=== PATIENT | female | born 1950 | race Caucasian/White ===

== ENCOUNTER 2021-11-28 00:56 | Day surgery (SDC) | payer MEDICARE, SELFPAY ==
[2021-10-12 14:16] VITALS: BMI 19.1
[2021-11-22 14:52] VITALS: BMI 19.1
--- NOTE | 2021-11-25 13:34 | PM.HPGS ---
History of Present Illness History of Present Illness Consent: Risks, benefits, and alternatives have been discussed and questions answered. Patient agrees to proceed with procedure. Chief complaint: positive cologuard; GERD Narrative: Dawn Bocanegra is a 70 year old female with a history of polyps, here for colon cancer screening; she also suffers from chronic acid reflux symptoms for which she has been on pantoprazole. Recently however she has had a weight loss about 30 lb along with a drop in her appetite. She denies abdominal pain Review of Systems Review of Systems: All systems reviewed & are unremarkable except as noted in HPI and below PMFSH Social History Social History Smoking packs per day: 1 Smoking cigarettes per day: 20.0 Years smoked: 40 Smoking pack-years: 40.00 Smoking status: Current every day smoker Tobacco type: cigarettes Alcohol intake: never Substance use: never Substance use type: does not use Living arrangements: alone Spiritual care concerns: No Meds Home Medications and Allergies Home Medications Medication Instructions Recorded Confirmed Type atorvastatin 40 mg tablet 40 mg PO DAILY 10/12/21 11/28/21 History cholecalciferol (vitamin D3) 50 50 mcg PO DAILY 10/12/21 11/28/21 History mcg (2,000 unit) chewable tablet clopidogrel 75 mg tablet (Plavix) 75 mg PO DAILY 10/12/21 11/28/21 History lisinopril 40 mg tablet 40 mg PO DAILY 10/12/21 11/28/21 History pantoprazole 20 mg tablet,delayed 20 mg PO QAM 10/12/21 11/28/21 History release Allergies Allergy/AdvReac Type Severity Reaction Status Date / Time buspirone Allergy Severe Unknown Verified 11/28/21 07:42 Penicillins Allergy Severe STOP Verified 11/28/21 07:42 BREATHING trovafloxacin Allergy Severe Unknown Verified 11/28/21 07:42 valacyclovir Allergy Severe Unknown Verified 11/28/21 07:42 Quinolones Allergy Mild Unknown Verified 11/28/21 07:42 Cephalosporins Allergy Unknown Unknown Verified 11/28/21 07:42 Exam Resp: Auscultation: clear to auscultation bilaterally Cardio: Rate: regular rate Rhythm: regular rhythm GI: GI Palp: Yes Soft to palpation and No Tenderness to palpation present (GI) Assessment and Plan Assessment and plan (1) Colon cancer screening: Code(s): Z12.11 - Encounter for screening for malignant neoplasm of colon Status: Acute Assessment and Plan: Colonoscopy with possible biopsy or polypectomy or cautery or injection of substances. (2) Weight loss: Code(s): R63.4 - Abnormal weight loss Status: Acute Assessment and Plan: EGD with possible biopsy or dilatation or cautery.
[2021-11-28 07:44] VITALS: BP 119/70; PULSE 74; RESP 16; TEMP 37.2; O2SAT 99; BMI 18.1
[2021-11-28] MEDS: LACTATED RINGERS 1,000 ML 150 ML IV CONT (07:57)
--- NOTE | 2021-11-28 08:09 | WPDANESEPPF ---
Anes - Initial Pre Proc Eval Procedure: Operation Date: 11/28/21 08:30 Proposed Procedures p Esophagogastroduodenoscopy & Colonoscopy - Jordan Page MD Date/Time: 11/28/21 08:09 Surgeon: Jordan Page MD Pre Op Diagnosis: positive cologuard; GERD Patient Data Age: 70 Gender: F Height: 1.65 m Weight: 49.5 kg Last Vital Signs Temp 98.9 F 11/28/21 07:44 Pulse 74 11/28/21 07:44 Resp 16 11/28/21 07:44 BP 119/70 11/28/21 07:44 Pulse Ox 99 11/28/21 07:44 O2 Del Method Room Air 11/28/21 07:44 Allergies Allergy/AdvReac Type Severity Reaction Status Date / Time buspirone Allergy Severe Unknown Verified 11/28/21 07:42 Penicillins Allergy Severe STOP Verified 11/28/21 07:42 BREATHING trovafloxacin Allergy Severe Unknown Verified 11/28/21 07:42 valacyclovir Allergy Severe Unknown Verified 11/28/21 07:42 Quinolones Allergy Mild Unknown Verified 11/28/21 07:42 Cephalosporins Allergy Unknown Unknown Verified 11/28/21 07:42 Home Medications Medication Instructions Recorded Confirmed Type atorvastatin 40 mg tablet 40 mg PO DAILY 10/12/21 11/28/21 History cholecalciferol (vitamin D3) 50 50 mcg PO DAILY 10/12/21 11/28/21 History mcg (2,000 unit) chewable tablet clopidogrel 75 mg tablet (Plavix) 75 mg PO DAILY 10/12/21 11/28/21 History lisinopril 40 mg tablet 40 mg PO DAILY 10/12/21 11/28/21 History pantoprazole 20 mg tablet,delayed 20 mg PO QAM 10/12/21 11/28/21 History release Patient hx anesthesia problems: none Family hx anesthesia problems: none Results Review: All pre-operative results and documents have been reviewed as part of the pre-operative evaluation. COUNTS INCLUDE 234 BEDS AT THE [facility] Social History Social History Smoking packs per day: 1 Smoking cigarettes per day: 20.0 Years smoked: 40 Smoking pack-years: 40.00 Smoking status: Current every day smoker Tobacco type: cigarettes Alcohol intake: never Substance use: never Substance use type: does not use Living arrangements: alone Spiritual care concerns: No Anes - Eval Final PreProcedure Day of Procedure 11/28/21 08:09 Patient weight: normal Heart: regular rate and rhythm Lungs: clear to auscultation Airway: Mallampati scale class II Neurological: alert and oriented Last oral intake: >/= 8 hours ASA classification: III Emergent: no Anesthetic plan: proceed Anesthesia type and monitoring: general GIVS and standard monitoring Results Review: All pre-operative results and documents have been reviewed as part of the pre-operative evaluation. Informed Consent: The patient's anesthetic plan and its attendant risks and benefits were discussed with the patient/family/POA. Questions were solicited and answers provided to the satisfaction of the patient/family/POA.
--- NOTE | 2021-11-28 08:43 | SUR.OPER ---
[facility] [phone] [place] [phone]
[2021-11-28] MEDS: SIMETHICONE ORAL SUSPENSION 20 MG/0.3 ML 30 ML BOTTLE 0.6 ML IRRIGATION (08:48)
[2021-11-28 08:58] VITALS: BP 118/66; PULSE 69; RESP 23; O2SAT 98
[2021-11-28 09:08] VITALS: BP 132/59; PULSE 65; RESP 29; O2SAT 99
[2021-11-28 09:18] VITALS: BP 125/61; PULSE 60; RESP 23; O2SAT 100
== END 2021-11-28 09:22 | disposition home or self-care (01) ==
PROVIDERS: PCP Internal Medicine; Visit Provider Internal Medicine Gastroenterology
PROC: 0DJ08ZZ Inspection of Upper Intestinal Tract, Via Natural or Artificial Opening Endoscopic (ICD-10-PCS; CPT 43235; principal; 2021-11-28 08:30)
DX: Z12.11 Encounter for screening for malignant neoplasm of colon (principal); D12.3 Benign neoplasm of transverse colon; R68.81 Early satiety; R63.4 Abnormal weight loss; K21.9 Gastro-esophageal reflux disease without esophagitis; R19.5 Other fecal abnormalities; F17.210 Nicotine dependence, cigarettes, uncomplicated
CPT/HCPCS: 45385; 43239; 87081; 88305; J2001; J2704; J7120

== ENCOUNTER 2022-04-24 09:43 | Outpatient (CLI) | payer MEDICARE, SELFPAY ==
--- NOTE | ~2022-04-24 | CT_ITS ---
EXAMINATION: CT lung screening DATE: 04/24/2022 10:21 INDICATION: History of nicotine dependence. TECHNIQUE: Computed tomography (CT) of the chest was performed without intravenous contrast. The dose -length product was 70.36 mGy-cm. Automated exposure control and iterative reconstruction technique w ere employed. COMPARISON: CT dated 06/11/2018 FINDINGS: There is evidence for chronic granulomatous disease. There is extensive atherosclerosis of the aorta and great vessels. No thoracic lymphadenopathy. Heart size normal. No significant pleural o r pericardial effusion. Severe emphysema. There is chronic scarring of the lung apices. There is a sesay bsolid nodule with a solid component measuring 8 mm in the right lower lobe with irregular margins, i mage 84. There is a calcified granuloma in the left upper lobe. There is a stent in the proximal left subclavian artery. There is generalized demineralization. Accentuated thoracic kyphosis. There is a left renal artery stents. IMPRESSION: 1. Lung Rads category 4B, very suspicious. Recommend correlation with tissue sampling or PET/CT exami nation. Reviewed, dictated and finalized at location B. CHANGER IMPRESSION: 1. Lung Rads category 4B, very suspicious. Recommend correlation with tissue sa mpling or PET/CT examination.
== END 2022-04-24 09:44 | disposition home or self-care (01) ==
PROVIDERS: PCP Physician Assistant Medical
DX: Z12.2 Encounter for screening for malignant neoplasm of respiratory organs (principal); Z87.891 Personal history of nicotine dependence; R91.8 Other nonspecific abnormal finding of lung field
CPT/HCPCS: 71271

== ENCOUNTER 2022-06-01 08:55 | Outpatient (CLI) | payer MEDICARE, SELFPAY ==
--- NOTE | ~2022-06-01 | PE_ITS ---
EXAMINATION: PET skull to mid thigh DATE: 06/01/2022 10:55 INDICATION: Suspicious lung nodule on lung cancer screening CT TECHNIQUE: Blood glucose level was 112 mg/dL. 10.481 mCi of 18-fluorodeoxyglucose (18-FDG) was admini stered i.v. Low dose computed tomography (CT) images were acquired from the base of the brain to the proximal thighs for attenuation correction and anatomic localization. Positron emission tomography (P ET) images were acquired in the same distribution beginning 57 minutes after injection. The dose-steven th product (DLP) was 389.16 mGy-cm. COMPARISON: 04/04/2022 FINDINGS: Head/neck: There has been interval development of infarcts in the right frontal and parietal lobes. N o abnormal FDG uptake is identified. Mild FDG uptake in the oral cavity is likely physiologic. Chest: There is severe emphysema. There is an 8 mm nodule of the right lower lobe with abnormal FDG u ptake in an SUV max of 4.6. There is a small focal area of FDG uptake centered at the right hilum whi ch could correspond to a hilar lymph node although no pathologically enlarged lymph nodes are seen. T he heart size is normal. There is dependent atelectasis. No pleural effusion or pneumothorax. Abdomen/pelvis/proximal thighs: Physiologic FDG activity is present in the bowel and urinary tract. N o abnormal FDG uptake is identified. The gallbladder is surgically absent. The liver, pancreas, and a drenal glands are normal. Punctate calcifications in an otherwise normal spleen likely represent heal ed granulomatous disease. The kidneys are unremarkable. Endoluminal stents are noted in the common il iac arteries. No pathologically enlarged abdominal or pelvic lymph nodes are identified. There is no free intraperitoneal gas or evidence of bowel obstruction. Musculoskeletal: No abnormal FDG uptake is identified. There is moderate spondylosis of the spine. IMPRESSION: 1. 8 mm right lower lobe nodule with abnormal FDG uptake, suspicious for primary bronchogenic carcino ma. Reviewed, dictated and finalized at location L. EXPEDITOR IMPRESSION: 1. 8 mm right lower lobe nodule with abnormal FDG uptake, suspicious for primar y bronchogenic carcinoma.
[2022-06-01 09:28] LABS: Glucose Point of Care 112 mg/dl (65-105)
== END 2022-06-01 08:56 | disposition home or self-care (01) ==
PROVIDERS: PCP Physician Assistant Medical; Visit Provider Internal Medicine Cardiovascular Disease
DX: R91.8 Other nonspecific abnormal finding of lung field (principal)
CPT/HCPCS: 78815; A9552

== ENCOUNTER 2022-07-21 02:39 | Outpatient (CLI) | payer MEDICARE, SELFPAY ==
[2022-06-27 11:24] VITALS: BMI 20.1
--- NOTE | 2022-06-27 11:25 | PC.NURSE ---
Pre Radiology instructions Report to the outpatient [facility] on date _07/03/22____ Procedure Time: _9:00am, PROCEDURE AT 11:00AM___ YOU MAY BE MONITORED AT HOSPITAL FOR UP TO 4 HOURS AFTER YOUR PROCEDURE. A visitors will be allowed to accompany the patient into the hospital. ?The visitor will be instructed to remain with patient at all times or leave the building due to restrictions.? We will allow the visitor to come back to the postoperative area when patient is ready.? NO children visitors allowed at this time. You and your visitor will be asked to self-screen and do not enter if you have any COVID symptoms. A mask is OPTIONAL within the hospital. Patients are to have no food or drink 6 hours prior to procedure time (5:00AM) Driving will be restricted after the procedure, you must have a person to drive you home. Labs will be drawn in preop area and once reviewed, you will be taken to radiology area for procedure. When the procedure is completed, you will be taken to outpatient where you will be monitored for several hours. You may have one visitor in this area. Other than holding anti-coagulants, patient may take other medication(s) as scheduled. Prior to your appointment date patients are instructed to hold anti-coagulants after discussing with ordering provider to stop. If unable to discontinue anti-coagulants please notify radiologist. ? No aspirin or warfarin (Coumadin) for 7 days prior to the procedure. ? No clopidogrel (Plavix), ticagrelor (Brilinta), prasugrel (Effient) or dabigatran (Pradaxa) for 5 days prior to the procedure. ? No rivaroxaban (Xarelto), apixaban (Eliquis), dipyridamole (Aggrenox or Persantine) or cilostazol (Pletal) for 2 days prior to the procedure. Medications to discontinue per physician: __HOLD PLAVIX 5 DAYS PRE-PROCEDURE Date to take last dose: __06/27/22 Please leave all valuables, including medications, at home the day of procedure. The hospital will not accept responsibility for valuables. Wear comfortable, loose fitting clothing.? Follow any additional instructions given to you from ordering provider. PT UNAWARE OF ALL HER ALLERGIES, SHE WILL BRING CONFIRMED LIST TO PROCEDURE. Telephone instructions given to ___PATIENT and asked if any additional questions and then verbalized understanding. Patient advised to call scheduling provider office or registration scheduling [phone] if any additional questions.
[2022-07-05 08:48] VITALS: BMI 20.1
--- NOTE | 2022-07-05 08:49 | PC.NURSE ---
Pre Radiology instructions Report to the outpatient [facility] on date _07/17/22 AT 9:00AM____ Procedure Time: __1100:AM__ YOU MAY BE MONITORED AT HOSPITAL FOR UP TO 4 HOURS AFTER YOUR PROCEDURE. A visitors will be allowed to accompany the patient into the hospital. ?The visitor will be instructed to remain with patient at all times or leave the building due to restrictions.? We will allow the visitor to come back to the postoperative area when patient is ready.? NO children visitors allowed at this time. You and your visitor will be asked to self-screen and do not enter if you have any COVID symptoms. A mask is OPTIONAL within the hospital. Patients are to have no food or drink 6 hours prior to procedure time- 5:00AM Driving will be restricted after the procedure, you must have a person to drive you home. Labs will be drawn in preop area and once reviewed, you will be taken to radiology area for procedure. When the procedure is completed, you will be taken to outpatient where you will be monitored for several hours. You may have one visitor in this area. Other than holding anti-coagulants, patient may take other medication(s) as scheduled. Prior to your appointment date patients are instructed to hold anti-coagulants after discussing with ordering provider to stop. If unable to discontinue anti-coagulants please notify radiologist. ? No aspirin or warfarin (Coumadin) for 7 days prior to the procedure. ? No clopidogrel (Plavix), ticagrelor (Brilinta), prasugrel (Effient) or dabigatran (Pradaxa) for 5 days prior to the procedure. ? No rivaroxaban (Xarelto), apixaban (Eliquis), dipyridamole (Aggrenox or Persantine) or cilostazol (Pletal) for 2 days prior to the procedure. Medications to discontinue per physician: _PLAVIX 5 DAYS PRE-OP Date to take last dose: ___07/11/22 Please leave all valuables, including medications, at home the day of procedure. The hospital will not accept responsibility for valuables. Wear comfortable, loose fitting clothing.? Follow any additional instructions given to you from ordering provider. Telephone instructions given to ___PATIENT and asked if any additional questions and then verbalized understanding. Patient advised to call scheduling provider office or registration scheduling [phone] if any additional questions.
--- NOTE | 2022-07-17 15:50 | PC.NURSE ---
Pre Radiology instructions Report to the outpatient [facility] on date _07/21/22 @ 0930____ Procedure Time: _1130___ YOU MAY BE MONITORED AT HOSPITAL FOR UP TO 4 HOURS AFTER YOUR PROCEDURE. A visitors will be allowed to accompany the patient into the hospital. ?The visitor will be instructed to remain with patient at all times or leave the building due to restrictions.? We will allow the visitor to come back to the postoperative area when patient is ready.? NO children visitors allowed at this time. You and your visitor will be asked to self-screen and do not enter if you have any COVID symptoms. A mask is OPTIONAL within the hospital. Patients are to have no food or drink 6 hours prior to procedure time (0530 AM) Driving will be restricted after the procedure, you must have a person to drive you home. Labs will be drawn in preop area and once reviewed, you will be taken to radiology area for procedure. When the procedure is completed, you will be taken to outpatient where you will be monitored for several hours. You may have one visitor in this area. Other than holding anti-coagulants, patient may take other medication(s) as scheduled. Prior to your appointment date patients are instructed to hold anti-coagulants after discussing with ordering provider to stop. If unable to discontinue anti-coagulants please notify radiologist. ? No aspirin or warfarin (Coumadin) for 7 days prior to the procedure. ? No clopidogrel (Plavix), ticagrelor (Brilinta), prasugrel (Effient) or dabigatran (Pradaxa) for 5 days prior to the procedure. ? No rivaroxaban (Xarelto), apixaban (Eliquis), dipyridamole (Aggrenox or Persantine) or cilostazol (Pletal) for 2 days prior to the procedure. Medications to discontinue per physician: __PLAVIX Date to take last dose: _PT STATES LAST DOSE TAKEN WAS 07/11/22___ Please leave all valuables, including medications, at home the day of procedure. The hospital will not accept responsibility for valuables. Wear comfortable, loose fitting clothing.? Follow any additional instructions given to you from ordering provider. Telephone instructions given to ___PATIENT and asked if any additional questions and then verbalized understanding. Patient advised to call scheduling provider office or registration scheduling [phone] if any additional questions.
[2022-07-17 15:51] VITALS: BMI 20.1
[2022-07-21] VITALS (8 sets, daily range): BP systolic 103–177; BP diastolic 47–72; PULSE 57–63; RESP 16–22; TEMP 36.5; O2SAT 95–100
--- NOTE | ~2022-07-21 | CT_ITS ---
EXAMINATION: CT biopsy lung w/imaging DATE: 07/21/2022 11:31 INDICATION: Right lung lower lobe nodule. TECHNIQUE: The procedure including the risks, benefits, and alternatives and possibility of chest tub e placement were discussed with the patient. Risks discussed included infection, hemorrhage, approxim ately 1/3 risk of pneumothorax, approximately 1/10 risk of pneumothorax severe enough to warrant ches t tube placement, and rarely . The patient understood the risks and agreed to proceed. The patie nt was placed prone. The skin overlying the right lung lower lobe was prepped and draped in sterile fashion. Anesthetic was administered with 1% lidocaine subcutaneously. A 19 gauge outer needle was advanced under CT guidance to the lesion of interest. A 20 gauge core biopsy needle was then used to obtain 3 core biopsy specimens. The needle was removed and the entry site was cleaned and dressed. Th e mA was adjusted according to patient size. Iterative reconstruction technique was employed. The dos e-length product was 147.97 mGy-cm. There were no immediate complications. FINDINGS: CT images demonstrate the outer needle tip in an 8 mm nodule in right lung lower lobe. Ther e is severe emphysema. IMPRESSION: 1. CT-guided core needle biopsy of a nodule in right lung lower lobe. Reviewed, dictated and finalized at location A. INSTALLER
--- NOTE | ~2022-07-21 | XR_ITS ---
EXAMINATION: XR chest 1V portable DATE: 07/21/2022 12:41 INDICATION: Right lung nodule status post percutaneous biopsy. TECHNIQUE: A single frontal view of the chest was obtained. COMPARISON: Chest single view at 11:25 AM FINDINGS: There are lucencies and interstitial opacities in the lungs, consistent with severe emphyse ma. A calcified left lung nodule and calcified left hilar and mediastinal lymph nodes are consistent with old granulomatous disease. No pleural effusion or pneumothorax. Cardiomegaly is noted. IMPRESSION: 1. Severe emphysema. 2. Cardiomegaly. Reviewed, dictated and finalized at location A. GER ANIMATION
--- NOTE | ~2022-07-21 | XR_ITS ---
EXAMINATION: XR chest 1V portable DATE: 07/21/2022 14:36 INDICATION: Lung biopsy status post percutaneous biopsy. TECHNIQUE: A single frontal view of the chest was obtained. COMPARISON: Chest single view at 12:36 PM FINDINGS: There are lucencies and interstitial opacities in the lungs, consistent with severe emphyse ma. A calcified left lung nodule and calcified left hilar and mediastinal lymph nodes are consistent with old granulomatous disease. No pleural effusion or pneumothorax. The heart size is normal. IMPRESSION: 1. Severe emphysema. Reviewed, dictated and finalized at location A. MS ADJUSTER IMPRESSION: 1. Severe emphysema.
--- NOTE | ~2022-07-21 | XR_ITS ---
EXAMINATION: XR chest 1V DATE: 07/21/2022 11:30 INDICATION: Right lung nodule status post percutaneous biopsy. TECHNIQUE: A single frontal view of the chest was obtained. COMPARISON: Chest CT 04/24/2022, chest single view 06/30/2004 FINDINGS: There are lucencies in the lungs, consistent with emphysema. A calcified left lung nodule a nd calcified left hilar and mediastinal lymph nodes are consistent with old granulomatous disease. Th ere are mild airspace opacities in right lower lobe. No pleural effusion or pneumothorax. Cardiomegal y is noted. IMPRESSION: 1. Mild airspace opacities in left lower lobe, consistent with postbiopsy hemorrhage. 2. Emphysema. 3. Cardiomegaly. Reviewed, dictated and finalized at location A. K AND TRANSFER BEADER IMPRESSION: 1. Mild airspace opacities in left lower lobe, consistent with postbiopsy hemor rhage. 2. Emphysema. 3. Cardiomegaly.
[2022-07-21 10:15] LABS: Basophils Absolute Auto 0.1 K/mm3 (0.0-0.1); Basophils Percent Auto 0.6 % (0.2-1.2); Eosinophils Absolute Auto 0.2 K/mm3 (0-0.3); Eosinophils Percent Auto 1.5 % (0-4.4); Hemoglobin 14.3 g/dL (12.0-15.0); Immature Granulocyte Absolute 0.05 K/mm3 (0.00-0.031); Immature Granulocyte Percent A 0.5 % (0-0.5); Lymphocytes Absolute Auto 2.39 K/mm3 (0.9-3.2); Lymphocytes Percent Auto 24.6 % (18.3-44.2); Mean Corpuscular HGB Conc 31.8 g/dl (32-36); Mean Corpuscular Hemoglobin 31.4 pg (26-34); Mean Corpuscular Volume 98.7 fl (80-100); Monocytes Absolute Auto 0.7 K/mm3 (0.1-0.6); Monocytes Percent Auto 7.6 % (2.6-8.5); Neutrophils Absolute Auto 6.3 K/mm3 (1.3-6.7); Neutrophils Percent Auto 65.2 % (45.5-73.1); Platelet Count Result 200 k/mm3 (150-375); Red Blood Count 4.56 M/mm3 (4.2-5.4); Red Cell Distribution Width 14.8 % (11.5-14.5); White Blood Count 9.7 K/mm3 (4.5-10.0)
[2022-07-21 10:34] LABS: Prothrombin Time 12.9 Seconds (11.1-14.7)
--- NOTE | 2022-07-21 12:54 | SUR.PHASEII ---
1235 PORTABLE CXR DONE.
--- NOTE | 2022-07-21 14:38 | SUR.PHASEII ---
PORTABLE CXR DONE AT 1430. DR. LEANNE QUIÑONES'D PATIENT TO GO HOME.
== END 2022-07-21 14:53 | disposition home or self-care (01) ==
PROVIDERS: Radiology Diagnostic Radiology; PCP Physician Assistant Medical; Referring Provider Internal Medicine Hematology & Oncology; Visit Provider Radiology Diagnostic Radiology
PROC: BB24ZZZ Computerized Tomography (CT Scan) of Bilateral Lungs (ICD-10-PCS; CPT 32408; principal; 2022-07-21 11:30)
DX: R91.1 Solitary pulmonary nodule (principal)
CPT/HCPCS: 32408; 36415; 71045; 85025; 85610; 88305

== ENCOUNTER 2022-09-11 08:32 | Outpatient (CLI) | payer MEDICARE, SELFPAY ==
--- NOTE | ~2022-09-11 | CT_ITS ---
EXAMINATION: CT diagnostic chest w con DATE: 09/11/2022 09:11 INDICATION: Solitary pulmonary nodule TECHNIQUE: Computed tomography (CT) of the chest was performed with 75 cc Omnipaque 350 intravenous c ontrast. The dose-length product was 140.69 mGy-cm. Automated exposure control and iterative reconstr uction technique were employed. COMPARISON: CT dated 06/11/2018 and 04/24/2022 FINDINGS: No significant thoracic lymphadenopathy. No significant pleural or pericardial effusion. Th ere is left ventricular hypertrophy. There is a partially visualized 3 cm infrarenal abdominal aortic aneurysm with left renal artery stent present. There are cholecystectomy clips. There are calcified granulomas of the spleen. There is atherosclerosis of the aorta and coronary arteries. Severe emphyse ma. Slightly increased size of spiculated 1 cm nodule right lower lobe allowing for differences of te chnique. There is a 6 mm right lower lobe nodule in the superior segment, image 65. No endobronchial lesions. Calcified granuloma left apex. There is bilateral lower lobe atelectasis/scarring. No focal lytic or blastic lesions. Mild thoracic spondylosis. Mild superior endplate compression deformity of T12, likely chronic. IMPRESSION: 1. Slightly increased size of 1 cm right lower lobe nodule compared with prior study, concerning for bronchogenic carcinoma. 2: Right lower lobe nodule in the superior segment measuring 6 mm which may represent chronic granul omatous disease, primary malignancy or metastatic disease. 3: Severe emphysema. Reviewed, dictated and finalized at location B. IMPRESSION: 1. Slightly increased size of 1 cm right lower lobe nodule compared with prior study, concerning for bronchogenic carcinoma. 2: Right lower lobe nodule in the superior segment measuring 6 mm which may re present chronic granulomatous disease, primary malignancy or metastatic disease . 3: Severe emphysema.
[2022-09-11 09:05] LABS: Estimated Glomerular Filt Rate 55
== END 2022-09-11 08:33 | disposition home or self-care (01) ==
PROVIDERS: PCP Physician Assistant Medical; Visit Provider Radiology Radiation Oncology
DX: R91.1 Solitary pulmonary nodule (principal); J43.9 Emphysema, unspecified
CPT/HCPCS: 71260; Q9967

== ENCOUNTER 2022-11-14 09:27 | Outpatient (CLI) | payer MEDICARE, SELFPAY ==
--- NOTE | ~2022-11-14 | CT_ITS ---
EXAMINATION:CT diagnostic chest w con DATE: 11/14/2022 09:52 INDICATION: Lung mass. TECHNIQUE: Computed tomography (CT) of the chest was performed with 75 mL Omnipaque 350 intravenous c ontrast. Automated exposure control and iterative reconstruction technique were employed. The dose-le ngth product (DLP) was 129.91 mGy-cm. COMPARISON: Chest CT 09/11/2022, 04/24/2022 FINDINGS: There is severe emphysema. There is mild scarring at the lung apices. A calcified left lung nodule and calcified left hilar and mediastinal lymph nodes are consistent with old granulomatous di sease. There are peripheral groundglass and airspace opacities in right lower lobe. There is a 6 mm n odule in superior segment right lower lobe, stable from 04/24/2022, likely benign. No pleural effusio n. There is calcified atherosclerosis of the aorta and many of the other arteries. There is a patent stent in proximal left subclavian artery. The heart size is normal. No pericardial effusion. There ar e coronary artery calcifications. Calcifications in the spleen are consistent with old granulomatous disease. There are changes of cholecystectomy. There is mild thoracic spondylosis. There are bridging endplate osteophytes at multiple levels in the spine, consistent with diffuse idiopathic skeletal hy perostosis (DISH). IMPRESSION: 1. Peripheral groundglass and airspace opacities in right lower lobe that obscure the region of the p reviously described nodule. These findings may be atelectasis or treatment change. 2. Severe emphysema. Reviewed, dictated and finalized at location A. IMPRESSION: 1. Peripheral groundglass and airspace opacities in right lower lobe that obscu re the region of the previously described nodule. These findings may be atelect asis or treatment change. 2. Severe emphysema.
== END 2022-11-14 09:28 | disposition home or self-care (01) ==
LOC: ANHIMG 09:28
PROVIDERS: PCP Physician Assistant Medical; Visit Provider Internal Medicine Hematology & Oncology
DX: R91.8 Other nonspecific abnormal finding of lung field (principal); J43.9 Emphysema, unspecified
CPT/HCPCS: 71260; Q9967

== ENCOUNTER 2023-02-20 09:17 | Outpatient (CLI) | payer MEDICARE, SELFPAY ==
--- NOTE | ~2023-02-20 | CT_ITS ---
Clinical Indication: Right lung mass CT Scan of the Chest with Contrast: Technique: Contiguous sections were acquired throughout the chest after intravenous administration of 75 cc of Omnipaque 350. Dose reduction technique was used on this scan by utilizing automated exposu re control and iterative reconstruction technique. The dose-length product (DLP) was 207.28 mGy-cm. COMPARISON: 11/14/2022 and 09/11/2022 Findings: There is no evidence of any significant mediastinal, hilar or axillary lymphadenopathy. No large cent ral pulmonary embolus evident. There is no evidence of aortic dissection or aneurysm. There are ather osclerotic calcifications of the aorta and coronary arteries There is no evidence of pleural or pericardial effusion. There is severe emphysema. 5 mm pulmonary nodule in the superior segment right lower lobe is similar to prior exams (axial image 59). There is an additional peripheral right lower lobar nodule measuring 8 mm, also similar to prior exams. Images through the upper abdomen reveal no abnormalities. Impression: Right lower lobe pulmonary nodules, as detailed above, similar to prior exams. Severe emphysema. Reviewed, dictated and finalized at location . Impression: Right lower lobe pulmonary nodules, as detailed above, similar to prior exams. Severe emphysema.
[2023-02-20 09:57] LABS: Estimated Glomerular Filt Rate 54
== END 2023-02-20 09:18 | disposition home or self-care (01) ==
PROVIDERS: PCP Physician Assistant Medical; Visit Provider Internal Medicine Hematology & Oncology
DX: R91.8 Other nonspecific abnormal finding of lung field (principal)
CPT/HCPCS: 71260; Q9967

== ENCOUNTER 2023-02-27 11:13 | Outpatient (CLI) | payer MEDICARE, SELFPAY ==
[2023-02-27 11:30] LABS: Basophils Absolute Auto 0.1 K/mm3 (0.0-0.1); Basophils Percent Auto 0.7 % (0.2-1.2); Eosinophils Absolute Auto 0.1 K/mm3 (0-0.3); Eosinophils Percent Auto 1.7 % (0-4.4); Hematocrit 42.9 % (37.0-47.0); Hemoglobin 13.7 g/dL (12.0-15.0); Immature Granulocyte Absolute 0.03 K/mm3 (0.00-0.031); Immature Granulocyte Percent A 0.4 % (0-0.5); Lymphocytes Percent Auto 28.7 % (18.3-44.2); Mean Corpuscular HGB Conc 31.9 g/dl (32-36); Mean Corpuscular Hemoglobin 31.7 pg (26-34); Mean Corpuscular Volume 99.3 fl (80-100); Mean Platelet Volume 8.7 fl (7.4-10.4); Monocytes Absolute Auto 0.7 K/mm3 (0.1-0.6); Neutrophils Absolute Auto 5.1 K/mm3 (1.3-6.7); Neutrophils Percent Auto 60.5 % (45.5-73.1); Platelet Count Result 252 k/mm3 (150-375); Red Blood Count 4.32 M/mm3 (4.2-5.4); Red Cell Distribution Width 13.2 % (11.5-14.5); White Blood Count 8.4 K/mm3 (4.5-10.0)
[2023-02-27 11:38] LABS: Blood Urea Nitrogen 9 mg/dL (8-26); Carbon Dioxide 26 mmol/L (22-30); Chloride 102 mmol/L (98-109); Estimated Glomerular Filt Rate 49; Glucose 100 mg/dL (70-105); Potassium 3.9 mmol/L (3.5-4.9); Sodium 139 mmol/L (138-146)
[2023-02-27 12:28] LABS: Alanine Aminotransferase 13 U/L (6-35); Albumin Level 3.9 g/dL (3.5-5.1); Alkaline Phosphatase 100 U/L (38-126); Anion Gap 6 mmol/L (8-16); Aspartate Amino Transferase 20 U/L (14-36); Bilirubin,Total 0.6 mg/dL (0.2-1.3); Blood Urea Nitrogen 10 mg/dL (7-17); Carbon Dioxide 27 mmol/L (22-30); Chloride 104 mmol/L (98-107); Estimated Glomerular Filt Rate 54; Glucose 100 mg/dL (65-110); Potassium 3.9 mmol/L (3.4-5.0); Sodium 137 mmol/L (137-145)
== END 2023-02-27 11:14 | disposition home or self-care (01) ==
PROVIDERS: PCP Physician Assistant Medical; Visit Provider Internal Medicine Hematology & Oncology
DX: R91.8 Other nonspecific abnormal finding of lung field (principal)
CPT/HCPCS: 36415; 80047; 80053; 85025

== ENCOUNTER 2023-05-07 13:42 | Outpatient (CLI) | payer MEDICARE, SELFPAY ==
--- NOTE | ~2023-05-07 | CT_ITS ---
EXAMINATION:CT diagnostic chest w con DATE: 05/07/2023 14:37 INDICATION: Mass in right lung. TECHNIQUE: Computed tomography (CT) of the chest was performed with 75 mL Omnipaque 350 intravenous c ontrast. Automated exposure control and iterative reconstruction technique were employed. The dose-le ngth product (DLP) was 152.11 mGy-cm. COMPARISON: CT chest 02/20/2023, 04/24/2022 FINDINGS: There is severe emphysema. There is mild scarring at the lung apices. Calcified left lung n odules and calcified left hilar and mediastinal lymph nodes are consistent with old granulomatous dis ease. There is a 4 mm nodule in right lung upper lobe with improvement from 02/20/23, likely mild. There are airspace opacities in posterior aspect of right lowe r lobe. No pleural effusion. There is calcified atherosclerosis of the aorta and many of the other ar teries. There is a stent in proximal left subclavian artery. Cardiomegaly is noted. There are coronar y artery calcifications. No pericardial effusion. Calcifications in the spleen are consistent with ol d granulomatous disease. There are changes of cholecystectomy. There are bridging endplate osteophyte s at multiple levels in the spine, consistent with diffuse idiopathic skeletal hyperostosis (DISH). T here is a chronic compression fracture of T12. There is a compression fracture of T11 with 1/5 loss o f height, new from 02/20/2023. IMPRESSION: 1. Airspace opacities in right lower lobe, likely radiation pneumonitis. No evidence of malignancy. 2. Severe emphysema. 3. Acute/subacute T11 compression fracture, new from 02/20/2023. Reviewed, dictated and finalized at location E. UNITY RELATIONS COORDINATOR IMPRESSION: 1. Airspace opacities in right lower lobe, likely radiation pneumonitis. No doe dence of malignancy. 2. Severe emphysema. 3. Acute/subacute T11 compression fracture, new from 02/20/2023.
[2023-05-07 14:24] LABS: Estimated Glomerular Filt Rate 54
== END 2023-05-07 13:43 | disposition home or self-care (01) ==
PROVIDERS: PCP Physician Assistant Medical; Visit Provider Internal Medicine Hematology & Oncology
DX: R91.8 Other nonspecific abnormal finding of lung field (principal); J43.9 Emphysema, unspecified; S22.080D Wedge compression fracture of T11-T12 vertebra, subsequent encounter for fracture with routine healing; X58.XXXD Exposure to other specified factors, subsequent encounter
CPT/HCPCS: 71260; Q9967

== ENCOUNTER 2023-05-15 08:13 | Outpatient (CLI) | payer MEDICARE, SELFPAY ==
[2023-05-15 08:30] LABS: Basophils Absolute Auto 0.1 K/mm3 (0.0-0.1); Basophils Percent Auto 0.6 % (0.2-1.2); Eosinophils Absolute Auto 0.2 K/mm3 (0-0.3); Eosinophils Percent Auto 1.7 % (0-4.4); Hemoglobin 13.4 g/dL (12.0-15.0); Immature Granulocyte Absolute 0.03 K/mm3 (0.00-0.031); Immature Granulocyte Percent A 0.3 % (0-0.5); Lymphocytes Absolute Auto 2.15 K/mm3 (0.9-3.2); Mean Corpuscular HGB Conc 31.9 g/dl (32-36); Mean Corpuscular Hemoglobin 31.3 pg (26-34); Mean Corpuscular Volume 98.1 fl (80-100); Mean Platelet Volume 8.5 fl (7.4-10.4); Monocytes Absolute Auto 0.8 K/mm3 (0.1-0.6); Monocytes Percent Auto 8.5 % (2.6-8.5); Neutrophils Absolute Auto 5.8 K/mm3 (1.3-6.7); Neutrophils Percent Auto 64.9 % (45.5-73.1); Platelet Count Result 238 k/mm3 (150-375); Red Blood Count 4.28 M/mm3 (4.2-5.4); Red Cell Distribution Width 14.4 % (11.5-14.5)
[2023-05-15 08:36] LABS: Blood Urea Nitrogen 11 mg/dL (8-26); Carbon Dioxide 25 mmol/L (22-30); Chloride 101 mmol/L (98-109); Estimated Glomerular Filt Rate 54; Glucose 100 mg/dL (70-105); Ionized Calcium (POC) 1.12 mmol/L (1.11-1.31); Potassium 3.9 mmol/L (3.5-4.9); Sodium 138 mmol/L (138-146)
[2023-05-15 09:52] LABS: Alanine Aminotransferase 11 U/L (6-35); Albumin Level 3.9 g/dL (3.5-5.1); Alkaline Phosphatase 118 U/L (38-126); Anion Gap 8 mmol/L (8-16); Aspartate Amino Transferase 19 U/L (14-36); Bilirubin,Total 0.5 mg/dL (0.2-1.3); Blood Urea Nitrogen 12 mg/dL (7-17); Calcium 9.2 mg/dL (8.4-10.2); Carbon Dioxide 25 mmol/L (22-30); Chloride 103 mmol/L (98-107); Estimated Glomerular Filt Rate > 60; Glucose 105 mg/dL (65-110); Sodium 136 mmol/L (137-145)
== END 2023-05-15 08:14 | disposition home or self-care (01) ==
LOC: ANHLAB 08:18
PROVIDERS: PCP Physician Assistant Medical; Visit Provider Internal Medicine Hematology & Oncology
DX: R91.8 Other nonspecific abnormal finding of lung field (principal)
CPT/HCPCS: 36415; 80047; 80053; 85025

== ENCOUNTER 2023-09-06 10:15 | Outpatient (CLI) | payer MEDICARE, SELFPAY ==
--- NOTE | ~2023-09-06 | DEXA_ITS ---
Bone Density Report Name: FARHAD CABRERA Age: 72 Sex: Female Ethnicity: White Date of : 1950 Indication: postmenopausal; screening for osteoporosis; height loss; prior fracture; cancer; hysterectomy; Referring Provider: Quique Palomo Study: Bone densitometry was performed. Exam Date: September 06, 2023 Accession number: [id number] Bone Density: Region BMD T-score Z-score Classification AP Spine (L1-L4) 0.725 -2.9 -0.6 Osteoporosis Femoral Neck (Left) 0.438 -3.7 -1.7 Osteoporosis Total Hip (Left) 0.468 -3.9 -2.2 Osteoporosis Femoral Neck (Right) 0.446 -3.6 -1.6 Osteoporosis Total Hip (Right) 0.475 -3.8 -2.1 Osteoporosis Total Hip Mean 0.472 -3.9 -2.2 Osteoporosis World Health Organization criteria for BMD impression classify patients as: Normal (T-score at or above -1.0), Osteopenia (T-score between -1.0 and -2.5), or Osteoporosis (T-score at or below -2.5). 10-year Fracture Risk: FRAX not reported because: Some T-score for Spine Total or Hip Total or Femoral Neck at or below -2.5 Clinical Information Provided by Patient: Has had a low trauma fracture Smokes Has used the following medications: Vitamin D Has the following medical conditions: Cancer, Hysterectomy, COPD, lung cancer 2022 Patient maximum height was 64 Menopause Age: 29 No regular weight bearing exercise Does not regularly consume dairy products Drinks caffeinated beverages Onset of menses at age 15 Number of children 2 Impression: The patient has established osteoporosis, based on the Left Total Hip T-score and the existence of a prior fracture. The patient has risk factors, including: smoking, previous fracture. Discussion: HIGH RISK OF FRACTURE. BONE DENSITY IS UNDESIRABLY LOW AT ONE OR MORE SKELETAL SITES, CONSISTENT WITH POSTMENOPAUSAL OSTEOPOROSIS. This patient's lowest T-score, in a patient who has previously fractured, meets the World Health Organization's (WHO) criteria for severe osteoporosis. In untreated patients, the risk of osteoporotic fracture increases approximately two-fold for each 1.0 SD decrease in T-score. Low bone density is not the only risk factor for fracture; also consider factors such as patient's age, frailty or poor health, risk of falling, risk of injury, previous osteoporotic fracture, family history of osteoporosis, cigarette smoking, low body weight, etc. Not everyone with low bone mineral density has osteoporosis; osteomalacia and other metabolic bone disorders should also be considered. Patients who have osteoporosis should be evaluated for specific diseases and conditions (secondary causes) that may cause or contribute to bone loss. The [place] [employer]ocrinologists (AACE) and National Osteoporosis Foundation (NOF) recommend pharmacologic intervention for all postmenopausal women whose
== END 2023-09-06 10:16 ==
LOC: MICIMG 10:16
PROVIDERS: PCP Physician Assistant Medical; Visit Provider Internal Medicine Hematology & Oncology
DX: M81.0 Age-related osteoporosis without current pathological fracture (principal)
CPT/HCPCS: 77080

== ENCOUNTER 2023-09-17 13:43 | Outpatient (CLI) | payer MEDICARE, SELFPAY ==
--- NOTE | ~2023-09-17 | US_ITS ---
EXAMINATION: US carotid duplex BI DATE: 09/17/2023 14:55 INDICATION: Carotid atherosclerosis and stenosis TECHNIQUE: Grayscale, color Doppler, and pulsed Doppler images of the cervical carotid arteries were obtained. The degree of vessel stenosis is placed in one of the following categories: normal, <50%, 5 0-69%, >=70% but less than near-occlusion, near-occlusion, or total occlusion. Note that percent sten osis relative to normal distal artery lumen diameter is indirectly measured from velocity measurement s as described by Gustavo, et al. Radiology 2003; 229:340-346. COMPARISON: None. FINDINGS: RIGHT: The right common carotid artery (CCA) peak systolic velocity (PSV) is 48 cm/s. The right internal car otid artery (ICA) PSV is 315 cm/s. The right ICA end-diastolic velocity (EDV) is 11 cm/s. The right I CA/CCA PSV ratio is 6.6. Grayscale and color Doppler images yield an estimate of >=70% (but less than near occlusion) diameter reduction from plaque in the ICA. The external carotid artery (ECA) PSV is 115 cm/s. There is antegrade flow in the right vertebral artery. LEFT: The left CCA PSV is 118 cm/s. The left ICA PSV is 284 cm/s. The left ICA EDV is 55 cm/s. The left ICA /CCA PSV ratio is 2.4. Grayscale and color Doppler images yield an estimate of >=70% (but less than n ear occlusion) diameter reduction from plaque in the ICA. The ECA PSV is 92 cm/s. Again seen is retro grade flow in the left vertebral artery. IMPRESSION: 1. >=70% (but less than near occlusion) stenosis in the right internal carotid artery. 2. >=70% (but less than near occlusion) stenosis in the left internal carotid artery. 3. Unchanged retrograde flow in the left vertebral artery Reviewed, dictated and finalized at location A. IMPRESSION: 1. >=70% (but less than near occlusion) stenosis in the right internal carotid artery. 2. >=70% (but less than near occlusion) stenosis in the left internal carotid a rtery. 3. Unchanged retrograde flow in the left vertebral artery
== END 2023-09-17 13:44 | disposition home or self-care (01) ==
PROVIDERS: PCP Family Medicine; Visit Provider Internal Medicine Cardiovascular Disease
DX: C34.90 Malignant neoplasm of unspecified part of unspecified bronchus or lung (principal); I10 Essential (primary) hypertension; I65.23 Occlusion and stenosis of bilateral carotid arteries; E78.5 Hyperlipidemia, unspecified; F17.210 Nicotine dependence, cigarettes, uncomplicated
CPT/HCPCS: 93880

== ENCOUNTER 2023-09-18 13:55 | Outpatient (CLI) | payer MEDICARE, SELFPAY ==
--- NOTE | ~2023-09-18 | CT_ITS ---
EXAMINATION: CT brain wo con DATE: 09/18/2023 14:15 INDICATION: Dizziness. TECHNIQUE: Computed tomography (CT) of the head was performed without intravenous contrast. The mA wa s adjusted according to patient size. Iterative reconstruction technique was employed. The dose-lengt h product was 599.57 mGy-cm. COMPARISON: None FINDINGS: There are old infarcts involving the right frontal, parietal, and occipital lobes in the ex pected distribution of right middle cerebral artery. There are scattered areas of low attenuation in the cerebral white matter. There is an old infarct in the right basal ganglia. There is no intracrani al hemorrhage, acute infarction, or abnormal intracranial mass lesion. The ventricles are normal in s ize. There are likely changes of ocular lens replacement surgeries. There is mild mucosal thickening in the ethmoid sinuses. The mastoid air cells are normal. IMPRESSION: 1. 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 2. Moderate nonspecific cerebral white matter disease, which likely represents chronic small vessel i schemic disease. Reviewed, dictated and finalized at location E. IMPRESSION: 1. 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 2. Moderate nonspecific cerebral white matter disease, which likely represents chronic small vessel ischemic disease.
== END 2023-09-18 13:56 ==
LOC: MICIMG 13:59
PROVIDERS: PCP Internal Medicine Cardiovascular Disease; Referring Provider Internal Medicine Hematology & Oncology; Visit Provider Nurse Practitioner Family
DX: I65.29 Occlusion and stenosis of unspecified carotid artery (principal); C34.90 Malignant neoplasm of unspecified part of unspecified bronchus or lung; F17.200 Nicotine dependence, unspecified, uncomplicated; R42 Dizziness and giddiness; E78.5 Hyperlipidemia, unspecified; I10 Essential (primary) hypertension; R90.82 White matter disease, unspecified
CPT/HCPCS: 70450

== ENCOUNTER 2023-09-26 13:21 | Outpatient (CLI) | payer MEDICARE, SELFPAY ==
--- NOTE | ~2023-09-26 | CT_ITS ---
EXAMINATION: CTA neck DATE: 09/26/2023 14:13 INDICATION: Stenosis of carotid artery. TECHNIQUE: Computed tomographic angiography (CTA) of the neck was performed with 100 mL Omnipaque-350 intravenous contrast. Automated exposure control and iterative reconstruction technique were employe d. The dose-length product was 521.33 mGy-cm. Maximum intensity projection 3D-reconstructions were cr eated by the technologist on a separate workstation. COMPARISON: Ultrasound 09/17/2023, head CT 09/18/2023 FINDINGS: There is severe emphysema. There is mild scarring at the lung apices. There are old infarct s involving the right frontal, parietal, and occipital lobes. There are likely changes of ocular lens replacement surgeries. There are no pathologically enlarged lymph nodes. There is a stent in proxima l left subclavian artery. There is calcified atherosclerosis of the aorta and many of the other arter ies. Right vertebral artery is dominant. There is no significant stenosis of the vertebral arteries. There is total occlusion of cervical right internal carotid artery with supraclinoid reconstitution. There is plaque in the proximal left internal carotid artery. There is 36% stenosis of the proximal l eft internal carotid artery relative to normal distal artery lumen diameter (NASCET criteria). IMPRESSION: 1. 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 2. 36% stenosis of the proximal left internal carotid artery relative to normal distal artery lumen diameter (NASCET criteria). 3. Severe emphysema. Reviewed, dictated and finalized at location E. IMPRESSION: 1. 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 2. 36% stenosis of the proximal left internal carotid artery relative to shivani l distal artery lumen diameter (NASCET criteria). 3. Severe emphysema.
[2023-09-26 13:54] LABS: Estimated Glomerular Filt Rate 44
== END 2023-09-26 13:22 ==
LOC: MICIMG 13:23
PROVIDERS: PCP Internal Medicine Hematology & Oncology; Visit Provider Internal Medicine Cardiovascular Disease
DX: I65.29 Occlusion and stenosis of unspecified carotid artery (principal); J43.9 Emphysema, unspecified
CPT/HCPCS: 70498; Q9967

== ENCOUNTER 2023-11-08 12:47 | Outpatient (CLI) | payer MEDICARE, SELFPAY ==
--- NOTE | 2023-11-08 | ECHO_ITS ---
Patient Info Name: Dawn Bocanegra Age: 72 years : 1950 Gender: Female Ht: 63 in Wt: 146 lbs BSA: 1.73 m2 HR: 66 bpm BP: 178 / 68 mmHg Heart Rhythm: Sinus Rhythm Technical Quality: Fair Exam Date: 11/08/2023 1:01 PM Exam Location: Echo Lab Patient Status: Outpatient Admit Date: 11/08/2023 Staff Ordering Physician: Jonathan Vasquez MD Front Of House Manager: Angeles Owens RDCS Attending Provider: Jonathan Vasquez MD Referring Physician: Pedro DALTON; Exam Type: CA echo doppler color flow Study Info Indications C34.90 - Malignant neoplasm of unspecified part of unspecified bronchus or lung R42 - Dizziness and giddiness Complete two-dimensional, color flow and Doppler transthoracic echocardiogram is performed. Strain analysis performed. Summary 1. Left ventricular chamber dimension is normal. 2. Left ventricular systolic function is normal, estimated at 65-70%. 3. The left ventricular diastolic function is grade I diastolic dysfunction. 4. Global longitudinal strain is abnormal at -15 %. 5. Right ventricular systolic function is normal. 6. Left atrial chamber dimension is mildly enlarged. 7. There is mild tricuspid valve regurgitation. 8. There is mild pulmonic regurgitation. Left Ventricle Left ventricular chamber dimension is normal. Left ventricular systolic function is normal, estimated at 65-70%. There is no increased left ventricular wall thickness. The left ventricular diastolic function is grade I diastolic dysfunction. Global longitudinal strain is abnormal at -15 %. Right Ventricle Right ventricular chamber dimension is normal. Right ventricular systolic function is normal. Left Atria Left atrial chamber dimension is mildly enlarged. Right Atria Right atrial chamber dimension is normal. Atrial Septum Intact interatrial septum visualized by color flow imaging. Aortic Valve The aortic valve is probable trileaflet. There is moderate aortic valve sclerosis. There is no aortic valve stenosis. There is no aortic valve regurgitation. Pulmonic Valve The pulmonic valve is not well visualized. There is mild pulmonic regurgitation. Mitral Valve There is trace mitral valve regurgitation. The mitral valve annulus is moderately calcified. Tricuspid Valve There is mild tricuspid valve regurgitation. Pericardium/Pleural There is no pericardial effusion. Inferior Vena Cava Normal inferior vena cava with >50% collapse upon inspiration consistent with normal right atrial pressure, 3 mmHg. Aorta The aortic root size at the sinus of Valsalva is normal. Left Ventricular Outflow Tract Name Value Normal LVOT 2D LVOT Diameter 2.1 cm LVOT Doppler LVOT Peak Gradient 3 mmHg LVOT Mean Gradient 1 mmHg LVOT VTI 19 cm LVOT VTI/AV VTI Ratio 0.8 LVOT Stroke Volume 65 ml LVOT CO 4.1 l/min LVOT CI 2.4 l/min/m2 Pulmonic Valve Name Value Normal
== END 2023-11-08 12:48 | disposition home or self-care (01) ==
PROVIDERS: PCP Internal Medicine Hematology & Oncology; Visit Provider Internal Medicine Cardiovascular Disease
DX: C34.90 Malignant neoplasm of unspecified part of unspecified bronchus or lung (principal); R42 Dizziness and giddiness; I65.29 Occlusion and stenosis of unspecified carotid artery; F17.200 Nicotine dependence, unspecified, uncomplicated; E78.5 Hyperlipidemia, unspecified; I10 Essential (primary) hypertension; I07.1 Rheumatic tricuspid insufficiency; I37.1 Nonrheumatic pulmonary valve insufficiency
CPT/HCPCS: 93306

== ENCOUNTER 2023-12-13 08:28 | Outpatient (CLI) | payer MEDICARE, SELFPAY ==
--- NOTE | ~2023-12-13 | CT_ITS ---
Clinical Indication: Right lung mass CT Scan of the Chest with Contrast: Technique: Contiguous sections were acquired throughout the chest after intravenous administration of 75 cc of Omnipaque 350. Dose reduction technique was used on this scan by utilizing automated exposu re control and iterative reconstruction technique. The dose-length product (DLP) was 180.36 mGy-cm. COMPARISON: 05/07/2023 Findings: There is no evidence of any significant mediastinal, hilar or axillary lymphadenopathy. There is no f illing defect in the pulmonary arterial tree to suggest pulmonary embolus. There is no evidence of ao rtic dissection or aneurysm. There is no evidence of pleural or pericardial effusion. Severe emphysema present. Stable calcified left apical granuloma. There is increased irregular nodula r consolidation at the superior segment right lower lobe, now measuring 1.3 cm in diameter (axial claudia ge 63). There is increased irregular pleural-based consolidation the right lower lobe (axial image 79 for example). Mild bibasilar interstitial prominence is unchanged. Images through the upper abdomen reveal probable partially imaged infrarenal abdominal aortic aneurys m, measuring up to maximum of 3.1 cm on this exam of its visualized portion.. Impression: Increased 1.3 cm irregular right lower lobe nodule versus consolidation. Findings could reflect neopl astic process versus focal inflammatory process or atelectasis. Short-term follow-up exam after inter grant therapy advised. Increasing pleural-based consolidation right lower lobe, also suspicious for pneumonia. Again, short- term follow-up exam after interval therapy advised. Severe emphysema. Suspected partially imaged infrarenal abdominal aortic aneurysm, as above. Reviewed, dictated and finalized at location M. Impression: Increased 1.3 cm irregular right lower lobe nodule versus consolidation. Findin gs could reflect neoplastic process versus focal inflammatory process or atelec tasis. Short-term follow-up exam after interval therapy advised. Increasing pleural-based consolidation right lower lobe, also suspicious for pn eumonia. Again, short-term follow-up exam after interval therapy advised. Severe emphysema. Suspected partially imaged infrarenal abdominal aortic aneurysm, as above.
[2023-12-13 08:53] LABS: Estimated Glomerular Filt Rate > 60
== END 2023-12-13 08:29 | disposition home or self-care (01) ==
PROVIDERS: PCP Physician Assistant Medical; Visit Provider Internal Medicine Hematology & Oncology
DX: R91.8 Other nonspecific abnormal finding of lung field (principal); J43.9 Emphysema, unspecified
CPT/HCPCS: 71260; Q9967

== ENCOUNTER 2023-12-21 10:10 | Outpatient (CLI) | payer MEDICARE, SELFPAY ==
[2023-12-21 10:22] LABS: Basophils Absolute Auto 0.1 K/mm3 (0.0-0.1); Basophils Percent Auto 0.5 % (0.2-1.2); Eosinophils Absolute Auto 0.2 K/mm3 (0-0.3); Eosinophils Percent Auto 1.8 % (0-4.4); Hematocrit 41.9 % (37.0-47.0); Immature Granulocyte Absolute 0.03 K/mm3 (0.00-0.031); Immature Granulocyte Percent A 0.3 % (0-0.5); Lymphocytes Absolute Auto 2.35 K/mm3 (0.9-3.2); Lymphocytes Percent Auto 25.3 % (18.3-44.2); Mean Corpuscular Hemoglobin 30.3 pg (26-34); Mean Corpuscular Volume 97.7 fl (80-100); Mean Platelet Volume 8.3 fl (7.4-10.4); Monocytes Absolute Auto 0.8 K/mm3 (0.1-0.6); Monocytes Percent Auto 8.9 % (2.6-8.5); Neutrophils Absolute Auto 5.9 K/mm3 (1.3-6.7); Neutrophils Percent Auto 63.2 % (45.5-73.1); Platelet Count Result 278 k/mm3 (150-375); Red Blood Count 4.29 M/mm3 (4.2-5.4); Red Cell Distribution Width 13.7 % (11.5-14.5); White Blood Count 9.3 K/mm3 (4.5-10.0)
[2023-12-21 10:26] LABS: Blood Urea Nitrogen 7 mg/dL (8-26); Carbon Dioxide 25 mmol/L (22-30); Chloride 101 mmol/L (98-109); Estimated Glomerular Filt Rate 49; Glucose 88 mg/dL (70-105); Potassium 4.1 mmol/L (3.5-4.9); Sodium 138 mmol/L (138-146)
[2023-12-21 13:40] LABS: Alanine Aminotransferase 9 U/L (6-35); Alkaline Phosphatase 99 U/L (38-126); Anion Gap 7 mmol/L (4-12); Aspartate Amino Transferase 20 U/L (14-36); Bilirubin,Total 0.5 mg/dL (0.2-1.3); Blood Urea Nitrogen 8 mg/dL (7-17); Calcium 9.1 mg/dL (8.4-10.2); Carbon Dioxide 28 mmol/L (22-30); Chloride 101 mmol/L (98-107); Estimated Glomerular Filt Rate 54; Glucose 90 mg/dL (65-110); Potassium 4.1 mmol/L (3.4-5.0); Sodium 136 mmol/L (137-145)
== END 2023-12-21 10:11 | disposition home or self-care (01) ==
LOC: ANHLAB 10:12
PROVIDERS: PCP Physician Assistant Medical; Visit Provider Internal Medicine Hematology & Oncology
DX: M81.0 Age-related osteoporosis without current pathological fracture (principal); R91.8 Other nonspecific abnormal finding of lung field
CPT/HCPCS: 36415; 80047; 80053; 85025

== ENCOUNTER 2024-02-22 08:45 | Outpatient (CLI) | payer MEDICARE, SELFPAY ==
--- NOTE | ~2024-02-22 | CT_ITS ---
Clinical Indication: Right lung mass CT Scan of the Chest with Contrast: Technique: Contiguous sections were acquired throughout the chest after intravenous administration of 75 cc of Omnipaque 350. Dose reduction technique was used on this scan by utilizing automated exposu re control and iterative reconstruction technique. The dose-length product (DLP) was 275.81 mGy-cm. COMPARISON: 12/13/2023 Findings: There is no evidence of any significant mediastinal, hilar or axillary lymphadenopathy. There is no f illing defect in the pulmonary arterial tree to suggest pulmonary embolus. There is no evidence of ao rtic dissection or aneurysm. There is no evidence of pleural or pericardial effusion. Severe emphysema again noted. Stable calcified left apical granuloma. Stable 15 mm irregular posterio r right lower lobe pulmonary nodule (axial image 70 and 71). Pleural-based consolidation right lower lobe is unchanged as well. Probable bibasilar chronic interstitial disease is unchanged. Images through the upper abdomen reveal no abnormalities. Impression: Shaista change from prior exam. Stable 15 mm irregular right lower lobe pulmonary nodule. Additional area of pleural-based consolidation right lower lobe is unchanged. Severe emphysema and bibasilar chronic interstitial change. Reviewed, dictated and finalized at location . Impression: Shaista change from prior exam. Stable 15 mm irregular right lower lobe pulmonary nodule. Additional area of pleural-based consolidation right lower lobe is unchanged. Severe emphysema and bibasilar chronic interstitial change.
[2024-02-22 09:43] LABS: Estimated Glomerular Filt Rate 49
== END 2024-02-22 08:46 | disposition home or self-care (01) ==
PROVIDERS: PCP Physician Assistant Medical; Visit Provider Internal Medicine Hematology & Oncology
DX: R91.8 Other nonspecific abnormal finding of lung field (principal); J43.9 Emphysema, unspecified
CPT/HCPCS: 71260; Q9967

== ENCOUNTER 2024-06-27 09:20 | Outpatient (CLI) | payer MEDICARE, SELFPAY ==
[2024-06-27 09:36] LABS: Basophils Percent Auto 0.2 % (0.2-1.2); Eosinophils Percent Auto 0.3 % (0-4.4); Hematocrit 42.9 % (37.0-47.0); Hemoglobin 13.5 g/dL (12.0-15.0); Immature Granulocyte Absolute 0.03 K/mm3 (0.00-0.031); Immature Granulocyte Percent A 0.3 % (0-0.5); Lymphocytes Absolute Auto 2.46 K/mm3 (0.9-3.2); Lymphocytes Percent Auto 21.2 % (18.3-44.2); Mean Corpuscular HGB Conc 31.5 g/dl (32-36); Mean Corpuscular Hemoglobin 31.3 pg (26-34); Mean Corpuscular Volume 99.5 fl (80-100); Mean Platelet Volume 9.2 fl (7.4-10.4); Monocytes Absolute Auto 0.9 K/mm3 (0.1-0.6); Monocytes Percent Auto 7.7 % (2.6-8.5); Neutrophils Absolute Auto 8.2 K/mm3 (1.3-6.7); Neutrophils Percent Auto 70.3 % (45.5-73.1); Platelet Count Result 269 k/mm3 (150-375); Red Blood Count 4.31 M/mm3 (4.2-5.4); Red Cell Distribution Width 14.6 % (11.5-14.5); White Blood Count 11.6 K/mm3 (4.5-10.0)
[2024-06-27 09:41] LABS: Blood Urea Nitrogen 14 mg/dL (8-26); Carbon Dioxide 27 mmol/L (22-30); Chloride 101 mmol/L (98-109); Estimated Glomerular Filt Rate 49; Glucose 88 mg/dL (70-105); Ionized Calcium (POC) 1.18 mmol/L (1.11-1.31); Potassium 3.8 mmol/L (3.5-4.9); Sodium 139 mmol/L (138-146)
[2024-06-27 10:31] LABS: Alanine Aminotransferase 14 U/L (6-35); Albumin Level 4.1 g/dL (3.5-5.1); Alkaline Phosphatase 95 U/L (38-126); Anion Gap 8 mmol/L (4-12); Aspartate Amino Transferase 22 U/L (14-36); Bilirubin,Total 0.6 mg/dL (0.2-1.3); Blood Urea Nitrogen 15 mg/dL (7-17); Calcium 9.2 mg/dL (8.4-10.2); Carbon Dioxide 27 mmol/L (22-30); Chloride 102 mmol/L (98-107); Estimated Glomerular Filt Rate 60; Glucose 89 mg/dL (65-110); Sodium 137 mmol/L (137-145)
[2024-06-27 10:32] LABS: Potassium 3.9 mmol/L (3.4-5.0)
== END 2024-06-27 09:21 | disposition home or self-care (01) ==
LOC: ANHLAB 09:21
PROVIDERS: PCP Physician Assistant Medical; Visit Provider Internal Medicine Hematology & Oncology
DX: R91.8 Other nonspecific abnormal finding of lung field (principal)
CPT/HCPCS: 36415; 80047; 80053; 85025

== ENCOUNTER 2024-07-10 10:10 | Outpatient (CLI) | payer MEDICARE, SELFPAY ==
--- NOTE | ~2024-07-10 | PE_ITS ---
EXAMINATION: PET skull to mid thigh DATE: 07/10/2024 12:18 INDICATION: Malignant neoplasm of lung. TECHNIQUE: Blood glucose level was 93 mg/dL. 10.966 mCi of 18-fluorodeoxyglucose (18-FDG) was adminis tered i.v. Low dose computed tomography (CT) images were acquired from the base of the brain to the p roximal thighs for attenuation correction and anatomic localization. Automated exposure control was e mployed. Dose-length product (DLP) was 805 mGy-cm. Positron emission tomography (PET) images were acq uired in the same distribution. COMPARISON: PET/CT 06/01/2022, chest CT 06/18/2024, 05/07/23 FINDINGS: Head/neck: There are likely changes of ocular lens replacement surgeries. There are scattered areas o f low attenuation in the cerebral white matter, likely chronic small vessel ischemic disease. 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 There are no pathologically enlarged lymp h nodes. Chest: There is a stent in proximal left subclavian artery. There is severe emphysema. A calcified le ft lung nodule and calcified left hilar and mediastinal lymph nodes are consistent with old granuloma tous disease. There are airspace opacities in the lower lobes, right worse than left, with increased activity. There is increased activity in normal-sized and borderline-enlarged right hilar and mediast inal lymph nodes. No pleural effusion. The heart size is normal. There are coronary artery calcificat ions. No pericardial effusion. Abdomen/pelvis/proximal thighs: The liver is normal. There are changes of cholecystectomy. Calcificat ions in the spleen are consistent with old granulomatous disease. The pancreas, adrenal glands, and k idneys are normal. There are stents in the left bilateral common iliac arteries and left external flaquito ac artery. There are no dilated loops of bowel. 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 There is a stent in left renal artery. There are no pathologically enlarged lymph nodes. There is no free intraperitoneal fluid. There is no osseous malignancy. There is subcutaneous old fat necrosi s in right buttock. IMPRESSION: 1. Airspace opacities with increased activity in the lower lobes, right worse than left, consistent w ith radiation pneumonitis. 2. Severe emphysema. 3. Increased activity in normal-sized and borderline-enlarged right hilar and mediastinal lymph nodes , which may be reactive or metastatic disease. Reviewed, dictated and finalized at location A. NING PROFESSIONAL IMPRESSION: 1. Airspace opacities with increased activity in the lower lobes, right worse t pike left, consistent with radiation pneumonitis. 2. Severe emphysema. 3. Increased activity in normal-sized and borderline-enlarged right hilar and m ediastinal lymph nodes, which may be reactive or metastatic disease.
--- OUTSIDE RECORDS SUMMARY | 2024-07-10 10:36 | XMS_ITS | Clinical Summary ---
Author Organization [facility] Address [address] [place] [address] Phone Care Team Providers Care Pharmacy Specialist Name Role Phone Unavailable Primary Care Provider Unavailabl e Allergies Active Allergy Reactions Criticality Noted Date Comments Cephalexin Unknown Hydralazine Other (See Comments) GI upset Penicillins Anaphylaxis High Triamterene-Hydrochlorothiaz id Other (See Comments) Leg cramps Medications clopidogrel (PLAVIX) 75 mg Oral Tab Take 1 Tab by mouth daily. Active pentoxifylline SR (TRENTAL) 400 mg Oral tablet Take 1 Tab by mouth 3 times daily. Active LORazepam (ATIVAN) 0.5 mg Oral tablet Take 1 Tab by mouth 1 time daily as needed. Active Fish Oil-DHA-EPA (FISH OIL) 1,200-144-216 mg Oral Cap Take 1 Cap by mouth 2 times daily. Active aspirin (BRIAN) 81 mg Oral Tab Take 1 Tab by mouth daily. Active nitroglycerin (NITROSTAT) 0.[address] 0.4 mg under tongue 1 time daily as needed. Active metoprolol succinate ER 24 hour (TOPROL-XL) 50 mg Oral tabletIndications:Co ronary atherosclerosis of habematolel coronary artery,Hyperlipidemi a,Hypertension Take 1 Tab by mouth daily. 90 Tab 4 2 Active lisinopril (PRINIVIL) 40 mg Oral tablet Take 2 Tabs by mouth daily. 2110 180 Tab 4 3 Active cholecalciferol, vitamin D3, 50 mcg (2,000 unit) Tablet, Chewable Take by mouth. 1 Active atorvastatin (LIPITOR) 40 mg tablet Take by mouth. 0 Active melatonin 5 mg Capsule Take by mouth. 0 Active desmopressin (DDAVP) 0.2 mg Tablet Take 0.2 mg by mouth daily at bedtime. 2 Active escitalopram oxalate (LEXAPRO) 5 mg tablet 2 Active carvediloL (COREG) 12.5 mg tablet Take 12.5 mg by mouth 2 times daily with meals. Active Active Problems Patient Care Coordination No te Formatting of this note migh t be different from the original. 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 Problem Noted Date Diagnosed Date Coronary atherosclerosis of habematolel coronary martin ry 11/25/2010 Overview (08/16/2012): 1989 cath: mild-moderate CAD 03/12 stress nuclear 5:31--72% maximum heart rate, no ischemia, EF 59% 11/11 chest nuclear 5:41--80% maximal heart rate, +EKG with rapid resolution, no nuclear ischemia, EF 61% 11/11 cath: <30% coronary plaque, LV 210/15, normal LVEF 03/14 EKG: SR at 76, minimal nonspecific ST abnormality, similar to 11/11 08/14 stress nuclear 5:03--86% maximal heart rate, no ischemia, EF 61% Peripheral vascular disease 11/25/2010 Overview (12/07/2011): ~2005 right LE percutaneous revascularization 06/10 left LE iliac stents 11/11 angio: 50-60/50-60% left subclavian artery, right renal artery okay, 80% in-stent left renal artery -> new stent 11/13 ALEXANDRA: ~1 bilaterally Subclavian artery stenosis, left 11/25/2010 Renal artery stenosis 11/25/2010 Overview (06/14/2011): s/p left renal artery stent twice Carotid artery disease 11/25/2010 Overview (06/14/2011): ~1995 right carotid endarterectomy 03/04 left carotid endarterectomy by Dr. Hang Yadav 06/07 TIA -> carotid duplex: 70+% right ICA 02/11 carotid duplex: 50% bilateral ICA History of TIA in 06/0711/25/2010 Hypertension 11/25/2010 Overview (06/21/2011): 06/15 aldosterone 3 renin 1.03 Hyperlipidemia 11/25/2010 Overview (05/22/2012): Followed and treated by Dr. Ascencio... 05/15 Cholesterol 206 HDL 50 LDL 132 triglyceride 119, normal LFTs/glucose/TSH 11/13 cholesterol 195 HDL 44 LDL 132 triglyceride 137, virtually normal CMP (except alkaline phosphatase 149) 06/15 cholesterol 184 HDL 42 LDL 106 triglyceride 178, normal LFTs 11/12 cholesterol 188 HDL 45 LDL 111 triglyceride 159, normal LFTs 12/11 cholesterol 211 HDL 47 LDL 140 triglyceride 121, normal AST/ALT 07/13 [id number] HDL 43 LDL 100 triglyceride 115, normal AST/ALT 04/05 cholesterol 213 HDL 38 LDL 150 triglyceride 125 COPD (chronic obstructive pulmonary disease) Overview (04/05/2011): 03/[address]: severe rosa emphysema, RLL honeycombing, celiac/SMA /renal artery atherosclerosis, no PE/aortic disease, left hydronephrosis,... Encounters Date Type Department Care Team Description 06/27/2024 9:45 AM MULTIGRAPHER Office Visit [facility] Oncology and Hematology - [place] [address] [place] [address] Quique Palomo MD Malignant neoplasm of lung, unspecified laterality, unspecified part of lung (CMS/HCC) (Primary Dx) 06/27/2024 Orders Only [facility] Oncology and Hematology - Josh Deniz [address] [place] [phone] Quique Palomo MD 06/25/2024 External Device Data STL ABSTRACTION Provider, Abstract 06/25/2024 Telephone [facility] Oncology and Hematology - Josh [address] [place] [phone] Quique Palomo MD Cough 06/24/2024 External Device Data STL ABSTRACTION Provider, Abstract 06/19/2024 Orders Only [facility] Oncology and Hematology - Josh Deniz [address] [place] [phone] Quique Palomo MD 06/18/2024 External Device Data STL ABSTRACTION Provider, Abstract from Last 3 Months Family History Relation Name Status Comments Father Alive [place] at age 45 Sister Alive [place] at age 39 Social History Tobacco Use Types Packs/Day Years Used Date Smoking Tobacco: Every Day Cigarettes 1 50 Smokeless Tobacco: Never Tobacco Cessation:Ready to Q uit: Not Asked; Counseling Given: Not Answered Alcohol Use Standard Drinks/Week Comments No 0 (1 standard drink = 0.6 oz pur e alcohol) Comments Unknown Sex and Gender Information Value Date Recorded Sex Assigned at Not on file Legal Sex Female 5:58 AM MULTIGRAPHER Gender Identity Not on file Sexual Orientation Not on file Last Filed Vital Signs Vital Sign Reading Time Taken Comments Blood Pressure 107/64 06/27/2024 9:53 AM MULTIGRAPHER Pulse 54 06/27/2024 9:53 AM MULTIGRAPHER Temperature 36.3 C (97.3 F) 06/27/2024 9:53 AM MULTIGRAPHER Respiratory Rate 15 06/27/2024 9:53 AM MULTIGRAPHER Oxygen Saturation 91% 06/27/2024 9:53 AM MULTIGRAPHER Inhaled Oxygen Concentration - - Weight 64.1 kg (141 lb 6.4 oz) 06/27/2024 9:53 A M MULTIGRAPHER Height 157.5 cm (5' 2 ) 08/16/2012 9:28 AM CDT Body Mass Index - - Plan of Treatment Upcoming Encounters Date Type Department Care Team (Late st Contact Info) Description 07/17/2024 4:30 PM MULTIGRAPHER Telephone Check Up [facility] Oncology and Hematology - [place] [address] [place] [phone] Quique Palomo MD [address] [employer] [address] [place] [address] Health Maintenance Due Date Last Done Comments DTAP/TDAP/TD VACCINES (1 - Tdap) 1968 COLORECTAL SCREENING 1994 Colorectal Cancer Screening 1994 FIT-DNA Q 3 years 1994 FIT/FOBT Q 1 year 1994 Flex Sig/CT Colonography Q 5 years 1994 RSV VACCINE (60+ or ) (1 - Risk 60-74 years 1-dose series) 2009 ZOSTER VACCINE (2 of 3) 03/28/2013 01/31/2013 INFLUENZA VACCINE (#1) 2024 9, 03/16/2018, 02/17/2017 BREAST CANCER SCREENING 06/26/2024 06/26/19 24, 09/06/2021, 06/17/2020, Additional history exists PNEUMOCOCCAL VACCINE 65+ YEARS Completed 02/17/2017 , 05/23/2015 OSTEOPOROSIS SCREENING Completed 09/06/2021, 2021 Procedures Procedure Name Priority Date/Time Associated Diagnosis Comments COMPREHENSIVE METABOLIC PANEL Routine 06/27/2024 1:13 PM MULTIGRAPHER BASIC METABOLIC PANEL Routine 06/27/2024 1:[address] CHEST W CONTRAST Routine 06/18/2024 1 0:29 AM MULTIGRAPHER from Last 3 Months Results * COMPREHENSIVE METABOLIC PANEL (06/27/2024 1:13 PM MULTIGRAPHER) Blood us Quique Palomo MD CHEMISTRY ORDERABLES Final Resu lt * BASIC METABOLIC PANEL (06/27/2024 1:12 PM MULTIGRAPHER) Blood us Quique Palomo MD CHEMISTRY ORDERABLES Final Resu lt * CT CHEST W CONTRAST (06/18/2024 10:29 AM MULTIGRAPHER) Anatomical Region Laterality Modality Chest Other us Quique Palomo MD CT ORDERABLES Final Result from Last 3 Months Insurance MEDICARE PART A AND B [facility] SUPP MEDICARE PART A AND B [facility] SUPP
--- OUTSIDE RECORDS SUMMARY | 2024-07-10 10:36 | XMS_ITS | Encounter Summary ---
Author Organization [facility] Address [address] [place] [address] Care Team Providers Care Frame Aligner Name Role Phone Rosales Wolfe MD Primary Care Provider [phone] Jana Aguiar PA-C Primary Care Provider [phone] Encounter Details Date Type Department Care Team (Late st Contact Info) Description 01/02/2019 Hospital Follow-up Call [facility] Telemetry Unit B [facility] [place] [address] Mally De La Torre Social History Tobacco Use Types Packs/Day Years Used Date Smoking Tobacco: Every Day Cigarettes 1 30 Smokeless Tobacco: Never Alcohol Use Standard Drinks/Week Comments No 0 (1 standard drink = 0.6 oz pur e alcohol) AUDIT-C Answer Date Recorded Frequency of Alcohol Consumption Never 12/31/2018 Average Number of Drinks Not on file 019 Frequency of Binge Drinking Not on file 12/04 Comments No Sex and Gender Information Value Date Recorded Sex Assigned at Not on file Legal Sex Female 6:08 PM CDT Gender Identity Female 10/13/2021 1:18 PM CDT Sexual Orientation Not on file documented as of this encounter Functional Status * RETIRED Are you deaf or do you have serious difficulty hearing Answer Date of Assessment Author Status No 12/31/2018 5:25 PM CDT Activ e * RETIRED Are you blind or do you have serious difficulty seeing, even when wearing glasses? Answer Date of Assessment Author Status No 12/31/2018 5:25 PM CDT Activ e * Do you have serious difficulty walking or climbing stairs? Answer Date of Assessment Author Status No 12/31/2018 5:25 PM Angela Linares RN A ctive * Do you have difficulty dressing or bathing? Answer Date of Assessment Author Status No 12/31/2018 5:25 PM Angela Linares RN A ctive * Because of a physical, mental, or emotional condition, do you have difficulty doing errands alone such as visiting a doctor's office or shopping? Answer Date of Assessment Author Status No 12/31/2018 5:25 PM Angela Linares RN A ctive documented as of this encounter Mental Status * Because of a physical, mental, or emotional condition, do you have serious difficulty concentrating, remembering, or making decisions? Answer Entry Date Author Status No 12/31/2018 5:25 PM Angela Linares RN A ctive documented in this encounter Plan of Treatment Not on file documented as of this encounter Visit Diagnoses Not on filedocumented in this encounter Care Teams Frame Aligner Relationship Specialty Start Date End Date Rosales Wolfe MD [address] [place] [address] PCP - General INTERNAL MEDICINE 11/12/18 08/25/22 Jana Aguiar PA-C [address] [place], [place] [address] [place] [address] PCP - General PHYSICIAN PRINT SUPPORT SPECIALIST 08/26/22 documented as of this encounter
--- OUTSIDE RECORDS SUMMARY | 2024-07-10 10:36 | XMS_ITS | Continuity of Care Document ---
Author Organization [facility] Address [address] [place] [address] [address] [place] [address] Phone Care Team Providers Care Chief Green Officer Name Role Phone Michelle Ojeda Unavailable Unavailable Advance Directives Directive Yes / No Effective Date File Name No Information Encounters Encounter Description Practice Location Reason(s) For Visit Diagnoses Date Provider Providers Copied on Encounter [facility], [address], [place], [place], [id number], [place] tel:[phone] [facility] No Information [address]. [address] , [address], [place], [address], [place]. tel:[phone] Family History Family Member Type Diagnosis Age At Onset No Information Payers Payer name Insurance type Covered republican ID Authoriza tion(s) [employer] SOI CI [id number] Social History Type Description Quantity Date Captured Comments Sex Female Smoking Status No Information Chief Complaint And Reason For Visit No Information Reason For Referral Reason For Referral No Information History Of Present Illness Encounter Date Complaint History Of Prese nt Illness No Information Functional Status Date Functional Assessmen t No Information Instructions Date Instruction Additional Infor mation No Information Assessments Type Assessment Date No Information Patient Care Teams Name Effective Dates (start - stop) Status Members No Information
--- OUTSIDE RECORDS SUMMARY | 2024-07-10 10:36 | XMS_ITS | Clinical Summary ---
Author Organization [facility] Address [address] [place] [address] Care Team Providers Care Clinical Trial Head Name Role Phone Jana Reyes PA-C Primary Care Provider [phone] Allergies Active Allergy Reactions Criticality Noted Date Comments Hydralazine Hcl Unknown 05/13/2012 Cephalexin Unknown 05/13/2012 Hydrochlorothiazide W-Triamterene Unknown 05/13/2012 Morphine Unknown 12/15/2022 Penicillins Shortness of Breath,Unknown High 05/13/2012 Medications vitamin D2, ergocalciferol, 96726 UNITS capsule Take 1 capsule (50,000 Units total) by mouth once a week. 0 9 Active lisinopril 40 MG tablet 9 Active meclizine 25 MG tablet Take 1 tablet (25 mg total) by mouth 3 (three) times daily as needed. 0 9 Active pantoprazole EC 20 MG tablet 9 Active SSD 1 % cream APPLY TOPICALLY TO THE AFFECTED AREA D 0 9 Active clopidogrel 75 MG tablet Take 1 tablet (75 mg total) by mouth daily. 30 tablet 9 Active ATORVASTATIN 40 MG tablet TAKE 1 TABLET(40 MG) BY MOUTH DAILY 90 tablet 9 Active ALPRAZolam (XANAX) 0.25 MG tablet Take 2 tablets (0.5 mg total) by mouth nightly as needed. 3 Active carvedilol (COREG) 12.5 MG tablet Take 1 tablet (12.5 mg total) by mouth. Active desmopressin (DDAVP) 0.2 MG tablet Take by mouth nightly at bedtime. at bedtime. Active escitalopram (LEXAPRO) 5 MG tablet Take 1 tablet (5 mg total) by mouth daily. 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 (12/31/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 GERD (gastroesophageal reflux disease) 5 Nicotine dependence 08/06/2014 Peripheral vascular disease 10/21/2012 Hypercholesterolemia 05/15/2012 Resolved Problems Problem Noted Date Diagnosed Date Resolved Date Encounter for preventive health examination 12/07/2011 02/13/2020 Immunizations Name Administration Dates Next Due Fluad influenza vaccine, Stephen drivalent (aIIV4), Inactivated, adjuvanted, preservative free, 0.5 mL,IM use 03/16/2018 Fluzone High Dose - >Age 65 (Prefilled Syringe) 03/24/2019,02/17/2017 Influenza (Generic) 04/06/2014,03/19/2012 Influenza Adult (Generic) 03/23/2015,01/31/2013 Pneumococcal (Pneumovax 23) 02/17/2017 Pneumococcal (Prevnar 13) 05/23/2015 Zoster (Zostavax) 43357 Unt/0.65Ml 01/31/2013 Family History Medical History Relation Comments Breast Cancer Neg Hx Social History Tobacco Use Types Packs/Day Years Used Date Smoking Tobacco: Every Day Cigarettes 1 30 Smokeless Tobacco: Never Tobacco Cessation:Ready to Q uit: Not Asked; Counseling Given: Yes Alcohol Use Standard Drinks/Week Comments No 0 (1 standard drink = 0.6 oz pur e alcohol) AUDIT-C Answer Date Recorded Frequency of Alcohol Consumption Never 12/31/2018 Average Number of Drinks Not on file 019 Frequency of Binge Drinking Not on file 12/04 PHQ-2 Answer Date Recorded Patient Health Questionnaire-2 Score 0 12/15/2022 Comments No Sex and Gender Information Value Date Recorded Sex Assigned at Not on file Legal Sex Female 6:08 PM CDT Gender Identity Female 10/13/2021 1:18 PM CDT Sexual Orientation Not on file Last Filed Vital Signs Vital Sign Reading Time Taken Comments Blood Pressure 109/65 12/15/2022 1:27 PM CDT Pulse 67 12/15/2022 1:27 PM CDT Temperature 37.5 C (99.5 F) 12/15/2022 1:27 PM CDT Respiratory Rate 18 12/15/2022 1:27 PM CDT Oxygen Saturation 100% 12/15/2022 1:27 PM CDT Inhaled Oxygen Concentration - - Weight 62.1 kg (137 lb) 12/15/2022 1:27 PM CDT Height 165.1 cm (5' 5 ) 12/15/2022 1:27 PM CDT Body Mass Index 22.8 12/15/2022 1:27 PM CDT Plan of Treatment Health Maintenance Due Date Last Done Comments ASCVD Statin 1950 Colorectal Cancer Screening Colonoscopy (10 Years) 1950 Hepatitis C 12/12/1967 DTaP, Tdap and Td Vaccines (1 - Tdap) 1968 Lung Cancer Screening 12/12/1999 Zoster Vaccines (2 of 3) 03/28/2013 01/31/2013 Annual Medicare Wellness Visit 2014 ASCVD LDL 01/02/2020 01/01/2019, 12/02, 08/19/2013 PHQ-2 (Physician [place]) 12/16/2023 12/15/2022 COVID-19 Vaccine ( - season) 2024 Influenza Adult (#1) 2024 03/24/2019, 03/16/2018, 02/17/2017, Additional history exists PHQ-2 (Physician [place]) 06/04/2024 12/15/2022 RSV Immunization or 60+ Years (1 - 1-dose 75+ series) 2024 Mammogram Screening 06/26/2025 06/26/2023, 09/06/2021, 06/17/2020, Additional history exists Pneumococcal Vaccine: 65+ Years Completed 02/17/2017, 05/23/2015 Dexa Scan (General) Completed 09/06/2021, Meningococcal B Vaccine Aged Out No l onger eligible based on patient's age to complete this topic Meningococcal Vaccine Aged Out No pricilla narda eligible based on patient's age to complete this topic RSV Immunizations Under 20 Months Aged Out No longer eligible based on patient's age to complete this topic Procedures Procedure Name Priority Date/Time Associated Diagnosis Comments MG SCREENING W DESTINEY MARLENE DIGI Routine 06/26/2023 2:08 PM TEST HOLE DRILLER Visit for screening mammogram BONE DENSITY/DEXA Routine 09/06/2021 9:5 1 AM CDT Osteoporosis LIPID PANEL Routine 01/01/2019 6:15 AM CDT from Last 3 Months or Most Recently Relevant to Health Maintenance Results * MG SCREENING W DESTINEY MARLENE DIGI (06/26/2023 2:08 PM TEST HOLE DRILLER) Anatomical Region Laterality Modality Breast Bilateral Mammography 06/26/2023 2:50 PM TEST HOLE DRILLER Narrative 06/26/2023 2:51 PM TEST HOLE DRILLER EXAMINATION: Digital bilateral screening mammogram with 3-D tomosynthesis EXAM DATE/TIME: 06/26/2023 1:29 PM REASON FOR EXAM: scr Screening COMPARISON: Priors including August 2015, June 2020, September 2021. TECHNIQUE: Digital screening mammography of both breasts was performed in addition to 3-D Tomosynthesis technique. This study was read with the assistance of a computer-aided detection system. TISSUE DENSITY: There are scattered areas of fibroglandular density. FINDINGS: No suspicious masses, malignant appearing calcifications, skin thickening or other abnormalities are present. No significant change from the prior exam. =====IMPRESSION:===== No mammographic findings suggestive of malignancy ASSESSMENT: ACR BI-RADS 2 - BENIGN FINDING(S) Recommendation: 1: Routine Screening Bilateral COMMENTS: Ordered By: JANA REYES Interpreted By: Jordan Hoffman MD, 06/26/2023 2:50 PM us Jana Reyes PA-C MAMMO Final Resu lt * BONE DENSITY/DEXA (09/06/2021 9:51 AM CDT) Anatomical Region Laterality Modality Bone Bone Density 09/06/2021 10:1 5 AM CDT Narrative 09/06/2021 10:17 AM CDT IMAGING STUDIES: BONE DENSITY/DEXA DATE: 09/06/2021 9:13 AM CLINICAL HISTORY: Osteoporosis . 70-year-old female with hysterectomy at age 31. No calcium therapy. FINDINGS: LUMBAR SPINE L2-L4: BMD: 0.737 g/sq cm T-SCORE: -3.1 WHO CLASSIFICATION: Moderate osteoporosis FRACTURE RISK: Moderately high LEFT FEMORAL NECK: BMD: 0.471 T-SCORE: -3.4 WHO CLASSIFICATION: Moderate osteoporosis FRACTURE RISK: Moderately high Recommendation. Instigation of aggressive calcium replacement therapy with repeat imaging in one year Ordered By: MISTY ORTIZ Interpreted By: eDnnis Ortiz, 09/06/2021 10:15 AM Procedure Note Nehemias Ortiz MD - 09/06/2021 IMAGING STUDIES: BONE DENSITY/DEXA DATE: 09/06/2021 9:13 AM CLINICAL HISTORY: Osteoporosis . 70-year-old female withhysterectomy at age 31. No calcium therapy. FINDINGS: LUMBAR SPINE L2-L4: BMD: 0.737 g/sq cm T-SCORE: -3.1 WHO CLASSIFICATION: Moderate osteoporosis FRACTURE RISK: Moderately high LEFT FEMORAL NECK: BMD: 0.471 T-SCORE: -3.4 WHO CLASSIFICATION: Moderate osteoporosis FRACTURE RISK: Moderately high Recommendation. Instigation of aggressive calcium replacement therapy withrepeat imaging in one year Ordered By: MISTY ORTIZ Interpreted By: Dennis Ortiz, 09/06/2021 10:15 AM Misty ANN DEXA Final Result * LIPID PANEL (01/01/2019 6:15 AM CDT) CHOLESTEROL 166 <200 MG/DL 01/01/2019 7:42 AM CDT [facility] TRIGLYCERIDES 129 <150 MG/DL 01/01/2019 7:42 AM CDT [facility] HDL 44 >40.0 MG/DL 01/01/2019 7:42 AM CDT [facility] LDL (CALCULATED) 96 <100 MG/DL 01/02/20 19 7:42 AM CDT [facility] NON HDL CHOLESTEROL 122 <130 MG/DL 01/01 7:42 AM T [facility] CHOL/HDL RATIO 3.8 0.0 - 4.5 01/01/2019 7:42 AM T [facility] VLDL CALCULATION 26 5 - 55 MG/DL 01/01/2019 7:42 AM T [facility] LIPID INTERPRETATION 01/01/2019 7:42 AM T [facility] Comment: [facility] CONCENSUS REPORT RECOMMENDATIONS: ADULT CHILD LOW RISK: CHOLESTEROL <200 <170 TRIGLYCERIDE <150 --- HDL >=60 --- LDL <100 <110 BORDERLINE: CHOLESTEROL 200-239 170-199 TRIGLYCERIDE 150-199 --- HDL 40-59 --- LDL 100-159 110-129 HIGH RISK: CHOLESTEROL >=240 >=200 TRIGLYCERIDE >=200 --- HDL <40 --- LDL >=160 >=130 01/01/2019 6:15 AM CDT us Dayna Gold MD LABORATORY Final Result [facility] [address] [place] [address], [place] [phone] from Last 3 Months or Most Recently Relevant to Health Maintenance Insurance MEDICARE Member Subscriber Plan / Payer (Ef fective 2017-Present) Name:Dawn Bocanegra Relation to Subscriber:Self Name:Dawn Bocanegra Payer ID:Not on file Group ID:Not on file Type:Indemnity Address: ATTN CLAIMS [id number] MEDICARE Member Subscriber Plan / Payer (Ef fective 2017-Present) Name:Dawn Bocanegra Relation to Subscriber:Self Name:Dawn Bocanegra Payer ID:Not on file Group ID:Not on file Type:Indemnity Address: ATTN CLAIMS [address] [facility] Advance Directives * Full Code (Latest Code Status on File) Date Activated Date Inactivated Comments 10/14/2021 10:15 AM 10/14/2021 5:50 PM * Full Code Date Activated Date Inactivated Comments 12/31/2018 11:22 PM 01/01/2019 8:48 PM Care Teams Clinical Trial Head Relationship Specialty Start Date End Date Jana Reyes PA-C [address] [place] [address] [address] [place] [address] PCP - General PHYSICIAN DIGITAL PROGRAM MANAGER 08/26/22
--- OUTSIDE RECORDS SUMMARY | 2024-07-10 10:36 | XMS_ITS | CONTINUITY OF CARE DOCUMENT ---
Author Name rubenjoelle rubenjoelle Address Unknown Organization [facility] Address [address] [place] [address] Phone [phone] Care Team Providers Care Underwriting Manager Name Role Phone Pedro CROOKS, Jonathan Unavailable [phone] MARIA VICTORIA CROOKS, ABDOUL Mathew Unavailable Stanislaw ANN, Jana Unavailable PROBLEMS Condition Status Date Provider Notes HTN essential active Jonathan Vasquez MD CCM E nroll LEG OR ARM PAIN active Collette Grubbsmidt Hyperlipidemia active Jonathan Vasquez MD PHYSICAL EXAMINATION completed - Jonathan Vasquez MD TOBACCO ABUSE active Richard Humphrey MD Family History of Hypertension: active ? 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 Jonathan Vasquez MD ENCOUNTERS Date Type Provider Location Encounter Diag nosis - In-person encounter Office Visit Jonathan Vasquez MD [place] Unspecified peripheral vascular diseasePeripheral artery disease - In-person encounter Office Visit Jonathan Vasquez MD [facility] - In-person encounter Office Visit Jonathan Vasquez MD [facility] - In-person encounter Office Visit Jonathan Vasquez MD [facility] - In-person encounter Office Visit Jonathan Vasquez MD [facility] - In-person encounter Office Visit Jonathan Vasquez MD [facility] Lung cancer - In-person encounter Office Visit Jonathan Vasquez MD [facility] Abdominal aortic aneurysmBilateral renal artery stenosis - In-person encounter Office Visit Jonathan Vasquez MD [facility] - In-person encounter Office Visit Jonathan Vasquez MD [facility] - In-person encounter Office Visit Jonathan Vasquez MD [facility] - In-person encounter Office Visit Jonathan Vasquez MD [facility] - In-person encounter Office Visit Jonathan Vasquez MD [facility] - In-person encounter Office Visit Jonathan Vasquez MD [facility] Sinus bradycardia - In-person encounter Office Visit Jonathan Vasquez MD [facility] - In-person encounter Office Visit Jonathan Vasquez MD [facility] - In-person encounter Office Visit Jonathan Vasquez MD [facility] HyperlipidemiaPHYSICAL EXAMINATIONSYNCOPE AND COLLAPSE - In-person encounter Office Visit Jonathan Vasquez MD [facility] - In-person encounter Office Visit Jonathan Vasquez MD [facility] - In-person encounter Office Visit Jonathan [facility] Dizziness - In-person encounter Office Visit Jonathan Vasquez MD [facility] TIA - In-person encounter Office Visit Jonathan Vasquez MD [facility] CAD - In-person encounter Office Visit Jonathan Vasquez MD [facility] Family History of Hypertension:Family History of Hypertension:Carotid artery disease - hx CEAUnspecified peripheral vascular disease - In-person encounter Office Visit Richard Humphrey MD [facility] TOBACCO ABUSE VITAL SIGNS Date Observation Value Provider Body Mass Index (Ratio) 25.15 kg/m2 Yonatan Vasquez MD blood pressure, diastolic 67 mm[Hg] Estefani Bailey blood pressure, systolic 94 mm[Hg] Pat rupertjud Bailey oxygen saturation, oximetry 95 % Sparkle Bailey pulse rate 70 /min Sparkel Bailey respiratory rate E&M 12 /min Sparkle Bailey weight E&M 142 [lb_av] Sparkle Bailey height E&M 63 [in_i] Sparkle Bailey blood pressure, cuff size regular Estefani Bailey Body Mass Index (Ratio) 25.97 kg/m2 Yonatan Vasquez MD blood pressure, cuff size regular Vianca Mckeon blood pressure, diastolic 67 mm[Hg] Viacna Mckeon blood pressure, systolic 99 mm[Hg] Michalea Lorenzanaiz oxygen saturation, oximetry 97 % Jenna Ruiz respiratory rate E&M 20 /min Jenna Ruiz pulse rate 56 /min [facility] weight E&M 146.6 [lb_av] [facility] [in_i] [facility] Body Mass Index (Ratio) 25.86 kg/m2 Yonatan Vasquez MD blood pressure, diastolic 84 mm[Hg] Estefani gil Bailey blood pressure, systolic 190 mm[Hg] Pta lynch Bailey blood pressure, cuff size regular Estefani gil Bailey oxygen saturation, oximetry 90 % pSarkle Bailey respiratory rate E&M 14 /min Sparkle Arcadia pulse rate 61 /min Sparkle [place] weight E&M 146 [lb_av] Sparkle Bailey height E&M 63 [in_i] Sparkle Arcadia Body Mass Index (Ratio) 25.15 kg/m2 Yonatan Vasquez MD blood pressure, diastolic 72 mm[Hg] Li nkLog blood pressure, systolic 110 mm[Hg] Nena kLog blood pressure, cuff size regular Fa [facility] [place] blood pressure, diastolic 72 mm[Hg] Fa ith [place] blood pressure, systolic 110 mm[Hg] Mike [facility] pulse rate 66 /min Christine [place] oxygen saturation, oximetry 90 % Christine [place] respiratory rate E&M 14 /min Christine cordoba weight E&M 142 [lb_av] Christine [place] height E&M 63 [in_i] Christine [place] Body Mass Index (Ratio) 23.73 kg/m2 Yonatan Vasquez MD blood pressure, cuff size regular Ja rret blood pressure, diastolic 80 mm[Hg] Ja rret blood pressure, systolic 120 mm[Hg] Devante armenta pulse rate 67 /min Alfa y oxygen saturation, oximetry 95 % Alfa respiratory rate E&M 12 /min Alfa weight E&M 134 [lb_av] Alfa y height E&M 63 [in_i] Alfa y Body Mass Index (Ratio) 23.03 kg/m2 Yonatan Vasquez MD pulse rate 69 /min Ximena C Tourvil le REEFER ENGINEER oxygen saturation, oximetry 96 % Ximena Santiago REEFER ENGINEER respiratory rate E&M 20 /min Ximena C [place] REEFER ENGINEER blood pressure, diastolic 98 mm[Hg] Ka yla C [place] REEFER ENGINEER blood pressure, systolic 146 mm[Hg] Danelle la Domi [place] REEFER ENGINEER weight E&M 130 [lb_av] Ximena C Tour[place] le REEFER ENGINEER height E&M 63 [in_i] Ximena C Tour[place] le REEFER ENGINEER Body Mass Index (Ratio) 21.11 kg/m2 Yonatan Vasquez MD blood pressure, diastolic -1 mm[Hg] Vianca kayLogdewey blood pressure, systolic 142 mm[Hg] Nena Dyerogdewey blood pressure, diastolic 90 mm[Hg] St darrian Quach blood pressure, systolic 142 mm[Hg] Marlyn Quach oxygen saturation, oximetry 90 % Kassandra Quach pulse rate 62 /min Kassandra Quach weight E&M 119.2 [lb_av] Kassandra Quach respiratory rate E&M 16 /min Kassandra Oliveira mabel height E&M 63 [in_i] Kassandra Main Body Mass Index (Ratio) 20.37 kg/m2 Yonatan Vasquez MD blood pressure, diastolic 82 mm[Hg] Ca therine [place] blood pressure, systolic 175 mm[Hg] Cat herine [place] oxygen saturation, oximetry 98 % Joana [place] pulse rate 61 /min Joana Shakeel respiratory rate E&M 16 /min Catheri ne Shakeel weight E&M 115 [lb_av] Joana [place] blood pressure, cuff size regular Ca therine Shakeel height E&M 63 [in_i] Joana [place] Body Mass Index (Ratio) 23.03 kg/m2 Yonatan Vasquez MD blood pressure, cuff size regular Cy chaya Johansen blood pressure, diastolic 74 mm[Hg] Cy nthia Eleno blood pressure, systolic 130 mm[Hg] Aydee ana Johansen oxygen saturation, oximetry 97 % Deepali Johansen pulse rate 70 /min Deepali Campbel l respiratory rate E&M 16 /min Deepali Johansen weight E&M 130 [lb_av] Deepali Campbel l height E&M 63 [in_i] Deepali Campbel l Body Mass Index (Ratio) 23.91 kg/m2 Yonatan Vasquez MD blood pressure, diastolic 78 mm[Hg] Cy ntlucio Johansen blood pressure, systolic 132 mm[Hg] Aydee thia Eleno blood pressure, cuff size regular Cy chaya Johansen respiratory rate E&M 16 /min Deepali Johansen pulse rate 69 /min Deepali Campbel l oxygen saturation, oximetry 96 % Deepali Johansen weight E&M 135 [lb_av] Deepali Polobel l height E&M 63 [in_i] Deepali Cuellarbel l Body Mass Index (Ratio) 23.03 kg/m2 Yonatan Vasquez MD blood pressure, cuff size regular Cy chaya Johansen blood pressure, diastolic 76 mm[Hg] Cy ntcorinea Johansen blood pressure, systolic 138 mm[Hg] Aydee ana Johansen oxygen saturation, oximetry 98 % Deepali Johansen respiratory rate E&M 16 /min Deepali Johansen pulse rate 78 /min Deepaliana Cuellarbel l weight E&M 130 [lb_av] Deepali Cuellarbel l height E&M 63 [in_i] Deepali Cuellarbel l Body Mass Index (Ratio) 21.79 kg/m2 Yonatan Vasquez MD blood pressure, diastolic 110 mm[Hg] Da alexey Gabriel blood pressure, systolic 190 mm[Hg] Dac ia Gabriel oxygen saturation, oximetry 98 % Stacie Gabriel respiratory rate E&M 18 /min Stacie V oss pulse rate 64 /min Stacie Gabriel weight E&M 123 [lb_av] Stacie Gabriel height E&M 63 [in_i] Stacie Gabriel Body Mass Index (Ratio) 22.85 kg/m2 Yonatan Vasquez MD blood pressure, cuff size small Cy chaya Eleno blood pressure, diastolic 72 mm[Hg] Cy ntcorinea Johansen blood pressure, systolic 140 mm[Hg] Aydee ana Johansen oxygen saturation, oximetry 98 % Deepali Johansen respiratory rate E&M 16 /min Deepali Johansen pulse rate 48 /min Deepaliana Johnson l weight E&M 129 [lb_av] Deepali Johnson l height E&M 63 [in_i] Deepali Johnson l Body Mass Index (Ratio) 24.62 kg/m2 Yonatan Vasquez MD blood pressure, cuff size regular Ke rri Gruenewilnerer blood pressure, diastolic 80 mm[Hg] Ke rri Gruenenfelder blood pressure, systolic 140 mm[Hg] Albaro ri Radhaer oxygen saturation, oximetry 98 % Milady Greg respiratory rate E&M 18 /min Milady Desirae jarquineldamari pulse rate 93 /min Milady Jace lder weight E&M 139 [lb_av] Milady Jace lder height E&M 63 [in_i] Milady Jace lder Body Mass Index (Ratio) 25.26 kg/m2 Yonatan Vasquez MD blood pressure, diastolic 76 mm[Hg] Antonia Horn blood pressure, systolic 207 mm[Hg] Sarah Horn oxygen saturation, oximetry 97 % Carol Horn respiratory rate E&M 18 /min Bandar Horn pulse rate 80 /min Carol munoz weight E&M 142.6 [lb_av] Carol Harsh on height E&M 63 [in_i] Carol Mark nson Body Mass Index (Ratio) 24.44 kg/m2 Yonatan Vasquez MD blood pressure, cuff size regular Kr fermin Zamarripa blood pressure, diastolic 80 mm[Hg] Kr isty [place] blood pressure, systolic 160 mm[Hg] Antony Zamarripa respiratory rate E&M 17 /min Conchisbrennan Zamarripa pulse rate 76 /min Conchis Zamarripa oxygen saturation, oximetry 99 % Conchis Zamarripa weight E&M 138 [lb_av] Conchis Zamarripa height E&M 63 [in_i] Conchis Zamarripa Body Mass Index (Ratio) 24.27 kg/m2 Yonatan Vasquez MD blood pressure, diastolic 74 mm[Hg] Antonia Houseenson blood pressure, systolic 157 mm[Hg] Sarah Horn oxygen saturation, oximetry 94 % Carol Horn respiratory rate E&M 18 /min Bandar Horn pulse rate 62 /min Carol munoz weight E&M 137 [lb_av] Carol Flores paigealyse height E&M 63 [in_i] Carol Flores tammy Body Mass Index (Ratio) 24.80 kg/m2 Yonatan Vasquez MD blood pressure, cuff size regular Ke belkis Garza blood pressure, diastolic 65 mm[Hg] belkis Garza blood pressure, systolic 166 mm[Hg] Albaro Garza oxygen saturation, oximetry 98 % Milady Garza respiratory rate E&M 16 /min Milady goyal pulse rate 64 /min Milady goldstein weight E&M 140 [lb_av] Milady boswell height E&M 63 [in_i] Milady goldstein Body Mass Index (Ratio) 25.15 kg/m2 Yonatan Vasquez MD blood pressure, diastolic 100 mm[Hg] Hans Rodriguez blood pressure, systolic 176 mm[Hg] Kobi Rodriguez respiratory rate E&M 18 /min Elizabeth Rodriguez pulse rate 64 /min Elizabeth Rodriguez oxygen saturation, oximetry 98 % Elizabeth Rodriguez blood pressure, cuff size regular jacob Rodriguez weight E&M 142 [lb_av] Elizabeth Rodriguez height E&M 63 [in_i] Elizabeth Rodriguez blood pressure, diastolic 80 mm[Hg] Antonia Horn blood pressure, systolic 162 mm[Hg] Sarah Marcia Horn pulse rate 69 /min CarolShanna gibsonon oxygen saturation, oximetry 97 % Carol Horn respiratory rate E&M 16 /min Bandar Horn Body Mass Index (Ratio) 26.29 kg/m2 Marligigi Horn weight E&M 148.4 [lb_av] Carol peoples blood pressure, diastolic 80 mm[Hg] Antonia Horn blood pressure, systolic 191 mm[Hg] Sarah Marcia Horn pulse rate 67 /min CarolShanna munoz oxygen saturation, oximetry 98 % Carol Horn respiratory rate E&M 16 /min Bandar Horn Body Mass Index (Ratio) 26.71 kg/m2 MarliShanna Horn weight E&M 150.8 [lb_av] Carol peoples blood pressure, diastolic 82 mm[Hg] Antonia Horn blood pressure, systolic 195 mm[Hg] Sarah Marcia Horn Body Mass Index (Ratio) 26.43 kg/m2 MarliShanna Horn pulse rate 81 /min Carol gibsonon oxygen saturation, oximetry 99 % Carol Horn respiratory rate E&M 16 /min Bandar Horn weight E&M 149.2 [lb_av] Carol House ensalyse height E&M 63 [in_i] Carol munoz blood pressure, diastolic 82 mm[Hg] Marylou Robbins blood pressure, systolic 134 mm[Hg] Kamran Carloskermann respiratory rate E&M 16 /min Evelyn lopez pulse rate 75 /min Evelyn Robbins oxygen saturation, oximetry 98 % Evelyn Robbins weight E&M 152 [lb_av] Evelyn CarlosItzel RESULTS Date Observation Value Provider Reference Range Interpretation Location coagulation managed by Briana Rees RN international normalized ratio (INR) 1.1 Briana Rees RN Normal lipoprotein, beta, serum, point, quantitative, calculated 95 mg/dL [facility] 0-99 very low density lipoproteins 26 mg/dL [facility] 5-40 HDL cholesterol, serum 69 mg/dL [facility] >39 triglyceride, serum, random 132 mg/dL [facility] 0-149 cholesterol, serum 190 mg/dL [facility] 245-250 4093/01/ 05 calcium, serum 10.4 mg/dL [facility] 8.7-10.3 High carbon dioxide, venous blood 27 mmol/L [facility] 20-29 chloride, serum 100 mmol/L [facility] 96-106 potassium, serum 6.1 mmol/L [facility] 3.5-5.2 High sodium, serum 141 mmol/L [facility] 841-908 9922/01/ 05 urea nitrogen/creatini ne ratio, serum 14 [facility] 12-28 eGFR if 62 mL/min/{1.73 _m2} [facility] >59 eGFR if not 54 mL/min/{1.73 _m2} [facility] >59 Low creatinine, serum 1.06 mg/dL [facility] 0.57-1.00 High urea nitrogen, blood 15 mg/dL [facility] 8-27 blood glucose, random 104 mg/dL [facility] 65-99 High prothrombin time (patient) 11.2 s [facility] 9.1-12.0 international normalized ratio (INR) 1.1 [facility] 0.8-1.2 basophil count, absolute 0.0 x10E3/uL [facility] 0.0-0.2 Eosinophil Absolute Count 0.2 X10E3/UL [facility] 0.0-0.4 monocyte count, blood, automated 0.9 X10E3/UL [facility] 0.1-0.9 lymphocyte count, blood, automated 5.1 X10E3/UL [facility] 0.7-3.1 High Absolute Neutrophils 11.6 X10E3/UL [facility] 1.4-7.0 High basophils as percent of blood leukocytes 0 % [facility] Not Estab. eosinophils as percent of blood leukocytes 1 % [facility] Not Estab. monocytes as percent of blood leukocytes 5 % [facility] Not Estab. lymphocytes as percent of blood leukocytes 29 % [facility] Not Estab. neutrophils as percent of blood leukocytes 65 % [facility] Not Estab. platelet count 329 X10E3/UL [facility] 118-250 3127/01/ 05 red blood cell distribution width 13.6 % [facility] 12.3-15.4 mean corpuscular hemoglobin concentration, RBC 32.4 G/DL [facility] 31.5-35.7 mean corpuscular hemoglobin, RBC 30.1 pg [facility] 26.6-33.0 mean corpuscular volume, RBC 93 fL [facility] 79-97 hematocrit, blood 48.1 % [facility] 34.0-46.6 High hemoglobin, blood 15.6 g/dL [facility] 11.1-15.9 erythrocyte (RBC) count 5.18 X10E6/UL [facility] 3.77-5.28 leukocyte count, blood 17.9 X10E3/UL [facility] 3.4-10.8 High very low density lipoproteins 24.4 mg/dL [facility] 5.0 - 40.0 LDL/HDL (low-density lipoprotein/high- density lipoprotein) ratio 1.6 RATIO [facility] - lipoprotein, beta, serum, point, quantitative, calculated 115.6 (?) [facility] 0.0 - 100.0 High HDL cholesterol, serum 73.0 mg/dL [facility] 45.0 - 65.0 High cholesterol, serum 213.0 mg/dL [facility] 0.0 - 200.0 High triglyceride, serum, fasting 122.0 mg/dL [facility] 0.0 - 150.0 urea nitrogen/creatini ne ratio, serum 12.2 [facility] - Estimated Glomerular Filtration Rate (calc) 66.6 (?) [facility] 59.0 - chloride, serum 100.8 mmol/L [facility] 98.0 - 107.0 potassium, serum 4.9 mmol/L [facility] 3.5 - 5.1 sodium, serum [facility].0 [facility] 145.[facility] creatinine, serum 0.9 mg/dL [facility] 0.5 - 1.0 carbon dioxide, venous blood 26.0 mmol/L [facility] 23[facility] - 31.0 calcium, serum 10.3 mg/dL [facility] 8.6 - 10.2 High urea nitrogen, blood 11.0 mg/dL [facility] 8.0 - 23.0 blood glucose, random 95.0 mg/dL [facility] 74.0 - 99.0 red blood cell distribution width, size density 49.1 fL [facility] - immature granulocytes, percentage of total cells, blood 0.3 % [facility] - nucleated red blood cells as percent of blood leukocytes 0.0 % [facility] - red blood cell (erythrocyte) count, per high power field 0.0 10*3/UL [facility] eosinophils as percent of blood leukocytes 2.0 % [facility] - neutrophils as percent of blood leukocytes 56.7 % [facility] - Absolute Neutrophils 6.7 CELLS/UL [facility] 1.5 - 7.8 basophils as percent of blood leukocytes 0.7 % [facility] - Absolute Basophils 0.1 CELLS/UL [facility] 0.0 - 0.2 monocytes as percent of blood leukocytes 6.3 % [facility] - Absolute Monocytes 0.7 CELLS/UL [facility] 0.2 - 1.0 lymphocytes as percent of blood leukocytes 34.0 % [facility] Lymphocytes 4.0 CELLS/UL [facility] 0.9 - 3.9 High mean platelet volume 10.0 (?) [facility] - platelet count 280.0 THOUSAND/UL [facility] 100.0 - 400.0 mean corpuscular hemoglobin concentration, RBC 31.8 G/DL [facility] 31.0 - 38.0 mean corpuscular hemoglobin, RBC 31.0 pg [facility] 25.0 - 35.0 mean corpuscular volume, RBC 97.5 fL [facility] 75.0 - 100.0 hematocrit, blood 51.3 % [facility] 35.0 - 55.0 hemoglobin, blood 16.3 g/dL [facility] 11.5 - 16.5 erythrocyte count, whole blood 5.3 MILLION/UL [facility] 3.5 - 5.5 prothrombin time (patient) 10.6 s [facility] 9.0 - 11.5 international normalized ratio (INR) 1.0 [facility] 0.9 - 1.1 HISTORY OF MEDICATION USE Medication Status Instructions Dates Provider Indications Com ments escitalopram oxalate 10 mg tablet active Take 1 tablet by mouth once a day Jenna Mcekon pantoprazole 20 mg tablet,delayed release (DR/EC) active TAKE 1 TABLET BY MOUTH EVERY DAY NEEDED Jenna Mckeon nifedipine 30 mg tablet extended release 24hr completed TAKE 1 TABLET BY MOUTH DAILY - Jenna Mckeon alprazolam 0.25 mg tablet completed - Mackenzie Overtongltrung [facility] desmopressin 0.2 mg tablet active once a day Mackenziegilberto Overtongltrung [facility] carvedilol 12.5 mg tablet active 1/2 tablet twice a day Mackenzie Overtontrung [facility] escitalopram oxalate 5 mg tablet completed once a day - Jenna Mckeon cholecalciferol (vitamin D3) 50 mcg (2,000 unit) tablet,chewable active Take 1 tablet by mouth once a day Deepali Johansen melatonin 5 mg capsule active Take 1 tablet by mouth every night as needed Deepali Johansen MECLIZINE HCL 25 MG ORAL TABLET completed take 1 tab daily as needed - Deepali Johansen VITAMIN D (CHOLECALCIFEROL) CAPSULE completed Take 1 cap once a week - Deepali Johansen ROSUVASTATIN CALCIUM 5 MG ORAL TABLET completed take 1 tab daily - Jonathan Vasquez MD CLONAZEPAM 0.5 MG ORAL TABLET completed take 1 tab daily - Deepali Johansen atorvastatin 40 mg tablet active Take 1 tablet by mouth once a day Lavonsmorris Atkins BENZONATATE 100 MG ORAL CAPSULE completed Take 2 caps by mouth twice daily - Deepali Johansen PREDNISONE 10 MG ORAL TABLET completed TAke as directed - Stacie Rios AMLODIPINE BESYLATE 5 MG ORAL TABLET completed Take 1 tablet daily - Deepali Johnasen LEVOFLOXACIN 500 MG ORAL TABLET completed Take 1 tablet daily - Deepali Johansen PRAMIPEXOLE DIHYDROCHLORIDE 0.25 MG ORAL TABLET completed take one tablet by mouth once at night - Deepali Johansen ASPIRIN ADULT LOW DOSE 81 MG ORAL TABLET DELAYED RELEASE completed One Tab By Mouth Daily - Deepali Johansen PANTOPRAZOLE SODIUM 20 MG ORAL TABLET DELAYED RELEASE completed 1 tab daily - Deepali Johansen clopidogrel 75 mg tablet active 1 tablet once a day Jonathan Vasquez MD SERTRALINE HCL 25 MG ORAL TABLET completed once daily - Elizabeth Rodriguez OMEPRAZOLE 40 MG ORAL CAPSULE DELAYED RELEASE completed once daily - Elizabeth Rodriguez ASPIRIN 81 MG ORAL TABLET completed ONE TAB DAILY - Elizabethzoltan Rodriguez COREG 12.5 MG ORAL TABLET completed 1/2 tab bid - Deepali Johansen lisinopril 40 mg tablet active 1 tablet by mouth once a day Jonathan Vasquez MD FISH OIL 1000 MG ORAL CAPSULE completed 1 daily - Carol Horn LIPITOR 20 MG ORAL TABLET completed ONE TAB. DAILY - Carol Horn EXFORGE 5-160 MG ORAL TABLET completed ONE TAB. DAILY - Carol Horn LORAZEPAM TABLET completed 1 tablet daily - Carol Horn ALTACE 10 MG ORAL CAPSULE completed ONE TAB. DAILY - Evelyn Robbins ASPIRIN 81 MG ORAL TABLET completed ONE TAB. DAILY - Evelyn Robbins PLAVIX 75 MG ORAL TABLET completed ONE TAB. DAILY - Carol Horn PREVACID 30 MG ORAL CAPSULE DELAYED RELEASE completed ONE TAB. DAILY - Evelyn Robbins TOPROL XL 100 MG ORAL TABLET EXTENDED RELEASE 24 HOUR completed ONE TAB TWICE DAILY - Evelyn Robbins SOCIAL HISTORY Date Observation Value Provider personal history of marijuana use no Mackenzie Ventimiglia [facility] drug use no Mackenzie Ventimig lali [facility] alcohol use no Mackenzie Ventimig lali [facility] passive cigarette sm breezy exposure no Mackenzie Ventimiglia [facility] smoking/tobacco cess ation, patient education and counseling yes Mackenzie Ventimiglia [facility] number of years as a smoker 39 a Mackenzie Ventimiglia [facility] smoking history, tot al pack/year 40 Mackenzie Ventimiglia [facility] smoking history, tot al pack/day 2 Mackenzie Ventimiglia [facility] cigarette use yes Mackenzie Ventimi glia [facility] smoking status Current every day smoker A shelly Ventimiglia [facility] personal history of marijuana use no Jenna Ruiz drug use no Jenna Ruiz alcohol use no [facility] passive cigarette sm breezy exposure no [facility] smoking/tobacco cess ation, patient education and counseling yes [facility] number of years as a smoker 39 a [facility] smoking history, tot al pack/year 40 [facility] smoking history, tot al pack/day 2 [facility] cigarette use yes [facility] smoking status Current every [facility] personal history of marijuana use no Mackenzie Ventimiglia [facility] drug use no Mackenzie Ventimig lali [facility] alcohol use no Mackenzie Ventimig lali [facility] passive cigarette sm breezy exposure no Mackenzie Ventimiglia [facility] smoking/tobacco cess ation, patient education and counseling yes Mackenzie Ventimiglia [facility] number of years as a smoker 39 a Mackenzie Ventimiglia [facility] smoking history, tot al pack/year 40 Mackenzie Ventimiglia [facility] smoking history, tot al pack/day 1 Mackenzie Ventimiglia [facility] cigarette use yes Mackenzie Ventimi glia [facility] smoking status Current every day smoker A shelly Ventimiglia [facility] personal history of marijuana use no Mackenzie Ventimiglia [facility] drug use no Mackenzie Ventimig lali [facility] alcohol use no Mackenzie Ventimig lali [facility] passive cigarette sm breezy exposure no Mackenzie 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 smoking/tobacco cess ation, patient education and counseling yes Mackenzie Ventimiglia [facility] number of years as a smoker 40 a Mackenzie Ventimiglia [facility] smoking history, tot al pack/year 40 Mackenzie Ventimiglia [facility] [facility] smoking history, tot al pack/day 1 Mackenzie Ventimiglia [facility] cigarette use yes Mackenzie Ventimi glia [facility] smoking status Current every day smoker A shellyjuancarlos Smithmiglia [facility] social history reviewed E&M revi ewed - no changes required Jonathan Vasquez MD social history reviewed E&M revi ewed - no changes required Ximena Santiago NP smoking status Current every day smoker K deepak Santiago NP drug use no Mackenzie Ventimig lali [facility] alcohol use no Mackenzie Ventimig lali [facility] physical exercise, frequency, days per week yes Kassandra Quach caffeine use, averag e drinks per day no Kassandra Quach passive cigarette sm breezy exposure no Kassandra Quach smoking/tobacco cess ation, patient education and counseling yes Kassandra Quahc number of years as a smoker 40 a Kassandra Quach smoking history, tot al pack/year 40 Kassandra Quach smoking history, tot al pack/day 1 Kassandra Quach cigarette use yes Kassandra Quach smoking status Current every day smoker S rich Quach social history E&M Marital Statu s: Domi fletcheren: 2 O ccupation: Retired Smoking History: P atjohn currently smokes every day. P atient has been counseled to quit. Jonathan Vasquez MD social history reviewed E&M revi ewed - no changes required Jonathan Vasquez MD physical exercise, frequency, days per week yes Joana Shakeel caffeine use, averag e drinks per day no Joana Shakeel passive cigarette sm breezy exposure no Joana [place] smoking/tobacco cess ation, patient education and counseling yes Joana [place] number of years as a smoker 40 a Joana Shakeel smoking history, tot al pack/year 40 Joana [place] smoking history, tot al pack/day 1 Joana [place] cigarette use yes Joana Shakeel smoking status Current every day smoker C jamilahine Shakeel social history E&M Marital Statu s: C alekseydren: 2 O ccupation: Retired Smoking History: P atient currently smokes every day. P atient has been counseled to quit. Jonathan Vasquez MD social history reviewed E&M revi ewed - no changes required Jonathan Vasquez MD physical exercise, frequency, days per week yes eDepali Johansen caffeine use, averag e drinks per day no Deepali Johansen passive cigarette sm breezy exposure no Deepali Johansen smoking/tobacco cess ation, patient education and counseling yes Deepali Johansen number of years as a smoker 40 a Deepali Johansen smoking history, tot al pack/year 40 Deepali Johansen smoking history, tot al pack/day 1 Deepali Johansen cigarette use yes Deepali gardner smoking status Current every day smoker Domi pereirajuancarlos Eleno social history E&M Marital Statu s: C chanceen: 2 O ccupation: Retired Smoking History: P atient currently smokes every day. P atient has been counseled to quit. Jonathan Vasquez MD social history reviewed E&M revi ewed - no changes required Jonathan Vasquez MD physical exercise, frequency, days per week yes Deepali Eleno caffeine use, averag e drinks per day no Deepali Johansen passive cigarette sm breezy exposure no Deepali Johansen smoking/tobacco cess ation, patient education and counseling yes Deepali Johansen number of years as a smoker 40 a Deepali Johansen smoking history, tot al pack/year 40 Deepali Eleno smoking history, tot al pack/day 1 Deepali Eleno cigarette use yes Deepali gardner smoking status Current every day smoker Domi foster Johansen social history E&M Marital Statu s: Domi ryderen: 2 O ccupation: Retired Smoking History: P atient currently smokes every day. P atient has been counseled to quit. Jonathan Vasquez MD social history reviewed E&M revi ewed - no changes required Jonathan Vasquez MD physical exercise, frequency, days per week yes Deepali Johansen caffeine use, averag e drinks per day no Deepali Johansen passive cigarette sm breezy exposure no Deepali Johansen smoking/tobacco cess ation, patient education and counseling yes Deepali Johansen number of years as a smoker 40 a Deepali Johansen smoking history, tot al pack/year 40 Deepali Eleno smoking history, tot al pack/day 1 Deepali Eleno cigarette use yes Deepali gardner smoking status Current every day smoker Domi aminsofilucio Johansen social history E&M Marital Statu s: C delvin: 2 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 P atient has been counseled to quit. Jonathan Vasquez MD social history reviewed E&M revi ewed - no changes required Jonathan Vasquez MD physical exercise, frequency, days per week yes [facility] alcohol use, average drinks per day none [facility] alcohol use no [facility] caffeine use, averag e drinks per day no [facility] smoking/tobacco cess ation, patient education and counseling yes [facility] passive cigarette sm breezy exposure no [facility] number of years as a smoker 40 a [facility] smoking history, tot al pack/year 40 [facility] smoking history, tot al pack/day 1 [facility] cigarette use yes [facility] smoking status Current every day smoker D trung [place] social history E&M Marital Statu s: Domi hilen: 2 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 P atient has been counseled to quit. Jonathan Vasquez MD social history reviewed E&M revi ewed - no changes required Jonathan Vasquez MD physical exercise, frequency, days per week yes Deepali Johansen alcohol use, average drinks per day none Deepali Jhoansen alcohol use no Deepali matehw caffeine use, averag e drinks per day no Deepali Johansen smoking/tobacco cess ation, patient education and counseling yes Deepali Johansen passive cigarette sm breezy exposure no Deepali Johansen number of years as a smoker 40 a Deepali Johansen smoking history, tot al pack/year 40 Deepali Johansen smoking history, tot al pack/day 1 Deepali Johansen cigarette use yes Deepali gardner smoking status Current every day smoker Domi Johansen social history E&M Marital Statu s: Domi hargrove: 2 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 P atient has been counseled to quit. Jonathan Vasquez MD social history reviewed E&M revi ewed - no changes required Jonathan Vasquez MD physical exercise, frequency, days per week yes Milady Garza alcohol use, average drinks per day none Milady Garza alcohol use no Milady Mccormick elberter caffeine use, averag e drinks per day no Milady Garza smoking/tobacco cess ation, patient education and counseling yes Milady Garza passive cigarette sm breezy exposure no Milady Garza number of years as a smoker 40 a Milady Garza smoking history, tot al pack/year 40 Milady Garza smoking history, tot al pack/day 1 Milady Garza cigarette use yes Milady Morgan [facility] smoking status Current every day smoker K chad Garza social history E&M Marital Statu s: Domi hargrove: 2 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 Wilfredo parra has been counseled to quit. Jonathan Vasquez MD social history reviewed E&M i ewed - no changes required Jonathan Vasquez MD physical exercise, frequency, days per week yes Carol Horn alcohol use, average drinks per day none Carol Horn alcohol use no Carol munoz caffeine use, averag e drinks per day no Carol Horn smoking/tobacco cess ation, patient education and counseling yes Carol Horn passive cigarette sm breezy exposure no Carol Horn number of years as a smoker 40 a Carol Horn smoking history, tot al pack/year 40 Carol Horn smoking history, tot al pack/day 1 Carol Horn cigarette use yes Carol peoples smoking status Current every day smoker Mimi Horn social history reviewed E&M revi ewed - no changes required Jonathan Vasquez MD social history E&M Marital Statu s: Domi hargrove: 2 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 Wilfredo parra has been counseled to quit. Jonathan Vasquez MD social history reviewed E&M revi ewed - no changes required Jonathan Vasquez MD physical exercise, frequency, days per week yes Carol Horn alcohol use, average drinks per day none Carol Horn alcohol use no Carol Flores tammy caffeine use, averag e drinks per day no Carol Horn smoking/tobacco cess ation, patient education and counseling yes Carollillian Horn passive cigarette sm breezy exposure no Carol Horn number of years as a smoker 40 a Carol Kory smoking history, tot al pack/year 40 Carol Horn smoking history, tot al pack/day 1 Carol Horn cigarette use yes Carol connoralyse smoking status Current every day smoker Mimi Evans Horn social history reviewed E&M revi ewed - no changes required Jonathan Vasquez MD physical exercise, frequency, days per week yes Milady Garza alcohol use, average drinks per day none Milady Garza alcohol use no Milady goldstein caffeine use, averag e drinks per day no Milady Garza smoking/tobacco cess ation, patient education and counseling yes Milady Garza passive cigarette sm breezy exposure no Milady Garza number of years as a smoker 40 a Milady Garza smoking history, tot al pack/year 40 Milady Garza smoking history, tot al pack/day 1 Milady Garza cigarette use yes Milady vega smoking status Current every day smoker Helen Morganeddieamari social history E&M Marital Statu s: Domi hargrove: 2 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 Jonathan Vasquez MD social history reviewed E&M revi ewed - no changes required Jonathan Vasquez MD social history reviewed E&M revi ewed - no changes required Jonathan Vasquez MD physical exercise, frequency, days per week yes Carol Horn alcohol use, average drinks per day none Carol Horn alcohol use no Carol munoz caffeine use, averag e drinks per day no Carol Horn smoking/tobacco cess ation, patient education and counseling yes Carol Horn passive cigarette sm breezy exposure no Carol Horn number of years as a smoker 40 a Carol Horn smoking history, tot al pack/year 40 Carol Horn smoking history, tot al pack/day 1 Carol Horn cigarette use yes Carol peoples smoking status Current every day smoker Mimi Cristina Horn social history reviewed E&M revi ewed - no changes required Jonathan Vasquez MD physical exercise, frequency, days per week yes Carol Horn alcohol use, average drinks per day none Carol Horn alcohol use no Carol gibsonon caffeine use, averag e drinks per day no Carol Horn smoking/tobacco cess ation, patient education and counseling yes Carol Horn passive cigarette sm breezy exposure no Carol Horn number of years as a smoker 40 a CarolShanna Horn smoking history, tot al pack/year 40 Carol Horn smoking history, tot al pack/day 1 Carol Horn cigarette use yes Carol peoples smoking status Current every day smoker M Cristina Horn smoking/tobacco cess ation, patient education and counseling yes Jonathan Vasquez MD passive cigarette sm breezy exposure no Jonathan Vasquez MD alcohol use no Jonathan Oliveira social history E&M Marital Statu s: Domi hargrove: 2 O ccupation: retired Jonathan Vasquez MD social history reviewed E&M revi ewed - no changes required Jonathan Vasquez MD smoking status Current every day smoker M Cristina Horn number of years as a smoker 40 a Carol Horn smoking history, tot al pack/day 1 Carol Horn physical exercise, frequency, days per week yes Carol Horn alcohol use, average drinks per day none Carol Horn caffeine use, averag e drinks per day no Carol Horn cigarette use yes Carol peoples smoking history, tot al pack/year 40 Richard Humphrey MD cigarette use 20 Richard Oliveira social history reviewed E&M reviewed Richard Humphrey MD physical exercise, frequency, days per week yes [employer] caffeine use, averag e drinks per day no [employer] alcohol use, average drinks per day none [employer] number of years as a smoker 10 years or m ore [employer] smoking status Smoker [employer] MENTAL STATUS Date Observation Value Provider assessment of judgme nt and insight E&M Alert and oriented to time, place and person. Mood and affect are normal. Richard Humphrey MD FAMILY HISTORY Family Member Condition Full Sister Family History of Co ronary Artery Disease: Full Sister Family History of Hy pertension: Father Family History of Co ronary Artery Disease: Father Family History of Hy pertension: INSURANCE PROVIDERS Payer name Policy type / Coverage type Thiells red libertarian ID [facility] [id number] [place] [employer] Medicare [id number] [facility] [id number] [employer] [facility] Other [id number] ADVANCE DIRECTIVES Name Date DISCUSSED - NO DECISION MADE TREATMENT PLAN Date Name Performer [id number],Jonathan Villanueva MD [id number],Jonathan Villanueva MD [id number],Jonathan Villanueva MD [id number],Jonathan Villanueva MD [id number],C, C urrent 1 ppd e ncouraged cessation Ximena Santiago NP [id number],C, E levated in office today, per patient has been running high this morning 190/100 r pm reviewed and uptrending r echeck renal artery duplex Her updated medication list for this problem includes: Carvedilol 12.5 Mg Tablet (Carvedilol) Lisinopril 40 Mg Tablet (Lisinopril) ..... 1 tablet by mouth once a day Ximena Santiago NP [id number],C, r ica with chronic occlusion l eft ica 50-79% r epeat in 2022 Ximena Santiago NP [id number],C, H er updated medication list for this problem includes: Atorvastatin 40 Mg Tablet (Atorvastatin) ..... Take 1 tablet by mouth once a day Ximena Santiago NP [id number],C, N oted on recent vascular study 10/[address] Thomas. Will monitor and follow. continue statin therapy r epeat in 2022 Ximena Santiago REEFER ENGINEER [id number],C, p atient had stent per Dr. Thomas to left renal artery 10/2021. Remains on asa and plavix. r epeat in 2022 Ximena Santiago REEFER ENGINEER [id number],C,p atient had stent per Dr. Thomas to lt renal artery 10/2021. Remains on asa and plavix. [facility] [id number],C,N oted on recent vascular study 10/[address] Thomas. Will monitor and follow. continue statin therapy [facility] [id number],C,r emains on statin therapy H er updated medication list for this problem includes: Atorvastatin 40 Mg Tablet (Atorvastatin) ..... Take 1 tablet by mouth once a day [facility] [id number],S,E levated today states has been well controlled at home. Will continue present regimen and monitor. H er updated medication list for this problem includes: Carvedilol 12.5 Mg Tablet (Carvedilol) Lisinopril 40 Mg Tablet (Lisinopril) ..... 1 tablet by mouth once a day [facility] [id number],SJonathan MD [id number],SJonathan MD [id number],SJonathan MD [id number],SJonathan MD [id number],SJonathan MD [id number],SJonathan MD [id number],S, Jonathan snyder MD [id number],S Jonathan snyder MD [id number],S Jonathan snyder MD [id number],S Jonathan snyder MD [id number],S Jonathan snyder MD [id number],S Jonathan snyder MD Take your medication s every day as directed. Failing to take your medication properly can have a negative impact on your treatment. Please monitor your blood pressure and heart rate regularly, at least weekly. Sit quietly for 5 minutes before taking your blood pressure and heart rate. Recommend a healthy diet plan which would include lots of vegetables and fruits, poultry and fish, low fat dairy products. It would include lower quantities of carbohydrates, like breads, potatoes, rice and pasta. Only small amounts of sweets should be included. Recommend a low salt, or no added salt diet. Exercise of at least 3 times a week is recommended. Even small amounts of exercise regularly can be less intimidating but still beneficial. Please contact us if you have new Chest Pain, Shortness of Breath, Palpitations, Dizziness, or Edema. Lisa Mohan Cardiology:4cm in diameter Ayush Rivera [facility] Cardiology:100% MALLORIE < 50% on LICA on CTA Mackenziegilberto Rivera [facility] Cardiology:cessation encouraged [place] Nicole [facility] Cardiology:BP 94/67 today this is low, but patient asymptomatic and reports higher at home C ontinue present meds H er updated medication list for this problem includes: Carvedilol 12.5 Mg Tablet (Carvedilol) ..... 1/2 tablet twice a day Lisinopril 40 Mg Tablet (Lisinopril) ..... 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 Patent right common iliac artery stent. Severe peripheral arterial disease of the right superficial femoral artery but with good reconstitution via collaterals and excellent distal runoff to the right foot. She continues to have pain in RLE with ambulation R emains on asa, plavix an statin G iven her continued pain in RLE will plan for intervention of rt SFA will need retrograde approach based on aneurysm and previous stent location patient wishes to think on further intervention. Will have her f/u in a couple in July. H er updated medication list for this problem includes: Clopidogrel 75 Mg Tablet (Clopidogrel) ..... 1 tablet once a day Mackenziegilberto Rivera [facility] Cardiology: R enal Duplex 03/21/2024 IMPRESSION: 1 . Abnormal study demonstrating findings consistent with hemodynamically significant proximal renal artery stenosis bilaterally left worse than right. Correlation with contrast-enhanced CTA abdominal aorta/renal arteries c ould be considered for further evaluation. 2 . Incidental abdominal aortic aneurysm with maximum transverse diameter of 3.1 cm. Molly Pickardmartin FREEDMAN Cardiology: w ith history of angioplasty Renal Duplex 03/21/2024 IMPRESSION: 1 . Abnormal study demonstrating findings consistent with hemodynamically significant proximal renal artery stenosis bilaterally left worse than right. Correlation with contrast-enhanced CTA abdominal aorta/renal arteries c ould be considered for further evaluation. 2 . Incidental abdominal aortic aneurysm with maximum transverse diameter of 3.1 cm. Will plan for renal angiogram Molly Pickardmartin FREEDMAN Cardiology: S he has known JAIME and subclavian stenosis P resents with continued claudication symptoms R >L KIT 03/21/24 A bnormal study demonstrating findings of significant lower extremity arterial occlusive disease right worse t pike left. W ill plan for diagnostic AIF Molly Pickardmartin FREEDMAN Cardiology: B P today: 99/67 P rior BP: 190/84 (03/11/2024) The following medications were removed from the medication list: Nifedipine 30 Mg Tablet Extended Release 24hr (Nifedipine) ..... Take 1 tablet by mouth daily Her updated medication list for this problem includes: Carvedilol 12.5 Mg Tablet (Carvedilol) ..... 1/2 tablet twice a day Lisinopril 40 Mg Tablet (Lisinopril) ..... 1 tablet by mouth once a day Molly Haley NP Cardiology: T OTAL 105, HDL 44, TRI 87, LDL 44 H er updated medication list for this problem includes: Atorvastatin 40 Mg Tablet (Atorvastatin) ..... Take 1 tablet by mouth once a day Molly Haley NP Cardiology:cessation encouraged [facility] Cardiology:with hist ory of angioplasty g iven elevated BP will do f/u duplex [facility] Cardiology:will upda te lipid panel H er updated medication list for this problem includes: Atorvastatin 40 Mg Tablet (Atorvastatin) ..... Take 1 tablet by mouth once a day [facility] Cardiology:She has k nown JAIME and subclavian stenosis P resents with claudication symptoms R >L W ill do KIT [facility] Cardiology:BP uncont rolled in office today P atient reports compliance with meds C annot increase BB d/t bradycardia W ill add nifedipine W ill return in 2 mos H er updated medication list for this problem includes: Nifedipine 30 Mg Tablet Extended Release 24hr (Nifedipine) ..... Take 1 tablet by mouth daily Carvedilol 12.5 Mg Tablet (Carvedilol) ..... 1/2 tablet twice a day Lisinopril 40 Mg Tablet (Lisinopril) ..... 1 tablet by mouth once a day [facility] Cardiology:cessation encouraged [facility] Cardiology: H er updated medication list for this problem includes: Atorvastatin 40 Mg Tablet (Atorvastatin) ..... Take 1 tablet by mouth once a day [facility] Cardiology:controlle d. no orthostatic changes noted on exam H er updated medication list for this problem includes: Carvedilol 12.5 Mg Tablet (Carvedilol) Lisinopril 40 Mg Tablet (Lisinopril) ..... 1 tablet by mouth once a day Mackenziegilberto Overtonlanatrung [facility] Cardiology:Known car otid stenosis with carotid CEA G ninfa her being off balance and falls will update carotid duplex [place] Nicole [facility] Cardiology:with recu rrent falls several over the last few months E tiology unclear w ill update carotid to r/o significant stenosis W ill do CT head to r/o acute infarct in setting of recurrent falls and known carotid stenosis W ill update echo to r/o LV dysfunction or valvular abnormalities [place] [facility] Cardiology Jonathan Vasquez MD Cardiology Jonathan Vasquez MD Cardiology Jonathan Vasquez MD Cardiology Jonathan Vasquez MD Cardiology- seen wit h auto body repairman: C urrent 1 ppd e ncouraged cessation Ximena Santiago NP Cardiology- seen wit h auto body repairman: E levated in office today, per patient has been running high this morning 190/100 r pm reviewed and uptrending r echeck renal artery duplex Her updated medication list for this problem includes: Carvedilol 12.5 Mg Tablet (Carvedilol) Lisinopril 40 Mg Tablet (Lisinopril) ..... 1 tablet by mouth once a day Ximena Santiago NP Cardiology- seen wit h auto body repairman: r ica with chronic occlusion l eft ica 50-79% r epeat in 2022 Ximena Santiago NP Cardiology- seen wit h auto body repairman: H er updated medication list for this problem includes: Atorvastatin 40 Mg Tablet (Atorvastatin) ..... Take 1 tablet by mouth once a day Ximena Santiago NP Cardiology- seen wit h auto body repairman: N oted on recent vascular study 10/[address] Thomas. Will monitor and follow. continue statin therapy r epeat in 2022 Ximena Santiago NP Cardiology- seen wit h auto body repairman: p atient had stent per Dr. Thomas to left renal artery 10/2021. Remains on asa and plavix. r epeat in 2022 Ximena Santiago REEFER ENGINEER Cardiology:patient h ad stent per Dr. Thomas to lt renal artery 10/2021. Remains on asa and plavix. [facility] Cardiology:Noted on recent vascular study 10/[address] Thomas. Will monitor and follow. continue statin therapy [facility] Cardiology:remains o n statin therapy H er updated medication list for this problem includes: Atorvastatin 40 Mg Tablet (Atorvastatin) ..... Take 1 tablet by mouth once a day [facility] Cardiology:Elevated today states has been well controlled at home. Will continue present regimen and monitor. H er updated medication list for this problem includes: Carvedilol 12.5 Mg Tablet (Carvedilol) Lisinopril 40 Mg Tablet (Lisinopril) ..... 1 tablet by mouth once a day [place] Nicole [facility] Cardiology Jonathan Vasquez MD Cardiology Jonathan Vasquez MD Cardiology Jonathan Vasquez MD Cardiology Jonathan Vasquez MD Cardiology Jonathan Vasquez MD Cardiology Jonathan Vasquez MD Cardiology follow up Jonathan king MD Cardiology follow up Jonathan king MD Cardiology follow up Jonathan king MD Cardiology follow up Jonathan king MD Cardiology follow up Jonathan king MD Cardiology follow up Jonathan king MD Cardiology follow up Jonathan king MD Cardiology follow up Jonathan king MD Cardiology follow up Jonathan king MD Cardiology follow up Jonathan king MD Cardiology follow up Jonathan king MD Cardiology follow up Jonathan king MD Cardiology follow up Jonathan king MD Cardiology follow up Jonathan king MD Cardiology follow up Jonathan king MD Cardiology follow up Jonathan king MD Cardiology follow up Jonathan king MD Cardiology follow up Jonathan king MD Cardiology hospital follow up:Hasn't been taking lisinopril. Will resume. Jonathan Vasquez MD Cardiology hospital follow up Ra penny Vasquez MD Cardiology hospital follow up Ra penny Vasquze MD Cardiology hospital follow up Ra penny Vasquez MD Cardiology hospital follow up:CTA shows occluded MALLORIE. LICA is patent and has chitina of mcneal. Jonathan Vasquez MD Cardiology hospital follow up:Still with occasional vertigo. Will try meclizine prn. Jonathan Vasquez MD Cardiology follow up Jonathan king MD Cardiology follow up Jonathan king MD Cardiology follow up :Needs low dose CT to screen for lung CA. Jonathan Vasquez MD Cardiology follow up Jonathan king MD Cardiology follow up Jonathan king MD Cardiology follow up :HR 48, will decrease coreg and have her wear monitor for 1 week to see if HR increases. If not, then will d/c coreg. Jonathan Vasquez MD Cardiology follow up Jonathan king MD Cardiology follow up :Has left subclavian stent that has restenosed. Having pain and weakness left arm. Needs CARD DECORATOR inside stent. Jonathan Vasquez MD Cardiology follow up Jonathan ikng MD Cardiology follow up Jonathan king MD Cardiology follow up Jonathan king MD Cardiology follow up Jonathan king MD Cardiology follow up Jonathan king MD Cardiology Jonathan Vasquez MD Cardiology Jonathan Vasquez MD Cardiology Jonathan Vasquez MD Cardiology Jonathan Vasquez MD Cardiology:CTA shows > 70% on right. R efer to vascular surgery for eval. Jonathan Vasquez MD Cardiology:No arrythmias on even t monitor. Jonathan Vasquez MD Cardiology Jonathan Vasquez MD Cardiology Jonathan Vasquez MD Cardiology Jonathan Vasquez MD Cardiology Jonathan Vasquez MD Cardiology Jonathan Vasquez MD Cardiology Jonathan Vasquez MD Cardiology Jonathan Vasquez MD Cardiology Jonathan Vasquez MD Cardiology Jonathan Vasquez MD Cardiology Jonathan Vasquez MD Cardiology Jonathan Vasquez MD Cardiology Jonathan Vasquez MD Cardiology Jonathan Vasquez MD Cardiology Jonathan Vasquez MD Cardiology Hospital Follow up Ra penny Vasquez MD Cardiology Hospital Follow up Ra penny Vasquez MD Cardiology Hospital Follow up Ra penny Vasquez MD Cardiology Hospital Follow up Ra penny Vasquez MD Cardiology Hospital Follow up Ra penny Vasquez MD Cardiology Hospital Follow up :Bp normal at home. No change in meds. Jonathan Vasquez MD Cardiology Jonathan Vasquez MD Cardiology Jonathan Vasquez MD Cardiology Jonathan Vasquez MD Cardiology Jonathan Vasquez MD Cardiology:Question of subclavian steal. Needs angio/intravascular u/s. Jonathan Vasquez MD Cardiology Jonathan Vasquez MD Cardiology Jonathan Vasquez MD Cardiology Jonathan Vasquez MD Cardiology Jonathan Vasquez MD Cardiology Jonathan Vasquez MD Cardiology Jonathan Vasquez MD Cardiology Jonathan Vasquez MD Cardiology Jonathan Vasquez MD Cardiology Jonathan Vasquez MD Cardiology Jonathan Vasquez MD Cardiology Jonathan Vasquez MD Cardiology Jonathan Vasquez MD temo Vasquez MD temo Vasquez MD new:S/P left iliac and left mely l stents. Jonathan Vasquez MD temo Vasquez MD temo Vasquez MD f/u leg pain-(KIT) t marycarmen:The Patient was reencouraged to stop smoking. Richard Humphrey MD f/u leg pain-(KIT) t marycarmen: T he following medications were removed from the medication list: Toprol Xl 100 Mg Tb24 (Metoprolol succinate) ..... One tab twice daily Aspirin 81 Mg Tabs (Aspirin) ..... One tab. daily Altace 10 Mg Caps (Ramipril) ..... One tab. daily Her updated medication list for this problem includes: Exforge 5-160 Mg Tabs (Amlodipine besylate-valsartan) ..... One tab. daily Richard Humphrey MD f/u leg pain-(KIT) t marycarmen: H er updated medication list for this problem includes: Lipitor 20 Mg Tabs (Atorvastatin calcium) ..... One tab. daily Richard Humphrey MD f/u leg pain-(KIT) t marycarmen:the kit today demonstrated both legs are ok with an kit of 0.9 on right and 0.7 on left. will repeat the study with exercise. Richard Humphrey MD Date Name PROTHROMBIN TIME WIT H INR LIPID PANEL Arterial Duplex Bi-L ower EX Renal Artery Duplex CT Head without cont rast Carotid Duplex Bilat eral Complete Echo Aorta Duplex Ultraso und Renal Artery Duplex Carotid Duplex Bilat eral Low Dose Lung CT RPM (remote patient monitoring) PROTHROMBIN TIME WIT H INR CBC (INCLUDES DIFF/P LT) LIPID PANEL BASIC METABOLIC PANE L W/EGFR Mobile Cardiac Tele Peripheral Stent - S [facility] Low Dose Lung CT CT Head without cont rast Carotid Duplex Bilat eral MRI, Other Mobile Cardiac Tele Carotid Duplex Bilat eral STR - Adenosine Complete Echo Carotid Duplex Bilat eral Complete Echo Arterial Duplex Bi-L ower EX BASIC METABOLIC PANE L W/EGFR LIPID PANEL CBC (INCLUDES DIFF/P LT) PROTHROMBIN TIME WIT H INR Aortic Abdominal Ult rasound Carotid Duplex Bilat eral Renal Artery Duplex Complete Echo Arterial Duplex Bi-L ower EX Carotid Duplex Bilat eral STR - Adenosine Arterial Duplex Lowe r Extremity Bilateral HISTORY OF PROCEDURES Procedure Date Procedure Name Provider Procedure Notes S tatus Complex e/m visit add on Jonathan Vasquez MD completed Protime Jonathan Vasquez MD complete d Counseling LDCT Jonathan Vasquez MD com pleted EKG Jonathan Vasquez MD complete d EKG Jonathan Vasquez MD complete d Mobile Cardiac Telem etry - Tech Jonathan Vasquez MD completed Mobile Cardiac Telem etry - Prof Jonathan Vasquez MD completed Counseling LDCT Jonathan Vasquez MD com pleted EKG Jonathan Vasquez MD complete d Regadenoson, 4 units Jonathan Vasquez MD completed Cardiolite, 2 units Jonathan Vasquez MD completed SPECT Images Shree Rhoades MD compl eted Stress EKG Kulwant Jackson MD completed Mobile Cardiac Telem etry - Tech Jonathan Vasquez MD completed Mobile Cardiac Telem etry - Prof Jonathan Vasquez MD completed SNOMED-CT: 517244203 [id number] Current Medications Documented Jonathan Vasquez MD completed SNOMED-CT: 221944437 526147 Current Medications Documented Jonathan Vasquez MD completed SNOMED-CT: 015437541 366859 Current Medications Documented Jonathan Vasquez MD completed EKG Jonathan Vasquez MD complete d SNOMED-CT: 726908364 103859 Current Medications Documented Jonathan Vasquez MD completed SNOMED-CT: 516607434 Smoking Cessation Counseling Jonathan Vasquez MD completed SNOMED-CT: 349515957 293152 Current Medications Documented Jonathan Vasquez MD completed SNOMED-CT: 097175973 Smoking Cessation Counseling Jonathan Vasquez MD completed SNOMED-CT: 197809165 532956 Current Medications Documented Jonathan Vasquez MD completed Stress EKG Kulwant Jackson MD completed Regadenoson, 4 units Jonathan Vasquez MD completed Cardiolite, 2 units Jonathan Vasquez MD completed SPECT Images Shree Rhoades MD compl eted EKG Richard Humphrey MD completed
[2024-07-10 10:51] LABS: Glucose Point of Care 93 mg/dl (65-105)
== END 2024-07-10 10:11 | disposition home or self-care (01) ==
LOC: ANHIMG 10:12
PROVIDERS: PCP Physician Assistant Medical; Visit Provider Internal Medicine Hematology & Oncology
DX: C34.31 Malignant neoplasm of lower lobe, right bronchus or lung (principal); J43.9 Emphysema, unspecified; R91.8 Other nonspecific abnormal finding of lung field
CPT/HCPCS: 78815; A9552

== ENCOUNTER 2024-10-20 15:32 | Outpatient (CLI) | payer MEDICARE, SELFPAY ==
--- NOTE | ~2024-10-20 | CT_ITS ---
CT Scan of the Chest without Contrast: Clinical Indication: Lung cancer Technique: Contiguous sections were acquired throughout the chest without intravenous contrast. Dose reduction technique was used on this scan by utilizing automated exposure control and iterative recon struction technique. The dose-length product (DLP) was 218.96 mGy-cm. COMPARISON: 06/18/2024 Findings: There is no evidence of any significant mediastinal, hilar or axillary lymphadenopathy. There are ext ensive atherosclerotic calcifications of the aorta and coronary arteries. Small calcified mediastinal and left hilar lymph nodes are present. No pericardial effusion. Severe emphysema present. Minimal right pleural effusion present. There is stable irregular nodular c onsolidation the right lower lobe posteriorly measuring up to 2.1 cm in diameter (axial image 62). Th ere is additional consolidation more inferiorly the posterior right lung base with increase in extent , measuring 3.9 cm in diameter (axial image 75). There is extensive interstitial thickening in the ronen ngs. Images through the upper abdomen reveal 3.1 cm infrarenal abdominal aortic aneurysm. There are extens tee atherosclerotic calcifications of the abdominal aorta. Stent present at the origin of the left re nal artery. Impression: 2.1 cm irregular nodular consolidation the suprasellar right lower lobe posteriorly. This could refle ct neoplasm, rounded atelectasis, less likely pneumonia. Correlate clinically. More extensive irregular area of consolidation the more inferior posterior right lower lobe, measurin g up to 3.9 cm in extent. Again, diagnostic constrictions include pneumonia, rounded atelectasis, or neoplasm. Minimal right pleural effusion. Severe emphysema with probable associated chronic interstitial disease. Reviewed, dictated and finalized at [facility]. Impression: 2.1 cm irregular nodular consolidation the suprasellar right lower lobe posteri lindsay. This could reflect neoplasm, rounded atelectasis, less likely pneumonia. Correlate clinically. More extensive irregular area of consolidation the more inferior posterior righ t lower lobe, measuring up to 3.9 cm in extent. Again, diagnostic constrictions include pneumonia, rounded atelectasis, or neoplasm. Minimal right pleural effusion. Severe emphysema with probable associated chronic interstitial disease.
--- OUTSIDE RECORDS SUMMARY | 2024-10-20 15:37 | XMS_ITS | Clinical Summary ---
Author Organization [facility] Address [address] [place] [address] Care Team Providers Care Systems Navigator Name Role Phone Babita Reyes PA-C Primary Care Provider [phone]- [phone] Allergies Active Allergy Reactions Criticality Noted Date Comments Hydralazine Hcl Unknown 05/13/2012 Cephalexin Unknown 05/13/2012 Hydrochlorothiazide-Triamter lance Unknown 05/13/2012 Morphine Unknown 12/15/2022 Penicillins Shortness of Breath,Unknown High 05/13/2012 Medications lisinopril 40 MG tabletIndication s:Hypertension Take 1 tablet (40 mg total) by mouth daily. Indications: High Blood Pressure 09/27/19 19 Active pantoprazole EC 20 MG tabletIndication s:GERD Take 1 tablet (20 mg total) by mouth daily as needed. Indications: GERD 09/27/19 19 Active clopidogrel 75 MG tabletIndication s:CVA [The details of the medication are not available because there are pending changes by a home health clinician.] 30 tablet 01/02/20 19 Active Additional Information Patient taking differently:75 mg Oral Daily,Indications: CVA/PVD, Reported on 09/09/2024 ATORVASTATIN 40 MG tabletIndication s:Hyperlipidemia TAKE 1 TABLET(40 MG) BY MOUTH DAILY 90 tablet 01/10/20 19 Active ALPRAZolam (XANAX) 0.25 MG tabletIndication s:Anxiety Take 1 tablet (0.25 mg total) by mouth 2 (two) times daily as needed for Anxiety. Indications: Feeling Anxious 06/12/19 23 Active desmopressin (DDAVP) 0.2 MG tabletIndication s:urinary incontinence at HS Take by mouth nightly at bedtime. Indications: urinary incontinence at HS at bedtime. Active escitalopram (LEXAPRO) 10 MG tabletIndication s:Depression Take 1 tablet (10 mg total) by mouth daily. Indications: Depression 05/15/20 22 Active melatonin 5 MG tabletIndication s:Insomnia Take 1 tablet (5 mg total) by mouth nightly as needed (sleep). Indications: Trouble Sleeping Active Vitamin D3 (CHOLECALCIFEROL ) 50 mcg tabletIndication s:Vitamin and/or Mineral Deficiency Take 1 tablet (50 mcg total) by mouth daily. Indications: Vitamin and/or Mineral Deficiency Active carvedilol (COREG) 12.5 MG tabletIndication s:Hypertension Take 1 tablet (12.5 mg total) by mouth 2 (two) times daily. 60 tablet 09/08/19 25 Active NIFEdipine XL (ADALAT CC) 30 MG 24 hr tabletIndication s:Hypertension Take 1 tablet (30 mg total) by mouth daily. 30 tablet 09/09/19 25 Active OXYGENIndication s:Hypoxia,shortn ess of breath 2 L/min by Nasal route as needed (shortness of breath). Indications: Hypoxia, shortness of breath 09/09/19 25 Active Acetaminophen 325 MG CapIndications:P ain Take 2 tablets by mouth every 4 (four) hours as needed. Indications: Pain 09/09/19 25 Active nicotine (NICODERM CQ) 21 MG/24HRIndicatio ns:smoking cessation Place 1 patch (21 mg total) onto the skin daily for 30 days. 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 (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/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 GERD (gastroesophageal reflux disease) 5 Nicotine dependence 08/06/2014 Peripheral vascular disease 10/21/2012 Hypercholesterolemia 05/15/2012 Resolved Problems Problem Noted Date Diagnosed Date Resolved Date Encounter for preventive health examination 12/07/2011 02/13/2020 Encounters Date Type Department Care Team Description 09/25/2024 12:21 PM CDT - 09/25/2024 11:59 PM CDT Hospital Encounter [facility] [address] [place] [address] Babita Reyes PA-C Discharge Disposition: Home or Self Care (Routine Discharge) 09/25/2024 10:30 AM CDT Home Care Visit [address] [address] Roxy Ndiaye, PT PT OASIS DISCHARGE 09/25/2024 Travel 09/22/2024 12:00 PM CDT Home Care Visit [facility] Care [address] [address] Shreya Lerma, PERCUSSION INSTRUMENT REPAIRER PERCUSSION INSTRUMENT REPAIRER HOME VISIT 09/22/2024 11:00 AM CDT Home Care Visit [facility] Care [address] [address] Olga Mcgee, LOBITO SN DISCIPLINE DISCHARGE 09/22/2024 Home Care Visit [address] [address] Olga Mcgee RN [facility] 09/18/2024 1:15 PM CDT Home Care Visit [facility] Home Care [address] [address] Shreya Lerma, PERCUSSION INSTRUMENT REPAIRER PERCUSSION INSTRUMENT REPAIRER HOME VISIT 09/15/2024 10:30 AM CDT Home Care Visit [facility] Home Care [address] [address] Soniya Singh LPN SN HOME VISIT 09/15/2024 9:00 AM CDT Home Care Visit [facility] Home Care [address] [id number] Shreya Lerma, PERCUSSION INSTRUMENT REPAIRER PERCUSSION INSTRUMENT REPAIRER HOME VISIT 09/12/2024 9:30 AM CDT Home Care Visit [facility] Care [address] Care [facility] [address] [place], [place] [phone] Maricarmen Shaver, PT PT INITIAL EVALUATION 09/11/2024 10:00 AM CDT Home Care Visit [facility] Care [address] [place], [place] [id number] Olga Mcgee, RN SN OASIS RESUMPTION OF CARE 09/11/2024 Hospital Follow-up Call [facility] [address] [place], [place] [phone] May Banks LPN Follow Up Call ([facility] 09/08-09/10/24) 09/11/2024 Plan of Care Documentation [facility] Home Care [address] [phone] 09/11/2024 Telephone [facility] [address] [place] [address] Freida Munson, RN Follow Up Call (Patient states :she feels better and will call to get appt w/ PCP ) 09/10/2024 Home Care Visit [facility] Home Care [address] [place], [place] [phone] Roxy Ndiaye, PT CASE COMMUNICATION 09/10/2024 Home Care Visit [facility] Home Care [address] [place] [address] [place] [address] Ryanne Adames RN SN OASIS TRANSFER W/OUT DC 09/10/2024 Telephone [facility] Care Management [address] [place] [address] Yina Bhatia, green chain puller (Swing bed referral to [facility] from [facility]/) 09/09/2024 Hospital Follow-up Call [facility] Care Management [address] [place] [address] May Banks LPN Follow Up Call ([facility] 09/04-09/07/24) 09/09/2024 Travel 09/08/2024 7:47 PM CDT - 09/10/2024 3:30 PM CDT Hospital Encounter [facility] Med/Surg [address] [place] [address] Osvaldo Zuñiga MD Ojulari, MD Sheng Hernandez Michael, MD McGowen, Payton K, MD Dizziness Discharge Disposition: Left Against Medical Advice 09/08/2024 10:45 AM CDT Home Care Visit [facility] Home Care [address] [place] [address] Brit Suarez, LOBITO SN OASIS START OF CARE 09/08/2024 Plan of Care Documentation [facility] Care [address] [place] [address] 09/04/2024 9:44 AM CDT - 09/07/2024 3:25 PM CDT Hospital Encounter [facility] Med/Surg [address] [place] [address] Saniya Nagel MD Harris, Michael, MD Daniels, Cindy Villeda, CON[employer]TER Dizziness Discharge Disposition: Home with Home Health Care 09/04/2024 Travel from Last 3 Months Immunizations Immunization Administration Dates Next Due Fluad influenza vaccine, Stephen drivalent (aIIV4), Inactivated, adjuvanted, preservative free, 0.5 mL,IM use 03/16/2018 Fluzone High Dose - >Age 65 (Prefilled Syringe) 03/24/2019,02/17/2017 Influenza (Generic) 04/06/2014,03/19/2012 Influenza Adult (Generic) 03/23/2015,01/31/2013 Pneumococcal (Pneumovax 23) 02/17/2017 Pneumococcal (Prevnar 13) 05/23/2015 Zoster (Zostavax) [address] Unt/0.65Ml 01/31/2013 Family History Medical History Relation Comments Cancer Brother Diabetes Brother Hyperlipidemia Brother Hypertension Brother COPD Mother Cancer Sister Diabetes Sister Hyperlipidemia Sister Hypertension Sister Breast Cancer Neg Hx Relation Status Comments Brother Mother Sister Social History Tobacco Use Types Packs/Day Years Used Date Smoking Tobacco: Every Day Cigarettes 1.5 60 Smokeless Tobacco: Never Tobacco Cessation:Ready to Q uit: No; Counseling Given: Yes Alcohol Use Standard Drinks/Week Comments No 0 (1 standard drink = 0.6 oz pur e alcohol) OASIS D0700: Social Isolation Answer Da te Recorded Frequency of experiencing loneliness or isolatio n Rarely 09/25/2024 OASIS A1250: Transportation Answer Date Recorded Lack of Transportation (Medical) No 09/25/2024 Lack of Transportation (Non-Medical) No 09/25/2024 Patient Unable or Declines to Respond No 09/25/2024 OASIS B1300: Health Literacy Answer Segundo e Recorded Frequency of needing help to read materials from doctor or pharmacy Never 09/25/2024 B1300 Health Literacy Answer Date Recor ded How often do you need to hav e someone help you when you read instructions, pamphlets, or other written material from your doctor or pharmacy? Sometimes 09/09/2024 [employer] Utilities Answer Date Recorded In the past 12 months has [facility] [employer], [employer], or water [employer] threatened to shut off services in your home? No 09/09/2024 Humiliation, Afraid, Rape, and Kick questionnair e Answer Date Recorded Within the last year, have y ou been afraid of your partner or ex-partner? No 09/09/2024 Within the last year, have y ou been humiliated or emotionally abused in other ways by your partner or ex-partner? No Within the last year, have y ou been kicked, hit, slapped, or otherwise physically hurt by your partner or ex-partner? No 09/09/2024 Within the last year, have y ou been raped or forced to have any kind of sexual activity by your partner or ex-partner? No 09/09/2024 Social Connection and Isolat ion Panel [NHANES] Answer Date Recorded In a typical week, how many times do you talk on the phone with family, friends, or neighbors? More than three times a week 09/09/2024 How often do you get togethe r with friends or relatives? Once a week 09/09/2024 How often do you attend chur ch or buddhism services? Never 09/09/2024 Do you belong to any clubs o r organizations such as baptist groups, unions, fraternal or athletic groups, or school groups? No 09/09/2024 How often do you attend meet ings of the clubs or organizations you belong to? Never 09/09/2024 Are you , , di vorced, , never , or living with a partner? 09/09/2024 AUDIT-C Answer Date Recorded Q1: How often do you have a drink containing alcohol? Never 09/09/2024 Q2: How many drinks containi ng alcohol do you have on a typical day when you are drinking? Patient does not drink Q3: How often do you have si x or more drinks on one occasion? Never 09/09/2024 Overall Financial Resource Strain (CARDIA) Answe r Date Recorded How hard is it for you to pa y for the very basics like food, housing, medical care, and heating? Not hard at all 09/09/2024 PHQ-2 Answer Date Recorded Patient Health Questionnaire-2 Score 0 12/15/2022 [facility] - Occupational Stress Questionnaire Answer Date Recorded Do you feel stress - tense, restless, nervous, or anxious, or unable to sleep at night because your mind is troubled all the time - these days? Only a little 09/09/2024 Exercise Vital Sign Answer Date Recorde d On average, how many days pe r week do you engage in moderate to strenuous exercise (like a brisk walk)? 0 days 09/09/2024 On average, how many minutes do you engage in exercise at this level? 0 min 09/09/2024 Hunger Vital Sign Answer Date Recorded Within the past 12 months, y ou worried that your food would run out before you got the money to buy more. Never true 09/10/19 25 Within the past 12 months, t he food you bought just didn't last and you didn't have money to get more. Never true 09/09/2024 PRAPARE - Transportation Answer Date Re corded In the past 12 months, has l ack of transportation kept you from medical appointments or from getting medications? No 01/2025 In the past 12 months, has l ack of transportation kept you from meetings, work, or from getting things needed for daily living? No 09/09/2024 Housing Stability Vital Sign Answer Segundo e Recorded In the last 12 months, was t here a time when you were not able to pay the mortgage or rent on time? No 09/09/2024 In the past 12 months, how m any times have you moved where you were living? 0 09/09/2024 At any time in the past 12 m [facility], were you homeless or living in a fdc (including now)? No 09/09/2024 Comments No Sex and Gender Information Value Date Recorded Sex Assigned at Female 09/04/2024 2:14 PM CDT Legal Sex Female 6:08 PM CDT Gender Identity Female 10/13/2021 1:18 PM CDT Sexual Orientation Not on file Last Filed Vital Signs Vital Sign Reading Time Taken Comments Blood Pressure 122/60 09/25/2024 10:44 AM CDT Pulse 66 09/25/2024 10:44 AM CDT Temperature 35.8 C (96.4 F) 09/25/2024 10:44 AM CDT Respiratory Rate 18 09/25/2024 10:44 AM CDT Oxygen Saturation 94% 09/22/2024 11:40 AM CDT Inhaled Oxygen Concentration - - Weight 63.1 kg (139 lb 1.8 oz) 09/10/2024 3:30 A M CDT Height 162.6 cm (5' 4 ) 09/09/2024 12:32 AM CDT Body Mass Index 23.88 09/09/2024 12:32 AM CDT Plan of Treatment Health Maintenance Due Date Last Done Comments ASCVD Statin 1950 Colorectal Cancer Screening Colonoscopy (10 Years) 1950 Hepatitis C 12/12/1967 DTaP, Tdap and Td Vaccines (1 - Tdap) 1968 Lung Cancer Screening 12/12/1999 RSV Immunization or 60+ Years (1 - Risk 60-74 years 1-dose series) 2009 Zoster Vaccines (2 of 3) 03/28/2013 01/31/2013 Annual Medicare Wellness Visit 2014 ASCVD LDL 01/02/2020 01/01/2019, 12/02, 08/19/2013 COVID-19 Vaccine (1 - season) 2024 PHQ-2 (Physician [place]) 06/04/2024 12/15/2022 Mammogram Screening 09/25/2026 09/25/2024, 06/26/2023, 09/06/2021, Additional history exists Pneumococcal Vaccine: 50+ Years Completed 02/17/2017, 05/23/2015 Dexa Scan (General) Completed 09/06/2021, Meningococcal B Vaccine Aged Out No l onger eligible based on patient's age to complete this topic Meningococcal Vaccine Aged Out No pricilla narda eligible based on patient's age to complete this topic RSV Immunizations Under 20 Months Aged Out No longer eligible based on patient's age to complete this topic Goals Goal Patient Goal Type Associated Problems Recent Progress Patient-Stated? 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 Procedure Name Priority Date/Time Associated Diagnosis Comments MG SCREENING W DESTINEY MARLENE DIGI Routine 09/25/2024 2:05 PM CDT Visit for screening mammogram CBC W/DIFF AUTOMATED Routine 09/10/2024 6:21 AM CDT BASIC METABOLIC PANEL Routine 09/10/2024 6:21 AM CDT XR CHEST PORTABLE STAT 09/08/2024 10: 50 PM CDT ECG 12-LEAD Routine 09/08/2024 8:01 PM CDT MAGNESIUM STAT 09/08/2024 8:00 PM CDT PRO-BRAIN NATRIURETIC PEPTIDE STAT 09/08/2024 8:00 PM CDT TROPONIN, QUANT STAT 09/08/2024 8:00 PM CDT COMPREHENSIVE METABOLIC PANEL STAT 09/08/2024 8:00 PM CDT CBC W/DIFF AUTOMATED STAT 09/08/2024 8:00 PM CDT HOME O2 EVAL Routine 09/07/2024 9:28 AM CDT BASIC METABOLIC PANEL Routine 09/07/2024 6:58 AM CDT CBC W/DIFF AUTOMATED Routine 09/07/2024 6:58 AM CDT MAGNESIUM Routine 09/07/2024 6:58 AM CDT MAGNESIUM Routine 09/06/2024 7:46 AM CDT BASIC METABOLIC PANEL Routine 09/06/2024 7:46 AM CDT CBC W/DIFF AUTOMATED Routine 09/06/2024 7:46 AM CDT HC URINALYSIS AUTO W/O MICRO Routine 09/05/2024 4:27 PM CDT CULTURE, BACTERIA, BLOOD Routine 09/05/2024 10:21 AM CDT RESPIRATORY PCR PANEL 2 Routine 09/06/19 9:30 AM CDT PROCALCITONIN (PCT) Routine 09/05/2024 6 :09 AM CDT MAGNESIUM Routine 09/05/2024 6:09 AM CDT COMPREHENSIVE METABOLIC PANEL Routine 09/05/2024 6:09 AM CDT CBC W/DIFF AUTOMATED Routine 09/05/2024 6:09 AM CDT ECG 12-LEAD STAT 09/04/2024 10:[address] HEAD WO CON STAT 09/04/2024 10:35 AM CDT XR FEMUR LT 2V STAT 09/04/2024 10:35 AM CDT XR PELVIS+LT HIP 2V STAT 09/04/2024 1 0:35 AM CDT XR SHOULDER LT 3V STAT 09/04/2024 10: 35 AM CDT XR CHEST PORTABLE STAT 09/04/2024 10: 07 AM CDT CK (CPK) STAT 09/04/2024 10:05 AM CDT TROPONIN, QUANT STAT 09/04/2024 10:05 AM CDT COMPREHENSIVE METABOLIC PANEL STAT 09/04/2024 10:05 AM CDT PARTIAL THROMBOPLASTIN TIME,PTT STAT 09/04/2024 10:05 AM CDT PROTHROMBIN TIME, VENOUS STAT 09/04/2024 10:05 AM CDT CBC W/DIFF AUTOMATED STAT 09/04/2024 10:05 AM CDT BONE DENSITY/DEXA Routine 09/06/2021 9:5 1 AM CDT Osteoporosis LIPID PANEL Routine 01/01/2019 6:15 AM CDT from Last 3 Months or Most Recently Relevant to Health Maintenance Results * MG SCREENING W DESTINEY MARLENE DIGI (09/25/2024 2:05 PM CDT) Anatomical Region Laterality Modality Breast Bilateral Mammography 09/25/2024 3:42 PM CDT Impressions 09/25/2024 3:51 PM CDT ===== IMPRESSION: ===== 1. Stable mammographic appearance with no new findings to suggest malignancy in either breast. Assessment: ACR BI-RADS 2 - BENIGN FINDING(S) Recommendation: 1:Routine Screening Bilateral Comments: Ordered By: BABITA REYES Interpreted By: Dennis Ortiz, 09/25/2024 3:42 PM Narrative 09/25/2024 3:51 PM CDT [facility] [address] [place] [address] EXAMINATION: Digital bilateral screening mammogram with 3-D tomosynthesis EXAM DATE/TIME: 09/25/2024 12:39 PM REASON FOR EXAM: yearly COMPARISON: September 06, 2021. 06/26/2023 Technique: Digital screening mammography of both breasts was performed in addition to 3-D Tomosynthesis technique. This study was read with the assistance of a computer-aided detection system. Tissue density: The breasts are heterogeneously dense, which may obscure small masses. Findings: There is no new focal asymmetry, dominant mass lesion, area of skin thickening, or cluster of suspicious appearing calcifications in either breast to suggest malignancy. Limited visualization of the left axilla due to difficulty in patient positioning. us Babiat Reyes PA-C MAMMO Final Resu lt * (ABNORMAL) BASIC METABOLIC PANEL (09/10/2024 6:21 AM CDT) Only the most recent of3 resultswithin the time period is included. GLUCOSE 135(H) 70 - 99 MG/DL 09/10/2024 6:59 AM CDT [facility] BUN 16 7 - 18 MG/DL 09/10/2024 6:59 AM CDT [facility] CREATININE S/P/B 0.89 0.55 - 1.02 MG/DL 09/10/2024 6:59 AM CDT [facility] SODIUM S/P/B 138 136 - 145 MMOL/L 09/10/2024 6:59 AM CDT [facility] POTASSIUM S/P/B 4.0 3.5 - 5.1 MMOL/L 09/10/2024 6:59 AM CDT [facility] CHLORIDE S/P/B 103 100 - 108 MMOL/L 09/10/2024 6:59 AM CDT [facility] CO2 27.8 21 - 32 MMOL/L 09/10/2024 6:59 AM CDT [facility] CALCIUM S/P/B 9.6 8.5 - 10.1 MG/DL 09/10/2024 6:59 AM CDT [facility] ANION GAP 7.2 5 - 15 MMOL/L 09/10/2024 6:59 AM CDT [facility] BUN CREATININE RATIO 18.0 6 - 26 09/10/2024 6:59 AM T [facility] GFR ESTIMATE 68(L) >90 ML/MIN/1.7 3 M2 09/10/2024 6:59 AM CDT [facility] Comment: NOTE: eGFR is not calculated for patients <18 years of age. This is an estimated GFR calculation using the new CKD EPI creatinine equation without race and so does not require a correction factor for race. This estimated GFR should not be used for calculating drug doses. 09/10/2024 6:21 AM CDT us Mary Leger MD LABORATORY Final Result [facility] [address] [place] [address], [place] [phone] * (ABNORMAL) CBC W/DIFF AUTOMATED (09/10/2024 6:21 AM CDT) Only the most recent of6 resultswithin the time period is included. WBC 11.54(H) 4.4 - 11.0 x10'3/uL 09/10/2024 6:49 AM CDT [facility] RBC 4.20(L) 4.50 - 5.10 x10'6/uL 09/10/2024 6:49 AM CDT [facility] HGB 12.9 12.3 - 15.3 G/DL 09/10/2024 6:49 AM CDT [facility] HCT 40.2 35.9 - 44.6 % 09/10/2024 6:49 AM T [facility] MCV 95.7 80.0 - 96.0 FL 09/10/2024 6:49 AM T [facility] MCH 30.7 25.3 - 30.9 PG 09/10/2024 6:49 AM T [facility] MCHC 32.1 31.0 - 34.1 G/DL 09/10/2024 6:49 AM T [facility] RDW 14.3 12.4 - 15.1 % 09/10/2024 6:49 AM T [facility] PLT 236 151 - 353 x10'3/uL 09/10/2024 6:49 AM [facility] MPV 9.2(L) 9.6 - 12.0 FL 09/10/2024 6:49 AM T [facility] RBC MORPHOLOGY NORMAL 09/10/2024 6:49 AM T [facility] PLT MORPH. NORMAL 09/10/2024 6:49 AM T [facility] WBC MORPHOLOGY NORMAL 09/10/2024 6:49 AM T [facility] LYMPHOCYTES % 15.7(L) 15.8 - 45.0 % 09/10/2024 6:49 AM T [facility] NEUTROPHILS % 80.4(H) 42.1 - 71.9 % 09/10/2024 6:49 AM T [facility] MONOCYTES % 3.2(L) 5.7 - 12.5 % 09/10/2024 6:49 AM CDT [facility] EOSINOPHILS 0.0 0.0 - 5.6 % 09/10/2024 6:49 AM CDT [facility] BASOPHILS 0.2 0.0 - 1.3 % 09/10/2024 6:49 AM CDT [facility] ABS. NEUTROPHILS 9.28(H) 1.40 - 6.00 x10'3/uL 09/10/2024 6:49 AM CDT [facility] IMMATURE GRANS % 0.5 0.0 - 0.5 % 09/10/2024 6:49 AM CDT [facility] ABS. LYMPHOCYTES 1.81 0.80 - 4.70 x10'3/uL 09/10/2024 6:49 AM CDT [facility] 09/10/2024 6:21 AM CDT us Mary Leger MD LABORATORY Final Result [facility] [address] [place] [id number], * XR CHEST PORTABLE (09/08/2024 10:50 PM CDT) Only the most recent of2 resultswithin the time period is included. Anatomical Region Laterality Modality Chest Radiographic Sheeba ging 09/08/2024 11:4 4 PM CDT Impressions 09/08/2024 11:44 PM CDT IMPRESSION: ======== 1. Increasing prominence of diffuse interstitial markings with lower lung predominance. Infection versus edema. 2. Mild bronchitis Referred By: Interpreted By: Selwyn Rivera MD, 09/08/2024 11:44 PM Narrative 09/08/2024 11:44 PM [address]T [address] [place] [address] Examination: Chest x-ray 1 view Exam Date/Time: 09/08/2024 10:50 PM Reason For Exam: cough Cough, shortness of breath, vertigo Comparison: Chest radiograph 09/04/2024 Technique: Single AP view of the chest was obtained. Findings: Increasing prominence of diffuse interstitial markings throughout both lungs with lower lung predominance. Atherosclerotic aorta. Heart size prominent but stable. Bronchial wall thickening noted. Degenerative changes in the shoulders. No large effusion. No pneumothorax. ======== Procedure Note Selwyn Rivera MD - 09/08/2024 [facility] [address] [facility] [place] [address] Examination: Chest x-ray 1 view Exam Date/Time: 09/08/2024 10:50 PM Reason For Exam: cough Cough, shortness of breath, vertigo Comparison: Chest radiograph 09/04/2024 Technique: Single AP view of the chest was obtained. Findings: Increasing prominence of diffuse interstitial markingsthroughout both lungs with lower lung predominance. Atheroscleroticaorta. Heart size prominent but stable. Bronchial wall thickening noted.Degenerative changes in the shoulders. No large effusion. Nopneumothorax. ======== IMPRESSION: ======== 1. Increasing prominence of diffuse interstitial markings with lower lungpredominance. Infection versus edema. 2. Mild bronchitis Referred By: Interpreted By: Selwyn Rivera MD, 09/08/2024 11:44 PM us Osvaldo Zuñiga MD GENERAL IMAGING Final Resu lt * ECG 12 lead (09/08/2024 8:01 PM CDT) Only the most recent of2 resultswithin the time period is included. 09/08/2024 8:01 PM CDT Narrative [facility] ([facility] RAD - 09/08/2024 10:15 PM CDT [facility] Test Date: 2024-09-08 Pat Name: FARHAD BOCANEGRA Department: 85 Room: [place] [address] Gender: Female Projection Technician: : 1950 Requested By: OSVALDO ZUÑIGA Order Number: [id number] Parris MD: Abbe Farmer Measurements Intervals [place] Rate: 57 P: 69 MS: 149 QRS: 44 QRSD: 102 T: 72 QT: 467 [id number]|2024-10-20 15:37:00|2024-10-20 15:37:00|XMS_ITS|BKG DAEMON|External Medical Summaries|[id number]|" Encounter Summary Created on: October 20, 2024 Farhad Bcoanegra : 1950 Sex: Female Author Organization [facility] Address [facility] [place] [address] Care Team Providers Care Systems Navigator Name Role Phone Rosales Wolfe MD Primary Care Provider [phone] Babita Reyes PA-C Primary Care Provider [phone] Encounter Details Date Type Department Care Team (Late st Contact Info) Description 01/02/2019 Hospital Follow-up Call [facility] Telemetry [place] [address] Mally De La Torre Social History Tobacco [...] Information Value Date Recorded Sex Assigned at Female 09/04/2024 2:14 PM CDT Legal Sex Female 6:08 PM CDT Gender [...] Author Status No 12/31/2018 5:25 PM CDT Angela Mays RN A ctive * Do you have difficulty dressing or bathing? Answer Date of Assessment Author Status No 12/31/2018 5:25 PM CDT Angela Mays RN A ctive * Because of a physical, mental, or emotional condition, do you have difficulty doing errands alone such as visiting a doctor's office or shopping? Answer Date of Assessment Author Status No 12/31/2018 5:25 PM CDT Angela Mays RN A ctive documented as of this encounter Mental Status * Because of a physical, mental, or emotional condition, do you have serious difficulty concentrating, remembering, or making decisions? Answer Entry Date Author Status No 12/31/2018 5:25 PM CDT Angela Mays RN A ctive documented in this encounter Plan of Treatment Not on file documented as of this encounter Visit Diagnoses Not on filedocumented in this encounter Additional Health Concerns Infection Onset Date Last Indicated Resolved Time Respiratory Rule Out 09/05/2024 09/05/2024 025 3:48 PM CDT documented as of this encounter Care Teams Systems Navigator Relationship Specialty Start Date End Date Rosales Wolfe MD [facility] [place] [address] PCP - General INTERNAL MEDICINE 11/12/18 08/25/22 Babita Reyes PA-C [address] [place], [place] [id number] [place] [address] PCP - General PHYSICIAN 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
--- OUTSIDE RECORDS SUMMARY | 2024-10-20 15:37 | XMS_ITS | Continuity of Care Document ---
Author Organization [facility] Address [address] [place] [address] [address] [place] [address] Phone Care Team Providers Care Acute Dialysis Nurse Name Role Phone Michelle Ojeda Unavailable Unavailable Advance Directives Directive Yes / No Effective Date File Name No Information Encounters Encounter Description Practice Location Reason(s) For Visit Diagnoses Date Provider Providers Copied on Encounter [facility], [address], [place], [place], [id number], [place] tel:[phone] [facility] No Information [address]. [address] , [address], [place], [address], [place]. tel:[phone] Family History Family Member Type Diagnosis Age At Onset No Information Payers Payer name Insurance type Covered alliance party ID Authoriza tion(s) [employer] SOI CI [id number] Social History Type Description Quantity Date Captured [...]
--- OUTSIDE RECORDS SUMMARY | 2024-10-20 15:37 | XMS_ITS | Clinical Summary ---
Author Organization [facility] Address [address] [place] [address] Phone Care Team Providers Care Associate Editor Name Role Phone Unavailable Primary Care Provider [...] 50 mg Oral tabletIndications:Co ronary atherosclerosis of viejas coronary artery,Hyperlipidemi a,Hypertension Take 1 Tab by [...] migh t be different from the original. Health Promotion Coordinator - Dr Christian Ascencio Problem Noted Date Diagnosed Date Coronary atherosclerosis of viejas coronary martin ry 11/25/2010 Overview (08/16/2012): 1989 [...] LDL 140 triglyceride 121, normal AST/ALT 07/13 [id number] HDL 43 LDL 100 triglyceride 115, normal AST/ALT 04/05 cholesterol 213 HDL 38 LDL 150 triglyceride 125 COPD (chronic obstructive pulmonary disease) Overview (04/05/2011): 03/[address]: severe rosa emphysema, RLL honeycombing, celiac/SMA /renal artery atherosclerosis, no PE/aortic disease, left hydronephrosis,... 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 Gender Identity Not on file Sexual Orientation Not on file Last Filed Vital Signs Vital Sign Reading Time Taken Comments Blood Pressure 107/64 06/27/2024 9:53 AM EXCELLENCE CONSULTANT Pulse 54 06/27/2024 9:53 AM EXCELLENCE CONSULTANT Temperature 36.3 C (97.3 F) 06/27/2024 9:53 AM EXCELLENCE CONSULTANT Respiratory Rate 15 06/27/2024 9:53 AM EXCELLENCE CONSULTANT Oxygen Saturation 91% 06/27/2024 9:53 AM EXCELLENCE CONSULTANT Inhaled Oxygen Concentration - - Weight 64.1 kg (141 lb 6.4 oz) 06/27/2024 9:53 A M EXCELLENCE CONSULTANT Height 157.5 cm (5' 2 ) 08/16/2012 9:28 AM CDT Body Mass Index - - Plan of Treatment Upcoming Encounters Date Type Department Care Team (Late st Contact Info) Description 10/24/2024 12:00 PM CDT Office Visit [facility] [address] [facility] [address] [place] [address] Quique Palmoo MD [address] [facility] [address] [place] [address] Health Maintenance Due Date Last [...] 02/17/2017 BREAST CANCER SCREENING 06/26/2024 06/26/19 24, 06/26/2023, 06/26/2023, Additional history exists OSTEOPOROSIS SCREENING 09/06/2026 09/06/2021, 2021 PNEUMOCOCCAL VACCINE 50+ YEARS Completed 02/17/2017 , 05/23/2015 Procedures Procedure Name Priority Date/Time Associated Diagnosis Comments COMPREHENSIVE METABOLIC PANEL Routine 10/09/2024 2:27 PM CDT from Last 3 Months Results * COMPREHENSIVE METABOLIC PANEL (10/09/2024 2:27 PM CDT) Blood Quique Palomo MD CHEMISTRY ORDERABLES Final Resu lt from Last 3 Months Insurance MEDICARE PART A AND B [employer] SUPP MEDICARE PART A AND B [facility] SUPP
== END 2024-10-20 15:33 | disposition home or self-care (01) ==
PROVIDERS: PCP Physician Assistant Medical; Visit Provider Internal Medicine Hematology & Oncology
DX: C34.31 Malignant neoplasm of lower lobe, right bronchus or lung (principal); J43.9 Emphysema, unspecified
CPT/HCPCS: 71250

== ENCOUNTER 2024-11-12 09:21 | Emergency (ER) | payer MEDICARE, SELFPAY ==
[2024-11-12] VITALS (8 sets, daily range): BP systolic 170–185; BP diastolic 55–58; PULSE 70–94; RESP 18–26; TEMP 36.8; O2SAT 84–95
--- NOTE | ~2024-11-12 | XR_ITS ---
EXAMINATION: XR chest 2V DATE: 11/12/2024 10:21 INDICATION: Shortness of breath TECHNIQUE: frontal and lateral views of the chest were obtained. COMPARISON: Chest radiograph dated 09/30/[address] dated 10/20/2024 FINDINGS: Expansion of lungs with increased lucency and architectural distortion in the upper lung zones corres ponding to severe emphysema is evident on prior CT. Masslike opacity at the posterior medial right lo wer lung zone remains concerning for malignancy. Increasing interstitial and round glass opacities in the right mid to lower lung zone and at the left lung base concerning for superimposed pneumonia or pulmonary edema. Calcified nodule at the left apex consistent with old granulomatous disease. No pleu ral effusion or pneumothorax. Heart size is normal. Left renal artery stenting. Cholecystectomy clips in right upper quadrant IMPRESSION: 1. Severe emphysema with increasing interstitial and groundglass opacities in the right mid to lower lung zone and at the left lung base which could represent pneumonia, pulmonary edema or combination t hereof. 2. Masslike opacity in the posterior medial right lower lung zone concerning for malignancy. Reviewed, dictated and finalized at location A. IMPRESSION: 1. Severe emphysema with increasing interstitial and groundglass opacities in t he right mid to lower lung zone and at the left lung base which could represent pneumonia, pulmonary edema or combination thereof. 2. Masslike opacity in the posterior medial right lower lung zone concerning fo r malignancy.
--- NOTE | 2024-11-12 09:30 | ECG_ITS ---
Test Date: 2024-11-12 09:30:55 Measurements Intervals [place] Rate: 81 P: 63 [place]: 129 QRS: 10 QRSD: 102 T: 101 QT: 414 QTc: 481 Interpretive Statements SINUS RHYTHM LEFT VENTRICULAR HYPERTROPHY AND ST-T CHANGE CONSIDER INFERIOR INFARCT, AGE INDETERMINATE ST-T WAVE ABNORMALITY IN ANT/HIGH LAT LEADS- CONSIDER ISCHEMIA BASELINE ARTIFACT- I, II, III, AVR, AVL, AVF, V1-V6 ABNORMAL ECG No previous ECG available for comparison Electronically Signed On 11-12-2024 11:20:42 CDT by Sj Vang D.O.
--- NOTE | 2024-11-12 09:44 | PC.NURSE ---
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 this RN got a pulse ox that attaches to pt ear and turned pt off oxygen with EDP at bedside and pt O2 was 82% with a good pleath. this RN turned pt oxygen back on at 2L and pt went back up to 96%
[2024-11-12 09:49] LABS: Basophils Percent Auto 0.3 % (0.2-1.2); Eosinophils Absolute Auto 0.2 K/mm3 (0-0.3); Eosinophils Percent Auto 1.2 % (0-4.4); Hematocrit 43.5 % (37.0-47.0); Hemoglobin 13.3 g/dL (12.0-15.0); Immature Granulocyte Absolute 0.06 K/mm3 (0.00-0.031); Immature Granulocyte Percent A 0.4 % (0-0.5); Lymphocytes Absolute Auto 1.85 K/mm3 (0.9-3.2); Lymphocytes Percent Auto 13.8 % (18.3-44.2); Mean Corpuscular HGB Conc 30.6 g/dl (32-36); Mean Corpuscular Hemoglobin 29.9 pg (26-34); Mean Corpuscular Volume 97.8 fl (80-100); Monocytes Absolute Auto 1.2 K/mm3 (0.1-0.6); Monocytes Percent Auto 8.7 % (2.6-8.5); Neutrophils Absolute Auto 10.1 K/mm3 (1.3-6.7); Neutrophils Percent Auto 75.6 % (45.5-73.1); Platelet Count Result 245 k/mm3 (150-375); Red Blood Count 4.45 M/mm3 (4.2-5.4); Red Cell Distribution Width 15.2 % (11.5-14.5); White Blood Count 13.4 K/mm3 (4.5-10.0)
[2024-11-12 10:02] LABS: Alanine Aminotransferase 20 U/L (6-35); Albumin Level 3.5 g/dL (3.5-5.1); Alkaline Phosphatase 104 U/L (38-126); Anion Gap 6 mmol/L (4-12); Aspartate Amino Transferase 25 U/L (14-36); Bilirubin,Total 0.8 mg/dL (0.2-1.3); Blood Urea Nitrogen 9 mg/dL (7-17); Calcium 8.5 mg/dL (8.4-10.2); Carbon Dioxide 27 mmol/L (22-30); Chloride 105 mmol/L (98-107); Estimated CRCL calculation 44 ml/min; Estimated Glomerular Filt Rate > 60; Glucose 103 mg/dL (65-110); Potassium 3.5 mmol/L (3.4-5.0); Sodium 138 mmol/L (137-145)
[2024-11-12 10:07] LABS: INR 1.1; Prothrombin Time 14.6 Seconds (11.1-14.7)
[2024-11-12 10:08] LABS: Partial Thromboplastin Time 28.7 Seconds (22.3-36.8)
--- OUTSIDE RECORDS SUMMARY | 2024-11-12 10:10 | XMS_ITS | CONTINUITY OF CARE DOCUMENT ---
Author Name rubenjoelle rubenjoelle Address Unknown Organization [facility] Address [address] [place] [address] Phone [phone] Care Team Providers Care Brush Loader And Handle Attacher Name Role Phone Pedro CROOKS, Jonathan Unavailable [phone] MARIA VICTORIA CROOKS, ABDOUL Mathew Unavailable Stanislaw ANN, Jana Unavailable PROBLEMS Condition Status Date Provider Notes HTN essential active Jonathan Vasquez MD CCM E nroll LEG OR ARM PAIN active Collette Grubbsmidt Peripheral artery disease active Mackenzie Prakash timiglia HEAVY EQUIPMENT TECHNICIAN Lung cancer active Jonathan Vasquez MD Bilateral renal artery stenosis active Mackenzie Ventimiglia HEAVY EQUIPMENT TECHNICIAN Abdominal aortic aneurysm active Mackenzie Prakash timiglia HEAVY EQUIPMENT TECHNICIAN Sinus bradycardia active Jonathan Vasquez MD SYNCOPE AND COLLAPSE active Jonathan Oliveira Dizziness active Jonathan Vasquez MD TIA active Jonathan Vasquez MD Unspecified peripheral vascular disease completed - Mackenziegilberto Smithmifroy HEAVY EQUIPMENT TECHNICIAN CCM Enroll Carotid artery disease - hx CEA active Ciera Ortiz RN CAD completed - Jonathan Vasquez MD Family History of Hypertension: active ? Jonathan Vasquez MD Family History of Hypertension: active ? Jonathan Vasquez MD TOBACCO ABUSE active Richard Humphrey MD PHYSICAL EXAMINATION completed - Jonathan Vasquez MD Hyperlipidemia active Jonathan Vasquez MD ENCOUNTERS Date Type Provider Location Encounter Diag nosis - In-person encounter Office Visit Jonathan Vasquez MD [facility] - In-person encounter Office Visit Jonathan Vasquez MD [facility] Unspecified peripheral vascular diseasePeripheral artery disease - In-person encounter Office Visit Jonathan Vasquez MD [facility] - In-person encounter Office Visit Jonathan Vasquez MD [facility] - In-person encounter Office Visit Jonathan Vasquez MD [facility] - In-person encounter Office Visit Jonathan Vasquez MD [facility] - In-person encounter Office Visit Jonathan Vasquez MD [facility] Lung cancer - In-person encounter Office Visit Jonathan Vasquez MD [facility] Abdominal aortic aneurysmBilateral renal artery stenosis - In-person encounter Office Visit Jonathan Vasquez MD [facility] - In-person encounter Office Visit Jonathan Vasquez MD [facility] - In-person encounter Office Visit Jonathan Vasquez MD [facility] - In-person encounter Office Visit Jonathan Vasquez MD [facility] - In-person encounter Office Visit Jonathan Vasquez MD [facility] - In-person encounter Office Visit [facility] Sinus bradycardia - In-person encounter Office Visit Jonathan Vasquez MD [facility] - In-person encounter Office Visit Jonathan Vasquez MD [facility] - In-person encounter Office Visit Jonathan Vasquez MD [facility] HyperlipidemiaPHYSICAL EXAMINATIONSYNCOPE AND COLLAPSE - In-person encounter Office Visit Jonathan Vasquez MD [facility] - In-person encounter Office Visit Jonathan Vasquez MD [facility] - In-person encounter Office Visit Jonathan Vasquez MD [facility] Dizziness - In-person encounter Office Visit Jonathan Vasquez MD [facility] TIA - In-person encounter Office Visit Jonathan Vasquez MD [facility] CAD - In-person encounter Office Visit Jonathan Vasquez MD [facility] Family History of Hypertension:Family History of Hypertension:Carotid artery disease - hx CEAUnspecified peripheral vascular disease - In-person encounter Office Visit Richard Humphrey MD [facility] TOBACCO ABUSE VITAL SIGNS Date Observation Value Provider Body Mass Index (Ratio) 24.97 kg/m2 Yonatan Vasquez MD blood pressure, diastolic 67 mm[Hg] Estefani Bailey blood pressure, systolic 93 mm[Hg] Pat Bailey oxygen saturation, oximetry 85 % Sparkle Bailey pulse rate 60 /min Sparkle Bailey respiratory rate E&M 12 /min Sparkle Bailey weight E&M 141 [lb_av] Sparkle Bailey height E&M 63 [in_i] Sparkle Bailey blood pressure, cuff size regular Estefani Bailey Body Mass Index (Ratio) 25.15 kg/m2 Yonatan Vasquez MD blood pressure, diastolic 67 mm[Hg] Estefani Bailey blood pressure, systolic 94 mm[Hg] Pat lynch Bailey oxygen saturation, oximetry 95 % Sparkle Bailey pulse rate 70 /min Sparkle Bailey respiratory rate E&M 12 /min Sparkle Bailey weight E&M 142 [lb_av] Sparkle Bailey height E&M 63 [in_i] Sparkle Bailey blood pressure, cuff size regular Estefani Bailey Body Mass Index (Ratio) 25.97 kg/m2 Yonatan Vasquez MD blood pressure, cuff size regular [facility], diastolic 67 mm[Hg] [facility] blood pressure, systolic 99 mm[Hg] Michaela [facility] oxygen saturation, oximetry 97 % [facility] respiratory rate E&M 20 /min Jenna Ruiz pulse rate 56 /min [facility] weight E&M 146.6 [lb_av] [facility] height E&M 63 [in_i] [facility] Body Mass Index (Ratio) 25.86 kg/m2 Yonatan Vasquez MD blood pressure, diastolic 84 mm[Hg] Estefani gil Bailey blood pressure, systolic 190 mm[Hg] Pat lynch Bailey blood pressure, cuff size regular Estefani gil Bailey oxygen saturation, oximetry 90 % Sparkle Bailey respiratory rate E&M 14 /min Sparkle Bailey pulse rate 61 /min Sparkle Bailey weight E&M 146 [lb_av] Sparkle Bailey height E&M 63 [in_i] Sparkle Bailey Body Mass Index (Ratio) 25.15 kg/m2 Yonatan Vasquez MD blood pressure, diastolic 72 mm[Hg] Li nkLogic blood pressure, systolic 110 mm[Hg] Nena kLog blood pressure, cuff size regular Marcos [facility] blood pressure, diastolic 72 mm[Hg] [facility] blood pressure, systolic 110 mm[Hg] Mike [facility] pulse rate 66 /min [facility] oxygen saturation, oximetry 90 % [facility] respiratory rate E&M 14 /min Christine Mimi iller weight E&M 142 [lb_av] [facility] height E&M 63 [in_i] [facility] Body Mass Index (Ratio) 23.73 kg/m2 Yonatan Vasquez MD blood pressure, cuff size regular [facility] blood pressure, diastolic 80 mm[Hg] [facility] systolic 120 mm[Hg] [facility] pulse rate 67 /min [facility] oxygen saturation, oximetry 95 % [facility] respiratory rate E&M 12 /min [facility] weight E&M 134 [lb_av] Alfa y height E&M 63 [in_i] Alfa y Body Mass Index (Ratio) 23.03 kg/m2 Yonatan Vasquez MD pulse rate 69 /min Ximena cota [employer] oxygen saturation, oximetry 96 % Ximena Santiago [employer] respiratory rate E&M 20 /min Ximena Santiago [employer] blood pressure, diastolic 98 mm[Hg] Bin Santiago [employer] blood pressure, systolic 146 mm[Hg] Danelle Holloway [employer] weight E&M 130 [lb_av] Ximena Zaragozal le [employer] height E&M 63 [in_i] Ximena Almendarez le [employer] Body Mass Index (Ratio) 21.11 kg/m2 Yonatan Vasquez MD blood pressure, diastolic -1 mm[Hg] Li nkLogic blood pressure, systolic 142 mm[Hg] Nena kLogdeewy blood pressure, diastolic 90 mm[Hg] [facility] darrian Main blood pressure, systolic 142 mm[Hg] Sta holly Quach oxygen saturation, oximetry 90 % Kassandraholly Quach pulse rate 62 /min Kassandraholly Quach weight E&M 119.2 [lb_av] Kassandraholly Quach respiratory rate E&M 16 /min Kassandra monroe height E&M 63 [in_i] Kassandraholly Quach Body Mass Index (Ratio) 20.37 kg/m2 Yonatan Vasquez MD blood pressure, diastolic 82 mm[Hg] Ca therine Willamina blood pressure, systolic 175 mm[Hg] Cat herine Willamina oxygen saturation, oximetry 98 % Joana Shakeel pulse rate 61 /min Joana Willamina respiratory rate E&M 16 /min Catheri ne Willamina weight E&M 115 [lb_av] Joana Shakeel blood pressure, cuff size regular Ca therine Willamina height E&M 63 [in_i] Joana Shakeel Body Mass Index (Ratio) 23.03 kg/m2 Yonatan Vasquez MD blood pressure, cuff size regular Cy ntlucio Johansen blood pressure, diastolic 74 mm[Hg] Cy nthia Eleno blood pressure, systolic 130 mm[Hg] Aydee thia Eleno oxygen saturation, oximetry 97 % Deepali Johansen pulse rate 70 /min Deepali Polobel l respiratory rate E&M 16 /min Deepaliana Johansen weight E&M 130 [lb_av] Deepali Campbel l height E&M 63 [in_i] Deepali Campbel l Body Mass Index (Ratio) 23.91 kg/m2 Yonatan Vasquez MD blood pressure, diastolic 78 mm[Hg] Cy chaya Johansen blood pressure, systolic 132 mm[Hg] Aydee ana Johansen blood pressure, cuff size regular Cy chaya Johansen respiratory rate E&M 16 /min Deepaliana Johansen pulse rate 69 /min Deepali Cuellarbel l oxygen saturation, oximetry 96 % Deepali Johansen weight E&M 135 [lb_av] Deepali Cuellarbel l height E&M 63 [in_i] Deepali Cuellarbel l Body Mass Index (Ratio) 23.03 kg/m2 Yonatan Vasquez MD blood pressure, cuff size regular Cy chaya Johansen blood pressure, diastolic 76 mm[Hg] Cy chaya Johansen blood pressure, systolic 138 mm[Hg] Aydee ana Johansen oxygen saturation, oximetry 98 % Deepali Johansen respiratory rate E&M 16 /min Deepaliana Johansen pulse rate 78 /min Deepali Cuellarbel l weight E&M 130 [lb_av] Deepali Campbel l height E&M 63 [in_i] Deepali Campbel l Body Mass Index (Ratio) 21.79 kg/m2 [...] blood pressure, cuff size small Cy chaya Johansen blood pressure, diastolic 72 mm[Hg] Cy chaya Johansen blood pressure, systolic 140 mm[Hg] Aydee ana Eleno oxygen saturation, oximetry 98 % Deepali Johansen respiratory rate E&M 16 /min Deepaliana Johansen pulse rate 48 /min Deepali Johnson l weight E&M 129 [lb_av] Deepali Cuellarbel l height E&M 63 [in_i] Deepali Campbel l Body Mass Index (Ratio) 24.62 kg/m2 Yonatan Vasquez MD blood pressure, cuff size regular Ke rri Greg blood pressure, diastolic 80 mm[Hg] Ke rri Greg blood pressure, systolic 140 mm[Hg] Albaro Garza oxygen saturation, oximetry 98 % Milady Garza respiratory rate E&M 18 /min Milady goyal pulse rate 93 /min Milady bosweller weight E&M 139 [lb_av] Milady Mccormick lder height E&M 63 [in_i] Milady Mccormick lder Body Mass Index (Ratio) 25.26 kg/m2 Yonatan Vasquez MD blood pressure, diastolic 76 mm[Hg] Antonia Horn blood pressure, systolic 207 mm[Hg] Sarah Horn oxygen saturation, oximetry 97 % Carol Horn respiratory rate E&M 18 /min Bandar Horn pulse rate 80 /min Carol munoz weight E&M 142.6 [lb_av] Carol peoples height E&M 63 [in_i] Carol munoz Body Mass Index (Ratio) 24.44 kg/m2 Yonatan Vasquez MD blood pressure, cuff size regular Kr fermin Loveby blood pressure, diastolic 80 mm[Hg] Gary christensen Dallin blood pressure, systolic 160 mm[Hg] Antony Loveby respiratory rate E&M 17 /min Conchis Loveby pulse rate 76 /min Conchis [place] oxygen saturation, oximetry 99 % Conchis Loveby weight E&M 138 [lb_av] Conchis Dallin height E&M 63 [in_i] Conchis Loveby Body Mass Index (Ratio) 24.27 kg/m2 Yonatan Vasquez MD blood pressure, diastolic 74 mm[Hg] Antonia Horn blood pressure, systolic 157 mm[Hg] Sarah Horn oxygen saturation, oximetry 94 % Carol Horn respiratory rate E&M 18 /min Bandar Horn pulse rate 62 /min Carol munoz weight E&M 137 [lb_av] Carol munoz height E&M 63 [in_i] Carol Flores paigealyse Body Mass Index (Ratio) 24.80 kg/m2 Yonatan Vasquez MD blood pressure, cuff size regular Fransisco Garza blood pressure, diastolic 65 mm[Hg] Ke rrmadison Garza blood pressure, systolic 166 mm[Hg] Albaro Morgansilvia oxygen saturation, oximetry 98 % Milady Morgansilvia respiratory rate E&M 16 /min Milady Merrill sergiolancetomer pulse rate 64 /min Milady Mccormick elbert weight E&M 140 [lb_av] Milady Mccormick [facility] height E&M 63 [in_i] Milady Mccormick [facility] Body Mass Index (Ratio) 25.15 kg/m2 Yonatan Vasquez MD blood pressure, diastolic 100 mm[Hg] Hans james Rodriguez blood pressure, systolic 176 mm[Hg] Kobi charlton Rodriguez respiratory rate E&M 18 /min Elizabeth Rodriguez pulse rate 64 /min Elizabeth Rodriguez oxygen saturation, oximetry 98 % Elizabeth Rodriguez blood pressure, cuff size regular Hans james Rodriguez weight E&M 142 [lb_av] Elizabeth Rodriguez height E&M 63 [in_i] Elizabeth Rodriguez blood pressure, diastolic 80 mm[Hg] Antonia Horn blood pressure, systolic 162 mm[Hg] Sarah Horn pulse rate 69 /min Carol munoz oxygen saturation, oximetry 97 % Carol Horn respiratory rate E&M 16 /min Bandar Horn Body Mass Index (Ratio) 26.29 kg/m2 Vaishnavi Horn weight E&M 148.4 [lb_av] Carol peoples blood pressure, diastolic 80 mm[Hg] Antonia Horn blood pressure, systolic 191 mm[Hg] Sarah Horn pulse rate 67 /min Carol munoz oxygen saturation, oximetry 98 % Carol Horn respiratory rate E&M 16 /min Bandar Horn Body Mass Index (Ratio) 26.71 kg/m2 Vaishnavi Horn weight E&M 150.8 [lb_av] Carol peoples blood pressure, diastolic 82 mm[Hg] Antonia Horn blood pressure, systolic 195 mm[Hg] Sarah Horn Body Mass Index (Ratio) 26.43 kg/m2 Vaishnavi Horn pulse rate 81 /min Carol munoz oxygen saturation, oximetry 99 % Carol Horn respiratory rate E&M 16 /min Bandar Horn weight E&M 149.2 [lb_av] Carol peoples height E&M 63 [in_i] Carol Flores paigealyse blood pressure, diastolic 82 mm[Hg] Ca rol Itzel blood pressure, systolic 134 mm[Hg] Car ol Itzel respiratory rate E&M 16 /min Evelyn Mayer jessica pulse rate 75 /min Evelyn Robbins oxygen saturation, oximetry 98 % Evelyn Robbins weight E&M 152 [lb_av] Evelyn Robbins RESULTS Date Observation Value Provider Reference Range Interpretation Location coagulation managed by Briana Rees RN international normalized ratio (INR) 1.1 Briana Rees RN Normal lipoprotein, beta, serum, point, quantitative, calculated 95 mg/dL LinkLog[facility] 0-99 very low density lipoproteins 26 mg/dL [facility] 5-40 HDL cholesterol, serum 69 mg/dL [facility] >39 triglyceride, serum, random 132 mg/dL [facility] 0-149 cholesterol, serum 190 mg/dL [facility] [phone]/01/ 05 calcium, serum 10.4 mg/dL [facility] 8.7-10.3 High carbon dioxide, venous blood 27 mmol/L [facility] 20-29 chloride, serum 100 mmol/L [facility] 96-106 potassium, serum 6.1 mmol/L [facility] 3.5-5.2 High sodium, serum 141 mmol/L [facility] [phone]/01/ 05 urea nitrogen/creatini ne ratio, serum 14 [...] Not Estab. platelet count 329 X10E3/UL LinkLog[facility] [phone]/01/ 05 red blood cell distribution width 13.6 [...] (low-density lipoprotein/high- density lipoprotein) ratio 1.6 RATIO [facility], beta, serum, point, quantitative, calculated 115.6 (?) LinkLogic 0.0 - 100.0 High HDL cholesterol, serum 73.0 mg/dL [facility] 45.0 - 65.0 High cholesterol, serum 213.0 mg/dL [facility] 0.0 - 200.0 High triglyceride, serum, fasting 122.0 mg/dL [facility] 0.0 - 150.0 urea nitrogen/creatini ne ratio, serum 12.2 Link[facility] - Estimated Glomerular Filtration Rate (calc) 66.6 (?) [facility] 59.0 - chloride, serum 100.8 mmol/L [facility] 98.0 - 107.0 potassium, serum 4.9 mmol/L [facility] 3.5 - 5.1 sodium, serum 144.0 mmol/L [facility] 136.0 - 145.0 creatinine, serum 0.9 mg/dL [facility] 0.5 - 1.0 carbon dioxide, venous blood 26.0 mmol/L [facility] 23.0 - 31.0 calcium, serum 10.3 mg/dL [facility] 8.6 - 10.2 High urea nitrogen, blood 11.0 mg/dL [facility] 8.0 - 23.0 blood glucose, random 95.0 mg/dL [facility] 74.0 - 99.0 red blood cell distribution width, size density 49.1 fL [facility] - immature granulocytes, percentage of total cells, blood 0.3 % [facility] - nucleated red blood cells as percent of blood leukocytes 0.0 % [facility] red blood cell (erythrocyte) count, per high power field 0.0 10*3/UL [facility] eosinophils as percent of blood leukocytes 2.0 % [facility] - neutrophils as percent of blood leukocytes 56.7 % [facility] - Absolute Neutrophils 6.7 CELLS/UL LinkLogic 1.5 - 7.8 basophils as percent of blood leukocytes 0.7 % [facility] - Absolute Basophils 0.1 CELLS/UL [facility] 0.0 - 0.2 monocytes as percent of blood leukocytes 6.3 % [facility] - Absolute Monocytes 0.7 CELLS/UL [facility] 0.2 - 1.0 lymphocytes as percent of blood leukocytes 34.0 % [facility] - Absolute Lymphocytes 4.0 CELLS/UL [facility] 0.9 - 3.9 High mean platelet volume 10.0 (?) [facility] - platelet count 280.0 THOUSAND/UL LinkLog 100.0 - 400.0 mean corpuscular hemoglobin concentration, RBC 31.8 G/DL LinkLog 31.0 - 38.0 mean corpuscular hemoglobin, RBC 31.0 pg [facility] 25.0 - 35.0 mean corpuscular volume, RBC [...] tablet by mouth once a day Jenna Mckeon pantoprazole 20 mg tablet,delayed release (DR/EC) active TAKE 1 TABLET BY MOUTH EVERY DAY NEEDED Jenna Mckeon nifedipine 30 mg tablet extended release 24hr completed TAKE 1 TABLET BY MOUTH DAILY - Jenna Mckeon alprazolam 0.25 mg tablet [facility] desmopressin 0.2 mg tablet active once a day [facility] carvedilol 12.5 mg tablet active 1/2 tablet twice a day [facility] escitalopram oxalate 5 mg tablet completed once [...] 1 tablet by mouth once a day Tal Atkins BENZONATATE 100 MG ORAL CAPSULE completed Take 2 caps by mouth twice daily - Deepali Johansen PREDNISONE 10 MG ORAL TABLET completed TAke as directed - Stacie Rios AMLODIPINE BESYLATE 5 MG ORAL TABLET completed Take 1 tablet daily - Deepali Johansen LEVOFLOXACIN 500 MG ORAL TABLET completed Take [...] ORAL TABLET completed ONE TAB DAILY - Elizabeth Rodriguez COREG 12.5 MG ORAL TABLET completed [...] TABLET completed 1 tablet daily - Carol Honr ALTACE 10 MG ORAL CAPSULE completed ONE [...] Provider personal history of marijuana use no Jonathan Vasquez MD drug use no Jonathan Oliveira alcohol use no Jonathan Oliveira passive cigarette sm breezy exposure no Jonathan Vasquez MD smoking/tobacco cess ation, patient education and counseling yes Jonathan Vasquez MD number of years as a smoker 40 a Jonathan Vasquez MD smoking history, tot al pack/year 40 Jonathan Vasquez MD smoking history, tot al pack/day 2 Jonathan Vasquez MD cigarette use yes Jonathan Vasquez MD smoking status Current every day smoker R mary Vasquez MD personal history of marijuana use no Mackenziegilberto Smithmiglia [facility] drug use no Mackenzie Ventimig lali [facility] alcohol use no Mackenzie Ventimig lali [facility] passive cigarette sm breezy exposure no Mackenzie Ventimiglia [facility] smoking/tobacco cess ation, patient education and counseling yes Mackenzie Ventimiglia [facility] number of years as a smoker 40 a Mackenzie Ventimiglia [facility] smoking history, tot al pack/year 40 Mackenzie Ventimiglia [facility] smoking history, tot al pack/day 2 Mackenzie Ventimiglia [facility] cigarette use yes Mackenzie Ventimi glia [facility] smoking status Current every day smoker A shelly Ventimiglia [facility] personal history of marijuana use no Jenna Mckeon drug use no Jenna Mckeon alcohol use no Jenna Lorenzanaiz passive cigarette sm breezy exposure no [facility] smoking/tobacco cess ation, patient education and counseling yes Jenna Mckeon number of years as a smoker 40 a Jenna Lorenzanaiz smoking history, tot al pack/year 40 Jenna Lorenzanaiz smoking history, tot al pack/day 2 Jenna Lorenzanaiz cigarette use yes [facility] smoking status Current every day smoker L grace Mckeon personal history of marijuana use no Mackenzie Ventimiglia [facility] drug use no Mackenzie Ventimig lali [facility] alcohol use no Mackenzie Ventimig lali [facility] passive cigarette sm breezy exposure no Mackenzie Ventimiglia [facility] smoking/tobacco cess ation, patient education and counseling yes Mackenzie Ventimiglia [facility] number of years as a smoker 40 a Mackenzie Ventimiglia [facility] smoking history, tot al pack/year 40 Mackenzie Ventimiglia [facility] smoking history, tot al pack/day 1 Mackenzie Ventimiglia [facility] cigarette use yes Mackenzie Ventimi glia [facility] smoking status Current every day smoker A shelly Ventimiglia [facility] personal history of marijuana use no Mackenzie Ventimiglia [facility] drug use no Mackenzie Ventimig lali [facility] alcohol use no Mackenzie Ventimig lali [facility] passive cigarette sm breezy exposure no Mackenzie Ventimiglia [facility] smoking/tobacco cess ation, patient education and counseling yes Mackenzie Ventimiglia [facility] number of years as a smoker 40 a Mackenzie Ventimiglia [facility] smoking history, tot al pack/year 40 Mackenzie Ventimiglia [facility] smoking history, tot al pack/day 1 Mackenzie Ventimiglia [facility] cigarette use yes Mackenzie Ventimi glia [facility] smoking status Current every day smoker A shelly Ventimiglia [facility] social history reviewed E&M revi ewed - no changes required Jonathan Vasquez MD social history reviewed E&M revi ewed - no changes required Ximena C Pamela [employer] smoking status Current every day smoker Helen Edwardsnikky [employer] drug use no Mackenzie Ventimig lali [facility] alcohol use no Mackenzie Ventimig lali [facility] physical exercise, frequency, days per week yes Kassandraholly Quach caffeine use, averag e drinks per day no Kassandraholly Quach passive cigarette sm breezy exposure no Kassandraholly Quach smoking/tobacco cess ation, patient education and counseling yes Kassandraholly Quach number of years as a smoker 39 a Kassandra Main smoking history, tot al pack/year 40 Kassandra Main smoking history, tot al pack/day 1 Kassandra Main cigarette use yes Kassandraholly Quach smoking status Current every day smoker S rich Main social history E&M Marital Statu s: Domi hargrove: 2 O ccupation: Retired Smoking History: P atjohn currently smokes every day. P atjohn has been counseled to quit. Jonathan Vasquez MD social history reviewed E&M revi ewed - no changes required Jonathan Vasquez MD physical exercise, frequency, days per week yes Joana Willamina caffeine use, averag e drinks per day no Joana Shakeel passive cigarette sm breezy exposure no Joana Shakeel smoking/tobacco cess ation, patient education and counseling yes Joana Shakeel number of years as a smoker 40 a Joana Shakeel smoking history, tot al pack/year 40 Joana Willamina smoking history, tot al pack/day 1 Joana Willamina cigarette use yes Joana Sahkeel smoking status Current every day smoker C rahul Shakeel social history E&M Marital Statu s: Domi hargrove: 2 O ccupation: Retired Smoking History: P [...] Statu s: Domi hargrove: 2 O ccupation: Retired Smoking History: P [...] Statu s: Domi hargrove: 2 O ccupation: Retired Smoking History: P atjohn currently smokes every day. P atjohn has been counseled to quit. 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 P atjohn has been counseled to quit. Jonathan Vasquez MD social history reviewed E&M revi ewed - no changes required Jonathan Vasquez MD physical exercise, frequency, days per week yes Stacie Gabriel alcohol use, average drinks per day none Stacie Gabriel alcohol use no Stacie Gabriel caffeine use, averag e drinks per day no Stacie Gabriel smoking/tobacco cess ation, patient education and counseling yes Stacie Gabriel passive cigarette sm breezy exposure no Stacie Gabriel number of years as a smoker 40 a Stacie Rios smoking history, tot al pack/year 40 Stacie Rios smoking history, tot al pack/day 1 Stacie Rios cigarette use yes Stacie Rios smoking status Current every day smoker D kenny Rios social history E&M Marital Statu s: 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 P atient has been counseled to quit. 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 Wilfredo parra has been counseled to quit. Jonathan Vasquez MD social history reviewed E&M thalia ewed - no changes required Jonathan Vasquez MD physical exercise, frequency, days per week yes Carol Horn alcohol use, average drinks per day none CarolShanna Horn alcohol use no Carol Flores tammy caffeine use, averag e drinks per day no Carol Houseenson smoking/tobacco cess ation, patient education and counseling yes CarolShanna Horn passive cigarette sm breezy exposure no CarolShanna Horn number of years as a smoker 40 a Carol Horn smoking history, tot al pack/year 40 CarolShanna Horn smoking history, tot al pack/day 1 Carol Horn cigarette use yes Carol Harsh richelle smoking status Current every day smoker Mimi reinosoJaquelinyvette Kory social history reviewed E&M thalia ewed - no changes required Jonathan Vasquez [...] vega smoking status Current every day smoker K chad Garza social history E&M Marital Statu s: Domi hargrove: 2 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 Jonathan Vasquez MD social history reviewed E&M revi ewed - no changes required Jonathan Vasquez MD social history reviewed E&M revi ewed - no changes required Jonathan Vasquez MD physical exercise, frequency, days per week yes Carol Horn alcohol use, average drinks per day none Carol Horn alcohol use no Carol Mark paigeon caffeine use, averag e drinks per day [...] smoking status Current every day smoker Mimi reinosoMarcia Horn social history reviewed E&M revi ewed - no changes required Jonathan Vasquez MD physical exercise, frequency, days per week yes Carol Horn alcohol use, average drinks per day none Carol Horn alcohol use no Carol Mark paigeon caffeine use, averag e drinks per day [...] physical exercise, frequency, days per week yes LinkLogdewey caffeine use, averag e drinks per day no LinkLogdewey alcohol use, average drinks per day none LinkLog number of years as a smoker 10 years [facility] MENTAL STATUS Date Observation Value Provider assessment [...] Payer name Policy type / Coverage type [place] [employer] party ID [facility] [id number] [place] Medicare [id number] ADVANCE DIRECTIVES Name Date DISCUSSED - NO DECISION MADE TREATMENT PLAN Date Name Performer [id number],SJonathan MD [id number],SJonathan MD [id number],SJonathan MD [id number],SJonathan MD [id number],C, C urrent 1 ppd e ncouraged cessation Ximena Santiago NP [id number],C, E levated in office today, per patient has been running high this morning 190/100 r pm reviewed and uptrending r echeck renal artery duplex Her updated medication list for this problem includes: Carvedilol 12.5 Mg Tablet (Carvedilol) Lisinopril 40 Mg Tablet (Lisinopril) ..... 1 tablet by mouth once a day Ximena Santiago NP [id number],C, r ica with chronic occlusion l eft ica 50-79% r epeat in 2022 Ximena Santiago NP [id number],C, H er updated medication list for this problem includes: Atorvastatin 40 Mg Tablet (Atorvastatin) ..... Take 1 tablet by mouth once a day Ximena Santiago NP [id number],C, N oted on recent vascular study 10/[address] Thomas. Will monitor and follow. continue statin therapy r epeat in 2022 Ximena Santiago NP [id number] p fidel had stent per Dr. Thomas to left renal artery 10/2021. Remains on asa and plavix. r epeat in 2022 Ximena Santiago NP [id number],wilfredo Duron had stent per Dr. Thomas to lt renal artery 10/2021. Remains on asa and plavix. Mackenziegilberto Rivera [facility] [id number],C,N oted on recent vascular study 10/[address] Thomas. Will monitor and follow. continue statin therapy Mackenziegilberto Rivera [facility] [id number],Domir emains on statin therapy H er updated medication list for this problem includes: Atorvastatin 40 Mg Tablet (Atorvastatin) ..... Take 1 tablet by mouth once a day Mackenziegilberto Rivera [facility] [id number],S,E levated today states has been well controlled at home. Will continue present regimen and monitor. H er updated medication list for this problem includes: Carvedilol 12.5 Mg Tablet (Carvedilol) Lisinopril 40 Mg Tablet (Lisinopril) ..... 1 tablet by mouth once a day Mackenzie Amadotrung [facility] [id number],S, Jonathan snyder MD [id number],S, Jonathan snyder MD [id number],S, Jonathan snyder MD [id number],S, Jonathan snyder MD [id number],S, Jonathan snyder MD [id number],SJonathan MD [id number],S, Jonathan snyder MD [id number],SJonathan MD [id number],S, Jonathan snyder MD [id number],SJonathan MD [id number],SJonathan MD [id number],SJonathan MD Take your medication s every day [...] Breath, Palpitations, Dizziness, or Edema. Lisa Mohan Cardiology Jonathan Vasquez MD Cardiology: Last visit w ith recurrent falls several over the last few months E tiology unclear w ill update carotid to r/o significant stenosis W ill do CT head to r/o acute infarct in setting of recurrent falls and known carotid stenosis W ill update echo to r/o LV dysfunction or valvular abnormalities Jonathan Vasquez MD Cardiology Jonathan Vasquez MD Cardiology: 4 cm in diameter Jonathan Vasquez MD Cardiology: 1 00% MALLORIE < 50% on LICA on CTA Jonathan Vasquez MD Cardiology:08/19/24 F /U visit. Now with increasing claudication. Will attempt to open right SFA in retrograde manor. Iliac stents make cross over nearly impossible, especially with aneurysm. She is thin enough that anterograde might be possible. Last visit H ad recent AIF that showed High-grade distal disease left [...] (Clopidogrel) ..... 1 tablet once a day Jonathan Vasquez MD Cardiology:4cm in diameter Ayush Rivera [facility] Cardiology:100% MALLORIE < 50% on LICA on CTA [facility] Cardiology:cessation encouraged [facility] Cardiology:BP 94/67 today this is low, but patient asymptomatic and reports higher at home C ontinue present meds H er updated medication list for this problem includes: Carvedilol 12.5 Mg Tablet (Carvedilol) ..... 1/2 tablet twice a day Lisinopril 40 Mg Tablet (Lisinopril) ..... 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 1 tablet once a day [place] [facility] Cardiology: R enal Duplex 03/21/2024 IMPRESSION: 1 . Abnormal study demonstrating findings consistent with hemodynamically significant proximal renal artery stenosis bilaterally left worse than right. Correlation with contrast-enhanced CTA abdominal aorta/renal arteries c ould be considered for further evaluation. 2 . Incidental abdominal aortic aneurysm with maximum transverse diameter of 3.1 cm. Molly Haley [employer]PERVIS[employer] TELL[employer] Cardiology: w ith history of angioplasty Renal Duplex 03/21/2024 IMPRESSION: 1 . Abnormal study demonstrating findings consistent with hemodynamically significant proximal renal artery stenosis bilaterally left worse than right. Correlation with contrast-enhanced CTA abdominal aorta/renal arteries c ould be considered for further evaluation. 2 . Incidental abdominal aortic aneurysm with maximum transverse diameter of 3.1 cm. Will plan for renal angiogram Molly Haley TANO Cardiology: S he has known JAIME and subclavian stenosis P resents with continued claudication symptoms R >L KIT 03/21/24 A bnormal study demonstrating findings of significant lower extremity arterial occlusive disease right worse t pike left. W ill plan for diagnostic AIF Molly Haley TANO Cardiology: B P today: 99/ P rior BP: 190/84 (03/11/2024) The following medications were removed from the medication list: Nifedipine 30 Mg Tablet Extended Release 24hr (Nifedipine) ..... Take 1 tablet by mouth daily Her updated medication list for this problem includes: Carvedilol 12.5 Mg Tablet (Carvedilol) ..... 1/2 tablet twice a day Lisinopril 40 Mg Tablet (Lisinopril) ..... 1 tablet by mouth once a day Molly Haley TANO Cardiology: T OTAL 105, HDL 44, TRI 87, LDL 44 H er updated medication list for this problem includes: Atorvastatin 40 Mg Tablet (Atorvastatin) ..... Take 1 tablet by mouth once a day Molly Haley TANO Cardiology:cessation encouraged [facility] Cardiology:with hist ory of angioplasty g iven elevated BP will do f/u duplex [facility] Cardiology:will upda te lipid panel H er updated medication list for this problem includes: Atorvastatin 40 Mg Tablet (Atorvastatin) ..... Take 1 tablet by mouth once a day [facility] Cardiology:She has k nown JAIME and subclavian stenosis P resents with claudication symptoms R >L W ill do KIT [facility] Cardiology:BP uncont rolled in office today P [...] 1 tablet by mouth once a day [facility] Cardiology:cessation encouraged [facility] Cardiology: H er updated medication list for this problem includes: Atorvastatin 40 Mg Tablet (Atorvastatin) ..... Take 1 tablet by mouth once a day [facility] Cardiology:controlle d. no orthostatic changes noted on exam H er updated medication list for this problem includes: Carvedilol 12.5 Mg Tablet (Carvedilol) Lisinopril 40 Mg Tablet (Lisinopril) ..... 1 tablet by mouth once a day [facility] Cardiology:Known car otid stenosis with carotid CEA Desirae ocasio her being off balance and falls will update carotid duplex [facility] Cardiology:with recu rrent falls several over the last few months E tiology unclear w ill update carotid to r/o significant stenosis W ill do CT head to r/o acute infarct in setting of recurrent falls and known carotid stenosis W ill update echo to r/o LV dysfunction or valvular abnormalities [facility] Cardiology Jonathan Vasquez MD Cardiology Jonathan Vasquez MD Cardiology Jonathan Vasquez MD Cardiology Jonathan Vasquez MD Cardiology- seen wit h gospel singer: Domi juddrent 1 ppd e ncouraged cessation Ximena Santiago [employer] Cardiology- seen wit h gospel singer: E levated in office today, per patient has been running high this morning 190/100 r pm reviewed and uptrending r adela renal artery duplex Her updated medication list for this problem includes: Carvedilol 12.5 Mg Tablet (Carvedilol) Lisinopril 40 Mg Tablet (Lisinopril) ..... 1 tablet by mouth once a day Ximena Santiago [employer] Cardiology- seen wit h gospel singer: r ica with chronic occlusion l eft ica 50-79% r epeat in 2022 [facility]ena [facility]- seen wit h gospel singer: H er updated medication list for this problem includes: Atorvastatin 40 Mg Tablet (Atorvastatin) ..... Take 1 tablet by mouth once a day [facility]imena [facility]- seen wit h gospel singer: N oted on recent vascular study 10/[address] Thomas. Will monitor and follow. continue statin therapy r epeat in 2022 [facility] Cardiology- seen wit h gospel singer: p atient had stent per Dr. Thomas to left renal artery 10/2021. Remains on asa and plavix. r epeat in 2022 [facility] Cardiology:patient h ad stent per Dr. Thomas to lt renal artery 10/2021. Remains on asa and plavix. [facility] Cardiology:Noted on recent vascular study 10/[address] Thomas. Will monitor and follow. continue statin therapy [facility] Cardiology:remains o n statin therapy H er updated medication list for this problem includes: Atorvastatin 40 Mg Tablet (Atorvastatin) ..... Take 1 tablet by mouth once a day [facility] Cardiology:Elevated today states has been well controlled at home. Will continue present regimen and monitor. H er updated medication list for this problem includes: Carvedilol 12.5 Mg Tablet (Carvedilol) Lisinopril 40 Mg Tablet (Lisinopril) ..... 1 tablet by mouth once a day Mackenziegilberto Rivera [facility] Cardiology Jonathan Vasquez MD Cardiology Jonathan [...] occluded MALLORIE. LICA is patent and has standing rock of mcneal. Jonathan Vasquez MD Cardiology hospital [...] Having pain and weakness left arm. Needs [employer] TRUCK inside stent. Jonathan Vasquez MD Cardiology follow [...] Jonathan Vasquez MD Cardiology Jonathan Vasquez MD new Jonathan Vasquez MD temo Vasquez MD new:S/P left iliac and left mely l stents. Jonathan Vasquez MD temo Vasquez MD temo Vasquez MD f/u leg pain-(KTI) t marycarmen:The Patient was reencouraged to stop [...] PROTHROMBIN TIME WIT H INR LIPID PANEL CBC (INCLUDES DIFF/P LT) BASIC METABOLIC PANE L W/EGFR PROTHROMBIN TIME WIT H INR LIPID PANEL [...] visit add on Jonathan Vasquez MD completed Complex e/m visit add on Jonathan Vasquez [...] - Prof Jonathan Vasquez MD completed SNOMED-CT: 901459520 [id number] Current Medications Documented Jonathan Vasquez MD completed SNOMED-CT: 825163090 269034 Current Medications Documented Jonathan Vasquez MD completed SNOMED-CT: 223778283 713986 Current Medications Documented Jonathan Vasquez MD completed EKG Jonathan Vasquez MD complete d SNOMED-CT: 439312986 191706 Current Medications Documented Jonathan Vasquez MD completed SNOMED-CT: 933218147 Smoking Cessation Counseling Jonathan Vasquez MD completed SNOMED-CT: 343668995 303223 Current Medications Documented Jonathan Vasquez MD completed SNOMED-CT: 936258457 Smoking Cessation Counseling Jonathan Vasquez MD completed SNOMED-CT: 739369349 562302 Current Medications Documented Jonathan Vasquez MD completed Stress EKG Kulwant Jackson MD completed Regadenoson, 4 units Jonathan Vasquez MD completed Cardiolite, 2 units Jonathan Vasquez MD completed SPECT Images Shree Rhoades MD compl eted EKG Richard Humphrey MD completed
--- OUTSIDE RECORDS SUMMARY | 2024-11-12 10:10 | XMS_ITS | Continuity of Care Document ---
Author Organization [facility] Address [address] [place] [address] [address] [place] [address] Phone Care Team Providers Care Senior Bioinformatics Specialist Name Role Phone Michelle Ojeda Unavailable Unavailable Advance Directives Directive Yes / No Effective Date File Name No Information Encounters Encounter Description Practice Location Reason(s) For Visit Diagnoses Date Provider Providers Copied on Encounter [facility], [address], [place], [place], [id number], [place] tel:[phone] [facility] No Information [address] Martinez. [address] , [address], [place], [address], [place]. tel:[phone] Family History Family Member Type Diagnosis Age At Onset No Information Payers Payer name Insurance type Covered green party ID Authoriza tion(s) [employer] SOI CI [id number] Social History Type Description Quantity Date Captured [...]
--- OUTSIDE RECORDS SUMMARY | 2024-11-12 10:10 | XMS_ITS | Clinical Summary ---
Author Organization [facility] Address [address] [place] [address] Phone Care Team Providers Care Exhibit Cleaner Name Role Phone Unavailable Primary Care Provider [...] Tab by mouth 3 times daily. Active Fish Oil-DHA-EPA (FISH OIL) 1,200-144-216 mg Oral Cap Take 1 Cap by mouth 2 times daily. Active aspirin (BRIAN) 81 mg Oral Tab Take 1 Tab by mouth daily. Active nitroglycerin (NITROSTAT) 0.[address] 0.4 mg under tongue 1 time daily as needed. Active metoprolol succinate ER 24 hour (TOPROL-XL) 50 mg Oral tabletIndications:C oronary atherosclerosis of tuscarora coronary artery,Hyperlipidem ia,Hypertension Take 1 Tab by mouth daily. 90 Tab 4 06/15/19 12 Active lisinopril (PRINIVIL) 40 mg Oral tablet Take 2 Tabs by mouth daily. 10 180 Tab 4 08/20/19 13 Active cholecalciferol, vitamin D3, 50 mcg (2,000 unit) Tablet, Chewable Take by mouth. 12/08/19 21 Active atorvastatin (LIPITOR) 40 mg tablet Take by mouth. 09/11/19 20 Active melatonin 5 mg Capsule Take by mouth. 01/13/20 20 Active escitalopram oxalate (LEXAPRO) 5 mg tablet 05/15/20 Active carvediloL (COREG) 12.5 mg tablet Take 12.5 mg by mouth 2 times daily with meals. Active doxycycline hyclate (VIBRAMYCIN) 100 mg capsule Take 1 Capsule by mouth 2 times daily. 10/01/19 25 Active furosemide (LASIX) 20 mg tablet Take 20 mg by mouth daily in the morning. 10/03/19 25 Active acetaminophen 325 mg Capsule Take 2 Tablets by mouth every 4 hours as needed. 09/09/19 25 Active nicotine (NICODERM CQ) 21 mg/24 hr patch Apply 1 Patch to skin as directed every 24 hours. 09/08/19 25 Active NIFEdipine (ADALAT CC) 30 mg Extended Release tablet Take 30 mg by mouth daily. 09/09/19 25 Active pantoprazole (PROTONIX) 20 mg Tablet, Delayed Release (E.C.) Take 20 mg by mouth Continuous as needed. Active LORazepam (ATIVAN) 0.5 mg Oral tablet Take 1 Tab by mouth 1 time daily as needed. 025 Discontinu ed(Patient thought no longer needed) desmopressin (DDAVP) 0.2 mg Tablet Take 0.2 mg by mouth daily at bedtime. 04/26/20 025 Discontinu ed(Patient thought no longer needed) Active Problems Patient Care Coordination No te Formatting of this note migh t be different from the original. 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 Encounters Date Type Department Care Team Description 11/04/2024 Telephone [facility] [address] [place] [id number] Guided Biopsy (Spoke with patient to provide CT guided biopsy info) 10/28/2024 Orders Only [facility] [address] [place] [address] Quique Palomo MD 10/24/2024 12:00 PM CDT Office Visit [facility] [place] [address] [place] [id number] Quique Palomo MD Mass of right lung (Primary Dx); Chronic obstructive pulmonary disease, unspecified COPD type (CMS/HCC) 10/22/2024 External Device Data STL ABSTRACTION Provider, Abstract 10/22/2024 Orders Only [facility] - [address] [place] [address] Quique Palomo MD 10/21/2024 External Device Data STL ABSTRACTION Provider, Abstract 10/14/2024 Orders Only [facility] - [facility] [address] [place] [phone] Quique Palomo MD from Last 3 Months Family History Relation Name Status Comments Father Alive [place] at age 45 Sister Alive [place] at age 39 Social History Tobacco Use [...] on file 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 Gender Identity Not on file Sexual Orientation Not on file Last Filed Vital Signs Vital Sign Reading Time Taken Comments Blood Pressure 156/81 10/24/2024 12:11 PM CDT Pulse 82 10/24/2024 12:02 PM CDT Temperature 36.9 C (98.4 F) 10/24/2024 12:02 PM CDT Respiratory Rate 15 10/24/2024 12:02 PM CDT Oxygen Saturation 90% 10/24/2024 12:02 PM CDT Inhaled Oxygen Concentration - - Weight 58.6 kg (129 lb 3.2 oz) 10/24/2024 12:02 PM CDT Height 157.5 cm (5' 2) 08/16/2012 9:28 AM CDT Body Mass Index - - Plan of Treatment Upcoming Encounters Date Type Department Care Team (Late st Contact Info) Description 11/19/2024 4:30 PM CDT Telephone Check Up [facility] - [place] [address] [facility] [address] [place] [address] Quique Palomo MD [address] [facility] [address] [place] [address] Health Maintenance Due Date Last [...] 2024 9, 03/16/2018, 02/17/2017 BREAST CANCER SCREENING 09/25/2025 09/26/19, 09/25/2024, 06/26/2023, Additional history exists OSTEOPOROSIS SCREENING 09/06/2026 09/06/2021, 2021 PNEUMOCOCCAL VACCINE 50+ YEARS Completed 02/17/2017 , 05/23/2015 Procedures Procedure Name Priority Date/Time Associated Diagnosis Comments CBC WITH AUTODIFFERENTIAL Routine 2024 11:[address] CHEST W CONTRAST Routine 10/20/2024 2 :00 PM CDT COMPREHENSIVE METABOLIC PANEL Routine 10/09/2024 2:27 PM CDT from Last 3 Months Results * CBC WITH AUTODIFFERENTIAL (10/24/2024 11:16 AM CDT) Blood Quique Palomo MD HEMATOLOGY ORDERABLES Final Res ult * CT CHEST W CONTRAST (10/20/2024 2:00 PM CDT) Anatomical Region Laterality Modality Chest Computed Tomogra phy Quique Palomo MD CT ORDERABLES Final Result * COMPREHENSIVE METABOLIC PANEL (10/09/2024 2:27 PM CDT) Blood Quique Palomo MD CHEMISTRY ORDERABLES Final Resu lt from Last 3 Months Insurance MEDICARE PART A AND B [facility] MEDICARE PART A AND B [facility] SUPP
[2024-11-12 10:19] LABS: NT Pro B Type Natriuretic Pept 1720 pg/mL (19.9-100); Troponin I 0.018 ng/mL (0.000-0.034)
[2024-11-12] MEDS: IPRATROPIUM BR 0.02% INH SOLN 0.5 MG/2.5 ML VIAL 1.5 MG INHALATION (11:13)
[2024-11-12] MEDS: ALBUTEROL SULFATE NEB 2.5 MG/3 ML INH 15 MG INHALATION (11:14)
--- OUTSIDE RECORDS SUMMARY | 2024-11-12 12:03 | XMS_ITS | Continuity of Care Document ---
Author Organization [facility] Address [address] [place] [address] [address] [place] [address] Phone Care Team Providers Care Counseling Specialist Name Role Phone Michelle Ojeda Unavailable Unavailable Advance Directives Directive Yes / No Effective Date File Name No Information Encounters Encounter Description Practice Location Reason(s) For Visit Diagnoses Date Provider Providers Copied on Encounter [facility], [address], [place], [place], [id number], [place] tel:[phone] [facility] No Information [address] Lyn[address] Martinez. [address] , [address], [place], [address], [place]. tel:[phone] Family History Family Member Type Diagnosis Age At Onset No Information Payers Payer name Insurance type Covered democrat ID Authoriza tion(s) [employer] SOI CI [id number] Social History Type Description Quantity Date Captured [...]
--- OUTSIDE RECORDS SUMMARY | 2024-11-12 12:03 | XMS_ITS | Clinical Summary ---
Author Organization [facility] Address [address] [place] [address] Phone Care Team Providers Care Combine Driver Name Role Phone Unavailable Primary Care Provider [...] 50 mg Oral tabletIndications:C oronary atherosclerosis of [place] coronary artery,Hyperlipidem [place],Hypertension Take 1 Tab by [...] migh t be different from the original. 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 Encounters Date Type Department Care Team Description 11/04/2024 Telephone [facility] [address] [place] [id number] Guided Biopsy (Spoke with patient to provide CT guided biopsy info) 10/28/2024 Orders Only [facility] [address] [place] [address] Quique Palomo MD 10/24/2024 12:00 PM CDT Office Visit [facility] [place] [address] [address] [place] [id number] Quique Palomo MD Mass of right lung (Primary Dx); Chronic obstructive pulmonary disease, unspecified COPD type (CMS/HCC) 10/22/2024 External Device Data STL ABSTRACTION Provider, Abstract 10/22/2024 Orders Only [facility] - [address] [place] [address] Quique Palomo MD 10/21/2024 External Device Data STL ABSTRACTION Provider, Abstract 10/14/2024 Orders Only [facility] - [facility] [address] [place] [phone] Quique Palomo MD from Last 3 Months Family History Relation Name Status Comments Father Alive [place] at age 45 Sister Alive [place] at age 39 Social History Tobacco Use [...] on file 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
--- OUTSIDE RECORDS SUMMARY | 2024-11-12 12:03 | XMS_ITS | CONTINUITY OF CARE DOCUMENT ---
Author Name rubenjoelle rubenjoelle Address Unknown Organization [facility] Address [address] [place] [address] Phone [phone] Care Team Providers Care Hand Worker Name Role Phone Pedro CROOKS, Jonathan Unavailable MARIA VICTORIA CROOKS, ABDOUL Mathew Unavailable [phone] Stanislaw ANN, Jana Unavailable PROBLEMS Condition Status [...] Unspecified peripheral vascular disease completed - Mackenzie Rivera SPIRAL GEAR GENERATOR CCM Enroll TIA active Jonathan Vasquez MD Dizziness active Jonathan Vasquez MD SYNCOPE AND COLLAPSE active Jonathan Oliveira Sinus bradycardia active Jonathan Vasquez MD Abdominal aortic aneurysm active Mackenzie Randall timiglia SPIRAL GEAR GENERATOR Bilateral renal artery stenosis active Mackenzie Ventimiglia SPIRAL GEAR GENERATOR Lung cancer active Jonathan Vasquez MD Peripheral artery disease active Mackenzie garrett SPIRAL GEAR GENERATOR ENCOUNTERS Date Type Provider Location Encounter Diag nosis - In-person encounter Office Visit Jonathan Vasquez MD [place] [facility] - In-person encounter Office Visit Jonathan Vasquez MD [place] Unspecified peripheral vascular diseasePeripheral artery disease - In-person encounter Office Visit Jonathan Vasquez MD [place] - In-person encounter Office Visit Jonathan Vasquez MD [place] - In-person encounter Office Visit Jonathan Vasquez MD [place] - In-person encounter Office Visit Jonathan Vasquez MD [place] [facility] - In-person encounter Office Visit Jonathan Vasquez MD [facility] Lung cancer - In-person encounter Office Visit Jonathan Vasquez MD [place] [facility] Abdominal aortic aneurysmBilateral renal artery stenosis - In-person encounter Office Visit Jonathan Vasquez MD [place] - In-person encounter Office Visit Jonathan Vasquez MD [place] - In-person encounter Office Visit Jonathan Vasquez MD [place] - In-person encounter Office Visit Jonathan Vasquez MD [place] - In-person encounter Office Visit Jonathan Vasquez MD [place] - In-person encounter Office Visit Jonathan [facility] Sinus bradycardia - In-person encounter Office Visit Jonathan Vasquez MD [place] - In-person encounter Office Visit Jonathan Vasquez MD [place] - In-person encounter Office Visit Jonathan Vasquez MD [place] HyperlipidemiaPHYSICAL EXAMINATIONSYNCOPE AND COLLAPSE - In-person encounter Office Visit Jonathan Vasquez MD [place] - In-person encounter Office Visit Jonathan Vasquez MD [place] - In-person encounter Office Visit Jonathan Vasquez MD [facility] Dizziness - In-person encounter Office Visit Jonathan Vasquez MD [place] TIA - In-person encounter Office Visit Jonathan Vasquez MD [place] CAD - In-person encounter Office Visit Jonathan Vasquez MD [place] Family History of Hypertension:Family History of Hypertension:Carotid artery disease - hx CEAUnspecified peripheral vascular disease - In-person encounter Office Visit Richard Humphrey MD [facility] Office TOBACCO ABUSE VITAL SIGNS Date [...] Vasquez MD blood pressure, cuff size [facility], [facility] 67 mm[Hg] [facility] blood pressure, systolic 99 mm[Hg] Michael[facility] oxygen saturation, oximetry 97 % [facility] respiratory rate E&M 20 /min Jenna Ruiz pulse rate 56 /min [facility] weight E&M 146.6 [lb_av] [facility] height E&M 63 [in_i] [facility] Body Mass Index (Ratio) 25.86 kg/m2 [...] kLog blood pressure, cuff size regular Marcos [facility] blood pressure, diastolic 72 mm[Hg] [facility] blood pressure, systolic 110 mm[Hg] Mike [facility] pulse rate 66 /min [facility] oxygen saturation, oximetry 90 % [facility] respiratory rate E&M 14 /min Christine Mimi iller weight E&M 142 [lb_av] [facility] height E&M 63 [in_i] [facility] Body Mass Index (Ratio) 23.73 kg/m2 Yonatan Vasquez MD blood pressure, cuff size regular [facility] blood pressure, diastolic 80 mm[Hg] [facility], systolic 120 mm[Hg] [facility] pulse rate 67 /min [facility] oxygen saturation, oximetry 95 % [facility] respiratory rate E&M 12 /min [facility] weight E&M 134 [lb_av] Alfa y height E&M 63 [in_i] [facility] y Body Mass Index (Ratio) 23.03 kg/m2 Yonatan Vasquez MD pulse rate 69 /min Ximena cota [employer]USER oxygen saturation, oximetry 96 % Ximena Santiago [employer] respiratory rate E&M 20 /min Ximena Santiago [employer]USER blood pressure, diastolic 98 mm[Hg] Bin Santiago [employer]USER blood pressure, systolic 146 mm[Hg] Danelle Holloway P[employer]USER weight E&M 130 [lb_av] Ximena Zaragozal le [employer]USER height E&M 63 [in_i] Ximena Almendarez le [employer] Body Mass Index (Ratio) 21.11 kg/m2 Yonatan Vasquez MD blood pressure, diastolic -1 mm[Hg] Li nkLogic blood pressure, systolic 142 mm[Hg] Nena kLogdewey blood pressure, diastolic 90 mm[Hg] St darrian [...] blood pressure, diastolic 82 mm[Hg] Ca therine Brooten blood pressure, systolic 175 mm[Hg] Cat herine Brooten oxygen saturation, oximetry 98 % Joana Shakeel pulse rate 61 /min Joana Brooten respiratory rate E&M 16 /min Catheri ne Brooten weight E&M 115 [lb_av] Joana Shakeel blood pressure, cuff size regular Ca therine Brooten height E&M 63 [in_i] Joana Shakeel Body [...] Conchis Loveby pulse rate 76 /min Conchis Elwin oxygen saturation, oximetry 99 % Conchis Loveby weight E&M 138 [lb_av] Conchis Dallin height E&M 63 [in_i] Conchis Loveby Body Mass Index (Ratio) 24.27 kg/m2 Yonatan Vasquez MD blood pressure, diastolic 74 mm[Hg] Antonia Horn blood pressure, systolic 157 mm[Hg] Sarah Horn oxygen saturation, oximetry 94 % Carol Honr respiratory rate E&M 18 /min Bandar Horn [...] elbert weight E&M 140 [lb_av] Milady Mccormick [facility] height E&M 63 [in_i] Milady Mccormick [facility] Body Mass Index (Ratio) 25.15 kg/m2 Yonatan Vasquez MD blood pressure, diastolic 100 mm[Hg] Hans james Rodriguez blood pressure, systolic 176 mm[Hg] Koib charlton Rodriguez respiratory rate E&M 18 /min [...] LinkLogic 0-149 cholesterol, serum 190 mg/dL [facility] [phone]/01/ 05 calcium, serum 10.4 mg/dL [facility] 8.7-10.3 High carbon dioxide, venous blood 27 mmol/L [facility] 20-29 chloride, serum 100 mmol/L [facility] 96-106 potassium, serum 6.1 mmol/L [facility] 3.5-5.2 High sodium, serum 141 mmol/L [facility] [phone]/01/ 05 urea nitrogen/creatini ne ratio, serum 14 [...] Not Estab. platelet count 329 X10E3/UL [facility] [phone]/01/ 05 red blood cell distribution width 13.6 [...] density lipoprotein) ratio 1.6 RATIO [facility] - lipoprotein, beta, serum, point, quantitative, [...] 136.0 - 145.0 creatinine, serum 0.9 mg/dL [facility] 0.5 - 1.0 carbon dioxide, venous blood 26.0 mmol/L [facility] 23.0 - 31.0 calcium, serum 10.3 mg/dL [facility] 8.6 - 10.2 High urea nitrogen, blood 11.0 mg/dL [facility] 8.0 - 23.0 blood glucose, random 95.0 mg/dL [facility] 74.0 - 99.0 red blood cell distribution width, size density 49.1 fL [facility] - immature granulocytes, percentage of total cells, blood 0.3 % [facility] - nucleated red blood cells as percent of blood leukocytes 0.0 % [facility] red blood cell (erythrocyte) count, per high power field 0.0 10*3/UL [facility] eosinophils as percent of blood leukocytes 2.0 % [facility] - neutrophils as percent of blood leukocytes 56.7 % [facility] - Absolute Neutrophils 6.7 CELLS/UL [facility] 1.5 - 7.8 basophils as percent of blood leukocytes 0.7 % [facility] - Absolute Basophils 0.1 CELLS/UL [facility] 0.0 - 0.2 monocytes as percent of blood leukocytes 6.3 % [facility] - Absolute Monocytes 0.7 CELLS/UL [facility] 0.2 - 1.0 lymphocytes as percent of blood leukocytes 34.0 % [facility] - Absolute Lymphocytes 4.0 CELLS/UL [facility] 0.9 - 3.9 High mean platelet volume 10.0 (?) [facility] - platelet count 280.0 THOUSAND/UL LinkLog 100.0 - 400.0 mean corpuscular hemoglobin concentration, RBC 31.8 G/DL LinkLog 31.0 - 38.0 mean corpuscular hemoglobin, RBC 31.0 pg [facility] 25.0 - 35.0 mean corpuscular volume, [...] Mckeon alprazolam 0.25 mg tablet completed [facility] desmopressin 0.2 mg tablet active once a day [facility] carvedilol 12.5 mg tablet active 1/2 tablet twice a day [facility] escitalopram oxalate 5 mg tablet completed once [...] history of marijuana use no Mackenziegilberto Smithmiglia [facility] drug use no Mackenzie Ventimig lali [facility] alcohol use no Mackenzie Ventimig lali [facility] passive cigarette sm breezy exposure no Mackenzie Ventimiglia [facility] smoking/tobacco cess ation, patient education and counseling yes Mackenzie Ventimiglia [facility] number of years as a smoker 40 a Mackenzie Ventimiglia [facility] smoking history, tot al pack/year 40 Mackenzie Ventimiglia [facility] smoking history, tot al pack/day 2 Mackenzie Ventimiglia [facility] cigarette use yes Mackenzie Ventimi glia [facility] smoking status Current every day smoker A shelly Ventimiglia [facility] personal history of marijuana use no Jenna Mckeon drug use no Jenna Mckeon alcohol use no Jenna Lorenzanaiz passive cigarette sm breezy exposure no [facility] smoking/tobacco cess ation, patient education and counseling yes Jenna Mckeon number of years as a smoker 40 a Jenna Lorenzanaiz smoking history, tot al pack/year 40 Jenna Lorenzanaiz smoking history, tot al pack/day 2 Jenna Lorenzanaiz cigarette use yes [facility] smoking status Current every day smoker L grace Mckeon personal history of marijuana use no Mackenzie Ventimiglia [facility] drug use no Mackenzie Ventimig lali [facility] alcohol use no Mackenzie Ventimig lali [facility] passive cigarette sm breezy exposure no Mackenzie Ventimiglia [facility] smoking/tobacco cess ation, patient education and counseling yes Mackenzie Ventimiglia [facility] number of years as a smoker 40 a Mackenzie Ventimiglia [facility] smoking history, tot al pack/year 40 Mackenzie Ventimiglia [facility] smoking history, tot al pack/day 1 Mackenzie Ventimiglia [facility] cigarette use yes Mackenzie Ventimi glia [facility] smoking status Current every day smoker A shelly Ventimiglia [facility] personal history of marijuana use no Mackenzie Ventimiglia [facility] drug use no Mackenzie Ventimig lali [facility] alcohol use no Mackenzie Ventimig lali [facility] passive cigarette sm breezy exposure no Mackenzie Ventimiglia [facility] smoking/tobacco cess ation, patient education and counseling yes Mackenzie Ventimiglia [facility] number of years as a smoker 40 a Mackenzie Ventimiglia [facility] smoking history, tot al pack/year 40 Mackenzie Ventimiglia [facility] smoking history, tot al pack/day 1 Mackenzie Ventimiglia [facility] cigarette use yes Mackenzie Ventimi glia [facility] smoking status Current every day smoker A shelly Ventimiglia [facility] social history reviewed E&M revi ewed - no changes required Jonathan Vasquez MD social history reviewed E&M revi ewed - no changes required Ximena C Pamela [employer] smoking status Current every day smoker Helen Edwardsnikky [employer] drug use no Mackenzie Ventimig lali [facility] alcohol use no Mackenzie Ventimig lali [facility] physical exercise, frequency, days per [...] exercise, frequency, days per week yes Joana Brooten caffeine use, averag e drinks per day no Joana Shakeel passive cigarette sm breezy exposure no Joana Shakeel smoking/tobacco cess ation, patient education and counseling yes Joana Shakeel number of years as a smoker 40 a Joana Shakeel smoking history, tot al pack/year 40 Joana Brooten smoking history, tot al pack/day 1 Joana Brooten cigarette use yes Joana Shakeel smoking status [...] Statu s: Domi hargrove: 2 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 History: P fidel currently smokes every [...] Statu s: Domi hargrove: 2 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 History: P atient currently smokes every [...] Statu s: Domi hargrove: 2 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 History: P atient currently smokes every [...] Statu s: Domi hargrove: 2 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 History: P atient currently smokes every [...] Statu s: Domi hargrove: 2 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 History: P atient currently smokes every [...] Garza smoking history, tot al pack/year 40 Milayd Garza smoking history, tot al pack/day 1 Milady Garza cigarette use yes Milady vega smoking status Current every day smoker K chad Garza social history E&M Marital Statu s: Domi hargrove: 2 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 Jonathan Vasquez MD social history reviewed E&M [...] cess ation, patient education and counseling yes aCrol Horn passive cigarette sm breezy exposure no [...] a smoker 10 years or m [facility] MENTAL STATUS Date Observation Value Provider assessment [...] Payer name Policy type / Coverage type [place] red republican ID [facility] [id number] [place] Medicare [id number] ADVANCE DIRECTIVES Name Date DISCUSSED - NO DECISION MADE TREATMENT PLAN Date Name Performer [id number],SJonathan MD [id number],SJonathan MD [id number],SJonathan MD [id number],SJonathan MD [id number],C, C urrent 1 ppd e ncouraged cessation Ximena Santiago NP [id number],C, E levated in office today, per patient has been running high this morning 190/100 r pm reviewed and uptrending r echeck renal artery duplex Her updated medication list for this problem includes: Carvedilol 12.5 Mg Tablet (Carvedilol) Lisinopril 40 Mg Tablet (Lisinopril) ..... 1 tablet by mouth once a day Ximena Santiago NP [id number],C, r ica with chronic occlusion l eft ica 50-79% r epeat in 2022 Ximena Santiago NP [id number],C, H er updated medication list for this problem includes: Atorvastatin 40 Mg Tablet (Atorvastatin) ..... Take 1 tablet by mouth once a day Ximena Santiago NP [id number],C, N oted on recent vascular study 10/[address] Thomas. Will monitor and follow. continue statin therapy r epeat in 2022 Ximena Santiago NP [id number] p fidel had stent per Dr. Thomas to left renal artery 10/2021. Remains on asa and plavix. r epeat in 2022 Ximena Santiago NP [id number],wilfredo Duron had stent per Dr. Thomas to lt renal artery 10/2021. Remains on asa and plavix. Mackenziegilberto Rivera [facility] [id number],C,N oted on recent vascular study 10/[address] Thomas. Will monitor and follow. continue statin therapy Mackenziegilberto Rivera [facility] [id number],Domir emains on statin therapy H er updated medication list for this problem includes: Atorvastatin 40 Mg Tablet (Atorvastatin) ..... Take 1 tablet by mouth once a day Mackenziegilberto Rivera [facility] [id number],S,E levated today states has been well controlled at home. Will continue present regimen and monitor. H er updated medication list for this problem includes: Carvedilol 12.5 Mg Tablet (Carvedilol) Lisinopril 40 Mg Tablet (Lisinopril) ..... 1 tablet by mouth once a day Mackenzie Amadotrung [facility] [id number],S, Jonathan snyder MD [id number],S, Jonathan snyder MD [id number],S, Jonathan snyder MD [id number],S, Jonathan snyder MD [id number],S, Jonathan snyder MD [id number],SJonathan MD [id number],S, Jonathan snyder MD [id number],SJonathan MD [id number],S, Jonathan snyder MD [id number],SJonathan MD [id number],SJonathan MD [id number],SJonathan MD Take your medication s every day [...] Vasquez MD Cardiology:4cm in diameter Ayush Rivera [facility] Cardiology:100% MALLORIE < 50% on LICA on CTA [facility] Cardiology:cessation encouraged [facility] Cardiology:BP 94/67 today this is low, but patient asymptomatic and reports higher at home C ontinue present meds H er updated medication list for this problem includes: Carvedilol 12.5 Mg Tablet (Carvedilol) ..... 1/2 tablet twice a day Lisinopril 40 Mg Tablet (Lisinopril) ..... 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 1 tablet once a day [facility] Cardiology: R enal Duplex 03/21/2024 IMPRESSION: 1 . Abnormal study demonstrating findings consistent with hemodynamically significant proximal renal artery stenosis bilaterally left worse than right. Correlation with contrast-enhanced CTA abdominal aorta/renal arteries c ould be considered for further evaluation. 2 . Incidental abdominal aortic aneurysm with maximum transverse diameter of 3.1 cm. Molly Haley PACKER FUSER Cardiology: w ith history of angioplasty Renal [...] a day Molly Haley TANO Cardiology:cessation encouraged [facility] Cardiology:with hist ory of angioplasty g iven elevated BP will do f/u duplex [facility] Cardiology:will upda te lipid panel H er updated medication list for this problem includes: Atorvastatin 40 Mg Tablet (Atorvastatin) ..... Take 1 tablet by mouth once a day [place] Ventimiglia [facility] Cardiology:She has k nown JAIME and subclavian stenosis P resents with claudication symptoms R >L W ill do KIT [facility] Cardiology:BP uncont rolled in office today P [...] 1 tablet by mouth once a day [facility] Cardiology:cessation encouraged [facility] Cardiology: H er updated medication list for this problem includes: Atorvastatin 40 Mg Tablet (Atorvastatin) ..... Take 1 tablet by mouth once a day [facility] Cardiology:controlle d. no orthostatic changes noted on exam H er updated medication list for this problem includes: Carvedilol 12.5 Mg Tablet (Carvedilol) Lisinopril 40 Mg Tablet (Lisinopril) ..... 1 tablet by mouth once a day [facility] Cardiology:Known car otid stenosis with carotid CEA Desirae ocasio her being off balance and falls will update carotid duplex [facility] Cardiology:with recu rrent falls several over the last few months E tiology unclear w ill update carotid to r/o significant stenosis W ill do CT head to r/o acute infarct in setting of recurrent falls and known carotid stenosis W ill update echo to r/o LV dysfunction or valvular abnormalities [facility] Cardiology Jonathan Vasquez MD Cardiology Jonathan Vasquez MD Cardiology Jonathan Vasquez MD Cardiology Jonathan Vasquez MD Cardiology- seen wit h nonprofit fundraiser: Domi juddrent 1 ppd e ncouraged cessation Ximena Santiago [employer]USER Cardiology- seen wit h nonprofit fundraiser: E levated in office today, per patient has been running high this morning 190/100 r pm reviewed and uptrending r adela renal artery duplex Her updated medication list for this problem includes: Carvedilol 12.5 Mg Tablet (Carvedilol) Lisinopril 40 Mg Tablet (Lisinopril) ..... 1 tablet by mouth once a day Ximena Santiago [employer]USER Cardiology- seen wit h nonprofit fundraiser: r ica with chronic occlusion l eft ica 50-79% r epeat in 2022 [facility]- seen wit h nonprofit fundraiser: H er updated medication list for this problem includes: Atorvastatin 40 Mg Tablet (Atorvastatin) ..... Take 1 tablet by mouth once a day [facility]ena [facility] Card[facility]- seen wit h nonprofit fundraiser: N oted on recent vascular study 10/[address] Thomas. Will monitor and follow. continue statin therapy r epeat in 2022 [facility] Cardiology- seen wit h nonprofit fundraiser: p atient had stent per Dr. Thomas to left renal artery 10/2021. Remains on asa and plavix. r epeat in 2022 [facility] Domi [facility] Cardiology:patient h ad stent per Dr. Thomas to lt renal artery 10/2021. [facility]. [facility] Cardiology:Noted on recent vascular study 10/[address] Thomas. Will monitor and follow. continue statin therapy [facility] Cardiology:remains o n statin therapy H er updated medication list for this problem includes: Atorvastatin 40 Mg Tablet (Atorvastatin) ..... Take 1 tablet by mouth once a day [facility] Cardiology:Elevated today states has been well controlled at home. Will continue present regimen and monitor. H er updated medication list for this problem includes: Carvedilol 12.5 Mg Tablet (Carvedilol) Lisinopril 40 Mg Tablet (Lisinopril) ..... 1 tablet by mouth once a day Mackenziegilberto Rivera [facility] Cardiology Jonathan Vasquez MD Cardiology [...] Jonathan king MD Cardiology follow up Jonathan ikng MD [...] occluded MALLORIE. LICA is patent and has pokagon of mcneal. Jonathan Vasquez MD Cardiology hospital [...] Having pain and weakness left arm. Needs CLINICAL SALES CONSULTANT inside stent. Jonathan Vasquez MD Cardiology follow [...] Vasquez MD Cardiology Jonathan Vasquez MD Cardiology oJnathan Vasquez MD Cardiology Jonathan Vasquez MD Cardiology [...] - Prof Jonathan Vasquez MD completed SNOMED-CT: 692846032 446346 Current Medications Documented Jonathan Vasquez MD completed SNOMED-CT: 384641221 487073 Current Medications Documented Jonathan Vasquez MD completed SNOMED-CT: 771217346 005637 Current Medications Documented Jonathan Vasquez MD completed EKG Jonathan Vasquez MD complete d SNOMED-CT: 218423407 425189 Current Medications Documented Jonathan Vasuqez MD completed SNOMED-CT: 804648340 Smoking Cessation Counseling Jonathan Vasquez MD completed SNOMED-CT: 593360015 620554 Current Medications Documented Jonathan Vasquez MD completed SNOMED-CT: 444263043 Smoking Cessation Counseling Jonathan Vasquez MD completed SNOMED-CT: 197384302 489079 Current Medications Documented Jonathan Vasquez MD completed Stress EKG Kulwant Jackson MD completed Regadenoson, 4 units Jonathan Vasquez MD completed Cardiolite, 2 units Jonathan Vasquez MD completed SPECT Images Shree Rhoades MD compl eted EKG Richard Humphrey MD completed
--- NOTE | 2024-11-12 12:18 | ED_ITS ---
HPI - SOB/Dyspnea General Chief Complaint: Shortness of Breath/Dyspnea Stated Complaint: LO O2 SATS PRE PROCEDURE Time Seen by Provider: 11/12/24 09:33 History of Present Illness HPI Narrative: Patient is a 73-year-old female who presents ER with low O2 saturation from Radiology. She was supposed to have a procedures today to biopsy her lung for cancer but her O2 saturations were low. She does not wear oxygen. No fevers or chills or sweats. No chest pain her home no new productive cough. She does have exertional dyspnea from Related Data Home Medications ?Medication ?Instructions ?Recorded ?Confirmed ?Last Taken ?Type desmopressin 0.2 mg tablet 0.2 mg PO HS 02/20/22 11/12/24 11/11/24 History melatonin 5 mg capsule 5 mg PO QHS 08/29/22 11/12/24 11/11/24 History Allergies Allergy/AdvReac Type Severity Reaction Status Date / Time Penicillins Allergy Severe BREATHING Verified 11/12/24 10:43 DIFFICULTY, SWELLING Review of Systems 2 Review of Systems: All systems reviewed & are unremarkable except as noted in HPI and below Constitutional: Constitutional: Reports no additional constitutional complaints ENT: Reports system reviewed and no additional complaints, except as documented Cardiovascular: Cardiovascular: Reports no additional cardiovascular complaints Respiratory: Respiratory: Reports no additional respiratory complaints Gastrointestinal: Gastrointestinal: Reports no additional gastrointestinal complaints Genitourinary: Genitourinary: Reports no additional female genitourinary complaints [facility] Past Medical History Medical History ) Osteoporosis History of radiation therapy right lower lobe 2022 Malignant neoplasm of lower lobe, right bronchus or lung COPD (chronic obstructive pulmonary disease) with acute bronchitis Depression History of TIA (transient ischemic attack) Dyslipidemia HTN (hypertension) Anxiety GERD (gastroesophageal reflux disease) Surgical History Surgical History ) History of cholecystectomy History of total hysterectomy with bilateral salpingo-oophorectomy (BSO) Social History Social History ) Smoking packs per day: 1.5 Smoking cigarettes per day: 30.0 Years smoked: 40 Smoking pack-years: 60.00 Smoking status: Current every day smoker Tobacco type: cigarettes Additional smoking assessment comments: weaning off cigarettes Alcohol intake: never Substance use: never Substance use type: does not use Lack of Transportation: No Lack of Food: Never True Current Housing: I Have Housing Concerned About Future Housing: No Difficulty Paying Gas/Electric Bills: No Difficulty Paying for Meds: No Currently Unemployed: No Education: High School Diploma/GED Difficulty w/ Childcare or Family Care: No Living arrangements: alone Occupation/Education: retired Gender identity (if verbalized by the patient): Female Sexual Orientation (if Verbalized by the Patient): Straight or Heterosexual Spiritual care concerns: No Exam 2 Narrative: GENERAL: Frail/thin appearing, and in no acute distress. HEAD: Normocephalic, atraumatic. ENT: Mucous membranes moist. NECK: Supple. CHEST: Diminished throughout posterior lung hall. Anteriorly patient does have some coarse respirations bilaterally.. No respiratory distress. HEART: Regular rate and rhythm. Normal peripheral pulses. ABDOMEN: Soft, nontender, nondistended. EXTREMITIES: Normal range of motion. No edema. SKIN: Warm, dry, no rash. NEURO: Alert and oriented x3. PSYCH: Normal mood and affect. Course Course Emergency Course: I have interviewed and examined the patient. I have determined that the patient has the capacity to understand the information relevant to their care. The patient also understands the consequences of the various options after we discussed relevant information. I feel that the patient is able to understand the relevant information and responds appropriately to questions. I have attempted to persuade the patient to stay to receive care. The patient understands by leaving there is a possibility of , disability, or serious injury. Despite the above information the patient has made the decision to leave against medical advice. I have attempted to persuade the patient to follow up with a physician DAVID. I have also notified the patient they may return at any time to the ED for further care. Patient reports he is in the middle of a move. She refuses the stay in the hospital. She refuses to be worked up for home oxygen. Possible pneumonia on x-ray with white count. Patient has been treated outpatient but refuses to be admitted. Vital Signs Vital signs: Vital Signs Temperature 98.3 F 11/12/24 09:27 Pulse Rate 82 11/12/24 09:27 Respiratory Rate 18 11/12/24 09:27 Blood Pressure 172/58 H 11/12/24 09:27 Pulse Oximetry 93 11/12/24 09:27 Oxygen Delivery Nasal Cannula 11/12/24 09:27 Oxygen Flow Rate 2 11/12/24 09:27 Temperature 98.3 F 11/12/24 09:27 Pulse Rate 90 11/12/24 12:39 Respiratory Rate 26 H 11/12/24 12:39 Blood Pressure 170/55 H 11/12/24 12:39 Pulse Oximetry 90 11/12/24 12:39 Oxygen Delivery Nasal Cannula 11/12/24 09:49 Oxygen Flow Rate 2 11/12/24 09:49 MDM - SOB/Dyspnea Lab Data 11/12/24 09:42 11/12/24 09:42 Labs: Lab Results 11/12/24 11/12/24 Range/Units 09:42 09:43 WBC 13.4 H (4.5-10.0) K/mm3 RBC 4.45 (4.2-5.4) M/mm3 Hgb 13.3 (12.0-15.0) g/dL Hct 43.5 (37.0-47.0) % MCV 97.8 (80-100) fl MCH 29.9 (26-34) pg MCHC 30.6 L (32-36) g/dl RDW 15.2 H (11.5-14.5) % Plt Count 245 (150-375) k/mm3 MPV 9.0 (7.4-10.4) fl Immature Gran % (Auto) 0.4 (0-0.5) % Neut % (Auto) 75.6 H (45.5-73.1) % Lymph % (Auto) 13.8 L (18.3-44.2) % [place] % (Auto) 8.7 H (2.6-8.5) % Eos % (Auto) 1.2 (0-4.4) % Baso % (Auto) 0.3 (0.2-1.2) % Lymph # (Auto) 1.85 (0.9-3.2) K/mm3 [place] # (Auto) 1.2 H (0.1-0.6) K/mm3 Eos # (Auto) 0.2 (0-0.3) K/mm3 Baso # (Auto) 0.0 (0.0-0.1) K/mm3 Abs Immat Gran (auto) 0.06 H (0.00-0.031) K/mm3 Absolute Neuts (auto) 10.1 H (1.3-6.7) K/mm3 Absolute Nucleated RBC 0.000 (0.0-0.012) K/mm3 Nucleated RBC % 0.0 (0.0-0.2) % PT 14.6 (11.1-14.7) Seconds INR 1.1 APTT 28.7 (22.3-36.8) Seconds Sodium 138 (137-145) mmol/L Potassium 3.5 (3.4-5.0) mmol/L Chloride 105 (98-107) mmol/L Carbon Dioxide 27 (22-30) mmol/L Anion Gap 6 (4-12) mmol/L BUN 9 D (7-17) mg/dL Creatinine 0.85 (0.7-1.0) mg/dL Estim Creat Clear Calc 44 ml/min Estimated GFR > 60 (59 - ) Glucose 103 (65-110) mg/dL Calcium 8.5 (8.4-10.2) mg/dL Total Bilirubin 0.8 (0.2-1.3) mg/dL AST 25 (14-36) U/L ALT 20 (6-35) U/L Alkaline Phosphatase 104 (38-126) U/L Troponin I 0.018 (0.000-0.034) ng/mL NT-Pro-B Natriuret Pep 1720 H (19.9-100) pg/mL Total Protein 7.0 (6.3-8.2) g/dL Albumin 3.5 (3.5-5.1) g/dL Imaging Data Radiologist's impression: ITS Impressions Chest X-Ray 11/12/24 10:49 IMPRESSION: 1. Severe emphysema with increasing interstitial and groundglass opacities in the right mid to lower lung zone and at the left lung base which could represent pneumonia, pulmonary edema or combination thereof. 2. Masslike opacity in the posterior medial right lower lung zone concerning for malignancy. ECG Data EKG #1: ECG completion date: 11/12/24 ECG completion time: 09:30 EKG Interpretation: normal rate (81), sinus rhythm, ST depression, normal QRS and normal QT Discharge Plan Discharge Clinical Impression: Hypoxia, COPD (chronic obstructive pulmonary disease) Patient Disposition: Left Against Medical Advice Condition: Serious Patient Language: Polish Prescriptions: No Action desmopressin 0.2 mg tablet 0.2 mg PO HS Trelegy Ellipta 200-62.5-25 mcg blister with device 1 inh inhalation DAILY Qty: 60 0RF Airsupra 90-80 mcg/actuation HFA aerosol inhaler 2 inh inhalation QID PRN (Reason: shortness of breath and cough) Qty: 10.7 0RF Rx Instructions: may repeat up to 6 doses per day (12 inhalations) azithromycin 250 mg tablet See Rx Instructions PO .COMPLEX Qty: 6 0RF Rx Instructions: take 500 mg today (day 1), then 250 mg for 4 days (days 2-5) PO methylprednisolone [Medrol (Gray)] 4 mg tablets,dose pack See Rx Instructions PO PER PKG DIR Qty: 21 0RF Rx Instructions: PO PER PKG DIR melatonin 5 mg capsule 5 mg PO QHS lisinopril 40 mg tablet 40 mg PO QAM 90 Days Qty: 90 1RF carvedilol 12.5 mg tablet 6.25 mg PO BID 90 Days Qty: 90 1RF clopidogrel [Plavix] 75 mg tablet 75 mg PO DAILY Qty: 90 1RF Patient Comments: HOLD for 5 days prior atorvastatin 40 mg tablet 40 mg PO DAILY 90 Days Qty: 90 1RF pantoprazole 20 mg tablet,delayed release (DR/EC) 20 mg PO QAM PRN (Reason: Indigestion) Qty: 90 1RF escitalopram oxalate 10 mg tablet 10 mg PO HS Qty: 90 1RF furosemide 20 mg tablet 20 mg PO QAM Qty: 90 0RF Follow-up/Referrals: Jana Aguiar PA-C [Primary Care Provider] -
--- NOTE | 2024-11-12 12:35 | PC.NURSE ---
This RN went to check on pt, Pt said she did not want to finish albuterol tx or wear the NC at this time and would like to go home. Pt O2 dropped to 83% when O2 was off. Pt states she is not feeling SOB. Placed pt back on 2L NC at this time and patient O2 went back up to 94%. ED physician notified of pt O2 levels. No new orders at this time.
== END 2024-11-12 13:15 | disposition left against medical advice (07) ==
PROVIDERS: Emergency Provider Emergency Medicine; PCP Physician Assistant Medical
DX: J43.9 Emphysema, unspecified (principal); R06.02 Shortness of breath; R91.8 Other nonspecific abnormal finding of lung field; I10 Essential (primary) hypertension; E78.5 Hyperlipidemia, unspecified; K21.9 Gastro-esophageal reflux disease without esophagitis; M81.0 Age-related osteoporosis without current pathological fracture; F41.9 Anxiety disorder, unspecified; F32.A Depression, unspecified; F17.210 Nicotine dependence, cigarettes, uncomplicated; Z85.118 Personal history of other malignant neoplasm of bronchus and lung; Z92.3 Personal history of irradiation; Z86.73 Personal history of transient ischemic attack (TIA), and cerebral infarction without residual deficits; Z90.49 Acquired absence of other specified parts of digestive tract; Z90.710 Acquired absence of both cervix and uterus; Z90.79 Acquired absence of other genital organ(s); Z90.722 Acquired absence of ovaries, bilateral; Z79.899 Other long term (current) drug therapy; Z79.02 Long term (current) use of antithrombotics/antiplatelets; R94.31 Abnormal electrocardiogram [ECG] [EKG]; I51.7 Cardiomegaly
CPT/HCPCS: 36415; 71046; 80053; 83880; 84484; 85025; 85610; 85730; 93005; 94640; 99284

== ENCOUNTER 2024-11-13 17:37 | Inpatient (IN) | payer MEDICARE, SELFPAY ==
[2024-11-13] VITALS (11 sets, daily range): BP systolic 162–197; BP diastolic 52–76; PULSE 69–87; RESP 16–24; TEMP 37.2; O2SAT 82–100
--- NOTE | ~2024-11-13 | XR_ITS ---
XR chest 1V portable Ordering provider: Shelly Chatterjee APRN History: 73 years Female with . shortness of breath . Comparison: November 12, 2024 FINDINGS: MEDIASTINUM: The cardiac silhouette is not enlarged. Prominent right hilum is seen with possibility o f a mass in the area cannot be excluded. CT evaluation advised. LUNGS: No effusions or pneumothorax. Bilateral interstitial changes. Superimposed pneumonitis in the right lung is not excluded. OTHER: No free air under the diaphragm. IMPRESSION: Prominent right hilum is noted. Further evaluation to exclude underlying mass is advised. Fibrotic/emphysematous changes of the lungs with possible superimposed pneumonitis on the right side. Reviewed, dictated and finalized at location A. IMPRESSION: Prominent right hilum is noted. Further evaluation to exclude underlying mass i s advised. Fibrotic/emphysematous changes of the lungs with possible superimposed pneumoni tis on the right side.
--- NOTE | ~2024-11-13 | XR_ITS ---
Supine and upright views of the abdomen Clinical history: Constipation Findings: Bowel gas pattern is nonspecific. No evidence for obstruction or free air. No abnormal mass lesion or calcification is seen. Vascular stents are present in the bilateral iliac regions Osseous structures are intact. Impression: Nonspecific bowel gas pattern. Reviewed, dictated and finalized at [facility]. Impression: Nonspecific bowel gas pattern.
--- NOTE | ~2024-11-13 | XR_ITS ---
CHEST RADIOGRAPH CLINICAL HISTORY: shortness of breath and coarse breath sounds . COMPARISON: Reference is made to multiple prior chest radiographs performed most recently on and dating back to 07/21/2022. TECHNIQUE: Single portable view of the chest. FINDINGS The cardiomediastinal silhouette is unremarkable. Severe panlobular emphysematous disease is noted with interstitial thickening and asymmetric lucency. Redemonstration of a right lower lobe asymmetry, with diaphragmatic interruption on frontal view. No focal infiltrate is present. No pleural effusion is noted. IMPRESSION: Severe panlobular emphysematous disease without focal infiltrate or effusion. Redemonstration of a right lower lobe asymmetry by secondary signs on frontal view. Reviewed, dictated and finalized at location A. IMPRESSION: Severe panlobular emphysematous disease without focal infiltrate or effusion. Redemonstration of a right lower lobe asymmetry by secondary signs on frontal v iew.
--- NOTE | ~2024-11-13 | CT_ITS ---
CTA chest PE protocol Ordering provider: Shelly Chatterjee APRN History: 73 years Female with . shortness of breath . Comparison: October 20, 2024 Technique: CT angiogram chest was performed following timed intravenous injection of contrast. Thin s lice axial images and reformatted coronal images were obtained. Three dimensional reformatted images of the chest were also obtained using a [employer] renal workstation. . Automated exposure control and iterati ve reconstruction technique were employed. The dose-length product was 246.96 mGy-cm. 100 mL Omnipaqu e 350 was given IV. Findings: PULMONARY ARTERIES: No pulmonary embolus. VISUALIZED THORACIC INLET: Normal. MEDIASTINUM: Aorta/coronary arteries: Mild atheromatous disease. Heart/other: The heart is not enlarged. Lymph nodes: Prevascular lymphadenopathy is seen with the largest measures 1.6 cm. Bilateral hilar ly mphadenopathy more in the right side. Subcarinal calcified lymph notes. Calcified lymph node in the l eft hilum. LUNGS: Emphysematous changes of the lungs. A mass is seen in the right lower lobe measuring 4.1 x 2.9 cm. Fu rther evaluation advised. Smaller nodule is seen medially in the right lower lobe measuring 1.4 cm. M inimal interstitial opacification is seen in the right middle lobe and right upper lobe. Interstitial opacification also seen around the mass in the right lower lobe. Minimal interstitial opacification the left lung base. Right pleural effusion. No pulmonary nodules . No pneumothorax. VISUALIZED UPPER ABDOMEN: Proximal abdominal aorta measures 3 cm. Stent is seen in the left renal art gokul. Status post cholecystectomy. Slightly prominent pancreatic duct. Prominent CBD measuring 1.1 cm. . Otherwise, the visualized upper abdomen is normal. MUSCULOSKELETAL: Soft tissues: The superficial soft tissues are normal. Bones: Age appropriate degenerative changes of the spine. Increased kyphosis. Osteopenia of the bones . IMPRESSION: 1. No pulmonary embolism. 2. Mass measuring 4.1 x 2.9 cm in the right lower lobe. Further evaluation advised. Smaller nodule i s seen adjacent to this mass in the right lower lobe area. 3. interstitial and alveolar opacification in the right middle , lower and upper lobes and left low er lobe suggestive of pneumonitis. 4. Extensive emphysematous changes seen bilaterally. 5. Right hilar and mediastinal lymphadenopathy. 6. The proximal abdominal aorta measures 3 cm. Reviewed, dictated and finalized at location A. IMPRESSION: 1. No pulmonary embolism. 2. Mass measuring 4.1 x 2.9 cm in the right lower lobe. Further evaluation adv ised. Smaller nodule is seen adjacent to this mass in the right lower lobe area . 3. interstitial and alveolar opacification in the right middle , lower and up per lobes and left lower lobe suggestive of pneumonitis. 4. Extensive emphysematous changes seen bilaterally. 5. Right hilar and mediastinal lymphadenopathy. 6. The proximal abdominal aorta measures 3 cm.
--- OUTSIDE RECORDS SUMMARY | 2024-11-13 17:39 | XMS_ITS | Clinical Summary ---
Author Organization [facility] Address [address] [place] [address] Phone Care Team Providers Care Hammer Operator Name Role Phone Unavailable Primary Care Provider [...] 50 mg Oral tabletIndications:C oronary atherosclerosis of prairie band coronary artery,Hyperlipidem ia,Hypertension Take 1 Tab by [...] migh t be different from the original. Manager Transportation - Dr Christian Ascencio Problem Noted Date Diagnosed Date Coronary atherosclerosis of prairie band coronary martin ry 11/25/2010 Overview (08/16/2012): 1989 [...] LDL 140 triglyceride 121, normal AST/ALT 07/13 [id number] HDL 43 LDL 100 triglyceride 115, normal AST/ALT 04/05 cholesterol 213 HDL 38 LDL 150 triglyceride 125 COPD (chronic obstructive pulmonary disease) Overview (04/05/2011): 03/[address]: severe rosa emphysema, RLL honeycombing, celiac/SMA /renal artery atherosclerosis, no PE/aortic disease, left hydronephrosis,... Encounters Date Type Department Care Team Description 11/04/[address] [facility] Oncology and Hematology [facility] [address] [place] [phone] Guided Biopsy (Spoke with patient to provide CT guided biopsy info) 10/28/[address] [facility] Oncology and Hematology [address] [place] [address] Quique Palomo MD 10/24/2024 12:00 PM CDT Office Visit [facility] Oncology and Hematology [place] [address] [place] [phone] Quique Palomo MD Mass of right lung (Primary Dx); Chronic obstructive pulmonary disease, unspecified COPD type (CMS/HCC) 10/22/2024 External Device Data STL ABSTRACTION Provider, Abstract 10/22/[address] [facility] Oncology and Hematology - [place] [address] [place] [address] Quique Palomo MD 10/21/2024 External Device Data STL ABSTRACTION Provider, Abstract 10/14/[address] 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 Oncology and Hematology - [place] [address] [facility] [address] [place] [address] Quique Palomo MD [address] [facility] [address] [place] [address] Health Maintenance Due Date Last [...] Months Insurance MEDICARE PART A AND B [facility] MEDICARE PART A AND B [facility] SUPP
--- OUTSIDE RECORDS SUMMARY | 2024-11-13 17:39 | XMS_ITS | Continuity of Care Document ---
Author Organization [facility] Address [address] [place] [address] [address] [place] [address] Phone Care Team Providers Care Corporate Real Estate Manager Name Role Phone Michelle Ojeda Unavailable Unavailable Advance Directives Directive Yes / No Effective Date File Name No Information Encounters Encounter Description Practice Location Reason(s) For Visit Diagnoses Date Provider Providers Copied on Encounter [facility], [address], [place], [place], [id number], [place] tel:[phone] [facility] No Information [address] , [address], [place], [address], [place]. tel:[phone] Family History Family Member Type Diagnosis Age At Onset No Information Payers Payer name Insurance type Covered democrat ID Authoriza tion(s) [employer] SOI CI [id number] Social History Type Description Quantity Date Captured [...]
--- NOTE | 2024-11-13 18:00 | ECG_ITS ---
Test Date: 2024-11-13 20:21:05 Measurements Intervals [place] Rate: 76 P: 65 DE: 135 QRS: 26 QRSD: 101 T: 69 QT: 434 QTc: 491 Interpretive Statements SINUS RHYTHM DELAYED PRECORDIAL R/S TRANSITION ST-T WAVE ABNORMALITY IN LAT/HIGH LAT LEADS- CONSIDER ISCHEMIA BASELINE ARTIFACT- I, II, III, AVR, AVL, AVF, V1-V6 ABNORMAL ECG Compared to ECG 11/12/2024 09:30:55 NO SIGNIFICANT CHANGE Electronically Signed On 11-13-2024 20:59:32 CDT by Sj Vang D.O.
--- NOTE | 2024-11-13 18:02 | ED.SOB ---
HPI - SOB/Dyspnea General Chief Complaint: Shortness of Breath/Dyspnea <Shelly Chatterjee APRN - Last Filed: 11/13/24 22:52> Stated Complaint: sob <Shelly Chatterjee APRN - Last Filed: 11/13/24 22:52> Time Seen by Provider: 11/13/24 17:42 <Shelly Chatterjee APRN - Last Filed: 11/13/24 22:52> History of Present Illness HPI Narrative: Patient is a 73-year-old female who presents to the ER with shortness of breath. She reports she was here yesterday and was advised to be admitted but she reports ?I just did not want to, so she was discharged home. Patient reports her symptoms have worsened and she was feeling short of breath prior to arrival. She reports she called EMS who put her on a oxygen due to her low oxygen saturations upon their arrival. Patient reports her symptoms of worsened over the past 2 months following a fall. The she reports she was supposed to have along biopsy yesterday but they were unable to perform the procedure due to her low oxygen saturations. She also endorses recent increased cough and congestion. Patient denies any recent fevers, chest pain, back pain, or headache. She endorses history of COPD and high blood pressure. Patient's chart indicates she is on blood thinners. <Shelly Chatterjee APRN - Last Filed: 11/13/24 22:52> Related Data Home Medications: Home Medications ?Medication ?Instructions ?Recorded ?Confirmed ?Last Taken ?Type desmopressin 0.2 mg tablet 0.2 mg PO HS 02/20/22 11/12/24 11/11/24 History melatonin 5 mg capsule 5 mg PO QHS 08/29/22 11/12/24 11/11/24 History <Shelly Chatterjee APRN - Last Filed: 11/13/24 22:52> Allergies/Adverse Reactions: Allergies Allergy/AdvReac Type Severity Reaction Status Date / Time Penicillins Allergy Severe BREATHING Verified 11/14/24 01:12 DIFFICULTY, SWELLING <Shelly Chatterjee APRN - Last Filed: 11/13/24 22:52> Review of Systems Review of Systems: All systems reviewed & are unremarkable except as noted in HPI and below <Shelly Chatterjee APRN - Last Filed: 11/13/24 22:52> [facility] Past Medical History Medical History: Medical History (Updated 11/13/24 @ 22:52 by Shelly Chatterjee APRN) Chronic obstructive pulmonary disease Transient ischemic attack Gastroesophageal reflux disease Hypertension Osteoporosis History of radiation therapy right lower lobe 2022 Malignant neoplasm of lower lobe, right bronchus or lung Depression Dyslipidemia Anxiety <Shelly Chatterjee APRN - Last Filed: 11/13/24 22:52> Surgical History Surgical History: Surgical History History of cholecystectomy History of total hysterectomy with bilateral salpingo-oophorectomy (BSO) <Shelly Chatterjee APRN - Last Filed: 11/13/24 22:52> Social History Social History: Social History (Updated 11/13/24 @ 22:08 by Jacqui Shen PA-C) Social History: Surrogate medical decision maker: Code status: Full code. Smoking packs per day: 2 Smoking cigarettes per day: 40.0 Years smoked: 40 Smoking pack-years: 80.00 Smoking status: Current every day smoker Tobacco type: cigarettes Additional smoking assessment comments: weaning off cigarettes Alcohol intake: former Drinks per week: 5 Substance use: never Substance use type: does not use Do You Feel Safe in your Home?: Yes Lack of Transportation: No Lack of Food: Never True Current Housing: I Have Housing Concerned About Future Housing: No Difficulty Paying Gas/Electric Bills: No Difficulty Paying for Meds: No Currently Unemployed: No Education: Don't Know Difficulty w/ Childcare or Family Care: No Living arrangements: alone Occupation/Education: retired Spiritual care concerns: No <Shelly Chatterjee APRN - Last Filed: 11/13/24 22:52> Exam Narrative: GENERAL: Well appearing, well-nourished, non-toxic, in no acute distress. HEAD: Normocephalic, atraumatic. NECK: Supple. No adenopathy, no masses. RESPIRATORY: Airway patent, respirations nonlabored. Positive rhonchi and rales in all lobes. CARDIOVASCULAR: Regular rate and rhythm without murmurs, rubs, or gallops. Peripheral pulses 2+ and equal bilaterally. ABDOMINAL: Soft, nontender, nondistended, no hepatosplenomegaly. Normoactive BS. MUSCULOSKELETAL: Moves all extremities. Strength/ROM intact without gross deformities. SKIN: Warm, dry, normal color. No rashes. NEURO: A&O X3. Speech clear. Cranial nerves II-XII intact. No ataxic movements. PSYCHIATRIC: Appropriate mood and affect. Normal interaction. <Shelly Chatterjee APRN - Last Filed: 11/13/24 22:52> Course PAPERHANGER PIPE/PA Physician Supervision This visit was performed by both a physician and an APC. I performed all aspects of the MDM as documented. <Lazaro Begum MD - Last Filed: 11/14/24 02:08> Vital Signs Vital signs: Vital Signs Temperature 99 F 11/13/24 17:46 Pulse Rate 81 11/13/24 17:46 Respiratory Rate 20 11/13/24 17:46 Blood Pressure 168/52 H 11/13/24 17:46 Pulse Oximetry 82 L 11/13/24 17:46 Oxygen Delivery Room Air 11/13/24 17:46 Temperature 98.0 F 11/14/24 01:05 Pulse Rate 81 11/14/24 01:05 Respiratory Rate 18 11/14/24 01:05 Blood Pressure 92/60 L 11/14/24 01:05 Pulse Oximetry 93 11/14/24 01:05 Oxygen Delivery Nasal Cannula 11/13/24 18:05 Oxygen Flow Rate 2 11/13/24 18:05 <Shelly Chatterjee APRN - Last Filed: 11/13/24 22:52> Vital Signs Temperature 99 F 11/13/24 17:46 Pulse Rate 81 11/13/24 17:46 Respiratory Rate 20 11/13/24 17:46 Blood Pressure 168/52 H 11/13/24 17:46 Pulse Oximetry 82 L 11/13/24 17:46 Oxygen Delivery Room Air 11/13/24 17:46 Temperature 98.0 F 11/14/24 01:05 Pulse Rate 81 11/14/24 01:05 Respiratory Rate 18 11/14/24 01:05 Blood Pressure 92/60 L 11/14/24 01:05 Pulse Oximetry 93 11/14/24 01:05 Oxygen Delivery Nasal Cannula 11/13/24 18:05 Oxygen Flow Rate 2 11/13/24 18:05 <Lazaro Begum MD - Last Filed: 11/14/24 02:08> MDM - SOB/Dyspnea MDM Narrative Medical decision making narrative: Patient is a 73-year-old female who presents to the ER with shortness of breath. She reports she was here yesterday and was advised to be admitted but she reports ?I just did not want to, so she was discharged home. Patient reports her symptoms have worsened and she was feeling short of breath prior to arrival. She reports she called EMS who put her on a oxygen due to her low oxygen saturations upon their arrival. Patient reports her symptoms of worsened over the past 2 months following a fall. The she reports she was supposed to have along biopsy yesterday but they were unable to perform the procedure due to her low oxygen saturations. She also endorses recent increased cough and congestion. Patient denies any recent fevers, chest pain, back pain, or headache. She endorses history of COPD and high blood pressure. Patient's chart indicates she is on blood thinners. Labs Ordered: CBC, CMP, PTT, INR, lactic acid, magnesium, ABG, troponin Imaging Ordered: CT PE scan Medications Ordered: 1.6 L NS IV bolus, Azithromycin IV 500mg, Methylprednisone 125mg IV, duo neb Results: Pt's CT scan indicates 1. No pulmonary embolism. 2. Mass measuring 4.1 x 2.9 cm in the right lower lobe. Further evaluation advised. Smaller nodule is seen adjacent to this mass in the right lower lobe area. 3. interstitial and alveolar opacification in the right middle , lower and upper lobes and left lower lobe suggestive of pneumonitis. 4. Extensive emphysematous changes seen bilaterally. 5. Right hilar and mediastinal lymphadenopathy. 6. The proximal abdominal aorta measures 3 cm. Diagnosis: shortness of breath, pneumonia Consults: oncology ([place]) Patient Education/Shared MDM: Results of lab work and imaging shared with patient. She endorses improvement of symptoms following duo neb administration. It was advised patient be admitted to the hospital for further evaluation and treatment. Pt verbalized understanding and is in agreement with plan. 2200- Spoke with hospitalist, Jacqui Shen PA-C, who was in agreement with plan for admission. She will be admitted to the med/surg floor. Pt will be NPO at midnight in hopes pt can get a biopsy of her lung tomorrow morning. <Shelly Chatterjee APRN - Last Filed: 11/13/24 22:52> Differential Diagnosis Differential diagnosis: Likely acute exacerbation of chronic obstructive airways disease, congestive heart failure, community acquired pneumonia and pulmonary embolism <Shelly Chatterjee APRN - Last Filed: 11/13/24 22:52> Lab Data Attestation: I reviewed the patient's lab results. <Shelly Chatterjee APRN - Last Filed: 11/13/24 22:52> Result diagrams: 11/13/24 18:07 11/13/24 18:07 <Shelly Chatterjee APRN - Last Filed: 11/13/24 22:52> Labs: Lab Results 11/13/24 11/13/24 11/13/24 Range/Units 18:06 18:07 18:21 WBC 14.5 H (4.5-10.0) K/mm3 RBC 4.37 (4.2-5.4) M/mm3 Hgb 13.3 (12.0-15.0) g/dL Hct 42.3 (37.0-47.0) % MCV 96.8 (80-100) fl MCH 30.4 (26-34) pg MCHC 31.4 L (32-36) g/dl RDW 15.2 H (11.5-14.5) % Plt Count 233 (150-375) k/mm3 MPV 9.0 (7.4-10.4) fl Immature Gran % (Auto) 0.5 (0-0.5) % Neut % (Auto) 77.5 H (45.5-73.1) % Lymph % (Auto) 12.1 L (18.3-44.2) % Rapides % (Auto) 8.9 H (2.6-8.5) % Eos % (Auto) 0.7 (0-4.4) % Baso % (Auto) 0.3 (0.2-1.2) % Lymph # (Auto) 1.75 (0.9-3.2) K/mm3 Rapides # (Auto) 1.3 H (0.1-0.6) K/mm3 Eos # (Auto) 0.1 (0-0.3) K/mm3 Baso # (Auto) 0.0 (0.0-0.1) K/mm3 Abs Immat Gran (auto) 0.07 H (0.00-0.031) K/mm3 Absolute Neuts (auto) 11.2 H (1.3-6.7) K/mm3 Absolute Nucleated RBC 0.000 (0.0-0.012) K/mm3 Nucleated RBC % 0.0 (0.0-0.2) % PT 14.0 (11.1-14.7) Seconds INR 1.1 APTT 29.6 (22.3-36.8) Seconds Sodium 135 L (137-145) mmol/L Potassium 3.3 L (3.4-5.0) mmol/L Chloride 102 (98-107) mmol/L Carbon Dioxide 25 (22-30) mmol/L Anion Gap 8 (4-12) mmol/L BUN 10 (7-17) mg/dL Creatinine 0.89 (0.7-1.0) mg/dL Estim Creat Clear Calc 42 ml/min Estimated GFR > 60 (59 - ) Glucose 101 (65-110) mg/dL Lactic Acid 1.7 (0.7-2.0) mmol/L Calcium 8.8 (8.4-10.2) mg/dL Magnesium 2.2 (1.6-2.3) mg/dL Total Bilirubin 0.8 (0.2-1.3) mg/dL AST 27 (14-36) U/L ALT 19 (6-35) U/L Alkaline Phosphatase 125 (38-126) U/L Troponin I 0.025 (0.000-0.034) ng/mL C-Reactive Protein 15.1 H (<1.0) mg/dL Total Protein 7.2 (6.3-8.2) g/dL Albumin 3.7 (3.5-5.1) g/dL Nasal MRSA (PCR) (NOT DETECTE) Influenza A (RT-PCR) Negative (Negative) Influenza B (RT-PCR) Negative (Negative) RSV (RT-PCR) Negative (Negative) SARS-CoV-2 RNA (RT-PCR) Negative (Negative) 11/13/24 Range/Units 22:32 WBC (4.5-10.0) K/mm3 RBC (4.2-5.4) M/mm3 Hgb (12.0-15.0) g/dL Hct (37.0-47.0) % MCV (80-100) fl MCH (26-34) pg MCHC (32-36) g/dl RDW (11.5-14.5) % Plt Count (150-375) k/mm3 MPV (7.4-10.4) fl Immature Gran % (Auto) (0-0.5) % Neut % (Auto) (45.5-73.1) % Lymph % (Auto) (18.3-44.2) % Rapides % (Auto) (2.6-8.5) % Eos % (Auto) (0-4.4) % Baso % (Auto) (0.2-1.2) % Lymph # (Auto) (0.9-3.2) K/mm3 Rapides # (Auto) (0.1-0.6) K/mm3 Eos # (Auto) (0-0.3) K/mm3 Baso # (Auto) (0.0-0.1) K/mm3 Abs Immat Gran (auto) (0.00-0.031) K/mm3 Absolute Neuts (auto) (1.3-6.7) K/mm3 Absolute Nucleated RBC (0.0-0.012) K/mm3 Nucleated RBC % (0.0-0.2) % PT (11.1-14.7) Seconds INR APTT (22.3-36.8) Seconds Sodium (137-145) mmol/L Potassium (3.4-5.0) mmol/L Chloride (98-107) mmol/L Carbon Dioxide (22-30) mmol/L Anion Gap (4-12) mmol/L BUN (7-17) mg/dL Creatinine (0.7-1.0) mg/dL Estim Creat Clear Calc ml/min Estimated GFR (59 - ) Glucose (65-110) mg/dL Lactic Acid (0.7-2.0) mmol/L Calcium (8.4-10.2) mg/dL Magnesium (1.6-2.3) mg/dL Total Bilirubin (0.2-1.3) mg/dL AST (14-36) U/L ALT (6-35) U/L Alkaline Phosphatase (38-126) U/L Troponin I (0.000-0.034) ng/mL C-Reactive Protein (<1.0) mg/dL Total Protein (6.3-8.2) g/dL Albumin (3.5-5.1) g/dL Nasal MRSA (PCR) Not detected (NOT DETECTE) Influenza A (RT-PCR) (Negative) Influenza B (RT-PCR) (Negative) RSV (RT-PCR) (Negative) SARS-CoV-2 RNA (RT-PCR) (Negative) <Shelly Chatterjee, DIRECTOR DATABASE - Last Filed: 11/13/24 22:52> Lab Results 11/13/24 11/13/24 11/13/24 Range/Units 18:06 18:07 18:21 WBC 14.5 H (4.5-10.0) K/mm3 RBC 4.37 (4.2-5.4) M/mm3 Hgb 13.3 (12.0-15.0) g/dL Hct 42.3 (37.0-47.0) % MCV 96.8 (80-100) fl MCH 30.4 (26-34) pg MCHC 31.4 L (32-36) g/dl RDW 15.2 H (11.5-14.5) % Plt Count 233 (150-375) k/mm3 MPV 9.0 (7.4-10.4) fl Immature Gran % (Auto) 0.5 (0-0.5) % Neut % (Auto) 77.5 H (45.5-73.1) % Lymph % (Auto) 12.1 L (18.3-44.2) % Rapides % (Auto) 8.9 H (2.6-8.5) % Eos % (Auto) 0.7 (0-4.4) % Baso % (Auto) 0.3 (0.2-1.2) % Lymph # (Auto) 1.75 (0.9-3.2) K/mm3 Rap[place] # (Auto) 1.3 H (0.1-0.6) K/mm3 Eos # (Auto) 0.1 (0-0.3) K/mm3 Baso # (Auto) 0.0 (0.0-0.1) K/mm3 Abs Immat Gran (auto) 0.07 H (0.00-0.031) K/mm3 Absolute Neuts (auto) 11.2 H (1.3-6.7) K/mm3 Absolute Nucleated RBC 0.000 (0.0-0.012) K/mm3 Nucleated RBC % 0.0 (0.0-0.2) % PT 14.0 (11.1-14.7) Seconds INR 1.1 APTT 29.6 (22.3-36.8) Seconds Sodium 135 L (137-145) mmol/L Potassium 3.3 L (3.4-5.0) mmol/L Chloride 102 (98-107) mmol/L Carbon Dioxide 25 (22-30) mmol/L Anion Gap 8 (4-12) mmol/L BUN 10 (7-17) mg/dL Creatinine 0.89 (0.7-1.0) mg/dL Estim Creat Clear Calc 42 ml/min Estimated GFR > 60 (59 - ) Glucose 101 (65-110) mg/dL Lactic Acid 1.7 (0.7-2.0) mmol/L Calcium 8.8 (8.4-10.2) mg/dL Magnesium 2.2 (1.6-2.3) mg/dL Total Bilirubin 0.8 (0.2-1.3) mg/dL AST 27 (14-36) U/L ALT 19 (6-35) U/L Alkaline Phosphatase 125 (38-126) U/L Troponin I 0.025 (0.000-0.034) ng/mL C-Reactive Protein 15.1 H (<1.0) mg/dL Total Protein 7.2 (6.3-8.2) g/dL Albumin 3.7 (3.5-5.1) g/dL Nasal MRSA (PCR) (NOT DETECTE) Influenza A (RT-PCR) Negative (Negative) Influenza B (RT-PCR) Negative (Negative) RSV (RT-PCR) Negative (Negative) SARS-CoV-2 RNA (RT-PCR) Negative (Negative) 11/13/24 Range/Units 22:32 WBC (4.5-10.0) K/mm3 RBC (4.2-5.4) M/mm3 Hgb (12.0-15.0) g/dL Hct (37.0-47.0) % MCV (80-100) fl MCH (26-34) pg MCHC (32-36) g/dl RDW (11.5-14.5) % Plt Count (150-375) k/mm3 MPV (7.4-10.4) fl Immature Gran % (Auto) (0-0.5) % Neut % (Auto) (45.5-73.1) % Lymph % (Auto) (18.3-44.2) % Rapides % (Auto) (2.6-8.5) % Eos % (Auto) (0-4.4) % Baso % (Auto) (0.2-1.2) % Lymph # (Auto) (0.9-3.2) K/mm3 [place] # (Auto) (0.1-0.6) K/mm3 Eos # (Auto) (0-0.3) K/mm3 Baso # (Auto) (0.0-0.1) K/mm3 Abs Immat Gran (auto) (0.00-0.031) K/mm3 Absolute Neuts (auto) (1.3-6.7) K/mm3 Absolute Nucleated RBC (0.0-0.012) K/mm3 Nucleated RBC % (0.0-0.2) % PT (11.1-14.7) Seconds INR APTT (22.3-36.8) Seconds Sodium (137-145) mmol/L Potassium (3.4-5.0) mmol/L Chloride (98-107) mmol/L Carbon Dioxide (22-30) mmol/L Anion Gap (4-12) mmol/L BUN (7-17) mg/dL Creatinine (0.7-1.0) mg/dL Estim Creat Clear Calc ml/min Estimated GFR (59 - ) Glucose (65-110) mg/dL Lactic Acid (0.7-2.0) mmol/L Calcium (8.4-10.2) mg/dL Magnesium (1.6-2.3) mg/dL Total Bilirubin (0.2-1.3) mg/dL AST (14-36) U/L ALT (6-35) U/L Alkaline Phosphatase (38-126) U/L Troponin I (0.000-0.034) ng/mL C-Reactive Protein (<1.0) mg/dL Total Protein (6.3-8.2) g/dL Albumin (3.5-5.1) g/dL Nasal MRSA (PCR) Not detected (NOT DETECTE) Influenza A (RT-PCR) (Negative) Influenza B (RT-PCR) (Negative) RSV (RT-PCR) (Negative) SARS-CoV-2 RNA (RT-PCR) (Negative) <Lazaro Begum MD - Last Filed: 11/14/24 02:08> ABG Data ABG results: 11/13/24 18:07 Puncture Site Right radial ABG pH 7.458 H ABG pCO2 34.1 L ABG pO2 70.3 L ABG PO2/FiO2 Ratio 2.51 ABG HCO3 23.6 ABG O2 Saturation 95.1 ABG O2 Content 17.3 ABG Base Excess 0.3 A-a Gradient 89.1 Oxyhemoglobin 88.9 L Total Hemoglobin 13.8 O2 Delivery Device Nasal cannula O2 Liters/Min 2.0 FiO2 28 <Shelly Chatterjee APRN - Last Filed: 11/13/24 22:52> 11/13/24 18:07 Puncture Site Right radial ABG pH 7.458 H ABG pCO2 34.1 L ABG pO2 70.3 L ABG PO2/FiO2 Ratio 2.51 ABG HCO3 23.6 ABG O2 Saturation 95.1 ABG O2 Content 17.3 ABG Base Excess 0.3 A-a Gradient 89.1 Oxyhemoglobin 88.9 L Total Hemoglobin 13.8 O2 Delivery Device Nasal cannula O2 Liters/Min 2.0 FiO2 28 <Lazaro Begum MD - Last Filed: 11/14/24 02:08> Imaging Data Attestation: I personally reviewed and interpreted this imaging study as follows: <Shelly Chatterjee APRN - Last Filed: 11/13/24 22:52> Radiologist's impression: Impressions Chest X-Ray 11/13/24 18:58 IMPRESSION: Prominent right hilum is noted. Further evaluation to exclude underlying mass is advised. Fibrotic/emphysematous changes of the lungs with possible superimposed pneumonitis on the right side. Chest CTA 11/13/24 21:07 IMPRESSION: 1. No pulmonary embolism. 2. Mass measuring 4.1 x 2.9 cm in the right lower lobe. Further evaluation advised. Smaller nodule is seen adjacent to this mass in the right lower lobe area. 3. interstitial and alveolar opacification in the right middle , lower and upper lobes and left lower lobe suggestive of pneumonitis. 4. Extensive emphysematous changes seen bilaterally. 5. Right hilar and mediastinal lymphadenopathy. 6. The proximal abdominal aorta measures 3 cm. <Shelly Chatterjee APRN - Last Filed: 11/13/24 22:52> Discharge Plan Discharge Clinical Impression: Right lower lobe lung mass, Chronic obstructive pulmonary disease, Community acquired pneumonia <Shelly Chatterjee APRN - Last Filed: 11/13/24 22:52> Patient Disposition: Still a Patient <Shelly Chatterjee APRN - Last Filed: 11/13/24 22:52> Condition: Guarded Prognosis <Shelly Chatterjee APRN - Last Filed: 11/13/24 22:52>
--- OUTSIDE RECORDS SUMMARY | 2024-11-13 18:10 | XMS_ITS | Continuity of Care Document ---
Author Organization [facility] Address [address] [place] [address] [address] [place] [address] Phone Care Team Providers Care Paper Wood Cutter Name Role Phone Michelle Ojeda Unavailable Unavailable Advance Directives Directive Yes / No Effective Date File Name No Information Encounters Encounter Description Practice Location Reason(s) For Visit Diagnoses Date Provider Providers Copied on Encounter [facility], [address], [place], [place], [id number], [place] tel:[phone] [facility] (formerly [facility])[3] No Information [address] , [address], [place], [address], [place]. tel:[phone] Family History Family Member Type Diagnosis Age At Onset No Information Payers Payer name Insurance type Covered green party ID Authoriza tion(s) [employer] SOI CI [id number] Social History Type Description Quantity Date Captured [...]
--- OUTSIDE RECORDS SUMMARY | 2024-11-13 18:10 | XMS_ITS | Clinical Summary ---
Author Organization [facility] Address [address] [place] [address] Phone Care Team Providers Care Protein Chemist Name Role Phone Unavailable Primary Care Provider [...] 50 mg Oral tabletIndications:C oronary atherosclerosis of huslia coronary artery,Hyperlipidem ia,Hypertension Take 1 Tab by [...] migh t be different from the original. Commercial Center Manager - Dr Christian Ascencio Problem Noted Date Diagnosed Date Coronary atherosclerosis of huslia coronary martin ry 11/25/2010 Overview (08/16/2012): 1989 [...] LDL 140 triglyceride 121, normal AST/ALT 07/13 [id number] HDL 43 LDL 100 triglyceride 115, normal AST/ALT 04/05 cholesterol 213 HDL 38 LDL 150 triglyceride 125 COPD (chronic obstructive pulmonary disease) Overview (04/05/2011): 03/[address]: severe rosa emphysema, RLL honeycombing, celiac/SMA /renal artery atherosclerosis, no PE/aortic disease, left hydronephrosis,... Encounters Date Type Department Care Team Description 11/04/2024 Telephone [facility] Oncology and Hematology [facility] [address] [place] [id number] Guided Biopsy (Spoke with patient to provide CT guided biopsy info) 10/28/2024 Orders Only [facility] Oncology and Hematology [address] [place] [address] Quique Palomo MD 10/24/2024 12:00 PM CDT Office Visit [facility] Oncology and Hematology [place] [address] [address] [place] [phone] Quique Palomo MD Mass of right lung (Primary Dx); Chronic obstructive pulmonary disease, unspecified COPD type (CMS/HCC) 10/22/2024 External Device Data STL ABSTRACTION Provider, Abstract 10/22/2024 Orders Only [facility] Oncology and Hematology - [address] [place] [address] Quique Palomo MD 10/21/2024 External Device Data STL ABSTRACTION Provider, Abstract 10/14/2024 Orders Only [facility] Oncology and Hematology - [place] [facility] [place] [address] [place] [phone] Quique Palomo MD from Last 3 Months Family History Relation Name Status Comments Father Alive RI at age 45 Sister Alive RI at age 39 Social History Tobacco Use [...] on file 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
[2024-11-13] MEDS: IPRATROPIUM 0.5 MG/ALBUTEROL SULFATE 2.5 MG AMPUL.NEB 3 ML INHALATION (18:14)
[2024-11-13 18:18] LABS: Basophils Percent Auto 0.3 % (0.2-1.2); Eosinophils Absolute Auto 0.1 K/mm3 (0-0.3); Eosinophils Percent Auto 0.7 % (0-4.4); Hematocrit 42.3 % (37.0-47.0); Hemoglobin 13.3 g/dL (12.0-15.0); Immature Granulocyte Absolute 0.07 K/mm3 (0.00-0.031); Immature Granulocyte Percent A 0.5 % (0-0.5); Lymphocytes Absolute Auto 1.75 K/mm3 (0.9-3.2); Lymphocytes Percent Auto 12.1 % (18.3-44.2); Mean Corpuscular HGB Conc 31.4 g/dl (32-36); Mean Corpuscular Hemoglobin 30.4 pg (26-34); Mean Corpuscular Volume 96.8 fl (80-100); Monocytes Absolute Auto 1.3 K/mm3 (0.1-0.6); Monocytes Percent Auto 8.9 % (2.6-8.5); Neutrophils Absolute Auto 11.2 K/mm3 (1.3-6.7); Neutrophils Percent Auto 77.5 % (45.5-73.1); Platelet Count Result 233 k/mm3 (150-375); Red Blood Count 4.37 M/mm3 (4.2-5.4); Red Cell Distribution Width 15.2 % (11.5-14.5); White Blood Count 14.5 K/mm3 (4.5-10.0)
[2024-11-13 18:24] LABS: Alveolar/Arterial O2 Gradient 89.1 mmHg; Base Excess ABG 0.3 mEq/l (+/-2.0); Fractional Inspired Oxygen 28 %; HCO3 ABG 23.6 mEq/l (22.0-26.0); Oxygen Content ABG 17.3 %vol (16.0-22.0); Oxygen Saturation ABG 95.1 % (95.0-100.0); Oxyhemoglobin 88.9 % THb (90.0-100.0); PCO2 ABG 34.1 mmHg (35.0-45.0); PO2 ABG 70.3 mmHg (80.0-100.0); PO2 FiO2 Ratio Arterial Blood 2.51 %; Total Hemoglobin 13.8 g/dL (12.0-18.0); pH ABG 7.458 (7.350-7.450)
[2024-11-13 18:25] LABS: Device NASAL CANNULA; Modified Allen's Test Pass; Site Drawn RIGHT RADIAL
[2024-11-13 18:28] LABS: Alanine Aminotransferase 19 U/L (6-35); Albumin Level 3.7 g/dL (3.5-5.1); Alkaline Phosphatase 125 U/L (38-126); Anion Gap 8 mmol/L (4-12); Aspartate Amino Transferase 27 U/L (14-36); Bilirubin,Total 0.8 mg/dL (0.2-1.3); Blood Urea Nitrogen 10 mg/dL (7-17); Calcium 8.8 mg/dL (8.4-10.2); Carbon Dioxide 25 mmol/L (22-30); Chloride 102 mmol/L (98-107); Estimated CRCL calculation 42 ml/min; Estimated Glomerular Filt Rate > 60; Glucose 101 mg/dL (65-110); Magnesium 2.2 mg/dL (1.6-2.3); Potassium 3.3 mmol/L (3.4-5.0); Sodium 135 mmol/L (137-145); Total Protein 7.2 g/dL (6.3-8.2)
[2024-11-13 18:29] LABS: Lactic Acid Reflex 1.7 mmol/L (0.7-2.0)
[2024-11-13 18:30] LABS: INR 1.1; Partial Thromboplastin Time 29.6 Seconds (22.3-36.8)
[2024-11-13 18:40] LABS: Troponin I 0.025 ng/mL (0.000-0.034)
[2024-11-13] MEDS: methylPREDNISolone SOD SUCC 125 MG VIAL IV PUSH (19:02)
[2024-11-13 19:06] LABS: Influenza A QL RT-PCR Negative (Negative); Influenza B QL RT-PCR Negative (Negative); RSV RNA, RT-PCR Negative (Negative); SARS-CoV-2 RNA PCR Negative (Negative)
--- NOTE | 2024-11-13 22:05 | PM.IMHP ---
H&P: HPI History of Present Illness Date/Time: 11/13/24 22:05 Chief Complaint: Shortness of breath. Narrative: This is a 73-year-old female smoker with history of chronic obstructive pulmonary disease, right lower lobe lung mass status post radiation in October 2022, coronary artery disease with history of stent, peripheral vascular disease with history of angioplasty and stents, carotid artery disease status post bilateral carotid endarterectomy, hyperlipidemia, gastroesophageal reflux disease, kidney stones, and osteoporosis who presented to the emergency department with complaints of shortness of breath. Chest CTs done in June and more recently last month show a continued increase in the right lower lobe nodule concerning for malignancy. She was scheduled for a CT-guided biopsy yesterday however she was hypoxic on arrival and the biopsy was canceled. She was then sent to the emergency department with plans for admission however she left against medical advice. Since that time she has been feeling worse and endorses chills, an increase in sputum production, and shortness of breath. She denies documented fever, sore throat, chest pain, pleuritic pain, palpitations, hemoptysis, nausea, vomiting, diarrhea, lower extremity edema, and calf pain. In the ED: Vital signs on arrival include a temperature of 99?, blood pressure 160/52, pulse 81, respiratory 20, SpO2 82% on room air. Labs were significant for WBC count of 14.5, sodium 135, potassium 3.3, lactic acid 1.7, CRP 15.1. She tested negative for influenza, RSV, COVID, and nasal MRSA. Chest CTA was negative for pulmonary embolism. A 4.1 x 2.9 cm mass was seen in the right lower lobe with findings suggestive of pneumonitis, right hilar and mediastinal lymphadenopathy, and emphysematous changes. She received azithromycin, meropenem, and vancomycin for possible postobstructive pneumonia. She is being admitted in this setting for further treatment. Review of Systems Review of Systems: 12 systems were reviewed and are negative except for as per HPI. [facility] Past Medical History Medical History (Updated 11/14/24 @ 02:10 by Jacqui Shen PA-C) Carotid artery disease Peripheral vascular disease Chronic obstructive pulmonary disease Transient ischemic attack Gastroesophageal reflux disease Hypertension Osteoporosis History of radiation therapy right lower lobe 2022 Malignant neoplasm of lower lobe, right bronchus or lung Depression Dyslipidemia Anxiety Surgical History Surgical History (Updated 11/14/24 @ 02:10 by Jacqui Shen PA-C) History of bilateral carotid endarterectomy Status post angioplasty with stent iliac, subclavian, renal arteries History of cholecystectomy History of total hysterectomy with bilateral salpingo-oophorectomy (BSO) Social History Social History (Updated 11/14/24 @ 02:10 by Jacqui Shen PA-C) Social History: Surrogate medical decision maker: Yaakov Bocanegra, son. Code status: Full code. Smoking packs per day: 2 Smoking cigarettes per day: 40.0 Years smoked: 40 Smoking pack-years: 80.00 Smoking status: Current every day smoker Tobacco type: cigarettes Additional smoking assessment comments: weaning off cigarettes Alcohol intake: former Drinks per week: 5 Substance use: never Substance use type: does not use Do You Feel Safe in your Home?: Yes Lack of Transportation: No Lack of Food: Never True Current Housing: I Have Housing Concerned About Future Housing: No Difficulty Paying Gas/Electric Bills: No Difficulty Paying for Meds: No Currently Unemployed: No Education: Don't Know Difficulty w/ Childcare or Family Care: No Living arrangements: alone Occupation/Education: retired Spiritual care concerns: No Meds Home Medications and Allergies Home Medications ?Medication ?Instructions ?Recorded ?Confirmed ?Type desmopressin 0.2 mg tablet 0.2 mg PO HS 02/20/22 11/14/24 History melatonin 5 mg capsule 5 mg PO QHS 08/29/22 11/14/24 History atorvastatin 40 mg tablet 40 mg PO DAILY 90 days #90 tabs 08/13/24 11/14/24 Rx carvedilol 12.5 mg tablet 6.25 mg (1/2 x 12.5 mg) PO BID 90 08/13/24 11/14/24 Rx days #90 tabs clopidogrel 75 mg tablet (Plavix) 75 mg PO DAILY #90 tabs 08/13/24 11/14/24 Rx lisinopril 40 mg tablet 40 mg PO QAM 90 days #90 tabs 08/13/24 11/14/24 Rx escitalopram oxalate 10 mg tablet 10 mg PO HS #90 tabs 09/29/24 11/14/24 Rx pantoprazole 20 mg tablet,delayed 20 mg PO QAM PRN Indigestion #90 09/29/24 11/14/24 Rx release tabs furosemide 20 mg tablet 20 mg PO QAM #90 tabs 10/02/24 11/14/24 Rx albuterol 90 mcg-budesonide 80 2 inh inhalation QID PRN shortness 11/05/24 11/14/24 Rx mcg/actuation HFA aerosol inhaler of breath and cough #10.7 grams (Airsupra) fluticasone fur. 200 mcg-umeclid 1 inh inhalation DAILY #60 ea 11/05/24 11/14/24 Rx 62.5 mcg-vilant 25 mcg inhalat.powder (Trelegy Ellipta) Allergies Allergy/AdvReac Type Severity Reaction Status Date / Time Penicillins Allergy Severe BREATHING Verified 11/14/24 01:12 DIFFICULTY, SWELLING Vital Signs Vital Signs - 24 hr 11/13/24 17:46 11/13/24 17:51 11/13/24 18:03 Temperature 99 F Pulse Rate 81 77 Respiratory Rate 20 Blood Pressure 168/52 H Pulse Oximetry 82 L 98 Oxygen Delivery Room Air Nasal Cannula Oxygen Flow Rate 2 11/13/24 18:05 11/13/24 18:09 11/13/24 19:00 Temperature Pulse Rate 85 83 Respiratory Rate 23 H 16 Blood Pressure 162/57 H 166/66 H Pulse Oximetry 98 95 98 Oxygen Delivery Nasal Cannula Oxygen Flow Rate 2 11/13/24 19:30 11/13/24 20:19 11/13/24 21:07 Temperature Pulse Rate 87 80 83 Respiratory Rate 21 H 21 H 24 H Blood Pressure 172/64 H 176/66 H 191/76 H Pulse Oximetry 97 100 96 Oxygen Delivery Oxygen Flow Rate 11/13/24 21:48 Temperature Pulse Rate 77 Respiratory Rate 20 Blood Pressure 178/64 H Pulse Oximetry 97 Oxygen Delivery Oxygen Flow Rate Exam Narrative: General: Thin, chronically ill-appearing female sitting up in bed. Smells slightly of smoke. Weight: 56.9 kg. BMI: 20.9. HEENT: PERRL, EOMI. Sclera anicteric. Tacky mucous membranes. Neck: Supple. No JVD. Respiratory: Currently on 3 L nasal cannula. Respirations are nonlabored and she is speaking in full sentences. Lung sounds are significantly diminished throughout with scattered rales and occasional wheezing. Cardiovascular: Regular rate and rhythm with S1-S2. Gastrointestinal: Abdomen is soft, nontender, and nondistended with positive bowel sounds. Skin: Warm and dry. No rash or lesions on limited exam. Extremities: No cyanosis, clubbing, or edema. Radial pulses palpable. Posterior tibialis pulses diminished. Neurological: Alert. Cranial nerves 2-12 are grossly intact. No gross focal deficits to casual conversation. Psychiatric: Pleasant and cooperative with normal mood and affect. Judgment and insight intact. H&P: Results Labs Labs: Short CBC 11/13/24 Range/Units 18:07 WBC 14.5 H (4.5-10.0) K/mm3 Hgb 13.3 (12.0-15.0) g/dL Hct 42.3 (37.0-47.0) % Plt Count 233 (150-375) k/mm3 BMP 11/13/24 18:07 Sodium 135 L Potassium 3.3 L Chloride 102 Carbon Dioxide 25 BUN 10 Creatinine 0.89 Glucose 101 Calcium 8.8 Cardiac Enzymes 11/13/24 Range/Units 18:07 Troponin I 0.025 (0.000-0.034) ng/mL Liver Function 11/13/24 Range/Units 18:07 Total Bilirubin 0.8 (0.2-1.3) mg/dL AST 27 (14-36) U/L ALT 19 (6-35) U/L Alkaline Phosphatase 125 (38-126) U/L Albumin 3.7 (3.5-5.1) g/dL Imaging Chest X-Ray 11/13/24 18:58 IMPRESSION: Prominent right hilum is noted. Further evaluation to exclude underlying mass is advised. Fibrotic/emphysematous changes of the lungs with possible superimposed pneumonitis on the right side. Chest CTA 11/13/24 21:07 IMPRESSION: 1. No pulmonary embolism. 2. Mass measuring 4.1 x 2.9 cm in the right lower lobe. Smaller nodule is seen adjacent to this mass in the right lower lobe area. 3. Interstitial and alveolar opacification in the right middle , lower and upper lobes and left lower lobe suggestive of pneumonitis. 4. Extensive emphysematous changes seen bilaterally. 5. Right hilar and mediastinal lymphadenopathy. 6. The proximal abdominal aorta measures 3 cm. Assessment and Plan Assessment and plan (1) Acute respiratory failure with hypoxia: Code(s): J96.01 - Acute respiratory failure with hypoxia Status: Acute (2) Postobstructive pneumonia: Code(s): J18.9 - Pneumonia, unspecified organism Status: Acute (3) Right lower lobe lung mass: Code(s): R91.8 - Other nonspecific abnormal finding of lung field Status: Acute (4) Chronic obstructive pulmonary disease: Code(s): J44.9 - Chronic obstructive pulmonary disease, unspecified Status: Acute (5) Hypertension: Code(s): I10 - Essential (primary) hypertension Status: Acute Plan The patient presented to the emergency department for evaluation of shortness of breath, cough, and chills as detailed in HPI. Labs, imaging, EKG, and all reports were personally reviewed. Chest CT shows an increase in a right lower lobe mass concerning for malignant as well as findings of pneumonia. She received azithromycin, meropenem, and vancomycin in the ED. Her antibiotics will be changed to cefepime (patient reports anaphylaxis to penicillin in the ; cefepime has a different structure and is considered safe to prescribed), doxycycline, metronidazole, and vancomycin to cover possible postobstructive pneumonia. Continue scheduled bronchodilators. Desire Mucinex ordered to help mobilize secretions. Sputum culture pending. She is currently on 3 L and admits that she was told a couple of months ago that she needs oxygen at home however she called the company and had them remove attending from her home as she did not know how to use it. She will need a home oxygen evaluation prior to discharge. Continue to hold clopidogrel and she will be NPO after midnight for possible CT-guided lung biopsy tomorrow depending on the radiologist schedule. Blood pressures have been running high and will be monitored closely for possible adjustments in medication depending on how she trends. Her home medications will be reviewed and resumed as appropriate. Findings and treatment plan were discussed with the patient. Questions were solicited and answered to satisfaction. The patient's medical management will be taken over by the hospitalist team in a.m. Quality VTE Prophylaxis VTE prophylaxis: mechanical ordered If No VTE Prophylaxis Answer both mechanical and pharmacologic: Reason no pharmacologic proph: medical contraindication (may have procedure tomorrow) Hospitalist MIPS Advance Care Plan I have confirmed that the patient's Advanced Care Plan is present, code status is documented, or surrogate decision maker is listed in patient medical record.: Yes Medication Reconciliation I have utilized all available resources to obtain, update and review the patients current medications (includes all prescriptions, OTC, herbals, cannabis, and nutritional supplements).: Yes
[2024-11-13 22:39] LABS: CRP 15.1 mg/dL (<1.0)
[2024-11-13] MEDS: SODIUM CHLORIDE 0.9% IV 1,000 ML 999 ML IV CONT (22:39)
[2024-11-13] MEDS: SODIUM CHLORIDE 0.9% IV 700 ML 999 ML IV CONT (22:40)
[2024-11-13] MEDS: MEROPENEM 1 GM/NS 100 ML 1 GM/100 ML BAG IVPB (22:40)
--- NOTE | 2024-11-13 23:18 | PC.NURSE ---
Bedside report to Mazin ROBIN
[2024-11-13] MEDS: AZITHROMYCIN 500 MG/NS 250 ML 500 MG/250 ML BAG 250 MG IVPB (23:22)
[2024-11-14] VITALS (21 sets, daily range): BP systolic 92–179; BP diastolic 51–89; PULSE 60–112; RESP 14–28; TEMP 36.4–36.7; O2SAT 77–98; BMI 20.8
[2024-11-14 00:40] LABS: MRSA (PCR) NOT DETECTED (NOT DETECTE)
[2024-11-14] MEDS: VANCOMYCIN 1,250 MG/NS 250 ML 1,250 MG/250 ML BAG 166.67 MG IVPB (00:49)
[2024-11-14] MEDS: SODIUM CHLORIDE 0.9% IV 1,000 ML 125 ML IV CONT ×2 (00:49→06:06)
[2024-11-14] MEDS: POTASSIUM CHLORIDE 20 MEQ ER TABLET PO (00:52)
--- NOTE | 2024-11-14 01:16 | ADMGEN ---
This patient, Dawn Bocanegra, was admitted to 2 Medical Room 254-01. Patient/family oriented to hospital policies and general routines including ID bracelet, bed and alarms, visiting hours, pain management, procedures, bathroom and other care routines, personal items, smoking policy, room service/diet, and visiting hours. Information on how to activate the Rapid Response Team has been discussed. Patient/Family are encouraged to report perceived risks to care and to ask questions if they do not understand what they are told or what they should do.
[2024-11-14] MEDS: MELATONIN 5 MG TABLET PO ×2 (02:00→20:35)
[2024-11-14 02:57] LABS: Basophils Percent Auto 0.2 % (0.2-1.2); Hematocrit 39.7 % (37.0-47.0); Immature Granulocyte Absolute 0.04 K/mm3 (0.00-0.031); Immature Granulocyte Percent A 0.4 % (0-0.5); Lymphocytes Absolute Auto 0.67 K/mm3 (0.9-3.2); Mean Corpuscular HGB Conc 30.2 g/dl (32-36); Mean Corpuscular Volume 99.3 fl (80-100); Monocytes Absolute Auto 0.1 K/mm3 (0.1-0.6); Monocytes Percent Auto 0.7 % (2.6-8.5); Neutrophils Absolute Auto 8.8 K/mm3 (1.3-6.7); Neutrophils Percent Auto 91.7 % (45.5-73.1); Platelet Count Result 198 k/mm3 (150-375); Red Cell Distribution Width 15.1 % (11.5-14.5); White Blood Count 9.6 K/mm3 (4.5-10.0)
[2024-11-14 03:11] LABS: Anion Gap 4 mmol/L (4-12); Blood Urea Nitrogen 8 mg/dL (7-17); Calcium 7.7 mg/dL (8.4-10.2); Carbon Dioxide 21 mmol/L (22-30); Chloride 112 mmol/L (98-107); Estimated CRCL calculation 49 ml/min; Estimated Glomerular Filt Rate > 60; Glucose 131 mg/dL (65-110); Potassium 4.8 mmol/L (3.4-5.0); Sodium 137 mmol/L (137-145)
[2024-11-14] MEDS: CEFEPIME 2 GM/NS 50 ML 2 GM/50 ML BAG IVPB (04:25)
[2024-11-14] MEDS: metroNIDAZOLE 500 MG/ISO 100ML 500 MG/100 ML BAG 100 MG IVPB ×3 (04:59→20:33)
[2024-11-14 06:38] LABS: Add Urine Microscopic? NO; Appearance Urine Clear (Clear); Color Urine Yellow (Yellow)
[2024-11-14 06:39] LABS: Bilirubin Urine Negative (Negative); Blood Urine Trace-intact (Negative); Glucose Urine UA Negative (Negative); Ketones Urine Trace mg/dL (Negative); Leukocyte Esterase Ur Negative LEU/UL (Negative); Nitrate Urine Negative (Negative); Protein Urine Negative (Negative); Specific Grav Ur 1.015 (1.001-1.035); Urobilinogen Urine 0.2 mg/dL (<2.0); pH Urine 6.5 (5.0-9.0)
[2024-11-14 06:40] LABS: Bacteria Urine None Seen /hpf; Non Pathogenic Casts 0-2; RBC Urine 0-2 /hpf (0-2); Squamous Epithelial Cell Urine None Seen /hpf (Few); WBC Urine 0-5 /hpf (0-3)
[2024-11-14] MEDS: IPRATROPIUM 0.5 MG/ALBUTEROL SULFATE 2.5 MG AMPUL.NEB 3 ML INHALATION ×3 (08:12→20:45)
[2024-11-14] MEDS: FLUTICASONE/UMECLIDIN/VILANTER 200-62.5-25 MCG ELLIPTA 1 PUFF INHALATION (08:14)
--- NOTE | 2024-11-14 09:58 | P.PNIM_ITS ---
Progress Note: A&P Assessment and Plan (1) Acute respiratory failure with hypoxia: Code(s): J96.01 - Acute respiratory failure with hypoxia Status: Acute Assessment and Plan: Pt presented to the ED for evaluation of increased SOB, cough, increased sputum, and chills that has worsened over the last several days. -Chest CT shows an increase in a right lower lobe mass concerning for malignant as well as findings of pneumonia. -->She received azithromycin, meropenem, and vancomycin in the ED. -->Her antibiotics will be changed to cefepime (patient reports anaphylaxis to penicillin in the ; cefepime has a different structure and is considered safe to prescribed), doxycycline, metronidazole, and vancomycin to cover possible postobstructive pneumonia. -Continue scheduled bronchodilators. -Cornet Mucinex ordered to help mobilize secretions. -->Sputum culture pending, container at bedside and reminded her about the need for it. -She is currently on 3 L and admits that she was told a couple of months ago that she needs oxygen at home however she called the company and had them remove attending from her home as she did not know how to use it. She will need a home oxygen evaluation prior to discharge. 11/14: Pt still c/o of SOB but reports that she feels 100% than yesterday but I would feel better if I didn't have all this sputum. -Plan to continue with above plan as well as serial AM labs and O2 assessment -Pending PULM consult, see below. (2) Postobstructive pneumonia: Code(s): J18.9 - Pneumonia, unspecified organism Status: Acute Assessment and Plan: See above. (3) Right lower lobe lung mass: Code(s): R91.8 - Other nonspecific abnormal finding of lung field Status: Acute Assessment and Plan: Chest CTs performed in June and more recently October 2024 show a continued increase in the RLL nodule concerning for malignancy. She was scheduled for a CT-guided biopsy yesterday however she was hypoxic on arrival and the biopsy was canceled. She was then sent to the emergency department with plans for admission however she left against medical advice. -Continue to hold clopidogrel and she will be NPO after midnight for possible CT-guided lung biopsy tomorrow depending on the radiologist schedule. 11/14: -CT biopsy of lung ordered for today but per CT, unable to do if pt is actively using O2. Per nursing, pt does not use O2 at home, but, per hospitalist note, pt was told a couple of months ago that she needs O2 at home however she called the company and had them remove O2 from her home as she did not know how to use it. She will need a home oxygen evaluation prior to discharge. -->Upon interview today, pt states that she was not given any direction on how to work home O2, that is why she has not been using it -->Encouraged nursing to try to downtrend pt O2 while inpt to obtain biopsy. -->Pending PULM consult and appreciate their recommendations for lung mass work- up (4) Chronic obstructive pulmonary disease: Code(s): J44.9 - Chronic obstructive pulmonary disease, unspecified Status: Acute Assessment and Plan: Continue home meds, abx for PNA ordered (5) Hypertension: Code(s): I10 - Essential (primary) hypertension Status: Acute Assessment and Plan: Blood pressures have been running high and will be monitored closely for possible adjustments in medication depending on how she trends. -Her home medications will be reviewed and resumed as appropriate. Plan Continue to monitor pt and SOB assessment and lung sounds. Continue to trend labs, need for O2/assessment, pending sputum culture as well as PULM consult. 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 Chest CTs done in June and more recently last month show a continued increase in the right lower lobe nodule concerning for malignancy. She was scheduled for a CT-guided biopsy yesterday however she was hypoxic on arrival and the biopsy was canceled. She was then sent to the emergency department with plans for admission however she left against medical advice. Since that time she has been feeling worse and endorses chills, an increase in sputum production, and shortness of breath. She denies documented fever, sore throat, chest pain, pleuritic pain, palpitations, hemoptysis, nausea, vomiting, diarrhea, lower extremity edema, and calf pain. In the ED: Vital signs on arrival include a temperature of 99?, blood pressure 160/52, pulse 81, respiratory 20, SpO2 82% on room air. Labs were significant f or WBC count of 14.5, sodium 135, potassium 3.3, lactic acid 1.7, CRP 15.1. She tested negative for influenza, RSV, COVID, and nasal MRSA. Chest CTA was negative for pulmonary embolism. A 4.1 x 2.9 cm mass was seen in the right lower lobe with findings suggestive of pneumonitis, right hilar and mediastinal lymphadenopathy, and emphysematous changes. She received azithromycin, meropenem, and vancomycin for possible postobstructive pneumonia. She is being admitted in this setting for further treatment. 11/14: Visited pt in her room and she was lying resting in bed. Pt wearing 3L O2. Pt reports that she is still SOB but feels 100% better than I did yesterday. Pt reports that she has been told before that she is in need of wearing O2 at home, but has never been instructed on how to get this set up. Pt also states that she has an appt with a tube trailer filler in March but that was the first availability to be seen. Pt still in need of lung biopsy today but per rads/CT, since pt is on O2, she cannot get biopsy due to risk of pneumo. Pulm consulted today for guidance. Review of Systems Review of Systems: 12 systems were reviewed and are negativ e except for as per HPI. Exam Const: General: comfortable and no acute distress Other: Thin, chronically ill-appearing female sitting up in bed. HENMT: Face/Nose/Sinus: Normal nares present Other: tacky mucus membranes Eyes: General: appearance normal, both eyes and all related structures Sclera: sclerae normal Neck: Neck: supple and no JVD Carotids: no bruits Resp: Other: Currently on 3 L nasal cannula. Respirations are nonlabored and she is speaking in full sentences. Lung sounds are significantly diminished throughout with scattered rales and occasional wheezing. Cardio: Rate: regular rate Rhythm: regular rhythm GI: Inspection: non-distended Auscultation: normal bowel sounds Skin: General skin exam: normal color and no rashes or lesions noted Wounds: no wounds Neuro: Speech: normal speech Motor exam (neuro): Normal motor muscle tone present throughout Sensory Exam: normal sensation Extrem: General: normal to inspection, no edema and no pedal edema Psych: Mental Status: mental status grossly normal Affect: normal affect Objective Data Vital Signs Vital Signs: Vital Signs - 24 hr 11/13/24 17:46 11/13/24 17:51 11/13/24 18:03 Temperature 99 F Pulse Rate 81 77 Respiratory Rate 20 Blood Pressure 168/52 H Pulse Oximetry 82 L 98 Oxygen Delivery Room Air Nasal Cannula Oxygen Flow Rate 2 Fraction of Inspired Oxygen 11/13/24 18:05 11/13/24 18:09 11/13/24 19:00 Temperature Pulse Rate 85 83 Respiratory Rate 23 H 16 Blood Pressure 162/57 H 166/66 H Pulse Oximetry 98 95 98 Oxygen Delivery Nasal Cannula Oxygen Flow Rate 2 Fraction of Inspired Oxygen 11/13/24 19:30 11/13/24 20:19 11/13/24 21:07 Temperature Pulse Rate 87 80 83 Respiratory Rate 21 H 21 H 24 H Blood Pressure 172/64 H 176/66 H 191/76 H Pulse Oximetry 97 100 96 Oxygen Delivery Oxygen Flow Rate Fraction of Inspired Oxygen 11/13/24 21:48 11/13/24 22:46 11/14/24 00:09 Temperature Pulse Rate 77 69 102 H Respiratory Rate 20 20 20 Blood Pressure 178/64 H 197/72 H 179/60 H Pulse Oximetry 97 96 94 Oxygen Delivery Oxygen Flow Rate Fraction of Inspired Oxygen 11/14/24 01:05 11/14/24 03:00 11/14/24 03:05 Temperature 98.0 F Pulse Rate 81 Respiratory Rate 18 Blood Pressure 92/60 L Pulse Oximetry 93 88 L 94 Oxygen Delivery Nasal Cannula Nasal Cannula Oxygen Flow Rate 3 4 Fraction of Inspired Oxygen 11/14/24 06:30 11/14/24 08:10 11/14/24 08:10 Temperature 97.6 F Pulse Rate 60 85 Respiratory Rate 14 20 Blood Pressure 117/89 Pulse Oximetry 98 92 Oxygen Delivery Nasal Cannula Oxygen Flow Rate 3 Fraction of Inspired Oxygen 32 11/14/24 08:20 11/14/24 08:25 Temperature Pulse Rate 88 88 Respiratory Rate 20 20 Blood Pressure Pulse Oximetry 92 Oxygen Delivery Nasal Cannula Oxygen Flow Rate 3 Fraction of Inspired Oxygen 32 Intake/Output Intake/Output: Intake & Output 0611/12/24 11/13/24 11/14/24 23:59 23:59 23:59 23:59 Intake Total 100 0 Output Total 300 Balance 100 -300 Meds/Results Medications: Active Medications Generic Name Dose Route Start Last Admin Trade Name Freq PRN Reason Stop Dose Admin Acetaminophen 650 mg 11/13/24 22:45 Acetaminophen 325 Mg Tablet PO Q6H PRN Mild Pain (1-3) or Fever Albuterol/Ipratropium 3 ml 11/14/24 08:00 11/14/24 08:12 Ipratropium 0.5 Mg/Albuterol Sulfate 2.5 Mg Ampul.Neb 3 Ml INHALATION 3 ml Q6HRT LUCY Administration Atorvastatin Calcium 40 mg 11/14/24 09:00 Atorvastatin 40 Mg Tablet PO DAILY LUCY Carvedilol 6.25 mg 11/14/24 09:00 Carvedilol 6.25 Mg Tablet PO Q12HR LUCY Desmopressin Acetate 0.2 mg 11/14/24 21:00 Desmopressin Acetate 0.1 Mg Tablet PO HS LUCY Doxycycline Hyclate 100 mg 11/14/24 09:00 Doxycycline Hyclate 100 Mg Tablet PO Q12HR LUCY Escitalopram Oxalate 10 mg 11/14/24 21:00 Escitalopram Oxalate 10 Mg Tablet PO HS LUCY Fluticasone/Umeclidinium/Vilanterol 1 puff 11/14/24 08:00 11/14/24 08:14 Fluticasone/Umeclidin/Vilanter 200-62.5-25 Mcg Ellipta INHALATION 1 puff DAILYRT LUCY Administration Furosemide 20 mg 11/14/24 09:00 Furosemide 20 Mg Tablet PO QAM LUCY Guaifenesin 1,200 mg 11/14/24 09:00 Guaifenesin 12 Hr 600 Mg Tabcr PO Q12HR LUCY Vancomycin HCl 1,000 mg in 250 mls @ 250 mls/hr 11/14/24 23:00 Vancomycin 1,000 Mg/Ns 250 Ml IVPB Q24H LUCY Sodium Chloride 1,000 mls @ 125 mls/hr 11/14/24 02:31 11/14/24 06:06 Normal Saline Iv IV CONT 11/14/24 10:25 125 mls/hr .Q8H ONE Administration Cefepime HCl 2 gm in 50 mls @ 100 mls/hr 11/14/24 03:00 06/13/25 04:25 Maxipime 2 Gm/Ns 50 Ml IVPB 100 mls/hr Q12H LUCY Administration Metronidazole 500 mg in 100 mls @ 100 mls/hr 11/14/24 04:00 11/14/24 04:59 Flagyl 500 Mg/Iso Soln 100 Ml IVPB 100 mls/hr Q8H LUCY Administration Lisinopril 40 mg 11/14/24 09:00 Lisinopril 20 Mg Tablet PO QAM LUCY Melatonin 5 mg 11/14/24 21:00 Melatonin 5 Mg Tablet PO QHS [facility] Radiology Results: ITS Impressions Chest X-Ray 11/13/24 18:58 IMPRESSION: Prominent right hilum is noted. Further evaluation to exclude underlying mass is advised. Fibrotic/emphysematous changes of the lungs with possible superimposed pneumonitis on the right side. Chest CTA 11/13/24 21:07 IMPRESSION: 1. No pulmonary embolism. 2. Mass measuring 4.1 x 2.9 cm in the right lower lobe. Further evaluation advised. Smaller nodule is seen adjacent to this mass in the right lower lobe area. 3. interstitial and alveolar opacification in the right middle , lower and upper lobes and left lower lobe suggestive of pneumonitis. 4. Extensive emphysematous changes seen bilaterally. 5. Right hilar and mediastinal lymphadenopathy. 6. The proximal abdominal aorta measures 3 cm. Labs Labs: Laboratory Results - last 24 hr 11/13/24 11/13/24 11/13/24 18:06 18:07 18:21 WBC 14.5 H RBC 4.37 Hgb 13.3 Hct 42.3 MCV 96.8 MCH 30.4 MCHC 31.4 L RDW 15.2 H Plt Count 233 MPV 9.0 Immature Gran % (Auto) 0.5 Neut % (Auto) 77.5 H Lymph % (Auto) 12.1 L Mcdowell % (Auto) 8.9 H Eos % (Auto) 0.7 Baso % (Auto) 0.3 Lymph # (Auto) 1.75 Mcdowell # (Auto) 1.3 H Eos # (Auto) 0.1 Baso # (Auto) 0.0 Abs Immat Gran (auto) 0.07 H Absolute Neuts (auto) 11.2 H Absolute Nucleated RBC 0.000 Nucleated RBC % 0.0 PT 14.0 INR 1.1 APTT 29.6 Puncture Site Right radial ABG pH 7.458 H ABG pCO2 34.1 L ABG pO2 70.3 L ABG PO2/FiO2 Ratio 2.51 ABG HCO3 23.6 ABG O2 Saturation 95.1 ABG O2 Content 17.3 ABG Base Excess 0.3 A-a Gradient 89.1 Oxyhemoglobin 88.9 L Total Hemoglobin 13.8 O2 Delivery Device Nasal cannula O2 Liters/Min 2.0 FiO2 28 Sodium 135 L Potassium 3.3 L Chloride 102 Carbon Dioxide 25 Anion Gap 8 BUN 10 Creatinine 0.89 Estim Creat Clear Calc 42 Estimated GFR > 60 Glucose 101 Lactic Acid 1.7 Calcium 8.8 Magnesium 2.2 Total Bilirubin 0.8 AST 27 ALT 19 Alkaline Phosphatase 125 Troponin I 0.025 C-Reactive Protein 15.1 H Total Protein 7.2 Albumin 3.7 Urine Color Urine Appearance Urine pH Ur Specific [place] Urine Protein Urine Glucose (UA) Urine Ketones Ur Blood (Man) Urine Nitrate Urine Bilirubin Urine Urobilinogen Leukocyte Esterase Rfl Urine RBC Urine WBC Ur Squamous Epith Cells Urine Bacteria Urine Casts Nasal MRSA (PCR) Influenza A (RT-PCR) Negative Influenza B (RT-PCR) Negative RSV (RT-PCR) Negative SARS-CoV-2 RNA (RT-PCR) Negative 11/13/24 11/14/24 11/14/24 22:32 02:51 06:26 WBC 9.6 RBC 4.00 L Hgb 12.0 Hct 39.7 MCV 99.3 MCH 30.0 MCHC 30.2 L RDW 15.1 H Plt Count 198 MPV 9.0 Immature Gran % (Auto) 0.4 Neut % (Auto) 91.7 H Lymph % (Auto) 7.0 L Mcdowell % (Auto) 0.7 L Eos % (Auto) 0.0 Baso % (Auto) 0.2 Lymph # (Auto) 0.67 L Mcdowell # (Auto) 0.1 Eos # (Auto) 0.0 Baso # (Auto) 0.0 Abs Immat Gran (auto) 0.04 H Absolute Neuts (auto) 8.8 H Absolute Nucleated RBC 0.000 Nucleated RBC % 0.0 PT INR APTT Puncture Site ABG pH ABG pCO2 ABG pO2 ABG PO2/FiO2 Ratio ABG HCO3 ABG O2 Saturation ABG O2 Content ABG Base Excess A-a Gradient Oxyhemoglobin Total Hemoglobin O2 Delivery Device O2 Liters/Min FiO2 Sodium 137 Potassium 4.8 Chloride 112 H Carbon Dioxide 21 L Anion Gap 4 BUN 8 Creatinine 0.78 Estim Creat Clear Calc 49 Estimated GFR > 60 Glucose 131 H Lactic Acid Calcium 7.7 L Magnesium 2.0 Total Bilirubin AST ALT Alkaline Phosphatase Troponin I C-Reactive Protein Total Protein Albumin Urine Color Yellow Urine Appearance Clear Urine pH 6.5 Ur Specific [place] 1.015 Urine Protein Negative Urine Glucose (UA) Negative Urine Ketones Trace H Ur Blood (Man) Trace-intact H Urine Nitrate Negative Urine Bilirubin Negative Urine Urobilinogen 0.2 Leukocyte Esterase Rfl Negative Urine RBC 0-2 Urine WBC 0-5 Ur Squamous Epith Cells None seen Urine Bacteria None seen Urine Casts 0-2 Nasal MRSA (PCR) Not detected Influenza A (RT-PCR) Influenza B (RT-PCR) RSV (RT-PCR) SARS-CoV-2 RNA (RT-PCR) Quality VTE Prophylaxis VTE prophylaxis: mechanical ordered
[2024-11-14] MEDS: carvediloL 6.25 MG TABLET PO ×2 (12:42→20:33)
[2024-11-14] MEDS: FUROSEMIDE 20 MG TABLET PO (12:42)
[2024-11-14] MEDS: DOXYCYCLINE HYCLATE 100 MG TABLET PO ×2 (12:42→20:33)
[2024-11-14] MEDS: lisinopriL 20 MG TABLET 40 MG PO (12:43)
[2024-11-14] MEDS: ATORVASTATIN 40 MG TABLET PO (12:43)
[2024-11-14] MEDS: guaiFENesin 12 HR 600 MG TABCR 1200 MG PO ×2 (12:43→20:32)
--- NOTE | 2024-11-14 12:52 | PC.NURSE ---
pt had been NPO for scheduled biopsy, it was subsequently cancelled and pt was able to order lunch, meds administered with meal
--- NOTE | 2024-11-14 14:05 | P.CONPL_ITS ---
Assessment and Plan Assessment and plan (1) Postobstructive pneumonia: Code(s): J18.9 - Pneumonia, unspecified organism Status: Acute Assessment and Plan: Patient with worsening respiratory symptoms as an outpatient was treated with a Z-Gray and completed this on 11/10/2024 lung with steroids and felt no better. She is afebrile. She does have a leukocytosis with an elevated CRP at 15.1. CT scan shows right lower lobe consolidations with some infiltrate. COVID, influenza, RSV RT PCR assay negative. Blood cultures are pending. MRSA nasal swab negative. 11/14/24: Plan: I will treat for pneumonia including postobstructive pneumonia as she may have lung cancer in the right lower lobe. Sputum culture ordered.Urine Legionella, urine pneumococcal and serum mycoplasma IgM already sent. I will send a respiratory pathogen panel. I will send a procalcitonin on 11/15/2024. I will repeat a CRP on 11/15/2024. Patient was initiated on azithromycin, meropenem and vancomycin. This was changed to vancomycin, cefepime, Flagyl and doxycycline All started on 11/14/2024 when she was admitted to the floor. MRSA nasal swab negative and I will discontinue vancomycin. Inpatient Pulmonary Services will resume on 11/17/2024, call with questions. Discussed with Lucia Howard. (2) Chronic obstructive pulmonary disease: Code(s): J44.9 - Chronic obstructive pulmonary disease, unspecified Status: Acute Assessment and Plan: Regarding her COPD, 118 hundred eighteen pack year tobacco use currently smoking 2 packs per day. She was diagnosed approximately 10 years ago. She does not remember having PFTs. I have no PFTs. For CT in our system from 06/11/[address] scan from 11/13/2024 demonstrates severe panlobular emphysema all lung hall. Patient tells me 10 years ago she had a collapsed lung requiring a chest tube and hospitalization and recovered. One year ago she could walk 2 blocks. Three months ago which is the last time she felt normal she could walk 1 block and was limited by leg pain. Patient had a fall and was admitted to [facility] approximately 6 months ago and at that time she was prescribed oxygen. The oxygen was delivered to her house but she did not know how to use it and returned it. At home she measures her pulse oximetry sitting on room air and this ranges from 81 to 91%. 11/13/2024: ABG on 2 L 7.46/34/70. started on trelegy 200 a few weeks ago and says that this does help her. 11/13/2024: Patient returned to the emergency room with worsening shortness of breath, cough and congestion. Room air saturations were 81%. She had rales and rhonchi. White blood cell count 14.5, eosinophils 0.7%. Creatinine 0.89. CRP 15.1. COVID, influenza and RSV RT PCR assay negative. MRSA nasal swab negative. ABG on 2 L 7.46/34/70. Patient was initiated on azithromycin, meropenem and vancomycin. This was changed to vancomycin, cefepime, Flagyl and doxycycline when she was admitted to the floor. 11/13/2024: Patient tells me she feels the same as she did yesterday. She has shortness of breath at rest and with activity and has not been out of bed. She had previously been on 3 L nasal cannula but the nurse told me her saturations went to 77% about 3 minutes before I entered. She was placed on 5 L and her saturations were 91%. She complains of being tired, no chest pain no hemoptysis. she says the phlegm is increased over the last 3 months and sometimes he gets stuck in her throat. Patient may or may not be having a COPD exacerbation. Agree with treatment for pneumonia including postobstructive pneumonia while holding off on systemic steroids. Plan: I will place the patient on DuoNebs q.6 hours, I will add nebulized budesonide 500 mcg b.i.d.. This represents maximal bronchodilators and I will discontinue trilogy. Patient is having difficulty expectorating. Continue guaifenesin 1200 mg p.o. b.i.d., Cornet flutter valve q.2 hours while awake, I will add Mucomyst nebulizer 200 mg q.6 hours. blood cultures are pending. Urine Legionella, urine pneumococcal and serum mycoplasma IgM already sent. I will send a respiratory pathogen panel. (3) Acute respiratory failure with hypoxia: Code(s): J96.01 - Acute respiratory failure with hypoxia Status: Acute Assessment and Plan: The patient was discharged from [facility] approximately 6 months ago after a fall and was prescribed oxygen. The oxygen was delivered to her house but she did not know how to use it and returned it. At home she measures her pulse oximetry sitting on room air and this ranges from 81 to 91%. ABG on 2 L 7.46/34/70. There is no evidence of hypercarbic respiratory failure. Plan: Goal saturation 90-94%, currently the patient is on 3 L with saturations 91%. Adjust accordingly. (4) Malignant neoplasm of lower lobe, right bronchus or lung: Code(s): C34.31 - Malignant neoplasm of lower lobe, right bronchus or lung Status: Acute Assessment and Plan: Patient is followed by Oncology, Dr. Palomo, last note I have is from 10/24/2024. Patient had a CT-guided biopsy of a right lung mass on 07/21/2022 with scant atypical cells. In the comment it says morphologically compatible with carcinoma but is also morphologically compatible with reactive tissue. Completed SBRT 10/09/2022. CT scan 10/20/2024 showed a 2.1 cm right lower lobe nodule consolidation possibility of neoplasm. The mass has increased in size from the previous CT when it was 1.[address]-guided biopsy of the mass ordered and based on the pathology we will decide about PET scan. 11/12/2024: Patient presented to the hospital for outpatient CT-guided lung biopsy with low saturations and was sent to the emergency room. CT-guided Biopsy cannot be performed at [facility] as she requires oxygen. 11/13/2024: CT scan with 4.1 x 2.9 cm right lower lobe mass abutting the pleura and 1.4 cm right lower lobe nodule abutting the pleura. Bilateral hilar lymphadenopathy. 11/14/2024: Plan: Bronchoscopic biopsy at [facility] is not a consideration given the very low yield of the procedure. If tissue diagnosis is needed per oncology the patient will need to be referred to a higher level of care facility for CT-guided biopsy or consultation with interventional computer forensics technician for possible bronchoscopy with EBUS sampling of the hilar lymph nodes. I discussed this with the patient and currently the patient is refusing referral to a [facility]. Consider discussing with her oncologist, Dr. Palomo. History of Present Illness History of Present Illness Consult date: 11/14/24 Chief complaint: shortness of breath, pneumonia Narrative: 11/14/2024: This is a new pulmonary consult for lung biopsy. 73-year-old with a history of hypertension, hyperlipidemia, GERD, Subclavian artery stenosis status post stent, renal artery stenosis, Peripheral artery disease status post right carotid endarterectomy 1995, left carotid endarterectomy .COPD, radiographic lung cancer status post XRT. Regarding her COPD she was diagnosed approximately 10 years ago. She does not remember having PFTs. patient tells me 10 years ago she had a collapsed lung requiring a chest tube and hospitalization and recovered.One year ago she could walk 2 blocks. Three months ago which is the last time she felt normal she could walk 1 block and was limited by leg pain. Patient had a fall and was admitted to [facility] approximately 6 months ago and at that time she was prescribed oxygen. The oxygen was delivered to her house but she did not know how to use it and returned it. At home she measures her pulse oximetry sitting on room air and this ranges from 81 to 90 1%. Patient smoked tobacco from age 14 to current at 2 packs per day for 118 pack years, patient was exposed to secondhand smoke from both of her parents. 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 Patient is followed by Oncology, Dr. Palomo, last note I have is from 10/24/2024. Patient had a CT-guided biopsy of a right lung mass on 07/21/2022 with scant atypical cells. In the comment it says morphologically compatible with carcinoma but is also morphologically compatible with reactive tissue. Completed SBRT 10/09/2022. CT scan 10/20/2024 showed a 2.1 cm right lower lobe nodule consolidation possibility of neoplasm. The mass has increased in size from the previous CT when it was 1.[address]-guided biopsy of the mass ordered and based on the pathology we will decide about PET scan. 11/05/2024: PCP office visit note for 1 week of cough and congestion. Room air saturations were listed as 75%. She had rhonchi and wheezes and was prescribed a Z-Gray and steroids. Patient took these medicines but felt no improvement. 11/12/2024: Patient presented to the hospital for outpatient CT-guided lung biopsy with low saturations and was sent to the emergency room. She had a white count of 13.4, creatinine 0.85, BNP 1720 and required 2 L nasal cannula for saturation 93%. Patient left AMA. 11/13/2024: Patient returned to the emergency room with worsening shortness of breath, cough and congestion. Room air saturations were 81%. She had rales and rhonchi. White blood cell count 14.5, eosinophils 0.7%. Creatinine 0.89. CRP 15.1. COVID, influenza and RSV RT PCR assay negative. MRSA nasal swab negative. ABG on 2 L 7.46/34/70. Patient was initiated on azithromycin, meropenem and vancomycin. This was changed to vancomycin, cefepime, Flagyl and doxycycline when she was admitted to the floor. 11/13/2024: Patient tells me she feels the same as she did yesterday. She has shortness of breath at rest and with activity and has not been out of bed. She had previously been on 3 L nasal cannula but the nurse told me her saturations went to 77% about 3 minutes before I entered. She was placed on 5 L and her saturations were 91%. She complains of being tired, no chest pain no hemoptysis. she says the phlegm is increased over the last 3 months and sometimes he gets stuck in her throat. DATA 11/13/2024: CTA chest PE protocol History: 73 years Female with . shortness of breath . Comparison: October 20, 2024 Findings: PULMONARY ARTERIES: No pulmonary embolus. VISUALIZED THORACIC INLET: Normal. MEDIASTINUM: Aorta/coronary arteries: Mild atheromatous disease. Heart/other: The heart is not enlarged. Lymph nodes: Prevascular lymphadenopathy is seen with the largest measures 1.6 cm. Bilateral hilar lymphadenopathy more in the right side. Subcarinal calcified lymph notes. Calcified lymph node in the left hilum. LUNGS: Emphysematous changes of the lungs. A mass is seen in the right lower lobe measuring 4.1 x 2.9 cm. Further evaluation advised. Smaller nodule is seen medially in the right lower lobe measuring 1.4 cm. Minimal interstitial opacification is seen in the right middle lobe and right upper lobe. Interstitial opacification also seen around the mass in the right lower lobe. Minimal interstitial opacification the left lung base. Right pleural effusion. No pulmonary nodules . No pneumothorax. VISUALIZED UPPER ABDOMEN: Proximal abdominal aorta measures 3 cm. Stent is seen in the left renal artery. Status post cholecystectomy. Slightly prominent pancreatic duct. Prominent CBD measuring 1.1 cm.. Otherwise, the visualized upper abdomen is normal. MUSCULOSKELETAL: Soft tissues: The superficial soft tissues are normal. Bones: Age appropriate degenerative changes of the spine. Increased kyphosis. Osteopenia of the bones. IMPRESSION: 1. No pulmonary embolism. 2. Mass measuring 4.1 x 2.9 cm in the right lower lobe. Further evaluation advised. Smaller nodule is seen adjacent to this mass in the right lower lobe area. 3. interstitial and alveolar opacification in the right middle , lower and upper lobes and left lower lobe suggestive of pneumonitis. 4. Extensive emphysematous changes seen bilaterally. 5. Right hilar and mediastinal lymphadenopathy. 6. The proximal abdominal aorta measures 3 cm. 07/10/2024: EXAMINATION: PET skull to mid thigh DATE: 07/10/2024 12:18 INDICATION: Malignant neoplasm of lung. TECHNIQUE: Blood glucose level was 93 mg/dL. 10.966 mCi of 18-fluorodeoxyglucose (18-FDG) was administered i.v. Low dose computed tomography (CT) images were acquired from the base of the brain to the proximal thighs for attenuation correction and anatomic localization. Automated exposure control was employed. Dose-length product (DLP) was 805 mGy-cm. Positron emission tomography (PET) images were acquired in the same distribution. COMPARISON: PET/CT 06/01/2022, chest CT 06/18/2024, 05/07/23 FINDINGS: Head/neck: There are likely changes of ocular lens replacement surgeries. There are scattered areas of low attenuation in the cerebral white matter, likely chronic small vessel ischemic disease. 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 There are no pathologically enlarged lymph nodes. Chest: There is a stent in proximal left subclavian artery. There is severe emphysema. A calcified left lung nodule and calcified left hilar and mediastinal lymph nodes are consistent with old granulomatous disease. There are airspace opacities in the lower lobes, right worse than left, with increased activity. There is increased activity in normal-sized and borderline-enlarged right hilar and mediastinal lymph nodes. No pleural effusion. The heart size is normal. There are coronary artery calcifications. No pericardial effusion. Abdomen/pelvis/proximal thighs: The liver is normal. There are changes of cholecystectomy. Calcifications in the spleen are consistent with old granulomatous disease. The pancreas, adrenal glands, and kidneys are normal. There are stents in the left bilateral common iliac arteries and left external iliac artery. There are no dilated loops of bowel. 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 There is a stent in left renal artery. There are no pathologically enlarged lymph nodes. There is no free intraperitoneal fluid. There is no osseous malignancy. There is subcutaneous old fat necrosis in right buttock. IMPRESSION: 1. Airspace opacities with increased activity in the lower lobes, right worse than left, consistent with radiation pneumonitis. 2. Severe emphysema. 3. Increased activity in normal-sized and borderline-enlarged right hilar and mediastinal lymph nodes, which may be reactive or metastatic disease. 06/18/2024: EXAMINATION: CT diagnostic chest w con INDICATION: C34.31 - Malignant neoplasm of lower lobe, right bronchus... COMPARISON: 02/22/2024 and 09/11/2022 FINDINGS: Severe emphysema with biapical pleural-parenchymal scarring. Calcified nodule at the left apex along with calcified left hilar and mediastinal lymph nodes consistent with old granulomatous disease. There is septal line thickening bilaterally basilar lower lobes, right middle lobe and lingula. Interval increase in size of a high attenuation potentially enhancing 1.7 x 1.4 cm spiculated nodule in the superior segment of the right lower lobe which measured approximately 1.2 x 1.1 cm on 12/13/2023. No significant interval change in a more caudal and lower density peripheral bandlike region of consolidation extending approximately 6 cm medial laterally measuring up to 1.5 cm in thickness likely related to changes of chronic radiation pneumonitis. No pleural effusion. Heart size is normal. Atherosclerotic coronary artery calcific location. No pericardial effusion. Thoracic aorta is normal in caliber with no dissection. There is stenting at the origin of the left subclavian artery. No significant change since 09/11/2022 in mild right hilar lymphadenopathy which favors reactive or metastatic lymph nodes. No other pathologically enlarged thoracic lymphadenopathy. A few calcified splenic granulomata. Mild to moderate thoracic spondylosis with bridging osteophytes at multiple levels consistent with diffuse idiopathic skeletal hyperostosis (DISH). IMPRESSION: 1. Enlargement of a now 1.7 x 1.4 cm higher attenuation, likely enhancing spiculated nodule in the superior segment of the right lower lobe suspicious for progression of primary lung cancer. 2. No interval change in a more caudal peripheral band of consolidation in the right lower lobe likely related to chronic radiation fibrosis for reported prior treatment of an earlier mildly FDG avid nodule at this location suspicious for lung cancer. 3. Severe emphysema. 4. Mild right hilar lymphadenopathy unchanged since 09/11/2022 which in the absence of interval treatment would favor reactive over metastatic lymphadenopathy. 11/08/2023: Echo Summary 1. Left ventricular chamber dimension is normal. 2. Left ventricular systolic function is normal, estimated at 65-70%. 3. The left ventricular diastolic function is grade I diastolic dysfunction. 4. Global longitudinal strain is abnormal at -15 %. 5. Right ventricular systolic function is normal. 6. Left atrial chamber dimension is mildly enlarged. 7. There is mild tricuspid valve regurgitation. 8. There is mild pulmonic regurgitation. Left Ventricle Left ventricular chamber dimension is normal. Left ventricular systolic function is normal, estimated at 65-70%. There is no increased left ventricular wall thickness. The left ventricular diastolic function is grade I diastolic dysfunction. Global longitudinal strain is abnormal at -15 %. Right Ventricle Right ventricular chamber dimension is normal. Right ventricular systolic function is normal. Left Atria Left atrial chamber dimension is mildly enlarged. Right Atria Right atrial chamber dimension is normal. Atrial Septum Intact interatrial septum visualized by color flow imaging. Review of Systems 2 Constitutional: Constitutional: Reports no additional constitutional complaints Eyes: Eyes: Reports no additional eye complaints ENT: Reports system reviewed and no additional complaints, except as documented Cardiovascular: Cardiovascular: Reports no additional cardiovascular complaints Respiratory: Respiratory: Reports no additional respiratory complaints Gastrointestinal: Gastrointestinal: Reports no additional gastrointestinal complaints Musculoskeletal: Musculoskeletal: Reports no additional musculoskeletal complaints Neurologic: Reports system reviewed and no additional complaints, except as documented Psychiatric: Psychiatric: Reports no additional psychiatric complaints Endocrine: Endocrine: Reports no additional endocrine complaints Hematologic/Lymphatic: Hematologic/Lymphatic: Reports no additional hematologic/lymphatic complaints Allergic/Immunologic: Allergic/Immunologic: Reports no additional allergic/immunologic complaints [facility] Past Medical History Medical History (Updated 11/14/24 @ 02:10 by Jacqui Shen PA-C) Carotid artery disease Peripheral vascular disease Chronic obstructive pulmonary disease Transient ischemic attack Gastroesophageal reflux disease Hypertension Osteoporosis History of radiation therapy right lower lobe 2022 Malignant neoplasm of lower lobe, right bronchus or lung Depression Dyslipidemia Anxiety Surgical History Surgical History (Updated 11/14/24 @ 02:10 by Jacqui Shen PA-C) History of bilateral carotid endarterectomy Status post angioplasty with stent iliac, subclavian, renal arteries History of cholecystectomy History of total hysterectomy with bilateral salpingo-oophorectomy (BSO) Social History Social History (Updated 11/14/24 @ 02:10 by Jacqui Shen PA-C) Social History: Surrogate medical decision maker: Yaakov Bocanegra, son. Code status: Full code. Smoking packs per day: 2 Smoking cigarettes per day: 40.0 Years smoked: 40 Smoking pack-years: 80.00 Smoking status: Current every day smoker Tobacco type: cigarettes Additional smoking assessment comments: weaning off cigarettes Alcohol intake: former Drinks per week: 5 Substance use: never Substance use type: does not use Do You Feel Safe in your Home?: Yes Lack of Transportation: No Lack of Food: Never True Current Housing: I Have Housing Concerned About Future Housing: No Difficulty Paying Gas/Electric Bills: No Difficulty Paying for Meds: No Currently Unemployed: No Education: Don't Know Difficulty w/ Childcare or Family Care: No Living arrangements: alone Occupation/Education: retired Spiritual care concerns: No Meds Home Medications and Allergies Home Medications ?Medication ?Instructions ?Recorded ?Confirmed ?Type desmopressin 0.2 mg tablet 0.2 mg PO HS 02/20/22 11/14/24 History melatonin 5 mg capsule 5 mg PO QHS 08/29/22 11/14/24 History atorvastatin 40 mg tablet 40 mg PO DAILY 90 days #90 tabs 08/13/24 11/14/24 Rx carvedilol 12.5 mg tablet 6.25 mg (1/2 x 12.5 mg) PO BID 90 08/13/24 11/14/24 Rx days #90 tabs clopidogrel 75 mg tablet (Plavix) 75 mg PO DAILY #90 tabs 08/13/24 11/14/24 Rx lisinopril 40 mg tablet 40 mg PO QAM 90 days #90 tabs 08/13/24 11/14/24 Rx escitalopram oxalate 10 mg tablet 10 mg PO HS #90 tabs 09/29/24 11/14/24 Rx pantoprazole 20 mg tablet,delayed 20 mg PO QAM PRN Indigestion #90 09/29/24 11/14/24 Rx release tabs furosemide 20 mg tablet 20 mg PO QAM #90 tabs 10/02/24 11/14/24 Rx albuterol 90 mcg-budesonide 80 2 inh inhalation QID PRN shortness 11/05/24 11/14/24 Rx mcg/actuation HFA aerosol inhaler of breath and cough #10.7 grams (Airsupra) fluticasone fur. 200 mcg-umeclid 1 inh inhalation DAILY #60 ea 11/05/24 11/14/24 Rx 62.5 mcg-vilant 25 mcg inhalat.powder (Trelegy Ellipta) Allergies Allergy/AdvReac Type Severity Reaction Status Date / Time Penicillins Allergy Severe BREATHING Verified 11/14/24 01:12 DIFFICULTY, SWELLING Vital Signs Vital Signs - 24 hr 11/13/24 17:46 11/13/24 17:51 11/13/24 18:03 Temperature 37.2 C Pulse Rate 81 77 Respiratory Rate 20 Blood Pressure 168/52 H Pulse Oximetry 82 L 98 Oxygen Delivery Room Air Nasal Cannula Oxygen Flow Rate 2 Fraction of Inspired Oxygen 11/13/24 18:05 11/13/24 18:09 11/13/24 19:00 Temperature Pulse Rate 85 83 Respiratory Rate 23 H 16 Blood Pressure 162/57 H 166/66 H Pulse Oximetry 98 95 98 Oxygen Delivery Nasal Cannula Oxygen Flow Rate 2 Fraction of Inspired Oxygen 11/13/24 19:30 11/13/24 20:19 11/13/24 21:07 Temperature Pulse Rate 87 80 83 Respiratory Rate 21 H 21 H 24 H Blood Pressure 172/64 H 176/66 H 191/76 H Pulse Oximetry 97 100 96 Oxygen Delivery Oxygen Flow Rate Fraction of Inspired Oxygen 11/13/24 21:48 11/13/24 22:46 11/14/24 00:09 Temperature Pulse Rate 77 69 102 H Respiratory Rate 20 20 20 Blood Pressure 178/64 H 197/72 H 179/60 H Pulse Oximetry 97 96 94 Oxygen Delivery Oxygen Flow Rate Fraction of Inspired Oxygen 11/14/24 01:05 11/14/24 03:00 11/14/24 03:05 Temperature 36.7 C Pulse Rate 81 Respiratory Rate 18 Blood Pressure 92/60 L Pulse Oximetry 93 88 L 94 Oxygen Delivery Nasal Cannula Nasal Cannula Oxygen Flow Rate 3 4 Fraction of Inspired Oxygen 11/14/24 06:30 11/14/24 08:10 11/14/24 08:10 Temperature 36.4 C Pulse Rate 60 85 Respiratory Rate 14 20 Blood Pressure 117/89 Pulse Oximetry 98 92 Oxygen Delivery Nasal Cannula Oxygen Flow Rate 3 Fraction of Inspired Oxygen 32 11/14/24 08:20 11/14/24 08:25 11/14/24 12:42 Temperature Pulse Rate 88 88 80 Respiratory Rate 20 20 Blood Pressure Pulse Oximetry 92 Oxygen Delivery Nasal Cannula Oxygen Flow Rate 3 Fraction of Inspired Oxygen 32 11/14/24 12:46 11/14/24 13:35 11/14/24 13:40 Temperature Pulse Rate 112 H 84 Respiratory Rate 28 H 20 Blood Pressure 178/57 H Pulse Oximetry 77 L Oxygen Delivery Nasal Cannula Oxygen Flow Rate 3 Fraction of Inspired Oxygen 32 11/14/24 13:41 11/14/24 13:44 11/14/24 13:48 Temperature Pulse Rate 92 91 Respiratory Rate 24 H 20 Blood Pressure Pulse Oximetry 90 77 L Oxygen Delivery Nasal Cannula Nasal Cannula Oxygen Flow Rate 5 5 Fraction of Inspired Oxygen 32 Exam 2 Const: General: cooperative and comfortable Orientation/consciousness: o riented to person, oriented to place and oriented to time Other: Ill-appearing HENMT: Head: normal to inspection Ears: hearing grossly normal bilaterally Eyes: General: appearance normal, both eyes and all related structures Neck: Neck: normal visual inspection Chest: Chest palpation & inspection: normal inspection of the chest Resp: Effort & Inspection: normal respiratory effort and able to speak in complete sentences Auscultation: no crackles, no rales, no rhonchi, no wheezes and lung sounds not diminished Other: crackles throughout with no wheezes. Cardio: Jugular venous distension: no JVD GI: Inspection: normal to inspection GI Palp: No abdominal tenderness Skin: General skin exam: normal color Neuro: General: oriented to person, oriented to place and oriented to time Extrem: General: normal to inspection Psych: Appearance: grossly normal Results Laboratory Findings 11/14/24 02:51 06/13/25 02:51 ABG, PT/INR, D-dimer: ABG ABG pH 7.458 (7.350-7.450) H 11/13/24 18:07 ABG pCO2 34.1 mmHg (35.0-45.0) L 11/13/24 18:07 ABG pO2 70.3 mmHg (80.0-100.0) L 11/13/24 18:07 ABG O2 Saturation 95.1 % (95.0-100.0) 11/13/24 18:07 PT/INR, D-dimer PT 14.0 Seconds (11.1-14.7) 11/13/24 18:07 INR 1.1 11/13/24 18:07 Abnormal lab findings: Abnormal Labs 11/13/24 11/13/24 11/14/24 18:06 18:07 02:51 WBC 14.5 H RBC 4.00 L MCHC 31.4 L 30.2 L RDW 15.2 H 15.1 H Neut % (Auto) 77.5 H 91.7 H Lymph % (Auto) 12.1 L 7.0 L [place] % (Auto) 8.9 H 0.7 L Lymph # (Auto) 0.67 L [place] # (Auto) 1.3 H Abs Immat Gran (auto) 0.07 H 0.04 H Absolute Neuts (auto) 11.2 H 8.8 H ABG pH 7.458 H ABG pCO2 34.1 L ABG pO2 70.3 L Oxyhemoglobin 88.9 L Sodium 135 L Potassium 3.3 L Chloride 112 H Carbon Dioxide 21 L Glucose 131 H Calcium 7.7 L C-Reactive Protein 15.1 H Urine Ketones Ur Blood (Man) 11/14/24 06:26 WBC RBC MCHC RDW Neut % (Auto) Lymph % (Auto) [place] % (Auto) Lymph # (Auto) [place] # (Auto) Abs Immat Gran (auto) Absolute Neuts (auto) ABG pH ABG pCO2 ABG pO2 Oxyhemoglobin Sodium Potassium Chloride Carbon Dioxide Glucose Calcium C-Reactive Protein Urine Ketones Trace H Ur Blood (Man) Trace-intact H Diagnostic Findings Additional studies: ITS Impressions Chest X-Ray 11/13/24 18:58 IMPRESSION: Prominent right hilum is noted. Further evaluation to exclude underlying mass is advised. Fibrotic/emphysematous changes of the lungs with possible superimposed pneumonitis on the right side. Chest CTA 11/13/24 21:07
[2024-11-14] MEDS: DESMOPRESSIN ACETATE 0.1 MG TABLET 0.2 MG PO (20:32)
[2024-11-14] MEDS: ESCITALOPRAM OXALATE 10 MG TABLET PO (20:32)
[2024-11-14] MEDS: ACETYLCYSTEINE 20% INHAL SOLN 800 MG/4 ML VIAL 200 MG INHALATION (20:45)
[2024-11-14] MEDS: BUDESONIDE RESPULE NEB 0.5 MG/2 ML AMP INHALATION (20:45)
[2024-11-15] VITALS (17 sets, daily range): BP systolic 155–200; BP diastolic 70–95; PULSE 66–101; RESP 18–24; TEMP 36.2–36.7; O2SAT 90–100
[2024-11-15] MEDS: IPRATROPIUM 0.5 MG/ALBUTEROL SULFATE 2.5 MG AMPUL.NEB 3 ML INHALATION ×4 (02:15→20:08)
[2024-11-15] MEDS: ACETYLCYSTEINE 20% INHAL SOLN 800 MG/4 ML VIAL 200 MG INHALATION ×4 (02:15→20:08)
[2024-11-15] MEDS: CEFEPIME 2 GM/NS 50 ML 2 GM/50 ML BAG IVPB ×2 (02:25→15:38)
[2024-11-15] MEDS: LORazepam INJ (*CRX) 2 MG/ML VIAL 0.25 MG IV PUSH (03:28)
[2024-11-15] MEDS: metroNIDAZOLE 500 MG/ISO 100ML 500 MG/100 ML BAG 100 MG IVPB ×3 (03:29→20:27)
[2024-11-15 05:49] LABS: Basophils Percent Auto 0.1 % (0.2-1.2); Eosinophils Percent Auto 0.1 % (0-4.4); Hematocrit 38.3 % (37.0-47.0); Hemoglobin 11.9 g/dL (12.0-15.0); Immature Granulocyte Absolute 0.14 K/mm3 (0.00-0.031); Immature Granulocyte Percent A 0.8 % (0-0.5); Lymphocytes Absolute Auto 1.35 K/mm3 (0.9-3.2); Lymphocytes Percent Auto 7.4 % (18.3-44.2); Mean Corpuscular HGB Conc 31.1 g/dl (32-36); Mean Corpuscular Hemoglobin 30.5 pg (26-34); Mean Corpuscular Volume 98.2 fl (80-100); Mean Platelet Volume 8.9 fl (7.4-10.4); Monocytes Absolute Auto 1.5 K/mm3 (0.1-0.6); Monocytes Percent Auto 8.2 % (2.6-8.5); Neutrophils Absolute Auto 15.2 K/mm3 (1.3-6.7); Neutrophils Percent Auto 83.4 % (45.5-73.1); Platelet Count Result 213 k/mm3 (150-375); Red Cell Distribution Width 15.2 % (11.5-14.5); White Blood Count 18.2 K/mm3 (4.5-10.0)
[2024-11-15 06:17] LABS: Alanine Aminotransferase 16 U/L (6-35); Alkaline Phosphatase 97 U/L (38-126); Anion Gap 6 mmol/L (4-12); Aspartate Amino Transferase 29 U/L (14-36); Bilirubin,Total 0.5 mg/dL (0.2-1.3); Blood Urea Nitrogen 11 mg/dL (7-17); CRP 4.9 mg/dL (<1.0); Calcium 7.7 mg/dL (8.4-10.2); Carbon Dioxide 23 mmol/L (22-30); Chloride 109 mmol/L (98-107); Estimated CRCL calculation 53 ml/min; Estimated Glomerular Filt Rate > 60; Glucose 90 mg/dL (65-110); Potassium 3.9 mmol/L (3.4-5.0); Sodium 138 mmol/L (137-145)
[2024-11-15 06:32] LABS: Procalcitonin 0.1 ng/mL
[2024-11-15] MEDS: BUDESONIDE RESPULE NEB 0.5 MG/2 ML AMP INHALATION ×2 (08:06→20:08)
[2024-11-15] MEDS: lisinopriL 20 MG TABLET 40 MG PO (08:52)
[2024-11-15] MEDS: FUROSEMIDE 20 MG TABLET PO (08:53)
[2024-11-15] MEDS: DOXYCYCLINE HYCLATE 100 MG TABLET PO ×2 (08:53→20:28)
[2024-11-15] MEDS: guaiFENesin 12 HR 600 MG TABCR 1200 MG PO ×2 (08:53→20:28)
[2024-11-15] MEDS: ATORVASTATIN 40 MG TABLET PO (08:53)
[2024-11-15] MEDS: carvediloL 6.25 MG TABLET PO (08:53)
--- NOTE | 2024-11-15 10:02 | P.PNIM_ITS ---
Progress Note: A&P Assessment and Plan (1) Acute respiratory failure with hypoxia: Code(s): J96.01 - Acute respiratory failure with hypoxia Status: Acute Assessment and Plan: Pt presented to the ED for evaluation of increased SOB, cough, increased sputum, and chills that has worsened over the last several days. -Chest CT shows an increase in a right lower lobe mass concerning for malignant as well as findings of pneumonia. -->She received azithromycin, meropenem, and vancomycin in the ED. -->Her antibiotics will be changed to cefepime (patient reports anaphylaxis to penicillin in the ; cefepime has a different structure and is considered safe to prescribed), doxycycline, metronidazole, and vancomycin to cover possible postobstructive pneumonia. -Continue scheduled bronchodilators. -Cornet Mucinex ordered to help mobilize secretions. -->Sputum culture pending, container at bedside and reminded her about the need for it. -She is currently on 3 L and admits that she was told a couple of months ago that she needs oxygen at home however she called the company and had them remove attending from her home as she did not know how to use it. She will need a home oxygen evaluation prior to discharge. 11/14: Pt still c/o of SOB but reports that she feels 100% than yesterday but I would feel better if I didn't have all this sputum. -Plan to continue with above plan as well as serial AM labs and O2 assessment -Pending PULM consult, see below. 11/15: Bump in WBC over night, will continue to monitor, re-imaging may be needed if continues to climb. Continue IV abx and breathing tx. CRP continues to be elevated but is down trending. Per nursing, pt went up to 8L of O2 overnight due to increased need and has been on since. Asked nursing to trial titrate down to baseline 3L NC to see how she does. Per PULM yesterday, pt desatted while he was in room due to mucus plug, may be related again last night? Pt appears to be less congested today. (2) Postobstructive pneumonia: Code(s): J18.9 - Pneumonia, unspecified organism Status: Acute Assessment and Plan: See above. (3) Right lower lobe lung mass: Code(s): R91.8 - Other nonspecific abnormal finding of lung field Status: Acute Assessment and Plan: Chest CTs performed in June and more recently October 2024 show a continued increase in the RLL nodule concerning for malignancy. She was scheduled for a CT-guided biopsy yesterday however she was hypoxic on arrival and the biopsy was canceled. She was then sent to the emergency department with plans for admission however she left against medical advice. -Continue to hold clopidogrel and she will be NPO after midnight for possible CT-guided lung biopsy tomorrow depending on the radiologist schedule. 11/14: -CT biopsy of lung ordered for today but per CT, unable to do if pt is actively using O2. Per nursing, pt does not use O2 at home, but, per hospitalist note, pt was told a couple of months ago that she needs O2 at home however she called the company and had them remove O2 from her home as she did not know how to use it. She will need a home oxygen evaluation prior to discharge. -->Upon interview today, pt states that she was not given any direction on how to work home O2, that is why she has not been using it -->Encouraged nursing to try to downtrend pt O2 while inpt to obtain biopsy. -->Pending PULM consult and appreciate their recommendations for lung mass work- up Pulm, Dr. Bañuelos, saw pt and updated me on plan, please see his thorough note. -Per pt report she is still smoking 2 ppd, 118 year hx. Pt recently went to PCP office for a cough and congestion on 11/05 and at that time her O2 sat was charted as 75%, pt was given Zpak and steroids and their of those tx worked. Also reporting home sats of 81-91% per pulse ox. Pt was given O2 delivered to her home in June 2024 and set all of the O2 back. -Goals of O2 90-94% -Plan to D/C vanc due to MRSA swab being negative, add echo, add on CPR and procal for AM labs, and add Mucomyst 200mg Q6 to help with sputum, and a resp pathogen panel. -Plan to continue with no systemic steroids, recs for adding Solumedrol 40mg Q6 x1 day and change to prednisone for the remaining x4 days if develops wheezing. -Pt will require higher level of care for biopsy due to O2 use, but declines going to [facility]. -I updated Dr. Palomo (pts onc) about her not being able to get the biopsy performed on 11/12 and the need for higher level of care for this but refusing transfer to [facility]. He recs f/u in his office to plan further intervention / treatment. -->Has been treated by Dr. Palomo in the past with radiation and the last biopsy that was attempted was in 2022 and it came back inconclusive Will continue to treat PNA and COPD exac with cefe, Doxy, and Flagyl for gram neg and abnormal PNA coverage. Pending ECHO, AM labs, VS, and breathing status. 11/15: Reiterated plan for onc f/u outpt to pt today, told her that I spoke to Dr. Palomo and this was his recommendation for further management. Pt agreeable with the plan. ECHO resulted unremarkable today. (4) Chronic obstructive pulmonary disease: Code(s): J44.9 - Chronic obstructive pulmonary disease, unspecified Status: Acute Assessment and Plan: Continue home meds, abx for PNA ordered (5) Hypertension: Code(s): I10 - Essential (primary) hypertension Status: Acute Assessment and Plan: Blood pressures have been running high and will be monitored closely for possible adjustments in medication depending on how she trends. -Her home medications have been reviewed and resumed as appropriate. 11/15: Pt BPs still running high, systolic 150/170. Increased home Coreg from 6.25mg BID to 12.5mg BID. Also ordered hyral PRN. Plan Continue to monitor pt and SOB assessment and lung sounds. Continue to trend labs (WBC especially), need for O2/assessment, pending sputum culture, and resp pathogen results. 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 Chest CTs done in June and more recently last month show a continued increase in the right lower lobe nodule concerning for malignancy. She was scheduled for a CT-guided biopsy yesterday however she was hypoxic on arrival and the biopsy was canceled. She was then sent to the emergency department with plans for admission however she left against medical advice. Since that time she has been feeling worse and endorses chills, an increase in sputum production, and shortness of breath. She denies documented fever, sore throat, chest pain, pleuritic pain, palpitations, hemoptysis, nausea, vomiting, diarrhea, lower extremity edema, and calf pain. In the ED: Vital signs on arrival include a temperature of 99?, blood pressure 160/52, pulse 81, respiratory 20, SpO2 82% on room air. Labs were significant for WBC count of 14.5, sodium 135, potassium 3.3, lactic acid 1.7, CRP 15.1. She tested negative for influenza, RSV, COVID, and nasal MRSA. Chest CTA was negative for pulmonary embolism. A 4.1 x 2.9 cm mass was seen in the right lower lobe with findings suggestive of pneumonitis, right hilar and mediastinal lymphadenopathy, and emphysematous changes. She received azithromycin, meropenem, and vancomycin for possible postobstructive pneumonia. She is being admitted in this setting for further treatment. 11/14: Visited pt in her room and she was lying resting in bed. Pt wearing 3L O2. Pt reports that she is still SOB but feels 100% better than I did yesterday. Pt reports that she has been told before that she is in need of wearing O2 at home, but has never been instructed on how to get this set up. Pt also states that she has an appt with a concrete analyst in March but that was the first availability to be seen. Pt still in need of lung biopsy today but per rads/CT, since pt is on O2, she cannot get biopsy due to risk of pneumo. Pulm consulted today for guidance. 11/15: Pt lying in bed resting, looking similar to yesterday upon exam. She is now wearing 8L NC due to an increased need of O2 overnight. Pt reports that she is breathing fine and reports being less congested today. Denies CP, SOB, and wheezing. Updated her on the plan to f/u with onc outpt for further management regarding the lung biopsy. Review of Systems Review of Systems: 12 systems were reviewed and are negativ e except for as per HPI. Exam Const: General: comfortable and no acute distress Other: Thin, chronically ill-appearing female sitting up in bed. HENMT: Face/Nose/Sinus: Normal nares present Other: tacky mucus membranes Eyes: General: appearance normal, both eyes and all related structures Sclera: sclerae normal Neck: Neck: supple and no JVD Carotids: no bruits Resp: Other: Currently on 8 L nasal cannula. Respirations are nonlabored and she is speaking in full sentences. Lung sounds are significantly diminished throughout with scattered rales/coarse LS. No wheezing. Cardio: Rate: regular rate Rhythm: regular rhythm GI: Inspection: non-distended Auscultation: normal bowel sounds Skin: General skin exam: normal color and no rashes or lesions noted Wounds: no wounds Neuro: Speech: normal speech Motor exam (neuro): Normal motor muscle tone present throughout Sensory Exam: normal sensation Extrem: General: normal to inspection, no edema and no pedal edema Psych: Mental Status: mental status grossly normal Affect: normal affect Objective Data Vital Signs Vital Signs: Vital Signs - 24 hr 11/14/24 12:42 11/14/24 12:46 11/14/24 13:35 Temperature Pulse Rate 80 112 H Respiratory Rate 28 H Blood Pressure 178/57 H Pulse Oximetry 77 L Oxygen Delivery Nasal Cannula Oxygen Flow Rate 3 Fraction of Inspired Oxygen 32 11/14/24 13:40 11/14/24 13:41 11/14/24 13:44 Temperature Pulse Rate 84 92 Respiratory Rate 20 24 H Blood Pressure Pulse Oximetry 90 77 L Oxygen Delivery Nasal Cannula Nasal Cannula Oxygen Flow Rate 5 5 Fraction of Inspired Oxygen 32 11/14/24 13:48 11/14/24 13:59 11/14/24 20:30 Temperature 97.8 F Pulse Rate 91 72 Respiratory Rate 20 18 Blood Pressure 171/59 H Pulse Oximetry 92 95 Oxygen Delivery Nasal Cannula Oxygen Flow Rate 3 Fraction of Inspired Oxygen 11/14/24 20:30 11/14/24 20:33 11/14/24 20:45 Temperature Pulse Rate 66 87 66 Respiratory Rate 20 Blood Pressure Pulse Oximetry 92 Oxygen Delivery Nasal Cannula Oxygen Flow Rate 5 Fraction of Inspired Oxygen 11/14/24 21:07 11/14/24 21:10 11/15/24 02:12 Temperature 97.6 F Pulse Rate 60 69 83 Respiratory Rate 16 20 24 H Blood Pressure 157/51 H Pulse Oximetry 95 Oxygen Delivery Oxygen Flow Rate Fraction of Inspired Oxygen 11/15/24 02:38 11/15/24 02:53 11/15/24 06:00 Temperature 98.0 F Pulse Rate 75 87 101 H Respiratory Rate 24 H 18 Blood Pressure 155/83 H Pulse Oximetry 91 90 Oxygen Delivery High Flow Nasal Cannula Oxygen Flow Rate 8 Fraction of Inspired Oxygen 11/15/24 08:08 11/15/24 08:08 11/15/24 08:27 Temperature Pulse Rate 77 79 Respiratory Rate 20 20 Blood Pressure Pulse Oximetry 96 Oxygen Delivery High Flow Nasal Cannula Oxygen Flow Rate 8 Fraction of Inspired Oxygen 11/15/24 08:53 11/15/24 08:55 Temperature Pulse Rate 79 Respiratory Rate Blood Pressure 172/70 H Pulse Oximetry 92 Oxygen Delivery Oxygen Flow Rate Fraction of Inspired Oxygen Intake/Output Intake/Output: Intake & Output 11/12/24 11/13/24 11/14/24 11/15/24 23:59 23:59 23:59 23:59 Intake Total 100 1390 120 Output Total 700 200 Balance 100 690 -80 Meds/Results Medications: Active Medications Generic Name Dose Route Start Last Admin Trade Name Freq PRN Reason Stop Dose Admin Acetaminophen 650 mg 11/13/24 22:45 Acetaminophen 325 Mg Tablet PO Q6H PRN Mild Pain (1-3) or Fever Acetylcysteine 200 mg 11/14/24 20:00 11/15/24 08:06 Acetylcysteine 20% Inhal Soln 800 Mg/4 Ml Vial INHALATION 200 mg Q6HRT LUCY Administration Albuterol/Ipratropium 3 ml 11/14/24 08:00 11/15/24 08:06 Ipratropium 0.5 Mg/Albuterol Sulfate 2.5 Mg Ampul.Neb 3 Ml INHALATION 3 ml Q6HRT LUCY Administration Atorvastatin Calcium 40 mg 11/14/24 09:00 11/15/24 08:53 Atorvastatin 40 Mg Tablet PO 40 mg DAILY LUCY Administration Budesonide 0.5 mg 11/14/24 20:00 11/15/24 08:06 Budesonide Respule Neb 0.5 Mg/2 Ml Amp INHALATION 0.5 mg Q12HRT LUCY Administration Carvedilol 6.25 mg 11/14/24 09:00 11/15/24 08:53 Carvedilol 6.25 Mg Tablet PO 6.25 mg Q12HR LUCY Administration Desmopressin Acetate 0.2 mg 11/14/24 21:00 11/14/24 20:32 Desmopressin Acetate 0.1 Mg Tablet PO 0.2 mg HS LUCY Administration Doxycycline Hyclate 100 mg 11/14/24 09:00 11/15/24 08:53 Doxycycline Hyclate 100 Mg Tablet PO 100 mg Q12HR LUCY Administration Escitalopram Oxalate 10 mg 11/14/24 21:00 11/14/24 20:32 Escitalopram Oxalate 10 Mg Tablet PO 10 mg HS LUYC Administration Furosemide 20 mg 11/14/24 09:00 11/15/24 08:53 Furosemide 20 Mg Tablet PO 20 mg QAM LUCY Administration Guaifenesin 1,200 mg 11/14/24 09:00 11/15/24 08:53 Guaifenesin 12 Hr 600 Mg Tabcr PO 1,200 mg Q12HR LUCY Administration Cefepime HCl 2 gm in 50 mls @ 100 mls/hr 11/14/24 03:00 11/15/24 02:25 Maxipime 2 Gm/Ns 50 Ml IVPB 100 mls/hr Q12H LUCY Administration Metronidazole 500 mg in 100 mls @ 100 mls/hr 11/14/24 04:00 11/15/24 03:29 Flagyl 500 Mg/Iso Soln 100 Ml IVPB 100 mls/hr Q8H LUCY Administration Lisinopril 40 mg 11/14/24 09:00 11/15/24 08:52 Lisinopril 20 Mg Tablet PO 40 mg QAM LUCY Administration Melatonin 5 mg 11/14/24 21:00 11/14/24 20:35 Melatonin 5 Mg Tablet PO 5 mg QHS LUCY Administration Perflutren Lipid Microsphere 0 ml 11/14/24 14:27 Perflutren Lipid Microspheres 1.5 Ml Vial Diluted To 10 Ml Total Volume IV PUSH 11/17/24 14:27 ONCE PRN adequate visualization Protocol Radiology Results: ITS Impressions Chest X-Ray 11/13/24 18:58 IMPRESSION: Prominent right hilum is noted. Further evaluation to exclude underlying mass is advised. Fibrotic/emphysematous changes of the lungs with possible superimposed pneumonitis on the right side. Chest CTA 11/13/24 21:07 IMPRESSION: 1. No pulmonary embolism. 2. Mass measuring 4.1 x 2.9 cm in the right lower lobe. Further evaluation advised. Smaller nodule is seen adjacent to this mass in the right lower lobe area. 3. interstitial and alveolar opacification in the right middle , lower and upper lobes and left lower lobe suggestive of pneumonitis. 4. Extensive emphysematous changes seen bilaterally. 5. Right hilar and mediastinal lymphadenopathy. 6. The proximal abdominal aorta measures 3 cm. Labs Labs: Laboratory Results - last 24 hr 11/15/24 05:38 WBC 18.2 H RBC 3.90 L Hgb 11.9 L Hct 38.3 MCV 98.2 MCH 30.5 MCHC 31.1 L RDW 15.2 H Plt Count 213 MPV 8.9 Immature Gran % (Auto) 0.8 H Neut % (Auto) 83.4 H Lymph % (Auto) 7.4 L [place] % (Auto) 8.2 Eos % (Auto) 0.1 Baso % (Auto) 0.1 L Lymph # (Auto) 1.35 [place] # (Auto) 1.5 H Eos # (Auto) 0.0 Baso # (Auto) 0.0 Abs Immat Gran (auto) 0.14 H Absolute Neuts (auto) 15.2 H Absolute Nucleated RBC 0.000 Nucleated RBC % 0.0 Sodium 138 Potassium 3.9 Chloride 109 H Carbon Dioxide 23 Anion Gap 6 BUN 11 Creatinine 0.72 Estim Creat Clear Calc 53 Estimated GFR > 60 Glucose 90 Calcium 7.7 L Total Bilirubin 0.5 AST 29 ALT 16 Alkaline Phosphatase 97 C-Reactive Protein 4.9 H Total Protein 6.0 L Albumin 3.0 L Procalcitonin 0.1 Quality VTE Prophylaxis VTE prophylaxis: mechanical ordered
--- NOTE | 2024-11-15 14:27 | ECHO_ITS ---
Patient Info Name: Dawn Bocanegra Age: 73 years : 1950 Gender: Female Ht: 65 in Wt: 125 lbs BSA: 1.61 m2 HR: 75 bpm BP: 157 / 51 mmHg Technical Quality: Good Exam Date: 11/15/2024 7:19 AM Patient Status: I Admit Date: 11/13/2024 Exam Type: CA echo doppler color flow Complete two-dimensional, color flow and Doppler transthoracic echocardiogram is performed. Staff Referring Physician: Jacqui Shen [facility] Automatic Pinsetter Adjuster: Melinda Sam Attending Provider: Lucia Howard Summary 1. Complete two-dimensional, color flow and Doppler transthoracic echocardiogram is performed. 2. Left ventricular chamber dimension is normal. 3. Left ventricular systolic function is normal, estimated at 60-65. 4. There is mild concentric increased left ventricular wall thickness. 5. The left ventricular diastolic function is grade I diastolic dysfunction. 6. E/e' 9 is minimally elevated. 7. Left atrial chamber dimension is moderately enlarged. 8. There is mild aortic valve sclerosis. 9. The mitral valve has a mildly calcified annulus. 10. There is trace mitral valve regurgitation. Left Ventricle E/e' 9 is minimally elevated. Left ventricular chamber dimension is normal. Left ventricular systolic function is normal, estimated at 60-65. There is mild concentric increased left ventricular wall thickness. The left ventricular diastolic function is grade I diastolic dysfunction. Right Ventricle Right ventricular chamber dimension is normal. Right ventricular systolic function is normal. Left Atria Left atrial chamber dimension is moderately enlarged. Right Atria Right atrial chamber dimension is normal. Aortic Valve The aortic valve is trileaflet. There is mild aortic valve sclerosis. There is no aortic valve stenosis. There is no aortic valve regurgitation. Pulmonic Valve There is no pulmonic regurgitation. Mitral Valve The mitral valve has a mildly calcified annulus. There is mild mitral valve stenosis. There is trace mitral valve regurgitation. Tricuspid Valve There is trace tricuspid valve regurgitation. RVSP is not calculated due to an inadequate TR jet. Pericardium/Pleural There is no pericardial effusion. Inferior Vena Cava Normal inferior vena cava with >50% collapse upon inspiration consistent with normal right atrial pressure, 5 mmHg. Aorta The aortic root size at the sinus of Valsalva is normal. Left Ventricular Outflow Tract Name Value Normal LVOT 2D LVOT Diameter 1.8 cm LVOT Doppler LVOT Peak Velocity 101 cm/s LVOT Peak Gradient 4 mmHg LVOT Mean Gradient 2 mmHg LVOT VTI 28 cm LVOT VTI/AV VTI Ratio 0.9 LVOT Stroke Volume 72 ml LVOT CO 5.3 l/min LVOT CI 3.3 l/min/m2 Pulmonic Valve Name Value Normal RVOT Doppler RVOT Peak Velocity 74 cm/s RVOT Peak Gradient 2 mmHg PV Doppler PV Peak Velocity 100 cm/s PV Peak Gradient 4 mmHg Mitral Valve Name Value Normal MV Diastolic Function MV E Peak Velocity 76 cm/s MV A Peak Velocity 123 cm/s MV E/A 0.6 MV Decel Time (PW) 315 ms MV Annular TDI MV E/e' (Septal) 12.8 MV E/e' (Lateral) 8.1 MV E/e' (Average) 10.5 Tricuspid Valve Name Value Normal Estimated PAP/RSVP RA Pressure 5 mmHg <=5 Aortic Valve Name Value Normal AV Doppler AV Peak Velocity 153 cm/s AV Peak Gradient 9 mmHg AV Mean Gradient 5 mmHg AV VTI 30 cm AV Area (Cont Eq VTI) 2.4 cm2 >=3.0 AV Area (Cont Eq Pete) 1.7 cm2 AV DI (Pete) 0.66 AV Regurgitation 2D LVOT Area 2.5 cm2 Ventricles Name Value Normal LV Dimensions 2D/MM IVS Diastolic Thickness (2D) 1.3 cm 0.6-1.0 LVID Diastole (2D) 3.5 cm 3.8-5.2 LVIW Diastolic Thickness (2D) 0.8 cm 0.6-0.9 LVID Systole (2D) 2.6 cm 2.2-3.5 LVOT Diameter 1.8 cm LV Mass (2D Cubed) 118.99 g 67.00-162.00 LV Mass Index (2D Cubed) 74 g/m2 43-95 Relative Wall Thickness (2D) 0.48 <=0.42 LV Fractional Shortening/Ejection Fraction 2D/MM LV Fractional Shortening (2D) 27 % 27-45 LV EF (2D Teichholz) 53 % LV Diastolic Volume (4C MOD) 72 ml LV EF (4C MOD) 55 % LV Diastolic Volume (2C MOD) 63 ml LV EF (2C MOD) 69 % LV Diastolic Volume (BP MOD) 70 ml 46-106 LV Diastolic Volume Index (BP MOD) 43 ml/m2 29-61 LV Systolic Volume (BP MOD) 28 ml 14-42 LV Systolic Volume Index (BP MOD) 18 ml/m2 8-24 LV EF (BP MOD) 59 % 54-74 LV Diastolic Length (4C) 7.7 cm LV Systolic Length (4C) 7.0 cm LV Stroke Volume (4C MOD) 40 ml Atria Name Value Normal LA Dimensions LA Volume (4C A-L) 51 ml LA Volume (BP A-L) 49 ml RA Dimensions RA Systolic Major Tofte Length (4C) 4.7 cm 2.2-2.8 RA Area (4C) 14.1 cm2 <=18.0 Report Signatures
[2024-11-15] MEDS: hydrALAZINE HCL 20 MG/ML VIAL 10 MG IV PUSH (20:27)
[2024-11-15] MEDS: DESMOPRESSIN ACETATE 0.1 MG TABLET 0.2 MG PO (20:28)
[2024-11-15] MEDS: carvediloL 12.5 MG TABLET PO (20:28)
[2024-11-15] MEDS: ESCITALOPRAM OXALATE 10 MG TABLET PO (20:28)
[2024-11-15] MEDS: MELATONIN 5 MG TABLET PO (20:28)
[2024-11-15] MEDS: ACETAMINOPHEN 325 MG TABLET 650 MG PO (20:33)
[2024-11-15 22:21] LABS: Vancomycin Trough < 5.0 ug/mL (10.0-20.0)
[2024-11-15] MEDS: LORazepam (*CRX) 0.5 MG TABLET PO (23:02)
[2024-11-16] VITALS (17 sets, daily range): BP systolic 159–189; BP diastolic 48–69; PULSE 71–86; RESP 16–24; TEMP 36.6–36.7; O2SAT 88–97
[2024-11-16] MEDS: IPRATROPIUM 0.5 MG/ALBUTEROL SULFATE 2.5 MG AMPUL.NEB 3 ML INHALATION ×4 (01:41→20:26)
[2024-11-16] MEDS: ACETYLCYSTEINE 20% INHAL SOLN 800 MG/4 ML VIAL 200 MG INHALATION ×4 (01:41→20:26)
[2024-11-16] MEDS: metroNIDAZOLE 500 MG/ISO 100ML 500 MG/100 ML BAG 100 MG IVPB ×3 (02:57→20:29)
[2024-11-16] MEDS: CEFEPIME 2 GM/NS 50 ML 2 GM/50 ML BAG IVPB ×2 (02:57→14:03)
[2024-11-16 05:36] LABS: Alanine Aminotransferase 14 U/L (6-35); Albumin Level 2.8 g/dL (3.5-5.1); Alkaline Phosphatase 88 U/L (38-126); Anion Gap 7 mmol/L (4-12); Aspartate Amino Transferase 29 U/L (14-36); Bilirubin,Total 0.6 mg/dL (0.2-1.3); Blood Urea Nitrogen 13 mg/dL (7-17); Calcium 7.4 mg/dL (8.4-10.2); Carbon Dioxide 20 mmol/L (22-30); Chloride 109 mmol/L (98-107); Estimated CRCL calculation 57 ml/min; Estimated Glomerular Filt Rate > 60; Glucose 79 mg/dL (65-110); Potassium 3.7 mmol/L (3.4-5.0); Sodium 136 mmol/L (137-145); Total Protein 5.7 g/dL (6.3-8.2)
[2024-11-16 07:19] LABS: Alpha-1-Antitrypsin, QN. 187 mg/dL (83-199)
--- NOTE | 2024-11-16 08:10 | PM.IMPN ---
Progress Note: A&P Assessment and Plan (1) Acute respiratory failure with hypoxia: Code(s): J96.01 - Acute respiratory failure with hypoxia Status: Acute Assessment and Plan: Pt presented to the ED for evaluation of increased SOB, cough, increased sputum, and chills that has worsened over the last several days. -Chest CT shows an increase in a right lower lobe mass concerning for malignant as well as findings of pneumonia. -->She received azithromycin, meropenem, and vancomycin in the ED. -->Her antibiotics will be changed to cefepime (patient reports anaphylaxis to penicillin in the ; cefepime has a different structure and is considered safe to prescribed), doxycycline, metronidazole, and vancomycin to cover possible postobstructive pneumonia. -Continue scheduled bronchodilators. -Andrest Mucinex ordered to help mobilize secretions. -->Sputum culture pending, container at bedside and reminded her about the need for it. -She is currently on 3 L and admits that she was told a couple of months ago that she needs oxygen at home however she called the company and had them remove attending from her home as she did not know how to use it. She will need a home oxygen evaluation prior to discharge. 11/14: Pt still c/o of SOB but reports that she feels 100% than yesterday but I would feel better if I didn't have all this sputum. -Plan to continue with above plan as well as serial AM labs and O2 assessment -Pending PULM consult, see below. 11/15: Bump in WBC over night, will continue to monitor, re-imaging may be needed if continues to climb. Continue IV abx and breathing tx. CRP continues to be elevated but is down trending. Per nursing, pt went up to 8L of O2 overnight due to increased need and has been on since. Asked nursing to trial titrate down to baseline 3L NC to see how she does. Per PULM yesterday, pt desatted while he was in room due to mucus plug, may be related again last night? Pt appears to be less congested today. 11/16: WBC starting to down trend once again, will continue to monitor daily labs. Continue IV abx and breathing tx. Per chart, pt needed an increase of O2 overnight (was placed on 9L NC) and the provider overnight ordered an acute CXR which looks similar to prior. Pt reports that she had an anxiety attack last night, this may be why this increase in O2 need occurred. Pt titrated back down to 3L NC by me today at the bedside and she maintained an O2 of 92%; O2 goal of 90-94%. No wheezing still upon my exam today, but lungs are still sounding very coarse throughout. (2) Postobstructive pneumonia: Code(s): J18.9 - Pneumonia, unspecified organism Status: Acute Assessment and Plan: See above. (3) Right lower lobe lung mass: Code(s): R91.8 - Other nonspecific abnormal finding of lung field Status: Acute Assessment and Plan: Chest CTs performed in June and more recently October 2024 show a continued increase in the RLL nodule concerning for malignancy. She was scheduled for a CT-guided biopsy yesterday however she was hypoxic on arrival and the biopsy was canceled. She was then sent to the emergency department with plans for admission however she left against medical advice. -Continue to hold clopidogrel and she will be NPO after midnight for possible CT-guided lung biopsy tomorrow depending on the radiologist schedule. 11/14: -CT biopsy of lung ordered for today but per CT, unable to do if pt is actively using O2. Per nursing, pt does not use O2 at home, but, per hospitalist note, pt was told a couple of months ago that she needs O2 at home however she called the company and had them remove O2 from her home as she did not know how to use it. She will need a home oxygen evaluation prior to discharge. -->Upon interview today, pt states that she was not given any direction on how to work home O2, that is why she has not been using it -->Encouraged nursing to try to downtrend pt O2 while inpt to obtain biopsy. -->Pending PULM consult and appreciate their recommendations for lung mass work-up Pulm, Dr. Bañuelos, saw pt and updated me on plan, please see his thorough note. -Per pt report she is still smoking 2 ppd, 118 year hx. Pt recently went to PCP office for a cough and congestion on 11/05 and at that time her O2 sat was charted as 75%, pt was given Zpak and steroids and their of those tx worked. Also reporting home sats of 81-91% per pulse ox. Pt was given O2 delivered to her home in June 2024 and set all of the O2 back. -Goals of O2 90-94% -Plan to D/C vanc due to MRSA swab being negative, add echo, add on CPR and procal for AM labs, and add Mucomyst 200mg Q6 to help with sputum, and a resp pathogen panel. -Plan to continue with no systemic steroids, recs for adding Solumedrol 40mg Q6 x1 day and change to prednisone for the remaining x4 days if develops wheezing. -Pt will require higher level of care for biopsy due to O2 use, but declines going to [facility]. -I updated Dr. Palomo (pts onc) about her not being able to get the biopsy performed on 11/12 and the need for higher level of care for this but refusing transfer to [facility]. He recs f/u in his office to plan further intervention / treatment. -->Has been treated by Dr. Palomo in the past with radiation and the last biopsy that was attempted was in 2022 and it came back inconclusive Will continue to treat PNA and COPD exac with cefe, Doxy, and Flagyl for gram neg and abnormal PNA coverage. Pending ECHO, AM labs, VS, and breathing status. 11/15: Reiterated plan for onc f/u outpt to pt today, told her that I spoke to Dr. Palomo and this was his recommendation for further management. Pt agreeable with the plan. ECHO resulted unremarkable today. (4) Chronic obstructive pulmonary disease: Code(s): J44.9 - Chronic obstructive pulmonary disease, unspecified Status: Acute Assessment and Plan: Continue home meds, abx for PNA ordered (5) Hypertension: Code(s): I10 - Essential (primary) hypertension Status: Acute Assessment and Plan: Blood pressures have been running high and will be monitored closely for possible adjustments in medication depending on how she trends. -Her home medications have been reviewed and resumed as appropriate. 11/15: Pt BPs still running high, systolic 150/170. Increased home Coreg from 6.25mg BID to 12.5mg BID. Also ordered hyral PRN. 11/16: HTN baseline and a bit higher overnight, pt reports having a panic attack. Pt to receive second dose of increased coreg of 12.5 BID this AM, will continue to monitor. x1 dose of hydral was used last night. Plan Continue to monitor pt and SOB assessment and lung sounds. Continue to trend labs, need for O2/assessment, pending sputum culture, and resp pathogen results. 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 Chest CTs done in June and more recently last month show a continued increase in the right lower lobe nodule concerning for malignancy. She was scheduled for a CT-guided biopsy yesterday however she was hypoxic on arrival and the biopsy was canceled. She was then sent to the emergency department with plans for admission however she left against medical advice. Since that time she has been feeling worse and endorses chills, an increase in sputum production, and shortness of breath. She denies documented fever, sore throat, chest pain, pleuritic pain, palpitations, hemoptysis, nausea, vomiting, diarrhea, lower extremity edema, and calf pain. In the ED: Vital signs on arrival include a temperature of 99?, blood pressure 160/52, pulse 81, respiratory 20, SpO2 82% on room air. Labs were significant for WBC count of 14.5, sodium 135, potassium 3.3, lactic acid 1.7, CRP 15.1. She tested negative for influenza, RSV, COVID, and nasal MRSA. Chest CTA was negative for pulmonary embolism. A 4.1 x 2.9 cm mass was seen in the right lower lobe with findings suggestive of pneumonitis, right hilar and mediastinal lymphadenopathy, and emphysematous changes. She received azithromycin, meropenem, and vancomycin for possible postobstructive pneumonia. She is being admitted in this setting for further treatment. 11/14: Visited pt in her room and she was lying resting in bed. Pt wearing 3L O2. Pt reports that she is still SOB but feels 100% better than I did yesterday. Pt reports that she has been told before that she is in need of wearing O2 at home, but has never been instructed on how to get this set up. Pt also states that she has an appt with a inspector [employer] in March but that was the first availability to be seen. Pt still in need of lung biopsy today but per rads/CT, since pt is on O2, she cannot get biopsy due to risk of pneumo. Pulm consulted today for guidance. 11/15: Pt lying in bed resting, looking similar to yesterday upon exam. She is now wearing 8L NC due to an increased need of O2 overnight. Pt reports that she is breathing fine and reports being less congested today. Denies CP, SOB, and wheezing. Updated her on the plan to f/u with onc outpt for further management regarding the lung biopsy. 11/16: Pt resting in bed, states that she is sleepy today due to an eventful night, she states that she had an anxiety attack (this could explain her increased O2 need and HTN overnight). Pt was also placed on 9L NC overnight, titrated her back down to 3L NC today while at bedside, pt satting 92% with a great pleth. Pt also appears to be a mouth breather when sleeping as I witnessed. Pt requesting a nicotine patch today, she usually smokes 2 PPD. Review of Systems Review of Systems: 12 systems were reviewed and are negative except for as per HPI. Exam Const: General: comfortable and no acute distress Other: Thin, chronically ill-appearing female lying in bed. HENMT: Face/Nose/Sinus: Normal nares present Other: tacky mucus membranes Eyes: General: appearance normal, both eyes and all related structures Sclera: sclerae normal Neck: Neck: supple and no JVD Carotids: no bruits Resp: Other: Currently on 3 L nasal cannula. Respirations are nonlabored and she is speaking in full sentences. Lung sounds are significantly diminished throughout with scattered rales/coarse LS. No wheezing. Cardio: Rate: regular rate Rhythm: regular rhythm GI: Inspection: non-distended Auscultation: normal bowel sounds Skin: General skin exam: normal color and no rashes or lesions noted Wounds: no wounds Neuro: Speech: normal speech Motor exam (neuro): Normal motor muscle tone present throughout Sensory Exam: normal sensation Extrem: General: normal to inspection, no edema and no pedal edema Psych: Mental Status: mental status grossly normal Affect: normal affect Objective Data Vital Signs Vital Signs: Vital Signs - 24 hr 11/15/24 08:27 11/15/24 08:53 11/15/24 08:55 Temperature Pulse Rate 79 79 Respiratory Rate 20 Blood Pressure 172/70 H Pulse Oximetry 92 Oxygen Delivery Oxygen Flow Rate 11/15/24 13:19 11/15/24 13:51 11/15/24 19:44 Temperature 97.1 F L 97.5 F L Pulse Rate 81 66 81 Respiratory Rate 20 18 20 Blood Pressure 174/95 H 200/80 H Pulse Oximetry 96 100 Oxygen Delivery Oxygen Flow Rate 11/15/24 20:00 11/15/24 20:09 11/15/24 20:15 Temperature Pulse Rate 74 Respiratory Rate 20 Blood Pressure Pulse Oximetry 90 95 Oxygen Delivery High Flow Nasal Cannula High Flow Nasal Cannula Oxygen Flow Rate 9 7 11/15/24 20:25 11/15/24 21:00 11/16/24 01:43 Temperature Pulse Rate 88 75 Respiratory Rate 20 20 Blood Pressure Pulse Oximetry 91 Oxygen Delivery High Flow Nasal Cannula Oxygen Flow Rate 9 11/16/24 01:49 11/16/24 05:02 Temperature 98.1 F Pulse Rate 76 83 Respiratory Rate 20 16 Blood Pressure 159/48 H Pulse Oximetry 97 Oxygen Delivery Oxygen Flow Rate Intake/Output Intake/Output: Intake & Output 11/13/24 11/14/24 11/15/24 11/16/24 23:59 23:59 23:59 23:59 Intake Total 100 1390 640 150 Output Total 700 700 200 Balance 100 690 -60 -50 Meds/Results Medications: Active Medications Generic Name Dose Route Start Last Admin Trade Name Freq PRN Reason Stop Dose Admin Acetaminophen 650 mg 11/13/24 22:45 11/15/24 20:33 Acetaminophen 325 Mg Tablet PO 650 mg Q6H PRN Administration Mild Pain (1-3) or Fever Acetylcysteine 200 mg 11/14/24 20:00 11/16/24 01:41 Acetylcysteine 20% Inhal Soln 800 Mg/4 Ml Vial INHALATION 200 mg Q6HRT LUCY Administration Albuterol/Ipratropium 3 ml 11/14/24 08:00 11/16/24 01:41 Ipratropium 0.5 Mg/Albuterol Sulfate 2.5 Mg Ampul.Neb 3 Ml INHALATION 3 ml Q6HRT LUCY Administration Atorvastatin Calcium 40 mg 11/14/24 09:00 11/15/24 08:53 Atorvastatin 40 Mg Tablet PO 40 mg DAILY LUCY Administration Budesonide 0.5 mg 11/14/24 20:00 11/15/24 20:08 Budesonide Respule Neb 0.5 Mg/2 Ml Amp INHALATION 0.5 mg Q12HRT LUCY Administration Carvedilol 12.5 mg 11/15/24 21:00 11/15/24 20:28 Carvedilol 12.5 Mg Tablet PO 12.5 mg Q12HR LUCY Administration Desmopressin Acetate 0.2 mg 11/14/24 21:00 11/15/24 20:28 Desmopressin Acetate 0.1 Mg Tablet PO 0.2 mg HS LUCY Administration Doxycycline Hyclate 100 mg 11/14/24 09:00 11/15/24 20:28 Doxycycline Hyclate 100 Mg Tablet PO 100 mg Q12HR LUCY Administration Escitalopram Oxalate 10 mg 11/14/24 21:00 11/15/24 20:28 Escitalopram Oxalate 10 Mg Tablet PO 10 mg HS LUCY Administration Furosemide 20 mg 11/14/24 09:00 11/15/24 08:53 Furosemide 20 Mg Tablet PO 20 mg QAM LUCY Administration Guaifenesin 1,200 mg 11/14/24 09:00 11/15/24 20:28 Guaifenesin 12 Hr 600 Mg Tabcr PO 1,200 mg Q12HR LUCY Administration Hydralazine HCl 10 mg 11/15/24 14:58 11/15/24 20:27 Hydralazine Hcl 20 Mg/Ml Vial IV PUSH 10 mg Q8H PRN Administration Hypertension systolic >180 Cefepime HCl 2 gm in 50 mls @ 100 mls/hr 11/14/24 03:00 11/16/24 02:57 Maxipime 2 Gm/Ns 50 Ml IVPB 100 mls/hr Q12H LUCY Administration Metronidazole 500 mg in 100 mls @ 100 mls/hr 11/14/24 04:00 11/16/24 02:57 Flagyl 500 Mg/Iso Soln 100 Ml IVPB 100 mls/hr Q8H LUCY Administration Lisinopril 40 mg 11/14/24 09:00 11/15/24 08:52 Lisinopril 20 Mg Tablet PO 40 mg QAM LUCY Administration Melatonin 5 mg 11/14/24 21:00 11/15/24 20:28 Melatonin 5 Mg Tablet PO 5 mg QHS LUCY Administration Perflutren Lipid Microsphere 0 ml 11/14/24 14:27 Perflutren Lipid Microspheres 1.5 Ml Vial Diluted To 10 Ml Total Volume IV PUSH 11/17/24 14:27 ONCE PRN adequate visualization Protocol Radiology Results: ITS Impressions Chest CTA 11/13/24 21:07 IMPRESSION: 1. No pulmonary embolism. 2. Mass measuring 4.1 x 2.9 cm in the right lower lobe. Further evaluation advised. Smaller nodule is seen adjacent to this mass in the right lower lobe area. 3. interstitial and alveolar opacification in the right middle , lower and upper lobes and left lower lobe suggestive of pneumonitis. 4. Extensive emphysematous changes seen bilaterally. 5. Right hilar and mediastinal lymphadenopathy. 6. The proximal abdominal aorta measures 3 cm. Chest X-Ray 11/15/24 21:22 IMPRESSION: Severe panlobular emphysematous disease without focal infiltrate or effusion. Redemonstration of a right lower lobe asymmetry by secondary signs on frontal view. Labs Labs: Laboratory Results - last 24 hr 11/15/24 11/15/24 11/16/24 05:38 21:50 05:09 Sodium 136 L Potassium 3.7 Chloride 109 H Carbon Dioxide 20 L Anion Gap 7 BUN 13 Creatinine 0.64 L Estim Creat Clear Calc 57 Estimated GFR > 60 Glucose 79 Calcium 7.4 L Total Bilirubin 0.6 AST 29 ALT 14 Alkaline Phosphatase 88 Total Protein 5.7 L Albumin 2.8 L [id number] 187 Vancomycin Trough < 5.0 L Quality VTE Prophylaxis VTE prophylaxis: mechanical ordered
[2024-11-16] MEDS: ATORVASTATIN 40 MG TABLET PO (08:23)
[2024-11-16] MEDS: lisinopriL 20 MG TABLET 40 MG PO (08:23)
[2024-11-16] MEDS: DOXYCYCLINE HYCLATE 100 MG TABLET PO ×2 (08:23→20:30)
[2024-11-16] MEDS: FUROSEMIDE 20 MG TABLET PO (08:23)
[2024-11-16] MEDS: carvediloL 12.5 MG TABLET PO ×2 (08:23→20:29)
[2024-11-16] MEDS: guaiFENesin 12 HR 600 MG TABCR 1200 MG PO ×2 (08:24→20:30)
[2024-11-16 08:25] LABS: Hematocrit 38.1 % (37.0-47.0); Hemoglobin 11.9 g/dL (12.0-15.0); Mean Corpuscular HGB Conc 31.2 g/dl (32-36); Mean Corpuscular Hemoglobin 30.4 pg (26-34); Mean Corpuscular Volume 97.4 fl (80-100); Mean Platelet Volume 9.5 fl (7.4-10.4); Platelet Count Result 201 k/mm3 (150-375); Red Blood Count 3.91 M/mm3 (4.2-5.4); Red Cell Distribution Width 15.4 % (11.5-14.5); White Blood Count 12.9 K/mm3 (4.5-10.0)
[2024-11-16] MEDS: BUDESONIDE RESPULE NEB 0.5 MG/2 ML AMP INHALATION ×2 (09:28→20:25)
[2024-11-16] MEDS: DESMOPRESSIN ACETATE 0.1 MG TABLET 0.2 MG PO (20:29)
[2024-11-16] MEDS: ESCITALOPRAM OXALATE 10 MG TABLET PO (20:30)
[2024-11-16] MEDS: MELATONIN 5 MG TABLET PO (20:31)
[2024-11-17] VITALS (13 sets, daily range): BP systolic 144–178; BP diastolic 50–60; PULSE 72–87; RESP 18–24; TEMP 36.4–36.5; O2SAT 89–93
[2024-11-17] MEDS: ACETYLCYSTEINE 20% INHAL SOLN 800 MG/4 ML VIAL 200 MG INHALATION ×4 (01:45→20:28)
[2024-11-17] MEDS: IPRATROPIUM 0.5 MG/ALBUTEROL SULFATE 2.5 MG AMPUL.NEB 3 ML INHALATION ×4 (01:45→20:27)
[2024-11-17] MEDS: CEFEPIME 2 GM/NS 50 ML 2 GM/50 ML BAG IVPB ×2 (02:56→14:10)
[2024-11-17] MEDS: metroNIDAZOLE 500 MG/ISO 100ML 500 MG/100 ML BAG 100 MG IVPB ×3 (03:25→21:11)
[2024-11-17 05:02] LABS: Hematocrit 38.3 % (37.0-47.0); Hemoglobin 11.6 g/dL (12.0-15.0); Mean Corpuscular HGB Conc 30.3 g/dl (32-36); Mean Corpuscular Hemoglobin 29.7 pg (26-34); Mean Corpuscular Volume 98.2 fl (80-100); Mean Platelet Volume 9.4 fl (7.4-10.4); Platelet Count Result 192 k/mm3 (150-375); Red Cell Distribution Width 15.5 % (11.5-14.5); White Blood Count 13.3 K/mm3 (4.5-10.0)
[2024-11-17 05:13] LABS: Alanine Aminotransferase 16 U/L (6-35); Albumin Level 2.7 g/dL (3.5-5.1); Alkaline Phosphatase 88 U/L (38-126); Anion Gap 10 mmol/L (4-12); Aspartate Amino Transferase 34 U/L (14-36); Bilirubin,Total 0.7 mg/dL (0.2-1.3); Blood Urea Nitrogen 17 mg/dL (7-17); Calcium 7.4 mg/dL (8.4-10.2); Carbon Dioxide 14 mmol/L (22-30); Chloride 111 mmol/L (98-107); Estimated CRCL calculation 55 ml/min; Estimated Glomerular Filt Rate > 60; Glucose 79 mg/dL (65-110); Potassium 3.6 mmol/L (3.4-5.0); Sodium 135 mmol/L (137-145); Total Protein 5.7 g/dL (6.3-8.2)
[2024-11-17] MEDS: BUDESONIDE RESPULE NEB 0.5 MG/2 ML AMP INHALATION ×2 (07:24→20:28)
[2024-11-17 07:39] LABS: CRP 7.8 mg/dL (<1.0)
[2024-11-17 07:42] LABS: NT Pro B Type Natriuretic Pept 4050 pg/mL (19.9-100)
[2024-11-17 07:55] LABS: Procalcitonin 0.2 ng/mL
[2024-11-17] MEDS: carvediloL 12.5 MG TABLET PO ×2 (08:31→21:09)
[2024-11-17] MEDS: busPIRone HCL 10 MG TABLET PO ×2 (08:31→21:17)
[2024-11-17] MEDS: DOXYCYCLINE HYCLATE 100 MG TABLET PO ×2 (08:31→21:08)
[2024-11-17] MEDS: guaiFENesin 12 HR 600 MG TABCR 1200 MG PO ×2 (08:32→21:08)
[2024-11-17] MEDS: ATORVASTATIN 40 MG TABLET PO (08:32)
[2024-11-17] MEDS: FUROSEMIDE 20 MG TABLET PO (08:32)
[2024-11-17] MEDS: lisinopriL 20 MG TABLET 40 MG PO (08:32)
--- NOTE | 2024-11-17 08:46 | P.PNIM_ITS ---
Progress Note: A&P Assessment and Plan (1) Acute respiratory failure with hypoxia: Code(s): J96.01 - Acute respiratory failure with hypoxia Status: Acute Assessment and Plan: Pt presented to the ED for evaluation of increased SOB, cough, increased sputum, and chills that has worsened over the last several days. -Chest CT shows an increase in a right lower lobe mass concerning for malignant as well as findings of pneumonia. -->She received azithromycin, meropenem, and vancomycin in the ED. -->Her antibiotics will be changed to cefepime (patient reports anaphylaxis to penicillin in the ; cefepime has a different structure and is considered safe to prescribed), doxycycline, metronidazole, and vancomycin to cover possible postobstructive pneumonia. -Continue scheduled bronchodilators. -Andrest Mucinex ordered to help mobilize secretions. -->Sputum culture pending, container at bedside and reminded her about the need for it. -She is currently on 3 L and admits that she was told a couple of months ago that she needs oxygen at home however she called the company and had them remove attending from her home as she did not know how to use it. She will need a home oxygen evaluation prior to discharge. 11/14: Pt still c/o of SOB but reports that she feels 100% than yesterday but I would feel better if I didn't have all this sputum. -Plan to continue with above plan as well as serial AM labs and O2 assessment -Pending PULM consult, see below. 11/15: Bump in WBC over night, will continue to monitor, re-imaging may be needed if continues to climb. Continue IV abx and breathing tx. CRP continues to be elevated but is down trending. Per nursing, pt went up to 8L of O2 overnight due to increased need and has been on since. Asked nursing to trial titrate down to baseline 3L NC to see how she does. Per PULM yesterday, pt desatted while he was in room due to mucus plug, may be related again last night? Pt appears to be less congested today. 11/16: WBC starting to down trend once again, will continue to monitor daily labs. Continue IV abx and breathing tx. Per chart, pt needed an increase of O2 overnight (was placed on 9L NC) and the provider overnight ordered an acute CXR which looks similar to prior. Pt reports that she had an anxiety attack last night, this may be why this increase in O2 need occurred. Pt titrated back down to 3L NC by me today at the bedside and she maintained an O2 of 92%; O2 goal of 90-94%. No wheezing still upon my exam today, but lungs are still sounding very coarse throughout. 11/17: Pulm rounded again today is going to make a few adjustments: -Chest therapy, Solumedrol 40mg Q6, he will continue to see the pt, please see pulm note. -Pt reports having difficulty keeping up breathing zavala. Her BNP is elevated since admission, will give 40mg IV Lasix today to see if it helps with her breathing. Continue to trend BNP levels (2) Postobstructive pneumonia: Code(s): J18.9 - Pneumonia, unspecified organism Status: Acute Assessment and Plan: See above. (3) Right lower lobe lung mass: Code(s): R91.8 - Other nonspecific abnormal finding of lung field Status: Acute Assessment and Plan: Chest CTs performed in June and more recently October 2024 show a continued increase in the RLL nodule concerning for malignancy. She was scheduled for a CT-guided biopsy yesterday however she was hypoxic on arrival and the biopsy was canceled. She was then sent to the emergency department with plans for admission however she left against medical advice. -Continue to hold clopidogrel and she will be NPO after midnight for possible CT-guided lung biopsy tomorrow depending on the radiologist schedule. 11/14: -CT biopsy of lung ordered for today but per CT, unable to do if pt is actively using O2. Per nursing, pt does not use O2 at home, but, per hospitalist note, pt was told a couple of months ago that she needs O2 at home however she called the company and had them remove O2 from her home as she did not know how to use it. She will need a home oxygen evaluation prior to discharge. -->Upon interview today, pt states that she was not given any direction on how to work home O2, that is why she has not been using it -->Encouraged nursing to try to downtrend pt O2 while inpt to obtain biopsy. -->Pending PULM consult and appreciate their recommendations for lung mass work- up Pulm, Dr. Bañuelos, saw pt and updated me on plan, please see his thorough note. -Per pt report she is still smoking 2 ppd, 118 year hx. Pt recently went to PCP office for a cough and congestion on 11/05 and at that time her O2 sat was charted as 75%, pt was given Zpak and steroids and their of those tx worked. Also reporting home sats of 81-91% per pulse ox. Pt was given O2 delivered to her home in June 2024 and set all of the O2 back. -Goals of O2 90-94% -Plan to D/C vanc due to MRSA swab being negative, add echo, add on CPR and procal for AM labs, and add Mucomyst 200mg Q6 to help with sputum, and a resp p athogen panel. -Plan to continue with no systemic steroids, recs for adding Solumedrol 40mg Q6 x1 day and change to prednisone for the remaining x4 days if develops wheezing. -Pt will require higher level of care for biopsy due to O2 use, but declines going to [facility]. -I updated Dr. Palomo (pts onc) about her not being able to get the biopsy performed on 11/12 and the need for higher level of care for this but refusing transfer to [facility]. He recs f/u in his office to plan further intervention / treatment. -->Has been treated by Dr. Palomo in the past with radiation and the last biopsy that was attempted was in 2022 and it came back inconclusive Will continue to treat PNA and COPD exac with cefe, Doxy, and Flagyl for gram neg and abnormal PNA coverage. Pending ECHO, AM labs, VS, and breathing status. 11/15: Reiterated plan for onc f/u outpt to pt today, told her that I spoke to Dr. Paloom and this was his recommendation for further management. Pt agreeable with the plan. ECHO resulted unremarkable today. 11/17: Reiterated plan for onc f/u outpt to pt today, told her that I spoke to Dr. Palomo and this was his recommendation for further management. Pt agreeable with the plan. (4) Chronic obstructive pulmonary disease: Code(s): J44.9 - Chronic obstructive pulmonary disease, unspecified Status: Acute Assessment and Plan: Continue home meds, abx for PNA ordered (5) Hypertension: Code(s): I10 - Essential (primary) hypertension Status: Acute Assessment and Plan: Blood pressures have been running high and will be monitored closely for possible adjustments in medication depending on how she trends. -Her home medications have been reviewed and resumed as appropriate. 11/15: Pt BPs still running high, systolic 150/170. Increased home Coreg from 6.25mg BID to 12.5mg BID. Also ordered hyral PRN. 11/16: HTN baseline and a bit higher overnight, pt reports having a panic attack. Pt to receive second dose of increased coreg of 12.5 BID this AM, will continue to monitor. x1 dose of hydral was used last night. 11/17: Pt HTN continue to be moderately elevated, BNP today elevated at to 4050 from 1720 on 11/12, will give a x1 dose of Lasix 40mg today IV to help alleviate sx and BP. Will continue to monitor BNP daily and BP. Kidney labs WDL. Plan Continue to monitor pt and SOB assessment, breathing status, and lung sounds. Continue to trend labs, need for O2/assessment, pending sputum culture, and resp pathogen results. Pulm to follow. 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 Chest CTs done in June and more recently last month show a continued increase in the right lower lobe nodule concerning for malignancy. She was scheduled for a CT-guided biopsy yesterday however she was hypoxic on arrival and the biopsy was canceled. She was then sent to the emergency department with plans for admission however she left against medical advice. Since that time she has been feeling worse and endorses chills, an increase in sputum production, and shortness of breath. She denies documented fever, sore throat, chest pain, pleuritic pain, palpitations, hemoptysis, nausea, vomiting, diarrhea, lower extremity edema, and calf pain. In the ED: Vital signs on arrival include a temperature of 99?, blood pressure 160/52, pulse 81, respiratory 20, SpO2 82% on room air. Labs were significant for WBC count of 14.5, sodium 135, potassium 3.3, lactic acid 1.7, CRP 15.1. She tested negative for influenza, RSV, COVID, and nasal MRSA. Chest CTA was negative for pulmonary embolism. A 4.1 x 2.9 cm mass was seen in the right lower lobe with findings suggestive of pneumonitis, right hilar and mediastinal lymphadenopathy, and emphysematous changes. She received azithromycin, meropenem, and vancomycin for possible postobstructive pneumonia. She is being admitted in this setting for further treatment. 11/14: Visited pt in her room and she was lying resting in bed. Pt wearing 3L O2. Pt reports that she is still SOB but feels 100% better than I did yesterday. Pt reports that she has been told before that she is in need of wearing O2 at home, but has never been instructed on how to get this set up. Pt also states that she has an appt with a architectural sales consultant in March but that was the first availability to be seen. Pt still in need of lung biopsy today but per rads/CT, since pt is on O2, she cannot get biopsy due to risk of pneumo. Pulm consulted today for guidance. 11/15: Pt lying in bed resting, looking similar to yesterday upon exam. She is now wearing 8L NC due to an increased need of O2 overnight. Pt reports that she is breathing fine and reports being less congested today. Denies CP, SOB, and wheezing. Updated her on the plan to f/u with onc outpt for further management regarding the lung biopsy. 11/16: Pt resting in bed, states that she is sleepy today due to an eventful n ight, she states that she had an anxiety attack (this could explain her increased O2 need and HTN overnight). Pt was also placed on 9L NC overnight, titrated her back down to 3L NC today while at bedside, pt satting 92% with a great pleth. Pt also appears to be a mouth breather when sleeping as I witnessed. Pt requesting a nicotine patch today, she usually smokes 2 PPD. 11/17: Pt resting in bed, friend at the bedside. Pt does report still feeling SOB but congestion is better. Pt continues to have decreased appetite, encouraged her to keep eating. Ordering chocolate ensure today as it is pt preference. Pulm saw pt this AM, plan below. Review of Systems Review of Systems: 12 systems were reviewed and are negativ e except for as per HPI. Exam Narrative: Const: General: comfortable and no acute distress Other: Thin, chronically ill-appearing female lying in bed. HENMT: Face/Nose/Sinus: Normal nares present Other: tacky mucus membranes Eyes: General: appearance normal, both eyes and all related structures Sclera: sclerae normal Neck: Neck: supple and no JVD Carotids: no bruits Resp: Other: Currently on 5 L nasal cannula. Respirations are nonlabored and she is speaking in full sentences. Lung sounds are significantly diminished throughout with scattered rales/coarse LS. No wheezing. Cardio: Rate: regular rate Rhythm: regular rhythm GI: Inspection: non-distended Auscultation: normal bowel sounds Skin: General skin exam: normal color and no rashes or lesions noted Wounds: no wounds Neuro: Speech: normal speech Motor exam (neuro): Normal motor muscle tone present throughout Sensory Exam: normal sensation Extrem: General: normal to inspection, no edema and no pedal edema Psych: Mental Status: mental status grossly normal Affect: normal affect Objective Data Vital Signs Vital Signs: Vital Signs - 24 hr 11/16/24 09:28 11/16/24 09:28 11/16/24 09:38 Temperature Pulse Rate 71 74 Respiratory Rate 20 20 Blood Pressure Pulse Oximetry 91 Oxygen Delivery High Flow Nasal Cannula Oxygen Flow Rate 3 Fraction of Inspired Oxygen 11/16/24 14:15 11/16/24 14:15 11/16/24 14:40 Temperature Pulse Rate 82 86 Respiratory Rate 20 20 Blood Pressure Pulse Oximetry 88 L Oxygen Delivery High Flow Nasal Cannula Oxygen Flow Rate 3 Fraction of Inspired Oxygen 32 11/16/24 15:46 11/16/24 20:00 11/16/24 20:04 Temperature 97.9 F 97.9 F Pulse Rate 86 84 82 Respiratory Rate 24 H 20 18 Blood Pressure 189/53 H 165/61 H Pulse Oximetry 92 90 90 Oxygen Delivery High Flow Nasal Cannula Oxygen Flow Rate 5 Fraction of Inspired Oxygen 40 11/16/24 20:25 11/16/24 20:26 11/16/24 20:29 Temperature Pulse Rate 81 81 Respiratory Rate 20 Blood Pressure Pulse Oximetry 90 Oxygen Delivery High Flow Nasal Cannula Oxygen Flow Rate 5 Fraction of Inspired Oxygen 40 11/16/24 20:36 11/16/24 22:45 11/17/24 01:46 Temperature Pulse Rate 84 84 75 Respiratory Rate 20 20 20 Blood Pressure Pulse Oximetry 95 Oxygen Delivery High Flow Nasal Cannula Oxygen Flow Rate 5 Fraction of Inspired Oxygen 40 11/17/24 01:56 11/17/24 03:20 11/17/24 07:15 Temperature 97.6 F Pulse Rate 84 77 78 Respiratory Rate 20 18 20 Blood Pressure 151/50 H Pulse Oximetry 91 Oxygen Delivery Oxygen Flow Rate Fraction of Inspired Oxygen 11/17/24 07:15 11/17/24 07:28 11/17/24 08:29 Temperature 97.6 F Pulse Rate 75 85 Respiratory Rate 20 24 H Blood Pressure 178/60 H Pulse Oximetry 92 89 L Oxygen Delivery High Flow Nasal Cannula Oxygen Flow Rate 3 Fraction of Inspired Oxygen 32 11/17/24 08:31 Temperature Pulse Rate 85 Respiratory Rate Blood Pressure Pulse Oximetry Oxygen Delivery Oxygen Flow Rate Fraction of Inspired Oxygen Intake/Output Intake/Output: Intake & Output 11/14/24 11/15/24 11/16/24 11/17/24 23:59 23:59 23:59 23:59 Intake Total 1390 640 790 170 Output Total 700 700 600 400 Balance 690 -60 190 -230 Meds/Results Medications: Active Medications Generic Name Dose Route Start Last Admin Trade Name Freq PRN Reason Stop Dose Admin Acetaminophen 650 mg 11/13/24 22:45 11/15/24 20:33 Acetaminophen 325 Mg Tablet PO 650 mg Q6H PRN Administration Mild Pain (1-3) or Fever Acetylcysteine 200 mg 11/14/24 20:00 11/17/24 07:24 Acetylcysteine 20% Inhal Soln 800 Mg/4 Ml Vial INHALATION 200 mg Q6HRT LUCY Administration Albuterol/Ipratropium 3 ml 11/14/24 08:00 11/17/24 07:24 Ipratropium 0.5 Mg/Albuterol Sulfate 2.5 Mg Ampul.Neb 3 Ml INHALATION 3 ml Q6HRT LUCY Administration Atorvastatin Calcium 40 mg 11/14/24 09:00 11/17/24 08:32 Atorvastatin 40 Mg Tablet PO 40 mg DAILY LUCY Administration Budesonide 0.5 mg 11/14/24 20:00 11/17/24 07:24 Budesonide Respule Neb 0.5 Mg/2 Ml Amp INHALATION 0.5 mg Q12HRT LUCY Administration Buspirone HCl 10 mg 11/16/24 17:08 11/17/24 08:31 Buspirone Hcl 10 Mg Tablet PO 10 mg Q12HR PRN Administration Anxiety Carvedilol 12.5 mg 11/15/24 21:00 11/17/24 08:31 Carvedilol 12.5 Mg Tablet PO 12.5 mg Q12HR LUCY Administration Desmopressin Acetate 0.2 mg 11/14/24 21:00 11/16/24 20:29 Desmopressin Acetate 0.1 Mg Tablet PO 0.2 mg HS LUCY Administration Doxycycline Hyclate 100 mg 11/14/24 09:00 11/17/24 08:31 Doxycycline Hyclate 100 Mg Tablet PO 100 mg Q12HR LUCY Administration Escitalopram Oxalate 10 mg 11/14/24 21:00 11/16/24 20:30 Escitalopram Oxalate 10 Mg Tablet PO 10 mg HS LUCY Administration Furosemide 20 mg 11/14/24 09:00 11/17/24 08:32 Furosemide 20 Mg Tablet PO 20 mg QAM LUCY Administration Guaifenesin 1,200 mg 11/14/24 09:00 11/17/24 08:32 Guaifenesin 12 Hr 600 Mg Tabcr PO 1,200 mg Q12HR LUCY Administration Hydralazine HCl 10 mg 11/15/24 14:58 11/15/24 20:27 Hydralazine Hcl 20 Mg/Ml Vial IV PUSH 10 mg Q8H PRN Administration Hypertension systolic >180 Cefepime HCl 2 gm in 50 mls @ 100 mls/hr 11/14/24 03:00 11/17/24 03:25 Maxipime 2 Gm/Ns 50 Ml IVPB Infused Q12H LUCY Infusion Metronidazole 500 mg in 100 mls @ 100 mls/hr 11/14/24 04:00 11/17/24 03:25 Flagyl 500 Mg/Iso Soln 100 Ml IVPB 100 mls/hr Q8H LUCY Administration Lisinopril 40 mg 11/14/24 09:00 11/17/24 08:32 Lisinopril 20 Mg Tablet PO 40 mg QAM LUCY Administration Melatonin 5 mg 11/14/24 21:00 11/16/24 20:31 Melatonin 5 Mg Tablet PO 5 mg QHS LUCY Administration Methylprednisolone Sodium Succinate 40 mg 11/17/24 08:45 Methylprednisolone Sod Succ 125 Mg Vial IV PUSH Q6HR [facility] Nicotine 1 patch 11/16/24 10:00 11/16/24 12:03 Nicotine (*Pbkc) 21 Mg Patch TRANSDERM Not Given DAILY [facility] Perflutren Lipid Microsphere 0 ml 11/14/24 14:27 Perflutren Lipid Microspheres 1.5 Ml Vial Diluted To 10 Ml Total Volume IV PUSH 11/17/24 14:27 ONCE PRN adequate visualization Protocol Radiology Results: ITS Impressions Chest CTA 11/13/24 21:07 IMPRESSION: 1. No pulmonary embolism. 2. Mass measuring 4.1 x 2.9 cm in the right lower lobe. Further evaluation advised. Smaller nodule is seen adjacent to this mass in the right lower lobe area. 3. interstitial and alveolar opacification in the right middle , lower and upper lobes and left lower lobe suggestive of pneumonitis. 4. Extensive emphysematous changes seen bilaterally. 5. Right hilar and mediastinal lymphadenopathy. 6. The proximal abdominal aorta measures 3 cm. Chest X-Ray 11/15/24 21:22 IMPRESSION: Severe panlobular emphysematous disease without focal infiltrate or effusion. Redemonstration of a right lower lobe asymmetry by secondary signs on frontal view. Labs Labs: Laboratory Results - last 24 hr 11/17/24 11/17/24 04:45 04:52 WBC 13.3 H RBC 3.90 L Hgb 11.6 L Hct 38.3 MCV 98.2 MCH 29.7 MCHC 30.3 L RDW 15.5 H Plt Count 192 MPV 9.4 Sodium 135 L Potassium 3.6 Chloride 111 H Carbon Dioxide 14 L Anion Gap 10 BUN 17 Creatinine 0.70 Estim Creat Clear Calc 55 Estimated GFR > 60 Glucose 79 Calcium 7.4 L Total Bilirubin 0.7 AST 34 ALT 16 Alkaline Phosphatase 88 C-Reactive Protein 7.8 H NT-Pro-B Natriuret Pep 4050 H Total Protein 5.7 L Albumin 2.7 L Procalcitonin 0.2 Quality VTE Prophylaxis VTE prophylaxis: mechanical ordered
[2024-11-17] MEDS: methylPREDNISolone SOD SUCC 40 MG VIAL IV PUSH ×3 (09:03→17:31)
[2024-11-17] MEDS: FUROSEMIDE INJ 40 MG/4 ML VIAL IV PUSH (09:04)
--- NOTE | 2024-11-17 09:59 | PM.PNPUL ---
Progress Note: A&P Assessment and Plan (1) Postobstructive pneumonia: Code(s): J18.9 - Pneumonia, unspecified organism Status: Acute Assessment and Plan: Patient with worsening respiratory symptoms as an outpatient was treated with a Z-Gray and completed this on 11/10/2024 lung with steroids and felt no better. She is afebrile. She does have a leukocytosis with an elevated CRP at 15.1. CT scan shows right lower lobe consolidations with some infiltrate. COVID, influenza, RSV RT PCR assay negative. Blood cultures are pending. MRSA nasal swab negative. 11/14/24: Plan: I will treat for pneumonia including postobstructive pneumonia as she may have lung cancer in the right lower lobe. Sputum culture ordered. Urine Legionella, urine pneumococcal and serum mycoplasma IgM already sent. I will send a respiratory pathogen panel. I will send a procalcitonin on 11/15/2024. I will repeat a CRP on 11/15/2024. Patient was initiated on azithromycin, meropenem and vancomycin. This was changed to vancomycin, cefepime, Flagyl and doxycycline All started on 11/14/2024 when she was admitted to the floor. MRSA nasal swab negative and I will discontinue vancomycin. Inpatient Pulmonary Services will resume on 11/17/2024, call with questions. 11/17/24: Overall the patient tells me she is the same as yesterday but worse since 11/13/2024. She has rest shortness of breath and dyspnea with any activity. She has a mostly dry cough with minimal phlegm production no hemoptysis. Patient tells me she has difficulty expectorating. She feels hot and cold. She feels as if she has wheezes. She is afebrile. White blood cell count 13.3, creatinine 0.7, BNP has increased from 1720 on 11/12 2 4050 today. CRP has increased from 4.9 on 11/15 to 7.8 today. Procalcitonin 0.2. Plan: Continue cefepime, doxycycline and Flagyl all day 4. CRP is decreased from admission but increased over the last few days. Urine Legionella, urine pneumococcal, serum mycoplasma IgM and respiratory pathogen panel pending. Discussed with Lucia Howard, will follow with you. (2) Chronic obstructive pulmonary disease: Code(s): J44.9 - Chronic obstructive pulmonary disease, unspecified Status: Acute Assessment and Plan: Regarding her COPD, 118 hundred eighteen pack year tobacco use currently smoking 2 packs per day. She was diagnosed approximately 10 years ago. She does not remember having PFTs. I have no PFTs. For CT in our system from 06/11/[address] scan from 11/13/2024 demonstrates severe panlobular emphysema all lung hall. Patient tells me 10 years ago she had a collapsed lung requiring a chest tube and hospitalization and recovered. One year ago she could walk 2 blocks. Three months ago which is the last time she felt normal she could walk 1 block and was limited by leg pain. Patient had a fall and was admitted to [facility] approximately 6 months ago and at that time she was prescribed oxygen. The oxygen was delivered to her house but she did not know how to use it and returned it. At home she measures her pulse oximetry sitting on room air and this ranges from 81 to 91%. 11/13/2024: ABG on 2 L 7./34/70. started on trelegy 200 a few weeks ago and says that this does help her. 11/13/2024: Patient returned to the emergency room with worsening shortness of breath, cough and congestion. Room air saturations were 81%. She had rales and rhonchi. White blood cell count 14.5, eosinophils 0.7%. Creatinine 0.89. CRP 15.1. COVID, influenza and RSV RT PCR assay negative. MRSA nasal swab negative. ABG on 2 L 7.34/70. Patient was initiated on azithromycin, meropenem and vancomycin. This was changed to vancomycin, cefepime, Flagyl and doxycycline when she was admitted to the floor. 11/14/2024: Patient tells me she feels the same as she did yesterday. She has shortness of breath at rest and with activity and has not been out of bed. She had previously been on 3 L nasal cannula but the nurse told me her saturations went to 77% about 3 minutes before I entered. She was placed on 5 L and her saturations were 91%. She complains of being tired, no chest pain no hemoptysis. she says the phlegm is increased over the last 3 months and sometimes he gets stuck in her throat. Patient may or may not be having a COPD exacerbation. Agree with treatment for pneumonia including postobstructive pneumonia while holding off on systemic steroids. Plan: I will place the patient on DuoNebs q.6 hours, I will add nebulized budesonide 500 mcg b.i.d.. This represents maximal bronchodilators and I will discontinue trilogy. Patient is having difficulty expectorating. Continue guaifenesin 1200 mg p.o. b.i.d., Cornet flutter valve q.2 hours while awake, I will add Mucomyst nebulizer 200 mg q.6 hours. blood cultures are pending. Urine Legionella, urine pneumococcal and serum mycoplasma IgM already sent. I will send a respiratory pathogen panel. 11/17/24: Patient with worsening of breath over the last few days, inability to clear secretions. No wheezing on exam. Plan: I will add Solu-Medrol 40 mg IV q.6 hours for worsening symptoms. I will increase her DuoNebs to q.4 hours, Continue guaifenesin 1200 mg p.o. b.i.d., Cornet flutter valve q.2 hours while awake, she notices minimal change with Mucomyst nebulizer but will continue these. I will try Vest vibratory therapy today. (3) Acute respiratory failure with hypoxia: Code(s): J96.01 - Acute respiratory failure with hypoxia Status: Acute Assessment and Plan: The patient was discharged from [facility] approximately 6 months ago after a fall and was prescribed oxygen. The oxygen was delivered to her house but she did not know how to use it and returned it. At home she measures her pulse oximetry sitting on room air and this ranges from 81 to 91%. ABG on 2 L 7.46/34/70. There is no evidence of hypercarbic respiratory failure. Plan: Goal saturation 90-94%, currently the patient is on 3 L with saturations 91%. Adjust accordingly. 11/17/24: Patient was on 4 L nasal cannula when I enter the room and her saturations were 89%. I increased her to 5 L nasal cannula and her saturations were 90%. Plan: Goal saturation 90-94%. Currently the patient is on 5 L nasal cannula, adjust accordingly. (4) Malignant neoplasm of lower lobe, right bronchus or lung: Code(s): C34.31 - Malignant neoplasm of lower lobe, right bronchus or lung Status: Acute Assessment and Plan: Patient is followed by Oncology, Dr. Palomo, last note I have is from 10/24/2024. Patient had a CT-guided biopsy of a right lung mass on 07/21/2022 with scant atypical cells. In the comment it says morphologically compatible with carcinoma but is also morphologically compatible with reactive tissue. Completed SBRT 10/09/2022. CT scan 10/20/2024 showed a 2.1 cm right lower lobe nodule consolidation possibility of neoplasm. The mass has increased in size from the previous CT when it was 1.[address]-guided biopsy of the mass ordered and based on the pathology we will decide about PET scan. 11/12/2024: Patient presented to the hospital for outpatient CT-guided lung biopsy with low saturations and was sent to the emergency room. CT-guided Biopsy cannot be performed at [facility] as she requires oxygen. 11/13/2024: CT scan with 4.1 x 2.9 cm right lower lobe mass abutting the pleura and 1.4 cm right lower lobe nodule abutting the pleura. Bilateral hilar lymphadenopathy. 11/14/2024: Plan: Bronchoscopic biopsy at [facility] is not a consideration given the very low yield of the procedure. If tissue diagnosis is needed per oncology the patient will need to be referred to a higher level of care facility for CT-guided biopsy or consultation with interventional medical radiation dosimetrist for possible bronchoscopy with EBUS sampling of the hilar lymph nodes. I discussed this with the patient and currently the patient is refusing referral to a [facility]. Consider discussing with her oncologist, Dr. Palomo. 11/17/24: Dr. Palomo was made aware by hospitalist team that the patient was unable to receive her CT guided biopsy and that she in the hospital with hypoxemic respiratory failure. He wished the patient to follow-up with him as an outpatient so that a plan could be made regarding further workup of her increasing right lower lobe mass. Subjective Date/time seen: 11/17/24 09:59 Interval history: 11/14/2024: This is a new pulmonary consult for lung biopsy. 73-year-old with a history of hypertension, hyperlipidemia, GERD, Subclavian artery stenosis status post stent, renal artery stenosis, Peripheral artery disease status post right carotid endarterectomy 1995, left carotid endarterectomy .COPD, radiographic lung cancer status post XRT. Regarding her COPD she was diagnosed approximately 10 years ago. She does not remember having PFTs. patient tells me 10 years ago she had a collapsed lung requiring a chest tube and hospitalization and recovered.One year ago she could walk 2 blocks. Three months ago which is the last time she felt normal she could walk 1 block and was limited by leg pain. Patient had a fall and was admitted to [facility] approximately 6 months ago and at that time she was prescribed oxygen. The oxygen was delivered to her house but she did not know how to use it and returned it. At home she measures her pulse oximetry sitting on room air and this ranges from 81 to 90 1%. Patient smoked tobacco from age 14 to current at 2 packs per day for 118 pack years, patient was exposed to secondhand smoke from both of her parents. She worked on an [employer] line and was exposed to acetate but denies exposure to sandblasting, welding, asbestos, professional painting, steel ball mill mixer, coal mining or construction work. Patient is followed by Oncology, Dr. Palomo, last note I have is from 10/24/2024. Patient had a CT-guided biopsy of a right lung mass on 07/21/2022 with scant atypical cells. In the comment it says morphologically compatible with carcinoma but is also morphologically compatible with reactive tissue. Completed SBRT 10/09/2022. CT scan 10/20/2024 showed a 2.1 cm right lower lobe nodule consolidation possibility of neoplasm. The mass has increased in size from the previous CT when it was 1.[address]-guided biopsy of the mass ordered and based on the pathology we will decide about PET scan. 11/05/2024: PCP office visit note for 1 week of cough and congestion. Room air saturations were listed as 75%. She had rhonchi and wheezes and was prescribed a Z-Gray and steroids. Patient took these medicines but felt no improvement. 11/12/2024: Patient presented to the hospital for outpatient CT-guided lung biopsy with low saturations and was sent to the emergency room. She had a white count of 13.4, creatinine 0.85, BNP 1720 and required 2 L nasal cannula for saturation 93%. Patient left AMA. 11/13/2024: Patient returned to the emergency room with worsening shortness of breath, cough and congestion. Room air saturations were 81%. She had rales and rhonchi. White blood cell count 14.5, eosinophils 0.7%. Creatinine 0.89. CRP 15.1. COVID, influenza and RSV RT PCR assay negative. MRSA nasal swab negative. ABG on 2 L 7.46/34/70. Patient was initiated on azithromycin, meropenem and vancomycin. This was changed to vancomycin, cefepime, Flagyl and doxycycline when she was admitted to the floor. 11/13/2024: Patient tells me she feels the same as she did yesterday. She has shortness of breath at rest and with activity and has not been out of bed. She had previously been on 3 L nasal cannula but the nurse told me her saturations went to 77% about 3 minutes before I entered. She was placed on 5 L and her saturations were 91%. She complains of being tired, no chest pain no hemoptysis. she says the phlegm is increased over the last 3 months and sometimes he gets stuck in her throat. 11/17/24: Overall the patient tells me she is the same as yesterday but worse since 11/13/2024. She has rest shortness of breath and dyspnea with any activity. She has a mostly dry cough with minimal phlegm production no hemoptysis. Patient tells me she has difficulty expectorating. She feels hot and cold. She feels as if she has wheezes. She is afebrile. White blood cell count 13.3, creatinine 0.7, BNP has increased from 1720 on 11/12 2 4050 today. CRP has increased from 4.9 on 11/15 to 7.8 today. Procalcitonin 0.2. DATA: 11/15/24: Summary 1. Complete two-dimensional, color flow and Doppler transthoracic echocardiogram is performed. 2. Left ventricular chamber dimension is normal. 3. Left ventricular systolic function is normal, estimated at 60-65. 4. There is mild concentric increased left ventricular wall thickness. 5. The left ventricular diastolic function is grade I diastolic dysfunction. 6. E/e' 9 is minimally elevated. 7. Left atrial chamber dimension is moderately enlarged. 8. There is mild aortic valve sclerosis. 9. The mitral valve has a mildly calcified annulus. 10. There is trace mitral valve regurgitation. Right Ventricle Right ventricular chamber dimension is normal. Right ventricular systolic function is normal. Right Atria Right atrial chamber dimension is normal. Tricuspid Valve There is trace tricuspid valve regurgitation. RVSP is not calculated due to an inadequate TR jet. 11/13/2024: CTA chest PE protocol History: 73 years Female with . shortness of breath . Comparison: October 20, 2024 Findings: PULMONARY ARTERIES: No pulmonary embolus. VISUALIZED THORACIC INLET: Normal. MEDIASTINUM: Aorta/coronary arteries: Mild atheromatous disease. Heart/other: The heart is not enlarged. Lymph nodes: Prevascular lymphadenopathy is seen with the largest measures 1.6 cm. Bilateral hilar lymphadenopathy more in the right side. Subcarinal calcified lymph notes. Calcified lymph node in the left hilum. LUNGS: Emphysematous changes of the lungs. A mass is seen in the right lower lobe measuring 4.1 x 2.9 cm. Further evaluation advised. Smaller nodule is seen medially in the right lower lobe measuring 1.4 cm. Minimal interstitial opacification is seen in the right middle lobe and right upper lobe. Interstitial opacification also seen around the mass in the right lower lobe. Minimal interstitial opacification the left lung base. Right pleural effusion. No pulmonary nodules . No pneumothorax. VISUALIZED UPPER ABDOMEN: Proximal abdominal aorta measures 3 cm. Stent is seen in the left renal artery. Status post cholecystectomy. Slightly prominent pancreatic duct. Prominent CBD measuring 1.1 cm.. Otherwise, the visualized upper abdomen is normal. MUSCULOSKELETAL: Soft tissues: The superficial soft tissues are normal. Bones: Age appropriate degenerative changes of the spine. Increased kyphosis. Osteopenia of the bones. IMPRESSION: 1. No pulmonary embolism. 2. Mass measuring 4.1 x 2.9 cm in the right lower lobe. Further evaluation advised. Smaller nodule is seen adjacent to this mass in the right lower lobe area. 3. interstitial and alveolar opacification in the right middle , lower and upper lobes and left lower lobe suggestive of pneumonitis. 4. Extensive emphysematous changes seen bilaterally. 5. Right hilar and mediastinal lymphadenopathy. 6. The proximal abdominal aorta measures 3 cm. 07/10/2024: EXAMINATION: PET skull to mid thigh DATE: 07/10/2024 12:18 INDICATION: Malignant neoplasm of lung. TECHNIQUE: Blood glucose level was 93 mg/dL. 10.966 mCi of 18-fluorodeoxyglucose (18-FDG) was administered i.v. Low dose computed tomography (CT) images were acquired from the base of the brain to the proximal thighs for attenuation correction and anatomic localization. Automated exposure control was employed. Dose-length product (DLP) was 805 mGy-cm. Positron emission tomography (PET) images were acquired in the same distribution. COMPARISON: PET/CT 06/01/2022, chest CT 06/18/2024, 05/07/23 FINDINGS: Head/neck: There are likely changes of ocular lens replacement surgeries. There are scattered areas of low attenuation in the cerebral white matter, likely chronic small vessel ischemic disease. 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 There are no pathologically enlarged lymph nodes. Chest: There is a stent in proximal left subclavian artery. There is severe emphysema. A calcified left lung nodule and calcified left hilar and mediastinal lymph nodes are consistent with old granulomatous disease. There are airspace opacities in the lower lobes, right worse than left, with increased activity. There is increased activity in normal-sized and borderline-enlarged right hilar and mediastinal lymph nodes. No pleural effusion. The heart size is normal. There are coronary artery calcifications. No pericardial effusion. Abdomen/pelvis/proximal thighs: The liver is normal. There are changes of cholecystectomy. Calcifications in the spleen are consistent with old granulomatous disease. The pancreas, adrenal glands, and kidneys are normal. There are stents in the left bilateral common iliac arteries and left external iliac artery. There are no dilated loops of bowel. 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 There is a stent in left renal artery. There are no pathologically enlarged lymph nodes. There is no free intraperitoneal fluid. There is no osseous malignancy. There is subcutaneous old fat necrosis in right buttock. IMPRESSION: 1. Airspace opacities with increased activity in the lower lobes, right worse than left, consistent with radiation pneumonitis. 2. Severe emphysema. 3. Increased activity in normal-sized and borderline-enlarged right hilar and mediastinal lymph nodes, which may be reactive or metastatic disease. 06/18/2024: EXAMINATION: CT diagnostic chest w con INDICATION: C34.31 - Malignant neoplasm of lower lobe, right bronchus... COMPARISON: 02/22/2024 and 09/11/2022 FINDINGS: Severe emphysema with biapical pleural-parenchymal scarring. Calcified nodule at the left apex along with calcified left hilar and mediastinal lymph nodes consistent with old granulomatous disease. There is septal line thickening bilaterally basilar lower lobes, right middle lobe and lingula. Interval increase in size of a high attenuation potentially enhancing 1.7 x 1.4 cm spiculated nodule in the superior segment of the right lower lobe which measured approximately 1.2 x 1.1 cm on 12/13/2023. No significant interval change in a more caudal and lower density peripheral bandlike region of consolidation extending approximately 6 cm medial laterally measuring up to 1.5 cm in thickness likely related to changes of chronic radiation pneumonitis. No pleural effusion. Heart size is normal. Atherosclerotic coronary artery calcific location. No pericardial effusion. Thoracic aorta is normal in caliber with no dissection. There is stenting at the origin of the left subclavian artery. No significant change since 09/11/2022 in mild right hilar lymphadenopathy which favors reactive or metastatic lymph nodes. No other pathologically enlarged thoracic lymphadenopathy. A few calcified splenic granulomata. Mild to moderate thoracic spondylosis with bridging osteophytes at multiple levels consistent with diffuse idiopathic skeletal hyperostosis (DISH). IMPRESSION: 1. Enlargement of a now 1.7 x 1.4 cm higher attenuation, likely enhancing spiculated nodule in the superior segment of the right lower lobe suspicious for progression of primary lung cancer. 2. No interval change in a more caudal peripheral band of consolidation in the right lower lobe likely related to chronic radiation fibrosis for reported prior treatment of an earlier mildly FDG avid nodule at this location suspicious for lung cancer. 3. Severe emphysema. 4. Mild right hilar lymphadenopathy unchanged since 09/11/2022 which in the absence of interval treatment would favor reactive over metastatic lymphadenopathy. 11/08/2023: Echo Summary 1. Left ventricular chamber dimension is normal. 2. Left ventricular systolic function is normal, estimated at 65-70%. 3. The left ventricular diastolic function is grade I diastolic dysfunction. 4. Global longitudinal strain is abnormal at -15 %. 5. Right ventricular systolic function is normal. 6. Left atrial chamber dimension is mildly enlarged. 7. There is mild tricuspid valve regurgitation. 8. There is mild pulmonic regurgitation. Left Ventricle Left ventricular chamber dimension is normal. Left ventricular systolic function is normal, estimated at 65-70%. There is no increased left ventricular wall thickness. The left ventricular diastolic function is grade I diastolic dysfunction. Global longitudinal strain is abnormal at -15 %. Right Ventricle Right ventricular chamber dimension is normal. Right ventricular systolic function is normal. Left Atria Left atrial chamber dimension is mildly enlarged. Right Atria Right atrial chamber dimension is normal. Atrial Septum Intact interatrial septum visualized by color flow imaging. Review of Systems Constitutional: Constitutional: Reports no additional constitutional complaints Eyes: Eyes: Reports no additional eye complaints ENT: Reports system reviewed and no additional complaints, except as documented Cardiovascular: Cardiovascular: Reports no additional cardiovascular complaints Respiratory: Respiratory: Reports no additional respiratory complaints Gastrointestinal: Gastrointestinal: Reports no additional gastrointestinal complaints Musculoskeletal: Musculoskeletal: Reports no additional musculoskeletal complaints Neurologic: Reports system reviewed and no additional complaints, except as documented Psychiatric: Psychiatric: Reports no additional psychiatric complaints Endocrine: Endocrine: Reports no additional endocrine complaints Hematologic/Lymphatic: Hematologic/Lymphatic: Reports no additional hematologic/lymphatic complaints Allergic/Immunologic: Allergic/Immunologic: Reports no additional allergic/immunologic complaints Exam Const: General: cooperative and comfortable Orientation/consciousness: oriented to person, oriented to place and oriented to time Other: Ill-appearing HENMT: Head: normal to inspection Ears: hearing grossly normal bilaterally Eyes: General: appearance normal, both eyes and all related structures Neck: Neck: normal visual inspection Chest: Chest palpation & inspection: normal inspection of the chest Resp: Effort & Inspection: normal respiratory effort and able to speak in complete sentences Auscultation: no crackles, no rales, no rhonchi, no wheezes and lung sounds not diminished Other: crackles throughout with no wheezes. Unable to clear secretions. Cardio: Jugular venous distension: no JVD GI: Inspection: normal to inspection Skin: General skin exam: normal color Neuro: General: oriented to person, oriented to place and oriented to time Extrem: General: normal to inspection Psych: Appearance: grossly normal Objective Data Vital Signs Vital Signs: Vital Signs - 24 hr 11/16/24 14:15 11/16/24 14:15 11/16/24 14:40 Temperature Pulse Rate 82 86 Respiratory Rate 20 20 Blood Pressure Pulse Oximetry 88 L Oxygen Delivery High Flow Nasal Cannula Oxygen Flow Rate 3 Fraction of Inspired Oxygen 32 11/16/24 15:46 11/16/24 20:00 11/16/24 20:04 Temperature 36.6 C 36.6 C Pulse Rate 86 84 82 Respiratory Rate 24 H 20 18 Blood Pressure 189/53 H 165/61 H Pulse Oximetry 92 90 90 Oxygen Delivery High Flow Nasal Cannula Oxygen Flow Rate 5 Fraction of Inspired Oxygen 40 11/16/24 20:25 11/16/24 20:26 11/16/24 20:29 Temperature Pulse Rate 81 81 Respiratory Rate 20 Blood Pressure Pulse Oximetry 90 Oxygen Delivery High Flow Nasal Cannula Oxygen Flow Rate 5 Fraction of Inspired Oxygen 40 11/16/24 20:36 11/16/24 22:45 11/17/24 01:46 Temperature Pulse Rate 84 84 75 Respiratory Rate 20 20 20 Blood Pressure Pulse Oximetry 95 Oxygen Delivery High Flow Nasal Cannula Oxygen Flow Rate 5 Fraction of Inspired Oxygen 40 11/17/24 01:56 11/17/24 03:20 11/17/24 07:15 Temperature 36.4 C Pulse Rate 84 77 78 Respiratory Rate 20 18 20 Blood Pressure 151/50 H Pulse Oximetry 91 Oxygen Delivery Oxygen Flow Rate Fraction of Inspired Oxygen 11/17/24 07:15 11/17/24 07:28 11/17/24 08:29 Temperature 36.4 C Pulse Rate 75 85 Respiratory Rate 20 24 H Blood Pressure 178/60 H Pulse Oximetry 92 89 L Oxygen Delivery High Flow Nasal Cannula Oxygen Flow Rate 3 Fraction of Inspired Oxygen 32 11/17/24 08:31 11/17/24 08:31 Temperature Pulse Rate 85 85 Respiratory Rate 24 H Blood Pressure Pulse Oximetry 90 Oxygen Delivery High Flow Nasal Cannula Oxygen Flow Rate 5 Fraction of Inspired Oxygen Intake/Output Intake/Output: Intake & Output 11/14/24 11/15/24 11/16/24 11/17/24 23:59 23:59 23:59 23:59 Intake Total 1390 640 790 170 Output Total 700 700 600 400 Balance 690 -60 190 -230 Meds/Results Medications: Active Medications Generic Name Dose Route Start Last Admin Trade Name Freq PRN Reason Stop Dose Admin Acetaminophen 650 mg 11/13/24 22:45 11/15/24 20:33 Acetaminophen 325 Mg Tablet PO 650 mg Q6H PRN Administration Mild Pain (1-3) or Fever Acetylcysteine 200 mg 11/14/24 20:00 11/17/24 07:24 Acetylcysteine 20% Inhal Soln 800 Mg/4 Ml Vial INHALATION 200 mg Q6HRT LUCY Administration Albuterol/Ipratropium 3 ml 11/14/24 08:00 11/17/24 07:24 Ipratropium 0.5 Mg/Albuterol Sulfate 2.5 Mg Ampul.Neb 3 Ml INHALATION 3 ml Q6HRT LUCY Administration Atorvastatin Calcium 40 mg 11/14/24 09:00 11/17/24 08:32 Atorvastatin 40 Mg Tablet PO 40 mg DAILY LUCY Administration Budesonide 0.5 mg 11/14/24 20:00 11/17/24 07:24 Budesonide Respule Neb 0.5 Mg/2 Ml Amp INHALATION 0.5 mg Q12HRT LUCY Administration Buspirone HCl 10 mg 11/16/24 17:08 11/17/24 08:31 Buspirone Hcl 10 Mg Tablet PO 10 mg Q12HR PRN Administration Anxiety Carvedilol 12.5 mg 11/15/24 21:00 11/17/24 08:31 Carvedilol 12.5 Mg Tablet PO 12.5 mg Q12HR LUCY Administration Desmopressin Acetate 0.2 mg 11/14/24 21:00 11/16/24 20:29 Desmopressin Acetate 0.1 Mg Tablet PO 0.2 mg HS LUCY Administration Doxycycline Hyclate 100 mg 11/14/24 09:00 11/17/24 08:31 Doxycycline Hyclate 100 Mg Tablet PO 100 mg Q12HR LUCY Administration Escitalopram Oxalate 10 mg 11/14/24 21:00 11/16/24 20:30 Escitalopram Oxalate 10 Mg Tablet PO 10 mg HS LUCY Administration Furosemide 20 mg 11/14/24 09:00 11/17/24 08:32 Furosemide 20 Mg Tablet PO 20 mg QAM LUCY Administration Guaifenesin 1,200 mg 11/14/24 09:00 11/17/24 08:32 Guaifenesin 12 Hr 600 Mg Tabcr PO 1,200 mg Q12HR LUCY Administration Hydralazine HCl 10 mg 11/15/24 14:58 11/15/24 20:27 Hydralazine Hcl 20 Mg/Ml Vial IV PUSH 10 mg Q8H PRN Administration Hypertension systolic >180 Cefepime HCl 2 gm in 50 mls @ 100 mls/hr 11/14/24 03:00 11/17/24 03:25 Maxipime 2 Gm/Ns 50 Ml IVPB Infused Q12H LUCY Infusion Metronidazole 500 mg in 100 mls @ 100 mls/hr 11/14/24 04:00 11/17/24 03:25 Flagyl 500 Mg/Iso Soln 100 Ml IVPB 100 mls/hr Q8H LUCY Administration Lisinopril 40 mg 11/14/24 09:00 11/17/24 08:32 Lisinopril 20 Mg Tablet PO 40 mg QAM LUCY Administration Melatonin 5 mg 11/14/24 21:00 11/16/24 20:31 Melatonin 5 Mg Tablet PO 5 mg QHS LUCY Administration Methylprednisolone Sodium Succinate 40 mg 11/17/24 08:50 11/17/24 09:03 Methylprednisolone Sod Succ 40 Mg Vial IV PUSH 40 mg Q6HR LUCY Administration Nicotine 1 patch 11/16/24 10:00 11/17/24 09:05 Nicotine (*Pbkc) 21 Mg Patch TRANSDERM Not Given DAILY LUCY Perflutren Lipid Microsphere 0 ml 11/14/24 14:27 Perflutren Lipid Microspheres 1.5 Ml Vial Diluted To 10 Ml Total Volume IV PUSH 11/17/24 14:27 ONCE PRN adequate visualization Protocol Radiology Results: ITS Impressions Chest CTA 11/13/24 21:07 IMPRESSION: 1. No pulmonary embolism. 2. Mass measuring 4.1 x 2.9 cm in the right lower lobe. Further evaluation advised. Smaller nodule is seen adjacent to this mass in the right lower lobe area. 3. interstitial and alveolar opacification in the right middle , lower and upper lobes and left lower lobe suggestive of pneumonitis. 4. Extensive emphysematous changes seen bilaterally. 5. Right hilar and mediastinal lymphadenopathy. 6. The proximal abdominal aorta measures 3 cm. Chest X-Ray 11/15/24 21:22 IMPRESSION: Severe panlobular emphysematous disease without focal infiltrate or effusion. Redemonstration of a right lower lobe asymmetry by secondary signs on frontal view. Labs Labs: Laboratory Results - last 24 hr 11/17/24 11/17/24 04:45 04:52 WBC 13.3 H RBC 3.90 L Hgb 11.6 L Hct 38.3 MCV 98.2 MCH 29.7 MCHC 30.3 L RDW 15.5 H Plt Count 192 MPV 9.4 Sodium 135 L Potassium 3.6 Chloride 111 H Carbon Dioxide 14 L Anion Gap 10 BUN 17 Creatinine 0.70 Estim Creat Clear Calc 55 Estimated GFR > 60 Glucose 79 Calcium 7.4 L Total Bilirubin 0.7 AST 34 ALT 16 Alkaline Phosphatase 88 C-Reactive Protein 7.8 H NT-Pro-B Natriuret Pep 4050 H Total Protein 5.7 L Albumin 2.7 L Procalcitonin 0.2
[2024-11-17] MEDS: ACETAMINOPHEN 325 MG TABLET 650 MG PO (16:16)
[2024-11-17] MEDS: MELATONIN 5 MG TABLET PO (21:08)
[2024-11-17] MEDS: DESMOPRESSIN ACETATE 0.1 MG TABLET 0.2 MG PO (21:08)
[2024-11-17] MEDS: ESCITALOPRAM OXALATE 10 MG TABLET PO (21:08)
[2024-11-18] VITALS (17 sets, daily range): BP systolic 134–174; BP diastolic 47–51; PULSE 62–80; RESP 18–24; TEMP 36.4–36.5; O2SAT 90–95
[2024-11-18] MEDS: methylPREDNISolone SOD SUCC 40 MG VIAL IV PUSH ×4 (01:18→17:28)
--- NOTE | 2024-11-18 02:21 | PCRCNOTE ---
Addendum entered by Florencio Chapman, [employer]ACH[employer] 11/18/24 05:10: 0430: RN called RT for treatment as patient was coarse, with productive coughing and experiencing increased work of breathing; patient SpO2:84%, increase HFNC to 6 L/min, 0200 treatment given at this time followed by 3 sets of 10 with Coronet to aid in mobilization of secretions; patient left stable on HFNC 6 L/min SpO2 91% Original Note: Patient refuses respiratory therapies for scheduled 0 round, hoping for undisturbed sleep; RN informed; has been coarse but nonproductive; SpO2: 92% on 3.5 L/min HFNC
[2024-11-18] MEDS: metroNIDAZOLE 500 MG/ISO 100ML 500 MG/100 ML BAG 100 MG IVPB (03:35)
[2024-11-18] MEDS: CEFEPIME 2 GM/NS 50 ML 2 GM/50 ML BAG IVPB ×2 (03:36→14:08)
[2024-11-18] MEDS: IPRATROPIUM 0.5 MG/ALBUTEROL SULFATE 2.5 MG AMPUL.NEB 3 ML INHALATION ×4 (04:32→20:38)
[2024-11-18] MEDS: ACETYLCYSTEINE 20% INHAL SOLN 800 MG/4 ML VIAL 200 MG INHALATION ×4 (04:32→20:38)
[2024-11-18 05:20] LABS: Hematocrit 39.6 % (37.0-47.0); Hemoglobin 12.5 g/dL (12.0-15.0); Mean Corpuscular HGB Conc 31.6 g/dl (32-36); Mean Corpuscular Hemoglobin 30.4 pg (26-34); Mean Corpuscular Volume 96.4 fl (80-100); Mean Platelet Volume 9.6 fl (7.4-10.4); Platelet Count Result 224 k/mm3 (150-375); Red Blood Count 4.11 M/mm3 (4.2-5.4); Red Cell Distribution Width 15.3 % (11.5-14.5); White Blood Count 10.3 K/mm3 (4.5-10.0)
[2024-11-18] MEDS: ACETAMINOPHEN 325 MG TABLET 650 MG PO ×2 (05:20→21:11)
[2024-11-18 05:44] LABS: Alanine Aminotransferase 23 U/L (6-35); Albumin Level 3.2 g/dL (3.5-5.1); Alkaline Phosphatase 94 U/L (38-126); Anion Gap 15 mmol/L (4-12); Aspartate Amino Transferase 34 U/L (14-36); Bilirubin,Total 0.6 mg/dL (0.2-1.3); Blood Urea Nitrogen 28 mg/dL (7-17); Calcium 7.6 mg/dL (8.4-10.2); Carbon Dioxide 15 mmol/L (22-30); Chloride 108 mmol/L (98-107); Estimated CRCL calculation 45 ml/min; Estimated Glomerular Filt Rate > 60; Glucose 133 mg/dL (65-110); NT Pro B Type Natriuretic Pept 3720 pg/mL (19.9-100); Potassium 3.8 mmol/L (3.4-5.0); Sodium 138 mmol/L (137-145); Total Protein 6.3 g/dL (6.3-8.2)
[2024-11-18] MEDS: BUDESONIDE RESPULE NEB 0.5 MG/2 ML AMP INHALATION ×2 (07:50→20:38)
--- NOTE | 2024-11-18 08:26 | P.PNIM_ITS ---
Progress Note: A&P Assessment and Plan (1) Acute respiratory failure with hypoxia: Code(s): J96.01 - Acute respiratory failure with hypoxia Status: Acute Assessment and Plan: Pt presented to the ED for evaluation of increased SOB, cough, increased sputum, and chills that has worsened over the last several days. -Chest CT shows an increase in a right lower lobe mass concerning for malignant as well as findings of pneumonia. -->She received azithromycin, meropenem, and vancomycin in the ED. -->Her antibiotics will be changed to cefepime (patient reports anaphylaxis to penicillin in the ; cefepime has a different structure and is considered safe to prescribed), doxycycline, metronidazole, and vancomycin to cover possible postobstructive pneumonia. -Continue scheduled bronchodilators. -Andrest Mucinex ordered to help mobilize secretions. -->Sputum culture pending, container at bedside and reminded her about the need for it. -She is currently on 3 L and admits that she was told a couple of months ago that she needs oxygen at home however she called the company and had them remove attending from her home as she did not know how to use it. She will need a home oxygen evaluation prior to discharge. 11/14: Pt still c/o of SOB but reports that she feels 100% than yesterday but I would feel better if I didn't have all this sputum. -Plan to continue with above plan as well as serial AM labs and O2 assessment -Pending PULM consult, see below. 11/15: Bump in WBC over night, will continue to monitor, re-imaging may be needed if continues to climb. Continue IV abx and breathing tx. CRP continues to be elevated but is down trending. Per nursing, pt went up to 8L of O2 overnight due to increased need and has been on since. Asked nursing to trial titrate down to baseline 3L NC to see how she does. Per PULM yesterday, pt desatted while he was in room due to mucus plug, may be related again last night? Pt appears to be less congested today. 11/16: WBC starting to down trend once again, will continue to monitor daily labs. Continue IV abx and breathing tx. Per chart, pt needed an increase of O2 overnight (was placed on 9L NC) and the provider overnight ordered an acute CXR which looks similar to prior. Pt reports that she had an anxiety attack last night, this may be why this increase in O2 need occurred. Pt titrated back down to 3L NC by me today at the bedside and she maintained an O2 of 92%; O2 goal of 90-94%. No wheezing still upon my exam today, but lungs are still sounding very coarse throughout. 11/17: Pulm rounded again today is going to make a few adjustments: -Chest therapy, Solumedrol 40mg Q6, he will continue to see the pt, please see pulm note. -Pt reports having difficulty keeping up breathing zavala. Her BNP is elevated since admission, will give 40mg IV Lasix today to see if it helps with her breathing. Continue to trend BNP levels 11/18: WBC down trending once again. Pulm rounding when I rounded. Discussed no new plans, continue with chest therapy, steroids, and assessment of breathing. Pt on 4L NC now satting 95% and stable. No wheezing. Switched from IV Flagyl to oral Flagyl today. (2) Postobstructive pneumonia: Code(s): J18.9 - Pneumonia, unspecified organism Status: Acute Assessment and Plan: See above. (3) Right lower lobe lung mass: Code(s): R91.8 - Other nonspecific abnormal finding of lung field Status: Acute Assessment and Plan: Chest CTs performed in June and more recently October 2024 show a continued increase in the RLL nodule concerning for malignancy. She was scheduled for a CT-guided biopsy yesterday however she was hypoxic on arrival and the biopsy was canceled. She was then sent to the emergency department with plans for admission however she left against medical advice. -Continue to hold clopidogrel and she will be NPO after midnight for possible CT-guided lung biopsy tomorrow depending on the radiologist schedule. 11/14: -CT biopsy of lung ordered for today but per CT, unable to do if pt is actively using O2. Per nursing, pt does not use O2 at home, but, per hospitalist note, pt was told a couple of months ago that she needs O2 at home however she called the company and had them remove O2 from her home as she did not know how to use it. She will need a home oxygen evaluation prior to discharge. -->Upon interview today, pt states that she was not given any direction on how to work home O2, that is why she has not been using it -->Encouraged nursing to try to downtrend pt O2 while inpt to obtain biopsy. -->Pending PULM consult and appreciate their recommendations for lung mass work- up Pulm, Dr. Bañuelos, saw pt and updated me on plan, please see his thorough note. -Per pt report she is still smoking 2 ppd, 118 year hx. Pt recently went to PCP office for a cough and congestion on 11/05 and at that time her O2 sat was charted as 75%, pt was given Zpak and steroids and their of those tx worked. Also reporting home sats of 81-91% per pulse ox. Pt was given O2 delivered to her home in June 2024 and set all of the O2 back. -Goals of O2 90-94% -Plan to D/C vanc due to MRSA swab being negative, add echo, add on CPR and procal for AM labs, and add Mucomyst 200mg Q6 to help with sputum, and a resp pathogen panel. -Plan to continue with no systemic steroids, recs for adding Solumedrol 40mg Q6 x1 day and change to prednisone for the remaining x4 days if develops wheezing. -Pt will require higher level of care for biopsy due to O2 use, but declines going to [facility]. -I updated Dr. Palomo (pts onc) about her not being able to get the biopsy performed on 11/12 and the need for higher level of care for this but refusing transfer to [facility]. He recs f/u in his office to plan further intervention / treatment. -->Has been treated by Dr. Palomo in the past with radiation and the last biopsy that was attempted was in 2022 and it came back inconclusive Will continue to treat PNA and COPD exac with cefe, Doxy, and Flagyl for gram neg and abnormal PNA coverage. Pending ECHO, AM labs, VS, and breathing status. 11/15: Reiterated plan for onc f/u outpt to pt today, told her that I spoke to Dr. Palomo and this was his recommendation for further management. Pt agreeable with the plan. ECHO resulted unremarkable today. 11/17: Reiterated plan for onc f/u outpt to pt today, told her that I spoke to Dr. Palomo and this was his recommendation for further management. Pt agreeable with the plan. 11/18: Once again reiterated plan for onc f/u outpt to pt today, told her that I spoke to Dr. Palomo and this was his recommendation for further management. Pt agreeable with the plan. (4) Chronic obstructive pulmonary disease: Code(s): J44.9 - Chronic obstructive pulmonary disease, unspecified Status: Acute Assessment and Plan: Continue home meds, abx for PNA ordered (5) Hypertension: Code(s): I10 - Essential (primary) hypertension Status: Acute Assessment and Plan: Blood pressures have been running high and will be monitored closely for possible adjustments in medication depending on how she trends. -Her home medications have been reviewed and resumed as appropriate. 11/15: Pt BPs still running high, systolic 150/170. Increased home Coreg from 6.25mg BID to 12.5mg BID. Also ordered hyral PRN. 11/16: HTN baseline and a bit higher overnight, pt reports having a panic attack. Pt to receive second dose of increased coreg of 12.5 BID this AM, will continue to monitor. x1 dose of hydral was used last night. 11/17: Pt HTN continue to be moderately elevated, BNP today elevated at to 4050 from 1720 on 11/12, will give a x1 dose of Lasix 40mg today IV to help alleviate sx and BP. Will continue to monitor BNP daily and BP. Kidney labs WDL. 11/18: HTN has been more stable over the last 24 hours, will continue to monitor BNP and treat with Lasix. Continue with daily labs (6) Anxiety: Code(s): F41.9 - Anxiety disorder, unspecified Status: Acute Assessment and Plan: Restarted home meds of escitalopram -Started Buspar for breakthrough anxiety on 11/16 BID PRN, room to increase to TID if needed -No bezos recommended due to O2 need and resp status Plan Continue to monitor pt and SOB assessment, breathing status, and lung sounds. Continue to trend labs, need for O2/assessment, pending sputum culture, and resp pathogen results. Pulm to follow. 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 Chest CTs done in June and more recently last month show a continued increase in the right lower lobe nodule concerning for malignancy. She was scheduled for a CT-guided biopsy y esterday however she was hypoxic on arrival and the biopsy was canceled. She was then sent to the emergency department with plans for admission however she left against medical advice. Since that time she has been feeling worse and endorses chills, an increase in sputum production, and shortness of breath. She denies documented fever, sore throat, chest pain, pleuritic pain, palpitations, hemoptysis, nausea, vomiting, diarrhea, lower extremity edema, and calf pain. In the ED: Vital signs on arrival include a temperature of 99?, blood pressure 160/52, pulse 81, respiratory 20, SpO2 82% on room air. Labs were significant for WBC count of 14.5, sodium 135, potassium 3.3, lactic acid 1.7, CRP 15.1. She tested negative for influenza, RSV, COVID, and nasal MRSA. Chest CTA was negative for pulmonary embolism. A 4.1 x 2.9 cm mass was seen in the right lower lobe with findings suggestive of pneumonitis, right hilar and mediastinal lymphadenopathy, and emphysematous changes. She received azithromycin, meropenem, and vancomycin for possible postobstructive pneumonia. She is being admitted in this setting for further treatment. 11/14: Visited pt in her room and she was lying resting in bed. Pt wearing 3L O2. Pt reports that she is still SOB but feels 100% better than I did yesterday. Pt reports that she has been told before that she is in need of wearing O2 at home, but has never been instructed on how to get this set up. Pt also states that she has an appt with a bilingual trainer in March but that was the first availability to be seen. Pt still in need of lung biopsy today but per rads/CT, since pt is on O2, she cannot get biopsy due to risk of pneumo. Pulm consulted today for guidance. 11/15: Pt lying in bed resting, looking similar to yesterday upon exam. She is now wearing 8L NC due to an increased need of O2 overnight. Pt reports that she is breathing fine and reports being less congested today. Denies CP, SOB, and wheezing. Updated her on the plan to f/u with onc outpt for further management regarding the lung biopsy. 11/16: Pt resting in bed, states that she is sleepy today due to an eventful night, she states that she had an anxiety attack (this could explain her increased O2 need and HTN overnight). Pt was also placed on 9L NC overnight, titrated her back down to 3L NC today while at bedside, pt satting 92% with a great pleth. Pt also appears to be a mouth breather when sleeping as I witnessed. Pt requesting a nicotine patch today, she usually smokes 2 PPD. 11/17: Pt resting in bed, friend at the bedside. Pt does report still feeling SOB but congestion is better. Pt continues to have decreased appetite, encouraged her to keep eating. Ordering chocolate ensure today as it is pt preference. Pulm saw pt this AM, plan below. 11/18: PULM at the bedside when I entered. Pt is c/o of anxiety, will be getting her BuSpar soon; not actively appearing anxious outwardly. Pt breathing effort seems to be similar as yesterday, pt reports breathing status same, no worse but no better than yesterday. Review of Systems Review of Systems: 12 systems were reviewed and are negativ e except for as per HPI. Exam Narrative: Const: General: comfortable and no acute distress Other: Thin, chronically ill-appearing female lying in bed. HENMT: Face/Nose/Sinus: Normal nares present Other: tacky mucus membranes Eyes: General: appearance normal, both eyes and all related structures Sclera: sclerae normal Neck: Neck: supple and no JVD Carotids: no bruits Resp: Other: Currently on 4 L nasal cannula. Respirations are nonlabored and she is speaking in full sentences. Lung sounds are significantly diminished throughout with scattered rales/coarse LS. No wheezing. Cardio: Rate: regular rate Rhythm: regular rhythm GI: Inspection: non-distended Auscultation: normal bowel sounds Skin: General skin exam: normal color and no rashes or lesions noted Wounds: no wounds Neuro: Speech: normal speech Motor exam (neuro): Normal motor muscle tone present throughout Sensory Exam: normal sensation Extrem: General: normal to inspection, no edema and no pedal edema Psych: Mental Status: mental status grossly normal Affect: normal affect Objective Data Vital Signs Vital Signs: Vital Signs - 24 hr 11/17/24 08:29 11/17/24 08:31 11/17/24 08:31 Temperature 97.6 F Pulse Rate 85 85 85 Respiratory Rate 24 H 24 H Blood Pressure 178/60 H Pulse Oximetry 89 L 90 Oxygen Delivery High Flow Nasal Cannula Oxygen Flow Rate 5 Fraction of Inspired Oxygen 11/17/24 14:00 11/17/24 14:45 11/17/24 14:56 Temperature 97.6 F Pulse Rate 85 83 85 Respiratory Rate 19 20 20 Blood Pressure 153/58 H Pulse Oximetry 91 Oxygen Delivery Oxygen Flow Rate Fraction of Inspired Oxygen 11/17/24 20:00 11/17/24 20:20 11/17/24 20:30 Temperature 97.7 F Pulse Rate 85 72 87 Respiratory Rate 20 22 H 20 Blood Pressure 144/54 H Pulse Oximetry 91 93 92 Oxygen Delivery High Flow Nasal Cannula High Flow Nasal Cannula Oxygen Flow Rate 3.5 3.5 Fraction of Inspired Oxygen 32 11/17/24 20:30 11/18/24 04:26 11/18/24 04:32 Temperature 97.7 F Pulse Rate 76 77 76 Respiratory Rate 20 22 H 20 Blood Pressure 134/48 L Pulse Oximetry 90 Oxygen Delivery Oxygen Flow Rate Fraction of Inspired Oxygen 11/18/24 04:48 11/18/24 04:52 11/18/24 07:53 Temperature Pulse Rate 74 74 Respiratory Rate 20 20 Blood Pressure Pulse Oximetry 91 92 Oxygen Delivery High Flow Nasal Cannula High Flow Nasal Cannula Oxygen Flow Rate 4 6 Fraction of Inspired Oxygen 11/18/24 07:53 11/18/24 08:14 Temperature Pulse Rate 80 78 Respiratory Rate 24 H 20 Blood Pressure Pulse Oximetry Oxygen Delivery Oxygen Flow Rate Fraction of Inspired Oxygen Intake/Output Intake/Output: Intake & Output 11/15/24 11/16/24 11/17/24 11/18/24 23:59 23:59 23:59 23:59 Intake Total 109 670 1660 300 Output Total 939 868 6757 150 Balance -60 190 -966 150 Meds/Results Medications: Active Medications Generic Name Dose Route Start Last Admin Trade Name Freq PRN Reason Stop Dose Admin Acetaminophen 650 mg 11/13/24 22:45 11/18/24 05:20 Acetaminophen 325 Mg Tablet PO 650 mg Q6H PRN Administration Mild Pain (1-3) or Fever Acetylcysteine 200 mg 11/14/24 20:00 11/18/24 07:50 Acetylcysteine 20% Inhal Soln 800 Mg/4 Ml Vial INHALATION 200 mg Q6HRT LUCY Administration Albuterol/Ipratropium 3 ml 11/14/24 08:00 11/18/24 07:50 Ipratropium 0.5 Mg/Albuterol Sulfate 2.5 Mg Ampul.Neb 3 Ml INHALATION 3 ml Q6HRT LUCY Administration Atorvastatin Calcium 40 mg 11/14/24 09:00 11/17/24 08:32 Atorvastatin 40 Mg Tablet PO 40 mg DAILY LUCY Administration Budesonide 0.5 mg 11/14/24 20:00 11/18/24 07:50 Budesonide Respule Neb 0.5 Mg/2 Ml Amp INHALATION 0.5 mg Q12HRT LUCY Administration Buspirone HCl 10 mg 11/16/24 17:08 11/17/24 21:17 Buspirone Hcl 10 Mg Tablet PO 10 mg Q12HR PRN Administration Anxiety Carvedilol 12.5 mg 11/15/24 21:00 11/17/24 21:09 Carvedilol 12.5 Mg Tablet PO 12.5 mg Q12HR LUCY Administration Desmopressin Acetate 0.2 mg 11/14/24 21:00 11/17/24 21:08 Desmopressin Acetate 0.1 Mg Tablet PO 0.2 mg HS LUCY Administration Doxycycline Hyclate 100 mg 11/14/24 09:00 11/17/24 21:08 Doxycycline Hyclate 100 Mg Tablet PO 100 mg Q12HR LUCY Administration Escitalopram Oxalate 10 mg 11/14/24 21:00 11/17/24 21:08 Escitalopram Oxalate 10 Mg Tablet PO 10 mg HS LUCY Administration Furosemide 20 mg 11/14/24 09:00 11/17/24 08:32 Furosemide 20 Mg Tablet PO 20 mg QAM LUCY Administration Guaifenesin 1,200 mg 11/14/24 09:00 11/17/24 21:08 Guaifenesin 12 Hr 600 Mg Tabcr PO 1,200 mg Q12HR LUCY Administration Hydralazine HCl 10 mg 11/15/24 14:58 11/15/24 20:27 Hydralazine Hcl 20 Mg/Ml Vial IV PUSH 10 mg Q8H PRN Administration Hypertension systolic >180 Cefepime HCl 2 gm in 50 mls @ 100 mls/hr 11/14/24 03:00 11/18/24 04:19 Maxipime 2 Gm/Ns 50 Ml IVPB Infused Q12H LUCY Infusion Metronidazole 500 mg in 100 mls @ 100 mls/hr 11/14/24 04:00 11/18/24 04:55 Flagyl 500 Mg/Iso Soln 100 Ml IVPB Infused Q8H LUCY Infusion Lisinopril 40 mg 11/14/24 09:00 11/17/24 08:32 Lisinopril 20 Mg Tablet PO 40 mg QAM LUCY Administration Melatonin 5 mg 11/14/24 21:00 11/17/24 21:08 Melatonin 5 Mg Tablet PO 5 mg QHS LUCY Administration Methylprednisolone Sodium Succinate 40 mg 11/17/24 08:50 11/18/24 05:18 Methylprednisolone Sod Succ 40 Mg Vial IV PUSH 40 mg Q6HR LUCY Administration Nicotine 1 patch 11/16/24 10:00 11/17/24 09:05 Nicotine (*Pbkc) 21 Mg Patch TRANSDERM Not Given DAILY [facility] Radiology Results: ITS Impressions Chest CTA 11/13/24 21:07 IMPRESSION: 1. No pulmonary embolism. 2. Mass measuring 4.1 x 2.9 cm in the right lower lobe. Further evaluation advised. Smaller nodule is seen adjacent to this mass in the right lower lobe area. 3. interstitial and alveolar opacification in the right middle , lower and upper lobes and left lower lobe suggestive of pneumonitis. 4. Extensive emphysematous changes seen bilaterally. 5. Right hilar and mediastinal lymphadenopathy. 6. The proximal abdominal aorta measures 3 cm. Chest X-Ray 11/15/24 21:22 IMPRESSION: Severe panlobular emphysematous disease without focal infiltrate or effusion. Redemonstration of a right lower lobe asymmetry by secondary signs on frontal view. Labs Labs: Laboratory Results - last 24 hr 11/18/24 04:55 WBC 10.3 H RBC 4.11 L Hgb 12.5 Hct 39.6 MCV 96.4 MCH 30.4 MCHC 31.6 L RDW 15.3 H Plt Count 224 MPV 9.6 Sodium 138 Potassium 3.8 Chloride 108 H Carbon Dioxide 15 L Anion Gap 15 H BUN 28 H D Creatinine 0.84 Estim Creat Clear Calc 45 Estimated GFR > 60 Glucose 133 H Calcium 7.6 L Total Bilirubin 0.6 AST 34 ALT 23 Alkaline Phosphatase 94 NT-Pro-B Natriuret Pep 3720 H Total Protein 6.3 Albumin 3.2 L Quality VTE Prophylaxis VTE prophylaxis: mechanical ordered
[2024-11-18] MEDS: guaiFENesin 12 HR 600 MG TABCR 1200 MG PO ×2 (08:27→20:04)
[2024-11-18] MEDS: DOXYCYCLINE HYCLATE 100 MG TABLET PO ×2 (08:27→20:04)
[2024-11-18] MEDS: FUROSEMIDE 20 MG TABLET PO (08:27)
[2024-11-18] MEDS: carvediloL 12.5 MG TABLET PO ×2 (08:28→20:05)
[2024-11-18] MEDS: lisinopriL 20 MG TABLET 40 MG PO (08:28)
[2024-11-18] MEDS: ATORVASTATIN 40 MG TABLET PO (08:28)
--- NOTE | 2024-11-18 09:49 | P.PNPL_ITS ---
Progress Note: A&P Assessment and Plan (1) Postobstructive pneumonia: Code(s): J18.9 - Pneumonia, unspecified organism Status: Acute Assessment and Plan: Patient with worsening respiratory symptoms as an outpatient was treated with a Z-Gray and completed this on 11/10/2024 lung with steroids and felt no better. She is afebrile. She does have a leukocytosis with an elevated CRP at 15.1. CT scan shows right lower lobe consolidations with some infiltrate. COVID, influenza, RSV RT PCR assay negative. Blood cultures are pending. MRSA nasal swab negative. 11/14/24: Plan: I will treat for pneumonia including postobstructive pneumonia as she may have lung cancer in the right lower lobe. Sputum culture ordered. Urine Legionella, urine pneumococcal and serum mycoplasma IgM already sent. I will send a respiratory pathogen panel. I will send a procalcitonin on 11/15/2024. I will repeat a CRP on 11/15/2024. Patient was initiated on azithromycin, meropenem and vancomycin. This was changed to vancomycin, cefepime, Flagyl and doxycycline All started on 11/14/2024 when she was admitted to the floor. MRSA nasal swab negative and I will discontinue vancomycin. Inpatient Pulmonary Services will resume on 11/17/2024, call with questions. 11/17/24: Overall the patient tells me she is the same as yesterday but worse since 11/13/2024. She has rest shortness of breath and dyspnea with any ac tivity. She has a mostly dry cough with minimal phlegm production no hemoptysis. Patient tells me she has difficulty expectorating. She feels hot and cold. She feels as if she has wheezes. She is afebrile. White blood cell count 13.3, creatinine 0.7, BNP has increased from 1720 on 11/12 2 4050 today. CRP has increased from 4.9 on 11/15 to 7.8 today. Procalcitonin 0.2. Plan: Continue cefepime, doxycycline and Flagyl all day 4. CRP is decreased from admission but increased over the last few days. Urine Legionella, urine pneumococcal, serum mycoplasma IgM and respiratory pathogen panel pending. 11/18/24: patient had an episode of acute shortness of breath in the middle the night that woke her from her sleep. She had declined her to a.m. treatment and woke up at 4:00 a.m. acutely short of breath that responded to a stat DuoNeb. Overall the patient tells me she is breathing worse than yesterday. She has no rest shortness of breath but shortness of breath whenever she moves. She has minimal phlegm production today. When I enter the room she was on 6 L 97% And I decreased her to 4 L nasal cannula her saturations were 93%. White blood cell count 10.3, creatinine 0.84, BNP mildly decreased to 3720. Yesterday she diuresed 966 mL and cumulative she is positive 104 mL since admission. Her weight today is 55.4. Plan: Continue cefepime, doxycycline and Flagyl all day 5 Of 7. will change Flagyl from IV to p.o. today. Urine Legionella, urine pneumococcal, serum mycoplasma IgM and respiratory pathogen panel pending. Discussed with Lucia Howard, will follow with you. (2) Chronic obstructive pulmonary disease: Code(s): J44.9 - Chronic obstructive pulmonary disease, unspecified Status: Acute Assessment and Plan: Regarding her COPD, 118 hundred eighteen pack year tobacco use currently smoking 2 packs per day. She was diagnosed approximately 10 years ago. She does not remember having PFTs. I have no PFTs. For CT in our system from 06/11/[address] scan from 11/13/2024 demonstrates severe panlobular emphysema all lung hall. Patient tells me 10 years ago she had a collapsed lung requiring a chest tube and hospitalization and recovered. One year ago she could walk 2 blocks. Three months ago which is the last time she felt normal she could walk 1 block and was limited by leg pain. Patient had a fall and was admitted to [facility] approximately 6 months ago and at that time she was prescribed oxygen. The oxygen was delivered to her house but she did not know how to use it and returned it. At home she measures her pulse oximetry sitting on room air and this ranges from 81 to 91%. 11/13/2024: ABG on 2 L 7.46/34/70. started on trelegy 200 a few weeks ago and says that this does help her. 11/13/2024: Patient returned to the emergency room with worsening shortness of breath, cough and congestion. Room air saturations were 81%. She had rales and rhonchi. White blood cell count 14.5, eosinophils 0.7%. Creatinine 0.89. CRP 15.1. COVID, influenza and RSV RT PCR assay negative. MRSA nasal swab negative. ABG on 2 L 7.. Patient was initiated on azithromycin, meropenem and vancomycin. This was changed to vancomycin, cefepime, Flagyl and doxycycline when she was admitted to the floor. 11/14/2024: Patient tells me she feels the same as she did yesterday. She has shortness of breath at rest and with activity and has not been out of bed. She had previously been on 3 L nasal cannula but the nurse told me her saturations went to 77% about 3 minutes before I entered. She was placed on 5 L and her saturations were 91%. She complains of being tired, no chest pain no hemoptysis. she says the phlegm is increased over the last 3 months and sometimes he gets stuck in her throat. Patient may or may not be having a COPD exacerbation. Agree with treatment for pneumonia including postobstructive pneumonia while holding off on systemic steroids. Plan: I will place the patient on DuoNebs q.6 hours, I will add nebulized budesonide 500 mcg b.i.d.. This represents maximal bronchodilators and I will discontinue trilogy. Patient is having difficulty expectorating. Continue guaifenesin 1200 mg p.o. b.i.d., Cornet flutter valve q.2 hours while awake, I will add Mucomyst nebulizer 200 mg q.6 hours. blood cultures are pending. Urine Legionella, urine pneumococcal and serum mycoplasma IgM already sent. I will send a respiratory pathogen panel. 11/17/24: Patient with worsening SOB over the last few days, inability to clear secretions. No wheezing on exam. Plan: I will add Solu-Medrol 40 mg IV q.6 hours for worsening symptoms. I will increase her DuoNebs to q.4 hours, Continue guaifenesin 1200 mg p.o. b.i.d., Cornet flutter valve q.2 hours while awake, she notices minimal change with Mucomyst nebulizer but will continue these. I will try Vest vibratory therapy today. 11/17/24: Patient with worsening breathing the last few days, inability to clear secretions. No wheezing on exam. Minimal secretion clearance with the vest but she wishes to continue. Plan: continue Solu-Medrol 40 q.6, day 2, DuoNebs q.4 hours, guaifenesin 1200 b.i.d., Cornet flutter valve Q 2 hours while awake, Mucomyst q.6 hours and vest therapy. (3) Acute respiratory failure with hypoxia: Code(s): J96.01 - Acute respiratory failure with hypoxia Status: Acute Assessment and Plan: The patient was discharged from [facility] approximately 6 months ago after a fall and was prescribed oxygen. The oxygen was delivered to her house but she did not know how to use it and returned it. At home she measures her pulse oximetry sitting on room air and this ranges from 81 to 91%. ABG on 2 L 7.46/34/70. There is no evidence of hypercarbic respiratory failure. Plan: Goal saturation 90-94%, currently the patient is on 3 L with saturations 91%. Adjust accordingly. 11/17/24: Patient was on 4 L nasal cannula when I enter the room and her saturations were 89%. I increased her to 5 L nasal cannula and her saturations were 90%. Plan: Goal saturation 90-94%. Currently the patient is on 5 L nasal cannula, adjust accordingly. 11/18/24: Currently on 4 L nasal cannula with saturations 93%. Plan: Goal saturation 90-94% and adjust oxygen as needed. (4) Malignant neoplasm of lower lobe, right bronchus or lung: Code(s): C34.31 - Malignant neoplasm of lower lobe, right bronchus or lung Status: Acute Assessment and Plan: Patient is followed by Oncology, Dr. Palomo, last note I have is from 10/24/2024. Patient had a CT-guided biopsy of a right lung mass on 07/21/2022 with scant atypical cells. In the comment it says morphologically compatible with carcinoma but is also morphologically compatible with reactive tissue. Completed SBRT 10/09/2022. CT scan 10/20/2024 showed a 2.1 cm right lower lobe nodule consolidation possibility of neoplasm. The mass has increased in size from the previous CT when it was 1.[address]-guided biopsy of the mass ordered and based on the pathology we will decide about PET scan. 11/12/2024: Patient presented to the hospital for outpatient CT-guided lung biopsy with low saturations and was sent to the emergency room. CT-guided Biopsy cannot be performed at [facility] as she requires oxygen. 11/13/2024: CT scan with 4.1 x 2.9 cm right lower lobe mass abutting the pleura and 1.4 cm right lower lobe nodule abutting the pleura. Bilateral hilar lymphadenopathy. 11/14/2024: Plan: Bronchoscopic biopsy at [facility] is not a consideration given the very low yield of the procedure. If tissue diagnosis is needed per oncology the patient will need to be referred to a higher level of care facility for CT-guided biopsy or consultation with interventional community health nursing director for possible bronchoscopy with EBUS sampling of the hilar lymph nodes. I discussed this with the patient and currently the patient is refusing referral to a [facility]. Consider discussing with her oncologist, Dr. Palomo. 11/17/24: Dr. Palomo was made aware by hospitalist team that the patient was unable to receive her CT guided biopsy and that she in the hospital with hypoxemic respiratory failure. He wished the patient to follow-up with him as an outpatient so that a plan could be made regarding further workup of her increasing right lower lobe mass. Subjective Date/time seen: 11/18/24 09:49 Interval history: 11/14/2024: This is a new pulmonary consult for lung biopsy. 73-year-old with a history of hypertension, hyperlipidemia, GERD, Subclavian artery stenosis status post stent, renal artery stenosis, Peripheral artery disease status post right carotid endarterectomy 1995, left carotid endarterectomy .COPD, radiographic lung cancer status post XRT. Regarding her COPD she was diagnosed approximately 10 years ago. She does not remember having PFTs. patient tells me 10 years ago she had a collapsed lung requiring a chest tube and hospitalization and recovered.One year ago she could walk 2 blocks. Three months ago which is the last time she felt normal she could walk 1 block and was limited by leg pain. Patient had a fall and was admitted to [facility] approximately 6 months ago and at that time she was prescribed oxygen. The oxygen was delivered to her house but she did not know how to use it and returned it. At home she measures her pulse oximetry sitting on room air and this ranges from 81 to 90 1%. Patient smoked tobacco from age 14 to current at 2 packs per day for 118 pack years, patient was exposed to secondhand smoke from both of her parents. 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 Patient is followed by Oncology, Dr. Palomo, last note I have is from 10/24/2024. Patient had a CT-guided biopsy of a right lung mass on 07/21/2022 with scant atypical cells. In the comment it says morphologically compatible with carcinoma but is also morphologically compatible with reactive tissue. Completed SBRT 10/09/2022. CT scan 10/20/2024 showed a 2.1 cm right lower lobe nodule consolidation possibility of neoplasm. The mass has increased in size from the previous CT when it was 1.[address]-guided biopsy of the mass ordered and based on the pathology we will decide about PET scan. 11/05/2024: PCP office visit note for 1 week of cough and congestion. Room air saturations were listed as 75%. She had rhonchi and wheezes and was prescribed a Z-Gray and steroids. Patient took these medicines but felt no improvement. 11/12/2024: Patient presented to the hospital for outpatient CT-guided lung biopsy with low saturations and was sent to the emergency room. She had a white count of 13.4, creatinine 0.85, BNP 1720 and required 2 L nasal cannula for saturation 93%. Patient left AMA. 11/13/2024: Patient returned to the emergency room with worsening shortness of breath, cough and congestion. Room air saturations were 81%. She had rales and rhonchi. White blood cell count 14.5, eosinophils 0.7%. Creatinine 0.89. CRP 15.1. COVID, influenza and RSV RT PCR assay negative. MRSA nasal swab negative. ABG on 2 L 7.. Patient was initiated on azithromycin, meropenem and vancomycin. This was changed to vancomycin, cefepime, Flagyl and doxycycline when she was admitted to the floor. 11/13/2024: Patient tells me she feels the same as she did yesterday. She has shortness of breath at rest and with activity and has not been out of bed. She had previously been on 3 L nasal cannula but the nurse told me her saturations went to 77% about 3 minutes before I entered. She was placed on 5 L and her saturations were 91%. She complains of being tired, no chest pain no hemoptysis. she says the phlegm is increased over the last 3 months and sometimes he gets stuck in her throat. 11/17/24: Overall the patient tells me she is the same as yesterday but worse since 11/13/2024. She has rest shortness of breath and dyspnea with any activity. She has a mostly dry cough with minimal phlegm production no hemoptysis. Patient tells me she has difficulty expectorating. She feels hot and cold. She feels as if she has wheezes. She is afebrile. White blood cell count 13.3, creatinine 0.7, BNP has increased from 1720 on 11/12 2 4050 today. CRP has increased from 4.9 on 11/15 to 7.8 today. Procalcitonin 0.2. Solu- Medrol 40 q.6 started. 11/18/24: patient had an episode of acute shortness of breath in the middle the night that woke her from her sleep. She had declined her to a.m. treatment and woke up at 4:00 a.m. acutely short of breath that responded to a stat DuoNeb. Overall the patient tells me she is breathing worse than yesterday. She has no rest shortness of breath but shortness of breath whenever she moves. She has minimal phlegm production today. When I enter the room she was on 6 L 97% And I decreased her to 4 L nasal cannula her saturations were 93%. White blood cell count 10.3, creatinine 0.84, BNP mildly decreased to 3720. Yesterday she diuresed 966 mL and cumulative she is positive 104 mL since admission. Her weight today is 55.4. DATA: 11/15/24: Summary 1. Complete two-dimensional, color flow and Doppler transthoracic echocardiogram is performed. 2. Left ventricular chamber dimension is normal. 3. Left ventricular systolic function is normal, estimated at 60-65. 4. There is mild concentric increased left ventricular wall thickness. 5. The left ventricular diastolic function is grade I diastolic dysfunction. 6. E/e' 9 is minimally elevated. 7. Left atrial chamber dimension is moderately enlarged. 8. There is mild aortic valve sclerosis. 9. The mitral valve has a mildly calcified annulus. 10. There is trace mitral valve regurgitation. Right Ventricle Right ventricular chamber dimension is normal. Right ventricular systolic function is normal. Right Atria Right atrial chamber dimension is normal. Tricuspid Valve There is trace tricuspid valve regurgitation. RVSP is not calculated due to an inadequate TR jet. 11/13/2024: CTA chest PE protocol History: 73 years Female with . shortness of breath . Comparison: October 20, 2024 Findings: PULMONARY ARTERIES: No pulmonary embolus. VISUALIZED THORACIC INLET: Normal. MEDIASTINUM: Aorta/coronary arteries: Mild atheromatous disease. Heart/other: The heart is not enlarged. Lymph nodes: Prevascular lymphadenopathy is seen with the largest measures 1.6 cm. Bilateral hilar lymphadenopathy more in the right side. Subcarinal calcified lymph notes. Calcified lymph node in the left hilum. LUNGS: Emphysematous changes of the lungs. A mass is seen in the right lower lobe measuring 4.1 x 2.9 cm. Further evaluation advised. Smaller nodule is seen medially in the right lower lobe measuring 1.4 cm. Minimal interstitial opacification is seen in the right middle lobe and right upper lobe. Interstitial opacification also seen around the mass in the right lower lobe. Minimal interstitial opacification the left lung base. Right pleural effusion. No pulmonary nodules . No pneumothorax. VISUALIZED UPPER ABDOMEN: Proximal abdominal aorta measures 3 cm. Stent is seen in the left renal artery. Status post cholecystectomy. Slightly prominent pancreatic duct. Prominent CBD measuring 1.1 cm.. Otherwise, the visualized upper abdomen is normal. MUSCULOSKELETAL: Soft tissues: The superficial soft tissues are normal. Bones: Age appropriate degenerative changes of the spine. Increased kyphosis. Osteopenia of the bones. IMPRESSION: 1. No pulmonary embolism. 2. Mass measuring 4.1 x 2.9 cm in the right lower lobe. Further evaluation advised. Smaller nodule is seen adjacent to this mass in the right lower lobe area. 3. interstitial and alveolar opacification in the right middle , lower and upper lobes and left lower lobe suggestive of pneumonitis. 4. Extensive emphysematous changes seen bilaterally. 5. Right hilar and mediastinal lymphadenopathy. 6. The proximal abdominal aorta measures 3 cm. 07/10/2024: EXAMINATION: PET skull to mid thigh DATE: 07/10/2024 12:18 INDICATION: Malignant neoplasm of lung. TECHNIQUE: Blood glucose level was 93 mg/dL. 10.966 mCi of 18-fluorodeoxyglucose (18-FDG) was administered i.v. Low dose computed tomography (CT) images were acquired from the base of the brain to the proximal thighs for attenuation correction and anatomic localization. Automated exposure control was employed. Dose-length product (DLP) was 805 mGy-cm. Positron emission tomography (PET) images were acquired in the same distribution. COMPARISON: PET/CT 06/01/2022, chest CT 06/18/2024, 05/07/23 FINDINGS: Head/neck: There are likely changes of ocular lens replacement surgeries. There are scattered areas of low attenuation in the cerebral white matter, likely chronic small vessel ischemic disease. 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 There are no pathologically enlarged lymph nodes. Chest: There is a stent in proximal left subclavian artery. There is severe emphysema. A calcified left lung nodule and calcified left hilar and mediastinal lymph nodes are consistent with old granulomatous disease. There are airspace opacities in the lower lobes, right worse than left, with increased activity. There is increased activity in normal-sized and borderline-enlarged right hilar and mediastinal lymph nodes. No pleural effusion. The heart size is normal. There are coronary artery calcifications. No pericardial effusion. Abdomen/pelvis/proximal thighs: The liver is normal. There are changes of cholecystectomy. Calcifications in the spleen are consistent with old granulomatous disease. The pancreas, adrenal glands, and kidneys are normal. There are stents in the left bilateral common iliac arteries and left external iliac artery. There are no dilated loops of bowel. 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 There is a stent in left renal artery. There are no pathologically enlarged lymph nodes. There is no free intraperitoneal fluid. There is no osseous malignancy. There is subcutaneous old fat necrosis in right buttock. IMPRESSION: 1. Airspace opacities with increased activity in the lower lobes, right worse than left, consistent with radiation pneumonitis. 2. Severe emphysema. 3. Increased activity in normal-sized and borderline-enlarged right hilar and mediastinal lymph nodes, which may be reactive or metastatic disease. 06/18/2024: EXAMINATION: CT diagnostic chest w con INDICATION: C34.31 - Malignant neoplasm of lower lobe, right bronchus... COMPARISON: 02/22/2024 and 09/11/2022 FINDINGS: Severe emphysema with biapical pleural-parenchymal scarring. Calcified nodule at the left apex along with calcified left hilar and mediastinal lymph nodes consistent with old granulomatous disease. There is septal line thickening bilaterally basilar lower lobes, right middle lobe and lingula. Interval increase in size of a high attenuation potentially enhancing 1.7 x 1.4 cm s piculated nodule in the superior segment of the right lower lobe which measured approximately 1.2 x 1.1 cm on 12/13/2023. No significant interval change in a more caudal and lower density peripheral bandlike region of consolidation extending approximately 6 cm medial laterally measuring up to 1.5 cm in thickness likely related to changes of chronic radiation pneumonitis. No pleural effusion. Heart size is normal. Atherosclerotic coronary artery calcific location. No pericardial effusion. Thoracic aorta is normal in caliber with no dissection. There is stenting at the origin of the left subclavian artery. No significant change since 09/11/2022 in mild right hilar lymphadenopathy which favors reactive or metastatic lymph nodes. No other pathologically enlarged thoracic lymphadenopathy. A few calcified splenic granulomata. Mild to moderate thoracic spondylosis with bridging osteophytes at multiple levels consistent with diffuse idiopathic skeletal hyperostosis (DISH). IMPRESSION: 1. Enlargement of a now 1.7 x 1.4 cm higher attenuation, likely enhancing spiculated nodule in the superior segment of the right lower lobe suspicious for progression of primary lung cancer. 2. No interval change in a more caudal peripheral band of consolidation in the right lower lobe likely related to chronic radiation fibrosis for reported prior treatment of an earlier mildly FDG avid nodule at this location suspicious for lung cancer. 3. Severe emphysema. 4. Mild right hilar lymphadenopathy unchanged since 09/11/2022 which in the absence of interval treatment would favor reactive over metastatic lym phadenopathy. 11/08/2023: Echo Summary 1. Left ventricular chamber dimension is normal. 2. Left ventricular systolic function is normal, estimated at 65-70%. 3. The left ventricular diastolic function is grade I diastolic dysfunction. 4. Global longitudinal strain is abnormal at -15 %. 5. Right ventricular systolic function is normal. 6. Left atrial chamber dimension is mildly enlarged. 7. There is mild tricuspid valve regurgitation. 8. There is mild pulmonic regurgitation. Left Ventricle Left ventricular chamber dimension is normal. Left ventricular systolic function is normal, estimated at 65-70%. There is no increased left ventricular wall thickness. The left ventricular diastolic function is grade I diastolic dysfunction. Global longitudinal strain is abnormal at -15 %. Right Ventricle Right ventricular chamber dimension is normal. Right ventricular systolic function is normal. Left Atria Left atrial chamber dimension is mildly enlarged. Right Atria Right atrial chamber dimension is normal. Atrial Septum Intact interatrial septum visualized by color flow imaging. Review of Systems Constitutional: Constitutional: Reports no additional constitutional complaints Eyes: Eyes: Reports no additional eye complaints ENT: Reports system reviewed and no additional complaints, except as documented Cardiovascular: Cardiovascular: Reports no additional cardiovascular complaints Respiratory: Respiratory: Reports no additional respiratory complaints Gastrointestinal: Gastrointestinal: Reports no additional gastrointestinal complaints Musculoskeletal: Musculoskeletal: Reports no additional musculoskeletal complaints Neurologic: Reports system reviewed and no additional complaints, except as documented Psychiatric: Psychiatric: Reports no additional psychiatric complaints Endocrine: Endocrine: Reports no additional endocrine complaints Hematologic/Lymphatic: Hematologic/Lymphatic: Reports no additional hematologic/lymphatic complaints Allergic/Immunologic: Allergic/Immunologic: Reports no additional allergic/immunologic complaints Exam Const: General: cooperative and comfortable Orientation/consciousness: oriented to person, oriented to place and oriented to time Other: Ill-appearing HENMT: Head: normal to inspection Ears: hearing grossly normal bilaterally Eyes: General: appearance normal, both eyes and all related structures Neck: Neck: normal visual inspection Chest: Chest palpation & inspection: normal inspection of the chest Resp: Effort & Inspection: normal respiratory effort and able to speak in complete sentences Auscultation: no crackles, no rales, no rhonchi, no wheezes and lung sounds not diminished Other: less crackles throughout with no wheezes. no rhonchi from secretions today. Cardio: Jugular venous distension: no JVD GI: Inspection: normal to inspection Skin: General skin exam: normal color Neuro: General: oriented to person, oriented to place and oriented to time Extrem: General: normal to inspection Psych: Appearance: grossly normal Objective Data Vital Signs Vital Signs: Vital Signs - 24 hr 11/17/24 14:00 11/17/24 14:45 11/17/24 14:56 Temperature 36.4 C Pulse Rate 85 83 85 Respiratory Rate 19 20 20 Blood Pressure 153/58 H Pulse Oximetry 91 Oxygen Delivery Oxygen Flow Rate Fraction of Inspired Oxygen 11/17/24 20:00 11/17/24 20:20 11/17/24 20:30 Temperature 36.5 C Pulse Rate 85 72 87 Respiratory Rate 20 22 H 20 Blood Pressure 144/54 H Pulse Oximetry 91 93 92 Oxygen Delivery High Flow Nasal Cannula High Flow Nasal Cannula Oxygen Flow Rate 3.5 3.5 Fraction of Inspired Oxygen 32 11/17/24 20:30 11/18/24 04:26 11/18/24 04:32 Temperature 36.5 C Pulse Rate 76 77 76 Respiratory Rate 20 22 H 20 Blood Pressure 134/48 L Pulse Oximetry 90 Oxygen Delivery Oxygen Flow Rate Fraction of Inspired Oxygen 11/18/24 04:48 11/18/24 04:52 11/18/24 07:53 Temperature Pulse Rate 74 74 Respiratory Rate 20 20 Blood Pressure Pulse Oximetry 91 92 Oxygen Delivery High Flow Nasal Cannula High Flow Nasal Cannula Oxygen Flow Rate 4 6 Fraction of Inspired Oxygen 11/18/24 07:53 11/18/24 08:14 11/18/24 08:28 Temperature Pulse Rate 80 78 76 Respiratory Rate 24 H 20 Blood Pressure Pulse Oximetry Oxygen Delivery Oxygen Flow Rate Fraction of Inspired Oxygen 11/18/24 08:49 Temperature Pulse Rate Respiratory Rate Blood Pressure Pulse Oximetry 95 Oxygen Delivery Oxygen Flow Rate Fraction of Inspired Oxygen Intake/Output Intake/Output: Intake & Output 11/15/24 11/16/24 11/17/24 11/18/24 23:59 23:59 23:59 23:59 Intake Total 363 402 9309 650 Output Total 130 553 9773 150 Balance -60 190 -966 500 Meds/Results Medications: Active Medications Generic Name Dose Route Start Last Admin Trade Name Freq PRN Reason Stop Dose Admin Acetaminophen 650 mg 11/13/24 22:45 11/18/24 05:20 Acetaminophen 325 Mg Tablet PO 650 mg Q6H PRN Administration Mild Pain (1-3) or Fever Acetylcysteine 200 mg 11/14/24 20:00 11/18/24 07:50 Acetylcysteine 20% Inhal Soln 800 Mg/4 Ml Vial INHALATION 200 mg Q6HRT LUCY Administration Albuterol/Ipratropium 3 ml 11/14/24 08:00 11/18/24 07:50 Ipratropium 0.5 Mg/Albuterol Sulfate 2.5 Mg Ampul.Neb 3 Ml INHALATION 3 ml Q6HRT LUCY Administration Atorvastatin Calcium 40 mg 11/14/24 09:00 11/18/24 08:28 Atorvastatin 40 Mg Tablet PO 40 mg DAILY LUCY Administration Budesonide 0.5 mg 11/14/24 20:00 11/18/24 07:50 Budesonide Respule Neb 0.5 Mg/2 Ml Amp INHALATION 0.5 mg Q12HRT LUCY Administration Buspirone HCl 10 mg 11/16/24 17:08 11/17/24 21:17 Buspirone Hcl 10 Mg Tablet PO 10 mg Q12HR PRN Administration Anxiety Carvedilol 12.5 mg 11/15/24 21:00 11/18/24 08:28 Carvedilol 12.5 Mg Tablet PO 12.5 mg Q12HR LUCY Administration Desmopressin Acetate 0.2 mg 11/14/24 21:00 11/17/24 21:08 Desmopressin Acetate 0.1 Mg Tablet PO 0.2 mg HS LUCY Administration Doxycycline Hyclate 100 mg 11/14/24 09:00 11/18/24 08:27 Doxycycline Hyclate 100 Mg Tablet PO 11/20/24 21:01 100 mg Q12HR LUCY Administration Escitalopram Oxalate 10 mg 11/14/24 21:00 11/17/24 21:08 Escitalopram Oxalate 10 Mg Tablet PO 10 mg HS LUCY Administration Furosemide 20 mg 11/14/24 09:00 11/18/24 08:27 Furosemide 20 Mg Tablet PO 20 mg QAM LUCY Administration Guaifenesin 1,200 mg 11/14/24 09:00 11/18/24 08:27 Guaifenesin 12 Hr 600 Mg Tabcr PO 1,200 mg Q12HR LUCY Administration Hydralazine HCl 10 mg 11/15/24 14:58 11/15/24 20:27 Hydralazine Hcl 20 Mg/Ml Vial IV PUSH 10 mg Q8H PRN Administration Hypertension systolic >180 Cefepime HCl 2 gm in 50 mls @ 100 mls/hr 11/14/24 03:00 11/18/24 04:19 Maxipime 2 Gm/Ns 50 Ml IVPB 11/20/24 15:29 Infused Q12H LUCY Infusion Lisinopril 40 mg 11/14/24 09:00 11/18/24 08:28 Lisinopril 20 Mg Tablet PO 40 mg QAM LUCY Administration Melatonin 5 mg 11/14/24 21:00 11/17/24 21:08 Melatonin 5 Mg Tablet PO 5 mg QHS LUCY Administration Methylprednisolone Sodium Succinate 40 mg 11/17/24 08:50 11/18/24 05:18 Methylprednisolone Sod Succ 40 Mg Vial IV PUSH 40 mg Q6HR LUCY Administration Metronidazole 500 mg 11/18/24 14:00 Metronidazole 500 Mg Tablet PO 11/20/24 22:01 Q8HR LUCY Nicotine 1 patch 11/16/24 10:00 11/18/24 08:28 Nicotine (*[facility]) 21 Mg Patch TRANSDERM Not Given DAILY [facility] Radiology Results: ITS Impressions Chest CTA 11/13/24 21:07 IMPRESSION: 1. No pulmonary embolism. 2. Mass measuring 4.1 x 2.9 cm in the right lower lobe. Further evaluation adv ised. Smaller nodule is seen adjacent to this mass in the right lower lobe area. 3. interstitial and alveolar opacification in the right middle , lower and upper lobes and left lower lobe suggestive of pneumonitis. 4. Extensive emphysematous changes seen bilaterally. 5. Right hilar and mediastinal lymphadenopathy. 6. The proximal abdominal aorta measures 3 cm. Chest X-Ray 11/15/24 21:22 IMPRESSION: Severe panlobular emphysematous disease without focal infiltrate or effusion. Redemonstration of a right lower lobe asymmetry by secondary signs on frontal view. Labs Labs: Laboratory Results - last 24 hr 11/18/24 04:55 WBC 10.3 H RBC 4.11 L Hgb 12.5 Hct 39.6 MCV 96.4 MCH 30.4 MCHC 31.6 L RDW 15.3 H Plt Count 224 MPV 9.6 Sodium 138 Potassium 3.8 Chloride 108 H Carbon Dioxide 15 L Anion Gap 15 H BUN 28 H D Creatinine 0.84 Estim Creat Clear Calc 45 Estimated GFR > 60 Glucose 133 H Calcium 7.6 L Total Bilirubin 0.6 AST 34 ALT 23 Alkaline Phosphatase 94 NT-Pro-B Natriuret Pep 3720 H Total Protein 6.3 Albumin 3.2 L
--- NOTE | 2024-11-18 10:56 | PC.NURSE ---
RN entered room and found patient without NC. Applied NC and checked oxygen levels. Patient 02 was at 74. After 2-3 minutes, 02 returned to >92%. RN assessed patient and reinforced need to wear NC at all times.
[2024-11-18] MEDS: FUROSEMIDE INJ 40 MG/4 ML VIAL IV PUSH (11:14)
[2024-11-18] MEDS: metroNIDAZOLE 500 MG TABLET PO ×2 (14:06→20:05)
[2024-11-18] MEDS: busPIRone HCL 10 MG TABLET PO (14:11)
[2024-11-18 15:54] LABS: Adenovirus DNA Not Detected (Not Detected); Chlamydophila pneumoniae Not Detected (Not Detected); Coronavirus 229E Not Detected (Not Detected); Coronavirus HKU1 Not Detected (Not Detected); Coronavirus NL63 Not Detected (Not Detected); Coronavirus OC43 Not Detected (Not Detected); Human Metapneumovirus Not Detected (Not Detected); Human Parainfluenza Virus 1 Not Detected (Not Detected); Human Parainfluenza Virus 2 Not Detected (Not Detected); Human Parainfluenza Virus 3 Not Detected (Not Detected); Human Parainfluenza Virus 4 Not Detected (Not Detected); Human RSV B Not Detected (Not Detected); Influenza A Not Detected (Not Detected); Influenza B Not Detected (Not Detected); Mycoplasma pneumoniae Not Detected (Not Detected); Rhinovirus/Enterovirus Not Detected (Not Detected)
[2024-11-18 17:28] LABS: Legionella pneumophila Ag Ur. NOT DETECTED
[2024-11-18] MEDS: ESCITALOPRAM OXALATE 10 MG TABLET PO (20:05)
[2024-11-18] MEDS: DESMOPRESSIN ACETATE 0.1 MG TABLET 0.2 MG PO (20:06)
[2024-11-18] MEDS: MELATONIN 5 MG TABLET PO (20:06)
[2024-11-19] VITALS (13 sets, daily range): BP systolic 153–175; BP diastolic 55–58; PULSE 59–68; RESP 16–20; TEMP 36.2–36.6; O2SAT 90–93
[2024-11-19] MEDS: methylPREDNISolone SOD SUCC 40 MG VIAL IV PUSH ×2 (01:40→07:00)
[2024-11-19] MEDS: CEFEPIME 2 GM/NS 50 ML 2 GM/50 ML BAG IVPB ×2 (01:40→14:06)
[2024-11-19] MEDS: IPRATROPIUM 0.5 MG/ALBUTEROL SULFATE 2.5 MG AMPUL.NEB 3 ML INHALATION ×4 (02:27→21:08)
[2024-11-19] MEDS: ACETYLCYSTEINE 20% INHAL SOLN 800 MG/4 ML VIAL 200 MG INHALATION ×2 (02:27→08:13)
[2024-11-19 05:11] LABS: Hematocrit 38.1 % (37.0-47.0); Hemoglobin 12.1 g/dL (12.0-15.0); Mean Corpuscular HGB Conc 31.8 g/dl (32-36); Mean Corpuscular Hemoglobin 30.4 pg (26-34); Mean Corpuscular Volume 95.7 fl (80-100); Mean Platelet Volume 9.5 fl (7.4-10.4); Platelet Count Result 218 k/mm3 (150-375); Red Blood Count 3.98 M/mm3 (4.2-5.4); Red Cell Distribution Width 15.4 % (11.5-14.5); White Blood Count 13.3 K/mm3 (4.5-10.0)
[2024-11-19 05:39] LABS: Alanine Aminotransferase 18 U/L (6-35); Albumin Level 3.1 g/dL (3.5-5.1); Alkaline Phosphatase 89 U/L (38-126); Anion Gap 8 mmol/L (4-12); Aspartate Amino Transferase 28 U/L (14-36); Bilirubin,Total 0.6 mg/dL (0.2-1.3); Blood Urea Nitrogen 34 mg/dL (7-17); Calcium 7.6 mg/dL (8.4-10.2); Carbon Dioxide 24 mmol/L (22-30); Chloride 106 mmol/L (98-107); Estimated CRCL calculation 45 ml/min; Estimated Glomerular Filt Rate > 60; Glucose 127 mg/dL (65-110); NT Pro B Type Natriuretic Pept 3680 pg/mL (19.9-100); Potassium 3.6 mmol/L (3.4-5.0); Sodium 138 mmol/L (137-145); Total Protein 6.1 g/dL (6.3-8.2)
[2024-11-19] MEDS: metroNIDAZOLE 500 MG TABLET PO ×3 (07:01→20:15)
[2024-11-19] MEDS: BUDESONIDE RESPULE NEB 0.5 MG/2 ML AMP INHALATION ×2 (08:13→21:08)
[2024-11-19] MEDS: lisinopriL 20 MG TABLET 40 MG PO (08:48)
[2024-11-19] MEDS: busPIRone HCL 10 MG TABLET PO ×2 (08:48→20:18)
[2024-11-19] MEDS: DOXYCYCLINE HYCLATE 100 MG TABLET PO ×2 (08:48→20:14)
[2024-11-19] MEDS: FUROSEMIDE 20 MG TABLET PO (08:49)
[2024-11-19] MEDS: guaiFENesin 12 HR 600 MG TABCR 1200 MG PO ×2 (08:49→20:14)
[2024-11-19] MEDS: carvediloL 12.5 MG TABLET PO ×2 (08:49→20:14)
[2024-11-19] MEDS: ATORVASTATIN 40 MG TABLET PO (08:49)
[2024-11-19 09:14] LABS: Magnesium 2.1 mg/dL (1.6-2.3)
--- NOTE | 2024-11-19 09:26 | P.PNPL_ITS ---
Progress Note: A&P Assessment and Plan (1) Postobstructive pneumonia: Code(s): J18.9 - Pneumonia, unspecified organism Status: Acute Assessment and Plan: Patient with worsening respiratory symptoms as an outpatient was treated with a Z-Gray and completed this on 11/10/2024 lung with steroids and felt no better. She is afebrile. She does have a leukocytosis with an elevated CRP at 15.1. CT scan shows right lower lobe consolidations with some infiltrate. COVID, influenza, RSV RT PCR assay negative. Blood cultures are pending. MRSA nasal swab negative. 11/14/24: Plan: I will treat for pneumonia including postobstructive pneumonia as she may have lung cancer in the right lower lobe. Sputum culture ordered. Urine Legionella, urine pneumococcal and serum mycoplasma IgM already sent. I will send a respiratory pathogen panel. I will send a procalcitonin on 11/15/2024. I will repeat a CRP on 11/15/2024. Patient was initiated on azithromycin, meropenem and vancomycin. This was changed to vancomycin, cefepime, Flagyl and doxycycline All started on 11/14/2024 when she was admitted to the floor. MRSA nasal swab negative and I will discontinue vancomycin. Inpatient Pulmonary Services will resume on 11/17/2024, call with questions. 11/17/24: Overall the patient tells me she is the same as yesterday but worse since 11/13/2024. She has rest shortness of breath and dyspnea with any ac tivity. She has a mostly dry cough with minimal phlegm production no hemoptysis. Patient tells me she has difficulty expectorating. She feels hot and cold. She feels as if she has wheezes. She is afebrile. White blood cell count 13.3, creatinine 0.7, BNP has increased from 1720 on 11/12 2 4050 today. CRP has increased from 4.9 on 11/15 to 7.8 today. Procalcitonin 0.2. Plan: Continue cefepime, doxycycline and Flagyl all day 4. CRP is decreased from admission but increased over the last few days. Urine Legionella, urine pneumococcal, serum mycoplasma IgM and respiratory pathogen panel pending. 11/18/24: patient had an episode of acute shortness of breath in the middle the night that woke her from her sleep. She had declined her to a.m. treatment and woke up at 4:00 a.m. acutely short of breath that responded to a stat DuoNeb. Overall the patient tells me she is breathing worse than yesterday. She has no rest shortness of breath but shortness of breath whenever she moves. She has minimal phlegm production today. When I enter the room she was on 6 L 97% And I decreased her to 4 L nasal cannula her saturations were 93%. White blood cell count 10.3, creatinine 0.84, BNP mildly decreased to 3720. Yesterday she diuresed 966 mL and cumulative she is positive 104 mL since admission. Her weight today is 55.4. Plan: Continue cefepime, doxycycline and Flagyl all day 5 Of 7. will change Flagyl from IV to p.o. today. Urine Legionella, urine pneumococcal, serum mycoplasma IgM and respiratory pathogen panel pending. 11/19/2024: Patient tells me she feels much better today. She says that her breathing is 75% back to her normal. Her cough is improved and her phlegm production has improved and is clear now. She has not been out of bed yet. currently she is on 3 L nasal cannula saturations 90%. She is afebrile. White blood cell count 13.3, creatinine 0.84, BNP 3680. Yesterday she was positive 30 mL, cumulative she is positive 24 mL since admission. Her weight today is 55.2. Plan: Continue cefepime, p.o. doxycycline, p.o. Flagyl all day 6 of 7. Respiratory pathogen panel negative, urine Legionella negative, urine p neumococcal negative, mycoplasma IgM pending. If patient remains clinically stable will consider discharge on 11/20/2024 on these pulmonary medications: Prednisone 40 mg p.o. q.day x3 days. Trelegy 100- 62.5-25 at 1 puff q.day Rescue albuterol 2 puffs q.4 hours p.r.n. shortness of breath or wheezing Guaifenesin 600 mg p.o. b.i.d. p.r.n. congestion. Oxygen at rest and per activity per formal home O2 assessment on day of discharge. Oxygen when she naps or sleeps as guided by overnight oximetry on 3 L on 11/19/2024. Diuretics per hospitalist team. Currently she is on Lasix 20 p.o. q.day Discussed with Ligia Ulrich, will follow with you. (2) Chronic obstructive pulmonary disease: Code(s): J44.9 - Chronic obstructive pulmonary disease, unspecified Status: Acute Assessment and Plan: Regarding her COPD, 118 hundred eighteen pack year tobacco use currently smoking 2 packs per day. She was diagnosed approximately 10 years ago. She does not remember having PFTs. I have no PFTs. For CT in our system from 06/11/[address] scan from 11/13/2024 demonstrates severe panlobular emphysema all lung hall. Patient tells me 10 years ago she had a collapsed lung requiring a chest tube and hospitalization and recovered. One year ago she could walk 2 blocks. Three months ago which is the last time she felt normal she could walk 1 block and was limited by leg pain. Patient had a fall and was admitted to [facility] approximately 6 months ago and at that time she was prescribed oxygen. The oxygen was delivered to her house but she did not know how to use it and returned it. At home she measures her pulse oximetry sitting on room air and this ranges from 81 to 91%. 11/13/2024: ABG on 2 L 7.46/34/70. started on trelegy 200 a few weeks ago and says that this does help her. 11/13/2024: Patient returned to the emergency room with worsening shortness of breath, cough and congestion. Room air saturations were 81%. She had rales and rhonchi. White blood cell count 14.5, eosinophils 0.7%. Creatinine 0.89. CRP 15.1. COVID, influenza and RSV RT PCR assay negative. MRSA nasal swab negative. ABG on 2 L 7.46/34/70. Patient was initiated on azithromycin, meropenem and vancomycin. This was changed to vancomycin, cefepime, Flagyl and doxycycline when she was admitted to the floor. 11/14/2024: Patient tells me she feels the same as she did yesterday. She has shortness of breath at rest and with activity and has not been out of bed. She had previously been on 3 L nasal cannula but the nurse told me her saturations went to 77% about 3 minutes before I entered. She was placed on 5 L and her saturations were 91%. She complains of being tired, no chest pain no hemoptysis. she says the phlegm is increased over the last 3 months and sometimes he gets stuck in her throat. Patient may or may not be having a COPD exacerbation. Agree with treatment for pneumonia including postobstructive pneumonia while holding off on systemic steroids. Plan: I will place the patient on DuoNebs q.6 hours, I will add nebulized budesonide 500 mcg b.i.d.. This represents maximal bronchodilators and I will discontinue trilogy. Patient is having difficulty expectorating. Continue guai fenesin 1200 mg p.o. b.i.d., Cornet flutter valve q.2 hours while awake, I will add Mucomyst nebulizer 200 mg q.6 hours. blood cultures are pending. Urine Legionella, urine pneumococcal and serum mycoplasma IgM already sent. I will send a respiratory pathogen panel. 11/17/24: Patient with worsening SOB over the last few days, inability to clear secretions. No wheezing on exam. Plan: I will add Solu-Medrol 40 mg IV q.6 hours for worsening symptoms. I will increase her DuoNebs to q.6 hours, Continue guaifenesin 1200 mg p.o. b.i.d., Cornet flutter valve q.2 hours while awake, she notices minimal change with Mucomyst nebulizer but will continue these. I will try Vest vibratory therapy today. 11/17/24: Patient with worsening breathing the last few days, inability to clear secretions. No wheezing on exam. Minimal secretion clearance with the vest but she wishes to continue. Plan: continue Solu-Medrol 40 q.6, day 2, DuoNebs q.4 hours, guaifenesin 1200 b.i.d., Cornet flutter valve Q 2 hours while awake, Mucomyst q.6 hours and vest therapy. 11/19/24: She tells me the vest therapy provides her no benefit. She tells me the Mucomyst does not help her expectorate any phlegm. Plan: I will change her Solu-Medrol to 40 mg prednisone p.o. q.day, day 3 steroids. Continue DuoNebs q.6 hours, budesonide b.i.d., guaifenesin 1200 b.i.d.. I will DC Mucomyst and DC the vest therapy. (3) Acute respiratory failure with hypoxia: Code(s): J96.01 - Acute respiratory failure with hypoxia Status: Acute Assessment and Plan: The patient was discharged from [facility] approximately 6 months ago after a fall and was prescribed oxygen. The oxygen was delivered to her house but she did not know how to use it and returned it. At home she measures her pulse oximetry sitting on room air and this ranges from 81 to 91%. ABG on 2 L 7.46/34/70. There is no evidence of hypercarbic respiratory failure. Plan: Goal saturation 90-94%, currently the patient is on 3 L with saturations 91%. Adjust accordingly. 11/17/24: Patient was on 4 L nasal cannula when I enter the room and her saturations were 89%. I increased her to 5 L nasal cannula and her saturations were 90%. Plan: Goal saturation 90-94%. Currently the patient is on 5 L nasal cannula, adjust accordingly. 11/18/24: Currently on 4 L nasal cannula with saturations 93%. Plan: Goal saturation 90-94% and adjust oxygen as needed. 11/19/24: Patient currently on 3 L nasal cannula with saturation 90%. Plan: I will obtain overnight oximetry on 3 L tonight to assess nocturnal oxygen requirements. (4) Malignant neoplasm of lower lobe, right bronchus or lung: Code(s): C34.31 - Malignant neoplasm of lower lobe, right bronchus or lung Status: Acute Assessment and Plan: Patient is followed by Oncology, Dr. Palomo, last note I have is from 10/24/2024. Patient had a CT-guided biopsy of a right lung mass on 07/21/2022 with scant atypical cells. In the comment it says morphologically compatible with carcinoma but is also morphologically compatible with reactive tissue. Completed SBRT 10/09/2022. CT scan 10/20/2024 showed a 2.1 cm right lower lobe nodule consolidation possibility of neoplasm. The mass has increased in size from the previous CT when it was 1.[address]-guided biopsy of the mass ordered and based on the pathology we will decide about PET scan. 11/12/2024: Patient presented to the hospital for outpatient CT-guided lung biopsy with low saturations and was sent to the emergency room. CT-guided Biopsy cannot be performed at [facility] as she requires oxygen. 11/13/2024: CT scan with 4.1 x 2.9 cm right lower lobe mass abutting the pleura and 1.4 cm right lower lobe nodule abutting the pleura. Bilateral hilar lymphadenopathy. 11/14/2024: Plan: Bronchoscopic biopsy at [facility] is not a consideration given the very low yield of the procedure. If tissue diagnosis is needed per oncology the patient will need to be referred to a higher level of care facility for CT-guided biopsy or consultation with interventional pharmacy analyst for possible bronchoscopy with EBUS sampling of the hilar lymph nodes. I discussed this with the patient and currently the patient is refusing referral to a [facility]. Consider discussing with her oncologist, Dr. Palomo. 11/17/24: Dr. Palomo was made aware by hospitalist team that the patient was unable to receive her CT guided biopsy and that she in the hospital with hypoxemic respiratory failure. He wished the patient to follow-up with him as an outpatient so that a plan could be made regarding further workup of her increasing right lower lobe mass. Subjective Date/time seen: 11/19/24 09:26 Interval history: 11/14/2024: This is a new pulmonary consult for lung biopsy. 73-year-old with a history of hypertension, hyperlipidemia, GERD, Subclavian artery stenosis status post stent, renal artery stenosis, Peripheral artery disease status post right carotid endarterectomy 1995, left carotid endarterectomy .COPD, radiographic lung cancer status post XRT. Regarding her COPD she was diagnosed approximately 10 years ago. She does not remember having PFTs. patient tells me 10 years ago she had a collapsed lung requiring a chest tube and hospitalization and recovered.One year ago she could walk 2 blocks. Three months ago which is the last time she felt normal she could walk 1 block and was limited by leg pain. Patient had a fall and was admitted to [facility] approximately 6 months ago and at that time she was prescribed oxygen. The oxygen was delivered to her house but she did not know how to use it and returned it. At home she measures her pulse oximetry sitting on room air and this ranges from 81 to 90 1%. Patient smoked tobacco from age 14 to current at 2 packs per day for 118 pack years, patient was exposed to secondhand smoke from both of her parents. 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 Patient is followed by Oncology, Dr. Palomo, last note I have is from 10/24/2024. Patient had a CT-guided biopsy of a right lung mass on 07/21/2022 with scant atypical cells. In the comment it says morphologically compatible with carcinoma but is also morphologically compatible with reactive tissue. Completed SBRT 10/09/2022. CT scan 10/20/2024 showed a 2.1 cm right lower lobe nodule consolidation possibility of neoplasm. The mass has increased in size from the previous CT when it was 1.[address]-guided biopsy of the mass ordered and based on the pathology we will decide about PET scan. 11/05/2024: PCP office visit note for 1 week of cough and congestion. Room air saturations were listed as 75%. She had rhonchi and wheezes and was prescribed a Z-Gray and steroids. Patient took these medicines but felt no improvement. 11/12/2024: Patient presented to the hospital for outpatient CT-guided lung biopsy with low saturations and was sent to the emergency room. She had a white count of 13.4, creatinine 0.85, BNP 1720 and required 2 L nasal cannula for saturation 93%. Patient left AMA. 11/13/2024: Patient returned to the emergency room with worsening shortness of breath, cough and congestion. Room air saturations were 81%. She had rales and rhonchi. White blood cell count 14.5, eosinophils 0.7%. Creatinine 0.89. CRP 15.1. COVID, influenza and RSV RT PCR assay negative. MRSA nasal swab negative. ABG on 2 L 7.34/70. Patient was initiated on azithromycin, meropenem and vancomycin. This was changed to vancomycin, cefepime, Flagyl and doxycycline when she was admitted to the floor. 11/13/2024: Patient tells me she feels the same as she did yesterday. She has shortness of breath at rest and with activity and has not been out of bed. She had previously been on 3 L nasal cannula but the nurse told me her saturations went to 77% about 3 minutes before I entered. She was placed on 5 L and her saturations were 91%. She complains of being tired, no chest pain no hemop tysis. she says the phlegm is increased over the last 3 months and sometimes he gets stuck in her throat. 11/17/24: Overall the patient tells me she is the same as yesterday but worse since 11/13/2024. She has rest shortness of breath and dyspnea with any activity. She has a mostly dry cough with minimal phlegm production no hemoptysis. Patient tells me she has difficulty expectorating. She feels hot and cold. She feels as if she has wheezes. She is afebrile. White blood cell count 13.3, creatinine 0.7, BNP has increased from 1720 on 11/12 2 4050 today. CRP has increased from 4.9 on 11/15 to 7.8 today. Procalcitonin 0.2. Solu- Medrol 40 q.6 started. 11/18/24: patient had an episode of acute shortness of breath in the middle the night that woke her from her sleep. She had declined her to a.m. treatment and woke up at 4:00 a.m. acutely short of breath that responded to a stat DuoNeb. Overall the patient tells me she is breathing worse than yesterday. She has no rest shortness of breath but shortness of breath whenever she moves. She has minimal phlegm production today. When I enter the room she was on 6 L 97% And I decreased her to 4 L nasal cannula her saturations were 93%. White blood cell count 10.3, creatinine 0.84, BNP mildly decreased to 3720. Yesterday she diuresed 966 mL and cumulative she is positive 104 mL since admission. Her weight today is 55.4. 11/19/2024: Patient tells me she feels much better today. She says that her breathing is 75% back to her normal. Her cough is improved and her phlegm production has improved and is clear now. She has not been out of bed yet. currently she is on 3 L nasal cannula saturations 90%. She is afebrile. White blood cell count 13.3, creatinine 0.84, BNP 3680. Yesterday she was positive 30 mL, cumulative she is positive 24 mL since admission. Her weight today is 55.2. She tells me the vest therapy provides her no benefit. She tells me the Mucomyst does not help her expectorate any phlegm. DATA: 11/15/24: Summary 1. Complete two-dimensional, color flow and Doppler transthoracic echocardiogram is performed. 2. Left ventricular chamber dimension is normal. 3. Left ventricular systolic function is normal, estimated at 60-65. 4. There is mild concentric increased left ventricular wall thickness. 5. The left ventricular diastolic function is grade I diastolic dysfunction. 6. E/e' 9 is minimally elevated. 7. Left atrial chamber dimension is moderately enlarged. 8. There is mild aortic valve sclerosis. 9. The mitral valve has a mildly calcified annulus. 10. There is trace mitral valve regurgitation. Right Ventricle Right ventricular chamber dimension is normal. Right ventricular systolic function is normal. Right Atria Right atrial chamber dimension is normal. Tricuspid Valve There is trace tricuspid valve regurgitation. RVSP is not calculated due to an inadequate TR jet. 11/13/2024: CTA chest PE protocol History: 73 years Female with . shortness of breath . Comparison: October 20, 2024 Findings: PULMONARY ARTERIES: No pulmonary embolus. VISUALIZED THORACIC INLET: Normal. MEDIASTINUM: Aorta/coronary arteries: Mild atheromatous disease. Heart/other: The heart is not enlarged. Lymph nodes: Prevascular lymphadenopathy is seen with the largest measures 1.6 cm. Bilateral hilar lymphadenopathy more in the right side. Subcarinal calcified lymph notes. Calcified lymph node in the left hilum. LUNGS: Emphysematous changes of the lungs. A mass is seen in the right lower lobe measuring 4.1 x 2.9 cm. Further evaluation advised. Smaller nodule is seen medially in the right lower lobe measuring 1.4 cm. Minimal interstitial opacification is seen in the right middle lobe and right upper lobe. Interstitial opacification also seen around the mass in the right lower lobe. Minimal interstitial opacification the left lung base. Right pleural effusion. No pulmonary nodules . No pneumothorax. VISUALIZED UPPER ABDOMEN: Proximal abdominal aorta measures 3 cm. Stent is seen in the left renal artery. Status post cholecystectomy. Slightly prominent pancreatic duct. Prominent CBD measuring 1.1 cm.. Otherwise, the visualized upper abdomen is normal. MUSCULOSKELETAL: Soft tissues: The superficial soft tissues are normal. Bones: Age appropriate degenerative changes of the spine. Increased kyphosis. Osteopenia of the bones. IMPRESSION: 1. No pulmonary embolism. 2. Mass measuring 4.1 x 2.9 cm in the right lower lobe. Further evaluation advised. Smaller nodule is seen adjacent to this mass in the right lower lobe area. 3. interstitial and alveolar opacification in the right middle , lower and upper lobes and left lower lobe suggestive of pneumonitis. 4. Extensive emphysematous changes seen bilaterally. 5. Right hilar and mediastinal lymphadenopathy. 6. The proximal abdominal aorta measures 3 cm. 07/10/2024: EXAMINATION: PET skull to mid thigh DATE: 07/10/2024 12:18 INDICATION: Malignant neoplasm of lung. TECHNIQUE: Blood glucose level was 93 mg/dL. 10.966 mCi of 18-fluorodeoxyglucose (18-FDG) was administered i.v. Low dose computed tomography (CT) images were acquired from the base of the brain to the proximal thighs for attenuation correction and anatomic localization. Automated exposure control was employed. Dose-length product (DLP) was 805 mGy-cm. Positron emission tomography (PET) images were acquired in the same distribution. COMPARISON: PET/CT 06/01/2022, chest CT 06/18/2024, 05/07/23 FINDINGS: Head/neck: There are likely changes of ocular lens replacement surgeries. There are scattered areas of low attenuation in the cerebral white matter, likely chronic small vessel ischemic disease. 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 There are no pathologically enlarged lymph nodes. Chest: There is a stent in proximal left subclavian artery. There is severe emphysema. A calcified left lung nodule and calcified left hilar and mediastinal lymph nodes are consistent with old granulomatous disease. There are airspace opacities in the lower lobes, right worse than left, with increased activity. There is increased activity in normal-sized and borderline-enlarged right hilar and mediastinal lymph nodes. No pleural effusion. The heart size is normal. There are coronary artery calcifications. No pericardial effusion. Abdomen/pelvis/proximal thighs: The liver is normal. There are changes of cholecystectomy. Calcifications in the spleen are consistent with old granulom atous disease. The pancreas, adrenal glands, and kidneys are normal. There are stents in the left bilateral common iliac arteries and left external iliac artery. There are no dilated loops of bowel. 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 There is a stent in left renal artery. There are no pathologically enlarged lymph nodes. There is no free intraperitoneal fluid. There is no osseous malignancy. There is subcutaneous old fat necrosis in right buttock. IMPRESSION: 1. Airspace opacities with increased activity in the lower lobes, right worse than left, consistent with radiation pneumonitis. 2. Severe emphysema. 3. Increased activity in normal-sized and borderline-enlarged right hilar and mediastinal lymph nodes, which may be reactive or metastatic disease. 06/18/2024: EXAMINATION: CT diagnostic chest w con INDICATION: C34.31 - Malignant neoplasm of lower lobe, right bronchus... COMPARISON: 02/22/2024 and 09/11/2022 FINDINGS: Severe emphysema with biapical pleural-parenchymal scarring. Calcified nodule at the left apex along with calcified left hilar and mediastinal lymph nodes consistent with old granulomatous disease. There is septal line thickening bilaterally basilar lower lobes, right middle lobe and lingula. Interval increase in size of a high attenuation potentially enhancing 1.7 x 1.4 cm spiculated nodule in the superior segment of the right lower lobe which measured approximately 1.2 x 1.1 cm on 12/13/2023. No significant interval change in a more caudal and lower density peripheral bandlike region of consolidation exten ding approximately 6 cm medial laterally measuring up to 1.5 cm in thickness likely related to changes of chronic radiation pneumonitis. No pleural effusion. Heart size is normal. Atherosclerotic coronary artery calcific location. No pericardial effusion. Thoracic aorta is normal in caliber with no dissection. There is stenting at the origin of the left subclavian artery. No significant change since 09/11/2022 in mild right hilar lymphadenopathy which favors reactive or metastatic lymph nodes. No other pathologically enlarged thoracic lymphadenopathy. A few calcified splenic granulomata. Mild to moderate thoracic spondylosis with bridging osteophytes at multiple levels consistent with diffuse idiopathic skeletal hyperostosis (DISH). IMPRESSION: 1. Enlargement of a now 1.7 x 1.4 cm higher attenuation, likely enhancing spiculated nodule in the superior segment of the right lower lobe suspicious for progression of primary lung cancer. 2. No interval change in a more caudal peripheral band of consolidation in the right lower lobe likely related to chronic radiation fibrosis for reported prior treatment of an earlier mildly FDG avid nodule at this location suspicious for lung cancer. 3. Severe emphysema. 4. Mild right hilar lymphadenopathy unchanged since 09/11/2022 which in the absence of interval treatment would favor reactive over metastatic lymphadenopathy. 11/08/2023: Echo Summary 1. Left ventricular chamber dimension is normal. 2. Left ventricular systolic function is normal, estimated at 65-70%. 3. The left ventricular diastolic function is grade I diastolic dysfunction. 4. Global longitudinal strain is abnormal at -15 %. 5. Right ventricular systolic function is normal. 6. Left atrial chamber dimension is mildly enlarged. 7. There is mild tricuspid valve regurgitation. 8. There is mild pulmonic regurgitation. Left Ventricle Left ventricular chamber dimension is normal. Left ventricular systolic function is normal, estimated at 65-70%. There is no increased left ventricular wall thickness. The left ventricular diastolic function is grade I diastolic dysfunction. Global longitudinal strain is abnormal at -15 %. Right Ventricle Right ventricular chamber dimension is normal. Right ventricular systolic function is normal. Left Atria Left atrial chamber dimension is mildly enlarged. Right Atria Right atrial chamber dimension is normal. Atrial Septum Intact interatrial septum visualized by color flow imaging. Review of Systems Constitutional: Constitutional: Reports no additional constitutional complaints Eyes: Eyes: Reports no additional eye complaints ENT: Reports system reviewed and no additional complaints, except as documented Cardiovascular: Cardiovascular: Reports no additional cardiovascular complaints Respiratory: Respiratory: Reports no additional respiratory complaints Gastrointestinal: Gastrointestinal: Reports no additional gastrointestinal complaints Musculoskeletal: Musculoskeletal: Reports no additional musculoskeletal complaints Neurologic: Reports system reviewed and no additional complaints, except as documented Psychiatric: Psychiatric: Reports no additional psychiatric complaints Endocrine: Endocrine: Reports no additional endocrine complaints Hematologic/Lymphatic: Hematologic/Lymphatic: Reports no additional hematologic/lymphatic complaints Allergic/Immunologic: Allergic/Immunologic: Reports no additional allergic/immunologic complaints Exam Const: General: cooperative and comfortable Orientation/consciousness: oriented to person, oriented to place and oriented to time Other: Ill-appearing HENMT: Head: normal to inspection Ears: hearing grossly normal bilaterally Eyes: General: appearance normal, both eyes and all related structures Neck: Neck: normal visual inspection Chest: Chest palpation & inspection: normal inspection of the chest Resp: Effort & Inspection: normal respiratory effort and able to speak in complete sentences Auscultation: crackles, no rales, no rhonchi, no wheezes and lung sounds not diminished Other: few crackles bases Cardio: Jugular venous distension: no JVD GI: Inspection: normal to inspection Skin: General skin exam: normal color Neuro: General: oriented to person, oriented to place and oriented to time Extrem: General: normal to inspection Psych: Appearance: grossly normal Objective Data Vital Signs Vital Signs: Vital Signs - 24 hr 11/18/24 10:40 11/18/24 13:30 11/18/24 13:31 Temperature Pulse Rate 62 Respiratory Rate 20 Blood Pressure Pulse Oximetry 94 92 Oxygen Delivery High Flow Nasal Cannula High Flow Nasal Cannula Oxygen Flow Rate 4 3.5 Fraction of Inspired Oxygen 11/18/24 13:49 11/18/24 14:00 11/18/24 20:00 Temperature 36.5 C Pulse Rate 68 72 68 Respiratory Rate 20 18 22 H Blood Pressure 144/47 H Pulse Oximetry 91 92 Oxygen Delivery High Flow Nasal Cannula Oxygen Flow Rate 3.5 Fraction of Inspired Oxygen 32 11/18/24 20:02 11/18/24 20:42 11/18/24 20:42 Temperature 36.4 C Pulse Rate 68 64 Respiratory Rate 22 H 20 Blood Pressure 174/51 H Pulse Oximetry 92 94 Oxygen Delivery High Flow Nasal Cannula Oxygen Flow Rate 3.5 Fraction of Inspired Oxygen 11/18/24 21:05 11/19/24 02:30 11/19/24 04:10 Temperature 36.6 C Pulse Rate 69 60 65 Respiratory Rate 20 18 18 Blood Pressure 164/58 H Pulse Oximetry 93 Oxygen Delivery Oxygen Flow Rate Fraction of Inspired Oxygen 11/19/24 08:16 11/19/24 08:49 11/19/24 08:50 Temperature Pulse Rate 63 65 Respiratory Rate 18 Blood Pressure Pulse Oximetry 90 Oxygen Delivery High Flow Nasal Cannula Oxygen Flow Rate 3 Fraction of Inspired Oxygen Intake/Output Intake/Output: Intake & Output 11/16/24 11/17/24 11/18/24 11/19/24 23:59 23:59 23:59 23:59 Intake Total 790 1084 1180 240 Output Total 600 2050 1150 200 Balance 190 -966 30 40 Meds/Results Medications: Active Medications Generic Name Dose Route Start Last Admin Trade Name Freq PRN Reason Stop Dose Admin Acetaminophen 650 mg 11/13/24 22:45 11/18/24 21:11 Acetaminophen 325 Mg Tablet PO 650 mg Q6H PRN Administration Mild Pain (1-3) or Fever Acetylcysteine 200 mg 11/14/24 20:00 11/19/24 08:13 Acetylcysteine 20% Inhal Soln 800 Mg/4 Ml Vial INHALATION 200 mg Q6HRT LUCY Administration Albuterol/Ipratropium 3 ml 11/14/24 08:00 11/19/24 08:13 Ipratropium 0.5 Mg/Albuterol Sulfate 2.5 Mg Ampul.Neb 3 Ml INHALATION 3 ml Q6HRT LUCY Administration Atorvastatin Calcium 40 mg 11/14/24 09:00 11/19/24 08:49 Atorvastatin 40 Mg Tablet PO 40 mg DAILY LUCY Administration Budesonide 0.5 mg 11/14/24 20:00 11/19/24 08:13 Budesonide Respule Neb 0.5 Mg/2 Ml Amp INHALATION 0.5 mg Q12HRT LUCY Administration Buspirone HCl 10 mg 11/16/24 17:08 11/19/24 08:48 Buspirone Hcl 10 Mg Tablet PO 10 mg Q12HR PRN Administration Anxiety Carvedilol 12.5 mg 11/15/24 21:00 11/19/24 08:49 Carvedilol 12.5 Mg Tablet PO 12.5 mg Q12HR LUCY Administration Desmopressin Acetate 0.2 mg 11/14/24 21:00 11/18/24 20:06 Desmopressin Acetate 0.1 Mg Tablet PO 0.2 mg HS LUCY Administration Doxycycline Hyclate 100 mg 11/14/24 09:00 11/19/24 08:48 Doxycycline Hyclate 100 Mg Tablet PO 11/20/24 21:01 100 mg Q12HR LUCY Administration Escitalopram Oxalate 10 mg 11/14/24 21:00 11/18/24 20:05 Escitalopram Oxalate 10 Mg Tablet PO 10 mg HS LUCY Administration Furosemide 20 mg 11/14/24 09:00 11/19/24 08:49 Furosemide 20 Mg Tablet PO 20 mg QAM LUCY Administration Guaifenesin 1,200 mg 11/14/24 09:00 11/19/24 08:49 Guaifenesin 12 Hr 600 Mg Tabcr PO 1,200 mg Q12HR LUCY Administration Hydralazine HCl 10 mg 11/15/24 14:58 11/15/24 20:27 Hydralazine Hcl 20 Mg/Ml Vial IV PUSH 10 mg Q8H PRN Administration Hypertension systolic >180 Cefepime HCl 2 gm in 50 mls @ 100 mls/hr 11/14/24 03:00 11/19/24 01:40 Maxipime 2 Gm/Ns 50 Ml IVPB 11/20/24 15:29 100 mls/hr Q12H LUCY Administration Lisinopril 40 mg 11/14/24 09:00 11/19/24 08:48 Lisinopril 20 Mg Tablet PO 40 mg QAM LUCY Administration Melatonin 5 mg 11/14/24 21:00 11/18/24 20:06 Melatonin 5 Mg Tablet PO 5 mg QHS LUCY Administration Methylprednisolone Sodium Succinate 40 mg 11/17/24 08:50 11/19/24 07:00 Methylprednisolone Sod Succ 40 Mg Vial IV PUSH 40 mg Q6HR LUCY Administration Metronidazole 500 mg 11/18/24 14:00 11/19/24 07:01 Metronidazole 500 Mg Tablet PO 11/20/24 22:01 500 mg Q8HR LUCY Administration Nicotine 1 patch 11/16/24 10:00 11/19/24 08:50 Nicotine (*Pbkc) 21 Mg Patch TRANSDERM Not Given DAILY [facility] Radiology Results: ITS Impressions Chest CTA 11/13/24 21:07 IMPRESSION: 1. No pulmonary embolism. 2. Mass measuring 4.1 x 2.9 cm in the right lower lobe. Further evaluation advised. Smaller nodule is seen adjacent to this mass in the right lower lobe area. 3. interstitial and alveolar opacification in the right middle , lower and upper lobes and left lower lobe suggestive of pneumonitis. 4. Extensive emphysematous changes seen bilaterally. 5. Right hilar and mediastinal lymphadenopathy. 6. The proximal abdominal aorta measures 3 cm. Chest X-Ray 11/15/24 21:22 IMPRESSION: Severe panlobular emphysematous disease without focal infiltrate or effusion. Redemonstration of a right lower lobe asymmetry by secondary signs on frontal view. Labs Labs: Laboratory Results - last 24 hr 11/14/24 11/14/24 11/19/24 06:27 14:33 04:31 WBC 13.3 H RBC 3.98 L Hgb 12.1 Hct 38.1 MCV 95.7 MCH 30.4 MCHC 31.8 L RDW 15.4 H Plt Count 218 MPV 9.5 Sodium 138 Potassium 3.6 Chloride 106 Carbon Dioxide 24 Anion Gap 8 BUN 34 H Creatinine 0.84 Estim Creat Clear Calc 45 Estimated GFR > 60 Glucose 127 H Calcium 7.6 L Magnesium 2.1 Total Bilirubin 0.6 AST 28 ALT 18 Alkaline Phosphatase 89 NT-Pro-B Natriuret Pep 3680 H Total Protein 6.1 L Albumin 3.1 L Nasal RSV Type A (PCR) Not detected Nasal RSV Type B (PCR) Not detected Chlamy pneumoniae PCR Not detected Adenovirus DNA Not detected Human Bocavirus (JERRY) Not detected Coronavirus Type OC43 Not detected Coronavirus Type HKU1 Not detected Coronavirus Type 229E Not detected Coronavirus Type NL63 Not detected Human Metapneumovir PCR Not detected Influenza A (PCR) Not detected Influenza A (H1) RNA Not detected Influenza A (H3) PCR Not detected Ur L.pneumophila Ag Not detected M. pneumoniae DNA Not detected Parainfluenza PCR Not detected Parainfluenza 2 (PCR) Not detected Parainfluenza 3 RNA (PCR) Not detected Parainfluenza 4 (PCR) Not detected Rhino/Enterovirus (JERRY) Not detected SARS-CoV-2 RNA (RT-PCR) Not detected Urine Pneumococcal Ag Not detected Influenza Type B (PCR) Not detected Misc Test Comment see note
[2024-11-19] MEDS: predniSONE 20 MG TABLET 40 MG PO (12:22)
--- NOTE | 2024-11-19 12:33 | PM.IMPN ---
Progress Note: A&P Assessment and Plan (1) Acute respiratory failure with hypoxia: Code(s): J96.01 - Acute respiratory failure with hypoxia Status: Acute Assessment and Plan: Pt presented to the ED for evaluation of increased SOB, cough, increased sputum, and chills that has worsened over the last several days. -Chest CT shows an increase in a right lower lobe mass concerning for malignant as well as findings of pneumonia. -->She received azithromycin, meropenem, and vancomycin in the ED. -->Her antibiotics will be changed to cefepime (patient reports anaphylaxis to penicillin in the ; cefepime has a different structure and is considered safe to prescribed), doxycycline, metronidazole, and vancomycin to cover possible postobstructive pneumonia. -Continue scheduled bronchodilators. -Andrest Mucinex ordered to help mobilize secretions. -->Sputum culture pending, container at bedside and reminded her about the need for it. -She is currently on 3 L and admits that she was told a couple of months ago that she needs oxygen at home however she called the company and had them remove attending from her home as she did not know how to use it. She will need a home oxygen evaluation prior to discharge. 11/14: Pt still c/o of SOB but reports that she feels 100% than yesterday but I would feel better if I didn't have all this sputum. -Plan to continue with above plan as well as serial AM labs and O2 assessment -Pending PULM consult, see below. 11/15: Bump in WBC over night, will continue to monitor, re-imaging may be needed if continues to climb. Continue IV abx and breathing tx. CRP continues to be elevated but is down trending. Per nursing, pt went up to 8L of O2 overnight due to increased need and has been on since. Asked nursing to trial titrate down to baseline 3L NC to see how she does. Per PULM yesterday, pt desatted while he was in room due to mucus plug, may be related again last night? Pt appears to be less congested today. 11/16: WBC starting to down trend once again, will continue to monitor daily labs. Continue IV abx and breathing tx. Per chart, pt needed an increase of O2 overnight (was placed on 9L NC) and the provider overnight ordered an acute CXR which looks similar to prior. Pt reports that she had an anxiety attack last night, this may be why this increase in O2 need occurred. Pt titrated back down to 3L NC by me today at the bedside and she maintained an O2 of 92%; O2 goal of 90-94%. No wheezing still upon my exam today, but lungs are still sounding very coarse throughout. 11/17: Pulm rounded again today is going to make a few adjustments: -Chest therapy, Solumedrol 40mg Q6, he will continue to see the pt, please see pulm note. -Pt reports having difficulty keeping up breathing zavala. Her BNP is elevated since admission, will give 40mg IV Lasix today to see if it helps with her breathing. Continue to trend BNP levels 11/18: WBC down trending once again. Pulm rounding when I rounded. Discussed no new plans, continue with chest therapy, steroids, and assessment of breathing. Pt on 4L NC now satting 95% and stable. No wheezing. Switched from IV Flagyl to oral Flagyl today. 11/19: WBC 13.1. Pulmonary plan apnea study tonight on 3 liters. Acetylcysteine discontinued. Steroids switched to oral. Continue chest therapy. Cefepime 2 gram IVPB q12, Doxycycline 100 mg PO q 12, and Metronidazole 500 mg PO q 8. 02@3LNC with Sa02 90%. No wheezing. BNP 3680. Duonebs q 6. Guaifenesin 1,200 mg PO q 12. PT/OT. (2) Postobstructive pneumonia: Code(s): J18.9 - Pneumonia, unspecified organism Status: Acute Assessment and Plan: See above. (3) Right lower lobe lung mass: Code(s): R91.8 - Other nonspecific abnormal finding of lung field Status: Acute Assessment and Plan: Chest CTs performed in June and more recently October 2024 show a continued increase in the RLL nodule concerning for malignancy. She was scheduled for a CT-guided biopsy yesterday however she was hypoxic on arrival and the biopsy was canceled. She was then sent to the emergency department with plans for admission however she left against medical advice. -Continue to hold clopidogrel and she will be NPO after midnight for possible CT-guided lung biopsy tomorrow depending on the radiologist schedule. 11/14: -CT biopsy of lung ordered for today but per CT, unable to do if pt is actively using O2. Per nursing, pt does not use O2 at home, but, per hospitalist note, pt was told a couple of months ago that she needs O2 at home however she called the company and had them remove O2 from her home as she did not know how to use it. She will need a home oxygen evaluation prior to discharge. -->Upon interview today, pt states that she was not given any direction on how to work home O2, that is why she has not been using it -->Encouraged nursing to try to downtrend pt O2 while inpt to obtain biopsy. -->Pending PULM consult and appreciate their recommendations for lung mass work-up Pulm, Dr. Bañuelos, saw pt and updated me on plan, please see his thorough note. -Per pt report she is still smoking 2 ppd, 118 year hx. Pt recently went to PCP office for a cough and congestion on 11/05 and at that time her O2 sat was charted as 75%, pt was given Zpak and steroids and their of those tx worked. Also reporting home sats of 81-91% per pulse ox. Pt was given O2 delivered to her home in June 2024 and set all of the O2 back. -Goals of O2 90-94% -Plan to D/C vanc due to MRSA swab being negative, add echo, add on CPR and procal for AM labs, and add Mucomyst 200mg Q6 to help with sputum, and a resp pathogen panel. -Plan to continue with no systemic steroids, recs for adding Solumedrol 40mg Q6 x1 day and change to prednisone for the remaining x4 days if develops wheezing. -Pt will require higher level of care for biopsy due to O2 use, but declines going to [facility]. -I updated Dr. Palomo (pts onc) about her not being able to get the biopsy performed on 11/12 and the need for higher level of care for this but refusing transfer to [facility]. He recs f/u in his office to plan further intervention / treatment. -->Has been treated by Dr. Palomo in the past with radiation and the last biopsy that was attempted was in 2022 and it came back inconclusive Will continue to treat PNA and COPD exac with cefe, Doxy, and Flagyl for gram neg and abnormal PNA coverage. Pending ECHO, AM labs, VS, and breathing status. 11/15: Reiterated plan for onc f/u outpt to pt today, told her that I spoke to Dr. Palomo and this was his recommendation for further management. Pt agreeable with the plan. ECHO resulted unremarkable today. 11/17: Reiterated plan for onc f/u outpt to pt today, told her that I spoke to Dr. Palomo and this was his recommendation for further management. Pt agreeable with the plan. 11/18: Once again reiterated plan for onc f/u outpt to pt today, told her that I spoke to Dr. Palomo and this was his recommendation for further management. Pt agreeable with the plan. (4) Chronic obstructive pulmonary disease: Code(s): J44.9 - Chronic obstructive pulmonary disease, unspecified Status: Acute Assessment and Plan: Continue home meds, abx for PNA ordered. Duoneb q 6. Guaifenesin 1,200 mg PO BID. Prednisone 40 mg PO daily. (5) Hypertension: Code(s): I10 - Essential (primary) hypertension Status: Acute Assessment and Plan: Blood pressures have been running high and will be monitored closely for possible adjustments in medication depending on how she trends. -Her home medications have been reviewed and resumed as appropriate. 11/15: Pt BPs still running high, systolic 150/170. Increased home Coreg from 6.25mg BID to 12.5mg BID. Also ordered hyral PRN. 11/16: HTN baseline and a bit higher overnight, pt reports having a panic attack. Pt to receive second dose of increased coreg of 12.5 BID this AM, will continue to monitor. x1 dose of hydral was used last night. 11/17: Pt HTN continue to be moderately elevated, BNP today elevated at to 4050 from 1720 on 11/12, will give a x1 dose of Lasix 40mg today IV to help alleviate sx and BP. Will continue to monitor BNP daily and BP. Kidney labs WDL. 11/18: HTN has been more stable over the last 24 hours, will continue to monitor BNP and treat with Lasix. Continue with daily labs 11/19: Blood pressure 165/58. Coreg 12.5 mg PO BID, Lisinopril 40 mg PO QAM, and Furosemide 20 mg PO qam. (6) Anxiety: Code(s): F41.9 - Anxiety disorder, unspecified Status: Acute Assessment and Plan: Restarted home meds of escitalopram -Started Buspar for breakthrough anxiety on 11/16 BID PRN, room to increase to TID if needed -No benzos recommended due to O2 need and resp status Subjective Date/time seen: 11/19/24 12:33 Interval history: Patient reports feeling better today. Patient hoping to go home tomorrow. Patient to work with physical therapy today. Patient denies chest pain, palpitations, shortness of breath at rest, headache, dizziness, nausea, or vomiting. Review of Systems Review of Systems: All systems reviewed & are unremarkable except as noted in HPI and below Exam Const: General: comfortable and no acute distress Resp: Effort & Inspection: normal respiratory effort Auscultation: crackles (bases) Cardio: Rate: regular rate Rhythm: regular rhythm GI: GI Palp: Yes Soft to palpation Auscultation: normal bowel sounds Neuro: Speech: normal speech Extrem: General: no pedal edema Psych: Mental Status: mental status grossly normal Affect: normal affect Objective Data Vital Signs Vital Signs: Vital Signs - 24 hr 11/18/24 13:30 11/18/24 13:31 11/18/24 13:49 Temperature Pulse Rate 62 68 Respiratory Rate 20 20 Blood Pressure Pulse Oximetry 92 Oxygen Delivery High Flow Nasal Cannula Oxygen Flow Rate 3.5 Fraction of Inspired Oxygen 11/18/24 14:00 11/18/24 20:00 11/18/24 20:02 Temperature 97.7 F 97.6 F Pulse Rate 72 68 68 Respiratory Rate 18 22 H 22 H Blood Pressure 144/47 H 174/51 H Pulse Oximetry 91 92 92 Oxygen Delivery High Flow Nasal Cannula Oxygen Flow Rate 3.5 Fraction of Inspired Oxygen 32 11/18/24 20:42 11/18/24 20:42 11/18/24 21:05 Temperature Pulse Rate 64 69 Respiratory Rate 20 20 Blood Pressure Pulse Oximetry 94 Oxygen Delivery High Flow Nasal Cannula Oxygen Flow Rate 3.5 Fraction of Inspired Oxygen 11/19/24 02:30 11/19/24 04:10 11/19/24 08:16 Temperature 97.8 F Pulse Rate 60 65 63 Respiratory Rate 18 18 18 Blood Pressure 164/58 H Pulse Oximetry 93 Oxygen Delivery Oxygen Flow Rate Fraction of Inspired Oxygen 11/19/24 08:49 11/19/24 08:50 Temperature Pulse Rate 65 Respiratory Rate Blood Pressure Pulse Oximetry 90 Oxygen Delivery High Flow Nasal Cannula Oxygen Flow Rate 3 Fraction of Inspired Oxygen Intake/Output Intake/Output: Intake & Output 11/16/24 11/17/24 11/18/24 11/19/24 23:59 23:59 23:59 23:59 Intake Total 790 1084 1180 480 Output Total 600 2050 1150 200 Balance 190 -966 30 280 Meds/Results Medications: Active Medications Generic Name Dose Route Start Last Admin Trade Name Freq PRN Reason Stop Dose Admin Acetaminophen 650 mg 11/13/24 22:45 11/18/24 21:11 Acetaminophen 325 Mg Tablet PO 650 mg Q6H PRN Administration Mild Pain (1-3) or Fever Albuterol/Ipratropium 3 ml 11/14/24 08:00 11/19/24 08:13 Ipratropium 0.5 Mg/Albuterol Sulfate 2.5 Mg Ampul.Neb 3 Ml INHALATION 3 ml Q6HRT LUCY Administration Atorvastatin Calcium 40 mg 11/14/24 09:00 11/19/24 08:49 Atorvastatin 40 Mg Tablet PO 40 mg DAILY LUCY Administration Budesonide 0.5 mg 11/14/24 20:00 11/19/24 08:13 Budesonide Respule Neb 0.5 Mg/2 Ml Amp INHALATION 0.5 mg Q12HRT LUCY Administration Buspirone HCl 10 mg 11/16/24 17:08 11/19/24 08:48 Buspirone Hcl 10 Mg Tablet PO 10 mg Q12HR PRN Administration Anxiety Carvedilol 12.5 mg 11/15/24 21:00 11/19/24 08:49 Carvedilol 12.5 Mg Tablet PO 12.5 mg Q12HR LUCY Administration Desmopressin Acetate 0.2 mg 11/14/24 21:00 11/18/24 20:06 Desmopressin Acetate 0.1 Mg Tablet PO 0.2 mg HS LUCY Administration Doxycycline Hyclate 100 mg 11/14/24 09:00 11/19/24 08:48 Doxycycline Hyclate 100 Mg Tablet PO 11/20/24 21:01 100 mg Q12HR LUCY Administration Escitalopram Oxalate 10 mg 11/14/24 21:00 11/18/24 20:05 Escitalopram Oxalate 10 Mg Tablet PO 10 mg HS LUCY Administration Furosemide 20 mg 11/14/24 09:00 11/19/24 08:49 Furosemide 20 Mg Tablet PO 20 mg QAM LUCY Administration Guaifenesin 1,200 mg 11/14/24 09:00 11/19/24 08:49 Guaifenesin 12 Hr 600 Mg Tabcr PO 1,200 mg Q12HR LUCY Administration Hydralazine HCl 10 mg 11/15/24 14:58 11/15/24 20:27 Hydralazine Hcl 20 Mg/Ml Vial IV PUSH 10 mg Q8H PRN Administration Hypertension systolic >180 Cefepime HCl 2 gm in 50 mls @ 100 mls/hr 11/14/24 03:00 11/19/24 01:40 Maxipime 2 Gm/Ns 50 Ml IVPB 11/20/24 15:29 100 mls/hr Q12H LUCY Administration Lisinopril 40 mg 11/14/24 09:00 11/19/24 08:48 Lisinopril 20 Mg Tablet PO 40 mg QAM LUCY Administration Melatonin 5 mg 11/14/24 21:00 11/18/24 20:06 Melatonin 5 Mg Tablet PO 5 mg QHS LUCY Administration Metronidazole 500 mg 11/18/24 14:00 11/19/24 07:01 Metronidazole 500 Mg Tablet PO 11/20/24 22:01 500 mg Q8HR LUCY Administration Nicotine 1 patch 11/16/24 10:00 11/19/24 08:50 Nicotine (*Pbkc) 21 Mg Patch TRANSDERM Not Given DAILY [facility] Prednisone 40 mg 11/19/24 09:40 11/19/24 12:22 Prednisone 20 Mg Tablet PO 40 mg DAILY@0800 LUCY Administration Radiology Results: ITS Impressions Chest CTA 11/13/24 21:07 IMPRESSION: 1. No pulmonary embolism. 2. Mass measuring 4.1 x 2.9 cm in the right lower lobe. Further evaluation advised. Smaller nodule is seen adjacent to this mass in the right lower lobe area. 3. interstitial and alveolar opacification in the right middle , lower and upper lobes and left lower lobe suggestive of pneumonitis. 4. Extensive emphysematous changes seen bilaterally. 5. Right hilar and mediastinal lymphadenopathy. 6. The proximal abdominal aorta measures 3 cm. Chest X-Ray 11/15/24 21:22 IMPRESSION: Severe panlobular emphysematous disease without focal infiltrate or effusion. Redemonstration of a right lower lobe asymmetry by secondary signs on frontal view. Labs Labs: Laboratory Results - last 24 hr 11/14/24 11/14/24 11/19/24 06:27 14:33 04:31 WBC 13.3 H RBC 3.98 L Hgb 12.1 Hct 38.1 MCV 95.7 MCH 30.4 MCHC 31.8 L RDW 15.4 H Plt Count 218 MPV 9.5 Sodium 138 Potassium 3.6 Chloride 106 Carbon Dioxide 24 Anion Gap 8 BUN 34 H Creatinine 0.84 Estim Creat Clear Calc 45 Estimated GFR > 60 Glucose 127 H Calcium 7.6 L Magnesium 2.1 Total Bilirubin 0.6 AST 28 ALT 18 Alkaline Phosphatase 89 NT-Pro-B Natriuret Pep 3680 H Total Protein 6.1 L Albumin 3.1 L Nasal RSV Type A (PCR) Not detected Nasal RSV Type B (PCR) Not detected Chlamy pneumoniae PCR Not detected Adenovirus DNA Not detected Human Bocavirus (JERRY) Not detected Coronavirus Type OC43 Not detected Coronavirus Type HKU1 Not detected Coronavirus Type 229E Not detected Coronavirus Type NL63 Not detected Human Metapneumovir PCR Not detected Influenza A (PCR) Not detected Influenza A (H1) RNA Not detected Influenza A (H3) PCR Not detected Ur L.pneumophila Ag Not detected M. pneumoniae DNA Not detected Parainfluenza PCR Not detected Parainfluenza 2 (PCR) Not detected Parainfluenza 3 RNA (PCR) Not detected Parainfluenza 4 (PCR) Not detected Rhino/Enterovirus (JERRY) Not detected SARS-CoV-2 RNA (RT-PCR) Not detected Urine Pneumococcal Ag Not detected Influenza Type B (PCR) Not detected Misc Test Comment see note Quality VTE Prophylaxis VTE prophylaxis: mechanical ordered
[2024-11-19 18:28] LABS: Mycoplasma IgM Antibody Titer. 136 U/mL
[2024-11-19] MEDS: DESMOPRESSIN ACETATE 0.1 MG TABLET 0.2 MG PO (20:13)
[2024-11-19] MEDS: ESCITALOPRAM OXALATE 10 MG TABLET PO (20:14)
[2024-11-19] MEDS: MELATONIN 5 MG TABLET PO (20:15)
[2024-11-20] VITALS (14 sets, daily range): BP systolic 148–172; BP diastolic 41–53; PULSE 58–84; RESP 16–18; TEMP 36.8–37.6; O2SAT 90–96
[2024-11-20] MEDS: CEFEPIME 2 GM/NS 50 ML 2 GM/50 ML BAG IVPB ×2 (02:41→15:14)
[2024-11-20] MEDS: metroNIDAZOLE 500 MG TABLET PO ×3 (06:20→21:00)
[2024-11-20 06:48] LABS: Hematocrit 39.3 % (37.0-47.0); Hemoglobin 12.5 g/dL (12.0-15.0); Mean Corpuscular HGB Conc 31.8 g/dl (32-36); Mean Corpuscular Volume 94.5 fl (80-100); Mean Platelet Volume 9.6 fl (7.4-10.4); Platelet Count Result 180 k/mm3 (150-375); Red Blood Count 4.16 M/mm3 (4.2-5.4); Red Cell Distribution Width 15.2 % (11.5-14.5); White Blood Count 16.1 K/mm3 (4.5-10.0)
[2024-11-20 07:00] LABS: Alanine Aminotransferase 17 U/L (6-35); Albumin Level 2.9 g/dL (3.5-5.1); Alkaline Phosphatase 90 U/L (38-126); Anion Gap 5 mmol/L (4-12); Aspartate Amino Transferase 27 U/L (14-36); Bilirubin,Total 0.6 mg/dL (0.2-1.3); Blood Urea Nitrogen 35 mg/dL (7-17); Calcium 7.9 mg/dL (8.4-10.2); Carbon Dioxide 23 mmol/L (22-30); Chloride 108 mmol/L (98-107); Estimated CRCL calculation 50 ml/min; Estimated Glomerular Filt Rate > 60; Glucose 110 mg/dL (65-110); Potassium 3.6 mmol/L (3.4-5.0); Sodium 136 mmol/L (137-145); Total Protein 5.9 g/dL (6.3-8.2)
[2024-11-20 07:07] LABS: NT Pro B Type Natriuretic Pept 4060 pg/mL (19.9-100)
[2024-11-20] MEDS: BUDESONIDE RESPULE NEB 0.5 MG/2 ML AMP INHALATION ×2 (08:50→21:02)
[2024-11-20] MEDS: IPRATROPIUM 0.5 MG/ALBUTEROL SULFATE 2.5 MG AMPUL.NEB 3 ML INHALATION ×3 (08:50→21:02)
[2024-11-20] MEDS: predniSONE 20 MG TABLET 40 MG PO (09:27)
[2024-11-20] MEDS: carvediloL 12.5 MG TABLET PO ×2 (09:27→20:59)
[2024-11-20] MEDS: DOXYCYCLINE HYCLATE 100 MG TABLET PO ×2 (09:27→20:59)
[2024-11-20] MEDS: ATORVASTATIN 40 MG TABLET PO (09:28)
[2024-11-20] MEDS: lisinopriL 20 MG TABLET 40 MG PO (09:28)
[2024-11-20] MEDS: guaiFENesin 12 HR 600 MG TABCR 1200 MG PO ×2 (09:28→20:59)
[2024-11-20] MEDS: FUROSEMIDE 40 MG TABLET PO (09:30)
--- NOTE | 2024-11-20 10:55 | PM.PNPUL ---
Progress Note: A&P Assessment and Plan (1) Postobstructive pneumonia: Code(s): J18.9 - Pneumonia, unspecified organism Status: Acute Assessment and Plan: Patient with worsening respiratory symptoms as an outpatient was treated with a Z-Gray and completed this on 11/10/2024 lung with steroids and felt no better. She is afebrile. She does have a leukocytosis with an elevated CRP at 15.1. CT scan shows right lower lobe consolidations with some infiltrate. COVID, influenza, RSV RT PCR assay negative. Blood cultures are pending. MRSA nasal swab negative. 11/14/24: Plan: I will treat for pneumonia including postobstructive pneumonia as she may have lung cancer in the right lower lobe. Sputum culture ordered. Urine Legionella, urine pneumococcal and serum mycoplasma IgM already sent. I will send a respiratory pathogen panel. I will send a procalcitonin on 11/15/2024. I will repeat a CRP on 11/15/2024. Patient was initiated on azithromycin, meropenem and vancomycin. This was changed to vancomycin, cefepime, Flagyl and doxycycline All started on 11/14/2024 when she was admitted to the floor. MRSA nasal swab negative and I will discontinue vancomycin. Inpatient Pulmonary Services will resume on 11/17/2024, call with questions. 11/17/24: Overall the patient tells me she is the same as yesterday but worse since 11/13/2024. She has rest shortness of breath and dyspnea with any activity. She has a mostly dry cough with minimal phlegm production no hemoptysis. Patient tells me she has difficulty expectorating. She feels hot and cold. She feels as if she has wheezes. She is afebrile. White blood cell count 13.3, creatinine 0.7, BNP has increased from 1720 on 11/12 2 4050 today. CRP has increased from 4.9 on 11/15 to 7.8 today. Procalcitonin 0.2. Plan: Continue cefepime, doxycycline and Flagyl all day 4. CRP is decreased from admission but increased over the last few days. Urine Legionella, urine pneumococcal, serum mycoplasma IgM and respiratory pathogen panel pending. 11/18/24: patient had an episode of acute shortness of breath in the middle the night that woke her from her sleep. She had declined her to a.m. treatment and woke up at 4:00 a.m. acutely short of breath that responded to a stat DuoNeb. Overall the patient tells me she is breathing worse than yesterday. She has no rest shortness of breath but shortness of breath whenever she moves. She has minimal phlegm production today. When I enter the room she was on 6 L 97% And I decreased her to 4 L nasal cannula her saturations were 93%. White blood cell count 10.3, creatinine 0.84, BNP mildly decreased to 3720. Yesterday she diuresed 966 mL and cumulative she is positive 104 mL since admission. Her weight today is 55.4. Plan: Continue cefepime, doxycycline and Flagyl all day 5 Of 7. will change Flagyl from IV to p.o. today. Urine Legionella, urine pneumococcal, serum mycoplasma IgM and respiratory pathogen panel pending. 11/19/2024: Patient tells me she feels much better today. She says that her breathing is 75% back to her normal. Her cough is improved and her phlegm production has improved and is clear now. She has not been out of bed yet. currently she is on 3 L nasal cannula saturations 90%. She is afebrile. White blood cell count 13.3, creatinine 0.84, BNP 3680. Yesterday she was positive 30 mL, cumulative she is positive 24 mL since admission. Her weight today is 55.2. Plan: Continue cefepime, p.o. doxycycline, p.o. Flagyl all day 6 of 7. Respiratory pathogen panel negative, urine Legionella negative, urine pneumococcal negative, mycoplasma IgM negative. 11/20/2024: Patient tells me she continues to improve. States she is breathing 80% back to her normal. Her cough is improved with no flow hemoptysis. She has minimal phlegm production. She is afebrile. Currently she is on 3 L nasal cannula saturations 92%. White blood cell count 16.1, creatinine 0.77. Her weight today is 60.4. Patient tells me she is ready to go home today. From a pulmonary perspective patient is ready to be discharged on these pulmonary medications: Prednisone 40 mg p.o. q.day x3 days. Trelegy 100- 62.5-25 at 1 puff q.day Rescue albuterol 2 puffs q.4 hours p.r.n. shortness of breath or wheezing Guaifenesin 600 mg p.o. b.i.d. p.r.n. congestion. Oxygen at rest and per activity per formal home O2 assessment which I have ordered. Oxygen when she naps or sleeps as guided by overnight oximetry on 4 L on 11/19/2024. Diuretics per hospitalist team. Currently she is on Lasix 20 p.o. q.day Follow-up in the Pulmonary Clinic in 4 weeks. I gave her business card and score informed our surgery scheduler. Discussed with Ligia Ulrich, will follow with you. Discussed with Ligia Ulrich, will sign off, call with questions. (2) Chronic obstructive pulmonary disease: Code(s): J44.9 - Chronic obstructive pulmonary disease, unspecified Status: Acute Assessment and Plan: Regarding her COPD, 118 hundred eighteen pack year tobacco use currently smoking 2 packs per day. She was diagnosed approximately 10 years ago. She does not remember having PFTs. I have no PFTs. For CT in our system from 06/11/[address] scan from 11/13/2024 demonstrates severe panlobular emphysema all lung hall. Patient tells me 10 years ago she had a collapsed lung requiring a chest tube and hospitalization and recovered. One year ago she could walk 2 blocks. Three months ago which is the last time she felt normal she could walk 1 block and was limited by leg pain. Patient had a fall and was admitted to [facility] approximately 6 months ago and at that time she was prescribed oxygen. The oxygen was delivered to her house but she did not know how to use it and returned it. At home she measures her pulse oximetry sitting on room air and this ranges from 81 to 91%. 11/13/2024: ABG on 2 L 7.46/34/70. started on trelegy 200 a few weeks ago and says that this does help her. 11/13/2024: Patient returned to the emergency room with worsening shortness of breath, cough and congestion. Room air saturations were 81%. She had rales and rhonchi. White blood cell count 14.5, eosinophils 0.7%. Creatinine 0.89. CRP 15.1. COVID, influenza and RSV RT PCR assay negative. MRSA nasal swab negative. ABG on 2 L 7./70. Patient was initiated on azithromycin, meropenem and vancomycin. This was changed to vancomycin, cefepime, Flagyl and doxycycline when she was admitted to the floor. 11/14/2024: Patient tells me she feels the same as she did yesterday. She has shortness of breath at rest and with activity and has not been out of bed. She had previously been on 3 L nasal cannula but the nurse told me her saturations went to 77% about 3 minutes before I entered. She was placed on 5 L and her saturations were 91%. She complains of being tired, no chest pain no hemoptysis. she says the phlegm is increased over the last 3 months and sometimes he gets stuck in her throat. Patient may or may not be having a COPD exacerbation. Agree with treatment for pneumonia including postobstructive pneumonia while holding off on systemic steroids. Plan: I will place the patient on DuoNebs q.6 hours, I will add nebulized budesonide 500 mcg b.i.d.. This represents maximal bronchodilators and I will discontinue trilogy. Patient is having difficulty expectorating. Continue guaifenesin 1200 mg p.o. b.i.d., Cornet flutter valve q.2 hours while awake, I will add Mucomyst nebulizer 200 mg q.6 hours. blood cultures are pending. Urine Legionella, urine pneumococcal and serum mycoplasma IgM already sent. I will send a respiratory pathogen panel. 11/17/24: Patient with worsening SOB over the last few days, inability to clear secretions. No wheezing on exam. Plan: I will add Solu-Medrol 40 mg IV q.6 hours for worsening symptoms. I will increase her DuoNebs to q.6 hours, Continue guaifenesin 1200 mg p.o. b.i.d., Cornet flutter valve q.2 hours while awake, she notices minimal change with Mucomyst nebulizer but will continue these. I will try Vest vibratory therapy today. 11/17/24: Patient with worsening breathing the last few days, inability to clear secretions. No wheezing on exam. Minimal secretion clearance with the vest but she wishes to continue. Plan: continue Solu-Medrol 40 q.6, day 2, DuoNebs q.4 hours, guaifenesin 1200 b.i.d., Cornet flutter valve Q 2 hours while awake, Mucomyst q.6 hours and vest therapy. 11/19/24: She tells me the vest therapy provides her no benefit. She tells me the Mucomyst does not help her expectorate any phlegm. Plan: I will change her Solu-Medrol to 40 mg prednisone p.o. q.day, day 3 steroids. Continue DuoNebs q.6 hours, budesonide b.i.d., guaifenesin 1200 b.i.d.. I will DC Mucomyst and DC the vest therapy. 11/20/24: Patient had an overnight oximetry on 3 L nasal cannula with recording duration of 7 hours and 40 minutes. Average saturation 90%. Low saturation 75%. Time with saturation less than or equal to 88% was 144 minutes. Oxygen desaturation 1.3. All of the desaturation time occurred after an abrupt decrease at 1:30 a.m. and the patient tells me her oxygen did come off last night. plan: although her hypoxemia at night may be related to her oxygen come off I will discharge her on 4 L at night. Will continue steroids to complete total of 5 days, discharged on trilogy And guaifenesin p.r.n. (3) Acute respiratory failure with hypoxia: Code(s): J96.01 - Acute respiratory failure with hypoxia Status: Acute Assessment and Plan: The patient was discharged from [facility] approximately 6 months ago after a fall and was prescribed oxygen. The oxygen was delivered to her house but she did not know how to use it and returned it. At home she measures her pulse oximetry sitting on room air and this ranges from 81 to 91%. ABG on 2 L 7.46/34/70. There is no evidence of hypercarbic respiratory failure. Plan: Goal saturation 90-94%, currently the patient is on 3 L with saturations 91%. Adjust accordingly. 11/17/24: Patient was on 4 L nasal cannula when I enter the room and her saturations were 89%. I increased her to 5 L nasal cannula and her saturations were 90%. Plan: Goal saturation 90-94%. Currently the patient is on 5 L nasal cannula, adjust accordingly. 11/18/24: Currently on 4 L nasal cannula with saturations 93%. Plan: Goal saturation 90-94% and adjust oxygen as needed. 11/19/24: Patient currently on 3 L nasal cannula with saturation 90%. Plan: I will obtain overnight oximetry on 3 L tonight to assess nocturnal oxygen requirements. 11/20/24: Will perform home O2 assessment today. Will discharge on 4 L at night. (4) Malignant neoplasm of lower lobe, right bronchus or lung: Code(s): C34.31 - Malignant neoplasm of lower lobe, right bronchus or lung Status: Acute Assessment and Plan: Patient is followed by Oncology, Dr. Palomo, last note I have is from 10/24/2024. Patient had a CT-guided biopsy of a right lung mass on 07/21/2022 with scant atypical cells. In the comment it says morphologically compatible with carcinoma but is also morphologically compatible with reactive tissue. Completed SBRT 10/09/2022. CT scan 10/20/2024 showed a 2.1 cm right lower lobe nodule consolidation possibility of neoplasm. The mass has increased in size from the previous CT when it was 1.[address]-guided biopsy of the mass ordered and based on the pathology we will decide about PET scan. 11/12/2024: Patient presented to the hospital for outpatient CT-guided lung biopsy with low saturations and was sent to the emergency room. CT-guided Biopsy cannot be performed at [facility] as she requires oxygen. 11/13/2024: CT scan with 4.1 x 2.9 cm right lower lobe mass abutting the pleura and 1.4 cm right lower lobe nodule abutting the pleura. Bilateral hilar lymphadenopathy. 11/14/2024: Plan: Bronchoscopic biopsy at [facility] is not a consideration given the very low yield of the procedure. If tissue diagnosis is needed per oncology the patient will need to be referred to a higher level of care facility for CT-guided biopsy or consultation with interventional director child for possible bronchoscopy with EBUS sampling of the hilar lymph nodes. I discussed this with the patient and currently the patient is refusing referral to a [facility]. Consider discussing with her oncologist, Dr. Palomo. 11/17/24: Dr. Palomo was made aware by hospitalist team that the patient was unable to receive her CT guided biopsy and that she in the hospital with hypoxemic respiratory failure. He wished the patient to follow-up with him as an outpatient so that a plan could be made regarding further workup of her increasing right lower lobe mass. Subjective Date/time seen: 11/20/24 10:55 Interval history: 11/14/2024: This is a new pulmonary consult for lung biopsy. 73-year-old with a history of hypertension, hyperlipidemia, GERD, Subclavian artery stenosis status post stent, renal artery stenosis, Peripheral artery disease status post right carotid endarterectomy 1995, left carotid endarterectomy .COPD, radiographic lung cancer status post XRT. Regarding her COPD she was diagnosed approximately 10 years ago. She does not remember having PFTs. patient tells me 10 years ago she had a collapsed lung requiring a chest tube and hospitalization and recovered.One year ago she could walk 2 blocks. Three months ago which is the last time she felt normal she could walk 1 block and was limited by leg pain. Patient had a fall and was admitted to [facility] approximately 6 months ago and at that time she was prescribed oxygen. The oxygen was delivered to her house but she did not know how to use it and returned it. At home she measures her pulse oximetry sitting on room air and this ranges from 81 to 90 1%. Patient smoked tobacco from age 14 to current at 2 packs per day for 118 pack years, patient was exposed to secondhand smoke from both of her parents. 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 Patient is followed by Oncology, Dr. Palomo, last note I have is from 10/24/2024. Patient had a CT-guided biopsy of a right lung mass on 07/21/2022 with scant atypical cells. In the comment it says morphologically compatible with carcinoma but is also morphologically compatible with reactive tissue. Completed SBRT 10/09/2022. CT scan 10/20/2024 showed a 2.1 cm right lower lobe nodule consolidation possibility of neoplasm. The mass has increased in size from the previous CT when it was 1.[address]-guided biopsy of the mass ordered and based on the pathology we will decide about PET scan. 11/05/2024: PCP office visit note for 1 week of cough and congestion. Room air saturations were listed as 75%. She had rhonchi and wheezes and was prescribed a Z-Gray and steroids. Patient took these medicines but felt no improvement. 11/12/2024: Patient presented to the hospital for outpatient CT-guided lung biopsy with low saturations and was sent to the emergency room. She had a white count of 13.4, creatinine 0.85, BNP 1720 and required 2 L nasal cannula for saturation 93%. Patient left AMA. 11/13/2024: Patient returned to the emergency room with worsening shortness of breath, cough and congestion. Room air saturations were 81%. She had rales and rhonchi. White blood cell count 14.5, eosinophils 0.7%. Creatinine 0.89. CRP 15.1. COVID, influenza and RSV RT PCR assay negative. MRSA nasal swab negative. ABG on 2 L 7.46/34/70. Patient was initiated on azithromycin, meropenem and vancomycin. This was changed to vancomycin, cefepime, Flagyl and doxycycline when she was admitted to the floor. 11/13/2024: Patient tells me she feels the same as she did yesterday. She has shortness of breath at rest and with activity and has not been out of bed. She had previously been on 3 L nasal cannula but the nurse told me her saturations went to 77% about 3 minutes before I entered. She was placed on 5 L and her saturations were 91%. She complains of being tired, no chest pain no hemoptysis. she says the phlegm is increased over the last 3 months and sometimes he gets stuck in her throat. 11/17/24: Overall the patient tells me she is the same as yesterday but worse since 11/13/2024. She has rest shortness of breath and dyspnea with any activity. She has a mostly dry cough with minimal phlegm production no hemoptysis. Patient tells me she has difficulty expectorating. She feels hot and cold. She feels as if she has wheezes. She is afebrile. White blood cell count 13.3, creatinine 0.7, BNP has increased from 1720 on 11/12 2 4050 today. CRP has increased from 4.9 on 06/14 to 7.8 today. Procalcitonin 0.2. Solu-Medrol 40 q.6 started. 11/18/24: patient had an episode of acute shortness of breath in the middle the night that woke her from her sleep. She had declined her to a.m. treatment and woke up at 4:00 a.m. acutely short of breath that responded to a stat DuoNeb. Overall the patient tells me she is breathing worse than yesterday. She has no rest shortness of breath but shortness of breath whenever she moves. She has minimal phlegm production today. When I enter the room she was on 6 L 97% And I decreased her to 4 L nasal cannula her saturations were 93%. White blood cell count 10.3, creatinine 0.84, BNP mildly decreased to 3720. Yesterday she diuresed 966 mL and cumulative she is positive 104 mL since admission. Her weight today is 55.4. 11/19/2024: Patient tells me she feels much better today. She says that her breathing is 75% back to her normal. Her cough is improved and her phlegm production has improved and is clear now. She has not been out of bed yet. currently she is on 3 L nasal cannula saturations 90%. She is afebrile. White blood cell count 13.3, creatinine 0.84, BNP 3680. Yesterday she was positive 30 mL, cumulative she is positive 24 mL since admission. Her weight today is 55.2. She tells me the vest therapy provides her no benefit. She tells me the Mucomyst does not help her expectorate any phlegm. 11/20/2024: Patient tells me she continues to improve. States she is breathing 80% back to her normal. Her cough is improved with no flow hemoptysis. She has minimal phlegm production. She is afebrile. Currently she is on 3 L nasal cannula saturations 92%. White blood cell count 16.1, creatinine 0.77. Her weight today is 60.4. Patient had an overnight oximetry on 3 L nasal cannula with recording duration of 7 hours and 40 minutes. Average saturation 90%. Low saturation 75%. Time with saturation less than or equal to 88% was 144 minutes. Oxygen desaturation 1.3. All of the desaturation time occurred after an abrupt decrease at 1:30 a.m. and the patient tells me her oxygen did come off last night. Patient tells me she is ready to go home today. DATA: 11/15/24: Summary 1. Complete two-dimensional, color flow and Doppler transthoracic echocardiogram is performed. 2. Left ventricular chamber dimension is normal. 3. Left ventricular systolic function is normal, estimated at 60-65. 4. There is mild concentric increased left ventricular wall thickness. 5. The left ventricular diastolic function is grade I diastolic dysfunction. 6. E/e' 9 is minimally elevated. 7. Left atrial chamber dimension is moderately enlarged. 8. There is mild aortic valve sclerosis. 9. The mitral valve has a mildly calcified annulus. 10. There is trace mitral valve regurgitation. Right Ventricle Right ventricular chamber dimension is normal. Right ventricular systolic function is normal. Right Atria Right atrial chamber dimension is normal. Tricuspid Valve There is trace tricuspid valve regurgitation. RVSP is not calculated due to an inadequate TR jet. 11/13/2024: CTA chest PE protocol History: 73 years Female with . shortness of breath . Comparison: October 20, 2024 Findings: PULMONARY ARTERIES: No pulmonary embolus. VISUALIZED THORACIC INLET: Normal. MEDIASTINUM: Aorta/coronary arteries: Mild atheromatous disease. Heart/other: The heart is not enlarged. Lymph nodes: Prevascular lymphadenopathy is seen with the largest measures 1.6 cm. Bilateral hilar lymphadenopathy more in the right side. Subcarinal calcified lymph notes. Calcified lymph node in the left hilum. LUNGS: Emphysematous changes of the lungs. A mass is seen in the right lower lobe measuring 4.1 x 2.9 cm. Further evaluation advised. Smaller nodule is seen medially in the right lower lobe measuring 1.4 cm. Minimal interstitial opacification is seen in the right middle lobe and right upper lobe. Interstitial opacification also seen around the mass in the right lower lobe. Minimal interstitial opacification the left lung base. Right pleural effusion. No pulmonary nodules . No pneumothorax. VISUALIZED UPPER ABDOMEN: Proximal abdominal aorta measures 3 cm. Stent is seen in the left renal artery. Status post cholecystectomy. Slightly prominent pancreatic duct. Prominent CBD measuring 1.1 cm.. Otherwise, the visualized upper abdomen is normal. MUSCULOSKELETAL: Soft tissues: The superficial soft tissues are normal. Bones: Age appropriate degenerative changes of the spine. Increased kyphosis. Osteopenia of the bones. IMPRESSION: 1. No pulmonary embolism. 2. Mass measuring 4.1 x 2.9 cm in the right lower lobe. Further evaluation advised. Smaller nodule is seen adjacent to this mass in the right lower lobe area. 3. interstitial and alveolar opacification in the right middle , lower and upper lobes and left lower lobe suggestive of pneumonitis. 4. Extensive emphysematous changes seen bilaterally. 5. Right hilar and mediastinal lymphadenopathy. 6. The proximal abdominal aorta measures 3 cm. 07/10/2024: EXAMINATION: PET skull to mid thigh DATE: 07/10/2024 12:18 INDICATION: Malignant neoplasm of lung. TECHNIQUE: Blood glucose level was 93 mg/dL. 10.966 mCi of 18-fluorodeoxyglucose (18-FDG) was administered i.v. Low dose computed tomography (CT) images were acquired from the base of the brain to the proximal thighs for attenuation correction and anatomic localization. Automated exposure control was employed. Dose-length product (DLP) was 805 mGy-cm. Positron emission tomography (PET) images were acquired in the same distribution. COMPARISON: PET/CT 06/01/2022, chest CT 06/18/2024, 05/07/23 FINDINGS: Head/neck: There are likely changes of ocular lens replacement surgeries. There are scattered areas of low attenuation in the cerebral white matter, likely chronic small vessel ischemic disease. 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 There are no pathologically enlarged lymph nodes. Chest: There is a stent in proximal left subclavian artery. There is severe emphysema. A calcified left lung nodule and calcified left hilar and mediastinal lymph nodes are consistent with old granulomatous disease. There are airspace opacities in the lower lobes, right worse than left, with increased activity. There is increased activity in normal-sized and borderline-enlarged right hilar and mediastinal lymph nodes. No pleural effusion. The heart size is normal. There are coronary artery calcifications. No pericardial effusion. Abdomen/pelvis/proximal thighs: The liver is normal. There are changes of cholecystectomy. Calcifications in the spleen are consistent with old granulomatous disease. The pancreas, adrenal glands, and kidneys are normal. There are stents in the left bilateral common iliac arteries and left external iliac artery. There are no dilated loops of bowel. 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 There is a stent in left renal artery. There are no pathologically enlarged lymph nodes. There is no free intraperitoneal fluid. There is no osseous malignancy. There is subcutaneous old fat necrosis in right buttock. IMPRESSION: 1. Airspace opacities with increased activity in the lower lobes, right worse than left, consistent with radiation pneumonitis. 2. Severe emphysema. 3. Increased activity in normal-sized and borderline-enlarged right hilar and mediastinal lymph nodes, which may be reactive or metastatic disease. 06/18/2024: EXAMINATION: CT diagnostic chest w con INDICATION: C34.31 - Malignant neoplasm of lower lobe, right bronchus... COMPARISON: 02/22/2024 and 09/11/2022 FINDINGS: Severe emphysema with biapical pleural-parenchymal scarring. Calcified nodule at the left apex along with calcified left hilar and mediastinal lymph nodes consistent with old granulomatous disease. There is septal line thickening bilaterally basilar lower lobes, right middle lobe and lingula. Interval increase in size of a high attenuation potentially enhancing 1.7 x 1.4 cm spiculated nodule in the superior segment of the right lower lobe which measured approximately 1.2 x 1.1 cm on 12/13/2023. No significant interval change in a more caudal and lower density peripheral bandlike region of consolidation extending approximately 6 cm medial laterally measuring up to 1.5 cm in thickness likely related to changes of chronic radiation pneumonitis. No pleural effusion. Heart size is normal. Atherosclerotic coronary artery calcific location. No pericardial effusion. Thoracic aorta is normal in caliber with no dissection. There is stenting at the origin of the left subclavian artery. No significant change since 09/11/2022 in mild right hilar lymphadenopathy which favors reactive or metastatic lymph nodes. No other pathologically enlarged thoracic lymphadenopathy. A few calcified splenic granulomata. Mild to moderate thoracic spondylosis with bridging osteophytes at multiple levels consistent with diffuse idiopathic skeletal hyperostosis (DISH). IMPRESSION: 1. Enlargement of a now 1.7 x 1.4 cm higher attenuation, likely enhancing spiculated nodule in the superior segment of the right lower lobe suspicious for progression of primary lung cancer. 2. No interval change in a more caudal peripheral band of consolidation in the right lower lobe likely related to chronic radiation fibrosis for reported prior treatment of an earlier mildly FDG avid nodule at this location suspicious for lung cancer. 3. Severe emphysema. 4. Mild right hilar lymphadenopathy unchanged since 09/11/2022 which in the absence of interval treatment would favor reactive over metastatic lymphadenopathy. 11/08/2023: Echo Summary 1. Left ventricular chamber dimension is normal. 2. Left ventricular systolic function is normal, estimated at 65-70%. 3. The left ventricular diastolic function is grade I diastolic dysfunction. 4. Global longitudinal strain is abnormal at -15 %. 5. Right ventricular systolic function is normal. 6. Left atrial chamber dimension is mildly enlarged. 7. There is mild tricuspid valve regurgitation. 8. There is mild pulmonic regurgitation. Left Ventricle Left ventricular chamber dimension is normal. Left ventricular systolic function is normal, estimated at 65-70%. There is no increased left ventricular wall thickness. The left ventricular diastolic function is grade I diastolic dysfunction. Global longitudinal strain is abnormal at -15 %. Right Ventricle Right ventricular chamber dimension is normal. Right ventricular systolic function is normal. Left Atria Left atrial chamber dimension is mildly enlarged. Right Atria Right atrial chamber dimension is normal. Atrial Septum Intact interatrial septum visualized by color flow imaging. Review of Systems Constitutional: Constitutional: Reports no additional constitutional complaints Eyes: Eyes: Reports no additional eye complaints ENT: Reports system reviewed and no additional complaints, except as documented Cardiovascular: Cardiovascular: Reports no additional cardiovascular complaints Respiratory: Respiratory: Reports no additional respiratory complaints Gastrointestinal: Gastrointestinal: Reports no additional gastrointestinal complaints Musculoskeletal: Musculoskeletal: Reports no additional musculoskeletal complaints Neurologic: Reports system reviewed and no additional complaints, except as documented Psychiatric: Psychiatric: Reports no additional psychiatric complaints Endocrine: Endocrine: Reports no additional endocrine complaints Hematologic/Lymphatic: Hematologic/Lymphatic: Reports no additional hematologic/lymphatic complaints Allergic/Immunologic: Allergic/Immunologic: Reports no additional allergic/immunologic complaints Exam Const: General: cooperative and comfortable Orientation/consciousness: oriented to person, oriented to place and oriented to time Other: Ill-appearing HENMT: Head: normal to inspection Ears: hearing grossly normal bilaterally Eyes: General: appearance normal, both eyes and all related structures Neck: Neck: normal visual inspection Chest: Chest palpation & inspection: normal inspection of the chest Resp: Effort & Inspection: normal respiratory effort and able to speak in complete sentences Auscultation: crackles, no rales, no rhonchi, no wheezes and lung sounds not diminished Other: few crackles bases Cardio: Jugular venous distension: no JVD GI: Inspection: normal to inspection Skin: General skin exam: normal color Neuro: General: oriented to person, oriented to place and oriented to time Extrem: General: normal to inspection Psych: Appearance: grossly normal Objective Data Vital Signs Vital Signs: Vital Signs - 24 hr 11/19/24 14:00 11/19/24 14:57 11/19/24 14:57 Temperature 36.4 C Pulse Rate 68 62 Respiratory Rate 18 18 18 Blood Pressure 175/55 H Pulse Oximetry 91 Oxygen Delivery Oxygen Flow Rate Fraction of Inspired Oxygen 11/19/24 20:00 11/19/24 20:11 11/19/24 20:14 Temperature 36.2 C L Pulse Rate 66 66 Respiratory Rate 16 Blood Pressure 153/56 H Pulse Oximetry 93 93 Oxygen Delivery High Flow Nasal Cannula Oxygen Flow Rate 3 Fraction of Inspired Oxygen 11/19/24 21:09 11/19/24 21:10 11/20/24 05:39 Temperature 37.6 C Pulse Rate 59 L 59 L 61 Respiratory Rate 20 20 16 Blood Pressure 160/41 H Pulse Oximetry 92 91 Oxygen Delivery Nasal Cannula Oxygen Flow Rate 3 Fraction of Inspired Oxygen 32 11/20/24 08:07 11/20/24 08:50 11/20/24 08:50 Temperature Pulse Rate 66 Respiratory Rate 18 Blood Pressure Pulse Oximetry 92 Oxygen Delivery Nasal Cannula Nasal Cannula Oxygen Flow Rate 3 3 Fraction of Inspired Oxygen 11/20/24 09:00 11/20/24 09:27 11/20/24 09:30 Temperature Pulse Rate 62 84 Respiratory Rate 18 Blood Pressure Pulse Oximetry 90 Oxygen Delivery Nasal Cannula Oxygen Flow Rate 3 Fraction of Inspired Oxygen 11/20/24 09:58 Temperature Pulse Rate Respiratory Rate Blood Pressure Pulse Oximetry Oxygen Delivery Nasal Cannula Oxygen Flow Rate 3 Fraction of Inspired Oxygen Intake/Output Intake/Output: Intake & Output 11/17/24 11/18/24 11/19/24 11/20/24 23:59 23:59 23:59 23:59 Intake Total 1084 1180 1060 50 Output Total 2050 1150 800 200 Balance -966 30 260 -150 Meds/Results Medications: Active Medications Generic Name Dose Route Start Last Admin Trade Name Jenny PRN Reason Stop Dose Admin Acetaminophen 650 mg 11/13/24 22:45 11/18/24 21:11 Acetaminophen 325 Mg Tablet PO 650 mg Q6H PRN Administration Mild Pain (1-3) or Fever Albuterol/Ipratropium 3 ml 11/14/24 08:00 11/20/24 08:55 Ipratropium 0.5 Mg/Albuterol Sulfate 2.5 Mg Ampul.Neb 3 Ml INHALATION Not Given Q6HRT LUCY Atorvastatin Calcium 40 mg 11/14/24 09:00 11/20/24 09:28 Atorvastatin 40 Mg Tablet PO 40 mg DAILY LUCY Administration Budesonide 0.5 mg 11/14/24 20:00 11/20/24 08:50 Budesonide Respule Neb 0.5 Mg/2 Ml Amp INHALATION 0.5 mg Q12HRT LUCY Administration Buspirone HCl 10 mg 11/16/24 17:08 11/19/24 20:18 Buspirone Hcl 10 Mg Tablet PO 10 mg Q12HR PRN Administration Anxiety Carvedilol 12.5 mg 11/15/24 21:00 11/20/24 09:27 Carvedilol 12.5 Mg Tablet PO 12.5 mg Q12HR LUCY Administration Desmopressin Acetate 0.2 mg 11/14/24 21:00 11/19/24 20:13 Desmopressin Acetate 0.1 Mg Tablet PO 0.2 mg HS LUCY Administration Docusate Sodium 100 mg 11/20/24 10:15 Docusate Sodium 100 Mg Capsule PO Q12HR LUCY Doxycycline Hyclate 100 mg 11/14/24 09:00 11/20/24 09:27 Doxycycline Hyclate 100 Mg Tablet PO 11/20/24 21:01 100 mg Q12HR LUCY Administration Escitalopram Oxalate 10 mg 11/14/24 21:00 11/19/24 20:14 Escitalopram Oxalate 10 Mg Tablet PO 10 mg HS LUCY Administration Furosemide 40 mg 11/20/24 09:00 11/20/24 09:30 Furosemide 40 Mg Tablet PO 40 mg QAM LUCY Administration Guaifenesin 1,200 mg 11/14/24 09:00 11/20/24 09:28 Guaifenesin 12 Hr 600 Mg Tabcr PO 1,200 mg Q12HR LUCY Administration Hydralazine HCl 10 mg 11/15/24 14:58 11/15/24 20:27 Hydralazine Hcl 20 Mg/Ml Vial IV PUSH 10 mg Q8H PRN Administration Hypertension systolic >180 Cefepime HCl 2 gm in 50 mls @ 100 mls/hr 11/14/24 03:00 11/20/24 03:11 Maxipime 2 Gm/Ns 50 Ml IVPB 11/20/24 15:29 Infused Q12H LUCY Infusion Lisinopril 40 mg 11/14/24 09:00 11/20/24 09:28 Lisinopril 20 Mg Tablet PO 40 mg QAM LUCY Administration Melatonin 5 mg 11/14/24 21:00 11/19/24 20:15 Melatonin 5 Mg Tablet PO 5 mg QHS LUCY Administration Metronidazole 500 mg 11/18/24 14:00 11/20/24 06:20 Metronidazole 500 Mg Tablet PO 11/20/24 22:01 500 mg Q8HR LUCY Administration Nicotine 1 patch 11/16/24 10:00 11/20/24 09:28 Nicotine (*Pbkc) 21 Mg Patch TRANSDERM Not Given DAILY [facility] Polyethylene Glycol 17 gm 11/20/24 10:15 Polyethylene Glycol 3350 17 Gm Powd.Pack PO QAM LUCY Prednisone 40 mg 11/19/24 09:40 11/20/24 09:27 Prednisone 20 Mg Tablet PO 40 mg DAILY@0800 LUCY Administration Radiology Results: ITS Impressions Chest CTA 11/13/24 21:07 IMPRESSION: 1. No pulmonary embolism. 2. Mass measuring 4.1 x 2.9 cm in the right lower lobe. Further evaluation advised. Smaller nodule is seen adjacent to this mass in the right lower lobe area. 3. interstitial and alveolar opacification in the right middle , lower and upper lobes and left lower lobe suggestive of pneumonitis. 4. Extensive emphysematous changes seen bilaterally. 5. Right hilar and mediastinal lymphadenopathy. 6. The proximal abdominal aorta measures 3 cm. Chest X-Ray 11/15/24 21:22 IMPRESSION: Severe panlobular emphysematous disease without focal infiltrate or effusion. Redemonstration of a right lower lobe asymmetry by secondary signs on frontal view. Labs Labs: Laboratory Results - last 24 hr 11/14/24 11/20/24 02:51 06:13 WBC 16.1 H RBC 4.16 L Hgb 12.5 Hct 39.3 MCV 94.5 MCH 30.0 MCHC 31.8 L RDW 15.2 H Plt Count 180 MPV 9.6 Sodium 136 L Potassium 3.6 Chloride 108 H Carbon Dioxide 23 Anion Gap 5 BUN 35 H Creatinine 0.77 Estim Creat Clear Calc 50 Estimated GFR > 60 Glucose 110 Calcium 7.9 L Total Bilirubin 0.6 AST 27 ALT 17 Alkaline Phosphatase 90 NT-Pro-B Natriuret Pep 4060 H Total Protein 5.9 L Albumin 2.9 L Mycoplasma pneumon IgM 136
--- NOTE | 2024-11-20 11:05 | PM.IMPN ---
Progress Note: A&P Assessment and Plan (1) Acute respiratory failure with hypoxia: Code(s): J96.01 - Acute respiratory failure with hypoxia Status: Acute Assessment and Plan: Pt presented to the ED for evaluation of increased SOB, cough, increased sputum, and chills that has worsened over the last several days. -Chest CT shows an increase in a right lower lobe mass concerning for malignant as well as findings of pneumonia. -->She received azithromycin, meropenem, and vancomycin in the ED. -->Her antibiotics will be changed to cefepime (patient reports anaphylaxis to penicillin in the ; cefepime has a different structure and is considered safe to prescribed), doxycycline, metronidazole, and vancomycin to cover possible postobstructive pneumonia. -Continue scheduled bronchodilators. -Andrest Mucinex ordered to help mobilize secretions. -->Sputum culture pending, container at bedside and reminded her about the need for it. -She is currently on 3 L and admits that she was told a couple of months ago that she needs oxygen at home however she called the company and had them remove attending from her home as she did not know how to use it. She will need a home oxygen evaluation prior to discharge. 11/14: Pt still c/o of SOB but reports that she feels 100% than yesterday but I would feel better if I didn't have all this sputum. -Plan to continue with above plan as well as serial AM labs and O2 assessment -Pending PULM consult, see below. 11/15: Bump in WBC over night, will continue to monitor, re-imaging may be needed if continues to climb. Continue IV abx and breathing tx. CRP continues to be elevated but is down trending. Per nursing, pt went up to 8L of O2 overnight due to increased need and has been on since. Asked nursing to trial titrate down to baseline 3L NC to see how she does. Per PULM yesterday, pt desatted while he was in room due to mucus plug, may be related again last night? Pt appears to be less congested today. 11/16: WBC starting to down trend once again, will continue to monitor daily labs. Continue IV abx and breathing tx. Per chart, pt needed an increase of O2 overnight (was placed on 9L NC) and the provider overnight ordered an acute CXR which looks similar to prior. Pt reports that she had an anxiety attack last night, this may be why this increase in O2 need occurred. Pt titrated back down to 3L NC by me today at the bedside and she maintained an O2 of 92%; O2 goal of 90-94%. No wheezing still upon my exam today, but lungs are still sounding very coarse throughout. 11/17: Pulm rounded again today is going to make a few adjustments: -Chest therapy, Solumedrol 40mg Q6, he will continue to see the pt, please see pulm note. -Pt reports having difficulty keeping up breathing zavala. Her BNP is elevated since admission, will give 40mg IV Lasix today to see if it helps with her breathing. Continue to trend BNP levels 11/18: WBC down trending once again. Pulm rounding when I rounded. Discussed no new plans, continue with chest therapy, steroids, and assessment of breathing. Pt on 4L NC now satting 95% and stable. No wheezing. Switched from IV Flagyl to oral Flagyl today. 11/19: WBC 13.1. Pulmonary plan apnea study tonight on 3 liters. Acetylcysteine discontinued. Steroids switched to oral. Continue chest therapy. Cefepime 2 gram IVPB q12, Doxycycline 100 mg PO q 12, and Metronidazole 500 mg PO q 8. 02@3LNC with Sa02 90%. No wheezing. BNP 3680. Duonebs q 6. Guaifenesin 1,200 mg PO q 12. PT/OT. 11/20: WBC 16.1. Patient apnea link showed saturation less than or equal to 88% was 144 minutes. Oxygen desaturation 1.3. Patient to wear oxygen at 4 liters nasal cannula at night. BNP 4060, increased Furosemide 40 mg PO daily. (2) Postobstructive pneumonia: Code(s): J18.9 - Pneumonia, unspecified organism Status: Acute Assessment and Plan: See above. (3) Right lower lobe lung mass: Code(s): R91.8 - Other nonspecific abnormal finding of lung field Status: Acute Assessment and Plan: Chest CTs performed in June and more recently October 2024 show a continued increase in the RLL nodule concerning for malignancy. She was scheduled for a CT-guided biopsy yesterday however she was hypoxic on arrival and the biopsy was canceled. She was then sent to the emergency department with plans for admission however she left against medical advice. -Continue to hold clopidogrel and she will be NPO after midnight for possible CT-guided lung biopsy tomorrow depending on the radiologist schedule. 11/14: -CT biopsy of lung ordered for today but per CT, unable to do if pt is actively using O2. Per nursing, pt does not use O2 at home, but, per hospitalist note, pt was told a couple of months ago that she needs O2 at home however she called the company and had them remove O2 from her home as she did not know how to use it. She will need a home oxygen evaluation prior to discharge. -->Upon interview today, pt states that she was not given any direction on how to work home O2, that is why she has not been using it -->Encouraged nursing to try to downtrend pt O2 while inpt to obtain biopsy. -->Pending PULM consult and appreciate their recommendations for lung mass work-up Pulm, Dr. Bañuelos, saw pt and updated me on plan, please see his thorough note. -Per pt report she is still smoking 2 ppd, 118 year hx. Pt recently went to PCP office for a cough and congestion on 11/05 and at that time her O2 sat was charted as 75%, pt was given Zpak and steroids and their of those tx worked. Also reporting home sats of 81-91% per pulse ox. Pt was given O2 delivered to her home in June 2024 and set all of the O2 back. -Goals of O2 90-94% -Plan to D/C vanc due to MRSA swab being negative, add echo, add on CPR and procal for AM labs, and add Mucomyst 200mg Q6 to help with sputum, and a resp pathogen panel. -Plan to continue with no systemic steroids, recs for adding Solumedrol 40mg Q6 x1 day and change to prednisone for the remaining x4 days if develops wheezing. -Pt will require higher level of care for biopsy due to O2 use, but declines going to [facility]. -I updated Dr. Palomo (pts onc) about her not being able to get the biopsy performed on 11/12 and the need for higher level of care for this but refusing transfer to [facility]. He recs f/u in his office to plan further intervention / treatment. -->Has been treated by Dr. Palomo in the past with radiation and the last biopsy that was attempted was in 2022 and it came back inconclusive Will continue to treat PNA and COPD exac with cefe, Doxy, and Flagyl for gram neg and abnormal PNA coverage. Pending ECHO, AM labs, VS, and breathing status. 11/15: Reiterated plan for onc f/u outpt to pt today, told her that I spoke to Dr. Palomo and this was his recommendation for further management. Pt agreeable with the plan. ECHO resulted unremarkable today. 11/17: Reiterated plan for onc f/u outpt to pt today, told her that I spoke to Dr. Palomo and this was his recommendation for further management. Pt agreeable with the plan. 11/18: Once again reiterated plan for onc f/u outpt to pt today, told her that I spoke to Dr. Palomo and this was his recommendation for further management. Pt agreeable with the plan. (4) Chronic obstructive pulmonary disease: Code(s): J44.9 - Chronic obstructive pulmonary disease, unspecified Status: Acute Assessment and Plan: Continue home meds, abx for PNA ordered. Duoneb q 6. Guaifenesin 1,200 mg PO BID. Prednisone 40 mg PO daily. (5) Hypertension: Code(s): I10 - Essential (primary) hypertension Status: Acute Assessment and Plan: Blood pressures have been running high and will be monitored closely for possible adjustments in medication depending on how she trends. -Her home medications have been reviewed and resumed as appropriate. 11/15: Pt BPs still running high, systolic 150/170. Increased home Coreg from 6.25mg BID to 12.5mg BID. Also ordered hyral PRN. 11/16: HTN baseline and a bit higher overnight, pt reports having a panic attack. Pt to receive second dose of increased coreg of 12.5 BID this AM, will continue to monitor. x1 dose of hydral was used last night. 11/17: Pt HTN continue to be moderately elevated, BNP today elevated at to 4050 from 1720 on 11/12, will give a x1 dose of Lasix 40mg today IV to help alleviate sx and BP. Will continue to monitor BNP daily and BP. Kidney labs WDL. 11/18: HTN has been more stable over the last 24 hours, will continue to monitor BNP and treat with Lasix. Continue with daily labs 11/19: Blood pressure 165/58. Coreg 12.5 mg PO BID, Lisinopril 40 mg PO QAM, and Furosemide 20 mg PO qam. 11/20: Blood pressure 160/41. Coreg 12.5 mg PO BID, Lisinopril 40 mg PO QAM, and Furosemide 20 mg PO qam. (6) Anxiety: Code(s): F41.9 - Anxiety disorder, unspecified Status: Acute Assessment and Plan: Restarted home meds of escitalopram -Started Buspar for breakthrough anxiety on 11/16 BID PRN, room to increase to TID if needed -No benzos recommended due to O2 need and resp status (7) Weakness: Code(s): R53.1 - Weakness Status: Acute Assessment and Plan: PT/OT. Patient will need SNF for rehab, patient agreeable. Care coordination working on placement. Subjective Date/time seen: 11/20/24 11:05 Interval history: Patient sitting up in bed with family at bedside. Patient reports that she feels weak. Patient is agreeable to go to rehab. Patient denies chest pain, palpitations, shortness of breath, headaches, dizziness, nausea, or vomiting. Coughing up clear sputum. Review of Systems Review of Systems: All systems reviewed & are unremarkable except as noted in HPI and below Exam Const: General: comfortable and no acute distress Resp: Effort & Inspection: normal respiratory effort Auscultation: crackles Cardio: Rate: regular rate Rhythm: regular rhythm GI: GI Palp: Yes Soft to palpation Auscultation: normal bowel sounds Neuro: Speech: normal speech Extrem: General: no pedal edema Psych: Mental Status: mental status grossly normal Affect: normal affect Objective Data Vital Signs Vital Signs: Vital Signs - 24 hr 11/19/24 14:00 11/19/24 14:57 11/19/24 14:57 Temperature 97.6 F Pulse Rate 68 62 Respiratory Rate 18 18 18 Blood Pressure 175/55 H Pulse Oximetry 91 Oxygen Delivery Oxygen Flow Rate Fraction of Inspired Oxygen 11/19/24 20:00 11/19/24 20:11 11/19/24 20:14 Temperature 97.1 F L Pulse Rate 66 66 Respiratory Rate 16 Blood Pressure 153/56 H Pulse Oximetry 93 93 Oxygen Delivery High Flow Nasal Cannula Oxygen Flow Rate 3 Fraction of Inspired Oxygen 11/19/24 21:09 11/19/24 21:10 11/20/24 05:39 Temperature 99.6 F Pulse Rate 59 L 59 L 61 Respiratory Rate 20 20 16 Blood Pressure 160/41 H Pulse Oximetry 92 91 Oxygen Delivery Nasal Cannula Oxygen Flow Rate 3 Fraction of Inspired Oxygen 32 11/20/24 08:07 11/20/24 08:50 11/20/24 08:50 Temperature Pulse Rate 66 Respiratory Rate 18 Blood Pressure Pulse Oximetry 92 Oxygen Delivery Nasal Cannula Nasal Cannula Oxygen Flow Rate 3 3 Fraction of Inspired Oxygen 11/20/24 09:00 11/20/24 09:27 11/20/24 09:30 Temperature Pulse Rate 62 84 Respiratory Rate 18 Blood Pressure Pulse Oximetry 90 Oxygen Delivery Nasal Cannula Oxygen Flow Rate 3 Fraction of Inspired Oxygen 11/20/24 09:58 Temperature Pulse Rate Respiratory Rate Blood Pressure Pulse Oximetry Oxygen Delivery Nasal Cannula Oxygen Flow Rate 3 Fraction of Inspired Oxygen Intake/Output Intake/Output: Intake & Output 11/17/24 11/18/24 11/19/24 11/20/24 23:59 23:59 23:59 23:59 Intake Total 1084 1180 1060 50 Output Total 2050 1150 800 200 Balance -966 30 260 -150 Meds/Results Medications: Active Medications Generic Name Dose Route Start Last Admin Trade Name Freq PRN Reason Stop Dose Admin Acetaminophen 650 mg 11/13/24 22:45 11/18/24 21:11 Acetaminophen 325 Mg Tablet PO 650 mg Q6H PRN Administration Mild Pain (1-3) or Fever Albuterol/Ipratropium 3 ml 11/14/24 08:00 11/20/24 08:55 Ipratropium 0.5 Mg/Albuterol Sulfate 2.5 Mg Ampul.Neb 3 Ml INHALATION Not Given Q6HRT LUCY Atorvastatin Calcium 40 mg 11/14/24 09:00 11/20/24 09:28 Atorvastatin 40 Mg Tablet PO 40 mg DAILY LUCY Administration Budesonide 0.5 mg 11/14/24 20:00 11/20/24 08:50 Budesonide Respule Neb 0.5 Mg/2 Ml Amp INHALATION 0.5 mg Q12HRT LUCY Administration Buspirone HCl 10 mg 11/16/24 17:08 11/19/24 20:18 Buspirone Hcl 10 Mg Tablet PO 10 mg Q12HR PRN Administration Anxiety Carvedilol 12.5 mg 11/15/24 21:00 11/20/24 09:27 Carvedilol 12.5 Mg Tablet PO 12.5 mg Q12HR LUCY Administration Desmopressin Acetate 0.2 mg 11/14/24 21:00 11/19/24 20:13 Desmopressin Acetate 0.1 Mg Tablet PO 0.2 mg HS LUCY Administration Docusate Sodium 100 mg 11/20/24 10:15 Docusate Sodium 100 Mg Capsule PO Q12HR LUCY Doxycycline Hyclate 100 mg 11/14/24 09:00 11/20/24 09:27 Doxycycline Hyclate 100 Mg Tablet PO 11/20/24 21:01 100 mg Q12HR LUCY Administration Escitalopram Oxalate 10 mg 11/14/24 21:00 11/19/24 20:14 Escitalopram Oxalate 10 Mg Tablet PO 10 mg HS LUCY Administration Furosemide 40 mg 11/20/24 09:00 11/20/24 09:30 Furosemide 40 Mg Tablet PO 40 mg QAM LUCY Administration Guaifenesin 1,200 mg 11/14/24 09:00 11/20/24 09:28 Guaifenesin 12 Hr 600 Mg Tabcr PO 1,200 mg Q12HR LUCY Administration Hydralazine HCl 10 mg 11/15/24 14:58 11/15/24 20:27 Hydralazine Hcl 20 Mg/Ml Vial IV PUSH 10 mg Q8H PRN Administration Hypertension systolic >180 Cefepime HCl 2 gm in 50 mls @ 100 mls/hr 11/14/24 03:00 11/20/24 03:11 Maxipime 2 Gm/Ns 50 Ml IVPB 11/20/24 15:29 Infused Q12H LUCY Infusion Lisinopril 40 mg 11/14/24 09:00 11/20/24 09:28 Lisinopril 20 Mg Tablet PO 40 mg QAM LUCY Administration Melatonin 5 mg 11/14/24 21:00 11/19/24 20:15 Melatonin 5 Mg Tablet PO 5 mg QHS LUCY Administration Metronidazole 500 mg 11/18/24 14:00 11/20/24 06:20 Metronidazole 500 Mg Tablet PO 11/20/24 22:01 500 mg Q8HR LUCY Administration Nicotine 1 patch 11/16/24 10:00 11/20/24 09:28 Nicotine (*Pbkc) 21 Mg Patch TRANSDERM Not Given DAILY [facility] Polyethylene Glycol 17 gm 11/20/24 10:15 Polyethylene Glycol 3350 17 Gm Powd.Pack PO QAM [facility] Prednisone 40 mg 11/19/24 09:40 11/20/24 09:27 Prednisone 20 Mg Tablet PO 40 mg DAILY@0800 [facility] Administration Radiology Results: ITS Impressions Chest CTA 11/13/24 21:07 IMPRESSION: 1. No pulmonary embolism. 2. Mass measuring 4.1 x 2.9 cm in the right lower lobe. Further evaluation advised. Smaller nodule is seen adjacent to this mass in the right lower lobe area. 3. interstitial and alveolar opacification in the right middle , lower and upper lobes and left lower lobe suggestive of pneumonitis. 4. Extensive emphysematous changes seen bilaterally. 5. Right hilar and mediastinal lymphadenopathy. 6. The proximal abdominal aorta measures 3 cm. Chest X-Ray 11/15/24 21:22 IMPRESSION: Severe panlobular emphysematous disease without focal infiltrate or effusion. Redemonstration of a right lower lobe asymmetry by secondary signs on frontal view. Labs Labs: Laboratory Results - last 24 hr 11/14/24 11/20/24 02:51 06:13 WBC 16.1 H RBC 4.16 L Hgb 12.5 Hct 39.3 MCV 94.5 MCH 30.0 MCHC 31.8 L RDW 15.2 H Plt Count 180 MPV 9.6 Sodium 136 L Potassium 3.6 Chloride 108 H Carbon Dioxide 23 Anion Gap 5 BUN 35 H Creatinine 0.77 Estim Creat Clear Calc 50 Estimated GFR > 60 Glucose 110 Calcium 7.9 L Total Bilirubin 0.6 AST 27 ALT 17 Alkaline Phosphatase 90 NT-Pro-B Natriuret Pep 4060 H Total Protein 5.9 L Albumin 2.9 L Mycoplasma pneumon IgM 136 Quality VTE Prophylaxis VTE prophylaxis: mechanical ordered
--- NOTE | 2024-11-20 11:07 | PCRCNOTE ---
Home O2 eval not needed, patient is going SNF. All O2 needs will be addressed with nursing staff at facility
[2024-11-20] MEDS: DOCUSATE SODIUM 100 MG CAPSULE PO ×2 (11:32→20:59)
[2024-11-20] MEDS: polyethylene glycoL 3350 17 GM POWD.PACK PO (11:32)
[2024-11-20] MEDS: ESCITALOPRAM OXALATE 10 MG TABLET PO (20:58)
[2024-11-20] MEDS: DESMOPRESSIN ACETATE 0.1 MG TABLET 0.2 MG PO (20:58)
[2024-11-20] MEDS: MELATONIN 5 MG TABLET PO (20:59)
[2024-11-21] VITALS (8 sets, daily range): BP systolic 131–151; BP diastolic 50–56; PULSE 62–86; RESP 16–20; TEMP 36.5–36.6; O2SAT 92–98
[2024-11-21 05:39] LABS: Hematocrit 37.6 % (37.0-47.0); Hemoglobin 11.9 g/dL (12.0-15.0); Mean Corpuscular HGB Conc 31.6 g/dl (32-36); Mean Corpuscular Volume 94.7 fl (80-100); Mean Platelet Volume 9.7 fl (7.4-10.4); Platelet Count Result 128 k/mm3 (150-375); Red Blood Count 3.97 M/mm3 (4.2-5.4); Red Cell Distribution Width 14.9 % (11.5-14.5); White Blood Count 12.2 K/mm3 (4.5-10.0)
--- NOTE | 2024-11-21 05:45 | PCRCNOTE ---
Patient did not want to be awakened for 0200 updraft treatment. Treatment will resume @ 0800.
[2024-11-21 05:54] LABS: Alanine Aminotransferase 17 U/L (6-35); Albumin Level 2.8 g/dL (3.5-5.1); Alkaline Phosphatase 85 U/L (38-126); Anion Gap 3 mmol/L (4-12); Aspartate Amino Transferase 25 U/L (14-36); Bilirubin,Total 0.6 mg/dL (0.2-1.3); Blood Urea Nitrogen 27 mg/dL (7-17); Calcium 7.9 mg/dL (8.4-10.2); Carbon Dioxide 27 mmol/L (22-30); Chloride 106 mmol/L (98-107); Estimated CRCL calculation 49 ml/min; Estimated Glomerular Filt Rate > 60; Glucose 99 mg/dL (65-110); Potassium 3.9 mmol/L (3.4-5.0); Sodium 136 mmol/L (137-145); Total Protein 5.7 g/dL (6.3-8.2)
[2024-11-21 06:47] LABS: NT Pro B Type Natriuretic Pept 3940 pg/mL (19.9-100)
[2024-11-21] MEDS: BUDESONIDE RESPULE NEB 0.5 MG/2 ML AMP INHALATION (07:57)
[2024-11-21] MEDS: IPRATROPIUM 0.5 MG/ALBUTEROL SULFATE 2.5 MG AMPUL.NEB 3 ML INHALATION ×2 (07:57→13:56)
[2024-11-21] MEDS: ATORVASTATIN 40 MG TABLET PO (08:56)
[2024-11-21] MEDS: carvediloL 12.5 MG TABLET PO (08:56)
[2024-11-21] MEDS: FUROSEMIDE 40 MG TABLET PO (08:56)
[2024-11-21] MEDS: guaiFENesin 12 HR 600 MG TABCR 1200 MG PO (08:56)
[2024-11-21] MEDS: lisinopriL 20 MG TABLET 40 MG PO (08:56)
[2024-11-21] MEDS: DOCUSATE SODIUM 100 MG CAPSULE PO (08:56)
[2024-11-21] MEDS: polyethylene glycoL 3350 17 GM POWD.PACK PO (08:57)
[2024-11-21] MEDS: predniSONE 20 MG TABLET 40 MG PO (08:57)
--- NOTE | 2024-11-21 10:20 | PM.DS ---
DS: Admitting Diagnosis Discharge Date 11/21/2024 Admitting Diagnosis Shortness of breath DS: Discharge Diagnosis Discharge Diagnosis (1) Acute respiratory failure with hypoxia: Code(s): J96.01 - Acute respiratory failure with hypoxia Status: Acute (2) Postobstructive pneumonia: Code(s): J18.9 - Pneumonia, unspecified organism Status: Acute (3) Chronic obstructive pulmonary disease: Code(s): J44.9 - Chronic obstructive pulmonary disease, unspecified Status: Acute (4) Hypertension: Code(s): I10 - Essential (primary) hypertension Status: Acute (5) Weakness: Code(s): R53.1 - Weakness Status: Acute (6) Anxiety: Code(s): F41.9 - Anxiety disorder, unspecified Status: Acute (7) Malignant neoplasm of lower lobe, right bronchus or lung: Code(s): C34.31 - Malignant neoplasm of lower lobe, right bronchus or lung Status: Acute DS: Summary Hospital Course Hospital Course: This is a 73-year-old female smoker with history of chronic obstructive pulmonary disease, right lower lobe lung mass status post radiation in October 2022, coronary artery disease with history of stent, peripheral vascular disease with history of angioplasty and stents, carotid artery disease status post bilateral carotid endarterectomy, hyperlipidemia, gastroesophageal reflux disease, kidney stones, and osteoporosis who presented to the emergency department with complaints of shortness of breath. Chest CTs done in June and more recently last month show a continued increase in the right lower lobe nodule concerning for malignancy. She was scheduled for a CT-guided biopsy outpatient however she was hypoxic on arrival and the biopsy was canceled, patient sent to the emergency department. In the ED: Vital signs on arrival include a temperature of 99?, blood pressure 160/52, pulse 81, respiratory 20, SpO2 82% on room air. Labs were significant for WBC count of 14.5, sodium 135, potassium 3.3, lactic acid 1.7, CRP 15.1. She tested negative for influenza, RSV, COVID, and nasal MRSA. Chest CTA was negative for pulmonary embolism. A 4.1 x 2.9 cm mass was seen in the right lower lobe with findings suggestive of pneumonitis, right hilar and mediastinal lymphadenopathy, and emphysematous changes. She received azithromycin, meropenem, and vancomycin for possible postobstructive pneumonia. Chest CTA 11/13/24 21:07 IMPRESSION: 1. No pulmonary embolism. 2. Mass measuring 4.1 x 2.9 cm in the right lower lobe. Further evaluation advised. Smaller nodule is seen adjacent to this mass in the right lower lobe area. 3. interstitial and alveolar opacification in the right middle , lower and upper lobes and left lower lobe suggestive of pneumonitis. 4. Extensive emphysematous changes seen bilaterally. 5. Right hilar and mediastinal lymphadenopathy. 6. The proximal abdominal aorta measures 3 cm. Chest X-Ray 11/15/24 21:22 IMPRESSION: Severe panlobular emphysematous disease without focal infiltrate or effusion. Redemonstration of a right lower lobe asymmetry by secondary signs on frontal view. Echocardiogram 11/15/2024 Summary: 1. Complete two-dimensional, color flow and Doppler transthoracic echocardiogram is performed. 2. Left ventricular chamber dimension is normal. 3. Left ventricular systolic function is normal, estimated at 60-65. 4. There is mild concentric increased left ventricular wall thickness. 5. The left ventricular diastolic function is grade I diastolic dysfunction. 6. E/e' 9 is minimally elevated. 7. Left atrial chamber dimension is moderately enlarged. 8. There is mild aortic valve sclerosis. 9. The mitral valve has a mildly calcified annulus. 10. There is trace mitral valve regurgitation. Blood cultures no growth. Respiratory pathogen panel negative, urine Legionella negative, urine pneumococcal negative, mycoplasma IgM negative. Pulmonology followed patient during hospitalization. Patient completed antibiotic regimen. CPT TID. Steroids given. PT/OT. Patient to follow up with Dr. Palomo Oncology for further work up of her increasing right lower lobe mass. Patient to follow up with Dr. Bañuelos Pulmonology. Patient going to [facility] for rehab. Apnea link showed patient requires 4 liters of nasal cannula at bedtime. Status at Discharge Functional status at discharge: uses cane/walker Overall status at discharge: patient is not back to baseline Time Spent with Patient Time attestation: Total time spent providing and/or coordinating discharge services: Time spent: Greater than 30 minutes Exam Const: General: comfortable and no acute distress Resp: Effort & Inspection: normal respiratory effort Other: slightly diminished with faint crackles Cardio: Rate: regular rate Rhythm: regular rhythm GI: GI Palp: Yes Soft to palpation Auscultation: normal bowel sounds Extrem: General: no pedal edema Psych: Mental Status: mental status grossly normal Affect: normal affect DS: Data Data Completed and Pending Labs on day of discharge: Labs from last 24 hours 11/21/24 05:20 WBC 12.2 H RBC 3.97 L Hgb 11.9 L Hct 37.6 MCV 94.7 MCH 30.0 MCHC 31.6 L RDW 14.9 H Plt Count 128 L MPV 9.7 Sodium 136 L Potassium 3.9 Chloride 106 Carbon Dioxide 27 Anion Gap 3 L BUN 27 H Creatinine 0.78 Estim Creat Clear Calc 49 Estimated GFR > 60 Glucose 99 Calcium 7.9 L Total Bilirubin 0.6 AST 25 ALT 17 Alkaline Phosphatase 85 NT-Pro-B Natriuret Pep 3940 H Total Protein 5.7 L Albumin 2.8 L Discharge Plan Discharge Attending physician on discharge: Nehemias Gu Consulting providers: Yevgeniy Bañuelos Discharging Clinician: Ligia Ulrich Anticipated Discharge Date/Time: 11/21/24 12:03 [facility] [place] Activity: may shower and as tolerated Diet: heart healthy Discharge Instructions: new oxygen requirement. Patient to wear oxygen at 4 liters nasal cannula at night. PT/OT. Check with primary if you should keep increased dose of Lasix 40 mg PO daily. Do not smoke around oxygen. You have completed your antibiotics. Thank you for entrusting [facility] with your healthcare! Patient Instructions: Antibiotic Form, Using Oxygen at Home (DC), COPD (Chronic Obstructive Pulmonary Disease) (DC), Pneumonia (DC), Blood Thinners (GEN) Patient Language: Belarusian Follow-up/Referrals: Quique Palomo MD [Physician] - Call for Appointment Jana Aguiar PA-C [Primary Care Provider] - 1 Week Yevgeniy Bañuelos MD [Physician] - 4 Weeks Discharge Medications: New furosemide 40 mg Tablet 40 mg PO QAM Qty: 14 0RF Patient Comments: x14 days carvedilol [Coreg] 12.5 mg Tablet 12.5 mg PO Q12HR Qty: 60 0RF Trelegy Ellipta 100-62.5-25 mcg blister with device 1 inh inhalation DAILY Qty: 60 0RF Continued desmopressin 0.2 mg tablet 0.2 mg PO HS melatonin 5 mg capsule 5 mg PO QHS lisinopril 40 mg tablet 40 mg PO QAM 90 Days Qty: 90 1RF clopidogrel [Plavix] 75 mg tablet 75 mg PO DAILY Qty: 90 1RF atorvastatin 40 mg tablet 40 mg PO DAILY 90 Days Qty: 90 1RF pantoprazole 20 mg tablet,delayed release (DR/EC) 20 mg PO QAM PRN (Reason: Indigestion) Qty: 90 1RF escitalopram oxalate 10 mg tablet 10 mg PO HS Qty: 90 1RF Discontinued Trelegy Ellipta 200-62.5-25 mcg blister with device 1 inh inhalation DAILY Qty: 60 0RF Airsupra 90-80 mcg/actuation HFA aerosol inhaler 2 inh inhalation QID PRN (Reason: shortness of breath and cough) Qty: 10.7 0RF Rx Instructions: may repeat up to 6 doses per day (12 inhalations) carvedilol 12.5 mg tablet 6.25 mg PO BID 90 Days Qty: 90 1RF furosemide 20 mg tablet 20 mg PO QAM Qty: 90 0RF No Action prednisone 20 mg Tablet 40 mg PO DAILY@0800 Rx Instructions: 2 days supply guaifenesin 600 mg tablet extended release 12hr 600 mg PO Q12H PRN (Reason: congestion) Rx Instructions: x7 days Date of admission: 11/13/24 22:48 Primary Care Provider: Jana Aguiar Admitting Provider: Rebekah Baez Attending physician on admission: Lucia Howard Condition: Improved Hospitalist MIPS Heart Failure (Exclusion) Patient has history of Heart Transplant or Left Ventricular Assistive Device?: No IF YES, STOP HERE Heart Failure (Qualifier) Patient has current or prior documentation of LVEF less than or equal to 40%, or mod/servere depressed LVSF?: No IF NO, STOP HERE
== END 2024-11-21 16:00 | DRG 193 ==
LOC: ANHED 22:52 → ANH2MED 11-14 00:25
PROVIDERS: Internal Medicine Pulmonary Disease; Physician Assistant; Admitting Provider Internal Medicine; Emergency Provider Registered Nurse; PCP Physician Assistant Medical; Visit Provider Nurse Practitioner Family
DX: J18.9 Pneumonia, unspecified organism (principal); J96.01 Acute respiratory failure with hypoxia; J44.0 Chronic obstructive pulmonary disease with (acute) lower respiratory infection; C34.31 Malignant neoplasm of lower lobe, right bronchus or lung; E78.5 Hyperlipidemia, unspecified; F17.210 Nicotine dependence, cigarettes, uncomplicated; F41.9 Anxiety disorder, unspecified; I10 Essential (primary) hypertension; I25.10 Atherosclerotic heart disease of native coronary artery without angina pectoris; I73.9 Peripheral vascular disease, unspecified; J43.1 Panlobular emphysema; K21.9 Gastro-esophageal reflux disease without esophagitis; M81.0 Age-related osteoporosis without current pathological fracture; Z87.442 Personal history of urinary calculi; Z20.822 Contact with and (suspected) exposure to COVID-19; Z86.73 Personal history of transient ischemic attack (TIA), and cerebral infarction without residual deficits; Z95.5 Presence of coronary angioplasty implant and graft; Z90.49 Acquired absence of other specified parts of digestive tract; Z92.3 Personal history of irradiation; Z88.0 Allergy status to penicillin
CPT/HCPCS: 36415; 36600; 71045; 71046; 71275; 74018; 80048; 80053; 80202; 81003; 82103; 82104; 82805; 83605; 83735; 83880; 84145; 84484; 85018; 85025; 85027; 85610; 85730; 86140; 86738; 87040; 87449; 87633; 87637; 87641; 87899; 93005; 93306; 94640; 94667; 94668; 94669; 94762; 96361; 96365; 96367; 96368; 96375; 97110; 97162; 97166; 97530; 99284; 99285; A9270; J0360; J0456; J0692; J1836; J1938; J2060; J2185; J2919; J3370; J7030; J7512; Q9967

== ENCOUNTER 2024-12-01 13:44 | Inpatient (IN) | payer MEDICARE, SELFPAY ==
--- NOTE | ~2024-12-01 | CT_ITS ---
CT chest abdomen pelvis wo con Ordering provider: Kamilla Finney APRN History: . Unexplained leukocytosis, >O2 requirement, N/V . Comparison: November 13, 2024 Technique: CT chest without IV contrast. CT abdomen and pelvis without oral and IV contrast. The dose -length product was 352.57 mGy-cm. FINDINGS: The study is limited due to lack of IV contrast. CHEST: --VISUALIZED THORACIC INLET: Normal as visualized. --MEDIASTINUM: Aorta/coronary arteries: Moderate atheromatous disease. Heart/other: The heart is not enlarged. Trace of pericardial effusion is noted anteriorly. Lymph nodes: Right paratracheal lymph nodes seen measuring 2.2 and 1.8 cm. Right hilar lymphadenopath y is seen. Calcified subcarinal lymph nodes are seen. Precarinal lymph node is seen measuring 1.2 cm. Prevascular lymph nodes are seen with the largest measures 1.1 cm. --LUNGS: Soft tissue density is seen in the right lower lobe which is suggestive of a mass versus pne umonia. Follow-up and further evaluation advised. . Soft tissue density is seen in the right lower lo be just above the previous soft tissue density which may be a mass or focal pneumonia. No pneumothora x. Thickening of the septa is seen in the right upper and lower lobe which may indicate pneumonitis o r edema. Extensive underlying emphysematous changes are noted. --MUSCULOSKELETAL: Soft tissues: The superficial soft tissues are normal. Bones: Age appropriate degenerative changes of the spine. ABDOMEN/PELVIS: --MUSCULOSKELETAL: Bones: Age appropriate degenerative changes of the spine. Superficial soft tissues: The superficial soft tissues are normal. --UPPER ABDOMINAL ORGANS: Liver: Normal. Gallbladder: Status post cholecystectomy. Spleen: Normal. Stomach/duodenum: Normal. Pancreas: Normal. Adrenals: Normal. Kidneys: Normal. Calcifications seen in the right and left kidney areas are most likely vascular. Minimal fullness of the left renal pelvis is seen. Thickening of the wall of the left renal pelvis is seen which may indicate ascending pyelonephritis. Clinical correlation advised. --PELVIC ORGANS: The bladder is normal. No bladder stones. --BOWEL AND MESENTERY: Colon: No evidence of diverticulitis. Fecal material is loaded in the colon. Appendix is not demonstr ated.. Small Bowel: Normal. No obstruction. Peritoneum/mesentery: No free air or free fluid. No mesenteric lymphadenopathy. --RETROPERITONEUM: Severe atheromatous disease of the abdominal aorta. Slight aneurysmal dilatation of the distal aorta is seen measuring 2.8 cm. Stent graft is seen in the left renal artery. Stents ar e seen in the iliac arteries. No retroperitoneal lymphadenopathy. IMPRESSION: CHEST: 1. Hypodensity seen in the right lower lobe unchanged from previous examination which is most likely a mass. Pneumonia cannot be excluded. Another smaller density is seen just above the mentioned previ ously mass which also may be a mass or focal pneumonia. Follow-up to resolution and further evaluatio n advised. 2. Thickening of the septa in the right upper and lower lobe which may indicate pneumonitis versus e chris. Follow-up advised. 3. Right hilar and mediastinal lymphadenopathy. 4. Underlying severe emphysematous changes. 5. Trace of pericardial effusion ABDOMEN/PELVIS: 1. No evidence of appendicitis, diverticulitis or intestinal obstruction. 2. Slightly dilated left renal pelvis with thickening of the wall which may indicate ascending pyelo nephritis. Clinical correlation advised. 3. Severe atherosclerotic changes with slight aneurysmal dilatation seen in the distal aorta measur ing 2.8 cm. Reviewed, dictated and finalized at location A. IMPRESSION: CHEST: 1. Hypodensity seen in the right lower lobe unchanged from previous examinatio n which is most likely a mass. Pneumonia cannot be excluded. Another smaller de nsity is seen just above the mentioned previously mass which also may be a mass or focal pneumonia. Follow-up to resolution and further evaluation advised. 2. Thickening of the septa in the right upper and lower lobe which may indicat e pneumonitis versus edema. Follow-up advised. 3. Right hilar and mediastinal lymphadenopathy. 4. Underlying severe emphysematous changes. 5. Trace of pericardial effusion ABDOMEN/PELVIS: 1. No evidence of appendicitis, diverticulitis or intestinal obstruction. 2. Slightly dilated left renal pelvis with thickening of the wall which may in dicate ascending pyelonephritis. Clinical correlation advised. 3. Severe atherosclerotic changes with slight aneurysmal dilatation seen in t he distal aorta measuring 2.8 cm.
--- NOTE | ~2024-12-01 | XR_ITS ---
EXAMINATION: XR chest 1V portable Exam Date/Time: 12/15/2024 19:14 CDT HISTORY: difficulty breathing Comparison: 12/10/2024; CT cap 12/12/2024. RESULT: Lines, tubes, and devices: None. Lungs and pleura: Leftward rotation. Moderate diffuse reticular opacities in the right hemithorax. S evere emphysematous change. Cardiomediastinal silhouette: Stable. Other: No acute osseous or upper abdominal finding. IMPRESSION: Right lung opacities may represent asymmetric edema or infection, overlying chronic severe emphysema. Reviewed, dictated and finalized at location K. IMPRESSION: Right lung opacities may represent asymmetric edema or infection, overlying chr onic severe emphysema.
--- NOTE | ~2024-12-01 | XR_ITS ---
EXAMINATION: XR chest 2V Exam Date/Time: 12/01/2024 15:10 CDT HISTORY: weakness, fatigue Comparison: 11/15/2024; CTPA 11/13/2024. RESULT: Lines, tubes, and devices: None. Lungs and pleura: Severe emphysematous change. Moderate peripheral and lower right lung interstitial opacities. Masslike peripheral opacities in the posterior right lower lobe. Cardiomediastinal silhouette: Stable. Other: No acute osseous or upper abdominal finding. IMPRESSION: Stable right lower lobe masses. Interstitial opacities in the peripheral and lower right lung may rep resent asymmetric edema or infection/pneumonitis. Reviewed, dictated and finalized at location K. IMPRESSION: Stable right lower lobe masses. Interstitial opacities in the peripheral and lo wer right lung may represent asymmetric edema or infection/pneumonitis.
--- NOTE | ~2024-12-01 | CT_ITS ---
EXAMINATION: CT brain wo con DATE: 12/01/2024 20:37 INDICATION: weakness . TECHNIQUE: Computed tomography (CT) of the head was performed without intravenous contrast. The mA wa s adjusted according to patient size. Iterative reconstruction technique was employed. The dose-lengt h product was 605.33 mGy-cm. COMPARISON: 09/18/2023. FINDINGS: No acute intracranial hemorrhage or extra-axial fluid collection. No hydrocephalus, mass, or herniation. No acute ischemic infarct. Unremarkable dural venous sinus attenuation. No acute osseous abnormality. The aerated spaces are clear. Mild atrophy and chronic white matter change. Atherosclerotic intracranial calcification. Bilateral l ens replacements. Stable chronic encephalomalacia in the right hemisphere. Old focal lacunar infarct in the right basal ganglia. IMPRESSION: No acute intracranial process. Reviewed, dictated and finalized at location K.
--- NOTE | ~2024-12-01 | XR_ITS ---
CHEST RADIOGRAPH CLINICAL HISTORY: elevated white count . COMPARISON: 12/04/2024 TECHNIQUE: Single portable view of the chest. FINDINGS Diffuse interstitial thickening is redemonstrated with peripheral honeycombing, right greater than le ft. Decreased left-sided pleural effusion. Examination is largely unchanged from the previous study performed 12/04/2024. IMPRESSION: Chronic interstitial lung disease with improved left-sided pleural effusion, as detailed above. Reviewed, dictated and finalized at location A.
--- NOTE | ~2024-12-01 | CT_ITS ---
CT brain wo con Ordering provider: Edgar Cam MD History: 74 years Female with . mental status changes . Comparison: December 01/2025 Technique: CT of the head without contrast. Radiation reduction technique utilized.The dose-length pr oduct was 605.33 mGy-cm. FINDINGS: BRAIN PARENCHYMA AND CSF SPACES: Moderate leukoaraiosis and diffuse cortical atrophy. Moderate athero matous disease. Encephalomalacia is seen in the right frontoparietal and parieto-occipital areas due to old infarcts.. No midline shift, mass effect or hemorrhage. The brain parenchyma and CSF spaces a re otherwise normal. VISUALIZED PARANASAL SINUSES: Well aerated. MASTOIDS: Well aerated. BONES: The bones appear intact. SOFT TISSUES: Visualized nasopharynx is normal. Superficial soft tissues are normal. IMPRESSION: No acute intracranial findings. Old infarct in the right frontal parietal and occipital areas with encephalomalacia. Reviewed, dictated and finalized at location A. IMPRESSION: No acute intracranial findings. Old infarct in the right frontal parietal and occipital areas with encephalomal acia.
--- NOTE | ~2024-12-01 | US_ITS ---
EXAMINATION: US venous doppler [facility] DATE: 12/15/2024 16:18 INDICATION: edema . TECHNIQUE: Grayscale images without and with compression and Doppler images of the bilateral lower ex tremity veins were obtained. COMPARISON: 04/07/2004 FINDINGS: Thrombus in the distal right superficial femoral vein. The right common femoral vein, profunda (deep) femoral vein, popliteal vein, peroneal vein, posterior tibial veins, gastrocnemius vein, and greater saphenous vein are patent. The left common femoral vein, profunda (deep) femoral vein, femoral vein, popliteal vein, peroneal v ein, posterior tibial veins, gastrocnemius vein, and greater saphenous vein are patent. IMPRESSION: Thrombus in the distal right superficial femoral vein. Otherwise patent lower pulmonary veins. Reviewed, dictated and finalized at location K. IMPRESSION: Thrombus in the distal right superficial femoral vein. Otherwise patent lower p ulmonary veins.
--- NOTE | ~2024-12-01 | XR_ITS ---
Portable chest x-ray Comparison: 12/01/2024 Clinical History: Hypoxia Findings: There is worsening hazy and interstitial pulmonary disease bilaterally, compatible worseni ng pulmonary edema. Probable underlying COPD or other chronic interstitial disease. Possible minimal left pleural effusion. Cardiomediastinal silhouette is stable. Bones and soft tissues are unremarkab le. Impression: Worsening alveolar and interstitial pulmonary edema pattern. Correlate clinically for pneumonia. Underlying COPD or other chronic interstitial disease. Minimal left pleural effusion. Reviewed, dictated and finalized at location . Impression: Worsening alveolar and interstitial pulmonary edema pattern. Correlate clinical ly for pneumonia. Underlying COPD or other chronic interstitial disease. Minimal left pleural effusion.
--- OUTSIDE RECORDS SUMMARY | 2024-12-01 14:04 | XMS_ITS | Continuity of Care Document ---
Author Organization [facility] Address [address] [place] [address] [address] [place] [address] Phone Care Team Providers Care Graduate Research Assistant Name Role Phone Michelle Ojeda Unavailable Unavailable Advance Directives Directive Yes / No Effective Date File Name No Information Encounters Encounter Description Practice Location Reason(s) For Visit Diagnoses Date Provider Providers Copied on Encounter [facility], [address], [place], [place], [id number], [place] tel:[phone] [facility] No Information [address]. [address] , [address], [place], [address], [place]. tel:[phone] Family History Family Member Type Diagnosis Age At Onset No Information Payers Payer name Insurance type Covered libertarian ID Authoriza tion(s) [employer] SOI CI [id number] Social History Type Description Quantity Date Captured [...]
--- OUTSIDE RECORDS SUMMARY | 2024-12-01 14:04 | XMS_ITS | Clinical Summary ---
Author Organization [facility] Address [address] [place] [address] Phone Care Team Providers Care Lap Runner Name Role Phone Unavailable Primary Care Provider [...] 50 mg Oral tabletIndications:C oronary atherosclerosis of [place] band coronary artery,Hyperlipidem ia,Hypertension Take 1 Tab by mouth daily. 90 Tab 4 06/15/19 12 Active lisinopril (PRINIVIL) 40 mg Oral tablet Take 2 Tabs by mouth daily. 0 180 Tab 4 08/20/19 13 Active cholecalciferol, vitamin D3, 50 mcg (2,000 unit) Tablet, Chewable Take by mouth. 12/08/19 21 Active atorvastatin (LIPITOR) 40 mg tablet Take by mouth. 09/11/19 20 Active melatonin 5 mg Capsule Take by mouth. 01/13/20 20 Active escitalopram oxalate (LEXAPRO) 5 mg tablet 05/15/20 22 Active carvediloL (COREG) 12.5 mg tablet Take [...] mg by mouth Continuous as needed. Active Active Problems Patient Care Coordination No te Formatting of this note migh t be different from the original. Department Traffic Freight Router - Dr Christian Ascencio Problem Noted Date Diagnosed Date Coronary atherosclerosis of [place] coronary martin ry 11/25/2010 Overview (08/16/2012): [...] LDL 140 triglyceride 121, normal AST/ALT 07/13 [id number] HDL 43 LDL 100 triglyceride 115, normal AST/ALT 04/05 cholesterol 213 HDL 38 LDL 150 triglyceride 125 COPD (chronic obstructive pulmonary disease) Overview (04/05/2011): 03/[address]: severe rosa emphysema, RLL honeycombing, celiac/SMA /renal artery atherosclerosis, no PE/aortic disease, left hydronephrosis,... Encounters Date Type Department Care Team Description 11/04/2024 Telephone [facility] [place] [facility] - [address] [place] [address] Guided Biopsy (Spoke with patient to provide CT guided biopsy info) 10/28/2024 Orders Only [facility] [place] [facility] - Josh [address] [place] [id number] Quique Palomo MD 10/24/2024 12:00 PM CDT Office Visit [facility] [place] [facility] - [address] [place] [address] Quique Palomo MD Mass of right lung (Primary Dx); Chronic obstructive pulmonary disease, unspecified COPD type (CMS/HCC) 10/22/2024 External Device Data STL ABSTRACTION Provider, Abstract 10/22/2024 Orders Only [facility] [place] [facility] - [address] [place] [address] Quique Palomo MD 10/21/2024 External Device Data STL ABSTRACTION Provider, Abstract 10/14/2024 Orders Only [facility] [place] [facility] - Josh [address] [place] [address] Quique Palomo MD from Last 3 Months Family History Relation Name Status Comments Father Alive [place] at age 45 Sister Alive [place] at age 39 Social History Tobacco Use [...] on file Legal Sex Female 5:58 AM [employer] Gender Identity Not on file Sexual Orientation [...] Mass Index - - Plan of Treatment Health Maintenance Due Date [...] WITH AUTODIFFERENTIAL (10/24/2024 11:16 AM CDT) Blood us Quique Palomo MD HEMATOLOGY ORDERABLES Final Res ult * CT CHEST W CONTRAST (10/20/2024 2:00 PM CDT) Anatomical Region Laterality Modality Chest Computed Tomogra phy us Quique Palomo MD CT ORDERABLES Final Result * COMPREHENSIVE METABOLIC PANEL (10/09/2024 2:27 PM CDT) Blood us Quique Palomo MD CHEMISTRY ORDERABLES Final Resu lt from Last 3 Months Insurance MEDICARE PART A AND B [facility] SUPP MEDICARE PART A AND B [facility] SUPP
--- OUTSIDE RECORDS SUMMARY | 2024-12-01 14:04 | XMS_ITS | Encounter Summary ---
Author Organization [facility] Address [address] [place] [address] Care Team Providers Care Hospital Laboratory Technician Name Role Phone Rosales Wolfe MD Primary Care Provider [phone] Jana Aguiar PA-C Primary Care Provider [phone] Encounter Details Date Type Department Care Team (Late st Contact Info) Description 01/02/2019 Hospital Follow-up Call [facility] Telemetry Unit B [address] [place] [address] Mally De La Torre Social History Tobacco [...] documented as of this encounter Care Teams Hospital Laboratory Technician Relationship Specialty Start Date End Date Rosales Wolfe MD [address] [place] [id number] PCP - General INTERNAL MEDICINE 11/12/18 08/25/22 Jana Aguiar PA-C [address] [place] [id number] PCP - General PHYSICIAN DIRECTOR MATERNAL CHILD 08/26/22 documented as of this encounter
--- OUTSIDE RECORDS SUMMARY | 2024-12-01 14:04 | XMS_ITS | Clinical Summary ---
Author Organization [facility] Address [address] [place] [address] Care Team Providers Care Composite Bond Worker Name Role Phone Babita Reyes PA-C Primary Care Provider [phone] Allergies Active Allergy Reactions Criticality Noted Date Comments Hydralazine Hcl Unknown 05/13/2012 Cephalexin Unknown 05/13/2012 Hydrochlorothiazide-Triamter lance Unknown 05/13/2012 Morphine Unknown 12/15/2022 Penicillins Shortness of Breath,Unknown High 05/13/2012 Medications lisinopril 40 MG tabletIndication s:Hypertension Take 1 tablet (40 mg total) by mouth daily. Indications: High Blood Pressure 9 Active pantoprazole EC 20 MG tabletIndication s:GERD Take 1 tablet (20 mg total) by mouth daily as needed. Indications: GERD 9 Active clopidogrel 75 MG tabletIndication s:CVA [The details of the medication are not available because there are pending changes by a home health clinician.] 30 tablet 9 Active Additional Information Patient taking differently:75 mg Oral Daily,Indications: CVA/PVD, Reported on 09/09/2024 ATORVASTATIN 40 MG tabletIndication s:Hyperlipidemia TAKE 1 TABLET(40 MG) BY MOUTH DAILY 90 tablet 9 Active ALPRAZolam (XANAX) 0.25 MG tabletIndication s:Anxiety Take 1 tablet (0.25 mg total) by mouth 2 (two) times daily as needed for Anxiety. Indications: Feeling Anxious 3 Active desmopressin (DDAVP) 0.2 MG tabletIndication s:urinary incontinence at HS Take by mouth nightly at bedtime. Indications: urinary incontinence at HS at bedtime. Active escitalopram (LEXAPRO) 10 MG tabletIndication s:Depression Take 1 tablet (10 mg total) by mouth daily. Indications: Depression 2 Active melatonin 5 MG tabletIndication s:Insomnia Take [...] mouth 2 (two) times daily. 60 tablet 5 Active NIFEdipine XL (ADALAT CC) 30 MG 24 hr tabletIndication s:Hypertension Take 1 tablet (30 mg total) by mouth daily. 30 tablet 5 Active OXYGENIndication s:Hypoxia,shortn ess of breath 2 L/min by Nasal route as needed (shortness of breath). Indications: Hypoxia, shortness of breath 5 Active Acetaminophen 325 MG CapIndications:P ain Take 2 tablets by mouth every 4 (four) hours as needed. Indications: Pain 5 Active Active Problems Problem Noted Date Diagnosed Date COPD exacerbation ([facility]) 09/09/2024 Shock ([facility]) 09/09/2024 Hypertensive emergency 09/04/2024 Status post biopsy of skin 01/03/2019 Acute CVA (cerebrovascular accident) ([facility]) 12/31/2018 Skin lesion 11/13/2018 Anxiety 12/17/2014 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 [address] [place] [address] Yina Bhatia, roadability machine operator (Swing bed referral to [facility] from Josh ) 09/25/2024 12:21 PM CDT - 09/25/2024 11:59 PM CDT Hospital Encounter [facility] [address] [place] [address] Babita Reyes PA-C Discharge Disposition: Home or Self Care (Routine Discharge) 09/25/2024 10:30 AM CDT Home Care Visit [facility] Care [address] [place] [address] Roxy Ndiaye, PT PT OASIS DISCHARGE 09/25/2024 Travel 09/22/2024 12:00 PM CDT Home Care Visit [facility] Care [address] [address] Shreya Lerma, LINESPERSON LINESPERSON HOME VISIT 09/22/2024 11:00 AM CDT Home Care Visit [facility] Care [address] [address] Olga Mcgee, LOBITO SN DISCIPLINE DISCHARGE 09/22/2024 Home Care Visit [address] [address] Olga Mcgee, RN [facility] INTERDISCIPLINARY MT 09/18/2024 1:15 PM CDT [facility] Home Care [address] [address] Shreya Lerma, LINESPERSON LINESPERSON HOME VISIT 09/15/2024 10:30 AM CDT Home Care Visit [facility] Care [address] [address] Soniya Singh LPN SN HOME VISIT 09/15/2024 9:00 AM CDT Home Care Visit [facility] Care [address] [address] Shreya Lerma, LINESPERSON LINESPERSON HOME VISIT 09/12/2024 9:30 AM CDT Home Care Visit [facility] Care [address] [place] [address] Maricarmen Shaver, PT PT INITIAL EVALUATION 09/11/2024 10:00 AM CDT Home Care Visit [facility] Care [address] [place], [place] [id number] Olga Mcgee, RN SN OASIS RESUMPTION OF CARE 09/11/2024 Hospital Follow-up Call [facility] Care Management [address] [place] [address] May Banks LPN Follow Up Call ([facility] 09/08-09/10/24) 09/11/2024 Plan of Care Documentation [address] [place], [place] [id number] 09/11/[address] [facility] Med/Surg [address] [place] [address] Freida Munson, RN Follow Up Call (Patient states :she feels better and will call to get appt w/ PCP) 09/10/2024 Home Care Visit [facility] Care [address] [place], [place] [phone] Roxy Ndiaye, PT CASE COMMUNICATION 09/10/2024 Home Care Visit [facility] Care [address] [place] [address] Ryanne Adames RN SN OASIS TRANSFER W/OUT DC 09/10/2024 Telephone [facility] Care Management [address] [place] [address] Yina Bhatia, roadability machine operator (Swing bed referral to [facility] from [facility]/) 09/09/2024 Hospital Follow-up Call [facility] Care Management [address] [place] [address] May Banks LPN Follow Up Call ([facility] 09/04-09/07/24) 09/09/2024 Travel 09/08/2024 7:47 PM CDT - 09/10/2024 3:30 PM CDT Hospital Encounter [facility] Med/Surg [address] [place] [address] Osvaldo Zuñiga MD Ojulari, Adebunmi, MD Harris, Michael, MD McGowen, Payton K, MD Dizziness Discharge Disposition: Left Against Medical Advice 09/08/2024 10:45 AM CDT Home Care Visit [facility] Home Care [address] [place] [address] Brit Suarez, LOBITO SN OASIS START OF CARE 09/08/2024 Plan of Care Documentation [facility] Care [address] [address] 09/04/2024 9:44 AM CDT - 09/07/2024 3:25 PM CDT Hospital Encounter [facility] Med/Surg [address] [place] [address] Thalia Vieira MD Harris, Michael, MD Daniels, Cindy Villeda, [employer] SALES REPRESENTATIVE Dizziness Discharge Disposition: Home with Home Health Care 09/04/2024 Travel from Last 3 Months Immunizations Immunization Administration Dates Next Due Fluad influenza vaccine, Stephen drivalent (aIIV4), Inactivated, adjuvanted, preservative free, 0.5 mL,IM use 03/16/2018 Fluzone High Dose - >Age 65 (Prefilled Syringe) 03/24/2019,02/17/2017 Influenza (Generic) 04/06/2014,03/19/2012 Influenza Adult (Generic) 03/23/2015,01/31/2013 Pneumococcal (Pneumovax 23) 02/17/2017 Pneumococcal (Prevnar 13) 05/23/2015 Zoster (Zostavax) [address] Unt/0.65Ml 01/31/2013 Family History Medical History Relation [...] from your doctor or pharmacy? Sometimes 09/09/2024 [employer] Answer Date Recorded In the past 12 months has e DGIT, oil, or water [employer] threatened to shut off services in your [...] often do you attend chur ch or buddhist services? Never 09/09/2024 Do you belong to any clubs o r organizations such as alevism groups, unions, fraternal or athletic groups, or [...] Recorded Patient Health Questionnaire-2 Score 0 12/15/2022 [facility] - Occupational Stress [...] any time in the past 12 m [facility], were you homeless or living in a care home (including now)? 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 us Babita Reyes PA-C MAMMO Final Resu lt * (ABNORMAL) BASIC METABOLIC PANEL (09/10/2024 6:21 AM CDT) Only the most recent of3 resultswithin the time period is included. GLUCOSE 135(H) 70 - 99 MG/DL 09/10/2024 6:59 AM CDT [facility] BUN 16 7 - 18 MG/DL 09/10/2024 6:59 AM CDT [facility] CREATININE S/P/B 0.89 0.55 - 1.02 MG/DL 09/10/2024 6:59 AM CDT [facility] SODIUM S/P/B 138 136 - 145 MMOL/L 09/10/2024 6:59 AM CDT [facility] POTASSIUM S/P/B 4.0 3.5 - 5.1 MMOL/L 09/10/2024 6:59 AM CDT [facility] CHLORIDE S/P/B 103 100 - 108 MMOL/L 09/10/2024 6:59 AM CDT [facility] CO2 27.8 21 - 32 MMOL/L 09/10/2024 6:59 AM CDT [facility] CALCIUM S/P/B 9.6 8.5 - 10.1 MG/DL 09/10/2024 6:59 AM CDT [facility] ANION GAP 7.2 5 - 15 MMOL/L 09/10/2024 6:59 AM CDT [facility] BUN CREATININE RATIO 18.0 6 - 26 09/10/2024 6:59 AM T [facility] GFR ESTIMATE 68(L) >90 ML/MIN/1.7 3 M2 09/10/2024 6:59 AM CDT [facility] Comment: NOTE: eGFR is not calculated for patients <18 years of age. This is an estimated GFR calculation using the new CKD EPI creatinine equation without race and so does not require a correction factor for race. This estimated GFR should not be used for calculating drug doses. 09/10/2024 6:21 AM CDT us Mary Leger MD LABORATORY Final Result [facility] [address] [place] [address], * (ABNORMAL) CBC W/DIFF AUTOMATED (09/10/2024 6:21 AM CDT) Only the most recent of6 resultswithin the time period is included. WBC 11.54(H) 4.4 - 11.0 x10'3/uL 09/10/2024 6:49 AM CDT [facility] RBC 4.20(L) 4.50 - 5.10 x10'6/uL 09/10/2024 6:49 AM CDT [facility] HGB 12.9 12.3 - 15.3 G/DL 09/10/2024 6:49 AM CDT [facility] HCT 40.2 35.9 - 44.6 % 09/10/2024 6:49 AM CDT [facility] MCV 95.7 80.0 - 96.0 FL 09/10/2024 6:49 AM CDT [facility] MCH 30.7 25.3 - 30.9 PG 09/10/2024 6:49 AM CDT [facility] MCHC 32.1 31.0 - 34.1 G/DL 09/10/2024 6:49 AM CDT [facility] RDW 14.3 12.4 - 15.1 % 09/10/2024 6:49 AM T [facility] PLT 236 151 - 353 x10'3/uL 09/10/2024 6:49 AM T [facility] MPV 9.2(L) 9.6 - 12.0 FL 09/10/2024 6:49 AM T [facility] RBC MORPHOLOGY NORMAL 09/10/2024 6:49 AM T [facility] PLT MORPH. NORMAL 09/10/2024 6:49 AM T [facility] WBC MORPHOLOGY NORMAL 09/10/2024 6:49 AM T [facility] LYMPHOCYTES % 15.7(L) 15.8 - 45.0 % 09/10/2024 6:49 AM T [facility] NEUTROPHILS % 80.4(H) 42.1 - 71.9 % 09/10/2024 6:49 AM CDT [facility] MONOCYTES % 3.2(L) 5.7 - 12.5 % 09/10/2024 6:49 AM CDT [facility] EOSINOPHILS 0.0 0.0 - 5.6 % 09/10/2024 6:49 AM CDT [facility] BASOPHILS 0.2 0.0 - 1.3 % 09/10/2024 6:49 AM CDT [facility] ABS. NEUTROPHILS 9.28(H) 1.40 - 6.00 x10'3/uL 09/10/2024 6:49 AM CDT [facility] IMMATURE GRANS % 0.5 0.0 - 0.5 % 09/10/2024 6:49 AM CDT [facility] ABS. LYMPHOCYTES 1.81 0.80 - 4.70 x10'3/uL 09/10/2024 6:49 AM CDT [facility] 09/10/2024 6:21 AM CDT us Mary Leger MD LABORATORY Final Result [facility] [address] [place] [id number], * XR CHEST PORTABLE (09/08/2024 10:50 PM [...] 11:44 PM Narrative 09/08/2024 11:[address] [place] [address] Examination: Chest x-ray 1 view Exam Date/Time: [...] Procedure Note Selwyn Rivera MD - 09/08/[address] [place] [address] Examination: Chest x-ray 1 view Exam Date/Time: [...] is included. 09/08/2024 8:01 PM CDT Narrative [facility] ([facility]) RAD - 09/08/2024 10:15 PM CDT [facility] Test Date: 2024-09-08 Pat Name: FARHAD BOCANEGRA Department: 85 Room: EXAM 505 Gender: Female Home Inspector: : 1950 Requested By: OSVALDO ZUÑIGA Order Number: [id number] Reading MD: Abbe Farmer Measurements Intervals [place] Rate: 57 P: 69 ND: 149 QRS: 44 QRSD: 102 T: 72 QT: 467 QTc: 456 Interpretive Statements SINUS BRADYCARDIA LEFT VENTRICULAR HYPERTROPHY AND ST-T CHANGE [VOLTAGE CRITERIA PLUS ST/T ABNORMALITY] Compared to ECG 09/04/2024 10:42:38 Left ventricular hypertrophy now present Sinus rhythm no longer present Prolonged QT interval no longer present ST (T wave) deviation still present Procedure Note Abbe Farmer MD - 09/08/2024 [facility] Test Date: 2024-09-08 Pat Name: FARHAD BOCANEGRA Department: 85 Room: EXAM 505 Gender: Female Home Inspector: : 1950 Requested By: OSVALDO ZUÑIGA Order Number: [id number] Reading : Abbe Farmer Measurements Intervals [place] Rate: 57 P: 69 ND: 149 QRS: 44 QRSD: 102 T: 72 QT: 467 QTc: 456 Interpretive Statements SINUS BRADYCARDIA LEFT VENTRICULAR HYPERTROPHY AND ST-T CHANGE [VOLTAGE CRITERIA PLUSST/T ABNORMALITY] Compared to ECG 09/04/2024 10:42:38 Left ventricular hypertrophy now present Sinus rhythm no longer present Prolonged QT interval no longer present ST (T wave) deviation still present us Osvaldo Zuñiga MD ECG ORDERABLES Final Resu lt [facility] ([facility]) RAD * (ABNORMAL) PRO-BRAIN NATRIURETIC PEPTIDE (09/08/2024 8:00 PM CDT) PRO-B TYPE NATRIURETIC PEPTIDE 1,124(H) <125 PG/ML 09/09/2024 12:48 AM CDT [facility] Comment: CUT POINTS ESTABLISHED BY [employer]NATIONAL [employer] ON NT PROBNP (ICON) STUDY (2006). AGE INDEPENDENT: <300 PG/ML HAS A 99% NEGATIVE PREDICTIVE VALUE FOR EXCLUDING ACUTE CHF <50 YEARS: >450 PG/ML IS CONSISTENT WITH ACUTE CHF 50-75 YEARS: >900 PG/ML IS CONSISTENT WITH ACUTE CHF >75 YEARS: >1800 PG/ML IS CONSISTENT WITH ACUTE CHF IN PATIENTS WITH RENAL INSUFFICIENCY (GFR <60), >1200 PG/ML YIELDS A DIAGNOSTIC SENSITIVITY AND SPECIFICITY OF 89% AND 72% FOR ACUTE CHF. 09/08/2024 8:00 PM CDT us Osvaldo Zuñiga MD LABORATORY Final Resu lt [facility] [address] [place] [address], * (ABNORMAL) COMPREHENSIVE METABOLIC PANEL (09/08/2024 8:00 PM CDT) Only the most recent of3 resultswithin the time period is included. GLUCOSE 104(H) 70 - 99 MG/DL 09/08/2024 8:47 PM CDT [facility] BUN 20(H) 7 - 18 MG/DL 09/08/2024 8:47 PM CDT [facility] CREATININE S/P/B 1.28(H) 0.55 - 1.02 MG/DL 09/08/2024 8:47 PM CDT [facility] SODIUM S/P/B 135(L) 136 - 145 MMOL/L 09/08/2024 8:47 PM CDT [facility] POTASSIUM S/P/B 4.1 3.5 - 5.1 MMOL/L 09/08/2024 8:47 PM T [facility] CHLORIDE S/P/B 102 100 - 108 MMOL/L 09/08/2024 8:47 PM [facility] CO2 24.1 21 - 32 MMOL/L 09/08/2024 8:47 PM T [facility] CALCIUM S/P/B 9.3 8.5 - 10.1 MG/DL 09/08/2024 8:47 PM T [facility] BILIRUBIN TOTAL S/P/B 0.5 0.2 - 1.2 MG/DL 09/08/2024 8:47 PM [facility] TOTAL PROTEIN S/P/B 7.6 6.4 - 8.2 G/DL 09/08/2024 8:47 PM [facility] ALBUMIN S/P/B 3.2(L) 3.4 - 5.0 G/DL 09/08/2024 8:47 PM [facility] AST 23 15 - 37 U/L 09/08/2024 8:47 PM [facility] ALT 12(L) 14 - 55 U/L 09/08/2024 8:47 PM [facility] ALKALINE PHOSPHATASE S/P/B 112 50 - 136 U/L 09/08/2024 8:47 PM [facility] ANION GAP 8.9 5 - 15 MMOL/L 09/08/2024 8:47 PM [facility] BUN CREATININE RATIO 15.6 6 - 26 09/08/2024 8:47 PM [facility] A/G RATIO 0.7(L) 1.0 - 2.0 RATIO 09/08/2024 8:47 PM CDT [facility] GFR ESTIMATE 44(L) >90 ML/MIN/1.7 3 M2 09/08/2024 8:47 PM CDT [facility] Comment: NOTE: eGFR is not calculated for patients <18 years of age. This is an estimated GFR calculation using the new CKD EPI creatinine equation without race and so does not require a correction factor for race. This estimated GFR should not be used for calculating drug doses. 09/08/2024 8:00 PM CDT us Osvaldo Zuñiga MD LABORATORY Final Resu lt Performing Organization Address [facility] Co de Phone Number [facility] [address] [place] [address], [place] [phone] * TROPONIN, QUANT (09/08/2024 8:00 PM CDT) Only the most recent of2 resultswithin the time period is included. TROPONIN I HIGH SENSITIVITY 12 0 - 50 ng/L 09/09/2024 12:44 AM CDT [facility] Comment: HIGH DOSES OF BIOTIN, TROPONIN-SPECIFIC AUTOANTIBODIES, AND ANTIBODY THERAPY CONTAINING HAMA MAY INTERFERE WITH THIS TEST RESULT. CORRELATION TO CLINICAL HISTORY AND PRESENTATION RECOMMENDED. 09/08/2024 8:00 PM CDT us Osvaldo Zuñiga MD LABORATORY Final Resu lt Performing Organization Address City/[facility]/ZIP Co de Phone Number [facility] [address] [place] [address], [place] [phone] * MAGNESIUM (09/08/2024 8:00 PM CDT) Only the most recent of4 resultswithin the time period is included. MAGNESIUM 2.1 1.8 - 2.4 MG/DL 09/09/2024 12:48 AM CDT [facility] 09/08/2024 8:00 PM CDT us Osvaldo Zuñiga MD LABORATORY Final Resu lt [facility] [address] [place] [address], [place] [phone] * URINALYSIS (09/05/2024 4:27 PM CDT) COLOR (U) YELLOW 09/05/2024 5:03 PM CDT [facility] TRANSPARENCY CLEAR 09/05/2024 5:03 PM CDT [facility] SPECIFIC GRAVITY (U) 1.025 1.000 - 1.030 09/05/2024 5:03 PM CDT [facility] U PH 6.0 5.0 - 9.0 09/05/2024 5:03 PM CDT [facility] LEUKOCYTES (U) NEGATIVE NEGATIVE 09/05/2024 5:03 PM CDT [facility] NITRITES NEGATIVE NEGATIVE 09/05/2024 5:03 PM CDT [facility] PROTEIN RANDOM (U) NEGATIVE NEGATIVE 09/05/2024 5:03 PM CDT [facility] GLUCOSE (U) NEGATIVE NEGATIVE 09/05/2024 5:03 PM CDT [facility] KETONES MG/DL (U) NEGATIVE NEGATIVE 09/05/2024 5:03 PM CDT [facility] BILIRUBIN (U) NEGATIVE NEGATIVE 09/05/2024 5:03 PM CDT [facility] BLOOD (U) NEGATIVE NEGATIVE 09/05/2024 5:03 PM CDT [facility] URINE SPECIMEN OBTAINED BY CLEAN CATCH PROCEDURE / Unknown 09/05/2024 4:27 PM CDT us Cindy Kramer [employer] SALES REPRESENTATIVE URINE ORDERABLES Final Result [facility] [address] [place] [address], [place] [phone] * CULTURE, BACTERIA, BLOOD (09/05/2024 10:21 AM CDT) Pathologist [facility] SPEC DESCRIPTION BLOOD-PEDIA TRIC VOLUME 09/05/2024 8:26 AM CDT [facility] SPECIAL REQUESTS NO SPECIAL REQUEST 09/05/2024 8:26 AM CDT [facility] CULTURE RESULT NO GROWTH 5 DAYS 09/10/2024 2:57 PM CDT [facility] BLOOD SPECIMEN OBTAINED FOR BLOOD CULTURE / Unknown 09/05/2024 10:21 AM CDT 09/05/2024 10:22 AM CDT Cindy Kramer NP MICROBIOLOGY - GENERAL ORDERA BLES Final Result [facility] [address] [place] [address], [place] [phone] [facility] [address] [place] [address], [place] [phone] * RESPIRATORY PCR PANEL 2 (09/05/2024 9:30 AM CDT) Pathologist [facility] ADENOVIRUS PCR (RESP) NOT DETECTED NOT DETECTED 09/05/2024 3:48 PM CDT [facility] CORONAVIRUS 229E PCR (RESP) NOT DETECTED NOT DETECTED 09/05/2024 3:48 PM CDT [facility] CORONAVIRUS HKU1 PCR (RESP) NOT DETECTED NOT DETECTED 09/05/2024 3:48 PM CDT [facility] CORONAVIRUS NL63 PCR (RESP) NOT DETECTED NOT DETECTED 09/05/2024 3:48 PM CDT [facility] CORONAVIRUS OC43 PCR (RESP) NOT DETECTED NOT DETECTED 09/05/2024 3:48 PM CDT [facility] METAPNEUMOVIRUS PCR (RESP) NOT DETECTED NOT DETECTED 09/05/2024 3:48 PM CDT [facility] RHINOVIRUS/ENTEROV IRUS PCR (RESP) NOT DETECTED NOT DETECTED 09/05/2024 3:48 PM CDT [facility] INFLUENZA A PCR (RESP) NOT DETECTED NOT DETECTED 09/05/2024 3:48 PM CDT [facility] INFLUENZA B PCR (RESP) NOT DETECTED NOT DETECTED 09/05/2024 3:48 PM CDT [facility] PARAINFLUENZA 1 PCR (RESP) NOT DETECTED NOT DETECTED 09/05/2024 3:48 PM CDT [facility] PARAINFLUENZA 2 PCR (RESP) NOT DETECTED NOT DETECTED 09/05/2024 3:48 PM CDT [facility] PARAINFLUENZA 3 PCR (RESP) NOT DETECTED NOT DETECTED 09/05/2024 3:48 PM CDT [facility] PARAINFLUENZA 4 PCR (RESP) NOT DETECTED NOT DETECTED 09/05/2024 3:48 PM CDT [facility] RSV PCR (RESP) NOT DETECTED NOT DETECTED 09/05/2024 3:48 PM CDT [facility] B PARAPERTUSIS PCR (RESP) NOT DETECTED NOT DETECTED 09/05/2024 3:48 PM CDT [facility] BORDETELLA PERTUSSIS PCR (RESP) NOT DETECTED NOT DETECTED 09/05/2024 3:48 PM CDT [facility] CHLAMYDOPHILA PNEUMONIAE PCR (RESP) NOT DETECTED NOT DETECTED 09/05/2024 3:48 PM CDT [facility] MYCOPLASMA PNEUMONIAE PCR (RESP) NOT DETECTED NOT DETECTED 09/05/2024 3:48 PM CDT [facility] CORONAVIRUS SARS COV 2 PCR (RESP) NOT DETECTED NOT DETECTED 09/05/2024 3:48 PM CDT [facility] NASOPHARYNGEAL SWAB / Unknown 09/05/2024 9:30 AM CDT Cindy Karmer NP MICROBIOLOGY - GENERAL ORDERA BLES Final Result [facility] [address] [place] [address], * PROCALCITONIN (PCT) (09/05/2024 6:09 AM CDT) PROCALCITONIN <0.05 0.00 - 0.25 NG/ML 09/05/2024 10:06 AM CDT [facility] Comment: PROCALCITONIN INTERPRETATION GUIDELINES LOWER RESPIRATORY TRACT INFECTIONS (LRTI): USE OF PCT IN INPATIENT OR EMERGENCY SITUATION INITIATION OF ANTIBIOTICS PCT VALUE INTERPRETATION <0.10 NG/ML ANTIBIOTIC THERAPY STRONGLY DISCOURAGED. 0.10-0.25 NG/ML ANTIBIOTIC THERAPY DISCOURAGED. 0.26-0.50 NG/ML ANTIBIOTIC THERAPY ENCOURAGED. >0.50 NG/ML ANTIBIOTIC THERAPY STRONGLY ENCOURAGED. DISCONTINUE ANTIBIOTICS PCT LESS THAN OR EQUAL TO 0.25 NG/ML OR DELTA PCT >80 PERCENT DELTA PCT= PCT(PEAK)-PCT(CURRENT)/PCT(PEAK)X100% STUDIES HAVE EVALUATED PCT PROTOCOLS IN THESE PATIENTS AND FOUND THAT FOR PATIENTS WHO ARE CLINICALLY STABLE AND ARE TREATED AT THE ED OR ARE HOSPITALIZED, THE INITIATION OF ANTIBIOTIC THERAPY SHOULD BE BASED ON CLINICAL GROUNDS AND A PCT VALUE OF GREATER THAN OR EQUAL TO 0.26 NG/ML. IF PCT REMAINS LOWER, ANTIBIOTICS CAN BE WITHHELD AND PATIENTS CAN BE REASSESSED CLINICALLY WITHOUT SAFETY CONCERNS. IF PATIENTS ARE CLINICALLY STABLE, AN ALTERNATIVE DIAGNOSIS SHOULD BE CONSIDERED. IF PATIENTS ARE UNSTABLE, THEN ANTIBIOTICS MAY BE CONSIDERED. IF PATIENTS DO NOT IMPROVE IN THE SHORT FOLLOW UP PERIOD OF 6 TO 12 HOURS, CLINICAL RE-EVALUATION AND RE-MEASUREMENT OF PCT IS RECOMMENDED. 09/05/2024 6:09 AM CDT Cindy Kramer NP LABORATORY Final Result [facility] [address] [id number], * CT HEAD WO CON (09/04/2024 10:35 AM CDT) Anatomical Region Laterality Modality Head Computed Tomogra phy 09/04/2024 10:4 4 AM CDT Impressions 09/04/2024 10:46 AM CDT IMPRESSION: 1. No CT evidence of an acute intracranial abnormality. 2. Moderate global cerebral volume loss and findings of chronic small vessel ischemic change. 3. 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 Ordered By: THALIA VIEIRA Interpreted By: Reginaldo Gregg MD, 09/04/2024 10:44 AM Narrative 09/04/2024 10:46 AM CDT [facility] [address] [place] [address] Examination: CT HEAD WO CON, 09/04/2024 10:34 AM. Technique: Computed tomographic images of the head were obtained without intravenous contrast. Additional coronal and sagittal reformatted images were generated at a separate workstation. A dose lowering technique was used for this procedure, which may include, but is not limited to, dose reduction technique, automated exposure control, the use of iterative reconstruction, and ALARA (As Low As Reasonably Achievable) / Image Gently techniques. Clinical history: dizziness, hypertension Comparison: CT head 12/31/2018 Findings: There is no acute intracranial hemorrhage. No extra-axial fluid collection. Focal encephalomalacia involving the lateral right frontal and lateral right occipital lobe regions. Moderate global cerebral volume loss with ex vacuo dilatation of ventricles and cerebral sulci. Scattered subcortical and periventricular white matter foci demonstrating hypodensity that are nonspecific but most commonly seen in the setting of chronic small vessel ischemic change. Basal cisterns appear normal. Mild to moderate arteriosclerotic calcification the cavernous segments the internal carotid arteries bilaterally. Orbital ocular lens extractions with prosthetic lens implantation. Paranasal sinuses and mastoid air cells are well aerated. There is no acute fracture nor destructive process of the visualized osseous structures. Procedure Note Reginaldo Gregg MD - 09/04/2024 [facility] [address] [place] [address] Examination: CT HEAD WO CON, 09/04/2024 10:34 AM. Technique: Computed tomographic images of the head were obtained withoutintravenous contrast. Additional coronal and sagittal reformatted imageswere generated at a separate workstation. A dose lowering technique wasused for this procedure, which may include, but is not limited to, dosereduction technique, automated exposure control, the use of iterativereconstruction, and ALARA (As Low As Reasonably Achievable) / Image Gentlytechniques. Clinical history: dizziness, hypertension Comparison: CT head 12/31/2018 Findings: There is no acute intracranial hemorrhage. No extra-axial fluidcollection. Focal encephalomalacia involving the lateral right frontal andlateral right occipital lobe regions. Moderate global cerebral volume losswith ex vacuo dilatation of ventricles and cerebral sulci. Scatteredsubcortical and periventricular white matter foci demonstratinghypodensity that are nonspecific but most commonly seen in the setting ofchronic small vessel ischemic change. Basal cisterns appear normal. Mildto moderate arteriosclerotic calcification the cavernous segments theinternal carotid arteries bilaterally. Orbital ocular lens extractionswith prosthetic lens implantation. Paranasal sinuses and mastoid air cellsare well aerated. There is no acute fracture nor destructive process ofthe visualized osseous structures. IMPRESSION: 1. No CT evidence of an acute intracranial abnormality. 2. Moderate global cerebral volume loss and findings of chronic smallvessel ischemic change. 3. 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 Ordered By: THALIA VIEIRA Interpreted By: Reginaldo Gregg MD, 09/04/2024 10:44 AM us Thalia Vieira MD CT Final Result * XR SHOULDER LT 3V (09/04/2024 10:35 AM CDT) Anatomical Region Laterality Modality Shoulder Radiographic Sheeba ging 09/04/2024 10:3 7 AM CDT Impressions 09/04/2024 10:39 AM CDT IMPRESSION: No acute bony abnormality of the left shoulder. Ordered By: THALIA VIEIRA Interpreted By: Jordan Hoffman MD, 09/04/2024 10:37 AM Narrative 09/04/2024 10:39 AM CDT [address] [place] [address] Procedure(s): XR SHOULDER LT 3V Date of service: 09/04/2024 10:35 AM Provided clinical information: 73 years, Female, fall fall on left side yesterday. Procedure and materials: 3 views left shoulder. Comparison studies: None. Findings: No calcific tendinitis. No fracture, dislocation or acute bony abnormality left shoulder. No definite displaced fracture left ribs. No visualized left pneumothorax. Procedure Note Jordan Hoffman MD - 09/04/[address] [place] [address] Procedure(s): XR SHOULDER LT 3V Date of service: 09/04/2024 10:35 AM Provided clinical information: 73 years, Female, fall fall on leftside yesterday. Procedure and materials: 3 views left shoulder. Comparison studies: None. Findings: No calcific tendinitis. No fracture, dislocation or acute bony abnormality left shoulder. Nodefinite displaced fracture left ribs. No visualized left pneumothorax. IMPRESSION: No acute bony abnormality of the left shoulder. Ordered By: THALIA VIEIRA Interpreted By: Jordan Hoffman MD, 09/04/2024 10:37 AM us Thalia Vieira MD GENERAL IMAGING Final Result * XR FEMUR LT 2V (09/04/2024 10:35 AM CDT) Anatomical Region Laterality Modality Femur Radiographic Sheeba ging 09/04/2024 10:4 3 AM CDT Impressions 09/04/2024 10:44 AM CDT IMPRESSION: No acute bony abnormality. Calcific tendinitis about the greater trochanter. Ordered By: THALIA VIEIRA Interpreted By: Jordan Hoffman MD, 09/04/2024 10:43 AM Narrative 09/04/2024 10:44 AM CDT [address] [place] [address] Procedure(s): XR FEMUR LT 2V Date of service: 09/04/2024 10:35 AM Provided clinical information: 73 years, Female, fall Procedure and materials: AP and lateral view of the left femur. Comparison studies: None. Findings: No fracture, dislocation or acute bony abnormality about the left femur. Calcific tendinitis about the greater trochanter on the left. Procedure Note Jordan Hoffman MD - 09/04/[address] [place] [address] Procedure(s): XR FEMUR LT 2V Date of service: 09/04/2024 10:35 AM Provided clinical information: 73 years, Female, fall Procedure and materials: AP and lateral view of the left femur. Comparison studies: None. Findings: No fracture, dislocation or acute bony abnormality about the left femur.Calcific tendinitis about the greater trochanter on the left. IMPRESSION: No acute bony abnormality. Calcific tendinitis about the greatertrochanter. Ordered By: THALIA VIEIRA Interpreted By: Joradn Hoffman MD, 09/04/2024 10:43 AM Thalia Vieira MD GENERAL IMAGING Final Result * XR PELVIS+LT HIP 2V (09/04/2024 10:35 AM CDT) Anatomical Region Laterality Modality Hip, Pelvis Radiographic Sheeba ging 09/04/2024 10:4 0 AM CDT Impressions 09/04/2024 10:43 AM CDT IMPRESSION: No acute bony abnormality about the left hip. Calcific tendinitis about the greater trochanter on the left. Ordered By: THALIA VIEIRA Interpreted By: Jordan Hoffman MD, 09/04/2024 10:40 AM Narrative 09/04/2024 10:43 AM CDT [address] [place] [address] Procedure(s): XR PELVIS+LT HIP 2V Date of service: 09/04/2024 10:35 AM Provided clinical information: 73 years, Female, fall FALL YESTERDAY ON LEFT SIDE Procedure and materials: AP pelvis, AP and frog-leg view left hip. Comparison studies: None. Findings: The bony pelvis is intact. About the left hip no fracture, dislocation or acute bony abnormality. Calcific tendinitis is present about the greater trochanter. Vascular stents are present about the SPECT location of the common iliac arteries bilaterally and left iliac artery system. Procedure Note Jordan Hoffman MD - 09/04/2024 [place] [id number] [place] [address] Procedure(s): XR PELVIS+LT HIP 2V Date of service: 09/04/2024 10:35 AM Provided clinical information: 73 years, Female, fall FALL YESTERDAYON LEFT SIDE Procedure and materials: AP pelvis, AP and frog-leg view left hip. Comparison studies: None. Findings: The bony pelvis is intact. About the left hip no fracture, dislocation oracute bony abnormality. Calcific tendinitis is present about the greatertrochanter. Vascular stents are present about the SPECT location of the common iliacarteries bilaterally and left iliac artery system. IMPRESSION: No acute bony abnormality about the left hip. Calcific tendinitis aboutthe greater trochanter on the left. Ordered By: THALIA VIEIRA Interpreted By: Jordan Hoffman MD, 09/04/2024 10:40 AM us Thalia Vieira MD GENERAL IMAGING Final Result * PARTIAL THROMBOPLASTIN TIME,PTT (09/04/2024 10:05 AM CDT) PTT 32.5 27.0 - 36.8 SEC 09/04/2024 10:24 AM CDT [facility] 09/04/2024 10:0 5 AM CDT us Thalia Vieira MD LABORATORY Final Result Performing Organization Address [facility]/ZIP Co de Phone Number [facility] [address] [place] [address], [place] [phone] * (ABNORMAL) PROTIME/INR, VENOUS (09/04/2024 10:05 AM CDT) PROTIME 13.3(H) 9.1 - 12.4 SEC 09/04/2024 10:24 AM CDT [facility] INR 1.2 09/04/2024 10:24 AM CDT [facility] Comment: Recommend INR ranges for Oral Anticoagulant Therapy: Mechanical Cardiac Values 2.5-3.5 All others indication 2.0-3.0 09/04/2024 10:0 5 AM CDT us Thalia Vieira MD LABORATORY Final Result Performing Organization Address [facility]/ZIP Co de Phone Number [facility] [address] [place] [address], [place] [phone] * CK (CPK) (09/04/2024 10:05 AM CDT) CPK 79 26 - 192 U/L 09/04/2024 10:27 AM CDT [facility] 09/04/2024 10:0 5 AM CDT Thalia Vieira MD LABORATORY Final Result [facility] [address] [place] [address], * BONE DENSITY/DEXA (09/06/2021 9:51 AM CDT) [...] repeat imaging in one year Ordered By: NILDA ORTIZ Interpreted By: Dennis Ortiz, 09/06/2021 10:15 AM Procedure Note Nehemias [...] withrepeat imaging in one year Ordered By: NILDA ORTIZ Interpreted By: Dennis Ortiz, 09/06/2021 10:15 AM us Nilda ANN DEXA Final Result * LIPID PANEL (01/01/2019 6:15 AM CDT) CHOLESTEROL 166 <200 MG/DL 01/01/2019 7:42 AM CDT [facility] TRIGLYCERIDES 129 <150 MG/DL 01/01/2019 7:42 AM CDT [facility] HDL 44 >40.0 MG/DL 01/01/2019 7:42 AM T [facility] LDL (CALCULATED) 96 <100 MG/DL 01/02/20 19 7:42 AM T [facility] NON HDL CHOLESTEROL 122 <130 MG/DL 01/01 7:42 AM T [facility] CHOL/HDL RATIO 3.8 0.0 - 4.5 01/01/2019 7:42 AM T [facility] VLDL CALCULATION 26 5 - 55 MG/DL 01/01/2019 7:42 AM T [facility] LIPID INTERPRETATION 01/01/2019 7:42 AM T [facility] Comment: [facility] REPORT RECOMMENDATIONS: ADULT CHILD LOW RISK: CHOLESTEROL <200 <170 TRIGLYCERIDE <150 --- HDL >=60 --- LDL <100 <110 BORDERLINE: CHOLESTEROL 200-239 170-199 TRIGLYCERIDE 150-199 --- HDL 40-59 --- LDL 100-159 110-129 HIGH RISK: CHOLESTEROL >=240 >=200 TRIGLYCERIDE >=200 --- HDL <40 --- LDL >=160 >=130 01/01/2019 6:15 AM CDT us Dayna Gold MD LABORATORY Final Result [facility] [address] [place] [address], from Last 3 Months or Most Recently Relevant to Health Maintenance Insurance MEDICARE MEDICARE [facility] Advance Directives * Full Code (Latest Code Status on File) Date Activated Date Inactivated Comments 09/11/2024 10:07 AM * Full Code Date Activated Date Inactivated Comments 09/08/2024 4:00 PM 09/08/2024 7:30 PM * Full Code Date Activated Date Inactivated Comments 09/04/2024 2:34 PM 09/07/2024 5:31 PM * Full Code Date Activated Date Inactivated Comments 10/14/2021 10:15 AM 10/14/2021 5:50 PM * Full Code Date Activated Date Inactivated Comments 12/31/2018 11:22 PM 01/01/2019 8:48 PM 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
[2024-12-01 14:17] VITALS: BP 101/49; PULSE 56; RESP 14; TEMP 36.3; O2SAT 98
--- NOTE | 2024-12-01 14:23 | ECG_ITS ---
Test Date: 2024-12-01 14:36:28 Measurements Intervals Sec[place] Rate: 54 P: 69 CT: 144 QRS: 48 QRSD: 96 T: 81 QT: 468 QTc: 444 Interpretive Statements SINUS BRADYCARDIA LEFT VENTRICULAR HYPERTROPHY AND ST-T CHANGE MINIMAL Q WAVES- INFERIOR LEADS BORDERLINE ST-T WAVE ABNORMALITY- HIGH LAT LEADS BASELINE ARTIFACT- I, II, III, AVR, AVL, AVF, V5 BORDERLINE ECG Compared to ECG 11/13/2024 20:21:05 Possible ischemia no longer present Electronically Signed On 12-01-2024 15:27:46 CDT by Sj Vang D.O.
--- NOTE | 2024-12-01 14:27 | ED_ITS ---
HPI - Weakness General Chief complaint: Weakness <Shellyjuancarlos Chatterjee, ACID SUPERVISOR - Last Filed: 12/01/24 14:29> Stated complaint: Weakness, Lethargic, A/O x 4 <Shelly Chatterjee APRN - Last Filed: 12/01/24 14:29> Time Seen by Provider: 12/01/24 14:20 <Shelly Chatterjee ACID SUPERVISOR - Last Filed: 12/01/24 14:29> Focused HPI: Patient is a 73-year-old female who presents to the ER with complaints of weakness and tiredness. She reports her symptoms started earlier today. Patient is alert and oriented x4. She currently lives at [facility]. Patient endorses a history of COPD and high blood pressure. She is on 2 L nasal cannula at baseline. Patient endorses intermittent coughing, which is baseline for her. She she denies any chest pain, recent falls, headache, or recent fevers. GENERAL: Ill-appearing and in no acute distress. Generalized weakness HEAD: Normocephalic, atraumatic. CHEST: Clear to auscultation. ?No respiratory distress. 2L NC HEART: Bradycardia, regular rhythm NEURO: ?Alert and oriented x3. Patient screened in triage and initial orders placed.? ?Additional care and disposition to be based upon?diagnostic testing and treatment. <Shelly Chatterjee, ACID SUPERVISOR - Last Filed: 12/01/24 14:29> Focused HPI: Patient is a 73-year-old female who presents to the ER with complaints of weakness and tiredness. She reports her symptoms started earlier today. Patient is alert and oriented x4. She currently is at [facility]. Patient endorses a history of COPD and high blood pressure. She is on 2 L nasal cannula at baseline. Patient endorses intermittent coughing, which is baseline for her. She she denies any chest pain, recent falls, headache, or recent fevers. GENERAL: Ill-appearing and in no acute distress. Generalized weakness HEAD: Normocephalic, atraumatic. CHEST: Clear to auscultation. ?No respiratory distress. 2L NC HEART: Bradycardia, regular rhythm NEURO: ?Alert and oriented x3. Patient screened in triage and initial orders placed.? ?Additional care and disposition to be based upon?diagnostic testing and treatment. <Tosin Laurent PA-C - Last Filed: 12/01/24 23:26> Related Data Home medications: Home Medications ?Medication ?Instructions ?Recorded ?Confirmed ?Last Taken ?Type melatonin 5 mg capsule 5 mg PO QHS 08/29/22 12/02/24 11/30/24 History guaifenesin 600 mg tablet, 600 mg PO Q12H PRN congestion 11/21/24 12/02/24 11/21/24 History extended release 12 hr acetaminophen 500 mg capsule 500 mg PO Q4H PRN pain 12/02/24 12/02/24 12/01/24 History albuterol sulfate 1.25 mg/3 mL 2.5 mg inhalation Q6H 12/02/24 12/02/24 12/01/24 History solution for nebulization dronabinol 2.5 mg capsule 2.5 mg PO BID 12/02/24 12/02/24 12/01/24 History enoxaparin 40 mg/0.4 mL 40 mg subcut DAILY 12/02/24 12/02/24 12/01/24 History subcutaneous syringe ondansetron HCl 4 mg tablet 4 mg PO Q6H PRN nausea and vomiting 12/02/24 12/02/24 11/26/24 History potassium chloride 20 mEq 20 meq PO DAILY 12/02/24 12/02/24 12/01/24 History tablet,extended release(part/cryst) (Klor-Con M) <Shelly Chatterjee APRN - Last Filed: 12/01/24 14:29> Allergies/Adverse reactions: Allergies Allergy/AdvReac Type Severity Reaction Status Date / Time Penicillins Allergy Severe BREATHING Verified 12/01/24 13:46 DIFFICULTY, SWELLING <Shelly Chatterjee APRN - Last Filed: 12/01/24 14:29> Review of Systems 2 Review of Systems: All systems reviewed & are unremarkable except as noted in HPI and below <Tosin Laurent PA-C - Last Filed: 12/01/24 23:26> [facility] Past Medical History Medical History: Medical History (Updated 12/01/24 @ 21:41 by Jacqui Shen PA-C) Nonobstructive atherosclerosis of coronary artery Cerebrovascular accident Tobacco abuse Carotid artery disease Peripheral vascular disease Chronic obstructive pulmonary disease Transient ischemic attack Gastroesophageal reflux disease Hypertension Osteoporosis History of radiation therapy right lower lobe 2022 Malignant neoplasm of lower lobe, right bronchus or lung Depression Dyslipidemia Anxiety <Shelly Chatterjee APRN - Last Filed: 12/01/24 14:29> Surgical History Surgical History: Surgical History (Updated 12/01/24 @ 20:24 by Jacqui Shen PA-C) History of bilateral carotid endarterectomy Status post angioplasty with stent iliac, subclavian, renal arteries History of cholecystectomy History of total hysterectomy with bilateral salpingo-oophorectomy (BSO) <Shelly Chatterjee APRN - Last Filed: 12/01/24 14:29> Family History Family History: Family History Sibling Cancer of kidney Sibling Hypertension Father Hypertension <Shelly Chatterjee APRN - Last Filed: 12/01/24 14:29> Social History Social History: Social History Social History: Surrogate medical decision maker: Yaakov Bocanegra, son. Code status: Full code. Smoking packs per day: 2 Smoking cigarettes per day: 40.0 Years smoked: 40 Smoking pack-years: 80.00 Smoking status: Never smoker Tobacco type: cigarettes Second hand tobacco smoke exposure: No Additional smoking assessment comments: weaning off cigarettes Alcohol intake: never Drinks per week: 5 Substance use: never Substance use type: does not use Do You Feel Safe in your Home?: Yes Lack of Transportation: No Lack of Food: Never True Current Housing: I Have Housing Concerned About Future Housing: No Difficulty Paying Gas/Electric Bills: No Difficulty Paying for Meds: No Currently Unemployed: No Education: High School Diploma/GED Difficulty w/ Childcare or Family Care: No Living arrangements: alone Occupation/Education: retired Spiritual care concerns: No <Shelly Chatterjee APRN - Last Filed: 12/01/24 14:29> Exam 2 Narrative: GENERAL: Chronically ill-appearing, well-nourished, and in no acute distress. HEAD: Normocephalic, atraumatic. EYES: EOMI. ENT: Nares clear, no rhinorrhea or epistaxis. Mucous membranes moist. Oropharynx without tonsillar hypertrophy exudate or other lesions. CHEST No respiratory distress. Lung sounds coarse with scattered wheezing. No rales or rhonchi HEART: Regular rate and rhythm. No murmur heard. Normal peripheral pulses. ABDOMEN: Soft, nontender, nondistended, normal active bowel sounds. EXTREMITIES: Normal range of motion. No edema. Strength equal in bilateral upper and lower extremities (4/5) SKIN: Warm, dry, no rash. NEURO: No focal deficits. Alert and oriented x3. CN II-XII grossly intact PSYCH: Normal mood and affect <Tosin Laurent PA-C - Last Filed: 12/01/24 23:26> Course Course Emergency Course: patient updated on her workup and recommendation for admission <Tosin Laurent PA-C - Last Filed: 12/01/24 23:26> FIBRE COMPOSITE TECHNICIAN/PA Physician Supervision Patient was admitted. I was available for consultation while patient was in the emergency department but did not personally examine her and was not directly involved in her care. <Maryse Baird MD - Last Filed: 12/02/24 18:01> Consultations Consultation #1: Spoke with hospitalist about patient and workup who accepts admission < Tosin Laurent PA-C - Last Filed: 12/01/24 23:26> Date: 12/01/24 <Tosin Laurent PA-C - Last Filed: 12/01/24 23:26> Vital Signs Vital signs: Vital Signs Temperature 97.3 F L 12/01/24 14:17 Pulse Rate 56 L 12/01/24 14:17 Respiratory Rate 14 12/01/24 14:17 Blood Pressure 101/49 L 12/01/24 14:17 Pulse Oximetry 98 12/01/24 14:17 Oxygen Delivery Nasal Cannula 12/01/24 14:17 Oxygen Flow Rate 2 12/01/24 14:17 Temperature 97.1 F L 12/02/24 16:00 Pulse Rate 68 12/02/24 16:00 Respiratory Rate 18 12/02/24 16:00 Blood Pressure 144/51 H 12/02/24 16:00 Pulse Oximetry 100 12/02/24 16:00 Oxygen Delivery Room Air 12/02/24 09:12 Oxygen Flow Rate 2 12/02/24 08:00 <Shelly Chatterjee, ACID SUPERVISOR - Last Filed: 12/01/24 14:29> Vital Signs Temperature 97.3 F L 12/01/24 14:17 Pulse Rate 56 L 12/01/24 14:17 Respiratory Rate 14 12/01/24 14:17 Blood Pressure 101/49 L 12/01/24 14:17 Pulse Oximetry 98 12/01/24 14:17 Oxygen Delivery Nasal Cannula 12/01/24 14:17 Oxygen Flow Rate 2 12/01/24 14:17 Temperature 97.1 F L 12/02/24 16:00 Pulse Rate 68 12/02/24 16:00 Respiratory Rate 18 12/02/24 16:00 Blood Pressure 144/51 H 12/02/24 16:00 Pulse Oximetry 100 12/02/24 16:00 Oxygen Delivery Room Air 12/02/24 09:12 Oxygen Flow Rate 2 12/02/24 08:00 <Tosin Laurent PA-C - Last Filed: 12/01/24 23:26> Vital Signs Temperature 97.3 F L 12/01/24 14:17 Pulse Rate 56 L 12/01/24 14:17 Respiratory Rate 14 12/01/24 14:17 Blood Pressure 101/49 L 12/01/24 14:17 Pulse Oximetry 98 12/01/24 14:17 Oxygen Delivery Nasal Cannula 12/01/24 14:17 Oxygen Flow Rate 2 12/01/24 14:17 Temperature 97.1 F L 12/02/24 16:00 Pulse Rate 68 12/02/24 16:00 Respiratory Rate 18 12/02/24 16:00 Blood Pressure 144/51 H 12/02/24 16:00 Pulse Oximetry 100 12/02/24 16:00 Oxygen Delivery Room Air 12/02/24 09:12 Oxygen Flow Rate 2 12/02/24 08:00 <Maryse Baird MD - Last Filed: 12/02/24 18:01> MDM - Weakness MDM Narrative Medical decision making narrative: Patient presents the emergency department for weakness, low blood pressures, cough. Recently admitted for pneumonia, discharged to our rehab facility. Patient's oxygen saturation is stable on room air. Blood pressure soft initially, this responded to IV fluids. She is afebrile and nontoxic appearing. CBC with leukocytosis to 16.3. Metabolic panel evidence of acute kidney injury, hyperkalemia. Urine without evidence of infection. Influenza, RSV and COVID screens are negative. Chest x-ray showing her known right lower lobe masses, edema versus pneumonia. Blood cultures drawn, patient will be started on IV antibiotics. patient updated on her workup and recommendation for admission. Spoke with hospitalist about patient and workup who accepts admission <Tosin Laurent PA-C - Last Filed: 12/01/24 23:26> Differential Diagnosis Differential diagnosis: Likely dehydration and other (electrolyte derangement, UTI, pneumonia) < Tosin Laurent PA-C - Last Filed: 12/01/24 23:26> Lab Data Attestation: I reviewed the patient's lab results. <Tosin Laurent PA-C - Last Filed: 12/01/24 23:26> Result diagrams: 12/02/24 06:05 12/02/24 06:05 <Shelly Chatterjee APRN - Last Filed: 12/01/24 14:29> Labs: Lab Results 12/01/24 12/01/24 12/01/24 Range/Units 14:52 14:54 15:52 WBC 16.3 H (4.5-10.0) K/mm3 RBC 4.53 (4.2-5.4) M/mm3 Hgb 13.5 (12.0-15.0) g/dL Hct 43.8 (37.0-47.0) % MCV 96.7 (80-100) fl MCH 29.8 (26-34) pg MCHC 30.8 L (32-36) g/dl RDW 15.1 H (11.5-14.5) % Plt Count 301 (150-375) k/mm3 MPV 10.3 (7.4-10.4) fl Immature Gran % (Auto) 1.0 H (0-0.5) % Neut % (Auto) 83.5 H (45.5-73.1) % Lymph % (Auto) 9.3 L (18.3-44.2) % [place] % (Auto) 5.2 (2.6-8.5) % Eos % (Auto) 0.6 (0-4.4) % Baso % (Auto) 0.4 (0.2-1.2) % Lymph # (Auto) 1.51 (0.9-3.2) K/mm3 [place] # (Auto) 0.8 H (0.1-0.6) K/mm3 Eos # (Auto) 0.1 (0-0.3) K/mm3 Baso # (Auto) 0.1 (0.0-0.1) K/mm3 Abs Immat Gran (auto) 0.16 H (0.00-0.031) K/mm3 Absolute Neuts (auto) 13.6 H (1.3-6.7) K/mm3 Absolute Nucleated RBC 0.000 (0.0-0.012) K/mm3 Nucleated RBC % 0.0 (0.0-0.2) % PT 14.0 (11.1-14.7) Seconds INR 1.1 APTT 35.4 (22.3-36.8) Seconds Sodium 135 L (137-145) mmol/L Potassium 5.5 H (3.4-5.0) mmol/L Chloride 99 (98-107) mmol/L Carbon Dioxide 27 (22-30) mmol/L Anion Gap 9 (4-12) mmol/L BUN 36 H (7-17) mg/dL Creatinine 1.58 H (0.7-1.0) mg/dL Estim Creat Clear Calc 24 ml/min Estimated GFR 32 L (59 - ) Glucose 123 H (65-110) mg/dL POC Capillary Glucose 127 H (65-105) mg/dl Lactic Acid 1.7 (0.7-2.0) mmol/L Calcium 9.4 (8.4-10.2) mg/dL Magnesium (1.6-2.3) mg/dL Total Bilirubin 1.0 (0.2-1.3) mg/dL AST 34 (14-36) U/L ALT 29 (6-35) U/L Alkaline Phosphatase 107 (38-126) U/L Total Creatine Kinase 23 L (30-135) U/L Troponin I 0.024 (0.000-0.034) ng/mL Total Protein 7.2 (6.3-8.2) g/dL Albumin 3.7 (3.5-5.1) g/dL Procalcitonin ng/mL Urine Color Yellow (Yellow) Urine Appearance Clear (Clear) Urine pH 5.0 (5.0-9.0) Ur Specific [place] 1.018 (1.001-1.035) Urine Protein Negative (Negative) mg/dL Urine Glucose (UA) Negative (Negative) mg/dL Urine Ketones Trace H (Negative) mg/dL Ur Blood (Man) Negative (Negative) Urine Nitrate Negative (Negative) Urine Bilirubin Negative (Negative) Urine Urobilinogen 0.2 (<2.0) mg/dL Leukocyte Esterase Rfl Negative (Negative) TERESITA/UL Influenza A (RT-PCR) (Negative) Influenza B (RT-PCR) (Negative) RSV (RT-PCR) (Negative) SARS-CoV-2 RNA (RT-PCR) (Negative) 12/01/24 12/01/24 12/02/24 Range/Units 17:39 22:11 06:05 WBC 13.6 H (4.5-10.0) K/mm3 RBC 4.00 L (4.2-5.4) M/mm3 Hgb 11.9 L (12.0-15.0) g/dL Hct 39.5 (37.0-47.0) % MCV 98.8 (80-100) fl MCH 29.8 (26-34) pg MCHC 30.1 L (32-36) g/dl RDW 14.9 H (11.5-14.5) % Plt Count 249 (150-375) k/mm3 MPV 10.3 (7.4-10.4) fl Immature Gran % (Auto) (0-0.5) % Neut % (Auto) (45.5-73.1) % Lymph % (Auto) (18.3-44.2) % [place] % (Auto) (2.6-8.5) % Eos % (Auto) (0-4.4) % Baso % (Auto) (0.2-1.2) % Lymph # (Auto) (0.9-3.2) K/mm3 [place] # (Auto) (0.1-0.6) K/mm3 Eos # (Auto) (0-0.3) K/mm3 Baso # (Auto) (0.0-0.1) K/mm3 Abs Immat Gran (auto) (0.00-0.031) K/mm3 Absolute Neuts (auto) (1.3-6.7) K/mm3 Absolute Nucleated RBC (0.0-0.012) K/mm3 Nucleated RBC % (0.0-0.2) % PT (11.1-14.7) Seconds INR APTT (22.3-36.8) Seconds Sodium 134 L (137-145) mmol/L Potassium 5.2 H 5.4 H (3.4-5.0) mmol/L Chloride 104 (98-107) mmol/L Carbon Dioxide 21 L (22-30) mmol/L Anion Gap 9 (4-12) mmol/L BUN 37 H (7-17) mg/dL Creatinine 1.37 H (0.7-1.0) mg/dL Estim Creat Clear Calc 27 ml/min Estimated GFR 38 L (59 - ) Glucose 94 (65-110) mg/dL POC Capillary Glucose (65-105) mg/dl Lactic Acid (0.7-2.0) mmol/L Calcium 8.1 L (8.4-10.2) mg/dL Magnesium 2.1 (1.6-2.3) mg/dL Total Bilirubin (0.2-1.3) mg/dL AST (14-36) U/L ALT (6-35) U/L Alkaline Phosphatase (38-126) U/L Total Creatine Kinase (30-135) U/L Troponin I (0.000-0.034) ng/mL Total Protein (6.3-8.2) g/dL Albumin (3.5-5.1) g/dL Procalcitonin 0.5 ng/mL Urine Color (Yellow) Urine Appearance (Clear) Urine pH (5.0-9.0) Ur Specific [place] (1.001-1.035) Urine Protein (Negative) mg/dL Urine Glucose (UA) (Negative) mg/dL Urine Ketones (Negative) mg/dL Ur Blood (Man) (Negative) Urine Nitrate (Negative) Urine Bilirubin (Negative) Urine Urobilinogen (<2.0) mg/dL Leukocyte Esterase Rfl (Negative) TERESITA/UL Influenza A (RT-PCR) Negative (Negative) Influenza B (RT-PCR) Negative (Negative) RSV (RT-PCR) Negative (Negative) SARS-CoV-2 RNA (RT-PCR) Negative (Negative) <Shelly Chatterjee, ACID SUPERVISOR - Last Filed: 12/01/24 14:29> Lab Results 12/01/24 12/01/24 12/01/24 Range/Units 14:52 14:54 15:52 WBC 16.3 H (4.5-10.0) K/mm3 RBC 4.53 (4.2-5.4) M/mm3 Hgb 13.5 (12.0-15.0) g/dL Hct 43.8 (37.0-47.0) % MCV 96.7 (80-100) fl MCH 29.8 (26-34) pg MCHC 30.8 L (32-36) g/dl RDW 15.1 H (11.5-14.5) % Plt Count 301 (150-375) k/mm3 MPV 10.3 (7.4-10.4) fl Immature Gran % (Auto) 1.0 H (0-0.5) % Neut % (Auto) 83.5 H (45.5-73.1) % Lymph % (Auto) 9.3 L (18.3-44.2) % [place] % (Auto) 5.2 (2.6-8.5) % Eos % (Auto) 0.6 (0-4.4) % Baso % (Auto) 0.4 (0.2-1.2) % Lymph # (Auto) 1.51 (0.9-3.2) K/mm3 [place] # (Auto) 0.8 H (0.1-0.6) K/mm3 Eos # (Auto) 0.1 (0-0.3) K/mm3 Baso # (Auto) 0.1 (0.0-0.1) K/mm3 Abs Immat Gran (auto) 0.16 H (0.00-0.031) K/mm3 Absolute Neuts (auto) 13.6 H (1.3-6.7) K/mm3 Absolute Nucleated RBC 0.000 (0.0-0.012) K/mm3 Nucleated RBC % 0.0 (0.0-0.2) % PT 14.0 (11.1-14.7) Seconds INR 1.1 APTT 35.4 (22.3-36.8) Seconds Sodium 135 L (137-145) mmol/L Potassium 5.5 H (3.4-5.0) mmol/L Chloride 99 (98-107) mmol/L Carbon Dioxide 27 (22-30) mmol/L Anion Gap 9 (4-12) mmol/L BUN 36 H (7-17) mg/dL Creatinine 1.58 H (0.7-1.0) mg/dL Estim Creat Clear Calc 24 ml/min Estimated GFR 32 L (59 - ) Glucose 123 H (65-110) mg/dL POC Capillary Glucose 127 H (65-105) mg/dl Lactic Acid 1.7 (0.7-2.0) mmol/L Calcium 9.4 (8.4-10.2) mg/dL Magnesium (1.6-2.3) mg/dL Total Bilirubin 1.0 (0.2-1.3) mg/dL AST 34 (14-36) U/L ALT 29 (6-35) U/L Alkaline Phosphatase 107 (38-126) U/L Total Creatine Kinase 23 L (30-135) U/L Troponin I 0.024 (0.000-0.034) ng/mL Total Protein 7.2 (6.3-8.2) g/dL Albumin 3.7 (3.5-5.1) g/dL Procalcitonin ng/mL Urine Color Yellow (Yellow) Urine Appearance Clear (Clear) Urine pH 5.0 (5.0-9.0) Ur Specific [place] 1.018 (1.001-1.035) Urine Protein Negative (Negative) mg/dL Urine Glucose (UA) Negative (Negative) mg/dL Urine Ketones Trace H (Negative) mg/dL Ur Blood (Man) Negative (Negative) Urine Nitrate Negative (Negative) Urine Bilirubin Negative (Negative) Urine Urobilinogen 0.2 (<2.0) mg/dL Leukocyte Esterase Rfl Negative (Negative) TERESITA/UL Influenza A (RT-PCR) (Negative) Influenza B (RT-PCR) (Negative) RSV (RT-PCR) (Negative) SARS-CoV-2 RNA (RT-PCR) (Negative) 12/01/24 12/01/24 12/02/24 Range/Units 17:39 22:11 06:05 WBC 13.6 H (4.5-10.0) K/mm3 RBC 4.00 L (4.2-5.4) M/mm3 Hgb 11.9 L (12.0-15.0) g/dL Hct 39.5 (37.0-47.0) % MCV 98.8 (80-100) fl MCH 29.8 (26-34) pg MCHC 30.1 L (32-36) g/dl RDW 14.9 H (11.5-14.5) % Plt Count 249 (150-375) k/mm3 MPV 10.3 (7.4-10.4) fl Immature Gran % (Auto) (0-0.5) % Neut % (Auto) (45.5-73.1) % Lymph % (Auto) (18.3-44.2) % [place] % (Auto) (2.6-8.5) % Eos % (Auto) (0-4.4) % Baso % (Auto) (0.2-1.2) % Lymph # (Auto) (0.9-3.2) K/mm3 [place] # (Auto) (0.1-0.6) K/mm3 Eos # (Auto) (0-0.3) K/mm3 Baso # (Auto) (0.0-0.1) K/mm3 Abs Immat Gran (auto) (0.00-0.031) K/mm3 Absolute Neuts (auto) (1.3-6.7) K/mm3 Absolute Nucleated RBC (0.0-0.012) K/mm3 Nucleated RBC % (0.0-0.2) % PT (11.1-14.7) Seconds INR APTT (22.3-36.8) Seconds Sodium 134 L (137-145) mmol/L Potassium 5.2 H 5.4 H (3.4-5.0) mmol/L Chloride 104 (98-107) mmol/L Carbon Dioxide 21 L (22-30) mmol/L Anion Gap 9 (4-12) mmol/L BUN 37 H (7-17) mg/dL Creatinine 1.37 H (0.7-1.0) mg/dL Estim Creat Clear Calc 27 ml/min Estimated GFR 38 L (59 - ) Glucose 94 (65-110) mg/dL POC Capillary Glucose (65-105) mg/dl Lactic Acid (0.7-2.0) mmol/L Calcium 8.1 L (8.4-10.2) mg/dL Magnesium 2.1 (1.6-2.3) mg/dL Total Bilirubin (0.2-1.3) mg/dL AST (14-36) U/L ALT (6-35) U/L Alkaline Phosphatase (38-126) U/L Total Creatine Kinase (30-135) U/L Troponin I (0.000-0.034) ng/mL Total Protein (6.3-8.2) g/dL Albumin (3.5-5.1) g/dL Procalcitonin 0.5 ng/mL Urine Color (Yellow) Urine Appearance (Clear) Urine pH (5.0-9.0) Ur Specific [place] (1.001-1.035) Urine Protein (Negative) mg/dL Urine Glucose (UA) (Negative) mg/dL Urine Ketones (Negative) mg/dL Ur Blood (Man) (Negative) Urine Nitrate (Negative) Urine Bilirubin (Negative) Urine Urobilinogen (<2.0) mg/dL Leukocyte Esterase Rfl (Negative) TERESITA/UL Influenza A (RT-PCR) Negative (Negative) Influenza B (RT-PCR) Negative (Negative) RSV (RT-PCR) Negative (Negative) SARS-CoV-2 RNA (RT-PCR) Negative (Negative) <Tosin Laurent PA-C - Last Filed: 12/01/24 23:26> Lab Results 12/01/24 12/01/24 12/01/24 Range/Units 14:52 14:54 15:52 WBC 16.3 H (4.5-10.0) K/mm3 RBC 4.53 (4.2-5.4) M/mm3 Hgb 13.5 (12.0-15.0) g/dL Hct 43.8 (37.0-47.0) % MCV 96.7 (80-100) fl MCH 29.8 (26-34) pg MCHC 30.8 L (32-36) g/dl RDW 15.1 H (11.5-14.5) % Plt Count 301 (150-375) k/mm3 MPV 10.3 (7.4-10.4) fl Immature Gran % (Auto) 1.0 H (0-0.5) % Neut % (Auto) 83.5 H (45.5-73.1) % Lymph % (Auto) 9.3 L (18.3-44.2) % [place] % (Auto) 5.2 (2.6-8.5) % Eos % (Auto) 0.6 (0-4.4) % Baso % (Auto) 0.4 (0.2-1.2) % Lymph # (Auto) 1.51 (0.9-3.2) K/mm3 [place] # (Auto) 0.8 H (0.1-0.6) K/mm3 Eos # (Auto) 0.1 (0-0.3) K/mm3 Baso # (Auto) 0.1 (0.0-0.1) K/mm3 Abs Immat Gran (auto) 0.16 H (0.00-0.031) K/mm3 Absolute Neuts (auto) 13.6 H (1.3-6.7) K/mm3 Absolute Nucleated RBC 0.000 (0.0-0.012) K/mm3 Nucleated RBC % 0.0 (0.0-0.2) % PT 14.0 (11.1-14.7) Seconds INR 1.1 APTT 35.4 (22.3-36.8) Seconds Sodium 135 L (137-145) mmol/L Potassium 5.5 H (3.4-5.0) mmol/L Chloride 99 (98-107) mmol/L Carbon Dioxide 27 (22-30) mmol/L Anion Gap 9 (4-12) mmol/L BUN 36 H (7-17) mg/dL Creatinine 1.58 H (0.7-1.0) mg/dL Estim Creat Clear Calc 24 ml/min Estimated GFR 32 L (59 - ) Glucose 123 H (65-110) mg/dL POC Capillary Glucose 127 H (65-105) mg/dl Lactic Acid 1.7 (0.7-2.0) mmol/L Calcium 9.4 (8.4-10.2) mg/dL Magnesium (1.6-2.3) mg/dL Total Bilirubin 1.0 (0.2-1.3) mg/dL AST 34 (14-36) U/L ALT 29 (6-35) U/L Alkaline Phosphatase 107 (38-126) U/L Total Creatine Kinase 23 L (30-135) U/L Troponin I 0.024 (0.000-0.034) ng/mL Total Protein 7.2 (6.3-8.2) g/dL Albumin 3.7 (3.5-5.1) g/dL Procalcitonin ng/mL Urine Color Yellow (Yellow) Urine Appearance Clear (Clear) Urine pH 5.0 (5.0-9.0) Ur Specific [place] 1.018 (1.001-1.035) Urine Protein Negative (Negative) mg/dL Urine Glucose (UA) Negative (Negative) mg/dL Urine Ketones Trace H (Negative) mg/dL Ur Blood (Man) Negative (Negative) Urine Nitrate Negative (Negative) Urine Bilirubin Negative (Negative) Urine Urobilinogen 0.2 (<2.0) mg/dL Leukocyte Esterase Rfl Negative (Negative) TERESITA/UL Influenza A (RT-PCR) (Negative) Influenza B (RT-PCR) (Negative) RSV (RT-PCR) (Negative) SARS-CoV-2 RNA (RT-PCR) (Negative) 12/01/24 12/01/24 12/02/24 Range/Units 17:39 22:11 06:05 WBC 13.6 H (4.5-10.0) K/mm3 RBC 4.00 L (4.2-5.4) M/mm3 Hgb 11.9 L (12.0-15.0) g/dL Hct 39.5 (37.0-47.0) % MCV 98.8 (80-100) fl MCH 29.8 (26-34) pg MCHC 30.1 L (32-36) g/dl RDW 14.9 H (11.5-14.5) % Plt Count 249 (150-375) k/mm3 MPV 10.3 (7.4-10.4) fl Immature Gran % (Auto) (0-0.5) % Neut % (Auto) (45.5-73.1) % Lymph % (Auto) (18.3-44.2) % [place] % (Auto) (2.6-8.5) % Eos % (Auto) (0-4.4) % Baso % (Auto) (0.2-1.2) % Lymph # (Auto) (0.9-3.2) K/mm3 [place] # (Auto) (0.1-0.6) K/mm3 Eos # (Auto) (0-0.3) K/mm3 Baso # (Auto) (0.0-0.1) K/mm3 Abs Immat Gran (auto) (0.00-0.031) K/mm3 Absolute Neuts (auto) (1.3-6.7) K/mm3 Absolute Nucleated RBC (0.0-0.012) K/mm3 Nucleated RBC % (0.0-0.2) % PT (11.1-14.7) Seconds INR APTT (22.3-36.8) Seconds Sodium 134 L (137-145) mmol/L Potassium 5.2 H 5.4 H (3.4-5.0) mmol/L Chloride 104 (98-107) mmol/L Carbon Dioxide 21 L (22-30) mmol/L Anion Gap 9 (4-12) mmol/L BUN 37 H (7-17) mg/dL Creatinine 1.37 H (0.7-1.0) mg/dL Estim Creat Clear Calc 27 ml/min Estimated GFR 38 L (59 - ) Glucose 94 (65-110) mg/dL POC Capillary Glucose (65-105) mg/dl Lactic Acid (0.7-2.0) mmol/L Calcium 8.1 L (8.4-10.2) mg/dL Magnesium 2.1 (1.6-2.3) mg/dL Total Bilirubin (0.2-1.3) mg/dL AST (14-36) U/L ALT (6-35) U/L Alkaline Phosphatase (38-126) U/L Total Creatine Kinase (30-135) U/L Troponin I (0.000-0.034) ng/mL Total Protein (6.3-8.2) g/dL Albumin (3.5-5.1) g/dL Procalcitonin 0.5 ng/mL Urine Color (Yellow) Urine Appearance (Clear) Urine pH (5.0-9.0) Ur Specific [place] (1.001-1.035) Urine Protein (Negative) mg/dL Urine Glucose (UA) (Negative) mg/dL Urine Ketones (Negative) mg/dL Ur Blood (Man) (Negative) Urine Nitrate (Negative) Urine Bilirubin (Negative) Urine Urobilinogen (<2.0) mg/dL Leukocyte Esterase Rfl (Negative) TERESITA/UL Influenza A (RT-PCR) Negative (Negative) Influenza B (RT-PCR) Negative (Negative) RSV (RT-PCR) Negative (Negative) SARS-CoV-2 RNA (RT-PCR) Negative (Negative) <Maryse Baird MD - Last Filed: 12/02/24 18:01> Imaging Data Radiologist's impression: ITS Impressions Chest X-Ray 12/01/24 15:19 IMPRESSION: Stable right lower lobe masses. Interstitial opacities in the peripheral and lower right lung may represent asymmetric edema or infection/pneumonitis. <Tosin Laurent PA-C - Last Filed: 12/01/24 23:26> Critical Care Time Critical Care Time Critical Care Time: Yes <Tosin Laurent PA-C - Last Filed: 12/01/24 23:26> Total Critical Care Time: 35 <Tosin Laurent PA-C - Last Filed: 12/01/24 23:26> Discharge Plan Discharge Clinical Impression: Acute kidney injury, Hyperkalemia, Dehydration Pneumonia Qualifiers: Pneumonia type: due to unspecified organism Laterality: right Lung location: l ower lobe of lung Qualified Code(s): J18.9 - Pneumonia, unspecified organism <Shelly Chatterjee APRN - Last Filed: 12/01/24 14:29> Patient Disposition: Still a Patient <Shelly Chatterjee APRN - Last Filed: 12/01/24 14:29> Condition: Stable <Shelly Chatterjee APRN - Last Filed: 12/01/24 14:29>
[2024-12-01 14:47] VITALS: BP 116/45; PULSE 53; RESP 18; O2SAT 99
[2024-12-01 15:00] LABS: Hematocrit 43.8 % (37.0-47.0); Hemoglobin 13.5 g/dL (12.0-15.0); Immature Granulocyte Percent A 1.0 % (0-0.5); Lymphocytes Absolute Auto 1.51 K/mm3 (0.9-3.2); Mean Corpuscular HGB Conc 30.8 g/dl (32-36); Mean Corpuscular Hemoglobin 29.8 pg (26-34); Mean Corpuscular Volume 96.7 fl (80-100); Nucleated Red Blood Cells Absolute Auto 0.000 K/mm3 (0.0-0.012); Nucleated Red Blood Cells Perc 0.0 % (0.0-0.2); Platelet Count Result 301 k/mm3 (150-375); Red Blood Count 4.53 M/mm3 (4.2-5.4); White Blood Count 16.3 K/mm3 (4.5-10.0)
[2024-12-01 15:11] LABS: INR 1.1; Prothrombin Time 14.0 Seconds (11.1-14.7)
[2024-12-01 15:12] LABS: Partial Thromboplastin Time 35.4 Seconds (22.3-36.8)
[2024-12-01 15:18] LABS: Alanine Aminotransferase 29 U/L (6-35); Albumin Level 3.7 g/dL (3.5-5.1); Alkaline Phosphatase 107 U/L (38-126); Anion Gap 9 mmol/L (4-12); Aspartate Amino Transferase 34 U/L (14-36); Bilirubin,Total 1.0 mg/dL (0.2-1.3); Blood Urea Nitrogen 36 mg/dL (7-17); Calcium 9.4 mg/dL (8.4-10.2); Carbon Dioxide 27 mmol/L (22-30); Chloride 99 mmol/L (98-107); Creatine Kinase 23 U/L (30-135); Estimated CRCL calculation 24 ml/min; Estimated Glomerular Filt Rate 32; Glucose 123 mg/dL (65-110); Potassium 5.5 mmol/L (3.4-5.0); Sodium 135 mmol/L (137-145); Total Protein 7.2 g/dL (6.3-8.2)
[2024-12-01 15:29] LABS: Troponin I 0.024 ng/mL (0.000-0.034)
[2024-12-01 15:59] LABS: Add Urine Microscopic? NO; Appearance Urine Clear (Clear); Glucose Urine UA Negative (Negative); Leukocyte Esterase Ur Negative LEU/UL (Negative); Nitrate Urine Negative (Negative); Specific Grav Ur 1.018 (1.001-1.035)
--- OUTSIDE RECORDS SUMMARY | 2024-12-01 17:40 | XMS_ITS | Continuity of Care Document ---
Author Organization [facility] Address [address] [place] [address] [address] [place] [address] Phone Care Team Providers Care Want Ad Clerk Name Role Phone Michelle Ojeda Unavailable Unavailable Advance Directives Directive Yes / No Effective Date File Name No Information Encounters Encounter Description Practice Location Reason(s) For Visit Diagnoses Date Provider Providers Copied on Encounter [facility], [address], [place], [place], [id number], [place] tel:[phone] [facility] No Information [address]. [address] , [address], [place], [address], [place]. tel:[phone] Family History Family Member Type Diagnosis Age At Onset No Information Payers Payer name Insurance type Covered democrat ID Authoriza tion(s) [employer] SOI CI [id number] Social History Type Description Quantity Date Captured [...]
--- OUTSIDE RECORDS SUMMARY | 2024-12-01 17:40 | XMS_ITS | Clinical Summary ---
Author Organization [facility] Address [address] [place] [address] Phone Care Team Providers Care Admeasurer Name Role Phone Unavailable Primary Care Provider [...] 50 mg Oral tabletIndications:C oronary atherosclerosis of alutiiq coronary artery,Hyperlipidem ia,Hypertension Take 1 Tab by [...] migh t be different from the original. Call Center Director - Dr Christian Ascencio Problem Noted Date Diagnosed Date Coronary atherosclerosis of alutiiq coronary martin ry 11/25/2010 Overview (08/16/2012): 1989 [...] LDL 140 triglyceride 121, normal AST/ALT 07/13 [id number] HDL 43 LDL 100 triglyceride 115, normal AST/ALT 04/05 cholesterol 213 HDL 38 LDL 150 triglyceride 125 COPD (chronic obstructive pulmonary disease) Overview (04/05/2011): 03/[address]: severe rosa emphysema, RLL honeycombing, celiac/SMA /renal artery atherosclerosis, no PE/aortic disease, left hydronephrosis,... Encounters Date Type Department Care Team Description 11/04/2024 Telephone [facility] Oncology and Hematology - [address] [place] [address] Guided Biopsy (Spoke with patient to provide CT guided biopsy info) 10/28/2024 Orders Only [facility] Oncology and Hematology - [address] [place] [id number] Quique Palomo MD 10/24/2024 12:00 PM CDT Office Visit [facility] Oncology and Hematology - [address] [place] [address] Quique Palomo MD Mass of right lung (Primary Dx); Chronic obstructive pulmonary disease, unspecified COPD type (CMS/HCC) 10/22/2024 External Device Data STL ABSTRACTION Provider, Abstract 10/22/2024 Orders Only [facility] Oncology and Hematology - [address] [place] [address] Quique Palomo MD 10/21/2024 External Device Data STL ABSTRACTION Provider, Abstract 10/14/2024 Orders Only [facility] Oncology and Hematology - [address] [place] [address] Quique Palomo MD from Last [...] on file Legal Sex Female 5:58 AM [employer] T[employer] Gender Identity Not on file Sexual Orientation [...] Months Insurance MEDICARE PART A AND B [facility] SUPP MEDICARE PART A AND B [facility] SUPP
--- OUTSIDE RECORDS SUMMARY | 2024-12-01 17:41 | XMS_ITS | Encounter Summary ---
Author Organization [facility] Address [address] [place] [address] Care Team Providers Care Milk Processing Worker Name Role Phone Rosales Wolfe MD Primary Care Provider [phone] Jana Aguiar PA-C Primary Care Provider [phone] Encounter Details Date Type Department Care Team (Late st Contact Info) Description 01/02/2019 Hospital Follow-up Call [facility] Telemetry Unit [address] [place] [address] Mally De La Torre Social History Tobacco [...] documented as of this encounter Care Teams Milk Processing Worker Relationship Specialty Start Date End Date Rosales Wolfe MD [address] [place] [id number] PCP - General INTERNAL MEDICINE 11/12/18 08/25/22 Jana Aguiar PA-C [address] [place] [id number] PCP - General PHYSICIAN DISPOSAL MAN 08/26/22 documented as of this encounter
--- OUTSIDE RECORDS SUMMARY | 2024-12-01 17:41 | XMS_ITS | Clinical Summary ---
Author Organization [facility] Address [address] [place] [address] Care Team Providers Care Web Operations Specialist Name Role Phone Babita Reyes PA-C Primary Care Provider [phone] Allergies Active Allergy Reactions Criticality Noted Date [...] Problem Noted Date Diagnosed Date COPD exacerbation ([facility]) 09/09/2024 Shock ([facility]) 09/09/2024 Hypertensive emergency 09/04/2024 Status post biopsy of skin 01/03/2019 Acute CVA (cerebrovascular accident) ([facility]) 12/31/2018 Skin lesion 11/13/2018 Anxiety 12/17/2014 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 (12/31/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 GERD (gastroesophageal reflux disease) 5 Nicotine dependence 08/06/2014 Peripheral vascular disease 10/21/2012 Hypercholesterolemia 05/15/2012 Resolved Problems Problem Noted Date Diagnosed Date Resolved Date Encounter for preventive health examination 12/07/2011 02/13/2020 Encounters Date Type Department Care Team Description 11/20/2024 Telephone [facility] [address] [place] [address] Yina Bhatia, damage appraiser (Swing bed referral to [facility] from Josh ) 09/25/2024 12:21 PM CDT - 09/25/2024 11:59 PM CDT Hospital Encounter [facility] [address] [place] [address] Babita Reyes PA-C Discharge Disposition: Home or Self Care (Routine Discharge) 09/25/2024 10:30 AM CDT Home Care Visit [facility] Care [address] [place] [address] Roxy Ndiaye, PT PT OASIS DISCHARGE 09/25/2024 Travel 09/22/2024 12:00 PM CDT Home Care Visit [facility] Care [address] [address] Shreya Lerma, SOFTWARE QUALITY ASSURANCE SPECIALIST SOFTWARE QUALITY ASSURANCE SPECIALIST HOME VISIT 09/22/2024 11:00 AM CDT Home Care Visit [facility] Care [address] [address] Olga Mcgee, LOBITO SN DISCIPLINE DISCHARGE 09/22/2024 Home Care Visit [address] [address] Olga Mcgee, RN [facility] INTERDISCIPLINARY [place] 09/18/2024 1:15 PM CDT Home Care Visit [facility] Home Care [address] [address] Shreya Lerma, SOFTWARE QUALITY ASSURANCE SPECIALIST SOFTWARE QUALITY ASSURANCE SPECIALIST HOME VISIT 09/15/2024 10:30 AM CDT Home Care Visit [facility] Care [address] [address] Soniya Singh LPN SN HOME VISIT 09/15/2024 9:00 AM CDT Home Care Visit [facility] Care [address] [address] Shreya Lerma, SOFTWARE QUALITY ASSURANCE SPECIALIST SOFTWARE QUALITY ASSURANCE SPECIALIST HOME VISIT 09/12/2024 9:30 AM CDT Home Care Visit [facility] Care [address] [place] [address] Maricarmen Shaver, PT PT INITIAL EVALUATION 09/11/2024 10:00 AM CDT Home Care Visit [facility] Care [address] [place], [place] [id number] Olga Mcgee, RN SN OASIS RESUMPTION OF CARE 09/11/2024 Hospital Follow-up Call [facility] Care Management [address] [place] [address] May Banks LPN Follow Up Call ([facility] 09/08-09/10/24) 09/11/2024 Plan of Care Documentation [address] [place], [place] [id number] 09/11/2024 Telephone [facility] Med/Surg [address] [place] [address] Freida Munson, RN Follow Up Call (Patient states :she feels better and will call to get appt w/ PCP) 09/10/2024 Home Care Visit [facility] Care [address] [place], [place] [phone] Roxy Ndiaye, PT CASE COMMUNICATION 09/10/2024 Home Care Visit [facility] Care [address] [place] [address] Ryanne Adames RN SN OASIS TRANSFER W/OUT DC 09/10/2024 Telephone [facility] Care Management [address] [place] [address] Yina Bhatia, damage appraiser (Swing bed referral to [facility] from [facility]/) 09/09/2024 Hospital Follow-up Call [facility] Care Management [address] [place] [address] May Banks LPN Follow Up Call ([facility] 09/04-09/07/24) 09/09/2024 Travel 09/08/2024 7:47 PM CDT - 09/10/2024 3:30 PM CDT Hospital Encounter [facility] Med/Surg [address] [place] [address] Osvaldo Zuñiga MD Ojulari, Adebunmi, MD Harris, Michael, MD McGowen, Payton K, MD Dizziness Discharge Disposition: Left Against Medical Advice 09/08/2024 10:45 AM CDT Home Care Visit [facility] Home Care [address] [place] [address] Brit Suarez, LOBITO SN OASIS START OF CARE 09/08/2024 Plan of Care Documentation [facility] Care [address] [address] 09/04/2024 9:44 AM CDT - 09/07/2024 3:25 PM CDT Hospital Encounter [facility] Med/Surg [address] [place] [address] Thalia Vieira MD Harris, Michael, MD Daniels, Cindy Villeda, MIND READER Dizziness Discharge Disposition: Home with Home Health Care 09/04/2024 Travel from Last 3 Months Immunizations Immunization Administration Dates Next Due Fluad influenza vaccine, Stephen drivalent (aIIV4), Inactivated, adjuvanted, preservative free, 0.5 mL,IM use 03/16/2018 Fluzone High Dose - >Age 65 (Prefilled Syringe) 03/24/2019,02/17/2017 Influenza (Generic) 04/06/2014,03/19/2012 Influenza Adult (Generic) 03/23/2015,01/31/2013 Pneumococcal (Pneumovax 23) 02/17/2017 Pneumococcal (Prevnar 13) 05/23/2015 Zoster (Zostavax) [address]253 Unt/0.65Ml 01/31/2013 Family History Medical History Relation [...] from your doctor or pharmacy? Sometimes 09/09/2024 [employer] Answer Date Recorded In the past 12 months has e [employer], oil, or water [employer] threatened to shut off services in your [...] often do you attend chur ch or worship services? Never 09/09/2024 Do you belong to [...] Recorded Patient Health Questionnaire-2 Score 0 12/15/2022 [facility] - Occupational [...] any time in the past 12 m [facility], were you homeless or living in a skilled nursing (including now)? No 09/09/2024 Comments No Sex [...] COVID-19 Vaccine ( season) 2024 PHQ-2 (Physician [place]) 06/04/2024 12/15/2022 Mammogram Screening 09/25/2026 09/25/2024, 06/26/2023, [...] discharge from hospital Lifestyle [address] vice president of communications Procedure Name Priority Date/Time Associated Diagnosis Comments [...] 3:42 PM Narrative 09/25/2024 3:51 PM CDT [facility] [address] [place] [address] EXAMINATION: Digital bilateral screening mammogram with 3-D [...] - 99 MG/DL 09/10/2024 6:59 AM CDT [facility] BUN 16 7 - 18 MG/DL 09/10/2024 6:59 AM CDT [facility] CREATININE S/P/B 0.89 0.55 - 1.02 MG/DL 09/10/2024 6:59 AM CDT [facility] SODIUM S/P/B 138 136 - 145 MMOL/L 09/10/2024 6:59 AM CDT [facility] POTASSIUM S/P/B 4.0 3.5 - 5.1 MMOL/L 09/10/2024 6:59 AM CDT [facility] CHLORIDE S/P/B 103 100 - 108 MMOL/L 09/10/2024 6:59 AM CDT [facility] CO2 27.8 21 - 32 MMOL/L 09/10/2024 6:59 AM CDT [facility] CALCIUM S/P/B 9.6 8.5 - 10.1 MG/DL 09/10/2024 6:59 AM CDT [facility] ANION GAP 7.2 5 - 15 MMOL/L 09/10/2024 6:59 AM CDT [facility] BUN CREATININE RATIO 18.0 6 - 26 09/10/2024 6:59 AM T [facility] GFR ESTIMATE 68(L) >90 ML/MIN/1.7 3 M2 09/10/2024 6:59 AM CDT [facility] Comment: NOTE: eGFR is not calculated for patients <18 years of age. This is an estimated GFR calculation using the new CKD EPI creatinine equation without race and so does not require a correction factor for race. This estimated GFR should not be used for calculating drug doses. 09/10/2024 6:21 AM CDT us Mary Leger MD LABORATORY Final Result [facility] [address] [place] [address], * (ABNORMAL) CBC W/DIFF AUTOMATED (09/10/2024 6:21 AM CDT) Only the most recent of6 resultswithin the time period is included. WBC 11.54(H) 4.4 - 11.0 x10'3/uL 09/10/2024 6:49 AM CDT [facility] RBC 4.20(L) 4.50 - 5.10 x10'6/uL 09/10/2024 6:49 AM CDT [facility] HGB 12.9 12.3 - 15.3 G/DL 09/10/2024 6:49 AM CDT [facility] HCT 40.2 35.9 - 44.6 % 09/10/2024 6:49 AM CDT [facility] MCV 95.7 80.0 - 96.0 FL 09/10/2024 6:49 AM CDT [facility] MCH 30.7 25.3 - 30.9 PG 09/10/2024 6:49 AM CDT [facility] MCHC 32.1 31.0 - 34.1 G/DL 09/10/2024 6:49 AM CDT [facility] RDW 14.3 12.4 - 15.1 % 09/10/2024 6:49 AM T [facility] PLT 236 151 - 353 x10'3/uL 09/10/2024 6:49 AM T [facility] MPV 9.2(L) 9.6 - 12.0 FL 09/10/2024 6:49 AM T [facility] RBC MORPHOLOGY NORMAL 09/10/2024 6:49 AM T [facility] PLT MORPH. NORMAL 09/10/2024 6:49 AM T [facility] WBC MORPHOLOGY NORMAL 09/10/2024 6:49 AM T [facility] LYMPHOCYTES % 15.7(L) 15.8 - 45.0 % 09/10/2024 6:49 AM T [facility] NEUTROPHILS % 80.4(H) 42.1 - 71.9 % 09/10/2024 6:49 AM CDT [facility] MONOCYTES % 3.2(L) 5.7 - 12.5 % 09/10/2024 6:49 AM CDT [facility] EOSINOPHILS 0.0 0.0 - 5.6 % 09/10/2024 6:49 AM CDT [facility] BASOPHILS 0.2 0.0 - 1.3 % 09/10/2024 6:49 AM CDT [facility] ABS. NEUTROPHILS 9.28(H) 1.40 - 6.00 x10'3/uL 09/10/2024 6:49 AM CDT [facility] IMMATURE GRANS % 0.5 0.0 - 0.5 % 09/10/2024 6:49 AM CDT [facility] ABS. LYMPHOCYTES 1.81 0.80 - 4.70 x10'3/uL 09/10/2024 6:49 AM CDT [facility] 09/10/2024 6:21 AM CDT us Mary Leger MD LABORATORY Final Result [facility] [address] [place] [id number], * XR CHEST PORTABLE (09/08/2024 10:50 PM [...] 11:44 PM Narrative 09/08/2024 11:44 PM CDT [address] [place] [address] Examination: Chest x-ray 1 view Exam Date/Time: [...] Procedure Note Selwyn Rivera MD - 09/08/[address] [place] [address] Examination: Chest x-ray 1 view Exam Date/Time: [...] is included. 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: : 1950 Requested By: OSVALDO ZUÑIGA Order Number: [id number] Reading MD: Abbe Farmer Measurements Intervals [place] Rate: 57 P: 69 IN: 149 QRS: 44 QRSD: 102 T: 72 QT: 467 QTc: 456 Interpretive Statements SINUS BRADYCARDIA LEFT VENTRICULAR HYPERTROPHY AND ST-T CHANGE [VOLTAGE CRITERIA PLUS ST/T ABNORMALITY] Compared to ECG 09/04/2024 10:42:38 Left ventricular hypertrophy now present Sinus rhythm no longer present Prolonged QT interval no longer present ST (T wave) deviation still present Procedure Note Abbe Farmer MD - 09/08/2024 [facility] Test Date: 2024-09-08 Pat Name: FARHAD BOCANEGRA Department: 85 Room: EXAM 505 Gender: Female Java Development Team Lead: : 1950 Requested By: OSVALDO ZUÑIGA Order Number: [id number] Reading : Abbe Farmer Measurements Intervals [place] Rate: 57 P: 69 IN: 149 QRS: 44 QRSD: 102 T: 72 QT: 467 QTc: 456 Interpretive Statements SINUS BRADYCARDIA LEFT VENTRICULAR HYPERTROPHY AND ST-T CHANGE [VOLTAGE CRITERIA PLUSST/T ABNORMALITY] Compared to ECG 09/04/2024 10:42:38 Left ventricular hypertrophy now present Sinus rhythm no longer present Prolonged QT interval no longer present ST (T wave) deviation still present us Osvaldo Zuñiga MD ECG ORDERABLES Final Resu lt [facility] ([facility] RAD * (ABNORMAL) PRO-BRAIN NATRIURETIC PEPTIDE (09/08/2024 8:00 PM CDT) PRO-B TYPE NATRIURETIC PEPTIDE 1,124(H) <125 PG/ML 09/09/2024 12:48 AM CDT [facility] Comment: CUT POINTS ESTABLISHED BY INTERNATIONAL [...] Osvaldo Zuñiga MD LABORATORY Final Resu lt [facility] [address] [place] [address], * (ABNORMAL) COMPREHENSIVE METABOLIC PANEL (09/08/2024 8:00 PM CDT) Only the most recent of3 resultswithin the time period is included. GLUCOSE 104(H) 70 - 99 MG/DL 09/08/2024 8:47 PM CDT [facility] BUN 20(H) 7 - 18 MG/DL 09/08/2024 8:47 PM CDT [facility] CREATININE S/P/B 1.28(H) 0.55 - 1.02 MG/DL 09/08/2024 8:47 PM CDT [facility] SODIUM S/P/B 135(L) 136 - 145 MMOL/L 09/08/2024 8:47 PM CDT [facility] POTASSIUM S/P/B 4.1 3.5 - 5.1 MMOL/L 09/08/2024 8:47 PM T [facility] CHLORIDE S/P/B 102 100 - 108 MMOL/L 09/08/2024 8:47 PM [facility] CO2 24.1 21 - 32 MMOL/L 09/08/2024 8:47 PM T [facility] CALCIUM S/P/B 9.3 8.5 - 10.1 MG/DL 09/08/2024 8:47 PM T [facility] BILIRUBIN TOTAL S/P/B 0.5 0.2 - 1.2 MG/DL 09/08/2024 8:47 PM [facility] TOTAL PROTEIN S/P/B 7.6 6.4 - 8.2 G/DL 09/08/2024 8:47 PM [facility] ALBUMIN S/P/B 3.2(L) 3.4 - 5.0 G/DL 09/08/2024 8:47 PM [facility] AST 23 15 - 37 U/L 09/08/2024 8:47 PM [facility] ALT 12(L) 14 - 55 U/L 09/08/2024 8:47 PM [facility] ALKALINE PHOSPHATASE S/P/B 112 50 - 136 U/L 09/08/2024 8:47 PM [facility] ANION GAP 8.9 5 - 15 MMOL/L 09/08/2024 8:47 PM [facility] BUN CREATININE RATIO 15.6 6 - 26 09/08/2024 8:47 PM [facility] A/G RATIO 0.7(L) 1.0 - 2.0 RATIO 09/08/2024 8:47 PM CDT [facility] GFR ESTIMATE 44(L) >90 ML/MIN/1.7 3 M2 09/08/2024 8:47 PM CDT [facility] Comment: NOTE: eGFR is not [...] LABORATORY Final Resu lt Performing Organization Address [facility] Co de Phone Number [facility] [address] [place] [address], [place] [phone] * TROPONIN, QUANT (09/08/2024 8:00 PM CDT) Only the most recent of2 resultswithin the time period is included. TROPONIN I HIGH SENSITIVITY 12 0 - 50 ng/L 09/09/2024 12:44 AM CDT [facility] Comment: HIGH DOSES OF BIOTIN, TROPONIN-SPECIFIC AUTOANTIBODIES, AND ANTIBODY THERAPY CONTAINING HAMA MAY INTERFERE WITH THIS TEST RESULT. CORRELATION TO CLINICAL HISTORY AND PRESENTATION RECOMMENDED. 09/08/2024 8:00 PM CDT us Osvaldo Zuñiga MD LABORATORY Final Resu lt Performing Organization Address City/[facility] Hospital/ZIP Co de Phone Number [facility] [address] [place] [address], [place] [phone] * MAGNESIUM (09/08/2024 8:00 PM CDT) Only the most recent of4 resultswithin the time period is included. MAGNESIUM 2.1 1.8 - 2.4 MG/DL 09/09/2024 12:48 AM CDT [facility] 09/08/2024 8:00 PM CDT us Osvaldo Zuñiga MD LABORATORY Final Resu lt [facility] [address] [place] [address], [place] [phone] * URINALYSIS (09/05/2024 4:27 PM CDT) COLOR (U) YELLOW 09/05/2024 5:03 PM CDT [facility] TRANSPARENCY CLEAR 09/05/2024 5:03 PM CDT [facility] SPECIFIC GRAVITY (U) 1.025 1.000 - 1.030 09/05/2024 5:03 PM CDT [facility] U PH 6.0 5.0 - 9.0 09/05/2024 5:03 PM CDT [facility] LEUKOCYTES (U) NEGATIVE NEGATIVE 09/05/2024 5:03 PM CDT [facility] NITRITES NEGATIVE NEGATIVE 09/05/2024 5:03 PM CDT [facility] PROTEIN RANDOM (U) NEGATIVE NEGATIVE 09/05/2024 5:03 PM CDT [facility] GLUCOSE (U) NEGATIVE NEGATIVE 09/05/2024 5:03 PM CDT [facility] KETONES MG/DL (U) NEGATIVE NEGATIVE 09/05/2024 5:03 PM CDT [facility] BILIRUBIN (U) NEGATIVE NEGATIVE 09/05/2024 5:03 PM CDT [facility] BLOOD (U) NEGATIVE NEGATIVE 09/05/2024 5:03 PM CDT [facility] URINE SPECIMEN OBTAINED BY CLEAN CATCH PROCEDURE / Unknown 09/05/2024 4:27 PM CDT us Cindy Kramer MIND READER URINE ORDERABLES Final Result [facility] [address] [place] [address], [place] [phone] * CULTURE, BACTERIA, BLOOD (09/05/2024 10:21 AM CDT) Pathologist [facility] SPEC DESCRIPTION BLOOD-PEDIA TRIC VOLUME 09/05/2024 8:26 AM CDT [facility] SPECIAL REQUESTS NO SPECIAL REQUEST 09/05/2024 8:26 AM CDT [facility] CULTURE RESULT NO GROWTH 5 DAYS 09/10/2024 2:57 PM CDT [facility] BLOOD SPECIMEN OBTAINED FOR BLOOD CULTURE / Unknown 09/05/2024 10:21 AM CDT 09/05/2024 10:22 AM CDT Cindy Kramer NP MICROBIOLOGY - GENERAL ORDERA BLES Final Result [facility] [address] [place] [address], [place] [phone] [facility] [address] [place] [address], [place] [phone] * RESPIRATORY PCR PANEL 2 (09/05/2024 9:30 AM CDT) Pathologist [facility] ADENOVIRUS PCR (RESP) NOT DETECTED NOT DETECTED 09/05/2024 3:48 PM CDT [facility] CORONAVIRUS 229E PCR (RESP) NOT DETECTED NOT DETECTED 09/05/2024 3:48 PM CDT [facility] CORONAVIRUS HKU1 PCR (RESP) NOT DETECTED NOT DETECTED 09/05/2024 3:48 PM CDT [facility] CORONAVIRUS NL63 PCR (RESP) NOT DETECTED NOT DETECTED 09/05/2024 3:48 PM CDT [facility] CORONAVIRUS OC43 PCR (RESP) NOT DETECTED NOT DETECTED 09/05/2024 3:48 PM CDT [facility] METAPNEUMOVIRUS PCR (RESP) NOT DETECTED NOT DETECTED 09/05/2024 3:48 PM CDT [facility] RHINOVIRUS/ENTEROV IRUS PCR (RESP) NOT DETECTED NOT DETECTED 09/05/2024 3:48 PM CDT [facility] INFLUENZA A PCR (RESP) NOT DETECTED NOT DETECTED 09/05/2024 3:48 PM CDT [facility] INFLUENZA B PCR (RESP) NOT DETECTED NOT DETECTED 09/05/2024 3:48 PM CDT [facility] PARAINFLUENZA 1 PCR (RESP) NOT DETECTED NOT DETECTED 09/05/2024 3:48 PM CDT [facility] PARAINFLUENZA 2 PCR (RESP) NOT DETECTED NOT DETECTED 09/05/2024 3:48 PM CDT [facility] PARAINFLUENZA 3 PCR (RESP) NOT DETECTED NOT DETECTED 09/05/2024 3:48 PM CDT [facility] PARAINFLUENZA 4 PCR (RESP) NOT DETECTED NOT DETECTED 09/05/2024 3:48 PM CDT [facility] RSV PCR (RESP) NOT DETECTED NOT DETECTED 09/05/2024 3:48 PM CDT [facility] B PARAPERTUSIS PCR (RESP) NOT DETECTED NOT DETECTED 09/05/2024 3:48 PM CDT [facility] BORDETELLA PERTUSSIS PCR (RESP) NOT DETECTED NOT DETECTED 09/05/2024 3:48 PM CDT [facility] CHLAMYDOPHILA PNEUMONIAE PCR (RESP) NOT DETECTED NOT DETECTED 09/05/2024 3:48 PM CDT [facility] MYCOPLASMA PNEUMONIAE PCR (RESP) NOT DETECTED NOT DETECTED 09/05/2024 3:48 PM CDT [facility] CORONAVIRUS SARS COV 2 PCR (RESP) NOT DETECTED NOT DETECTED 09/05/2024 3:48 PM CDT [facility] NASOPHARYNGEAL SWAB / Unknown 09/05/2024 9:30 AM CDT Cindy Kramer NP MICROBIOLOGY - GENERAL ORDERA BLES Final Result [facility] [address] [place] [address], * PROCALCITONIN (PCT) (09/05/2024 6:09 AM CDT) PROCALCITONIN <0.05 0.00 - 0.25 NG/ML 09/05/2024 10:06 AM CDT [facility] Comment: PROCALCITONIN INTERPRETATION GUIDELINES LOWER RESPIRATORY [...] CDT Cindy Kramer NP LABORATORY Final Result [facility] [address] [place] [id number], * CT HEAD WO CON (09/04/2024 10:35 [...] 10:44 AM Narrative 09/04/2024 10:46 AM CDT [facility] [address] [facility] [place] [address] Examination: CT HEAD WO CON, 09/04/2024 10:34 [...] Procedure Note Reginaldo Gregg MD - 09/04/2024 [facility] [address] [place] [address] Examination: CT HEAD WO CON, 09/04/2024 10:34 [...] 10:37 AM Narrative 09/04/2024 10:39 AM CDT [address] [place] [address] Procedure(s): XR SHOULDER LT 3V Date of service: 09/04/2024 10:35 AM Provided clinical information: 73 years, Female, fall fall on left side yesterday. Procedure and materials: 3 views left shoulder. Comparison studies: None. Findings: No calcific tendinitis. No fracture, dislocation or acute bony abnormality left shoulder. No definite displaced fracture left ribs. No visualized left pneumothorax. Procedure Note Jordan Hoffman MD - 09/04/[address] [place] [address] Procedure(s): XR SHOULDER LT 3V Date of [...] 10:43 AM Narrative 09/04/2024 10:44 AM CDT [address] [place] [address] Procedure(s): XR FEMUR LT 2V Date of service: 09/04/2024 10:35 AM Provided clinical information: 73 years, Female, fall Procedure and materials: AP and lateral view of the left femur. Comparison studies: None. Findings: No fracture, dislocation or acute bony abnormality about the left femur. Calcific tendinitis about the greater trochanter on the left. Procedure Note Jordan Hoffman MD - 09/04/[address] [place] [address] Procedure(s): XR FEMUR LT 2V Date of [...] greatertrochanter. Ordered By: THALIA VIEIRA Interpreted By: Jordan Hoffman MD, 09/04/2024 10:43 AM Thalia Vieira [...] 10:40 AM Narrative 09/04/2024 10:43 AM CDT [address] [place] [address] Procedure(s): XR PELVIS+LT HIP 2V Date of [...] Procedure Note Jordan Hoffman MD - 09/04/2024 [place] [id number] [facility] [place] [address] Procedure(s): XR PELVIS+LT HIP 2V Date of [...] - 36.8 SEC 09/04/2024 10:24 AM CDT [facility] 09/04/2024 10:0 5 AM CDT us Thalia Vieira MD LABORATORY Final Result Performing Organization Address [facility]/ZIP Co de Phone Number [facility] [address] [place] [address], [place] [phone] * (ABNORMAL) PROTIME/INR, VENOUS (09/04/2024 10:05 AM CDT) PROTIME 13.3(H) 9.1 - 12.4 SEC 09/04/2024 10:24 AM CDT [facility] INR 1.2 09/04/2024 10:24 AM CDT [facility] Comment: Recommend INR ranges for Oral Anticoagulant Therapy: Mechanical Cardiac Values 2.5-3.5 All others indication 2.0-3.0 09/04/2024 10:0 5 AM CDT us Thalia Vieira MD LABORATORY Final Result Performing Organization Address [facility]/ZIP Co de Phone Number [facility] [address] [place] [address], [place] [phone] * CK (CPK) (09/04/2024 10:05 AM CDT) CPK 79 26 - 192 U/L 09/04/2024 10:27 AM CDT [facility] 09/04/2024 10:0 5 AM CDT Thalia Vieira MD LABORATORY Final Result [facility] [address] [place] [address], * BONE DENSITY/DEXA (09/06/2021 9:51 AM CDT) [...] 166 <200 MG/DL 01/01/2019 7:42 AM CDT [facility] TRIGLYCERIDES 129 <150 MG/DL 01/01/2019 7:42 AM CDT [facility] HDL 44 >40.0 MG/DL 01/01/2019 7:42 AM T [facility] LDL (CALCULATED) 96 <100 MG/DL 01/02/20 19 7:42 AM T [facility] NON HDL CHOLESTEROL 122 <130 MG/DL 01/01 7:42 AM T [facility] CHOL/HDL RATIO 3.8 0.0 - 4.5 01/01/2019 7:42 AM T [facility] VLDL CALCULATION 26 5 - 55 MG/DL 01/01/2019 7:42 AM T [facility] LIPID INTERPRETATION 01/01/2019 7:42 AM T [facility] Comment: [facility] REPORT RECOMMENDATIONS: ADULT CHILD LOW RISK: CHOLESTEROL <200 <170 TRIGLYCERIDE <150 --- HDL >=60 --- LDL <100 <110 BORDERLINE: CHOLESTEROL 200-239 170-199 TRIGLYCERIDE 150-199 --- HDL 40-59 --- LDL 100-159 110-129 HIGH RISK: CHOLESTEROL >=240 >=200 TRIGLYCERIDE >=200 --- HDL <40 --- LDL >=160 >=130 01/01/2019 6:15 AM CDT us Dayna Gold MD LABORATORY Final Result [facility] [address] [place] [address], from Last 3 Months or Most Recently Relevant to Health Maintenance Insurance MEDICARE MEDICARE [facility] Advance Directives * Full Code (Latest [...] 11:22 PM 01/01/2019 8:48 PM Care Teams Web Operations Specialist Relationship Specialty Start Date End Date Babita Reyes PA-C [address] [place] [address] [address] [place] [address] PCP - General PHYSICIAN COMMODITY MANAGEMENT SPECIALIST 08/26/22
[2024-12-01 18:21] LABS: Influenza A QL RT-PCR Negative (Negative); Influenza B QL RT-PCR Negative (Negative); RSV RNA, RT-PCR Negative (Negative); SARS-CoV-2 RNA PCR Negative (Negative)
[2024-12-01] MEDS: IPRATROPIUM 0.5 MG/ALBUTEROL SULFATE 2.5 MG AMPUL.NEB 3 ML INHALATION (18:25)
[2024-12-01 18:26] VITALS: PULSE 62; RESP 14
[2024-12-01] MEDS: SODIUM CHLORIDE 0.9% IV 1,000 ML 999 ML IV CONT (18:31)
[2024-12-01 18:34] VITALS: PULSE 53; RESP 14
--- NOTE | 2024-12-01 18:35 | PC.NURSE ---
Phlebotomy called to get second set of blood cultures per EDP, MARISSA Murdokc
--- NOTE | 2024-12-01 19:45 | PC.NURSE ---
Otis Villarreal RN called phlebotomy to see ETA for second set of cultures.
--- NOTE | 2024-12-01 19:54 | PC.NURSE ---
Called and spoke with Janna at [facility] to let her know patient was being admitted and staying in hospital.
--- NOTE | 2024-12-01 20:00 | P.HP_ITS ---
H&P: HPI History of Present Illness Date/Time: 12/01/24 20:00 Chief Complaint: Weakness. Narrative: This is a 73-year-old female smoker with chronic respiratory failure with hypoxia on home oxygen for which she has historically been noncompliant, chronic obstructive pulmonary disease, right lower lobe lung mass status post radiation in October 2022, nonobstructing coronary artery disease, peripheral vascular disease with history of angioplasty and stents, carotid artery disease status post bilateral carotid endarterectomy, hyperlipidemia, gastroesophageal reflux disease, kidney stones, and osteoporosis who presented to the emergency department via EMS from [facility] for evaluation of weakness. She is known to myself and the hospitalist service from and admission earlier this month with hypoxia and presumed postobstructive pneumonia related to a right lower lobe lung mass. She completed SBRT in October 2022 for a right lower lobe mass and is increasing in size. It was recommended that she be referred to a tertiary care facility for endobronchial ultrasound biopsy of a hilar lymph node which she declined although she is following up with Dr. Palomo. She was transferred to [facility] upon discharge. She has been participating in rehab and doing well however her blood pressures have been soft at times and her lisinopril was decreased. Today a rapid response was called due to weakness noted on her left side. The patient tells me that she has chronic, mild left-sided weakness from a prior stroke and that does seem to get worse when she is not feeling well. She tells me that she has been fatigued and has been feeling a bit lightheaded and dizzy. She continues to have a cough which is chronic for her and unchanged. Her appetite is fair ?but I have been trying to eat.? She denies vertigo, syncope, near syncope, visual changes, facial droop, dysphagia, dysarthria, paresthesias, and change in weakness from baseline. No vomiting, diarrhea, dysuria In the ED: Vital signs on arrival include temperature 97.3?, blood pressure 101/49, pulse 56, respiratory rate 14, SpO2 98% on 2 L nasal cannula. Labs were significant for WBC count of 16.3, sodium 135, potassium 5.5, BUN 36, creatinine 1.58, lactic acid 1.7. Trace ketones noted in the urine. She tested negative for influenza, RSV, and COVID. Chest x-ray showed stable right lower lobe masses and interstitial opacities in the peripheral and lower right lung. Brain CT was negative for acute findings but did note stable, chronic encephalomalacia in the right hemisphere and old lacunar focal lacunar infarct in the right basal ganglia. She was given a nebulizer treatment, 1 L normal saline, methylprednisolone, ceftriaxone, and doxycycline and she is being admitted in setting with acute kidney injury and hyperkalemia. Review of Systems Review of Systems: 12 systems were reviewed and are negativ e except for as per HPI. FOR[facility]LY [facility] Past Medical History Medical History (Updated 12/01/24 @ 21:41 by Jacqui Shen PA-C) Nonobstructive atherosclerosis of coronary artery Cerebrovascular accident Tobacco abuse Carotid artery disease Peripheral vascular disease Chronic obstructive pulmonary disease Transient ischemic attack Gastroesophageal reflux disease Hypertension Osteoporosis History of radiation therapy right lower lobe 2022 Malignant neoplasm of lower lobe, right bronchus or lung Depression Dyslipidemia Anxiety Surgical History Surgical History (Updated 12/01/24 @ 20:24 by Jacqui Shen PA-C) History of bilateral carotid endarterectomy Status post angioplasty with stent iliac, subclavian, renal arteries History of cholecystectomy History of total hysterectomy with bilateral salpingo-oophorectomy (BSO) Family History Family History Sibling Cancer of kidney Sibling Hypertension Father Hypertension Social History Social History Social History: Surrogate medical decision maker: Yaakov Bocanegra, izzy. Code status: Full code. Smoking packs per day: 2 Smoking cigarettes per day: 40.0 Years smoked: 40 Smoking pack-years: 80.00 Smoking status: Never smoker Tobacco type: cigarettes Second hand tobacco smoke exposure: No Additional smoking assessment comments: weaning off cigarettes Alcohol intake: never Drinks per week: 5 Substance use: never Substance use type: does not use Do You Feel Safe in your Home?: Yes Lack of Transportation: No Lack of Food: Never True Current Housing: I Have Housing Concerned About Future Housing: No Difficulty Paying Gas/Electric Bills: No Difficulty Paying for Meds: No Currently Unemployed: No Education: High School Diploma/GED Difficulty w/ Childcare or Family Care: No Living arrangements: alone Occupation/Education: retired Spiritual care concerns: No Meds Home Medications and Allergies Home Medications ?Medication ?Instructions ?Recorded ?Confirmed ?Type melatonin 5 mg capsule 5 mg PO QHS 08/29/22 12/02/24 History atorvastatin 40 mg tablet 40 mg PO DAILY 90 days #90 tabs 08/13/24 12/02/24 Rx clopidogrel 75 mg tablet (Plavix) 75 mg PO DAILY #90 tabs 08/13/24 12/02/24 Rx lisinopril 40 mg tablet 40 mg PO QAM 90 days #90 tabs 08/13/24 12/02/24 Rx escitalopram oxalate 10 mg tablet 10 mg PO HS #90 tabs 09/29/24 12/02/24 Rx pantoprazole 20 mg tablet,delayed 20 mg PO QAM PRN Indigestion #90 09/29/24 12/02/24 Rx release tabs carvedilol 12.5 mg tablet (Coreg) 12.5 mg PO Q12HR #60 tabs 11/21/24 12/02/24 Rx fluticasone fur. 100 mcg-umeclid 1 inh inhalation DAILY #60 ea 11/21/24 12/02/24 Rx 62.5 mcg-vilant 25 mcg inhalat.powder (Trelegy Ellipta) furosemide 40 mg tablet 40 mg PO QAM #14 tabs 11/21/24 12/02/24 Rx guaifenesin 600 mg tablet, 600 mg PO Q12H PRN congestion 11/21/24 12/02/24 History extended release 12 hr acetaminophen 500 mg capsule 500 mg PO Q4H PRN pain 12/02/24 12/02/24 History albuterol sulfate 1.25 mg/3 mL 2.5 mg inhalation Q6H 12/02/24 12/02/24 History solution for nebulization dronabinol 2.5 mg capsule 2.5 mg PO BID 12/02/24 12/02/24 History enoxaparin 40 mg/0.4 mL 40 mg subcut DAILY 12/02/24 12/02/24 History subcutaneous syringe ondansetron HCl 4 mg tablet 4 mg PO Q6H PRN nausea and vomiting 12/02/24 12/02/24 History potassium chloride 20 mEq 20 meq PO DAILY 12/02/24 12/02/24 History tablet,extended release(part/cryst) (Klor-Con M) Allergies Allergy/AdvReac Type Severity Reaction Status Date / Time Penicillins Allergy Severe BREATHING Verified 12/01/24 13:46 DIFFICULTY, SWELLING Vital Signs Vital Signs - 24 hr 12/01/24 14:17 12/01/24 14:47 12/01/24 18:26 Temperature 97.3 F L Pulse Rate 56 L 53 L 62 Respiratory Rate 14 18 14 Blood Pressure 101/49 L 116/45 L Pulse Oximetry 98 99 Oxygen Delivery Nasal Cannula Oxygen Flow Rate 2 12/01/24 18:34 Temperature Pulse Rate 53 L Respiratory Rate 14 Blood Pressure Pulse Oximetry Oxygen Delivery Oxygen Flow Rate Exam Narrative: General: Thin, chronically ill-appearing female supine in bed. Weight: 49.7 kg. BMI: 18.2. HEENT: PERRL, EOMI. Sclera anicteric. Tacky mucous membranes. Neck: Supple. No JVD. Respiratory: Currently on 2 L nasal cannula. Respirations are nonlabored and she is speaking in full sentences. Lung sounds are diminished throughout with scattered rales and occasional expiratory wheezing. Cardiovascular: Bradycardic. Gastrointestinal: Abdomen is soft, nontender, and nondistended with positive bowel sounds. Skin: Warm and dry. Scattered bruising throughout the upper extremities. Extremities: No cyanosis, clubbing, or edema. Radial pulses palpable. Posterior tibialis pulses diminished. Neurological: Alert. Cranial nerves 2-12 are grossly intact. No facial asymmetry. Speech is clear. Mild weakness of the left arm and hand compared to the right. She states this is at her baseline. No drift. Psychiatric: Cooperative with appropriate mood and affect. H&P: Results Labs Labs: Short CBC 12/01/24 Range/Units 14:54 WBC 16.3 H (4.5-10.0) K/mm3 Hgb 13.5 (12.0-15.0) g/dL Hct 43.8 (37.0-47.0) % Plt Count 301 (150-375) k/mm3 BMP 12/01/24 14:54 Sodium 135 L Potassium 5.5 H Chloride 99 Carbon Dioxide 27 BUN 36 H Creatinine 1.58 H Glucose 123 H Calcium 9.4 Cardiac Enzymes 12/01/24 Range/Units 14:54 Total Creatine Kinase 23 L (30-135) U/L Troponin I 0.024 (0.000-0.034) ng/mL Liver Function 06/30/25 Range/Units 14:54 Total Bilirubin 1.0 (0.2-1.3) mg/dL AST 34 (14-36) U/L ALT 29 (6-35) U/L Alkaline Phosphatase 107 (38-126) U/L Albumin 3.7 (3.5-5.1) g/dL Urine 12/01/24 Range/Units 15:52 Urine Color Yellow (Yellow) Urine Appearance Clear (Clear) Urine pH 5.0 (5.0-9.0) Ur Specific [place] 1.018 (1.001-1.035) Urine Protein Negative (Negative) mg/dL Urine Glucose (UA) Negative (Negative) mg/dL Imaging Chest X-Ray 12/01/24 15:19 IMPRESSION: Stable right lower lobe masses. Interstitial opacities in the peripheral and lower right lung may represent asymmetric edema or infection/pneumonitis. Assessment and Plan Assessment and plan (1) Acute kidney injury: Code(s): N17.9 - Acute kidney failure, unspecified Status: Acute (2) Hyperkalemia: Code(s): E87.5 - Hyperkalemia Status: Acute (3) Abnormal chest x-ray: Code(s): R93.89 - Abnormal findings on diagnostic imaging of other specified body structures Status: Acute (4) Right lower lobe lung mass: Code(s): R91.8 - Other nonspecific abnormal finding of lung field Status: Acute (5) Chronic obstructive pulmonary disease: Code(s): J44.9 - Chronic obstructive pulmonary disease, unspecified Status: Acute (6) Hypertension: Code(s): I10 - Essential (primary) hypertension Status: Acute Plan The patient presented to the emergency department for evaluation weakness, more so left-sided, and fatigue for couple of days as detailed in HPI. Labs, imaging, EKG, and all reports were personally reviewed. She was recently hospitalized with postobstructive pneumonia and is at rehab at [facility]. She is participating in therapy however with the last several days she has been more fatigued and weak than usual. It is my understanding that her blood pressures have been running low and that her antihypertensives have been decreased. Today she seemed to be more weak on the left when compared to the right and she was sent in for evaluation. The patient reports having chronic, mild left arm weakness which seems to be worse when she is not feeling well. She denies any new symptoms. Brain CT was without acute findings. I think her weakness is just exacerbated by the fact that she has and acute kidney injury with hyperkalemia. It is unclear why her kidney function is worse, but likely related to over diuresis and decreased oral intake. Bladder scan to rule out urinary retention. Hold furosemide and lisinopril for now. She will be hydrated with close monitoring of volume status, renal function, and electrolytes. If no improvement with fluids alone, further workup can be pursued. Her blood pressures have been running soft thus will hold all antihypertensives. No acute issues with regards to COPD. Chest x-ray shows stable right lower lobe masses and interstitial opacities in the peripheral in lower right lung. Doubt edema. She was recently treated for pneumonia and this is likely residual. Her WBC count has been chronically elevated and she is afebrile thus will hold on antibiotics for now (she received ceftriaxone and doxycycline in the ED) pending procalcitonin. No evidence of acute COPD exacerbation. Her home medications will be reviewed and resumed as appropriate. Findings and treatment plan were discussed with the patient. Questions were solicited and answered to satisfaction. The patient's medical management will be taken over by the hospitalist team in a.m. Quality VTE Prophylaxis VTE prophylaxis: pharmacologic ordered The patient has been admitted under observation status. Hospitalist MIPS Advance Care Plan I have confirmed that the patient's Advanced Care Plan is present, code status is documented, or surrogate decision maker is listed in patient medical record.: Yes Medication Reconciliation I have utilized all available resources to obtain, update and review the patients current medications (includes all prescriptions, OTC, herbals, cannabi s, and nutritional supplements).: Yes
--- NOTE | 2024-12-01 20:23 | PC.NURSE ---
Cherelle, ore crusher called phlebotomy again to see ETA and let her know pt also now needs a potassium drawn.
[2024-12-01] MEDS: DOXYCYCLINE HYCLATE 100 MG TABLET PO (20:55)
[2024-12-01 22:34] LABS: Potassium 5.2 mmol/L (3.4-5.0)
[2024-12-01 22:39] VITALS: BP 146/54; PULSE 56; RESP 16; TEMP 36.8; O2SAT 93
[2024-12-01 22:48] VITALS: BMI 18.2
--- NOTE | 2024-12-01 22:51 | ADMGEN ---
This patient, Dawn Bocanegra, was admitted to [facility] Room 306-02. Patient/family oriented to hospital policies and general routines including ID bracelet, bed and alarms, visiting hours, pain management, procedures, bathroom and other care routines, personal items, smoking policy, room service/diet, and visiting hours. Information on how to activate the Rapid Response Team has been discussed. Patient/Family are encouraged to report perceived risks to care and to ask questions if they do not understand what they are told or what they should do.
[2024-12-01] MEDS: SODIUM CHLORIDE 0.9% IV 1,000 ML 75 ML IV CONT (23:53)
[2024-12-02] VITALS (17 sets, daily range): BP systolic 95–148; BP diastolic 46–79; PULSE 52–89; RESP 16–20; TEMP 35.8–36.6; O2SAT 87–100; BMI 19.6
[2024-12-02 06:28] LABS: Hematocrit 39.5 % (37.0-47.0); Hemoglobin 11.9 g/dL (12.0-15.0); Mean Corpuscular HGB Conc 30.1 g/dl (32-36); Mean Corpuscular Hemoglobin 29.8 pg (26-34); Mean Corpuscular Volume 98.8 fl (80-100); Platelet Count Result 249 k/mm3 (150-375); Red Blood Count 4.00 M/mm3 (4.2-5.4); White Blood Count 13.6 K/mm3 (4.5-10.0)
[2024-12-02 06:39] LABS: Anion Gap 9 mmol/L (4-12); Blood Urea Nitrogen 37 mg/dL (7-17); Calcium 8.1 mg/dL (8.4-10.2); Carbon Dioxide 21 mmol/L (22-30); Chloride 104 mmol/L (98-107); Estimated CRCL calculation 27 ml/min; Estimated Glomerular Filt Rate 38; Glucose 94 mg/dL (65-110); Magnesium 2.1 mg/dL (1.6-2.3); Potassium 5.4 mmol/L (3.4-5.0); Sodium 134 mmol/L (137-145)
[2024-12-02 06:56] LABS: Procalcitonin 0.5 ng/mL
--- NOTE | 2024-12-02 07:46 | PM.IMPN ---
Progress Note: A&P Assessment and Plan (1) Acute kidney injury: Code(s): N17.9 - Acute kidney failure, unspecified Status: Acute Assessment and Plan: BUN --> 36 --> 37 Creat --> 1.58 --> 1.37 GFR --> 32 --> 38 Baseline GFR - >60. - slowly hydrate and monitor for signs of overload. (2) Hyperkalemia: Code(s): E87.5 - Hyperkalemia Status: Acute Assessment and Plan: - trend - baseline 3.9 - 4.3 ---> 5.6 --> 5.2 --> 5.4 - held lasix and potassium supplementation. - one time dose of lasix given today IV push. - most likely due to renal function. (3) Abnormal chest x-ray: Code(s): R93.89 - Abnormal findings on diagnostic imaging of other specified body structures Status: Acute Assessment and Plan: recently hospitalized with postobstructive pneumonia and is at rehab at [facility] - will need to follow up outpatient with [facility] for further imaging. (4) Right lower lobe lung mass: Code(s): R91.8 - Other nonspecific abnormal finding of lung field Status: Acute Assessment and Plan: - Chest x-ray shows stable right lower lobe masses and interstitial opacities in the peripheral in lower right lung. - recently treated for PNE. - possible for edema - will give one time dose of IV lasix today - given IV doxycycline and Rocephin but not febrile - will hold off on ATB treatment at this time. - patient has know luekocytosis. (5) Chronic obstructive pulmonary disease: Code(s): J44.9 - Chronic obstructive pulmonary disease, unspecified Status: Acute Assessment and Plan: - continues to cough - continue with current treatment regimen. - oxygen per nasal canula to keep sats above 90% (6) Hypertension: Code(s): I10 - Essential (primary) hypertension Status: Acute Assessment and Plan: - monitor closely - currently improved. -current blood pressures are soft, will hold medications for now (7) Anxiety: Code(s): F41.9 - Anxiety disorder, unspecified Status: Acute Assessment and Plan: Continue medications (8) Depression: Code(s): F32.A - Depression, unspecified Status: Acute Assessment and Plan: Continue medications (9) Dyslipidemia: Code(s): E78.5 - Hyperlipidemia, unspecified Status: Acute Assessment and Plan: Continue medications Plan IV: NS at 75 ml/hr. PPI - Protonix DVT: SCDS CODE - DNI - Do not intubate Disposition - patient will be discharged back to facility at discharge for continued rehab once labs are stable. Time Spent With Patient Time with patient: Greater than 35 minutes Subjective Date/time seen: 12/02/24 07:46 Interval history: Patient sitting up in bed this am, states she feels better. Still has harsh cough. She reports she wants to be discharged home to her actual home not a rehab center. Denies any fever, chills, or distress this am. Review of Systems Review of Systems: 12 systems were reviewed and are negative except for as per HPI. Constitutional: Constitutional: Reports as per HPI and Reports no additional constitutional complaints Exam Narrative: General: Thin, chronically ill-appearing female supine in bed. Weight: 49.7 kg. BMI: 18.2. HEENT: PERRL, EOMI. Sclera anicteric. Tacky mucous membranes. Neck: Supple. No JVD. Respiratory: Currently on 2 L nasal cannula. Respirations are nonlabored and she is speaking in full sentences. Lung sounds are diminished throughout with scattered rales and occasional expiratory wheezing. Cardiovascular: Bradycardic. Gastrointestinal: Abdomen is soft, nontender, and nondistended with positive bowel sounds. Skin: Warm and dry. Scattered bruising throughout the upper extremities. Extremities: No cyanosis, clubbing, or edema. Radial pulses palpable. Posterior tibialis pulses diminished. Neurological: Alert. Cranial nerves 2-12 are grossly intact. No facial asymmetry. Speech is clear. Mild weakness of the left arm and hand compared to the right. She states this is at her baseline. No drift. Psychiatric: Cooperative with appropriate mood and affect. Objective Data Vital Signs Vital Signs: Vital Signs - 24 hr 12/01/24 14:17 12/01/24 14:47 12/01/24 18:26 Temperature 97.3 F L Pulse Rate 56 L 53 L 62 Respiratory Rate 14 18 14 Blood Pressure 101/49 L 116/45 L Pulse Oximetry 98 99 Oxygen Delivery Nasal Cannula Oxygen Flow Rate 2 12/01/24 18:34 12/01/24 22:39 12/02/24 00:00 Temperature 98.2 F 97.6 F Pulse Rate 53 L 56 L 53 L Respiratory Rate 14 16 16 Blood Pressure 146/54 H 148/50 H Pulse Oximetry 93 97 Oxygen Delivery Oxygen Flow Rate 12/02/24 00:00 12/02/24 04:00 12/02/24 04:00 Temperature 97.3 F L Pulse Rate 52 L 53 L 62 Respiratory Rate 20 Blood Pressure 108/68 Pulse Oximetry 96 Oxygen Delivery Oxygen Flow Rate Intake/Output Intake/Output: Intake & Output 11/29/24 11/30/24 12/01/24 12/02/24 23:59 23:59 23:59 23:59 Intake Total 1050 150 Output Total 50 100 Balance 1000 50 Meds/Results Medications: Active Medications Generic Name Dose Route Start Last Admin Trade Name Freq PRN Reason Stop Dose Admin Acetaminophen 650 mg 12/01/24 22:27 Acetaminophen 325 Mg Tablet PO Q6H PRN Mild Pain (1-3) or Fever Albuterol 2.5 mg 12/02/24 08:00 Albuterol Sulfate Neb 2.5 Mg/3 Ml Inh INHALATION Q6HRT [facility] Atorvastatin Calcium 40 mg 12/02/24 09:00 Atorvastatin 40 Mg Tablet PO DAILY [facility] Clopidogrel Bisulfate 75 mg 12/02/24 09:00 Clopidogrel Bisulfate 75 Mg Tablet PO DAILY [facility] Enoxaparin Sodium 30 mg 12/02/24 09:00 Enoxaparin 30 Mg/0.3 Ml Syringe SUB-Q DAILY [facility] Escitalopram Oxalate 10 mg 12/02/24 21:00 Escitalopram Oxalate 10 Mg Tablet PO HS [facility] Fluticasone/Umeclidinium/Vilanterol 1 puff 12/02/24 08:00 Fluticasone/Umeclidin/Vilanter 100-62.5-25 Mcg Ellipta INHALATION DAILYRT [facility] Guaifenesin 600 mg 12/02/24 05:00 Guaifenesin 12 Hr 600 Mg Tabcr PO Q12H PRN congestion Sodium Chloride 1,000 mls @ 75 mls/hr 12/01/24 19:50 12/01/24 23:53 Normal Saline Iv IV CONT 75 mls/hr .[id number] LUCY Administration Melatonin 5 mg 12/02/24 21:00 Melatonin 5 Mg Tablet PO QHS LUCY Pantoprazole Sodium 20 mg 12/02/24 05:00 Pantoprazole Sod Sesquihydrate 20 Mg Tab PO QAM PRN Indigestion Radiology Results: ITS Impressions Chest X-Ray 12/01/24 15:19 IMPRESSION: Stable right lower lobe masses. Interstitial opacities in the peripheral and lower right lung may represent asymmetric edema or infection/pneumonitis. Head CT 12/01/24 20:44 IMPRESSION: No acute intracranial process. Labs Labs: Laboratory Results - last 24 hr 12/01/24 12/01/24 12/01/24 14:52 14:54 15:52 WBC 16.3 H RBC 4.53 Hgb 13.5 Hct 43.8 MCV 96.7 MCH 29.8 MCHC 30.8 L RDW 15.1 H Plt Count 301 MPV 10.3 Immature Gran % (Auto) 1.0 H Neut % (Auto) 83.5 H Lymph % (Auto) 9.3 L [place] % (Auto) 5.2 Eos % (Auto) 0.6 Baso % (Auto) 0.4 Lymph # (Auto) 1.51 [place] # (Auto) 0.8 H Eos # (Auto) 0.1 Baso # (Auto) 0.1 Abs Immat Gran (auto) 0.16 H Absolute Neuts (auto) 13.6 H Absolute Nucleated RBC 0.000 Nucleated RBC % 0.0 PT 14.0 INR 1.1 APTT 35.4 Sodium 135 L Potassium 5.5 H Chloride 99 Carbon Dioxide 27 Anion Gap 9 BUN 36 H Creatinine 1.58 H Estim Creat Clear Calc 24 Estimated GFR 32 L Glucose 123 H POC Capillary Glucose 127 H Lactic Acid 1.7 Calcium 9.4 Magnesium Total Bilirubin 1.0 AST 34 ALT 29 Alkaline Phosphatase 107 Total Creatine Kinase 23 L Troponin I 0.024 Total Protein 7.2 Albumin 3.7 Procalcitonin Urine Color Yellow Urine Appearance Clear Urine pH 5.0 Ur Specific [place] 1.018 Urine Protein Negative Urine Glucose (UA) Negative Urine Ketones Trace H Ur Blood (Man) Negative Urine Nitrate Negative Urine Bilirubin Negative Urine Urobilinogen 0.2 Leukocyte Esterase Rfl Negative Influenza A (RT-PCR) Influenza B (RT-PCR) RSV (RT-PCR) SARS-CoV-2 RNA (RT-PCR) 12/01/24 12/01/24 12/02/24 17:39 22:11 06:05 WBC 13.6 H RBC 4.00 L Hgb 11.9 L Hct 39.5 MCV 98.8 MCH 29.8 MCHC 30.1 L RDW 14.9 H Plt Count 249 MPV 10.3 Immature Gran % (Auto) Neut % (Auto) Lymph % (Auto) [place] % (Auto) Eos % (Auto) Baso % (Auto) Lymph # (Auto) [place] # (Auto) Eos # (Auto) Baso # (Auto) Abs Immat Gran (auto) Absolute Neuts (auto) Absolute Nucleated RBC Nucleated RBC % PT INR APTT Sodium 134 L Potassium 5.2 H 5.4 H Chloride 104 Carbon Dioxide 21 L Anion Gap 9 BUN 37 H Creatinine 1.37 H Estim Creat Clear Calc 27 Estimated GFR 38 L Glucose 94 POC Capillary Glucose Lactic Acid Calcium 8.1 L Magnesium 2.1 Total Bilirubin AST ALT Alkaline Phosphatase Total Creatine Kinase Troponin I Total Protein Albumin Procalcitonin 0.5 Urine Color Urine Appearance Urine pH Ur Specific [place] Urine Protein Urine Glucose (UA) Urine Ketones Ur Blood (Man) Urine Nitrate Urine Bilirubin Urine Urobilinogen Leukocyte Esterase Rfl Influenza A (RT-PCR) Negative Influenza B (RT-PCR) Negative RSV (RT-PCR) Negative SARS-CoV-2 RNA (RT-PCR) Negative Quality VTE Prophylaxis VTE prophylaxis: mechanical ordered Hospitalist MIPS Advance Care Plan I have confirmed that the patient's Advanced Care Plan is present, code status is documented, or surrogate decision maker is listed in patient medical record.: Yes Medication Reconciliation I have utilized all available resources to obtain, update and review the patients current medications (includes all prescriptions, OTC, herbals, cannabis, and nutritional supplements).: Yes
[2024-12-02] MEDS: ATORVASTATIN 40 MG TABLET PO (09:04)
[2024-12-02] MEDS: CLOPIDOGREL BISULFATE 75 MG TABLET PO (09:04)
[2024-12-02] MEDS: ENOXAPARIN 30 MG/0.3 ML SYRINGE SUB-Q (09:08)
[2024-12-02] MEDS: ALBUTEROL SULFATE NEB 2.5 MG/3 ML INH INHALATION ×3 (09:58→20:02)
[2024-12-02] MEDS: FLUTICASONE/UMECLIDIN/VILANTER 100-62.5-25 MCG ELLIPTA 1 PUFF INHALATION (09:59)
[2024-12-02] MEDS: FUROSEMIDE INJ 40 MG/4 ML VIAL IV PUSH (14:30)
[2024-12-02] MEDS: SODIUM CHLORIDE 0.9% IV 1,000 ML 75 ML IV CONT (16:31)
[2024-12-02] MEDS: droNABinol (*CRX) 2.5 MG CAPSULE PO (17:26)
[2024-12-02] MEDS: ESCITALOPRAM OXALATE 10 MG TABLET PO (21:08)
[2024-12-02] MEDS: MELATONIN 5 MG TABLET PO (21:09)
[2024-12-03] VITALS (12 sets, daily range): BP systolic 77–151; BP diastolic 44–65; PULSE 52–79; RESP 16–20; TEMP 36.1–36.7; O2SAT 91–100
[2024-12-03] MEDS: ALBUTEROL SULFATE NEB 2.5 MG/3 ML INH INHALATION ×4 (02:07→19:44)
--- NOTE | 2024-12-03 03:41 | PC.NURSE ---
On 12/03/24, LOBITO Arzate, provided care and completed [employer] documentation on this patient with this nurse available for assistance/questions. I have reviewed Carito's documentation and agree with the findings.
[2024-12-03] MEDS: SODIUM CHLORIDE 0.9% IV 1,000 ML 75 ML IV CONT (04:03)
[2024-12-03 06:42] LABS: Hematocrit 34.7 % (37.0-47.0); Hemoglobin 10.8 g/dL (12.0-15.0); Immature Granulocyte Percent A 0.8 % (0-0.5); Lymphocytes Absolute Auto 1.59 K/mm3 (0.9-3.2); Mean Corpuscular HGB Conc 31.1 g/dl (32-36); Mean Corpuscular Hemoglobin 30.1 pg (26-34); Mean Corpuscular Volume 96.7 fl (80-100); Nucleated Red Blood Cells Absolute Auto 0.000 K/mm3 (0.0-0.012); Nucleated Red Blood Cells Perc 0.0 % (0.0-0.2); Platelet Count Result 234 k/mm3 (150-375); Red Blood Count 3.59 M/mm3 (4.2-5.4); White Blood Count 17.0 K/mm3 (4.5-10.0)
[2024-12-03 07:12] LABS: Alanine Aminotransferase 20 U/L (6-35); Albumin Level 2.7 g/dL (3.5-5.1); Alkaline Phosphatase 74 U/L (38-126); Anion Gap 7 mmol/L (4-12); Aspartate Amino Transferase 28 U/L (14-36); Bilirubin,Total 0.5 mg/dL (0.2-1.3); Blood Urea Nitrogen 31 mg/dL (7-17); Calcium 7.6 mg/dL (8.4-10.2); Carbon Dioxide 22 mmol/L (22-30); Chloride 106 mmol/L (98-107); Estimated CRCL calculation 36 ml/min; Estimated Glomerular Filt Rate 55; Glucose 76 mg/dL (65-110); NT Pro B Type Natriuretic Pept 3970 pg/mL (19.9-100); Potassium 4.0 mmol/L (3.4-5.0); Sodium 135 mmol/L (137-145); Total Protein 5.4 g/dL (6.3-8.2)
--- NOTE | 2024-12-03 07:17 | P.CDI_ITS ---
CDI Query Clarification Request BMI: 19.1 Nutritional Diagnostic Statement: Please refer to the comprehensive nutrition assessment for further information. If you agree with diagnosis of Moderate protein calorie malnutrition related to reduced appetite and intake as evidenced by pt report of poor po intake greater than 1 month, a significant weight loss of -5% x 1 month. Please specify severity if known: * Mild * Moderate * Severe * Other/Unknown <Mackenzie Ybarra RN - Last Filed: 12/03/24 07:17> Provider Comments Moderate protein calorie malnutrition <Xiomara Chang MD - Last Filed: 12/03/24 14:07>
[2024-12-03] MEDS: FLUTICASONE/UMECLIDIN/VILANTER 100-62.5-25 MCG ELLIPTA 1 PUFF INHALATION (08:38)
--- NOTE | 2024-12-03 08:49 | PM.IMPN ---
Progress Note: A&P Assessment and Plan (1) Acute kidney injury: Code(s): N17.9 - Acute kidney failure, unspecified Status: Acute Assessment and Plan: pre renal improved receivd IVF (2) Hyperkalemia: Code(s): E87.5 - Hyperkalemia Status: Acute Assessment and Plan: improved - held lasix and potassium supplementation. - most likely due to renal function and taking po potassium at home.also on lisinopril. (3) Abnormal chest x-ray: Code(s): R93.89 - Abnormal findings on diagnostic imaging of other specified body structures Status: Acute Assessment and Plan: recently hospitalized with postobstructive pneumonia and is at rehab at [facility]. - will need to follow up outpatient with [facility] for further imaging. (4) Right lower lobe lung mass: Code(s): R91.8 - Other nonspecific abnormal finding of lung field Status: Acute Assessment and Plan: - Chest x-ray shows stable right lower lobe masses and interstitial opacities in the peripheral in lower right lung. - recently treated for PNE. - received IV doxycycline and Rocephin but not febrile - patient has know luekocytosis. (5) Chronic obstructive pulmonary disease: Code(s): J44.9 - Chronic obstructive pulmonary disease, unspecified Status: Acute Assessment and Plan: - continues to cough - continue with current treatment regimen. - oxygen per nasal canula to keep sats above 90% (6) Hypertension: Code(s): I10 - Essential (primary) hypertension Status: Acute Assessment and Plan: - monitor closely - currently improved. -current blood pressures are soft, will hold medications for now (7) Anxiety: Code(s): F41.9 - Anxiety disorder, unspecified Status: Acute Assessment and Plan: Continue medications (8) Depression: Code(s): F32.A - Depression, unspecified Status: Acute Assessment and Plan: Continue medications (9) Dyslipidemia: Code(s): E78.5 - Hyperlipidemia, unspecified Status: Acute Assessment and Plan: Continue medications Plan IV: NS at 75 ml/hr. PPI - Protonix DVT: SCDS CODE - DNI - Do not intubate Disposition - patient will be discharged back to facility at discharge for continued rehab once labs are stable. Subjective Date/time seen: 12/03/24 08:49 Interval history: per HPI: This is a 73-year-old female smoker with chronic respiratory failure with hypoxia on home oxygen for which she has historically been noncompliant, chronic obstructive pulmonary disease, right lower lobe lung mass status post radiation in October 2022, nonobstructing coronary artery disease, peripheral vascular disease with history of angioplasty and stents, carotid artery disease status post bilateral carotid endarterectomy, hyperlipidemia, gastroesophageal reflux disease, kidney stones, and osteoporosis who presented to the emergency department via EMS from [facility] for evaluation of weakness. She is known to myself and the hospitalist service from and admission earlier this month with hypoxia and presumed postobstructive pneumonia related to a right lower lobe lung mass. She completed SBRT in October 2022 for a right lower lobe mass and is increasing in size. It was recommended that she be referred to a tertiary care facility for endobronchial ultrasound biopsy of a hilar lymph node which she declined although she is following up with Dr. Palomo. She was transferred to [facility] upon discharge. She has been participating in rehab and doing well however her blood pressures have been soft at times and her lisinopril was decreased. Today a rapid response was called due to weakness noted on her left side. The patient tells me that she has chronic, mild left-sided weakness from a prior stroke and that does seem to get worse when she is not feeling well. She tells me that she has been fatigued and has been feeling a bit lightheaded and dizzy. She continues to have a cough which is chronic for her and unchanged. Her appetite is fair ?but I have been trying to eat.? She denies vertigo, syncope, near syncope, visual changes, facial droop, dysphagia, dysarthria, paresthesias, and change in weakness from baseline. No vomiting, diarrhea, dysuria In the ED: Vital signs on arrival include temperature 97.3?, blood pressure 101/49, pulse 56, respiratory rate 14, SpO2 98% on 2 L nasal cannula. Labs were significant for WBC count of 16.3, sodium 135, potassium 5.5, BUN 36, creatinine 1.58, lactic acid 1.7. Trace ketones noted in the urine. She tested negative for influenza, RSV, and COVID. Chest x-ray showed stable right lower lobe masses and interstitial opacities in the peripheral and lower right lung. Brain CT was negative for acute findings but did note stable, chronic encephalomalacia in the right hemisphere and old lacunar focal lacunar infarct in the right basal ganglia. She was given a nebulizer treatment, 1 L normal saline, methylprednisolone, ceftriaxone, and doxycycline and she is being admitted in setting with acute kidney injury and hyperkalemia. 12/03/24 patient was seen and examined at bedside. she is feeling fine. denies any chest pain, SOb,abd pain, N.V. kidney function improving. WBc worsening 17. potassium improved. at baseline has leucocytosis. will monitor for now. Review of Systems Review of Systems: 12 systems were reviewed and are negative except for as per HPI. Constitutional: Constitutional: Reports as per HPI and Reports no additional constitutional complaints Exam Narrative: General: Thin, chronically ill-appearing female supine in bed. Weight: 49.7 kg. BMI: 18.2. HEENT: PERRL, EOMI. Sclera anicteric. Tacky mucous membranes. Neck: Supple. No JVD. Respiratory: Currently on 2 L nasal cannula. Respirations are nonlabored and she is speaking in full sentences. Lung sounds are diminished throughout with scattered rales and occasional expiratory wheezing. Cardiovascular: Bradycardic. Gastrointestinal: Abdomen is soft, nontender, and nondistended with positive bowel sounds. Skin: Warm and dry. Scattered bruising throughout the upper extremities. Extremities: No cyanosis, clubbing, or edema. Radial pulses palpable. Posterior tibialis pulses diminished. Neurological: Alert. Cranial nerves 2-12 are grossly intact. No facial asymmetry. Speech is clear. Mild weakness of the left arm and hand compared to the right. She states this is at her baseline. No drift. Psychiatric: Cooperative with appropriate mood and affect. Objective Data Vital Signs Vital Signs: Vital Signs - 24 hr 12/02/24 09:12 12/02/24 10:00 12/02/24 10:09 Temperature Pulse Rate 89 88 78 Respiratory Rate 16 18 16 Blood Pressure Pulse Oximetry 87 L Oxygen Delivery Room Air Oxygen Flow Rate 12/02/24 12:00 12/02/24 12:01 12/02/24 14:32 Temperature 96.5 F L Pulse Rate 57 L 60 69 Respiratory Rate 18 16 Blood Pressure 139/50 L Pulse Oximetry 96 Oxygen Delivery Oxygen Flow Rate 12/02/24 14:39 12/02/24 16:00 12/02/24 16:03 Temperature 97.1 F L Pulse Rate 78 68 65 Respiratory Rate 16 18 Blood Pressure 144/51 H Pulse Oximetry 100 Oxygen Delivery Oxygen Flow Rate 12/02/24 20:00 12/02/24 20:00 12/02/24 20:00 Temperature 97.8 F Pulse Rate 73 64 Respiratory Rate 16 Blood Pressure 102/61 Pulse Oximetry 97 95 Oxygen Delivery Nasal Cannula Oxygen Flow Rate 2 12/02/24 20:00 12/02/24 20:02 12/02/24 20:15 Temperature 97.8 F Pulse Rate 76 76 78 Respiratory Rate 16 18 18 Blood Pressure 115/67 Pulse Oximetry 96 Oxygen Delivery Oxygen Flow Rate 12/02/24 20:15 12/03/24 00:00 12/03/24 00:00 Temperature 98.0 F Pulse Rate 61 56 L Respiratory Rate 20 Blood Pressure 97/61 L Pulse Oximetry 95 93 Oxygen Delivery Nasal Cannula Oxygen Flow Rate 2 12/03/24 04:00 12/03/24 04:00 12/03/24 08:38 Temperature 98.1 F Pulse Rate 54 L 75 Respiratory Rate 16 Blood Pressure 107/65 Pulse Oximetry 94 94 Oxygen Delivery Nasal Cannula Oxygen Flow Rate 2 12/03/24 08:38 Temperature Pulse Rate 74 Respiratory Rate 18 Blood Pressure Pulse Oximetry Oxygen Delivery Oxygen Flow Rate Intake/Output Intake/Output: Intake & Output 11/30/24 12/01/24 12/02/24 12/03/24 23:59 23:59 23:59 23:59 Intake Total 1050 1610 865 Output Total 50 850 175 Balance 1000 760 690 Meds/Results Medications: Active Medications Generic Name Dose Route Start Last Admin Trade Name Marcelinoq PRN Reason Stop Dose Admin Acetaminophen 650 mg 12/01/24 22:27 Acetaminophen 325 Mg Tablet PO Q6H PRN Mild Pain (1-3) or Fever Albuterol 2.5 mg 12/02/24 08:00 12/03/24 08:37 Albuterol Sulfate Neb 2.5 Mg/3 Ml Inh INHALATION 2.5 mg Q6HRT LUCY Administration Atorvastatin Calcium 40 mg 12/02/24 09:00 12/02/24 09:04 Atorvastatin 40 Mg Tablet PO 40 mg DAILY LUCY Administration Clopidogrel Bisulfate 75 mg 12/02/24 09:00 12/02/24 09:04 Clopidogrel Bisulfate 75 Mg Tablet PO 75 mg DAILY LUCY Administration Dronabinol 2.5 mg 12/02/24 17:00 12/02/24 17:26 Dronabinol (*Crx) 2.5 Mg Capsule PO 2.5 mg BID LUCY Administration Enoxaparin Sodium 30 mg 12/02/24 09:00 12/02/24 09:08 Enoxaparin 30 Mg/0.3 Ml Syringe SUB-Q 30 mg DAILY LUCY Administration Escitalopram Oxalate 10 mg 12/02/24 21:00 12/02/24 21:08 Escitalopram Oxalate 10 Mg Tablet PO 10 mg HS LUCY Administration Fluticasone/Umeclidinium/Vilanterol 1 puff 12/02/24 08:00 12/03/24 08:38 Fluticasone/Umeclidin/Vilanter 100-62.5-25 Mcg Ellipta INHALATION 1 puff DAILYRT LUCY Administration Guaifenesin 600 mg 12/02/24 05:00 Guaifenesin 12 Hr 600 Mg Tabcr PO Q12H PRN congestion Sodium Chloride 1,000 mls @ 75 mls/hr 12/01/24 19:50 12/03/24 04:03 Normal Saline Iv IV CONT 75 mls/hr .[id number] LUCY Administration Melatonin 5 mg 12/02/24 21:00 12/02/24 21:09 Melatonin 5 Mg Tablet PO 5 mg QHS LUCY Administration Ondansetron HCl 4 mg 12/02/24 13:30 Ondansetron Hcl Odt 4 Mg Tablet PO Q6H PRN nausea and vomiting Pantoprazole Sodium 20 mg 12/02/24 05:00 Pantoprazole Sod Sesquihydrate 20 Mg Tab PO QAM PRN Indigestion Radiology Results: ITS Impressions Chest X-Ray 12/01/24 15:19 IMPRESSION: Stable right lower lobe masses. Interstitial opacities in the peripheral and lower right lung may represent asymmetric edema or infection/pneumonitis. Head CT 12/01/24 20:44 IMPRESSION: No acute intracranial process. Labs Labs: Laboratory Results - last 24 hr 12/03/24 05:45 WBC 17.0 H RBC 3.59 L Hgb 10.8 L Hct 34.7 L MCV 96.7 MCH 30.1 MCHC 31.1 L RDW 15.2 H Plt Count 234 MPV 10.3 Immature Gran % (Auto) 0.8 H Neut % (Auto) 81.3 H Lymph % (Auto) 9.4 L [place] % (Auto) 8.1 Eos % (Auto) 0.2 Baso % (Auto) 0.2 Lymph # (Auto) 1.59 [place] # (Auto) 1.4 H Eos # (Auto) 0.0 Baso # (Auto) 0.0 Abs Immat Gran (auto) 0.13 H Absolute Neuts (auto) 13.8 H Absolute Nucleated RBC 0.000 Nucleated RBC % 0.0 Sodium 135 L Potassium 4.0 Chloride 106 Carbon Dioxide 22 Anion Gap 7 BUN 31 H Creatinine 0.99 Estim Creat Clear Calc 36 Estimated GFR 55 L Glucose 76 Calcium 7.6 L Total Bilirubin 0.5 AST 28 ALT 20 Alkaline Phosphatase 74 NT-Pro-B Natriuret Pep 3970 H Total Protein 5.4 L Albumin 2.7 L Quality VTE Prophylaxis VTE prophylaxis: mechanical ordered
[2024-12-03] MEDS: ACETAMINOPHEN 325 MG TABLET 650 MG PO (09:17)
[2024-12-03] MEDS: guaiFENesin 12 HR 600 MG TABCR PO (09:17)
[2024-12-03] MEDS: ATORVASTATIN 40 MG TABLET PO (09:18)
[2024-12-03] MEDS: PANTOPRAZOLE SOD SESQUIHYDRATE 20 MG TAB PO (09:18)
[2024-12-03] MEDS: CLOPIDOGREL BISULFATE 75 MG TABLET PO (09:18)
[2024-12-03] MEDS: droNABinol (*CRX) 2.5 MG CAPSULE PO ×2 (09:18→16:35)
[2024-12-03] MEDS: ENOXAPARIN 30 MG/0.3 ML SYRINGE SUB-Q (16:36)
[2024-12-03] MEDS: MELATONIN 5 MG TABLET PO (21:00)
[2024-12-03] MEDS: ESCITALOPRAM OXALATE 10 MG TABLET PO (21:00)
--- NOTE | 2024-12-03 23:50 | PC.NURSE ---
Blood pressure 80/50 manually. I called and discussed this with Poppy Irvin, TANO and informed her that IV fluids were stopped earlier as BNP was elevated. Pt. has a loose, moist, non-productive cough and some BLE edema. Per LUCRETIA Mcwilliams: infuse Albumin 25% in 500 ml over 4 hours.
[2024-12-04] VITALS (21 sets, daily range): BP systolic 82–150; BP diastolic 42–98; PULSE 59–129; RESP 16–30; TEMP 36.4–36.8; O2SAT 85–100
[2024-12-04] MEDS: ALBUTEROL SULFATE NEB 2.5 MG/3 ML INH INHALATION ×4 (02:02→20:10)
--- NOTE | 2024-12-04 02:13 | PC.NURSE ---
On 12/04/24, LOBITO Arzate, provided care and completed [employer] documentation on this patient with this nurse available for assistance. I have reviewed Carito's documentation and agree with the findings.
[2024-12-04 05:47] LABS: Hematocrit 30.2 % (37.0-47.0); Hemoglobin 9.1 g/dL (12.0-15.0); Immature Granulocyte Percent A 0.7 % (0-0.5); Lymphocytes Absolute Auto 1.14 K/mm3 (0.9-3.2); Mean Corpuscular HGB Conc 30.1 g/dl (32-36); Mean Corpuscular Hemoglobin 30.0 pg (26-34); Mean Corpuscular Volume 99.7 fl (80-100); Nucleated Red Blood Cells Absolute Auto 0.000 K/mm3 (0.0-0.012); Nucleated Red Blood Cells Perc 0.0 % (0.0-0.2); Platelet Count Result 179 k/mm3 (150-375); Red Blood Count 3.03 M/mm3 (4.2-5.4); White Blood Count 11.1 K/mm3 (4.5-10.0)
[2024-12-04 06:01] LABS: Alanine Aminotransferase 15 U/L (6-35); Albumin Level 2.9 g/dL (3.5-5.1); Alkaline Phosphatase 56 U/L (38-126); Anion Gap 5 mmol/L (4-12); Aspartate Amino Transferase 22 U/L (14-36); Bilirubin,Total 0.5 mg/dL (0.2-1.3); Blood Urea Nitrogen 18 mg/dL (7-17); Calcium 7.3 mg/dL (8.4-10.2); Carbon Dioxide 18 mmol/L (22-30); Chloride 112 mmol/L (98-107); Estimated CRCL calculation 47 ml/min; Estimated Glomerular Filt Rate > 60; Glucose 73 mg/dL (65-110); Potassium 4.3 mmol/L (3.4-5.0); Sodium 135 mmol/L (137-145); Total Protein 5.4 g/dL (6.3-8.2)
--- NOTE | 2024-12-04 06:02 | PC.NURSE ---
Called into room for Pt. with C/O difficultly breathing/shortness of breath. O2 stats 70% on 2 LPM, lungs course without need for stethoscope. Pt. repositioned higher in bed so she could sit up, O2 increased to 4 LPM. BNP on 12/03/24 was 3970 with today results not available.
--- NOTE | 2024-12-04 06:10 | ECG_ITS ---
Test Date: 2024-12-04 06:24:16 Measurements Intervals [place] Rate: 120 P: 12 SC: 104 QRS: 48 QRSD: 98 T: 122 QT: 305 QTc: 431 Interpretive Statements SINUS TACHYCARDIA WITH SHORT SC INTERVAL ST DEVIATION AND MODERATE T-WAVE ABNORMALITY, CONSIDER LATERAL ISCHEMIA [-0.1+ mV T-WAVE IN I/aVL/V5/V6 vs LVHWITH STRAIN PATTERN Compared to ECG 12/01/2024 14:36:28 Short SC interval now present T-wave abnormality now present Possible ischemia now present Sinus bradycardia no longer present Electronically Signed On 12-04-2024 16:46:30 CDT by Uziel Torres
[2024-12-04] MEDS: FUROSEMIDE INJ 40 MG/4 ML VIAL IV PUSH ×2 (06:16→16:43)
[2024-12-04 06:20] LABS: Alveolar/Arterial O2 Gradient 611.5 mmHg; Fractional Inspired Oxygen 100 %; HCO3 ABG 18.3 mEq/l (22.0-26.0); Oxygen Content ABG 12.8 %vol (16.0-22.0); PCO2 ABG 49.9 mmHg (35.0-45.0); PO2 ABG 51.6 mmHg (80.0-100.0); PO2 FiO2 Ratio Arterial Blood 0.52 %
--- NOTE | 2024-12-04 06:24 | P.PNCROSS_ITS ---
Event Note Event Note Event Note: At 6:02 a.m. A rapid response was called on this patient for being found acutely hypoxic. Patient had received albumin 25 g in 500 mils for hypotension of 77/46 as ordered by [facility] last evening, and upon entry into the room this morning patient was found in respiratory distress with very coarse breath sounds, oxygen saturations in 50s and tachycardic. Chest x-ray performed at the bedside showing increased vascular congestion. Audible, coarse breath sounds present from across the room. Patient with dusky appearance. Attempted application of non-rebreather at 15 L which brought patient's saturations up to mid 80s. Due to patient's continued tachypnea, hypoxia and work of breathing the decision is made to start BiPAP at setting 16/8, 100% FiO2 weaning as tolerated in the rate of 18. She is given 40 mg of IV Lasix and transferred to IMU. ABG, troponins, EKG ordered and day shift hospitalist service updated. pH is reported verbally as 7.1. Brief physical exam as follows: General: Elderly female patient sitting in high Herrera's in bed in no respiratory distress with tachypnea. Pulmonary: Lung sounds audible from across the room with coarse crackles. Cardiac: Difficult to determine heart sounds due to the amount of noise from the coarse crackles in the lungs. Diagnosis: Suspect flash pulmonary edema causing acute hypoxic respiratory failure with respiratory acidosis.
[2024-12-04 06:29] LABS: Oxygen Saturation ABG 77.4 % (95.0-100.0)
[2024-12-04 06:31] LABS: Liters per Minute 15.0 LPM; Modified Allen's Test Pass; Site Drawn RIGHT RADIAL
[2024-12-04 06:48] LABS: Troponin I 0.025 ng/mL (0.000-0.034)
--- NOTE | 2024-12-04 06:52 | ADMGEN ---
This patient, Dawn Bocanegra, was admitted to IMU Room 202-. Patient/family oriented to hospital policies and general routines including ID bracelet, bed and alarms, visiting hours, pain management, procedures, bathroom and other care routines, personal items, smoking policy, room service/diet, and visiting hours. Information on how to activate the Rapid Response Team has been discussed. Patient/Family are encouraged to report perceived risks to care and to ask questions if they do not understand what they are told or what they should do.
[2024-12-04] MEDS: cefTRIAXone 2 GM/NS 100 ML 2 GM/100 ML BAG IVPB (09:02)
[2024-12-04] MEDS: ENOXAPARIN 30 MG/0.3 ML SYRINGE SUB-Q (09:03)
--- NOTE | 2024-12-04 09:13 | PC.NURSE ---
Lovenox 3omg administered. New order for 40mg, notified Dr Chang who gave order to change start date for tomorrow. Also received order for stat ABG due to PT request to come off for a break. Orders read back and verified.
[2024-12-04 09:30] LABS: Alveolar/Arterial O2 Gradient 211.2 mmHg; Fractional Inspired Oxygen 50 %; HCO3 ABG 23.2 mEq/l (22.0-26.0); Oxygen Content ABG 16.4 %vol (16.0-22.0); Oxygen Saturation ABG 98.2 % (95.0-100.0); PCO2 ABG 33.2 mmHg (35.0-45.0); PO2 ABG 108.0 mmHg (80.0-100.0); PO2 FiO2 Ratio Arterial Blood 2.16 %
[2024-12-04] MEDS: CLOPIDOGREL BISULFATE 75 MG TABLET PO (09:58)
[2024-12-04] MEDS: ATORVASTATIN 40 MG TABLET PO (09:58)
[2024-12-04] MEDS: AZITHROMYCIN 500 MG/NS 250 ML 500 MG/250 ML BAG 250 MG IVPB (09:58)
[2024-12-04] MEDS: droNABinol (*CRX) 2.5 MG CAPSULE PO ×2 (09:58→16:43)
[2024-12-04] MEDS: VANCOMYCIN 1,250 MG/NS 250 ML 1,250 MG/250 ML BAG 166.67 MG IVPB (11:47)
--- NOTE | 2024-12-04 11:54 | PM.CNPUL ---
Assessment and Plan Assessment and plan (1) Postobstructive pneumonia: Code(s): J18.9 - Pneumonia, unspecified organism Status: Acute Assessment and Plan: She has persistent post obstructive pneumonia with 2 masses in the R lung, one in the superior segment of the RLL and another in the base of the RLL abutting the chest wall. These appear to be growing. Her last chest CT was 11/13/2024. This mass has increased since Feb 2024, now is 4.1 x 2.9 cm, and she is having progressive symptoms. She is on broad spectrum antibiotics, needs to have a biopsy of the RLL mass to confirm as her biopsy in 2022 had only scant cells. (2) Malignant neoplasm of lower lobe, right bronchus or lung: Code(s): C34.31 - Malignant neoplasm of lower lobe, right bronchus or lung Status: Acute Assessment and Plan: She has bilateral hilar lymphadenopathy, a RLL mass that is increasing in size, on 11/13/2024 was 4.1 x 2.9 cm abutting the pleural abd another nodule 1.4 cm in the RLL. Further evaluation advised. Smaller nodule is seen adjacent to this mass in the right lower lobe area. Admission before last, she declined being transferred to another facility for a bx. She is on O2, and this excludes her from having a bx here. She is too high risk. She had a CT guided biopsy of the mass in the RLL mass in 07/21/2022, scant atypical cells recovered, morphologically compatible with carcinoma but is also morphologically compatible with reactive tissue. Completed SBRT 10/09/2022. CT scan 10/20/2024 showed a 2.1 cm right lower lobe nodule consolidation possibility of neoplasm, now 4.1 x 2.9 cm. Admission before last, this area was considered for a repeat CT-guided biopsy of the mass however as she is on supplemental O2, this excludes her from having a CT guided biopsy here. She is at high risk for complications, and 10 years ago, she reports having a collapsed lung. was treated with SBRT completed October 2022. She is followed by Oncology, Dr. Palomo, last note is from 10/24/2024. (3) Chronic obstructive pulmonary disease: Code(s): J44.9 - Chronic obstructive pulmonary disease, unspecified Status: Acute Assessment and Plan: She has severe COPD radiographically, 118 hundred eighteen pack year tobacco use currently smoking 2 packs per day. She was diagnosed approximately 10 years ago. NO PFTS to review. CT in our system from 06/11/[address] scan from 11/13/2024 demonstrates severe panlobular emphysema all lung hall. Patient tells me 10 years ago she had a collapsed lung requiring a chest tube and hospitalization and recovered. One year ago she could walk 2 blocks. She has not been able to walk well for the last month after being admitted to this hospital and being in rehab for 0 days. Her walking is limited by leg pain, she has severe peripheral arterial disease. Patient had a fall and was admitted to [facility] approximately 6 months ago and at that time she was prescribed oxygen. The oxygen was delivered to her house but she did not know how to use it and returned it. At home she measures her pulse oximetry sitting on room air and this ranges from 81 to 91%. 11/13/2024: ABG on 2 L 7.46/34/70. She has been using Trelegy 200 since early November, says that it helps. (4) Acute respiratory failure with hypoxia: Code(s): J96.01 - Acute respiratory failure with hypoxia Status: Acute Assessment and Plan: She has been prescribed O2 for a while, tells me that she is not on O2, not sure if she does not know that she needs it, maybe wants to use it as needed; she on 3 L/min now with a saturation of 93%. During this last month, she has been on 2 L/min to 6 L/min. We will provide oxygen to maintain his saturation between 90% and 94%. (5) Mediastinal lymphadenopathy: Code(s): R59.0 - Localized enlarged lymph nodes Status: Acute Assessment and Plan: She has had borderline enlarged mediastinal lymph nodes on the Jul 2024 PET scan. Plan plan: I will ask RT to provide a Cornet valve, a PEP valve to help clear her secretions. She has a productive cough with copious clear secretions and difficulty expectorating these. She says that she had a Cornet valve when she was in rehab but somehow this was lost. I will also request vibratory vest to help clear her secretions and Mucomyst t.i.d. for pulmonary hygiene. She likely has an enlarging right lower lobe mass with persistent postobstructive pneumonia. She asked if she has pneumonia, and I told her that yes, I think she does, but not the usual pneumonia that we think of when we talk about pneumonia. She has enlarging right lower lobe mass which is over 4 cm and she has a PET scan from prior July which shows increasing mediastinal lymphadenopathy. She is on oxygen at rest and therefore is not a candidate for a CT-guided biopsy of her mass here. Our pulmonary department does not have endobronchial ultrasound. EBUS could be used to biopsy her mediastinal LAD. Two admissions ago, she did not want to be transferred. She may change her mind since she has been in the hosital or rehab since November 11. Oxygen as required to maintain sat 90-94%. Continue Trelegy 100 as her controller baseline therapy, and p.r.n. albuterol nebulized. Continue antibiotics, ok for Rocephin IV and oral azithromycin. All micro studies were negative last admission. I will check a CRP. History of Present Illness History of Present Illness Consult date: 12/05/24 Requesting physician: Xiomara Chang MD Chief complaint: CARINA, Pneumonia, Hyperkalemia Narrative: Pt was seen December 05, 2024 at 12:35 p.m. Room 202 bed 1. NEW: Dawn Bocanegra is a 73-year-old woman with chronic respiratory failure on oxygen, COPD, tobacco abuse with smoking up until her November 11 admission, lung cancer in the RLL s/p SBRT completed 10/09/22. Her recent admission was from home, November 11- for postobstructive pneumonia in the right lower lobe. She has panlobular emphysema with 118 pack year history of tobacco abuse. She went to rehab from November 21 through , was readmitted to the hospital side without going home, had weakness, coughing, clear sputum, and an increase in her O2 need. She is wearing O2 now, but tells me that it is new. It is not new, she has been prescribed O2 for a while. White blood cell count was elevated 16.3, has been decreasing since admission. Arterial blood gas December 04 showed a pH of 7.18 he had, pCO2 49.9 PO2 51.6 bicarbonate 18.3 saturation 77.4%. This was on 15 L non-rebreather mask. She was placed on BiPAP 17/01 with oxygen 50% with normalization of the gas, pH 7.46 pCO2 33.2, PO2 0 8, HC03 23.2 saturation 98.2%. She admitted 12/01 with weakness, was on 2 L/min. CXR 12/04 shows worsening interstitial infiltrates on CXR and O2 need has increased. She has been treated with IV Rocephin and oral azithromycin. Last admission, she was negative in influenza A/B, RSV and SARS-CoV-2, mycoplasma titers were normal, urine antigen for strep pneumonia Legionella were negative. MRSA nasal swab was negative. Extended respiratory pathogen panel was negative. She was loaded up on antibiotics, azithromycin, meropenem and vancomycin, changed to cefepime, Flagyl and doxycycline when she was admitted to the floor. Dr. Bañuelos saw her on November 14 post obstructive pneumonia, COPD, see note below. She was prescribed O2 prior to the last admission, she told the [facility] that she did not want it, and this was returned to the [facility]. She worsening respiratory status, was readmitted to the hospital on 12/01/2024. She says she has a cough with clear sputum production. She is on IV Rocephin and oral azithromycin, Trelegy 100 puff a day and p.r.n. albuterol 2.5 mg nebulized bronchodilator q.6 hours. PMH: hypertension, hyperlipidemia, GERD, subclavian artery stenosis status post stent, renal artery stenosis, peripheral artery disease status post right carotid endarterectomy 1995, left carotid endarterectomy, COPD, radiographic lung cancer status post XRT. Dr. Palomo treats her for lung cancer, completed SBRT 10/09/2022. She had a PET/CT scan 07/10/2024 showing Airspace opacities with increased activity in the lower lobes, right worse than left, consistent with radiation pneumonitis; Severe emphysema. Increased activity in normal-sized and borderline-enlarged right hilar and mediastinal lymph nodes, which may be reactive or metastatic disease. DATA * 12/04/2024; CXR Comparison: 12/01/2024 Clinical History: Hypoxia Findings: There is worsening hazy and interstitial pulmonary disease bilaterally, compatible worsening pulmonary edema. Probable underlying COPD or other chronic interstitial disease. Possible minimal left pleural effusion. Cardiomediastinal silhouette is stable. Bones and soft tissues are unremarkable. Impression: Worsening alveolar and interstitial pulmonary edema pattern. Correlate clinically for pneumonia. Underlying COPD or other chronic interstitial disease. Minimal left pleural effusion. * 07/10/2024; PET ; IMPRESSION: 1. Airspace opacities with increased activity in the lower lobes, right worse than left, consistent with radiation pneumonitis. 2. Severe emphysema. 3. Increased activity in normal-sized and borderline-enlarged right hilar and mediastinal lymph nodes, which may be reactive or metastatic disease. * 02/22/[address] 15 mm nodule RLL * 10/20/[address]; 2.1 cm irregular nodular consolidation the suprasellar right lower lobe posteriorly. This could reflect neoplasm, rounded atelectasis, less likely pneumonia. Correlate clinically.More extensive irregular area of consolidation the more inferior posterior right lower lobe, measuring up to 3.9 cm in extent. Again, diagnostic constrictions include pneumonia, rounded atelectasis, or neoplasm. * 11/13/[address] ; Mass measuring 4.1 x 2.9 cm in the right lower lobe. Further evaluation advised. Smaller nodule is seen adjacent to this mass in the right lower lobe area. This is the start of her history from 11/14/2024 with a new pulmonary consult for lung biopsy, Dr Bañuelos. . 73-year-old with a history of hypertension, hyperlipidemia, GERD, Subclavian artery stenosis status post stent, renal artery stenosis, Peripheral artery disease status post right carotid endarterectomy 1995, left carotid endarterectomy .COPD, radiographic lung cancer status post XRT. Regarding her COPD she was diagnosed approximately 10 years ago. She does not remember having PFTs. patient tells me 10 years ago she had a collapsed lung requiring a chest tube and hospitalization and recovered.One year ago she could walk 2 blocks. Three months ago which is the last time she felt normal she could walk 1 block and was limited by leg pain. Patient had a fall and was admitted to [facility] approximately 6 months ago and at that time she was prescribed oxygen. The oxygen was delivered to her house but she did not know how to use it and returned it. At home she measures her pulse oximetry sitting on room air and this ranges from 81 to 90 1%. Patient smoked tobacco from age 14 to current at 2 packs per day for 118 pack years, patient was exposed to secondhand smoke from both of her parents. 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 Patient is followed by Oncology, Dr. Palomo, last note I have is from 10/24/2024. Patient had a CT-guided biopsy of a right lung mass on 07/21/2022 with scant atypical cells. In the comment it says morphologically compatible with carcinoma but is also morphologically compatible with reactive tissue. Completed SBRT 10/09/2022. CT scan 10/20/2024 showed a 2.1 cm right lower lobe nodule consolidation possibility of neoplasm. The mass has increased in size from the previous CT when it was 1.[address]-guided biopsy of the mass ordered and based on the pathology we will decide about PET scan. 11/05/2024: PCP office visit note for 1 week of cough and congestion. Room air saturations were listed as 75%. She had rhonchi and wheezes and was prescribed a Z-Gray and steroids. Patient took these medicines but felt no improvement. 11/12/2024: Patient presented to the hospital for outpatient CT-guided lung biopsy with low saturations and was sent to the emergency room. She had a white count of 13.4, creatinine 0.85, BNP 1720 and required 2 L nasal cannula for saturation 93%. Patient left AMA. 11/13/2024: Patient returned to the emergency room with worsening shortness of breath, cough and congestion. Room air saturations were 81%. She had rales and rhonchi. White blood cell count 14.5, eosinophils 0.7%. Creatinine 0.89. CRP 15.1. COVID, influenza and RSV RT PCR assay negative. MRSA nasal swab negative. ABG on 2 L 7.46/34/70. Patient was initiated on azithromycin, meropenem and vancomycin. This was changed to vancomycin, cefepime, Flagyl and doxycycline when she was admitted to the floor. 11/13/2024: Patient tells me she feels the same as she did yesterday. She has shortness of breath at rest and with activity and has not been out of bed. She had previously been on 3 L nasal cannula but the nurse told me her saturations went to 77% about 3 minutes before I entered. She was placed on 5 L and her saturations were 91%. She complains of being tired, no chest pain no hemoptysis. she says the phlegm is increased over the last 3 months and sometimes he gets stuck in her throat. DATA 11/13/2024: CTA chest PE protocol History: 73 years Female with . shortness of breath . Comparison: October 20, 2024 Findings: PULMONARY ARTERIES: No pulmonary embolus. VISUALIZED THORACIC INLET: Normal. MEDIASTINUM: Aorta/coronary arteries: Mild atheromatous disease. Heart/other: The heart is not enlarged. Lymph nodes: Prevascular lymphadenopathy is seen with the largest measures 1.6 cm. Bilateral hilar lymphadenopathy more in the right side. Subcarinal calcified lymph notes. Calcified lymph node in the left hilum. LUNGS: Emphysematous changes of the lungs. A mass is seen in the right lower lobe measuring 4.1 x 2.9 cm. Further evaluation advised. Smaller nodule is seen medially in the right lower lobe measuring 1.4 cm. Minimal interstitial opacification is seen in the right middle lobe and right upper lobe. Interstitial opacification also seen around the mass in the right lower lobe. Minimal interstitial opacification the left lung base. Right pleural effusion. No pulmonary nodules . No pneumothorax. VISUALIZED UPPER ABDOMEN: Proximal abdominal aorta measures 3 cm. Stent is seen in the left renal artery. Status post cholecystectomy. Slightly prominent pancreatic duct. Prominent CBD measuring 1.1 cm.. Otherwise, the visualized upper abdomen is normal. MUSCULOSKELETAL: Soft tissues: The superficial soft tissues are normal. Bones: Age appropriate degenerative changes of the spine. Increased kyphosis. Osteopenia of the bones. IMPRESSION: 1. No pulmonary embolism. 2. Mass measuring 4.1 x 2.9 cm in the right lower lobe. Further evaluation advised. Smaller nodule is seen adjacent to this mass in the right lower lobe area. 3. interstitial and alveolar opacification in the right middle , lower and upper lobes and left lower lobe suggestive of pneumonitis. 4. Extensive emphysematous changes seen bilaterally. 5. Right hilar and mediastinal lymphadenopathy. 6. The proximal abdominal aorta measures 3 cm. 07/10/2024: EXAMINATION: PET skull to mid thigh DATE: 07/10/2024 12:18 INDICATION: Malignant neoplasm of lung. TECHNIQUE: Blood glucose level was 93 mg/dL. 10.966 mCi of 18-fluorodeoxyglucose (18-FDG) was administered i.v. Low dose computed tomography (CT) images were acquired from the base of the brain to the proximal thighs for attenuation correction and anatomic localization. Automated exposure control was employed. Dose-length product (DLP) was 805 mGy-cm. Positron emission tomography (PET) images were acquired in the same distribution. COMPARISON: PET/CT 06/01/2022, chest CT 06/18/2024, 05/07/23 FINDINGS: Head/neck: There are likely changes of ocular lens replacement surgeries. There are scattered areas of low attenuation in the cerebral white matter, likely chronic small vessel ischemic disease. 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 There are no pathologically enlarged lymph nodes. Chest: There is a stent in proximal left subclavian artery. There is severe emphysema. A calcified left lung nodule and calcified left hilar and mediastinal lymph nodes are consistent with old granulomatous disease. There are airspace opacities in the lower lobes, right worse than left, with increased activity. There is increased activity in normal-sized and borderline-enlarged right hilar and mediastinal lymph nodes. No pleural effusion. The heart size is normal. There are coronary artery calcifications. No pericardial effusion. Abdomen/pelvis/proximal thighs: The liver is normal. There are changes of cholecystectomy. Calcifications in the spleen are consistent with old granulomatous disease. The pancreas, adrenal glands, and kidneys are normal. There are stents in the left bilateral common iliac arteries and left external iliac artery. There are no dilated loops of bowel. 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 There is a stent in left renal artery. There are no pathologically enlarged lymph nodes. There is no free intraperitoneal fluid. There is no osseous malignancy. There is subcutaneous old fat necrosis in right buttock. IMPRESSION: 1. Airspace opacities with increased activity in the lower lobes, right worse than left, consistent with radiation pneumonitis. 2. Severe emphysema. 3. Increased activity in normal-sized and borderline-enlarged right hilar and mediastinal lymph nodes, which may be reactive or metastatic disease. 06/18/2024: EXAMINATION: CT diagnostic chest w con INDICATION: C34.31 - Malignant neoplasm of lower lobe, right bronchus... COMPARISON: 02/22/2024 and 09/11/2022 FINDINGS: Severe emphysema with biapical pleural-parenchymal scarring. Calcified nodule at the left apex along with calcified left hilar and mediastinal lymph nodes consistent with old granulomatous disease. There is septal line thickening bilaterally basilar lower lobes, right middle lobe and lingula. Interval increase in size of a high attenuation potentially enhancing 1.7 x 1.4 cm spiculated nodule in the superior segment of the right lower lobe which measured approximately 1.2 x 1.1 cm on 12/13/2023. No significant interval change in a more caudal and lower density peripheral bandlike region of consolidation extending approximately 6 cm medial laterally measuring up to 1.5 cm in thickness likely related to changes of chronic radiation pneumonitis. No pleural effusion. Heart size is normal. Atherosclerotic coronary artery calcific location. No pericardial effusion. Thoracic aorta is normal in caliber with no dissection. There is stenting at the origin of the left subclavian artery. No significant change since 09/11/2022 in mild right hilar lymphadenopathy which favors reactive or metastatic lymph nodes. No other pathologically enlarged thoracic lymphadenopathy. A few calcified splenic granulomata. Mild to moderate thoracic spondylosis with bridging osteophytes at multiple levels consistent with diffuse idiopathic skeletal hyperostosis (DISH). IMPRESSION: 1. Enlargement of a now 1.7 x 1.4 cm higher attenuation, likely enhancing spiculated nodule in the superior segment of the right lower lobe suspicious for progression of primary lung cancer. 2. No interval change in a more caudal peripheral band of consolidation in the right lower lobe likely related to chronic radiation fibrosis for reported prior treatment of an earlier mildly FDG avid nodule at this location suspicious for lung cancer. 3. Severe emphysema. 4. Mild right hilar lymphadenopathy unchanged since 09/11/2022 which in the absence of interval treatment would favor reactive over metastatic lymphadenopathy. 11/08/2023: Echo Summary 1. Left ventricular chamber dimension is normal. 2. Left ventricular systolic function is normal, estimated at 65-70%. 3. The left ventricular diastolic function is grade I diastolic dysfunction. 4. Global longitudinal strain is abnormal at -15 %. 5. Right ventricular systolic function is normal. 6. Left atrial chamber dimension is mildly enlarged. 7. There is mild tricuspid valve regurgitation. 8. There is mild pulmonic regurgitation. Left Ventricle Left ventricular chamber dimension is normal. Left ventricular systolic function is normal, estimated at 65-70%. There is no increased left ventricular wall thickness. The left ventricular diastolic function is grade I diastolic dysfunction. Global longitudinal strain is abnormal at -15 %. Right Ventricle Right ventricular chamber dimension is normal. Right ventricular systolic function is normal. Left Atria Left atrial chamber dimension is mildly enlarged. Right Atria Right atrial chamber dimension is normal. Atrial Septum Intact interatrial septum visualized by color flow imaging. Review of Systems Review of Systems: All systems reviewed & are unremarkable except as noted in HPI and below [facility] Past Medical History Medical History (Updated 12/05/24 @ 20:27 by Radha Ogden MD) Mediastinal lymphadenopathy Nonobstructive atherosclerosis of coronary artery Cerebrovascular accident Tobacco abuse Carotid artery disease Peripheral vascular disease Chronic obstructive pulmonary disease Transient ischemic attack Gastroesophageal reflux disease Hypertension Osteoporosis History of radiation therapy right lower lobe 2022 Malignant neoplasm of lower lobe, right bronchus or lung Depression Dyslipidemia Anxiety Surgical History Surgical History (Updated 12/01/24 @ 20:24 by Jacqui Shen PA-C) History of bilateral carotid endarterectomy Status post angioplasty with stent iliac, subclavian, renal arteries History of cholecystectomy History of total hysterectomy with bilateral salpingo-oophorectomy (BSO) Family History Family History Sibling Cancer of kidney Sibling Hypertension Father Hypertension Social History Social History Social History: Surrogate medical decision maker: Yaakov Bocanegra, son. Code status: Full code. Smoking packs per day: 2 Smoking cigarettes per day: 40.0 Years smoked: 40 Smoking pack-years: 80.00 Smoking status: Never smoker Tobacco type: cigarettes Second hand tobacco smoke exposure: No Additional smoking assessment comments: weaning off cigarettes Alcohol intake: never Drinks per week: 5 Substance use: never Substance use type: does not use Do You Feel Safe in your Home?: Yes Lack of Transportation: No Lack of Food: Never True Current Housing: I Have Housing Concerned About Future Housing: No Difficulty Paying Gas/Electric Bills: No Difficulty Paying for Meds: No Currently Unemployed: No Education: High School Diploma/GED Difficulty w/ Childcare or Family Care: No Living arrangements: alone Occupation/Education: retired Spiritual care concerns: No Meds Home Medications and Allergies Home Medications ?Medication ?Instructions ?Recorded ?Confirmed ?Type melatonin 5 mg capsule 5 mg PO QHS 08/29/22 12/02/24 History atorvastatin 40 mg tablet 40 mg PO DAILY 90 days #90 tabs 08/13/24 12/02/24 Rx clopidogrel 75 mg tablet (Plavix) 75 mg PO DAILY #90 tabs 08/13/24 12/02/24 Rx lisinopril 40 mg tablet 40 mg PO QAM 90 days #90 tabs 08/13/24 12/02/24 Rx escitalopram oxalate 10 mg tablet 10 mg PO HS #90 tabs 09/29/24 12/02/24 Rx pantoprazole 20 mg tablet,delayed 20 mg PO QAM PRN Indigestion #90 09/29/24 12/02/24 Rx release tabs carvedilol 12.5 mg tablet (Coreg) 12.5 mg PO Q12HR #60 tabs 11/21/24 12/02/24 Rx fluticasone fur. 100 mcg-umeclid 1 inh inhalation DAILY #60 ea 11/21/24 12/02/24 Rx 62.5 mcg-vilant 25 mcg inhalat.powder (Trelegy Ellipta) furosemide 40 mg tablet 40 mg PO QAM #14 tabs 11/21/24 12/02/24 Rx guaifenesin 600 mg tablet, 600 mg PO Q12H PRN congestion 11/21/24 12/02/24 History extended release 12 hr acetaminophen 500 mg capsule 500 mg PO Q4H PRN pain 12/02/24 12/02/24 History albuterol sulfate 1.25 mg/3 mL 2.5 mg inhalation Q6H 12/02/24 12/02/24 History solution for nebulization dronabinol 2.5 mg capsule 2.5 mg PO BID 12/02/24 12/02/24 History enoxaparin 40 mg/0.4 mL 40 mg subcut DAILY 12/02/24 12/02/24 History subcutaneous syringe ondansetron HCl 4 mg tablet 4 mg PO Q6H PRN nausea and vomiting 12/02/24 12/02/24 History potassium chloride 20 mEq 20 meq PO DAILY 12/02/24 12/02/24 History tablet,extended release(part/cryst) (Klor-Con M) Allergies Allergy/AdvReac Type Severity Reaction Status Date / Time Penicillins Allergy Severe BREATHING Verified 12/04/24 14:03 DIFFICULTY, SWELLING Vital Signs Vital Signs - 24 hr 12/03/24 12:00 12/03/24 12:00 12/03/24 14:10 Temperature 36.1 C L Pulse Rate 67 58 L 72 Respiratory Rate 16 20 Blood Pressure 143/44 H Pulse Oximetry 94 Oxygen Delivery Oxygen Flow Rate Fraction of Inspired Oxygen 12/03/24 14:19 12/03/24 16:00 12/03/24 16:00 Temperature 36.3 C L Pulse Rate 79 52 L 64 Respiratory Rate 20 18 Blood Pressure 151/44 H Pulse Oximetry 97 Oxygen Delivery Oxygen Flow Rate Fraction of Inspired Oxygen 12/03/24 19:48 12/03/24 19:48 12/03/24 19:58 Temperature Pulse Rate 62 64 Respiratory Rate 18 18 Blood Pressure Pulse Oximetry 100 Oxygen Delivery Nasal Cannula Oxygen Flow Rate 2 Fraction of Inspired Oxygen 12/03/24 20:00 12/03/24 20:00 12/03/24 20:00 Temperature 36.1 C L Pulse Rate 66 62 Respiratory Rate 20 Blood Pressure 77/46 L Pulse Oximetry 97 95 Oxygen Delivery Nasal Cannula Oxygen Flow Rate 2 Fraction of Inspired Oxygen 12/04/24 00:00 12/04/24 00:00 12/04/24 02:03 Temperature 36.6 C Pulse Rate 62 60 67 Respiratory Rate 20 18 Blood Pressure 82/42 L Pulse Oximetry 91 Oxygen Delivery Oxygen Flow Rate Fraction of Inspired Oxygen 12/04/24 02:13 12/04/24 04:00 12/04/24 06:00 Temperature Pulse Rate 68 59 L 116 H Respiratory Rate 18 24 H Blood Pressure 90/66 L Pulse Oximetry 90 Oxygen Delivery Oxygen Flow Rate Fraction of Inspired Oxygen 12/04/24 06:25 12/04/24 06:37 12/04/24 06:51 Temperature 36.6 C Pulse Rate 129 H 94 108 H Respiratory Rate 30 H 17 27 H Blood Pressure 143/98 H 116/77 Pulse Oximetry 85 L 100 99 Oxygen Delivery Non-Rebreather Mask BiPAP Oxygen Flow Rate Fraction of Inspired Oxygen 12/04/24 08:00 12/04/24 08:00 12/04/24 08:00 Temperature 36.8 C Pulse Rate 90 84 Respiratory Rate 21 H Blood Pressure 134/73 Pulse Oximetry 100 100 Oxygen Delivery BiPAP Oxygen Flow Rate Fraction of Inspired Oxygen 100 12/04/24 08:04 12/04/24 08:07 12/04/24 10:40 Temperature Pulse Rate 69 85 Respiratory Rate 18 21 H Blood Pressure Pulse Oximetry 99 96 Oxygen Delivery BiPAP Nasal Cannula Oxygen Flow Rate 2 Fraction of Inspired Oxygen Exam Narrative: GEN: Alert, oriented, not in distress. She is wearing nasal cannula O2 @ 3 L/minute saturation 100% HEENT: pupils are equal, EOMI, symmetrical face; oral membranes dry, edentulous, Mallampati III airway NECK: Trachea is midline, no palpable lymphadenopathy CHEST: Equal air entry, inspiratory rhonchi with loudest sound emanating from the right mid lung field. No expiratory wheezes. CV: Distant regular S1S2 no m/g/r ABD : (+) bowel sounds, soft and nontender Extremities : no clubbing, cyanosis, or edema; scattered ecchymoses PSYCH: normal speech, gait is not tested Machine Helper strength is equal Results Laboratory Findings 12/05/24 04:19 12/05/24 04:19 ABG, PT/INR, D-dimer: PT/INR, D-dimer PT 14.0 Seconds (11.1-14.7) 12/01/24 14:54 INR 1.1 12/01/24 14:54 Abnormal lab findings: Abnormal Labs 12/01/24 12/01/24 12/01/24 14:52 14:54 15:52 WBC 16.3 H RBC Hgb Hct MCHC 30.8 L RDW 15.1 H Immature Gran % (Auto) 1.0 H Neut % (Auto) 83.5 H Lymph % (Auto) 9.3 L [place] % (Auto) Baso % (Auto) [place] # (Auto) 0.8 H Abs Immat Gran (auto) 0.16 H Absolute Neuts (auto) 13.6 H ABG pH ABG pCO2 ABG pO2 ABG HCO3 ABG O2 Saturation ABG O2 Content Oxyhemoglobin Sodium 135 L Potassium 5.5 H Chloride Carbon Dioxide BUN 36 H Creatinine 1.58 H Estimated GFR 32 L Glucose 123 H POC Capillary Glucose 127 H Calcium Total Creatine Kinase 23 L NT-Pro-B Natriuret Pep Total Protein Albumin Urine Ketones Trace H 12/01/24 12/02/24 12/03/24 22:11 06:05 05:45 WBC 13.6 H 17.0 H RBC 4.00 L 3.59 L Hgb 11.9 L 10.8 L Hct 34.7 L MCHC 30.1 L 31.1 L RDW 14.9 H 15.2 H Immature Gran % (Auto) 0.8 H Neut % (Auto) 81.3 H Lymph % (Auto) 9.4 L [place] % (Auto) Baso % (Auto) [place] # (Auto) 1.4 H Abs Immat Gran (auto) 0.13 H Absolute Neuts (auto) 13.8 H ABG pH ABG pCO2 ABG pO2 ABG HCO3 ABG O2 Saturation ABG O2 Content Oxyhemoglobin Sodium 134 L 135 L Potassium 5.2 H 5.4 H Chloride Carbon Dioxide 21 L BUN 37 H 31 H Creatinine 1.37 H Estimated GFR 38 L 55 L Glucose POC Capillary Glucose Calcium 8.1 L 7.6 L Total Creatine Kinase NT-Pro-B Natriuret Pep 3970 H Total Protein 5.4 L Albumin 2.7 L Urine Ketones 12/04/24 12/04/24 12/04/24 05:33 06:07 06:13 WBC 11.1 H RBC 3.03 L Hgb 9.1 L Hct 30.2 L MCHC 30.1 L RDW 15.5 H Immature Gran % (Auto) 0.7 H Neut % (Auto) 79.1 H Lymph % (Auto) 10.3 L [place] % (Auto) 8.9 H Baso % (Auto) 0.1 L [place] # (Auto) 1.0 H Abs Immat Gran (auto) 0.08 H Absolute Neuts (auto) 8.8 H ABG pH 7.183 L* ABG pCO2 49.9 H ABG pO2 51.6 L ABG HCO3 18.3 L ABG O2 Saturation 77.4 L* ABG O2 Content 12.8 L Oxyhemoglobin 74.5 L* Sodium 135 L Potassium Chloride 112 H Carbon Dioxide 18 L BUN 18 H D Creatinine Estimated GFR Glucose POC Capillary Glucose 164 H Calcium 7.3 L Total Creatine Kinase NT-Pro-B Natriuret Pep Total Protein 5.4 L Albumin 2.9 L Urine Ketones
--- NOTE | 2024-12-04 11:57 | PM.IMPN ---
Progress Note: A&P Assessment and Plan (1) Acute kidney injury: Code(s): N17.9 - Acute kidney failure, unspecified Status: Acute Assessment and Plan: pre renal improved receivd IVF (2) Hyperkalemia: Code(s): E87.5 - Hyperkalemia Status: Acute Assessment and Plan: improved - held lasix and potassium supplementation. - most likely due to renal function and taking po potassium at home.also on lisinopril. (3) Abnormal chest x-ray: Code(s): R93.89 - Abnormal findings on diagnostic imaging of other specified body structures Status: Acute Assessment and Plan: recently hospitalized with postobstructive pneumonia and is at rehab at [facility]. - will need to follow up outpatient with Primary for further imaging. (4) Right lower lobe lung mass: Code(s): R91.8 - Other nonspecific abnormal finding of lung field Status: Acute Assessment and Plan: - Chest x-ray shows stable right lower lobe masses and interstitial opacities in the peripheral in lower right lung. - recently treated for PNE. - received IV doxycycline and Rocephin but not febrile - patient has know leukocytosis. patient meet criteria for SIRS/Sepsis started on IV Abx. follow culture results (5) Chronic obstructive pulmonary disease: Code(s): J44.9 - Chronic obstructive pulmonary disease, unspecified Status: Acute Assessment and Plan: - continues to cough - continue with current treatment regimen. - oxygen per nasal canula to keep sats above 90% (6) Hypertension: Code(s): I10 - Essential (primary) hypertension Status: Acute Assessment and Plan: - monitor closely - currently improved. -had soft BP. current blood pressures improving, will hold medications for now (7) Anxiety: Code(s): F41.9 - Anxiety disorder, unspecified Status: Acute Assessment and Plan: Continue medications (8) Depression: Code(s): F32.A - Depression, unspecified Status: Acute Assessment and Plan: Continue medications (9) Dyslipidemia: Code(s): E78.5 - Hyperlipidemia, unspecified Status: Acute Assessment and Plan: Continue medications (10) Acute respiratory failure: Code(s): J96.00 - Acute respiratory failure, unspecified whether with hypoxia or hypercapnia Status: Acute Assessment and Plan: pulm edema received lasix Off of bipap today pulm team on board (11) Moderate malnutrition: Code(s): E44.0 - Moderate protein-calorie malnutrition Status: Acute Assessment and Plan: dietitian on board Plan PPI - Protonix DVT: SCDS/lovenox CODE - DNI - Do not intubate Disposition - patient will be discharged back to facility at discharge for continued rehab once labs are stable. 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 She is known to myself and the hospitalist service from and admission earlier this month with hypoxia and presumed postobstructive pneumonia related to a right lower lobe lung mass. She completed SBRT in October 2022 for a right lower lobe mass and is increasing in size. It was recommended that she be referred to a tertiary care facility for endobronchial ultrasound biopsy of a hilar lymph node which she declined although she is following up with Dr. Palomo. She was transferred to [facility] upon discharge. She has been participating in rehab and doing well however her blood pressures have been soft at times and her lisinopril was decreased. Today a rapid response was called due to weakness noted on her left side. The patient tells me that she has chronic, mild left-sided weakness from a prior stroke and that does seem to get worse when she is not feeling well. She tells me that she has been fatigued and has been feeling a bit lightheaded and dizzy. She continues to have a cough which is chronic for her and unchanged. Her appetite is fair ?but I have been trying to eat.? She denies vertigo, syncope, near syncope, visual changes, facial droop, dysphagia, dysarthria, paresthesias, and change in weakness from baseline. No vomiting, diarrhea, dysuria In the ED: Vital signs on arrival include temperature 97.3?, blood pressure 101/49, pulse 56, respiratory rate 14, SpO2 98% on 2 L nasal cannula. Labs were significant for WBC count of 16.3, sodium 135, potassium 5.5, BUN 36, creatinine 1.58, lactic acid 1.7. Trace ketones noted in the urine. She tested negative for influenza, RSV, and COVID. Chest x-ray showed stable right lower lobe masses and interstitial opacities in the peripheral and lower right lung. Brain CT was negative for acute findings but did note stable, chronic encephalomalacia in the right hemisphere and old lacunar focal lacunar infarct in the right basal ganglia. She was given a nebulizer treatment, 1 L normal saline, methylprednisolone, ceftriaxone, and doxycycline and she is being admitted in setting with acute kidney injury and hyperkalemia. 12/03/24 kidney function improving. WBc worsening 17. potassium improved. at baseline has leucocytosis. will monitor for now. 12/04/24 patient was seen and examined at bedside. she is feeling fine. denies any chest pain, abd pain, N.V.breathing is better. Patient received albumin 25 g in 500 mils for hypotension of 77/46 yesterday afternoon and this morning developed resp failure. CXr showed pul edema. initially needed nonrebreathing at 15 lit and then changed to BIPAP. ABG showed resp acidosis. patient received lasix This morning patient was feeling better and ABG improving. Pulm team has been consulted. Patient met sepsis/SIRS/ possible pneumonia with tachycardia and tachypnea and low BP. Added IV Abx. will get B/C. Review of Systems Review of Systems: 12 systems were reviewed and are negative except for as per HPI. Constitutional: Constitutional: Reports as per HPI and Reports no additional constitutional complaints Exam Narrative: General: Thin, chronically ill-appearing female supine in bed. Weight: 49.7 kg. BMI: 18.2. HEENT: PERRL, EOMI. Sclera anicteric. Tacky mucous membranes. Neck: Supple. No JVD. Respiratory: Currently on 2 L nasal cannula. Respirations are nonlabored and she is speaking in full sentences. Lung sounds are diminished throughout with scattered rales and occasional expiratory wheezing. Cardiovascular: Bradycardic. Gastrointestinal: Abdomen is soft, nontender, and nondistended with positive bowel sounds. Skin: Warm and dry. Scattered bruising throughout the upper extremities. Extremities: No cyanosis, clubbing, or edema. Radial pulses palpable. Posterior tibialis pulses diminished. Neurological: Alert. Cranial nerves 2-12 are grossly intact. No facial asymmetry. Speech is clear. Mild weakness of the left arm and hand compared to the right. She states this is at her baseline. No drift. Psychiatric: Cooperative with appropriate mood and affect. Objective Data Vital Signs Vital Signs: Vital Signs - 24 hr 12/03/24 12:00 12/03/24 12:00 12/03/24 14:10 Temperature 97.0 F L Pulse Rate 67 58 L 72 Respiratory Rate 16 20 Blood Pressure 143/44 H Pulse Oximetry 94 Oxygen Delivery Oxygen Flow Rate Fraction of Inspired Oxygen 12/03/24 14:19 12/03/24 16:00 12/03/24 16:00 Temperature 97.4 F L Pulse Rate 79 52 L 64 Respiratory Rate 20 18 Blood Pressure 151/44 H Pulse Oximetry 97 Oxygen Delivery Oxygen Flow Rate Fraction of Inspired Oxygen 12/03/24 19:48 12/03/24 19:48 12/03/24 19:58 Temperature Pulse Rate 62 64 Respiratory Rate 18 18 Blood Pressure Pulse Oximetry 100 Oxygen Delivery Nasal Cannula Oxygen Flow Rate 2 Fraction of Inspired Oxygen 12/03/24 20:00 12/03/24 20:00 12/03/24 20:00 Temperature 96.9 F L Pulse Rate 66 62 Respiratory Rate 20 Blood Pressure 77/46 L Pulse Oximetry 97 95 Oxygen Delivery Nasal Cannula Oxygen Flow Rate 2 Fraction of Inspired Oxygen 12/04/24 00:00 12/04/24 00:00 12/04/24 02:03 Temperature 97.9 F Pulse Rate 62 60 67 Respiratory Rate 20 18 Blood Pressure 82/42 L Pulse Oximetry 91 Oxygen Delivery Oxygen Flow Rate Fraction of Inspired Oxygen 12/04/24 02:13 12/04/24 04:00 12/04/24 06:00 Temperature Pulse Rate 68 59 L 116 H Respiratory Rate 18 24 H Blood Pressure 90/66 L Pulse Oximetry 90 Oxygen Delivery Oxygen Flow Rate Fraction of Inspired Oxygen 12/04/24 06:25 12/04/24 06:37 12/04/24 06:51 Temperature 97.8 F Pulse Rate 129 H 94 108 H Respiratory Rate 30 H 17 27 H Blood Pressure 143/98 H 116/77 Pulse Oximetry 85 L 100 99 Oxygen Delivery Non-Rebreather Mask BiPAP Oxygen Flow Rate Fraction of Inspired Oxygen 12/04/24 08:00 12/04/24 08:00 12/04/24 08:00 Temperature 98.3 F Pulse Rate 90 84 Respiratory Rate 21 H Blood Pressure 134/73 Pulse Oximetry 100 100 Oxygen Delivery BiPAP Oxygen Flow Rate Fraction of Inspired Oxygen 100 12/04/24 08:04 12/04/24 08:07 12/04/24 10:40 Temperature Pulse Rate 69 85 Respiratory Rate 18 21 H Blood Pressure Pulse Oximetry 99 96 Oxygen Delivery BiPAP Nasal Cannula Oxygen Flow Rate 2 Fraction of Inspired Oxygen Intake/Output Intake/Output: Intake & Output 12/01/24 12/02/24 12/03/24 12/04/24 23:59 23:59 23:59 23:59 Intake Total 1050 1610 1087 620 Output Total 50 511 313 4772 Balance 1000 760 232 -796 Meds/Results Medications: Active Medications Generic Name Dose Route Start Last Admin Trade Name Freq PRN Reason Stop Dose Admin Acetaminophen 650 mg 12/01/24 22:27 12/03/24 09:17 Acetaminophen 325 Mg Tablet PO 650 mg Q6H PRN Administration Mild Pain (1-3) or Fever Albuterol 2.5 mg 12/02/24 08:00 12/04/24 08:03 Albuterol Sulfate Neb 2.5 Mg/3 Ml Inh INHALATION 2.5 mg Q6HRT LUCY Administration Atorvastatin Calcium 40 mg 12/02/24 09:00 12/04/24 09:58 Atorvastatin 40 Mg Tablet PO 40 mg DAILY LUCY Administration Clopidogrel Bisulfate 75 mg 12/02/24 09:00 12/04/24 09:58 Clopidogrel Bisulfate 75 Mg Tablet PO 75 mg DAILY LUCY Administration Dronabinol 2.5 mg 12/02/24 17:00 12/04/24 09:58 Dronabinol (*Crx) 2.5 Mg Capsule PO 2.5 mg BID LUCY Administration Enoxaparin Sodium 40 mg 12/05/24 09:00 Enoxaparin 40 Mg/0.4 Ml Syringe SUB-Q DAILY LUCY Escitalopram Oxalate 10 mg 12/02/24 21:00 12/03/24 21:00 Escitalopram Oxalate 10 Mg Tablet PO 10 mg HS LUCY Administration Fluticasone/Umeclidinium/Vilanterol 1 puff 12/02/24 08:00 12/04/24 08:03 Fluticasone/Umeclidin/Vilanter 100-62.5-25 Mcg Ellipta INHALATION Not Given DAILYRT [facility] Furosemide 40 mg 12/04/24 17:00 Furosemide Inj 40 Mg/4 Ml Vial IV PUSH BID LUCY Guaifenesin 600 mg 12/02/24 05:00 12/03/24 09:17 Guaifenesin 12 Hr 600 Mg Tabcr PO 600 mg Q12H PRN Administration congestion Ceftriaxone Sodium 2 gm in 100 mls @ 200 mls/hr 12/04/24 09:00 12/04/24 09:02 Rocephin 2 Gm/Ns 100 Ml IVPB 200 mls/hr Q24H LUCY Administration Azithromycin 500 mg in 250 mls @ 250 mls/hr 12/04/24 09:00 12/04/24 09:58 Zithromax IVPB 250 mls/hr Q24H LUCY Administration Vancomycin HCl 1,250 mg in 250 mls @ 166.667 mls/hr 12/04/24 12:00 12/04/24 11:47 Vancomycin 1,250 Mg/Ns 250 Ml IVPB 12/04/24 13:29 166.67 mls/hr ONCE ONE Administration Vancomycin HCl 1,000 mg in 250 mls @ 250 mls/hr 12/05/24 12:00 Vancomycin 1,000 Mg/Ns 250 Ml IVPB Q24H LUCY Melatonin 5 mg 12/02/24 21:00 12/03/24 21:00 Melatonin 5 Mg Tablet PO 5 mg QHS LUCY Administration Ondansetron HCl 4 mg 12/02/24 13:30 Ondansetron Hcl Odt 4 Mg Tablet PO Q6H PRN nausea and vomiting Pantoprazole Sodium 20 mg 12/02/24 05:00 12/03/24 09:18 Pantoprazole Sod Sesquihydrate 20 Mg Tab PO 20 mg QAM PRN Administration Indigestion Radiology Results: ITS Impressions Head CT 12/01/24 20:44 IMPRESSION: No acute intracranial process. Chest X-Ray 12/04/24 06:48 Impression: Worsening alveolar and interstitial pulmonary edema pattern. Correlate clinically for pneumonia. Underlying COPD or other chronic interstitial disease. Minimal left pleural effusion. Labs Labs: Laboratory Results - last 24 hr 12/04/24 12/04/24 12/04/24 05:33 06:07 06:13 WBC 11.1 H RBC 3.03 L Hgb 9.1 L Hct 30.2 L MCV 99.7 MCH 30.0 MCHC 30.1 L RDW 15.5 H Plt Count 179 MPV 10.0 Immature Gran % (Auto) 0.7 H Neut % (Auto) 79.1 H Lymph % (Auto) 10.3 L [place] % (Auto) 8.9 H Eos % (Auto) 0.9 Baso % (Auto) 0.1 L Lymph # (Auto) 1.14 [place] # (Auto) 1.0 H Eos # (Auto) 0.1 Baso # (Auto) 0.0 Abs Immat Gran (auto) 0.08 H Absolute Neuts (auto) 8.8 H Absolute Nucleated RBC 0.000 Nucleated RBC % 0.0 Puncture Site Right radial ABG pH 7.183 L* ABG pCO2 49.9 H ABG pO2 51.6 L ABG PO2/FiO2 Ratio 0.52 ABG HCO3 18.3 L ABG O2 Saturation 77.4 L* ABG O2 Content 12.8 L ABG Base Excess -9.9 A-a Gradient 611.5 Oxyhemoglobin 74.5 L* Total Hemoglobin 12.2 O2 Delivery Device Non-rebreather mask O2 Liters/Min 15.0 FiO2 100 Sodium 135 L Potassium 4.3 Chloride 112 H Carbon Dioxide 18 L Anion Gap 5 BUN 18 H D Creatinine 0.75 Estim Creat Clear Calc 47 Estimated GFR > 60 Glucose 73 POC Capillary Glucose 164 H Calcium 7.3 L Total Bilirubin 0.5 AST 22 ALT 15 Alkaline Phosphatase 56 Troponin I 0.025 Total Protein 5.4 L Albumin 2.9 L Quality VTE Prophylaxis VTE prophylaxis: mechanical ordered
[2024-12-04 12:02] LABS: Modified Allen's Test Pass; Site Drawn RIGHT RADIAL
[2024-12-04 13:11] LABS: MRSA (PCR) NOT DETECTED (NOT DETECTE)
--- NOTE | 2024-12-04 18:22 | ECG_ITS ---
Test Date: 2024-12-04 18:37:08 Measurements Intervals [place] Rate: 63 P: 50 ID: [id number] QRS: 0 QRSD: 108 T: 59 QT: 455 QTc: 468 Interpretive Statements SINUS RHYTHM MINIMAL ST DEPRESSION [0.025+ mV ST DEPRESSION] Compared to ECG 12/04/2024 06:24:16 heart rate decreased Electronically Signed On 12-05-2024 12:45:00 CDT by Nomi Álvarez M.D.
[2024-12-04 18:51] LABS: Hematocrit 33.7 % (37.0-47.0); Hemoglobin 10.5 g/dL (12.0-15.0); Immature Granulocyte Percent A 0.5 % (0-0.5); Lymphocytes Absolute Auto 1.49 K/mm3 (0.9-3.2); Mean Corpuscular HGB Conc 31.2 g/dl (32-36); Mean Corpuscular Hemoglobin 30.0 pg (26-34); Mean Corpuscular Volume 96.3 fl (80-100); Nucleated Red Blood Cells Absolute Auto 0.000 K/mm3 (0.0-0.012); Nucleated Red Blood Cells Perc 0.0 % (0.0-0.2); Platelet Count Result 187 k/mm3 (150-375); Red Blood Count 3.50 M/mm3 (4.2-5.4); White Blood Count 12.9 K/mm3 (4.5-10.0)
[2024-12-04 19:05] LABS: Alanine Aminotransferase 17 U/L (6-35); Albumin Level 3.3 g/dL (3.5-5.1); Alkaline Phosphatase 70 U/L (38-126); Anion Gap 7 mmol/L (4-12); Aspartate Amino Transferase 36 U/L (14-36); Bilirubin,Total 0.6 mg/dL (0.2-1.3); Blood Urea Nitrogen 14 mg/dL (7-17); Calcium 7.8 mg/dL (8.4-10.2); Carbon Dioxide 24 mmol/L (22-30); Chloride 105 mmol/L (98-107); Estimated CRCL calculation 44 ml/min; Estimated Glomerular Filt Rate > 60; Glucose 83 mg/dL (65-110); Magnesium 1.8 mg/dL (1.6-2.3); Potassium 3.7 mmol/L (3.4-5.0); Sodium 136 mmol/L (137-145); Total Protein 6.0 g/dL (6.3-8.2)
[2024-12-04] MEDS: ESCITALOPRAM OXALATE 10 MG TABLET PO (21:03)
[2024-12-04] MEDS: MELATONIN 5 MG TABLET PO (21:03)
[2024-12-04] MEDS: POTASSIUM/PHOSPHORUS/SODIUM 1.5 GM PACKET 2 PACKET PO (22:25)
[2024-12-05] VITALS (27 sets, daily range): BP systolic 101–164; BP diastolic 44–66; PULSE 62–105; RESP 18–20; TEMP 36.6–36.8; O2SAT 91–99
[2024-12-05] MEDS: ALBUTEROL SULFATE NEB 2.5 MG/3 ML INH INHALATION ×4 (01:48→19:51)
[2024-12-05 04:50] LABS: Hematocrit 36.2 % (37.0-47.0); Hemoglobin 11.1 g/dL (12.0-15.0); Immature Granulocyte Percent A 0.7 % (0-0.5); Lymphocytes Absolute Auto 1.19 K/mm3 (0.9-3.2); Mean Corpuscular HGB Conc 30.7 g/dl (32-36); Mean Corpuscular Hemoglobin 29.8 pg (26-34); Mean Corpuscular Volume 97.1 fl (80-100); Nucleated Red Blood Cells Absolute Auto 0.000 K/mm3 (0.0-0.012); Nucleated Red Blood Cells Perc 0.0 % (0.0-0.2); Platelet Count Result 180 k/mm3 (150-375); Red Blood Count 3.73 M/mm3 (4.2-5.4); White Blood Count 12.1 K/mm3 (4.5-10.0)
[2024-12-05 05:15] LABS: Alanine Aminotransferase 19 U/L (6-35); Albumin Level 3.5 g/dL (3.5-5.1); Alkaline Phosphatase 79 U/L (38-126); Anion Gap 9 mmol/L (4-12); Aspartate Amino Transferase 28 U/L (14-36); Bilirubin,Total 0.6 mg/dL (0.2-1.3); Blood Urea Nitrogen 13 mg/dL (7-17); Calcium 7.7 mg/dL (8.4-10.2); Carbon Dioxide 23 mmol/L (22-30); Chloride 104 mmol/L (98-107); Estimated CRCL calculation 44 ml/min; Estimated Glomerular Filt Rate > 60; Glucose 80 mg/dL (65-110); Potassium 3.7 mmol/L (3.4-5.0); Sodium 136 mmol/L (137-145); Total Protein 6.2 g/dL (6.3-8.2)
[2024-12-05] MEDS: FLUTICASONE/UMECLIDIN/VILANTER 100-62.5-25 MCG ELLIPTA 1 PUFF INHALATION (07:57)
--- NOTE | 2024-12-05 08:33 | PM.IMPN ---
Progress Note: A&P Assessment and Plan (1) Acute respiratory failure: Code(s): J96.00 - Acute respiratory failure, unspecified whether with hypoxia or hypercapnia Status: Acute Assessment and Plan: 12/05 Seems to be responding to IV furosemide due to possible volume overload with diastolic dysfunction (EF 60-65%) Continue diuresis, monitor labs As procalcitonin was 0.5 12/02, will likely d/c antibiotics if blood cultures remain negative 12/06 (2) Abnormal chest x-ray: Code(s): R93.89 - Abnormal findings on diagnostic imaging of other specified body structures Status: Acute Assessment and Plan: RLL lung mass, s/p RT, possible pulmonary edema (3) Right lower lobe lung mass: Code(s): R91.8 - Other nonspecific abnormal finding of lung field Status: Acute Assessment and Plan: - Chest x-ray shows stable right lower lobe masses and interstitial opacities in the peripheral in lower right lung - recently treated for PNA, received IV doxycycline and Rocephin but not febrile - patient has know leukocytosis. patient meet criteria for SIRS/Sepsis Azithromycin + Ceftriaxone started 12/04 (4) Moderate malnutrition: Code(s): E44.0 - Moderate protein-calorie malnutrition Status: Acute Assessment and Plan: Encouraged PO intake, continue Ensure (5) Acute kidney injury: Code(s): N17.9 - Acute kidney failure, unspecified Status: Acute Assessment and Plan: Resolved (6) Chronic obstructive pulmonary disease: Code(s): J44.9 - Chronic obstructive pulmonary disease, unspecified Status: Acute Assessment and Plan: - continues to cough - continue with current treatment regimen. - oxygen per nasal canula to keep sats above 90% - was on CPAP with FiO2 50% overnight 12/04-12/05, 12/05 on 3 LPM by AR with sats in 90s (7) Hyperkalemia: Code(s): E87.5 - Hyperkalemia Status: Acute Assessment and Plan: Resolved (8) Hypertension: Code(s): I10 - Essential (primary) hypertension Status: Acute Assessment and Plan: BP controlled (9) Anxiety: Code(s): F41.9 - Anxiety disorder, unspecified Status: Acute Assessment and Plan: Continue medications (10) Depression: Code(s): F32.A - Depression, unspecified Status: Acute Assessment and Plan: Continue medications (11) Dyslipidemia: Code(s): E78.5 - Hyperlipidemia, unspecified Status: Acute Assessment and Plan: Continue medications Subjective Date/time seen: 12/05/24 08:33 Interval history: Unable to tolerate BiPAP. Think she was wearing at this morning when her blood gases were drawn. Poor appetite. Still feels weak. Still with cough and clear sputum. Short of breath with exertion. Denied chest pain abdominal pain back pain. Mild headache intermittently. No edema. No abnormal bleeding. No dizziness. Review of Systems Review of Systems: All systems reviewed & are unremarkable except as noted in HPI and below Exam Narrative: HEENT: PERRL, sclerae nonicteric, pharyngeal mucosa pink and intact NECK: No JVD, adenopathy, or thyromegaly CHEST: Coarse breath sounds with expiratory rhonchi, normal effort HEART: NL S1/S2, regular, no murmur ABDOMEN: BS+, soft, nontender, no mass, no bruits EXTREMITIES: No cyanosis, edema, or clubbing NEUROLOGIC: CN intact and symmetric to inspection. MUSCULOSKELETAL: Tone and strength symmetric PSYCH: Alert. Oriented to person, place, and time Objective Data Vital Signs Vital Signs: Vital Signs - 24 hr 12/04/24 10:40 12/04/24 10:40 12/04/24 12:00 Temperature 97.8 F Pulse Rate 88 Respiratory Rate 22 H Blood Pressure 103/52 L Pulse Oximetry 96 95 Oxygen Delivery Nasal Cannula Nasal Cannula Oxygen Flow Rate 2 4 Fraction of Inspired Oxygen 12/04/24 12:00 12/04/24 12:00 12/04/24 12:00 Temperature Pulse Rate 69 Respiratory Rate Blood Pressure 103/52 L Pulse Oximetry 95 Oxygen Delivery Nasal Cannula Oxygen Flow Rate 4 Fraction of Inspired Oxygen 12/04/24 12:37 12/04/24 16:00 12/04/24 16:00 Temperature 97.5 F L Pulse Rate 60 Respiratory Rate 20 Blood Pressure 106/46 L 146/54 H Pulse Oximetry 96 98 Oxygen Delivery Nasal Cannula Oxygen Flow Rate 4 Fraction of Inspired Oxygen 12/04/24 16:00 12/04/24 16:19 12/04/24 20:00 Temperature 97.8 F Pulse Rate 63 66 Respiratory Rate 20 Blood Pressure 134/45 L Pulse Oximetry 97 97 Oxygen Delivery Nasal Cannula Oxygen Flow Rate 4 Fraction of Inspired Oxygen 12/04/24 20:00 12/04/24 20:00 12/04/24 20:00 Temperature 97.8 F Pulse Rate 66 Respiratory Rate Blood Pressure 150/42 H Pulse Oximetry 100 Oxygen Delivery Nasal Cannula Oxygen Flow Rate 4 Fraction of Inspired Oxygen 12/04/24 20:10 12/04/24 20:10 12/04/24 20:19 Temperature Pulse Rate 64 63 Respiratory Rate 16 16 Blood Pressure Pulse Oximetry 97 Oxygen Delivery Nasal Cannula Oxygen Flow Rate 3 Fraction of Inspired Oxygen 12/04/24 22:00 12/04/24 22:48 12/05/24 00:00 Temperature 97.8 F Pulse Rate 63 67 67 Respiratory Rate 18 20 Blood Pressure 155/48 H Pulse Oximetry 95 91 Oxygen Delivery BiPAP Oxygen Flow Rate Fraction of Inspired Oxygen 12/05/24 00:00 12/05/24 00:00 12/05/24 01:48 Temperature Pulse Rate 62 70 Respiratory Rate 19 Blood Pressure Pulse Oximetry 98 99 Oxygen Delivery BiPAP BiPAP Oxygen Flow Rate Fraction of Inspired Oxygen 50 12/05/24 01:48 12/05/24 01:56 12/05/24 02:00 Temperature Pulse Rate 70 73 66 Respiratory Rate 19 19 Blood Pressure Pulse Oximetry Oxygen Delivery Oxygen Flow Rate Fraction of Inspired Oxygen 12/05/24 04:00 12/05/24 04:00 12/05/24 04:00 Temperature 97.8 F Pulse Rate 66 68 Respiratory Rate 20 Blood Pressure 107/55 L Pulse Oximetry 91 92 Oxygen Delivery BiPAP Oxygen Flow Rate Fraction of Inspired Oxygen 50 12/05/24 06:00 12/05/24 07:57 12/05/24 07:59 Temperature 98.3 F Pulse Rate 69 70 72 Respiratory Rate 18 20 Blood Pressure 164/58 H Pulse Oximetry 94 Oxygen Delivery Oxygen Flow Rate Fraction of Inspired Oxygen 12/05/24 08:00 12/05/24 08:07 Temperature Pulse Rate 73 78 Respiratory Rate 18 18 Blood Pressure Pulse Oximetry 93 Oxygen Delivery Nasal Cannula Oxygen Flow Rate 3 Fraction of Inspired Oxygen Intake/Output Intake/Output: Intake & Output 12/02/24 12/03/24 12/04/24 12/05/24 23:59 23:59 23:59 23:59 Intake Total 1610 1087 1760 240 Output Total 624 043 9856 300 Balance 760 762 -290 -60 Meds/Results Medications: Active Medications Generic Name Dose Route Start Last Admin Trade Name Freq PRN Reason Stop Dose Admin Acetaminophen 650 mg 12/01/24 22:27 12/03/24 09:17 Acetaminophen 325 Mg Tablet PO 650 mg Q6H PRN Administration Mild Pain (1-3) or Fever Albuterol 2.5 mg 12/02/24 08:00 12/05/24 07:56 Albuterol Sulfate Neb 2.5 Mg/3 Ml Inh INHALATION 2.5 mg Q6HRT LUCY Administration Atorvastatin Calcium 40 mg 12/02/24 09:00 12/04/24 09:58 Atorvastatin 40 Mg Tablet PO 40 mg DAILY LUCY Administration Azithromycin 500 mg 12/05/24 09:00 Azithromycin 250 Mg Tablet PO 12/08/24 09:01 DAILY LUCY Clopidogrel Bisulfate 75 mg 12/02/24 09:00 12/04/24 09:58 Clopidogrel Bisulfate 75 Mg Tablet PO 75 mg DAILY LUCY Administration Dronabinol 2.5 mg 12/02/24 17:00 12/04/24 16:43 Dronabinol (*Crx) 2.5 Mg Capsule PO 2.5 mg BID LUCY Administration Enoxaparin Sodium 40 mg 12/05/24 09:00 Enoxaparin 40 Mg/0.4 Ml Syringe SUB-Q DAILY [facility] Escitalopram Oxalate 10 mg 12/02/24 21:00 12/04/24 21:03 Escitalopram Oxalate 10 Mg Tablet PO 10 mg HS [facility] Administration Fluticasone/Umeclidinium/Vilanterol 1 puff 12/02/24 08:00 12/05/24 07:57 Fluticasone/Umeclidin/Vilanter 100-62.5-25 Mcg Ellipta INHALATION 1 puff DAILYRT LUCY Administration Furosemide 40 mg 12/04/24 17:00 12/04/24 16:43 Furosemide Inj 40 Mg/4 Ml Vial IV PUSH 40 mg BID [facility] Administration Guaifenesin 600 mg 12/02/24 05:00 12/03/24 09:17 Guaifenesin 12 Hr 600 Mg Tabcr PO 600 mg Q12H PRN Administration congestion Ceftriaxone Sodium 2 gm in 100 mls @ 200 mls/hr 12/04/24 09:00 12/04/24 16:25 Rocephin 2 Gm/Ns 100 Ml IVPB Infused Q24H LUCY Infusion Melatonin 5 mg 12/02/24 21:00 12/04/24 21:03 Melatonin 5 Mg Tablet PO 5 mg QHS LUCY Administration Ondansetron HCl 4 mg 12/02/24 13:30 Ondansetron Hcl Odt 4 Mg Tablet PO Q6H PRN nausea and vomiting Pantoprazole Sodium 20 mg 12/02/24 05:00 12/03/24 09:18 Pantoprazole Sod Sesquihydrate 20 Mg Tab PO 20 mg QAM PRN Administration Indigestion Radiology Results: ITS Impressions Head CT 12/01/24 20:44 IMPRESSION: No acute intracranial process. Chest X-Ray 12/04/24 06:48 Impression: Worsening alveolar and interstitial pulmonary edema pattern. Correlate clinically for pneumonia. Underlying COPD or other chronic interstitial disease. Minimal left pleural effusion. Labs Labs: Laboratory Results - last 24 hr 12/04/24 12/04/24 12/04/24 09:23 11:50 18:46 WBC 12.9 H RBC 3.50 L Hgb 10.5 L Hct 33.7 L MCV 96.3 MCH 30.0 MCHC 31.2 L RDW 15.3 H Plt Count 187 MPV 9.7 Immature Gran % (Auto) 0.5 Neut % (Auto) 78.1 H Lymph % (Auto) 11.6 L Potter % (Auto) 8.6 H Eos % (Auto) 1.0 Baso % (Auto) 0.2 Lymph # (Auto) 1.49 Potter # (Auto) 1.1 H Eos # (Auto) 0.1 Baso # (Auto) 0.0 Abs Immat Gran (auto) 0.06 H Absolute Neuts (auto) 10.1 H Absolute Nucleated RBC 0.000 Nucleated RBC % 0.0 Puncture Site Right radial ABG pH 7.463 H ABG pCO2 33.2 L ABG pO2 108.0 H ABG PO2/FiO2 Ratio 2.16 ABG HCO3 23.2 ABG O2 Saturation 98.2 ABG O2 Content 16.4 ABG Base Excess 0.0 A-a Gradient 211.2 Oxyhemoglobin 97.7 Total Hemoglobin 11.8 L O2 Delivery Device Bipap O2 Liters/Min Not Reportable FiO2 50 Expiratory Pressure 8 Inspiratory Pressure 16 Sodium 136 L Potassium 3.7 Chloride 105 Carbon Dioxide 24 Anion Gap 7 BUN 14 Creatinine 0.80 Estim Creat Clear Calc 44 Estimated GFR > 60 Glucose 83 Calcium 7.8 L Phosphorus 1.7 L Magnesium 1.8 Total Bilirubin 0.6 AST 36 ALT 17 Alkaline Phosphatase 70 Total Protein 6.0 L Albumin 3.3 L Nasal MRSA (PCR) Not detected 12/05/24 04:19 WBC 12.1 H RBC 3.73 L Hgb 11.1 L Hct 36.2 L MCV 97.1 MCH 29.8 MCHC 30.7 L RDW 15.5 H Plt Count 180 MPV 10.4 Immature Gran % (Auto) 0.7 H Neut % (Auto) 80.0 H Lymph % (Auto) 9.8 L Potter % (Auto) 7.9 Eos % (Auto) 1.4 Baso % (Auto) 0.2 Lymph # (Auto) 1.19 Potter # (Auto) 1.0 H Eos # (Auto) 0.2 Baso # (Auto) 0.0 Abs Immat Gran (auto) 0.09 H Absolute Neuts (auto) 9.7 H Absolute Nucleated RBC 0.000 Nucleated RBC % 0.0 Puncture Site ABG pH ABG pCO2 ABG pO2 ABG PO2/FiO2 Ratio ABG HCO3 ABG O2 Saturation ABG O2 Content ABG Base Excess A-a Gradient Oxyhemoglobin Total Hemoglobin O2 Delivery Device O2 Liters/Min FiO2 Expiratory Pressure Inspiratory Pressure Sodium 136 L Potassium 3.7 Chloride 104 Carbon Dioxide 23 Anion Gap 9 BUN 13 Creatinine 0.80 Estim Creat Clear Calc 44 Estimated GFR > 60 Glucose 80 Calcium 7.7 L Phosphorus Magnesium Total Bilirubin 0.6 AST 28 ALT 19 Alkaline Phosphatase 79 Total Protein 6.2 L Albumin 3.5 Nasal MRSA (PCR)
[2024-12-05] MEDS: FUROSEMIDE INJ 40 MG/4 ML VIAL IV PUSH ×2 (09:25→17:18)
[2024-12-05] MEDS: droNABinol (*CRX) 2.5 MG CAPSULE PO ×2 (09:26→17:17)
[2024-12-05] MEDS: AZITHROMYCIN 250 MG TABLET 500 MG PO (09:26)
[2024-12-05] MEDS: ATORVASTATIN 40 MG TABLET PO (09:26)
[2024-12-05] MEDS: CLOPIDOGREL BISULFATE 75 MG TABLET PO (09:27)
[2024-12-05] MEDS: cefTRIAXone 2 GM/NS 100 ML 2 GM/100 ML BAG IVPB (09:28)
[2024-12-05] MEDS: POTASSIUM CHLORIDE 20 MEQ ER TABLET 40 MEQ PO (09:28)
[2024-12-05] MEDS: ENOXAPARIN 40 MG/0.4 ML SYRINGE SUB-Q (09:29)
[2024-12-05] MEDS: ACETAMINOPHEN 325 MG TABLET 650 MG PO (13:20)
[2024-12-05] MEDS: PANTOPRAZOLE SOD SESQUIHYDRATE 20 MG TAB PO (13:21)
[2024-12-05] MEDS: ACETYLCYSTEINE 20% INHAL SOLN 800 MG/4 ML VIAL 200 MG INHALATION ×2 (13:35→19:51)
[2024-12-05] MEDS: MELATONIN 5 MG TABLET PO (20:54)
[2024-12-05] MEDS: ESCITALOPRAM OXALATE 10 MG TABLET PO (20:54)
[2024-12-06] VITALS (18 sets, daily range): BP systolic 130–157; BP diastolic 44–74; PULSE 61–95; RESP 18–21; TEMP 36.2–36.9; O2SAT 91–97
[2024-12-06] MEDS: ALBUTEROL SULFATE NEB 2.5 MG/3 ML INH INHALATION ×4 (02:02→20:00)
[2024-12-06 04:36] LABS: Hematocrit 36.5 % (37.0-47.0); Hemoglobin 10.9 g/dL (12.0-15.0); Mean Corpuscular HGB Conc 29.9 g/dl (32-36); Mean Corpuscular Hemoglobin 30.1 pg (26-34); Mean Corpuscular Volume 100.8 fl (80-100); Platelet Count Result 195 k/mm3 (150-375); Red Blood Count 3.62 M/mm3 (4.2-5.4); White Blood Count 13.2 K/mm3 (4.5-10.0)
[2024-12-06 04:45] LABS: Anion Gap 12 mmol/L (4-12); Blood Urea Nitrogen 16 mg/dL (7-17); Calcium 7.8 mg/dL (8.4-10.2); Carbon Dioxide 19 mmol/L (22-30); Chloride 104 mmol/L (98-107); Estimated CRCL calculation 40 ml/min; Estimated Glomerular Filt Rate > 60; Glucose 80 mg/dL (65-110); Magnesium 2.0 mg/dL (1.6-2.3); Potassium 4.0 mmol/L (3.4-5.0); Sodium 135 mmol/L (137-145)
[2024-12-06] MEDS: ACETYLCYSTEINE 20% INHAL SOLN 800 MG/4 ML VIAL 200 MG INHALATION ×2 (07:31→14:23)
[2024-12-06] MEDS: FLUTICASONE/UMECLIDIN/VILANTER 100-62.5-25 MCG ELLIPTA 1 PUFF INHALATION (07:36)
--- NOTE | 2024-12-06 08:22 | P.PNIM_ITS ---
Progress Note: A&P Assessment and Plan (1) Acute respiratory failure: Code(s): J96.00 - Acute respiratory failure, unspecified whether with hypoxia or hypercapnia Status: Acute Assessment and Plan: 12/05 Seems to be responding to IV furosemide due to possible volume overload with diastolic dysfunction (EF 60-65%) Continue diuresis, monitor labs As procalcitonin was 0.5 12/02, 12/06 switch to PO antibiotics for possible recurrent post-obstructive pneumonia (2) Abnormal chest x-ray: Code(s): R93.89 - Abnormal findings on diagnostic imaging of other specified body structures Status: Acute Assessment and Plan: RLL lung mass, s/p RT, possible pulmonary edema, possible post-obstructive pneumonia (3) Right lower lobe lung mass: Code(s): R91.8 - Other nonspecific abnormal finding of lung field Status: Acute Assessment and Plan: - Chest x-ray shows stable right lower lobe masses and interstitial opacities in the peripheral in lower right lung - recently treated for PNA, received IV doxycycline and Rocephin but not febrile - patient has know leukocytosis. patient meet criteria for SIRS/Sepsis Azithromycin + Ceftriaxone started 12/04, switched to PO Augmentin 12/06 (4) Moderate malnutrition: Code(s): E44.0 - Moderate protein-calorie malnutrition Status: Acute Assessment and Plan: 12/05 Encouraged PO intake, continue Ensure, encouraged to have friends or family bring outside food (5) Acute kidney injury: Code(s): N17.9 - Acute kidney failure, unspecified Status: Acute Assessment and Plan: Resolved (6) Chronic obstructive pulmonary disease: Code(s): J44.9 - Chronic obstructive pulmonary disease, unspecified Status: Acute Assessment and Plan: - continues to cough - continue with current treatment regimen. - oxygen per nasal canula to keep sats above 90% - was on CPAP with FiO2 50% overnight 12/04-12/05, 12/05 on 3 LPM by ID with sats in 90s -12/06 on 3 LPM by ID and doing well (7) Hyperkalemia: Code(s): E87.5 - Hyperkalemia Status: Acute Assessment and Plan: Resolved (8) Hypertension: Code(s): I10 - Essential (primary) hypertension Status: Acute Assessment and Plan: BP controlled (9) Anxiety: Code(s): F41.9 - Anxiety disorder, unspecified Status: Acute Assessment and Plan: Continue medications (10) Depression: Code(s): F32.A - Depression, unspecified Status: Acute Assessment and Plan: Continue medications (11) Dyslipidemia: Code(s): E78.5 - Hyperlipidemia, unspecified Status: Acute Assessment and Plan: Continue medications Subjective Date/time seen: 12/06/24 08:22 Interval history: Tolerating diet but appetite not good. Does not like the food. Denied chest pain or shortness of breath at rest. Denied GI or issues. No nausea. Not using BiPAP. Review of Systems Review of Systems: All systems reviewed & are unremarkable except as noted in HPI and below Exam Narrative: HEENT: PERRL, sclerae nonicteric, pharyngeal mucosa pink and intact NECK: No JVD, adenopathy, or thyromegaly CHEST: Coarse breath sounds with expiratory rhonchi, normal effort HEART: NL S1/S2, regular, no murmur ABDOMEN: BS+, soft, nontender, no mass, no bruits EXTREMITIES: No cyanosis, edema, or clubbing NEUROLOGIC: CN intact and symmetric to inspection. MUSCULOSKELETAL: Tone and strength symmetric PSYCH: Alert. Oriented to person, place, and time Objective Data Vital Signs Vital Signs: Vital Signs - 24 hr 12/05/24 10:00 12/05/24 12:00 12/05/24 12:00 Temperature Pulse Rate 68 102 H Respiratory Rate Blood Pressure Pulse Oximetry 96 Oxygen Delivery Nasal Cannula Oxygen Flow Rate 3 Fraction of Inspired Oxygen 12/05/24 12:26 12/05/24 12:26 12/05/24 12:27 Temperature 98.0 F Pulse Rate 105 H Respiratory Rate 18 Blood Pressure 109/60 112/66 101/55 L Pulse Oximetry 96 Oxygen Delivery Oxygen Flow Rate Fraction of Inspired Oxygen 12/05/24 12:28 12/05/24 13:35 12/05/24 14:00 Temperature 98.0 F Pulse Rate 105 H 73 79 Respiratory Rate 18 18 Blood Pressure 109/60 Pulse Oximetry 96 Oxygen Delivery Oxygen Flow Rate Fraction of Inspired Oxygen 12/05/24 14:10 12/05/24 16:00 12/05/24 16:00 Temperature Pulse Rate 76 69 Respiratory Rate 18 Blood Pressure Pulse Oximetry 97 Oxygen Delivery Nasal Cannula Oxygen Flow Rate 3 Fraction of Inspired Oxygen 12/05/24 16:10 12/05/24 18:00 12/05/24 19:10 Temperature 97.9 F 97.8 F Pulse Rate 75 72 74 Respiratory Rate 18 18 Blood Pressure 129/44 L 123/51 L Pulse Oximetry 92 93 Oxygen Delivery Oxygen Flow Rate Fraction of Inspired Oxygen 12/05/24 19:52 12/05/24 20:00 12/05/24 20:00 Temperature 97.8 F Pulse Rate 71 66 66 Respiratory Rate 18 18 18 Blood Pressure 123/51 L Pulse Oximetry 93 93 Oxygen Delivery Nasal Cannula Oxygen Flow Rate 3 Fraction of Inspired Oxygen 50 12/05/24 20:00 12/05/24 20:08 12/05/24 20:09 Temperature Pulse Rate 66 78 Respiratory Rate 18 Blood Pressure Pulse Oximetry 93 Oxygen Delivery Nasal Cannula Oxygen Flow Rate 3 Fraction of Inspired Oxygen 12/05/24 21:38 12/06/24 00:00 12/06/24 00:00 Temperature Pulse Rate 76 65 65 Respiratory Rate 18 Blood Pressure Pulse Oximetry 93 Oxygen Delivery Nasal Cannula Oxygen Flow Rate 3 Fraction of Inspired Oxygen 50 12/06/24 00:00 12/06/24 02:00 12/06/24 02:00 Temperature 98.4 F Pulse Rate 66 76 64 Respiratory Rate 18 18 Blood Pressure 139/44 L Pulse Oximetry 91 Oxygen Delivery Oxygen Flow Rate Fraction of Inspired Oxygen 12/06/24 02:08 12/06/24 04:00 12/06/24 04:00 Temperature Pulse Rate 78 64 64 Respiratory Rate 18 18 Blood Pressure Pulse Oximetry 91 Oxygen Delivery Nasal Cannula Oxygen Flow Rate 3 Fraction of Inspired Oxygen 50 12/06/24 04:00 12/06/24 06:00 12/06/24 07:31 Temperature 98.1 F Pulse Rate 64 66 Respiratory Rate 18 Blood Pressure 157/44 H Pulse Oximetry 93 92 Oxygen Delivery Nasal Cannula Oxygen Flow Rate 3 Fraction of Inspired Oxygen 12/06/24 07:31 12/06/24 07:47 12/06/24 08:00 Temperature 98.3 F Pulse Rate 80 72 85 Respiratory Rate 18 18 21 H Blood Pressure 133/48 L Pulse Oximetry 97 Oxygen Delivery Oxygen Flow Rate Fraction of Inspired Oxygen Intake/Output Intake/Output: Intake & Output 12/03/24 12/04/24 12/05/24 12/06/24 23:59 23:59 23:59 23:59 Intake Total 1087 1760 1100 120 Output Total 325 2050 950 200 Balance 762 -290 150 -80 Meds/Results Medications: Active Medications Generic Name Dose Route Start Last Admin Trade Name Freq PRN Reason Stop Dose Admin Acetaminophen 650 mg 12/01/24 22:27 12/05/24 13:20 Acetaminophen 325 Mg Tablet PO 650 mg Q6H PRN Administration Mild Pain (1-3) or Fever Acetylcysteine 200 mg 12/05/24 16:00 12/06/24 07:31 Acetylcysteine 20% Inhal Soln 800 Mg/4 Ml Vial INHALATION 200 mg Q8HRT LUCY Administration Albuterol 2.5 mg 12/02/24 08:00 12/06/24 07:31 Albuterol Sulfate Neb 2.5 Mg/3 Ml Inh INHALATION 2.5 mg Q6HRT LUCY Administration Atorvastatin Calcium 40 mg 12/02/24 09:00 12/05/24 09:26 Atorvastatin 40 Mg Tablet PO 40 mg DAILY LUCY Administration Azithromycin 500 mg 12/05/24 09:00 12/05/24 09:26 Azithromycin 250 Mg Tablet PO 12/08/24 09:01 500 mg DAILY LUCY Administration Clopidogrel Bisulfate 75 mg 12/02/24 09:00 12/05/24 09:27 Clopidogrel Bisulfate 75 Mg Tablet PO 75 mg DAILY LUCY Administration Dronabinol 2.5 mg 12/02/24 17:00 12/05/24 17:17 Dronabinol (*Crx) 2.5 Mg Capsule PO 2.5 mg BID LUCY Administration Enoxaparin Sodium 40 mg 12/05/24 09:00 12/05/24 09:29 Enoxaparin 40 Mg/0.4 Ml Syringe SUB-Q 40 mg DAILY LUCY Administration Escitalopram Oxalate 10 mg 12/02/24 21:00 12/05/24 20:54 Escitalopram Oxalate 10 Mg Tablet PO 10 mg HS LUCY Administration Fluticasone/Umeclidinium/Vilanterol 1 puff 12/02/24 08:00 12/06/24 07:36 Fluticasone/Umeclidin/Vilanter 100-62.5-25 Mcg Ellipta INHALATION 1 puff DAILYRT LUCY Administration Furosemide 40 mg 12/04/24 17:00 12/05/24 17:18 Furosemide Inj 40 Mg/4 Ml Vial IV PUSH 40 mg BID LUCY Administration Guaifenesin 600 mg 12/02/24 05:00 12/03/24 09:17 Guaifenesin 12 Hr 600 Mg Tabcr PO 600 mg Q12H PRN Administration congestion Ceftriaxone Sodium 2 gm in 100 mls @ 200 mls/hr 12/04/24 09:00 12/05/24 09:58 Rocephin 2 Gm/Ns 100 Ml IVPB Infused Q24H LUCY Infusion Melatonin 5 mg 12/02/24 21:00 12/05/24 20:54 Melatonin 5 Mg Tablet PO 5 mg QHS LUCY Administration Ondansetron HCl 4 mg 12/02/24 13:30 Ondansetron Hcl Odt 4 Mg Tablet PO Q6H PRN nausea and vomiting Pantoprazole Sodium 20 mg 12/02/24 05:00 12/05/24 13:21 Pantoprazole Sod Sesquihydrate 20 Mg Tab PO 20 mg QAM PRN Administration Indigestion Radiology Results: ITS Impressions Head CT 12/01/24 20:44 IMPRESSION: No acute intracranial process. Chest X-Ray 12/04/24 06:48 Impression: Worsening alveolar and interstitial pulmonary edema pattern. Correlate clini zayra for pneumonia. Underlying COPD or other chronic interstitial disease. Minimal left pleural effusion. Labs Labs: Laboratory Results - last 24 hr 12/06/24 04:20 WBC 13.2 H RBC 3.62 L Hgb 10.9 L Hct 36.5 L MCV 100.8 H MCH 30.1 MCHC 29.9 L RDW 15.6 H Plt Count 195 MPV 10.2 Sodium 135 L Potassium 4.0 Chloride 104 Carbon Dioxide 19 L Anion Gap 12 BUN 16 Creatinine 0.89 Estim Creat Clear Calc 40 Estimated GFR > 60 Glucose 80 Calcium 7.8 L Magnesium 2.0
[2024-12-06] MEDS: droNABinol (*CRX) 2.5 MG CAPSULE PO ×2 (10:01→16:36)
[2024-12-06] MEDS: ATORVASTATIN 40 MG TABLET PO (10:02)
[2024-12-06] MEDS: CLOPIDOGREL BISULFATE 75 MG TABLET PO (10:02)
[2024-12-06] MEDS: FUROSEMIDE INJ 40 MG/4 ML VIAL IV PUSH ×2 (10:05→16:36)
[2024-12-06] MEDS: ENOXAPARIN 40 MG/0.4 ML SYRINGE SUB-Q (10:06)
[2024-12-06] MEDS: ESCITALOPRAM OXALATE 10 MG TABLET PO (21:31)
[2024-12-06] MEDS: MELATONIN 5 MG TABLET PO (21:32)
[2024-12-07] VITALS (13 sets, daily range): BP systolic 132–171; BP diastolic 52–65; PULSE 75–107; RESP 16–20; TEMP 36.2–36.6; O2SAT 94–100
--- NOTE | 2024-12-07 01:33 | PCRCNOTE ---
Patient refused 0200 treatment. Said she will call if a treatment was needed.
[2024-12-07 06:26] LABS: Hematocrit 40.0 % (37.0-47.0); Hemoglobin 12.3 g/dL (12.0-15.0); Mean Corpuscular HGB Conc 30.8 g/dl (32-36); Mean Corpuscular Hemoglobin 29.9 pg (26-34); Mean Corpuscular Volume 97.3 fl (80-100); Platelet Count Result 216 k/mm3 (150-375); Red Blood Count 4.11 M/mm3 (4.2-5.4); White Blood Count 15.3 K/mm3 (4.5-10.0)
[2024-12-07 06:57] LABS: Anion Gap 11 mmol/L (4-12); Blood Urea Nitrogen 18 mg/dL (7-17); Calcium 8.0 mg/dL (8.4-10.2); Carbon Dioxide 20 mmol/L (22-30); Chloride 104 mmol/L (98-107); Estimated CRCL calculation 35 ml/min; Estimated Glomerular Filt Rate 58; Glucose 91 mg/dL (65-110); Potassium 4.3 mmol/L (3.4-5.0); Sodium 135 mmol/L (137-145)
[2024-12-07] MEDS: ALBUTEROL SULFATE NEB 2.5 MG/3 ML INH INHALATION ×3 (08:09→20:52)
[2024-12-07] MEDS: ACETYLCYSTEINE 20% INHAL SOLN 800 MG/4 ML VIAL 200 MG INHALATION ×2 (08:09→14:51)
[2024-12-07] MEDS: CLOPIDOGREL BISULFATE 75 MG TABLET PO (09:44)
[2024-12-07] MEDS: FUROSEMIDE INJ 40 MG/4 ML VIAL IV PUSH (09:44)
[2024-12-07] MEDS: ATORVASTATIN 40 MG TABLET PO (09:44)
[2024-12-07] MEDS: ENOXAPARIN 40 MG/0.4 ML SYRINGE SUB-Q (09:46)
--- NOTE | 2024-12-07 10:18 | P.PNIM_ITS ---
Progress Note: A&P Assessment and Plan (1) Acute respiratory failure: Code(s): J96.00 - Acute respiratory failure, unspecified whether with hypoxia or hypercapnia Status: Acute Assessment and Plan: 12/05 Seems to be responding to IV furosemide due to possible volume overload with diastolic dysfunction (EF 60-65%) Continue diuresis, monitor labs As procalcitonin was 0.5 12/02, 12/06 switch to PO amoxiclav for possible recurrent post-obstructive pneumonia 12/07 Continue oxygen 3 LPM by NC and wean as tolerated (2) Abnormal chest x-ray: Code(s): R93.89 - Abnormal findings on diagnostic imaging of other specified body structures Status: Acute Assessment and Plan: RLL lung mass, s/p RT, possible pulmonary edema, possible post-obstructive pneumonia 12/07 switch to po furosemide 40 mg bid (home dose was 40 mg daily) (3) Dizziness: Code(s): R42 - Dizziness and giddiness Status: Acute Assessment and Plan: 12/07 Unable to complete orthostatic BP due to refusal to stand due to dizziness, but BP farheen from supine to sitting position 12/07 Dronabinol was begun since admission 11/2024 and commonly causes dizziness, so discontinued this, continue PT/OT and await placement in rehab (4) Right lower lobe lung mass: Code(s): R91.8 - Other nonspecific abnormal finding of lung field Status: Acute Assessment and Plan: - Chest x-ray shows stable right lower lobe masses and interstitial opacities in the peripheral in lower right lung - recently treated for PNA, received IV doxycycline and Rocephin but not febrile - patient has know leukocytosis. patient meet criteria for SIRS/Sepsis Azithromycin + Ceftriaxone started 12/04, switched to PO Augmentin 12/06 (5) Moderate malnutrition: Code(s): E44.0 - Moderate protein-calorie malnutrition Status: Acute Assessment and Plan: 12/05 Encouraged PO intake, continue Ensure, encouraged to have friends or family bring outside food (6) Acute kidney injury: Code(s): N17.9 - Acute kidney failure, unspecified Status: Acute Assessment and Plan: Resolved (7) Chronic obstructive pulmonary disease: Code(s): J44.9 - Chronic obstructive pulmonary disease, unspecified Status: Acute Assessment and Plan: - continues to cough - continue with current treatment regimen. - oxygen per nasal canula to keep sats above 90% - was on CPAP with FiO2 50% overnight 12/04-12/05, 12/05 on 3 LPM by NC with sats in 90s -12/06 on 3 LPM by NC and doing well (8) Hyperkalemia: Code(s): E87.5 - Hyperkalemia Status: Acute Assessment and Plan: Resolved (9) Hypertension: Code(s): I10 - Essential (primary) hypertension Status: Acute Assessment and Plan: BP controlled (10) Anxiety: Code(s): F41.9 - Anxiety disorder, unspecified Status: Acute Assessment and Plan: Continue medications (11) Depression: Code(s): F32.A - Depression, unspecified Status: Acute Assessment and Plan: Continue medications (12) Dyslipidemia: Code(s): E78.5 - Hyperlipidemia, unspecified Status: Acute Assessment and Plan: Continue medications (13) Protein calorie malnutrition: Code(s): E46 - Unspecified protein-calorie malnutrition Status: Acute Subjective Date/time seen: 12/07/24 10:18 Interval history: Unable to stand up due to dizziness. Describes the dizziness as lightheaded feeling. Not presyncopal. Not vertiginous. No sensation of spinning. No associated symptoms. This symptom is relatively new but unable to ascertain onset. She does not remember having it prior to being hospitalized last month. She does not notice the dizziness while lying in bed and turning left or right. Denied pain nausea vomiting focal weakness or numbness. Denied GI difficulties. Denied chest pain. Denied shortness of breath at rest. No use of BiPAP. Review of Systems Review of Systems: All systems reviewed & are unremarkable except as noted in HPI and below Exam Narrative: HEENT: PERRL, sclerae nonicteric, pharyngeal mucosa pink and intact NECK: No JVD, adenopathy, or thyromegaly CHEST: Coarse breath sounds with expiratory rhonchi, normal effort HEART: NL S1/S2, regular, no murmur ABDOMEN: BS+, soft, nontender, no mass, no bruits EXTREMITIES: No cyanosis, edema, or clubbing NEUROLOGIC: CN intact and symmetric to inspection, [id number] intact bilaterally MUSCULOSKELETAL: Tone and strength symmetric PSYCH: Alert. Oriented to person, place, and time Objective Data Vital Signs Vital Signs: Vital Signs - 24 hr 12/06/24 10:34 12/06/24 14:00 12/06/24 14:20 Temperature 98.5 F Pulse Rate 61 75 Respiratory Rate 20 20 Blood Pressure 144/61 H Pulse Oximetry 95 Oxygen Delivery Nasal Cannula Oxygen Flow Rate 3 12/06/24 14:30 12/06/24 20:00 12/06/24 20:00 Temperature Pulse Rate 78 78 Respiratory Rate 20 20 Blood Pressure 157/74 H Pulse Oximetry Oxygen Delivery Oxygen Flow Rate 12/06/24 20:10 12/06/24 20:38 12/06/24 21:31 Temperature Pulse Rate 78 Respiratory Rate 20 Blood Pressure Pulse Oximetry 95 95 Oxygen Delivery Nasal Cannula Nasal Cannula Oxygen Flow Rate 3 3 12/06/24 22:00 12/07/24 06:00 12/07/24 08:00 Temperature 97.2 F L 97.9 F Pulse Rate 95 91 Respiratory Rate 18 18 Blood Pressure 147/46 H 133/55 L 164/65 H Pulse Oximetry 95 94 Oxygen Delivery Oxygen Flow Rate 12/07/24 08:09 12/07/24 08:09 12/07/24 08:27 Temperature Pulse Rate 75 80 Respiratory Rate 20 20 Blood Pressure Pulse Oximetry 94 Oxygen Delivery Nasal Cannula Oxygen Flow Rate 3 12/07/24 09:57 Temperature Pulse Rate Respiratory Rate Blood Pressure 171/64 H Pulse Oximetry Oxygen Delivery Oxygen Flow Rate Intake/Output Intake/Output: Intake & Output 12/04/24 12/05/24 12/06/24 12/07/24 23:59 23:59 23:59 23:59 Intake Total 1760 1100 560 500 Output Total 2050 950 201 Balance -290 150 359 500 Meds/Results Medications: Active Medications Generic Name Dose Route Start Last Admin Trade Name Freq PRN Reason Stop Dose Admin Acetaminophen 650 mg 12/01/24 22:27 12/05/24 13:20 Acetaminophen 325 Mg Tablet PO 650 mg Q6H PRN Administration Mild Pain (1-3) or Fever Acetylcysteine 200 mg 12/07/24 08:00 12/07/24 08:09 Acetylcysteine 20% Inhal Soln 800 Mg/4 Ml Vial INHALATION 200 mg Q6HRT [facility] Administration Albuterol 2.5 mg 12/02/24 08:00 12/07/24 08:09 Albuterol Sulfate Neb 2.5 Mg/3 Ml Inh INHALATION 2.5 mg Q6HRT [facility] Administration Atorvastatin Calcium 40 mg 12/02/24 09:00 12/07/24 09:44 Atorvastatin 40 Mg Tablet PO 40 mg DAILY [facility] Administration Clopidogrel Bisulfate 75 mg 12/02/24 09:00 12/07/24 09:44 Clopidogrel Bisulfate 75 Mg Tablet PO 75 mg DAILY [facility] Administration Dronabinol 2.5 mg 12/07/24 11:30 Dronabinol (*Crx) 2.5 Mg Capsule PO BID@1130,1630 [facility] Enoxaparin Sodium 40 mg 12/05/24 09:00 12/07/24 09:46 Enoxaparin 40 Mg/0.4 Ml Syringe SUB-Q 40 mg DAILY [facility] Administration Escitalopram Oxalate 10 mg 12/02/24 21:00 12/06/24 21:31 Escitalopram Oxalate 10 Mg Tablet PO 10 mg HS [facility] Administration Fluticasone/Umeclidinium/Vilanterol 1 puff 12/02/24 08:00 12/06/24 07:36 Fluticasone/Umeclidin/Vilanter 100-62.5-25 Mcg Ellipta INHALATION 1 puff DAILYRT [facility] Administration Furosemide 40 mg 12/04/24 17:00 12/07/24 09:44 Furosemide Inj 40 Mg/4 Ml Vial IV PUSH 40 mg BID [facility] Administration Guaifenesin 600 mg 12/02/24 05:00 12/03/24 09:17 Guaifenesin 12 Hr 600 Mg Tabcr PO 600 mg Q12H PRN Administration congestion Levofloxacin 500 mg 12/06/24 09:00 12/07/24 09:44 Levofloxacin 500 Mg Tablet PO 500 mg DAILY [facility] Administration Melatonin 5 mg 12/02/24 21:00 12/06/24 21:32 Melatonin 5 Mg Tablet PO 5 mg QHS [facility] Administration Ondansetron HCl 4 mg 12/02/24 13:30 Ondansetron Hcl Odt 4 Mg Tablet PO Q6H PRN nausea and vomiting Pantoprazole Sodium 20 mg 12/02/24 05:00 12/05/24 13:21 Pantoprazole Sod Sesquihydrate 20 Mg Tab PO 20 mg QAM PRN Administration Indigestion Radiology Results: ITS Impressions Head CT 12/01/24 20:44 IMPRESSION: No acute intracranial process. Chest X-Ray 12/04/24 06:48 Impression: Worsening alveolar and interstitial pulmonary edema pattern. Correlate clinically for pneumonia. Underlying COPD or other chronic interstitial disease. Minimal left pleural effusion. Labs Labs: Laboratory Results - last 24 hr 12/07/24 06:15 WBC 15.3 H RBC 4.11 L Hgb 12.3 Hct 40.0 MCV 97.3 MCH 29.9 MCHC 30.8 L RDW 15.5 H Plt Count 216 MPV 10.0 Sodium 135 L Potassium 4.3 Chloride 104 Carbon Dioxide 20 L Anion Gap 11 BUN 18 H Creatinine 0.94 Estim Creat Clear Calc 35 Estimated GFR 58 L Glucose 91 Calcium 8.0 L
[2024-12-07] MEDS: ONDANSETRON HCL ODT 4 MG TABLET PO ×2 (12:21→17:12)
[2024-12-07] MEDS: PANTOPRAZOLE SOD SESQUIHYDRATE 20 MG TAB PO (12:22)
[2024-12-07] MEDS: FLUTICASONE/UMECLIDIN/VILANTER 100-62.5-25 MCG ELLIPTA 1 PUFF INHALATION (15:00)
[2024-12-07] MEDS: FUROSEMIDE 40 MG TABLET PO (17:11)
[2024-12-07] MEDS: ESCITALOPRAM OXALATE 10 MG TABLET PO (21:10)
[2024-12-07] MEDS: ACETAMINOPHEN 325 MG TABLET 650 MG PO (21:10)
[2024-12-07] MEDS: MELATONIN 5 MG TABLET PO (21:10)
[2024-12-08] VITALS (13 sets, daily range): BP systolic 121–147; BP diastolic 47–55; PULSE 75–101; RESP 18–20; TEMP 36.6–37; O2SAT 92–99
[2024-12-08] MEDS: ALBUTEROL SULFATE NEB 2.5 MG/3 ML INH INHALATION ×4 (02:41→20:51)
[2024-12-08 06:02] LABS: Hematocrit 38.4 % (37.0-47.0); Hemoglobin 12.1 g/dL (12.0-15.0); Mean Corpuscular HGB Conc 31.5 g/dl (32-36); Mean Corpuscular Hemoglobin 30.3 pg (26-34); Mean Corpuscular Volume 96.0 fl (80-100); Platelet Count Result 228 k/mm3 (150-375); Red Blood Count 4.00 M/mm3 (4.2-5.4); White Blood Count 16.3 K/mm3 (4.5-10.0)
[2024-12-08 06:15] LABS: Anion Gap 12 mmol/L (4-12); Blood Urea Nitrogen 26 mg/dL (7-17); Calcium 8.2 mg/dL (8.4-10.2); Carbon Dioxide 24 mmol/L (22-30); Chloride 100 mmol/L (98-107); Estimated CRCL calculation 24 ml/min; Estimated Glomerular Filt Rate 39; Glucose 110 mg/dL (65-110); Potassium 4.2 mmol/L (3.4-5.0); Sodium 136 mmol/L (137-145)
[2024-12-08] MEDS: FLUTICASONE/UMECLIDIN/VILANTER 100-62.5-25 MCG ELLIPTA 1 PUFF INHALATION (08:25)
[2024-12-08] MEDS: ACETYLCYSTEINE 20% INHAL SOLN 800 MG/4 ML VIAL 200 MG INHALATION ×3 (08:26→20:51)
[2024-12-08] MEDS: FUROSEMIDE 40 MG TABLET PO ×2 (08:39→16:54)
[2024-12-08] MEDS: CLOPIDOGREL BISULFATE 75 MG TABLET PO (08:39)
[2024-12-08] MEDS: ATORVASTATIN 40 MG TABLET PO (08:39)
--- NOTE | 2024-12-08 09:45 | P.PNIM_ITS ---
Progress Note: A&P Assessment and Plan (1) Acute respiratory failure: Code(s): J96.00 - Acute respiratory failure, unspecified whether with hypoxia or hypercapnia Status: Acute Assessment and Plan: 12/05 Seems to be responding to IV furosemide due to possible volume overload with diastolic dysfunction (EF 60-65%) Continue diuresis, monitor labs As procalcitonin was 0.5 12/02, 12/06 switch to PO amoxiclav for possible recurrent post-obstructive pneumonia 12/07 Continue oxygen 3 LPM by NC and wean as tolerated (2) Abnormal chest x-ray: Code(s): R93.89 - Abnormal findings on diagnostic imaging of other specified body structures Status: Acute Assessment and Plan: RLL lung mass, s/p RT, possible pulmonary edema, possible post-obstructive pneumonia 12/07 switch to po furosemide 40 mg bid (home dose was 40 mg daily) (3) Dizziness: Code(s): R42 - Dizziness and giddiness Status: Acute Assessment and Plan: 12/07 Unable to complete orthostatic BP due to refusal to stand due to dizziness, but BP farheen from supine to sitting position 12/07 Dronabinol was begun since admission 11/2024 and commonly causes dizziness, so discontinued this, continue PT/OT and await placement in rehab (4) Right lower lobe lung mass: Code(s): R91.8 - Other nonspecific abnormal finding of lung field Status: Acute Assessment and Plan: Chest x-ray shows stable right lower lobe masses and interstitial opacities in the peripheral in lower right lung - recently treated for PNA, received IV doxycycline and Rocephin but not febrile - patient has know leukocytosis. patient meet criteria for SIRS/Sepsis Azithromycin + Ceftriaxone started 12/04, switched to PO Augmentin 12/06 (5) Moderate malnutrition: Code(s): E44.0 - Moderate protein-calorie malnutrition Status: Acute Assessment and Plan: 12/05 Encouraged PO intake, continue Ensure, encouraged to have friends or family bring outside food (6) Acute kidney injury: Code(s): N17.9 - Acute kidney failure, unspecified Status: Acute Assessment and Plan: Resolved (7) Chronic obstructive pulmonary disease: Code(s): J44.9 - Chronic obstructive pulmonary disease, unspecified Status: Acute Assessment and Plan: - continues to cough - continue with current treatment regimen. - oxygen per nasal canula to keep sats above 90% - was on CPAP with FiO2 50% overnight 12/04-12/05, 12/05 on 3 LPM by NC with sats in 90s -12/06 on 3 LPM by NC and doing well (8) Hyperkalemia: Code(s): E87.5 - Hyperkalemia Status: Acute Assessment and Plan: Resolved (9) Hypertension: Code(s): I10 - Essential (primary) hypertension Status: Acute Assessment and Plan: BP controlled (10) Anxiety: Code(s): F41.9 - Anxiety disorder, unspecified Status: Acute Assessment and Plan: Continue medications (11) Depression: Code(s): F32.A - Depression, unspecified Status: Acute Assessment and Plan: Continue medications (12) Dyslipidemia: Code(s): E78.5 - Hyperlipidemia, unspecified Status: Acute Assessment and Plan: Continue medications (13) Protein calorie malnutrition: Code(s): E46 - Unspecified protein-calorie malnutrition Status: Acute Time Spent With Patient Time: 59 minutes Subjective Date/time seen: 12/08/24 09:45 Interval history: Reports continued dizziness when standing. Nausea most of the time. Goals of care primarily palliative. No CPR or intubation. Would be agreeable to a biopsy but would not want surgery. Would not want to have chemotherapy or radiation. Is interested in treatments that can improve her quality of life. Hasn't considered if she would want hospice if her respiratory status worsened. Will discuss with Dr Palomo On 3L O2 Review of Systems Review of Systems: 12 systems were reviewed and are negativ e except for as per HPI. All systems reviewed & are unremarkable except as noted in HPI and below Constitutional: Constitutional: Reports as per HPI and Reports no additional constitutional complaints Exam Narrative: HEENT: PERRL, sclerae nonicteric, pharyngeal mucosa pink and intact NECK: No JVD, adenopathy, or thyromegaly CHEST: Coarse breath sounds with expiratory rhonchi, normal effort HEART: NL S1/S2, regular, no murmur ABDOMEN: BS+, soft, nontender, no mass, no bruits EXTREMITIES: No cyanosis, edema, or clubbing NEUROLOGIC: CN intact and symmetric to inspection, [id number] intact bilaterally MUSCULOSKELETAL: Tone and strength symmetric PSYCH: Alert. Oriented to person, place, and time Objective Data Vital Signs Vital Signs: Vital Signs - 24 hr 12/07/24 09:57 12/07/24 14:00 12/07/24 14:51 Temperature 97.1 F L Pulse Rate 107 H 92 Respiratory Rate 18 20 Blood Pressure 171/64 H 132/52 L Pulse Oximetry 100 Oxygen Delivery Oxygen Flow Rate 12/07/24 15:04 12/07/24 20:00 12/07/24 20:53 Temperature Pulse Rate 99 104 H 80 Respiratory Rate 20 20 Blood Pressure 148/62 H Pulse Oximetry Oxygen Delivery Oxygen Flow Rate 12/07/24 21:02 12/07/24 21:10 12/07/24 22:00 Temperature 97.7 F Pulse Rate 88 98 Respiratory Rate 20 16 Blood Pressure 140/57 L Pulse Oximetry 96 94 Oxygen Delivery Nasal Cannula Oxygen Flow Rate 3 12/08/24 06:00 12/08/24 08:28 12/08/24 08:35 Temperature 97.9 F Pulse Rate 83 75 Respiratory Rate 20 18 Blood Pressure 147/47 H Pulse Oximetry 92 93 Oxygen Delivery Nasal Cannula Oxygen Flow Rate 3 12/08/24 08:44 Temperature Pulse Rate 80 Respiratory Rate 18 Blood Pressure Pulse Oximetry Oxygen Delivery Oxygen Flow Rate Intake/Output Intake/Output: Intake & Output 12/05/24 12/06/24 12/07/24 12/08/24 23:59 23:59 23:59 23:59 Intake Total 1100 560 920 0 Output Total 950 201 Balance 150 359 920 0 Meds/Results Medications: Active Medications Generic Name Dose Route Start Last Admin Trade Name Freq PRN Reason Stop Dose Admin Acetaminophen 650 mg 12/01/24 22:27 12/07/24 21:10 Acetaminophen 325 Mg Tablet PO 650 mg Q6H PRN Administration Mild Pain (1-3) or Fever Acetylcysteine 200 mg 12/07/24 08:00 12/08/24 08:26 Acetylcysteine 20% Inhal Soln 800 Mg/4 Ml Vial INHALATION 200 mg Q6HRT [facility] Administration Albuterol 2.5 mg 12/02/24 08:00 12/08/24 08:25 Albuterol Sulfate Neb 2.5 Mg/3 Ml Inh INHALATION 2.5 mg Q6HRT [facility] Administration Atorvastatin Calcium 40 mg 12/02/24 09:00 12/08/24 08:39 Atorvastatin 40 Mg Tablet PO 40 mg DAILY [facility] Administration Clopidogrel Bisulfate 75 mg 12/02/24 09:00 12/08/24 08:39 Clopidogrel Bisulfate 75 Mg Tablet PO 75 mg DAILY [facility] Administration Enoxaparin Sodium 30 mg 12/09/24 09:00 Enoxaparin 30 Mg/0.3 Ml Syringe SUB-Q DAILY [facility] Escitalopram Oxalate 10 mg 12/02/24 21:00 12/07/24 21:10 Escitalopram Oxalate 10 Mg Tablet PO 10 mg HS [facility] Administration Fluticasone/Umeclidinium/Vilanterol 1 puff 12/02/24 08:00 12/08/24 08:25 Fluticasone/Umeclidin/Vilanter 100-62.5-25 Mcg Ellipta INHALATION 1 puff DAILYRT [facility] Administration Furosemide 40 mg 12/07/24 17:00 12/08/24 08:39 Furosemide 40 Mg Tablet PO 40 mg BID [facility] Administration Guaifenesin 600 mg 12/02/24 05:00 12/03/24 09:17 Guaifenesin 12 Hr 600 Mg Tabcr PO 600 mg Q12H PRN Administration congestion Levofloxacin 500 mg 12/06/24 09:00 12/08/24 08:39 Levofloxacin 500 Mg Tablet PO 500 mg DAILY [facility] Administration Melatonin 5 mg 12/02/24 21:00 12/07/24 21:10 Melatonin 5 Mg Tablet PO 5 mg QHS [facility] Administration Ondansetron HCl 4 mg 12/02/24 13:30 12/07/24 17:12 Ondansetron Hcl Odt 4 Mg Tablet PO 4 mg Q6H PRN Administration nausea and vomiting Pantoprazole Sodium 20 mg 12/02/24 05:00 12/07/24 12:22 Pantoprazole Sod Sesquihydrate 20 Mg Tab PO 20 mg QAM PRN Administration Indigestion Radiology Results: ITS Impressions Head CT 12/01/24 20:44 IMPRESSION: No acute intracranial process. Chest X-Ray 12/04/24 06:48 Impression: Worsening alveolar and interstitial pulmonary edema pattern. Correlate clinically for pneumonia. Underlying COPD or other chronic interstitial disease. Minimal left pleural effusion. Labs Labs: Laboratory Results - last 24 hr 12/08/24 05:51 WBC 16.3 H RBC 4.00 L Hgb 12.1 Hct 38.4 MCV 96.0 MCH 30.3 MCHC 31.5 L RDW 15.5 H Plt Count 228 MPV 9.8 Sodium 136 L Potassium 4.2 Chloride 100 Carbon Dioxide 24 Anion Gap 12 BUN 26 H Creatinine 1.34 H Estim Creat Clear Calc 24 Estimated GFR 39 L Glucose 110 Calcium 8.2 L Quality VTE Prophylaxis VTE prophylaxis: mechanical ordered Hospitalist MIPS Advance Care Plan I have confirmed that the patient's Advanced Care Plan is present, code status is documented, or surrogate decision maker is listed in patient medical record.: Yes Medication Reconciliation I have utilized all available resources to obtain, update and review the patients current medications (includes all prescriptions, OTC, herbals, cannabis, and nutritional supplements).: Yes
--- NOTE | 2024-12-08 11:02 | P.PNPL_ITS ---
Progress Note: A&P Assessment and Plan (1) Postobstructive pneumonia: Code(s): J18.9 - Pneumonia, unspecified organism Status: Acute Assessment and Plan: 12/04/24: She has persistent post obstructive pneumonia with 2 masses in the R lung, one in the superior segment of the RLL and another in the base of the RLL abutting the chest wall. These appear to be growing. Her last chest CT was 11/13/2024. This mass has increased since Feb 2024, now is 4.1 x 2.9 cm, and she is having progressive symptoms. She is on broad spectrum antibiotics, needs to have a biopsy of the RLL mass to confirm as her biopsy in 2022 had only scant cells. plan: I will ask RT to provide a Cornet valve, a PEP valve to help clear her secretions. She has a productive cough with copious clear secretions and difficulty expectorating these. She says that she had a Cornet valve when she was in rehab but somehow this was lost. I will also request vibratory vest to help clear her secretions and Mucomyst t.i.d. for pulmonary hygiene. She likely has an enlarging right lower lobe mass with persistent postobstructive pneumonia. She asked if she has pneumonia, and I told her that yes, I think she does, but not the usual pneumonia that we think of when we talk about pneumonia. She has enlarging right lower lobe mass which is over 4 cm and she has a PET scan from prior July which shows increasing mediastinal lymphadenopathy. She is on oxygen at rest and therefore is not a candidate for a CT-guided biopsy of her mass here. Our pulmonary department does not have endobronchial ultrasound. EBUS could be used to biopsy her mediastinal LAD. Two admissions ago, she did not want to be transferred. She may change her mind since she has been in the hosital or rehab since November 11. Oxygen as required to maintain sat 90-94%. Continue Trelegy 100 as her controller baseline therapy, and p.r.n. albuterol nebulized. Continue antibiotics, ok for Rocephin IV and oral azithromycin. All micro studies were negative last admission. I will check a CRP. 12/08/24: patient remains very weak, she has been in bed, when I asked her to set up she barely moves her arms to try to hold on to the rales and cannot pull herself up. Overall she feels tired but status that her breathing is normal. She has minimal phlegm which is normal for her and no hemoptysis. Currently she is on 3 L nasal cannula saturations 94%. She is afebrile. White blood cell count 16.3, creatinine 1.34. Plan: Patient continues to improve and is at her baseline. patient has received antibiotics since 12/01/2024. Continue Levaquin 500 q.day, today is day 8 of 10 of antibiotics. from a pulmonary perspective patient is ready to be discharged to rehabilitation on these pulmonary medicines: Levofloxacin 500 mg p.o. q.day last dose on 12/10/2024 trelegy 100-62.5-25 at 1 puff q.day Rescue albuterol 2 puffs q.4 hours p.r.n. Rescue albuterol nebulizer 2.5 mg q.4 hours p.r.n. shortness of breath or wheezing guaifenesin 600 mg p.o. q.12 hours p.r.n. congestion Cornet flutter valve q.2 hours while awake oxygen at rest, with activity and with sleep per facilities protocol. Currently she is on 3 L nasal cannula saturations 94%. Oxygen at night as guided by overnight oximetry on 12/08/2024 on 4 L nasal cannula. follow-up in the Pulmonary Clinic on 12/16/2024 at 2:15 p.m. Discussed with Yelitza Finney, will follow with you. (2) Malignant neoplasm of lower lobe, right bronchus or lung: Code(s): C34.31 - Malignant neoplasm of lower lobe, right bronchus or lung Status: Acute Assessment and Plan: She had a CT guided biopsy of the mass in the RLL mass in 07/21/2022, scant atypical cells recovered, morphologically compatible with carcinoma but is also morphologically compatible with reactive tissue. Completed SBRT 10/09/2022. CT scan 10/20/2024 showed a 2.1 cm right lower lobe nodule consolidation possibility of neoplasm, now 4.1 x 2.9 cm. Admission before last, this area was considered for a repeat CT-guided biopsy of the mass however as she is on supplemental O2, this excludes her from having a CT guided biopsy here. She is at high risk for complications, and 10 years ago, she reports having a collapsed lung. She has persistent post obstructive pneumonia with 2 masses in the R lung, one in the superior segment of the RLL and another in the base of the RLL abutting the chest wall. These appear to be growing. Her last chest CT was 11/13/2024. This mass has increased since Feb 2024, now is 4.1 x 2.9 cm, and she is having progressive symptoms. 12/08/24: The patient tells me her oncologist wanted her to recover and be discharged from rehab and see him as an outpatient prior to any additional workup. Currently the patient is debilitated on 3 L nasal cannula oxygen and will not be able to have a CT-guided biopsy at [facility] because she is on oxygen. Plan: Discussed with hospitalist. Hospitalist will reach out to Oncology to determine if there is a need for inpatient transfer to a facility that can do a CT-guided biopsy on a patient with oxygen or if a bronchoscopy with EBUS should be performed to assess her mass and right hilar and mediastinal lymphadenopathy. (3) Chronic obstructive pulmonary disease: Code(s): J44.9 - Chronic obstructive pulmonary disease, unspecified Status: Acute Assessment and Plan: Regarding her COPD, 118 hundred eighteen pack year tobacco use currently smoking 2 packs per day. She was diagnosed approximately 10 years ago. alpha 1 anti trypsin genotype CS with nnormal level of 187 on 11/15/2024. She does not remember having PFTs. I have no PFTs. For CT in our system from 06/11/[address] scan from 11/13/2024 demonstrates severe panlobular emphysema all lung hall. Patient tells me 10 years ago she had a collapsed lung requiring a chest tube and hospitalization and recovered. One year ago she could walk 2 blocks. Three months ago which is the last time she felt normal she could walk 1 block and was limited by leg pain. Patient had a fall and was admitted to [facility] approximately 6 months ago and at that time she was prescribed oxygen. The oxygen was delivered to her house but she did not know how to use it and returned it. At home she measures her pulse oximetry sitting on room air and this ranges from 81 to 91%. 11/13/2024: ABG on 2 L 7.46/34/70. started on trelegy 200 a few weeks ago and says that this does help her. 11/19/2024: Overnight oximetry on 3 L: Recording duration 7 hours and 46 minutes. Average saturation 90%. Low saturation 74%. Time with saturation less than or equal to 88% was on 144 minutes, oxygen desaturation index 1.3. 12/08/24: currently no evidence of COPD exacerbation. Plan: Continued trelegy 100. continue albuterol nebulizer q.6 hours, Mucomyst nebulizer twice a day, Cornet flutter valve to aid in expectoration. I will add guaifenesin 1200 mg p.o. b.i.d. If she remains in the hospital tonight, I will perform overnight oximetry tonight on 4 L. goal saturation 90-94% during the day. Subjective Date/time seen: 12/08/24 11:02 Interval history: 12/05/24 at 12:35 p.m. Room 202 bed 1. NEW: Dawn Bocanegra is a 73-year-old woman with chronic respiratory failure on oxygen, COPD, tobacco abuse with smoking up until her November 11 admission, lung cancer in the RLL s/p SBRT completed 10/09/22. Her recent admission was from home, November 11- for postobstructive pneumonia in the right lower lobe. She has panlobular emphysema with 118 pack year history of tobacco abuse. She went to rehab from November 21 through , was readmitted to the hospital side without going home, had weakness, coughing, clear sputum, and an increase in her O2 need. She is wearing O2 now, but tells me that it is new. It is not new, she has been prescribed O2 for a while. White blood cell count was elevated 16.3, has been decreasing since admission. Arterial blood gas December 04 showed a pH of 7.18 he had, pCO2 49.9 PO2 51.6 bicarbonate 18.3 saturation 77.4%. This was on 15 L non-rebreather mask. She was placed on BiPAP 17/01 with oxygen 50% with normalization of the gas, pH 7.46 pCO2 33.2, PO2 0 8, HC03 23.2 saturation 98.2%. She admitted 12/01 with weakness, was on 2 L/min. CXR 12/04 shows worsening interstitial infiltrates on CXR and O2 need has increased. She has been treated with IV Rocephin and oral azithromycin. Last admission, she was negative in influenza A/B, RSV and SARS-CoV-2, mycoplasma titers were normal, urine antigen for strep pneumonia Legionella were negative. MRSA nasal swab was negative. Extended respiratory pathogen panel was negative. She was loaded up on antibiotics, azithromycin, meropenem and vancomycin, changed to cefepime, Flagyl and doxycycline when she was admitted to the floor. Dr. Bañuelos saw her on November 14 post obstructive pneumonia, COPD, see note below. She was prescribed O2 prior to the last admission, she told the [facility] that she did not want it, and this was returned to the [facility]. She worsening respiratory status, was readmitted to the hospital on 12/01/2024. She says she has a cough with clear sputum production. She is on IV Rocephin and oral azithromycin, Trelegy 100 puff a day and p.r.n. albuterol 2.5 mg nebulized bronchodilator q.6 hours. PMH: hypertension, hyperlipidemia, GERD, subclavian artery stenosis status post stent, renal artery stenosis, peripheral artery disease status post right carotid endarterectomy 1995, left carotid endarterectomy, COPD, radiographic lung cancer status post XRT. Dr. Palomo treats her for lung cancer, completed SBRT 10/09/2022. She had a PET/CT scan 07/10/2024 showing Airspace opacities with increased activity in the lower lobes, right worse than left, consistent with radiation pneumonitis; Severe emphysema. Increased activity in normal-sized and borderline-enlarged right hilar and mediastinal lymph nodes, which may be reactive or metastatic disease. 12/08/24: patient remains very weak, she has been in bed, when I asked her to set up she barely moves her arms to try to hold on to the rales and cannot pull herself up. Overall she feels tired but status that her breathing is normal. She has minimal phlegm which is normal for her and no hemoptysis. Currently she is on 3 L nasal cannula saturations 94%. She is afebrile. White blood cell count 16.3, creatinine 1.34. DATA * 12/04/2024; CXR Comparison: 12/01/2024 Clinical History: Hypoxia Findings: There is worsening hazy and interstitial pulmonary disease bilaterally, compatible worsening pulmonary edema. Probable underlying COPD or other chronic interstitial disease. Possible minimal left pleural effusion. Cardiomediastinal silhouette is stable. Bones and soft tissues are unremarkable. Impression: Worsening alveolar and interstitial pulmonary edema pattern. Correlate clinically for pneumonia. Underlying COPD or other chronic interstitial disease. Minimal left pleural effusion. * 07/10/2024; PET ; IMPRESSION: 1. Airspace opacities with increased activity in the lower lobes, right worse than left, consistent with radiation pneumonitis. 2. Severe emphysema. 3. Increased activity in normal-sized and borderline-enlarged right hilar and mediastinal lymph nodes, which may be reactive or metastatic disease. * 02/22/[address] 15 mm nodule RLL * 10/20/[address]; 2.1 cm irregular nodular consolidation the suprasellar right lower lobe posteriorly. This could reflect neoplasm, rounded atelectasis, less likely pneumonia. Correlate clinically.More extensive irregular area of consolidation the more inferior posterior right lower lobe, measuring up to 3.9 cm in extent. Again, diagnostic constrictions include pneumonia, rounded atelectasis, or neoplasm. * 11/13/[address] ; Mass measuring 4.1 x 2.9 cm in the right lower lobe. Further evaluation advised. Smaller nodule is seen adjacent to this mass in the right lower lobe area. This is the start of her history from 11/14/2024 with a new pulmonary consult for lung biopsy, Dr Bañuelos. . 73-year-old with a history of hypertension, hyperlipidemia, GERD, Subclavian artery stenosis status post stent, renal artery stenosis, Peripheral artery disease status post right carotid endarterectomy 1995, left carotid endarterectomy .COPD, radiographic lung cancer status post XRT. Regarding her COPD she was diagnosed approximately 10 years ago. She does not remember having PFTs. patient tells me 10 years ago she had a collapsed lung requiring a chest tube and hospitalization and recovered.One year ago she could walk 2 blocks. Three months ago which is the last time she felt normal she could walk 1 block and was limited by leg pain. Patient had a fall and was admitted to [facility] approximately 6 months ago and at that time she was prescribed oxygen. The oxygen was delivered to her house but she did not know how to use it and returned it. At home she measures her pulse oximetry sitting on room air and this ranges from 81 to 90 1%. Patient smoked tobacco from age 14 to current at 2 packs per day for 118 pack years, patient was exposed to secondhand smoke from both of her parents. 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 Patient is followed by Oncology, Dr. Palomo, last note I have is from 10/24/2024. Patient had a CT-guided biopsy of a right lung mass on 07/21/2022 with scant atypical cells. In the comment it says morphologically compatible with carcinoma but is also morphologically compatible with reactive tissue. Completed SBRT 10/09/2022. CT scan 10/20/2024 showed a 2.1 cm right lower lobe nodule consolidation possibility of neoplasm. The mass has increased in size from the previous CT when it was 1.[address]-guided biopsy of the mass ordered and based on the pathology we will decide about PET scan. 11/05/2024: PCP office visit note for 1 week of cough and congestion. Room air saturations were listed as 75%. She had rhonchi and wheezes and was prescribed a Z-Gray and steroids. Patient took these medicines but felt no improvement. 11/12/2024: Patient presented to the hospital for outpatient CT-guided lung biopsy with low saturations and was sent to the emergency room. She had a white count of 13.4, creatinine 0.85, BNP 1720 and required 2 L nasal cannula for saturation 93%. Patient left AMA. 11/13/2024: Patient returned to the emergency room with worsening shortness of breath, cough and congestion. Room air saturations were 81%. She had rales and rhonchi. White blood cell count 14.5, eosinophils 0.7%. Creatinine 0.89. CRP 15.1. COVID, influenza and RSV RT PCR assay negative. MRSA nasal swab negative. ABG on 2 L 7.46/34/70. Patient was initiated on azithromycin, meropenem and vancomycin. This was changed to vancomycin, cefepime, Flagyl and doxycycline when she was admitted to the floor. 11/13/2024: Patient tells me she feels the same as she did yesterday. She has shortness of breath at rest and with activity and has not been out of bed. She had previously been on 3 L nasal cannula but the nurse told me her saturations went to 77% about 3 minutes before I entered. She was placed on 5 L and her saturations were 91%. She complains of being tired, no chest pain no hemoptysis. she says the phlegm is increased over the last 3 months and sometimes he gets stuck in her throat. DATA 11/13/2024: CTA chest PE protocol History: 73 years Female with . shortness of breath . Comparison: October 20, 2024 Findings: PULMONARY ARTERIES: No pulmonary embolus. VISUALIZED THORACIC INLET: Normal. MEDIASTINUM: Aorta/coronary arteries: Mild atheromatous disease. Heart/other: The heart is not enlarged. Lymph nodes: Prevascular lymphadenopathy is seen with the largest measures 1.6 cm. Bilateral hilar lymphadenopathy more in the right side. Subcarinal calcified lymph notes. Calcified lymph node in the left hilum. LUNGS: Emphysematous changes of the lungs. A mass is seen in the right lower lobe measuring 4.1 x 2.9 cm. Further evaluation advised. Smaller nodule is seen medially in the right lower lobe measuring 1.4 cm. Minimal interstitial opacification is seen in the right middle lobe and right upper lobe. Interstitial opacification also seen around the mass in the right lower lobe. Minimal interstitial opacification the left lung base. Right pleural effusion. No pulmonary nodules . No pneumothorax. VISUALIZED UPPER ABDOMEN: Proximal abdominal aorta measures 3 cm. Stent is seen in the left renal artery. Status post cholecystectomy. Slightly prominent pancreatic duct. Prominent CBD measuring 1.1 cm.. Otherwise, the visualized upper abdomen is normal. MUSCULOSKELETAL: Soft tissues: The superficial soft tissues are normal. Bones: Age appropriate degenerative changes of the spine. Increased kyphosis. Osteopenia of the bones. IMPRESSION: 1. No pulmonary embolism. 2. Mass measuring 4.1 x 2.9 cm in the right lower lobe. Further evaluation advised. Smaller nodule is seen adjacent to this mass in the right lower lobe area. 3. interstitial and alveolar opacification in the right middle , lower and upper lobes and left lower lobe suggestive of pneumonitis. 4. Extensive emphysematous changes seen bilaterally. 5. Right hilar and mediastinal lymphadenopathy. 6. The proximal abdominal aorta measures 3 cm. 07/10/2024: EXAMINATION: PET skull to mid thigh DATE: 07/10/2024 12:18 INDICATION: Malignant neoplasm of lung. TECHNIQUE: Blood glucose level was 93 mg/dL. 10.966 mCi of 18-fluorodeoxyglucose (18-FDG) was administered i.v. Low dose computed tomography (CT) images were acquired from the base of the brain to the proximal thighs for attenuation correction and anatomic localization. Automated exposure control was employed. Dose-length product (DLP) was 805 mGy-cm. Positron emission tomography (PET) images were acquired in the same distribution. COMPARISON: PET/CT 06/01/2022, chest CT 06/18/2024, 05/07/23 FINDINGS: Head/neck: There are likely changes of ocular lens replacement surgeries. There are scattered areas of low attenuation in the cerebral white matter, likely chronic small vessel ischemic disease. 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 There are no pathologically enlarged lymph nodes. Chest: There is a stent in proximal left subclavian artery. There is severe emphysema. A calcified left lung nodule and calcified left hilar and mediastinal lymph nodes are consistent with old granulomatous disease. There are airspace opacities in the lower lobes, right worse than left, with increased activity. There is increased activity in normal-sized and borderline-enlarged right hilar and mediastinal lymph nodes. No pleural effusion. The heart size is normal. There are coronary artery calcifications. No pericardial effusion. Abdomen/pelvis/proximal thighs: The liver is normal. There are changes of cholecystectomy. Calcifications in the spleen are consistent with old granulomatous disease. The pancreas, adrenal glands, and kidneys are normal. There are stents in the left bilateral common iliac arteries and left external iliac artery. There are no dilated loops of bowel. 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 There is a stent in left renal artery. There are no pathologically enlarged lymph nodes. There is no free intraperitoneal fluid. There is no osseous malignancy. There is subcutaneous old fat necrosis in right buttock. IMPRESSION: 1. Airspace opacities with increased activity in the lower lobes, right worse than left, consistent with radiation pneumonitis. 2. Severe emphysema. 3. Increased activity in normal-sized and borderline-enlarged right hilar and mediastinal lymph nodes, which may be reactive or metastatic disease. 06/18/2024: EXAMINATION: CT diagnostic chest w con INDICATION: C34.31 - Malignant neoplasm of lower lobe, right bronchus... COMPARISON: 02/22/2024 and 09/11/2022 FINDINGS: Severe emphysema with biapical pleural-parenchymal scarring. Calcified nodule at the left apex along with calcified left hilar and mediastinal lymph nodes consistent with old granulomatous disease. There is septal line thickening bilaterally basilar lower lobes, right middle lobe and lingula. Interval increase in size of a high attenuation potentially enhancing 1.7 x 1.4 cm spiculated nodule in the superior segment of the right lower lobe which measured approximately 1.2 x 1.1 cm on 12/13/2023. No significant interval change in a more caudal and lower density peripheral bandlike region of consolidation extending approximately 6 cm medial laterally measuring up to 1.5 cm in thickness likely related to changes of chronic radiation pneumonitis. No pleural effusion. Heart size is normal. Atherosclerotic coronary artery calcific location. No pericardial effusion. Thoracic aorta is normal in caliber with no dissection. There is stenting at the origin of the left subclavian artery. No significant change since 09/11/2022 in mild right hilar lymphadenopathy which favors reactive or metastatic lymph nodes. No other pathologically enlarged thoracic lymphadenopathy. A few calcified splenic granulomata. Mild to moderate thoracic spondylosis with bridging osteophytes at multiple levels consistent with diffuse idiopathic skeletal hyperostosis (DISH). IMPRESSION: 1. Enlargement of a now 1.7 x 1.4 cm higher attenuation, likely enhancing spiculated nodule in the superior segment of the right lower lobe suspicious for progression of primary lung cancer. 2. No interval change in a more caudal peripheral band of consolidation in the right lower lobe likely related to chronic radiation fibrosis for reported prior treatment of an earlier mildly FDG avid nodule at this location suspicious for lung cancer. 3. Severe emphysema. 4. Mild right hilar lymphadenopathy unchanged since 09/11/2022 which in the absence of interval treatment would favor reactive over metastatic lymphadenopathy. 11/08/2023: Echo Summary 1. Left ventricular chamber dimension is normal. 2. Left ventricular systolic function is normal, estimated at 65-70%. 3. The left ventricular diastolic function is grade I diastolic dysfunction. 4. Global longitudinal strain is abnormal at -15 %. 5. Right ventricular systolic function is normal. 6. Left atrial chamber dimension is mildly enlarged. 7. There is mild tricuspid valve regurgitation. 8. There is mild pulmonic regurgitation. Left Ventricle Left ventricular chamber dimension is normal. Left ventricular systolic function is normal, estimated at 65-70%. There is no increased left ventricular wall thickness. The left ventricular diastolic function is grade I diastolic dysfunction. Global longitudinal strain is abnormal at -15 %. Right Ventricle Right ventricular chamber dimension is normal. Right ventricular systolic function is normal. Left Atria Left atrial chamber dimension is mildly enlarged. Right Atria Right atrial chamber dimension is normal. Atrial Septum Intact interatrial septum visualized by color flow imaging. Review of Systems Constitutional: Constitutional: Reports no additional constitutional complaints Eyes: Eyes: Reports no additional eye complaints ENT: Reports system reviewed and no additional complaints, except as documented Cardiovascular: Cardiovascular: Reports no additional cardiovascular complaints Respiratory: Respiratory: Reports no additional respiratory complaints Gastrointestinal: Gastrointestinal: Reports no additional gastrointestinal complaints Musculoskeletal: Musculoskeletal: Reports no additional musculoskeletal complaints Neurologic: Reports system reviewed and no additional complaints, except as documented Psychiatric: Psychiatric: Reports no additional psychiatric complaints Endocrine: Endocrine: Reports no additional endocrine complaints Hematologic/Lymphatic: Hematologic/Lymphatic: Reports no additional hematologic/lymphatic complaints Allergic/Immunologic: Allergic/Immunologic: Reports no additional allergic/immunologic complaints Exam Const: General: cooperative and comfortable Orientation/consciousness: oriented to person, oriented to place and oriented to time Other: Debilitated HENMT: Head: normal to inspection Ears: hearing grossly normal bilaterally Eyes: General: appearance normal, both eyes and all related structures Neck: Neck: normal visual inspection Chest: Chest palpation & inspection: normal inspection of the chest Resp: Effort & Inspection: normal respiratory effort and able to speak in complete sentences Auscultation: no crackles, no rales, no rhonchi, no wheezes and lung sounds not diminished Cardio: Jugular venous distension: no JVD GI: Inspection: normal to inspection GI Palp: No abdominal tenderness Skin: General skin exam: normal color Neuro: General: oriented to person, oriented to place and oriented to time Extrem: General: normal to inspection Psych: Appearance: grossly normal Objective Data Vital Signs Vital Signs: Vital Signs - 24 hr 12/07/24 14:00 12/07/24 14:51 12/07/24 15:04 Temperature 36.2 C L Pulse Rate 107 H 92 99 Respiratory Rate 18 20 20 Blood Pressure 132/52 L Pulse Oximetry 100 Oxygen Delivery Oxygen Flow Rate 12/07/24 20:00 12/07/24 20:53 12/07/24 21:02 Temperature Pulse Rate 104 H 80 88 Respiratory Rate 20 20 Blood Pressure 148/62 H Pulse Oximetry Oxygen Delivery Oxygen Flow Rate 12/07/24 21:10 12/07/24 22:00 12/08/24 06:00 Temperature 36.5 C 36.6 C Pulse Rate 98 83 Respiratory Rate 16 20 Blood Pressure 140/57 L 147/47 H Pulse Oximetry 96 94 92 Oxygen Delivery Nasal Cannula Oxygen Flow Rate 3 12/08/24 08:28 12/08/24 08:35 12/08/24 08:44 Temperature Pulse Rate 75 80 Respiratory Rate 18 18 Blood Pressure Pulse Oximetry 93 Oxygen Delivery Nasal Cannula Oxygen Flow Rate 3 Intake/Output Intake/Output: Intake & Output 12/05/24 12/06/24 12/07/24 12/08/24 23:59 23:59 23:59 23:59 Intake Total 1100 560 920 0 Output Total 950 201 Balance 150 359 920 0 Meds/Results Medications: Active Medications Generic Name Dose Route Start Last Admin Trade Name Freq PRN Reason Stop Dose Admin Acetaminophen 650 mg 12/01/24 22:27 12/07/24 21:10 Acetaminophen 325 Mg Tablet PO 650 mg Q6H PRN Administration Mild Pain (1-3) or Fever Acetylcysteine 200 mg 12/07/24 08:00 12/08/24 08:26 Acetylcysteine 20% Inhal Soln 800 Mg/4 Ml Vial INHALATION 200 mg Q6HRT LUCY Administration Albuterol 2.5 mg 12/02/24 08:00 12/08/24 08:25 Albuterol Sulfate Neb 2.5 Mg/3 Ml Inh INHALATION 2.5 mg Q6HRT LUCY Administration Atorvastatin Calcium 40 mg 12/02/24 09:00 12/08/24 08:39 Atorvastatin 40 Mg Tablet PO 40 mg DAILY LUCY Administration Clopidogrel Bisulfate 75 mg 12/02/24 09:00 12/08/24 08:39 Clopidogrel Bisulfate 75 Mg Tablet PO 75 mg DAILY LUCY Administration Enoxaparin Sodium 30 mg 12/09/24 09:00 Enoxaparin 30 Mg/0.3 Ml Syringe SUB-Q DAILY [facility] Escitalopram Oxalate 10 mg 12/02/24 21:00 12/07/24 21:10 Escitalopram Oxalate 10 Mg Tablet PO 10 mg HS [facility] Administration Fluticasone/Umeclidinium/Vilanterol 1 puff 12/02/24 08:00 12/08/24 08:25 Fluticasone/Umeclidin/Vilanter 100-62.5-25 Mcg Ellipta INHALATION 1 puff DAILYRT [facility] Administration Furosemide 40 mg 12/07/24 17:00 12/08/24 08:39 Furosemide 40 Mg Tablet PO 40 mg BID [facility] Administration Guaifenesin 600 mg 12/02/24 05:00 12/03/24 09:17 Guaifenesin 12 Hr 600 Mg Tabcr PO 600 mg Q12H PRN Administration congestion Levofloxacin 500 mg 12/06/24 09:00 12/08/24 08:39 Levofloxacin 500 Mg Tablet PO 500 mg DAILY [facility] Administration Melatonin 5 mg 12/02/24 21:00 12/07/24 21:10 Melatonin 5 Mg Tablet PO 5 mg QHS [facility] Administration Metoclopramide HCl 5 mg 12/08/24 11:30 Metoclopramide Hcl 5 Mg Tablet PO TIDAC [facility] Ondansetron HCl 4 mg 12/02/24 13:30 12/07/24 17:12 Ondansetron Hcl Odt 4 Mg Tablet PO 4 mg Q6H PRN Administration nausea and vomiting Pantoprazole Sodium 20 mg 12/02/24 05:00 12/07/24 12:22 Pantoprazole Sod Sesquihydrate 20 Mg Tab PO 20 mg QAM PRN Administration Indigestion Radiology Results: ITS Impressions Head CT 12/01/24 20:44 IMPRESSION: No acute intracranial process. Chest X-Ray 12/04/24 06:48 Impression: Worsening alveolar and interstitial pulmonary edema pattern. Correlate clinically for pneumonia. Underlying COPD or other chronic interstitial disease. Minimal left pleural effusion. Labs Labs: Laboratory Results - last 24 hr 12/08/24 05:51 WBC 16.3 H RBC 4.00 L Hgb 12.1 Hct 38.4 MCV 96.0 MCH 30.3 MCHC 31.5 L RDW 15.5 H Plt Count 228 MPV 9.8 Sodium 136 L Potassium 4.2 Chloride 100 Carbon Dioxide 24 Anion Gap 12 BUN 26 H Creatinine 1.34 H Estim Creat Clear Calc 24 Estimated GFR 39 L Glucose 110 Calcium 8.2 L
[2024-12-08] MEDS: METOCLOPRAMIDE HCL 5 MG TABLET PO ×2 (11:14→16:54)
[2024-12-08] MEDS: guaiFENesin 12 HR 600 MG TABCR 1200 MG PO (21:14)
[2024-12-08] MEDS: ESCITALOPRAM OXALATE 10 MG TABLET PO (21:15)
[2024-12-08] MEDS: MELATONIN 5 MG TABLET PO (21:15)
[2024-12-08] MEDS: ACETAMINOPHEN 325 MG TABLET 650 MG PO (21:16)
[2024-12-09] VITALS (10 sets, daily range): BP systolic 137–158; BP diastolic 45–76; PULSE 82–98; RESP 16–20; TEMP 36.2–36.6; O2SAT 93–96
[2024-12-09] MEDS: ACETYLCYSTEINE 20% INHAL SOLN 800 MG/4 ML VIAL 200 MG INHALATION ×4 (04:51→20:05)
[2024-12-09] MEDS: ALBUTEROL SULFATE NEB 2.5 MG/3 ML INH INHALATION ×4 (04:52→20:05)
[2024-12-09] MEDS: METOCLOPRAMIDE HCL 5 MG TABLET PO ×3 (05:31→17:22)
[2024-12-09] MEDS: FLUTICASONE/UMECLIDIN/VILANTER 100-62.5-25 MCG ELLIPTA 1 PUFF INHALATION (08:23)
[2024-12-09] MEDS: CLOPIDOGREL BISULFATE 75 MG TABLET PO (08:42)
[2024-12-09] MEDS: ENOXAPARIN 30 MG/0.3 ML SYRINGE SUB-Q (08:43)
[2024-12-09] MEDS: ATORVASTATIN 40 MG TABLET PO (08:43)
[2024-12-09] MEDS: FUROSEMIDE 40 MG TABLET PO ×2 (08:43→17:23)
[2024-12-09] MEDS: guaiFENesin 12 HR 600 MG TABCR 1200 MG PO ×2 (08:43→20:33)
--- NOTE | 2024-12-09 10:37 | PM.PNPUL ---
Progress Note: A&P Assessment and Plan (1) Postobstructive pneumonia: Code(s): J18.9 - Pneumonia, unspecified organism Status: Acute Assessment and Plan: 12/04/24: She has persistent post obstructive pneumonia with 2 masses in the R lung, one in the superior segment of the RLL and another in the base of the RLL abutting the chest wall. These appear to be growing. Her last chest CT was 11/13/2024. This mass has increased since Feb 2024, now is 4.1 x 2.9 cm, and she is having progressive symptoms. She is on broad spectrum antibiotics, needs to have a biopsy of the RLL mass to confirm as her biopsy in 2022 had only scant cells. plan: I will ask RT to provide a Cornet valve, a PEP valve to help clear her secretions. She has a productive cough with copious clear secretions and difficulty expectorating these. She says that she had a Cornet valve when she was in rehab but somehow this was lost. I will also request vibratory vest to help clear her secretions and Mucomyst t.i.d. for pulmonary hygiene. She likely has an enlarging right lower lobe mass with persistent postobstructive pneumonia. She asked if she has pneumonia, and I told her that yes, I think she does, but not the usual pneumonia that we think of when we talk about pneumonia. She has enlarging right lower lobe mass which is over 4 cm and she has a PET scan from prior July which shows increasing mediastinal lymphadenopathy. She is on oxygen at rest and therefore is not a candidate for a CT-guided biopsy of her mass here. Our pulmonary department does not have endobronchial ultrasound. EBUS could be used to biopsy her mediastinal LAD. Two admissions ago, she did not want to be transferred. She may change her mind since she has been in the hosital or rehab since November 11. Oxygen as required to maintain sat 90-94%. Continue Trelegy 100 as her controller baseline therapy, and p.r.n. albuterol nebulized. Continue antibiotics, ok for Rocephin IV and oral azithromycin. All micro studies were negative last admission. I will check a CRP. 12/08/24: patient remains very weak, she has been in bed, when I asked her to set up she barely moves her arms to try to hold on to the rales and cannot pull herself up. Overall she feels tired but status that her breathing is normal. She has minimal phlegm which is normal for her and no hemoptysis. Currently she is on 3 L nasal cannula saturations 94%. She is afebrile. White blood cell count 16.3, creatinine 1.34. Plan: Patient continues to improve and is at her baseline. patient has received antibiotics since 12/01/2024. Continue Levaquin 500 q.day, today is day 8 of 10 of antibiotics. 12/09/24: Patient states that at rest her breathing is normal. She produces phlegm 2 to 3 times a day with no hemoptysis. She is too weak to get out of bed. She cannot expectorate her phlegm. When I enter the room she is on 4 L nasal cannula saturations 98%. I placed her on 3 L and her saturations were 92%. Patient had an overnight oximetry on 4 L with recording duration of 8 hours and 30 minutes. Average saturation 91%. Low saturation 83%. Time with saturation less than or equal to 88% was 84 minutes. Oxygen desaturation index 1.7. Her weight today is 47.2. From a pulmonary perspective patient is ready to be discharged to rehabilitation on these pulmonary medicines: Levofloxacin 500 mg p.o. q.day last dose on 12/10/2024 trelegy 100-62.5-25 at 1 puff q.day Rescue albuterol 2 puffs q.4 hours p.r.n. Rescue albuterol nebulizer 2.5 mg q.4 hours p.r.n. shortness of breath or wheezing Guaifenesin 600 mg p.o. q.12 hours p.r.n. congestion Cornet flutter valve q.2 hours while awake oxygen at rest, with activity and with sleep per facilities protocol. Currently she is on 3 L nasal cannula saturations 94%. Oxygen at night At 5 L nasal cannula and to be monitored at her detention facility Follow-up in the Pulmonary Clinic on 12/16/2024 at 2:15 p.m. Discussed with Yelitza Finney, will follow with you. (2) Malignant neoplasm of lower lobe, right bronchus or lung: Code(s): C34.31 - Malignant neoplasm of lower lobe, right bronchus or lung Status: Acute Assessment and Plan: She had a CT guided biopsy of the mass in the RLL mass in 07/21/2022, scant atypical cells recovered, morphologically compatible with carcinoma but is also morphologically compatible with reactive tissue. Completed SBRT 10/09/2022. CT scan 10/20/2024 showed a 2.1 cm right lower lobe nodule consolidation possibility of neoplasm, now 4.1 x 2.9 cm. Admission before last, this area was considered for a repeat CT-guided biopsy of the mass however as she is on supplemental O2, this excludes her from having a CT guided biopsy here. She is at high risk for complications, and 10 years ago, she reports having a collapsed lung. She has persistent post obstructive pneumonia with 2 masses in the R lung, one in the superior segment of the RLL and another in the base of the RLL abutting the chest wall. These appear to be growing. Her last chest CT was 11/13/2024. This mass has increased since Feb 2024, now is 4.1 x 2.9 cm, and she is having progressive symptoms. 12/08/24: The patient tells me her oncologist wanted her to recover and be discharged from rehab and see him as an outpatient prior to any additional workup. Currently the patient is debilitated on 3 L nasal cannula oxygen and will not be able to have a CT-guided biopsy at [facility] because she is on oxygen. Plan: Discussed with hospitalist. Hospitalist will reach out to Oncology to determine if there is a need for inpatient transfer to a facility that can do a CT-guided biopsy on a patient with oxygen or if a bronchoscopy with EBUS should be performed to assess her mass and right hilar and mediastinal lymphadenopathy. 12/09/24: patient to follow-up with Oncology regarding plan for enlarging right lower lobe mass. (3) Chronic obstructive pulmonary disease: Code(s): J44.9 - Chronic obstructive pulmonary disease, unspecified Status: Acute Assessment and Plan: Regarding her COPD, 118 hundred eighteen pack year tobacco use currently smoking 2 packs per day. She was diagnosed approximately 10 years ago. alpha 1 anti trypsin genotype CS with nnormal level of 187 on 11/15/2024. She does not remember having PFTs. I have no PFTs. For CT in our system from 06/11/[address] scan from 11/13/2024 demonstrates severe panlobular emphysema all lung hall. Patient tells me 10 years ago she had a collapsed lung requiring a chest tube and hospitalization and recovered. One year ago she could walk 2 blocks. Three months ago which is the last time she felt normal she could walk 1 block and was limited by leg pain. Patient had a fall and was admitted to [facility] approximately 6 months ago and at that time she was prescribed oxygen. The oxygen was delivered to her house but she did not know how to use it and returned it. At home she measures her pulse oximetry sitting on room air and this ranges from 81 to 91%. 11/13/2024: ABG on 2 L 7.46/34/70. started on trelegy 200 a few weeks ago and says that this does help her. 11/19/2024: Overnight oximetry on 3 L: Recording duration 7 hours and 46 minutes. Average saturation 90%. Low saturation 74%. Time with saturation less than or equal to 88% was on 144 minutes, oxygen desaturation index 1.3. 12/08/24: currently no evidence of COPD exacerbation. Plan: Continued trelegy 100. continue albuterol nebulizer q.6 hours, Mucomyst nebulizer q 6 hour, Cornet flutter valve to aid in expectoration. I will add guaifenesin 1200 mg p.o. b.i.d. If she remains in the hospital tonight, I will perform overnight oximetry tonight on 4 L. goal saturation 90-94% during the day. 12/09/24: Patient continues to have difficulty expectorating. Patient had an overnight oximetry on 4 L with recording duration of 8 hours and 30 minutes. Average saturation 91%. Low saturation 83%. Time with saturation less than or equal to 88% was 84 minutes. Oxygen desaturation index 1.7. Plan: Continued trelegy 100. Continue guafenisin 1200 BID, albuterol nebulizer q.6 hours, Mucomyst nebulizer q 6 hour, Cornet flutter valve to aid in expectoration. Patient will need at least 5 L nasal cannula at night and this will be monitor at her SNF facility. Subjective Date/time seen: 12/09/24 10:37 Interval history: 12/05/24 at 12:35 p.m. Room 202 bed 1. NEW: Dawn Bocanegra is a 73-year-old woman with chronic respiratory failure on oxygen, COPD, tobacco abuse with smoking up until her November 11 admission, lung cancer in the RLL s/p SBRT completed 10/09/22. Her recent admission was from home, November 11- for postobstructive pneumonia in the right lower lobe. She has panlobular emphysema with 118 pack year history of tobacco abuse. She went to rehab from November 21 through , was readmitted to the hospital side without going home, had weakness, coughing, clear sputum, and an increase in her O2 need. She is wearing O2 now, but tells me that it is new. It is not new, she has been prescribed O2 for a while. White blood cell count was elevated 16.3, has been decreasing since admission. Arterial blood gas December 04 showed a pH of 7.18 he had, pCO2 49.9 PO2 51.6 bicarbonate 18.3 saturation 77.4%. This was on 15 L non-rebreather mask. She was placed on BiPAP 17/01 with oxygen 50% with normalization of the gas, pH 7.46 pCO2 33.2, PO2 0 8, HC03 23.2 saturation 98.2%. She admitted 12/01 with weakness, was on 2 L/min. CXR 12/04 shows worsening interstitial infiltrates on CXR and O2 need has increased. She has been treated with IV Rocephin and oral azithromycin. Last admission, she was negative in influenza A/B, RSV and SARS-CoV-2, mycoplasma titers were normal, urine antigen for strep pneumonia Legionella were negative. MRSA nasal swab was negative. Extended respiratory pathogen panel was negative. She was loaded up on antibiotics, azithromycin, meropenem and vancomycin, changed to cefepime, Flagyl and doxycycline when she was admitted to the floor. Dr. Bañuelos saw her on November 14 post obstructive pneumonia, COPD, see note below. She was prescribed O2 prior to the last admission, she told the [facility] that she did not want it, and this was returned to the [facility]. She worsening respiratory status, was readmitted to the hospital on 12/01/2024. She says she has a cough with clear sputum production. She is on IV Rocephin and oral azithromycin, Trelegy 100 puff a day and p.r.n. albuterol 2.5 mg nebulized bronchodilator q.6 hours. PMH: hypertension, hyperlipidemia, GERD, subclavian artery stenosis status post stent, renal artery stenosis, peripheral artery disease status post right carotid endarterectomy 1995, left carotid endarterectomy, COPD, radiographic lung cancer status post XRT. Dr. Palomo treats her for lung cancer, completed SBRT 10/09/2022. She had a PET/CT scan 07/10/2024 showing Airspace opacities with increased activity in the lower lobes, right worse than left, consistent with radiation pneumonitis; Severe emphysema. Increased activity in normal-sized and borderline-enlarged right hilar and mediastinal lymph nodes, which may be reactive or metastatic disease. 12/08/24: patient remains very weak, she has been in bed, when I asked her to set up she barely moves her arms to try to hold on to the rales and cannot pull herself up. Overall she feels tired but status that her breathing is normal. She has minimal phlegm which is normal for her and no hemoptysis. Currently she is on 3 L nasal cannula saturations 94%. She is afebrile. White blood cell count 16.3, creatinine 1.34. 12/09/24: Patient states that at rest her breathing is normal. She produces phlegm 2 to 3 times a day with no hemoptysis. She is too weak to get out of bed. She cannot expectorate her phlegm. When I enter the room she is on 4 L nasal cannula saturations 98%. I placed her on 3 L and her saturations were 92%. Patient had an overnight oximetry on 4 L with recording duration of 8 hours and 30 minutes. Average saturation 91%. Low saturation 83%. Time with saturation less than or equal to 88% was 84 minutes. Oxygen desaturation index 1.7. Her weight today is 47.2. DATA * 12/04/2024; CXR Comparison: 12/01/2024 Clinical History: Hypoxia Findings: There is worsening hazy and interstitial pulmonary disease bilaterally, compatible worsening pulmonary edema. Probable underlying COPD or other chronic interstitial disease. Possible minimal left pleural effusion. Cardiomediastinal silhouette is stable. Bones and soft tissues are unremarkable. Impression: Worsening alveolar and interstitial pulmonary edema pattern. Correlate clinically for pneumonia. Underlying COPD or other chronic interstitial disease. Minimal left pleural effusion. * 07/10/2024; PET ; IMPRESSION: 1. Airspace opacities with increased activity in the lower lobes, right worse than left, consistent with radiation pneumonitis. 2. Severe emphysema. 3. Increased activity in normal-sized and borderline-enlarged right hilar and mediastinal lymph nodes, which may be reactive or metastatic disease. * 02/22/[address] 15 mm nodule RLL * 10/20/[address]; 2.1 cm irregular nodular consolidation the suprasellar right lower lobe posteriorly. This could reflect neoplasm, rounded atelectasis, less likely pneumonia. Correlate clinically.More extensive irregular area of consolidation the more inferior posterior right lower lobe, measuring up to 3.9 cm in extent. Again, diagnostic constrictions include pneumonia, rounded atelectasis, or neoplasm. * 11/13/[address] ; Mass measuring 4.1 x 2.9 cm in the right lower lobe. Further evaluation advised. Smaller nodule is seen adjacent to this mass in the right lower lobe area. This is the start of her history from 11/14/2024 with a new pulmonary consult for lung biopsy, Dr Bañuelos. . 73-year-old with a history of hypertension, hyperlipidemia, GERD, Subclavian artery stenosis status post stent, renal artery stenosis, Peripheral artery disease status post right carotid endarterectomy 1995, left carotid endarterectomy .COPD, radiographic lung cancer status post XRT. Regarding her COPD she was diagnosed approximately 10 years ago. She does not remember having PFTs. patient tells me 10 years ago she had a collapsed lung requiring a chest tube and hospitalization and recovered.One year ago she could walk 2 blocks. Three months ago which is the last time she felt normal she could walk 1 block and was limited by leg pain. Patient had a fall and was admitted to [facility] approximately 6 months ago and at that time she was prescribed oxygen. The oxygen was delivered to her house but she did not know how to use it and returned it. At home she measures her pulse oximetry sitting on room air and this ranges from 81 to 90 1%. Patient smoked tobacco from age 14 to current at 2 packs per day for 118 pack years, patient was exposed to secondhand smoke from both of her parents. She worked on an [employer] line and was exposed to acetate but denies exposure to sandblasting, welding, asbestos, professional painting, steel primary mill roller, coal mining or construction work. Patient is followed by Oncology, Dr. Palomo, last note I have is from 10/24/2024. Patient had a CT-guided biopsy of a right lung mass on 07/21/2022 with scant atypical cells. In the comment it says morphologically compatible with carcinoma but is also morphologically compatible with reactive tissue. Completed SBRT 10/09/2022. CT scan 10/20/2024 showed a 2.1 cm right lower lobe nodule consolidation possibility of neoplasm. The mass has increased in size from the previous CT when it was 1.[address]-guided biopsy of the mass ordered and based on the pathology we will decide about PET scan. 11/05/2024: PCP office visit note for 1 week of cough and congestion. Room air saturations were listed as 75%. She had rhonchi and wheezes and was prescribed a Z-Gray and steroids. Patient took these medicines but felt no improvement. 11/12/2024: Patient presented to the hospital for outpatient CT-guided lung biopsy with low saturations and was sent to the emergency room. She had a white count of 13.4, creatinine 0.85, BNP 1720 and required 2 L nasal cannula for saturation 93%. Patient left AMA. 11/13/2024: Patient returned to the emergency room with worsening shortness of breath, cough and congestion. Room air saturations were 81%. She had rales and rhonchi. White blood cell count 14.5, eosinophils 0.7%. Creatinine 0.89. CRP 15.1. COVID, influenza and RSV RT PCR assay negative. MRSA nasal swab negative. ABG on 2 L 7.46/34/70. Patient was initiated on azithromycin, meropenem and vancomycin. This was changed to vancomycin, cefepime, Flagyl and doxycycline when she was admitted to the floor. 11/13/2024: Patient tells me she feels the same as she did yesterday. She has shortness of breath at rest and with activity and has not been out of bed. She had previously been on 3 L nasal cannula but the nurse told me her saturations went to 77% about 3 minutes before I entered. She was placed on 5 L and her saturations were 91%. She complains of being tired, no chest pain no hemoptysis. she says the phlegm is increased over the last 3 months and sometimes he gets stuck in her throat. DATA 11/13/2024: CTA chest PE protocol History: 73 years Female with . shortness of breath . Comparison: October 20, 2024 Findings: PULMONARY ARTERIES: No pulmonary embolus. VISUALIZED THORACIC INLET: Normal. MEDIASTINUM: Aorta/coronary arteries: Mild atheromatous disease. Heart/other: The heart is not enlarged. Lymph nodes: Prevascular lymphadenopathy is seen with the largest measures 1.6 cm. Bilateral hilar lymphadenopathy more in the right side. Subcarinal calcified lymph notes. Calcified lymph node in the left hilum. LUNGS: Emphysematous changes of the lungs. A mass is seen in the right lower lobe measuring 4.1 x 2.9 cm. Further evaluation advised. Smaller nodule is seen medially in the right lower lobe measuring 1.4 cm. Minimal interstitial opacification is seen in the right middle lobe and right upper lobe. Interstitial opacification also seen around the mass in the right lower lobe. Minimal interstitial opacification the left lung base. Right pleural effusion. No pulmonary nodules . No pneumothorax. VISUALIZED UPPER ABDOMEN: Proximal abdominal aorta measures 3 cm. Stent is seen in the left renal artery. Status post cholecystectomy. Slightly prominent pancreatic duct. Prominent CBD measuring 1.1 cm.. Otherwise, the visualized upper abdomen is normal. MUSCULOSKELETAL: Soft tissues: The superficial soft tissues are normal. Bones: Age appropriate degenerative changes of the spine. Increased kyphosis. Osteopenia of the bones. IMPRESSION: 1. No pulmonary embolism. 2. Mass measuring 4.1 x 2.9 cm in the right lower lobe. Further evaluation advised. Smaller nodule is seen adjacent to this mass in the right lower lobe area. 3. interstitial and alveolar opacification in the right middle , lower and upper lobes and left lower lobe suggestive of pneumonitis. 4. Extensive emphysematous changes seen bilaterally. 5. Right hilar and mediastinal lymphadenopathy. 6. The proximal abdominal aorta measures 3 cm. 07/10/2024: EXAMINATION: PET skull to mid thigh DATE: 07/10/2024 12:18 INDICATION: Malignant neoplasm of lung. TECHNIQUE: Blood glucose level was 93 mg/dL. 10.966 mCi of 18-fluorodeoxyglucose (18-FDG) was administered i.v. Low dose computed tomography (CT) images were acquired from the base of the brain to the proximal thighs for attenuation correction and anatomic localization. Automated exposure control was employed. Dose-length product (DLP) was 805 mGy-cm. Positron emission tomography (PET) images were acquired in the same distribution. COMPARISON: PET/CT 06/01/2022, chest CT 06/18/2024, 05/07/23 FINDINGS: Head/neck: There are likely changes of ocular lens replacement surgeries. There are scattered areas of low attenuation in the cerebral white matter, likely chronic small vessel ischemic disease. 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 There are no pathologically enlarged lymph nodes. Chest: There is a stent in proximal left subclavian artery. There is severe emphysema. A calcified left lung nodule and calcified left hilar and mediastinal lymph nodes are consistent with old granulomatous disease. There are airspace opacities in the lower lobes, right worse than left, with increased activity. There is increased activity in normal-sized and borderline-enlarged right hilar and mediastinal lymph nodes. No pleural effusion. The heart size is normal. There are coronary artery calcifications. No pericardial effusion. Abdomen/pelvis/proximal thighs: The liver is normal. There are changes of cholecystectomy. Calcifications in the spleen are consistent with old granulomatous disease. The pancreas, adrenal glands, and kidneys are normal. There are stents in the left bilateral common iliac arteries and left external iliac artery. There are no dilated loops of bowel. 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 There is a stent in left renal artery. There are no pathologically enlarged lymph nodes. There is no free intraperitoneal fluid. There is no osseous malignancy. There is subcutaneous old fat necrosis in right buttock. IMPRESSION: 1. Airspace opacities with increased activity in the lower lobes, right worse than left, consistent with radiation pneumonitis. 2. Severe emphysema. 3. Increased activity in normal-sized and borderline-enlarged right hilar and mediastinal lymph nodes, which may be reactive or metastatic disease. 06/18/2024: EXAMINATION: CT diagnostic chest w con INDICATION: C34.31 - Malignant neoplasm of lower lobe, right bronchus... COMPARISON: 02/22/2024 and 09/11/2022 FINDINGS: Severe emphysema with biapical pleural-parenchymal scarring. Calcified nodule at the left apex along with calcified left hilar and mediastinal lymph nodes consistent with old granulomatous disease. There is septal line thickening bilaterally basilar lower lobes, right middle lobe and lingula. Interval increase in size of a high attenuation potentially enhancing 1.7 x 1.4 cm spiculated nodule in the superior segment of the right lower lobe which measured approximately 1.2 x 1.1 cm on 12/13/2023. No significant interval change in a more caudal and lower density peripheral bandlike region of consolidation extending approximately 6 cm medial laterally measuring up to 1.5 cm in thickness likely related to changes of chronic radiation pneumonitis. No pleural effusion. Heart size is normal. Atherosclerotic coronary artery calcific location. No pericardial effusion. Thoracic aorta is normal in caliber with no dissection. There is stenting at the origin of the left subclavian artery. No significant change since 09/11/2022 in mild right hilar lymphadenopathy which favors reactive or metastatic lymph nodes. No other pathologically enlarged thoracic lymphadenopathy. A few calcified splenic granulomata. Mild to moderate thoracic spondylosis with bridging osteophytes at multiple levels consistent with diffuse idiopathic skeletal hyperostosis (DISH). IMPRESSION: 1. Enlargement of a now 1.7 x 1.4 cm higher attenuation, likely enhancing spiculated nodule in the superior segment of the right lower lobe suspicious for progression of primary lung cancer. 2. No interval change in a more caudal peripheral band of consolidation in the right lower lobe likely related to chronic radiation fibrosis for reported prior treatment of an earlier mildly FDG avid nodule at this location suspicious for lung cancer. 3. Severe emphysema. 4. Mild right hilar lymphadenopathy unchanged since 09/11/2022 which in the absence of interval treatment would favor reactive over metastatic lymphadenopathy. 11/08/2023: Echo Summary 1. Left ventricular chamber dimension is normal. 2. Left ventricular systolic function is normal, estimated at 65-70%. 3. The left ventricular diastolic function is grade I diastolic dysfunction. 4. Global longitudinal strain is abnormal at -15 %. 5. Right ventricular systolic function is normal. 6. Left atrial chamber dimension is mildly enlarged. 7. There is mild tricuspid valve regurgitation. 8. There is mild pulmonic regurgitation. Left Ventricle Left ventricular chamber dimension is normal. Left ventricular systolic function is normal, estimated at 65-70%. There is no increased left ventricular wall thickness. The left ventricular diastolic function is grade I diastolic dysfunction. Global longitudinal strain is abnormal at -15 %. Right Ventricle Right ventricular chamber dimension is normal. Right ventricular systolic function is normal. Left Atria Left atrial chamber dimension is mildly enlarged. Right Atria Right atrial chamber dimension is normal. Atrial Septum Intact interatrial septum visualized by color flow imaging. Review of Systems Review of Systems: All systems reviewed & are unremarkable except as noted in HPI and below Constitutional: Constitutional: Reports no additional constitutional complaints Eyes: Eyes: Reports no additional eye complaints ENT: Reports system reviewed and no additional complaints, except as documented Cardiovascular: Cardiovascular: Reports no additional cardiovascular complaints Respiratory: Respiratory: Reports no additional respiratory complaints Gastrointestinal: Gastrointestinal: Reports no additional gastrointestinal complaints Musculoskeletal: Musculoskeletal: Reports no additional musculoskeletal complaints Neurologic: Reports system reviewed and no additional complaints, except as documented Psychiatric: Psychiatric: Reports no additional psychiatric complaints Endocrine: Endocrine: Reports no additional endocrine complaints Hematologic/Lymphatic: Hematologic/Lymphatic: Reports no additional hematologic/lymphatic complaints Allergic/Immunologic: Allergic/Immunologic: Reports no additional allergic/immunologic complaints Exam Const: General: cooperative and comfortable Orientation/consciousness: oriented to person, oriented to place and oriented to time Other: Debilitated HENMT: Head: normal to inspection Ears: hearing grossly normal bilaterally Eyes: General: appearance normal, both eyes and all related structures Neck: Neck: normal visual inspection Chest: Chest palpation & inspection: normal inspection of the chest Resp: Effort & Inspection: normal respiratory effort and able to speak in complete sentences Auscultation: no crackles, no rales, rhonchi, no wheezes and lung sounds not diminished Other: Coarse rhonchi consistent with retained secretions. Cardio: Jugular venous distension: no JVD GI: Inspection: normal to inspection Skin: General skin exam: normal color Neuro: General: oriented to person, oriented to place and oriented to time Extrem: General: normal to inspection Psych: Appearance: grossly normal Objective Data Vital Signs Vital Signs: Vital Signs - 24 hr 12/08/24 13:59 12/08/24 14:00 12/08/24 14:11 Temperature 36.6 C Pulse Rate 98 101 H 90 Respiratory Rate 18 18 18 Blood Pressure 121/47 L Pulse Oximetry 94 Oxygen Delivery Oxygen Flow Rate Fraction of Inspired Oxygen 12/08/24 20:00 12/08/24 20:55 12/08/24 20:57 Temperature 37.0 C Pulse Rate 96 94 94 Respiratory Rate 20 20 20 Blood Pressure 125/55 L Pulse Oximetry 93 99 Oxygen Delivery Nasal Cannula Oxygen Flow Rate 4 Fraction of Inspired Oxygen 36 12/08/24 21:16 12/08/24 21:24 12/09/24 06:00 Temperature 37.0 C 36.2 C L Pulse Rate 96 82 Respiratory Rate 20 16 Blood Pressure 125/55 L 137/45 L Pulse Oximetry 93 93 95 Oxygen Delivery Nasal Cannula Oxygen Flow Rate 3 Fraction of Inspired Oxygen 12/09/24 08:28 Temperature Pulse Rate 90 Respiratory Rate 20 Blood Pressure Pulse Oximetry Oxygen Delivery Oxygen Flow Rate Fraction of Inspired Oxygen Intake/Output Intake/Output: Intake & Output 12/06/24 12/07/24 12/08/24 12/09/24 23:59 23:59 23:59 23:59 Intake Total 560 920 360 Output Total 201 300 300 Balance 359 920 60 -300 Meds/Results Medications: Active Medications Generic Name Dose Route Start Last Admin Trade Name Freq PRN Reason Stop Dose Admin Acetaminophen 650 mg 12/01/24 22:27 12/08/24 21:16 Acetaminophen 325 Mg Tablet PO 650 mg Q6H PRN Administration Mild Pain (1-3) or Fever Acetylcysteine 200 mg 12/07/24 08:00 12/09/24 08:22 Acetylcysteine 20% Inhal Soln 800 Mg/4 Ml Vial INHALATION 200 mg Q6HRT LUCY Administration Albuterol 2.5 mg 12/02/24 08:00 12/09/24 08:23 Albuterol Sulfate Neb 2.5 Mg/3 Ml Inh INHALATION 2.5 mg Q6HRT LUCY Administration Atorvastatin Calcium 40 mg 12/02/24 09:00 12/09/24 08:43 Atorvastatin 40 Mg Tablet PO 40 mg DAILY LUCY Administration Clopidogrel Bisulfate 75 mg 12/02/24 09:00 12/09/24 08:42 Clopidogrel Bisulfate 75 Mg Tablet PO 75 mg DAILY LUCY Administration Enoxaparin Sodium 30 mg 12/09/24 09:00 12/09/24 08:43 Enoxaparin 30 Mg/0.3 Ml Syringe SUB-Q 30 mg DAILY LUCY Administration Escitalopram Oxalate 10 mg 12/02/24 21:00 12/08/24 21:15 Escitalopram Oxalate 10 Mg Tablet PO 10 mg HS LUCY Administration Fluticasone/Umeclidinium/Vilanterol 1 puff 12/02/24 08:00 12/09/24 08:23 Fluticasone/Umeclidin/Vilanter 100-62.5-25 Mcg Ellipta INHALATION 1 puff DAILYRT LUCY Administration Furosemide 40 mg 12/07/24 17:00 12/09/24 08:43 Furosemide 40 Mg Tablet PO 40 mg BID LUCY Administration Guaifenesin 600 mg 12/02/24 05:00 12/03/24 09:17 Guaifenesin 12 Hr 600 Mg Tabcr PO 600 mg Q12H PRN Administration congestion Guaifenesin 1,200 mg 12/08/24 21:00 12/09/24 08:43 Guaifenesin 12 Hr 600 Mg Tabcr PO 1,200 mg Q12HR LUCY Administration Levofloxacin 500 mg 12/06/24 09:00 12/09/24 08:42 Levofloxacin 500 Mg Tablet PO 500 mg DAILY LUCY Administration Melatonin 5 mg 12/02/24 21:00 12/08/24 21:15 Melatonin 5 Mg Tablet PO 5 mg QHS LUCY Administration Metoclopramide HCl 5 mg 12/08/24 11:30 12/09/24 05:31 Metoclopramide Hcl 5 Mg Tablet PO 5 mg TIDAC LUCY Administration Ondansetron HCl 4 mg 12/02/24 13:30 12/07/24 17:12 Ondansetron Hcl Odt 4 Mg Tablet PO 4 mg Q6H PRN Administration nausea and vomiting Pantoprazole Sodium 20 mg 12/02/24 05:00 12/07/24 12:22 Pantoprazole Sod Sesquihydrate 20 Mg Tab PO 20 mg QAM PRN Administration Indigestion Radiology Results: ITS Impressions Head CT 12/01/24 20:44 IMPRESSION: No acute intracranial process. Chest X-Ray 12/04/24 06:48 Impression: Worsening alveolar and interstitial pulmonary edema pattern. Correlate clinically for pneumonia. Underlying COPD or other chronic interstitial disease. Minimal left pleural effusion.
--- NOTE | 2024-12-09 11:07 | PCNFU ---
Nutrition Follow-Up Complete: Moderate protein calorie malnutrition related to reduced appetite and intake as evidenced by pt report of poor po intake greater than 1 month, a significant weight loss of -5% x 1 month Goal:PO intake greater than 50% of meals and supplements Pt not meeting goal. continue with same goal Pt current nutrition is Heart healthy, nutrition ice cream cups BID. Nutrition recommendation: encourage po intake Last recorded weight is 47.2 kg. Bowel Motility: +BM / Labs Reviewed: Na:136, BUN:26, Cr:1.34, Phos:1.7 Meds Noted: lasix, lovenox, reglan Skin: wNL Additional Notes: Pt continues on a heart healthy diet, intake 25-50% most meals. Pt reports a reduced appetite still and nausea at times. Pt also states she has not received the nutrition ice cream cups. Not interested in Ensure. Will call dietary to request ice cream cups on trays. Encouraged po intake. Agree with orders. Monitor intake, wt, labs. Follow up in 7 days
--- NOTE | 2024-12-09 12:29 | P.PNIM_ITS ---
Progress Note: A&P Assessment and Plan (1) Acute respiratory failure: Code(s): J96.00 - Acute respiratory failure, unspecified whether with hypoxia or hypercapnia Status: Acute Assessment and Plan: 12/05 Seems to be responding to IV furosemide due to possible volume overload with diastolic dysfunction (EF 60-65%) Continue diuresis, monitor labs As procalcitonin was 0.5 12/02, 12/06 switch to PO amoxiclav for possible recurrent post-obstructive pneumonia 12/07 Continue oxygen 3<4L LPM by [place] and wean as tolerated (2) Abnormal chest x-ray: Code(s): R93.89 - Abnormal findings on diagnostic imaging of other specified body structures Status: Acute Assessment and Plan: RLL lung mass, s/p RT, possible pulmonary edema, possible post-obstructive pneumonia 12/07 switch to po furosemide 40 mg bid (home dose was 40 mg daily) (3) Dizziness: Code(s): R42 - Dizziness and giddiness Status: Acute Assessment and Plan: 12/07 Unable to complete orthostatic BP due to refusal to stand due to dizziness, but BP farheen from supine to sitting position 12/07 Dronabinol was begun since admission 11/2024 and commonly causes dizziness, so discontinued this, continue PT/OT and await placement in rehab (4) Right lower lobe lung mass: Code(s): R91.8 - Other nonspecific abnormal finding of lung field Status: Acute Assessment and Plan: Chest x-ray shows stable right lower lobe masses and interstitial opacities in the peripheral in lower right lung - recently treated for PNA, received IV doxycycline and Rocephin but not febrile - patient has know leukocytosis. patient meet criteria for SIRS/Sepsis Azithromycin + Ceftriaxone started 12/04, switched to PO Augmentin 12/06 --WBC trending up --Oncology consult (5) Moderate malnutrition: Code(s): E44.0 - Moderate protein-calorie malnutrition Status: Acute Assessment and Plan: Suspect related to malignancy --Encouraged PO intake, continue Ensure, encouraged to have friends or family bring outside food (6) Acute kidney injury: Code(s): N17.9 - Acute kidney failure, unspecified Status: Acute Assessment and Plan: Resolved (7) Chronic obstructive pulmonary disease: Code(s): J44.9 - Chronic obstructive pulmonary disease, unspecified Status: Acute Assessment and Plan: No oxygen at home - continues to cough - continue with current treatment regimen. - oxygen per nasal canula to keep sats above 90% - was on CPAP with FiO2 50% overnight 12/04-12/05, 12/05 on 3 LPM by [place] with sats in 90s -On 4L today (8) Hyperkalemia: Code(s): E87.5 - Hyperkalemia Status: Acute Assessment and Plan: Resolved (9) Hypertension: Code(s): I10 - Essential (primary) hypertension Status: Acute Assessment and Plan: BP controlled (10) Anxiety: Code(s): F41.9 - Anxiety disorder, unspecified Status: Acute Assessment and Plan: Continue medications (11) Depression: Code(s): F32.A - Depression, unspecified Status: Acute Assessment and Plan: Continue medications (12) Dyslipidemia: Code(s): E78.5 - Hyperlipidemia, unspecified Status: Acute Assessment and Plan: Continue medications (13) Protein calorie malnutrition: Code(s): E46 - Unspecified protein-calorie malnutrition Status: Acute Time Spent With Patient Time: 53 minutes Subjective Date/time seen: 12/09/24 12:29 Interval history: Still on 4L O2, none at home WBC trending up Not currently interested in surgery, radiation, and would like to confirm if it is cancer, but doesn't want to transfer to a different hospital. Unfortunately, radiology will not biopsy here because she's on oxygen. Consulted oncology to discuss if a biopsy would be indicated. Would have to be arranged outpatient at another facility. Review of Systems Review of Systems: 12 systems were reviewed and are negativ e except for as per HPI. All systems reviewed & are unremarkable except as noted in HPI and below Constitutional: Constitutional: Reports as per HPI and Reports no additional constitutional complaints Exam Narrative: HEENT: PERRL, sclerae nonicteric, pharyngeal mucosa pink and intact NECK: No JVD, adenopathy, or thyromegaly CHEST: Coarse breath sounds with expiratory rhonchi, normal effort HEART: NL S1/S2, regular, no murmur ABDOMEN: BS+, soft, nontender, no mass, no bruits EXTREMITIES: No cyanosis, edema, or clubbing NEUROLOGIC: CN intact and symmetric to inspection, [id number] intact bilaterally MUSCULOSKELETAL: Tone and strength symmetric PSYCH: Alert. Oriented to person, place, and time Objective Data Vital Signs Vital Signs: Vital Signs - 24 hr 12/08/24 13:59 12/08/24 14:00 12/08/24 14:11 Temperature 98 F Pulse Rate 98 101 H 90 Respiratory Rate 18 18 18 Blood Pressure 121/47 L Pulse Oximetry 94 Oxygen Delivery Oxygen Flow Rate Fraction of Inspired Oxygen 12/08/24 20:00 12/08/24 20:55 12/08/24 20:57 Temperature 98.6 F Pulse Rate 96 94 94 Respiratory Rate 20 20 20 Blood Pressure 125/55 L Pulse Oximetry 93 99 Oxygen Delivery Nasal Cannula Oxygen Flow Rate 4 Fraction of Inspired Oxygen 36 12/08/24 21:16 12/08/24 21:24 12/09/24 06:00 Temperature 98.6 F 97.1 F L Pulse Rate 96 82 Respiratory Rate 20 16 Blood Pressure 125/55 L 137/45 L Pulse Oximetry 93 93 95 Oxygen Delivery Nasal Cannula Oxygen Flow Rate 3 Fraction of Inspired Oxygen 12/09/24 08:28 12/09/24 08:40 Temperature Pulse Rate 90 Respiratory Rate 20 Blood Pressure Pulse Oximetry 95 Oxygen Delivery Nasal Cannula Oxygen Flow Rate 3 Fraction of Inspired Oxygen Intake/Output Intake/Output: Intake & Output 12/06/24 12/07/24 12/08/24 12/09/24 23:59 23:59 23:59 23:59 Intake Total 560 920 360 120 Output Total 201 300 300 Balance 359 920 60 -180 Meds/Results Medications: Active Medications Generic Name Dose Route Start Last Admin Trade Name Freq PRN Reason Stop Dose Admin Acetaminophen 650 mg 12/01/24 22:27 12/08/24 21:16 Acetaminophen 325 Mg Tablet PO 650 mg Q6H PRN Administration Mild Pain (1-3) or Fever Acetylcysteine 200 mg 12/07/24 08:00 12/09/24 08:22 Acetylcysteine 20% Inhal Soln 800 Mg/4 Ml Vial INHALATION 200 mg Q6HRT LUCY Administration Albuterol 2.5 mg 12/02/24 08:00 12/09/24 08:23 Albuterol Sulfate Neb 2.5 Mg/3 Ml Inh INHALATION 2.5 mg Q6HRT LUCY Administration Atorvastatin Calcium 40 mg 12/02/24 09:00 12/09/24 08:43 Atorvastatin 40 Mg Tablet PO 40 mg DAILY LUCY Administration Clopidogrel Bisulfate 75 mg 12/02/24 09:00 12/09/24 08:42 Clopidogrel Bisulfate 75 Mg Tablet PO 75 mg DAILY LUCY Administration Enoxaparin Sodium 30 mg 12/09/24 09:00 12/09/24 08:43 Enoxaparin 30 Mg/0.3 Ml Syringe SUB-Q 30 mg DAILY LUCY Administration Escitalopram Oxalate 10 mg 12/02/24 21:00 12/08/24 21:15 Escitalopram Oxalate 10 Mg Tablet PO 10 mg HS LUCY Administration Fluticasone/Umeclidinium/Vilanterol 1 puff 12/02/24 08:00 12/09/24 08:23 Fluticasone/Umeclidin/Vilanter 100-62.5-25 Mcg Ellipta INHALATION 1 puff DAILYRT LUCY Administration Furosemide 40 mg 12/07/24 17:00 12/09/24 08:43 Furosemide 40 Mg Tablet PO 40 mg BID LUCY Administration Guaifenesin 600 mg 12/02/24 05:00 12/03/24 09:17 Guaifenesin 12 Hr 600 Mg Tabcr PO 600 mg Q12H PRN Administration congestion Guaifenesin 1,200 mg 12/08/24 21:00 12/09/24 08:43 Guaifenesin 12 Hr 600 Mg Tabcr PO 1,200 mg Q12HR LUCY Administration Levofloxacin 500 mg 12/06/24 09:00 12/09/24 08:42 Levofloxacin 500 Mg Tablet PO 12/10/24 11:00 500 mg DAILY LUCY Administration Melatonin 5 mg 12/02/24 21:00 12/08/24 21:15 Melatonin 5 Mg Tablet PO 5 mg QHS LUCY Administration Metoclopramide HCl 5 mg 12/08/24 11:30 12/09/24 11:33 Metoclopramide Hcl 5 Mg Tablet PO 5 mg TIDAC LUCY Administration Ondansetron HCl 4 mg 12/02/24 13:30 12/07/24 17:12 Ondansetron Hcl Odt 4 Mg Tablet PO 4 mg Q6H PRN Administration nausea and vomiting Pantoprazole Sodium 20 mg 12/02/24 05:00 12/07/24 12:22 Pantoprazole Sod Sesquihydrate 20 Mg Tab PO 20 mg QAM PRN Administration Indigestion Radiology Results: ITS Impressions Head CT 12/01/24 20:44 IMPRESSION: No acute intracranial process. Chest X-Ray 12/04/24 06:48 Impression: Worsening alveolar and interstitial pulmonary edema pattern. Correlate c linically for pneumonia. Underlying COPD or other chronic interstitial disease. Minimal left pleural effusion. Quality VTE Prophylaxis VTE prophylaxis: mechanical ordered Hospitalist MIPS Advance Care Plan I have confirmed that the patient's Advanced Care Plan is present, code status is documented, or surrogate decision maker is listed in patient medical record.: Yes Medication Reconciliation I have utilized all available resources to obtain, update and review the patients current medications (includes all prescriptions, OTC, herbals, cannabis, and nutritional supplements).: Yes
--- NOTE | 2024-12-09 19:18 | P.CONONC_ITS ---
Assessment and Plan Assessment and plan (1) Malignant neoplasm of lower lobe, right bronchus or lung: Code(s): C34.31 - Malignant neoplasm of lower lobe, right bronchus or lung Status: Acute Assessment and Plan: Patient has a history of right lower lobe likely lung cancer status post CT- guided biopsy done in July of 2022 came back nondiagnostic but highly suspicious for malignancy status post SBRT treatment to the right lower lobe lung mass on October 09, 2022. Patient was last seen in the office in October [address] chest done on October 20 showed 2.1 cm right lower lobe consolidation suspicious for malignancy. Biopsy was recommended but patient does not want to have biopsy done and would not like any treatment for cancer. I have reviewed the recent CT scan chest done on November 13, 2024 as well with the patient. She is also not ready for hospice and comfort care. She would like to go home and then will contact us with her decision regarding biopsy versus hospice/comfort care. I will sign off the case. HPI Data of Consult Date/Time: 12/09/24 19:18 Requesting Physician: Xiomara Chang MD Primary Care Provider: Jana Aguiar PA-C Consult Narrative Narrative: Dawn Bocanegra is a 73 year old female with history of lung cancer status post CT-guided biopsy of the right lower lobe lung mass attempted on July 21 2022 came back nondiagnostic but highly suspicious for malignancy. Patient received SBRT treatment for the right lower lung mass completed October 09, 2022. Patient was last seen in the office on October 24. Patient had CT chest done on October 20 that showed 2.1 cm right lower lobe lung consolidation suspicious for neoplasm that has increased in size from the previous reading of 1.7. I wanted to get a CT- guided biopsy of the mass. Patient now came into the hospital with generalized weakness shortness of breath and weight loss. She was diagnosed with pneumonia. Chest CTA showed no evidence of pulmonary embolism but the right lower lobe mass has increased in size now 4.1 x 2.9 cm with smaller nodule adjacent to this mass in the right lower lobe. There was right hilar and mediastinal lymphadenopathy. There was finding suggestive of pneumonitis in the left lower lobe and upper lobe. Head CT showed no intracranial process. Review of Systems 2 Review of Systems: Twelve point review of system was reviewed [facility] Past Medical History Medical History (Updated 12/07/24 @ 10:22 by Asa Romo MD) Mediastinal lymphadenopathy Nonobstructive atherosclerosis of coronary artery Cerebrovascular accident Tobacco abuse Carotid artery disease Peripheral vascular disease Chronic obstructive pulmonary disease Transient ischemic attack Gastroesophageal reflux disease Hypertension Osteoporosis History of radiation therapy right lower lobe 2022 Malignant neoplasm of lower lobe, right bronchus or lung Depression Dyslipidemia Anxiety Surgical History Surgical History (Updated 12/01/24 @ 20:24 by Jacqui Shen PA-C) History of bilateral carotid endarterectomy Status post angioplasty with stent iliac, subclavian, renal arteries History of cholecystectomy History of total hysterectomy with bilateral salpingo-oophorectomy (BSO) Family History Family History Sibling Cancer of kidney Sibling Hypertension Father Hypertension Social History Social History Social History: Surrogate medical decision maker: Yaakov Bocanegra, son. Code status: Full code. Smoking packs per day: 2 Smoking cigarettes per day: 40.0 Years smoked: 40 Smoking pack-years: 80.00 Smoking status: Never smoker Tobacco type: cigarettes Second hand tobacco smoke exposure: No Additional smoking assessment comments: weaning off cigarettes Alcohol intake: never Drinks per week: 5 Substance use: never Substance use type: does not use Do You Feel Safe in your Home?: Yes Lack of Transportation: No Lack of Food: Never True Current Housing: I Have Housing Concerned About Future Housing: No Difficulty Paying Gas/Electric Bills: No Difficulty Paying for Meds: No Currently Unemployed: No Education: High School Diploma/GED Difficulty w/ Childcare or Family Care: No Living arrangements: alone Occupation/Education: retired Spiritual care concerns: No Meds Home Medications and Allergies Home Medications ?Medication ?Instructions ?Recorded ?Confirmed ?Type melatonin 5 mg capsule 5 mg PO QHS 08/29/22 12/02/24 History atorvastatin 40 mg tablet 40 mg PO DAILY 90 days #90 tabs 08/13/24 12/02/24 Rx clopidogrel 75 mg tablet (Plavix) 75 mg PO DAILY #90 tabs 08/13/24 12/02/24 Rx lisinopril 40 mg tablet 40 mg PO QAM 90 days #90 tabs 08/13/24 12/02/24 Rx escitalopram oxalate 10 mg tablet 10 mg PO HS #90 tabs 09/29/24 12/02/24 Rx pantoprazole 20 mg tablet,delayed 20 mg PO QAM PRN Indigestion #90 09/29/24 12/02/24 Rx release tabs carvedilol 12.5 mg tablet (Coreg) 12.5 mg PO Q12HR #60 tabs 11/21/24 12/02/24 Rx fluticasone fur. 100 mcg-umeclid 1 inh inhalation DAILY #60 ea 11/21/24 12/02/24 Rx 62.5 mcg-vilant 25 mcg inhalat.powder (Trelegy Ellipta) furosemide 40 mg tablet 40 mg PO QAM #14 tabs 11/21/24 12/02/24 Rx guaifenesin 600 mg tablet, 600 mg PO Q12H PRN congestion 11/21/24 12/02/24 History extended release 12 hr acetaminophen 500 mg capsule 500 mg PO Q4H PRN pain 12/02/24 12/02/24 History albuterol sulfate 1.25 mg/3 mL 2.5 mg inhalation Q6H 12/02/24 12/02/24 History solution for nebulization dronabinol 2.5 mg capsule 2.5 mg PO BID 12/02/24 12/02/24 History enoxaparin 40 mg/0.4 mL 40 mg subcut DAILY 12/02/24 12/02/24 History subcutaneous syringe ondansetron HCl 4 mg tablet 4 mg PO Q6H PRN nausea and vomiting 12/02/24 12/02/24 History potassium chloride 20 mEq 20 meq PO DAILY 12/02/24 12/02/24 History tablet,extended release(part/cryst) (Klor-Con M) Allergies Allergy/AdvReac Type Severity Reaction Status Date / Time Penicillins Allergy Severe BREATHING Verified 12/04/24 14:03 DIFFICULTY, SWELLING Vital Signs Vital Signs - 24 hr 12/08/24 20:00 12/08/24 20:55 12/08/24 20:57 Temperature 37.0 C Pulse Rate 96 94 94 Respiratory Rate 20 20 20 Blood Pressure 125/55 L Pulse Oximetry 93 99 Oxygen Delivery Nasal Cannula Oxygen Flow Rate 4 Fraction of Inspired Oxygen 36 12/08/24 21:16 12/08/24 21:24 12/09/24 06:00 Temperature 37.0 C 36.2 C L Pulse Rate 96 82 Respiratory Rate 20 16 Blood Pressure 125/55 L 137/45 L Pulse Oximetry 93 93 95 Oxygen Delivery Nasal Cannula Oxygen Flow Rate 3 Fraction of Inspired Oxygen 12/09/24 08:28 12/09/24 08:40 12/09/24 14:00 Temperature Pulse Rate 90 86 Respiratory Rate 20 20 Blood Pressure Pulse Oximetry 95 Oxygen Delivery Nasal Cannula Oxygen Flow Rate 3 Fraction of Inspired Oxygen 12/09/24 14:04 Temperature Pulse Rate 90 Respiratory Rate 20 Blood Pressure Pulse Oximetry 96 Oxygen Delivery Nasal Cannula Oxygen Flow Rate 4 Fraction of Inspired Oxygen 36 Exam 2 Narrative: Lungs are congested with occasional wheezes Cardiovascular regular rate rhythm no murmurs Abdomen soft nontender nondistended Extremities no edema Results Labs 12/08/24 05:51 12/08/24 05:51
[2024-12-09] MEDS: MELATONIN 5 MG TABLET PO (20:33)
[2024-12-09] MEDS: ACETAMINOPHEN 325 MG TABLET 650 MG PO (20:34)
[2024-12-09] MEDS: ESCITALOPRAM OXALATE 10 MG TABLET PO (20:34)
[2024-12-10] VITALS (10 sets, daily range): BP systolic 112–173; BP diastolic 61–64; PULSE 83–100; RESP 16–20; TEMP 35.8–36.3; O2SAT 92–97
[2024-12-10] MEDS: METOCLOPRAMIDE HCL 5 MG TABLET PO ×3 (05:36→17:12)
[2024-12-10] MEDS: ALBUTEROL SULFATE NEB 2.5 MG/3 ML INH INHALATION ×2 (07:52→13:46)
[2024-12-10] MEDS: ACETYLCYSTEINE 20% INHAL SOLN 800 MG/4 ML VIAL 200 MG INHALATION ×2 (07:52→13:46)
[2024-12-10] MEDS: FLUTICASONE/UMECLIDIN/VILANTER 100-62.5-25 MCG ELLIPTA 1 PUFF INHALATION (08:00)
--- NOTE | 2024-12-10 08:07 | P.PNIM_ITS ---
Progress Note: A&P Assessment and Plan (1) Acute respiratory failure: Code(s): J96.00 - Acute respiratory failure, unspecified whether with hypoxia or hypercapnia Status: Acute Assessment and Plan: 12/05 Seems to be responding to IV furosemide due to possible volume overload with diastolic dysfunction (EF 60-65%) Continue diuresis, monitor labs. Azithromycin + Ceftriaxone started 12/04, switched to PO Augmentin 12/06 As procalcitonin was 0.5 12/02, 12/06 switch to PO amoxiclav for possible recurrent post-obstructive pneumonia 12/07 Continue oxygen 3<4L LPM by NC and wean as tolerated --Sputum culture --Chest Xray --WBC trending up to 17 on levaquin. May be reactive to malignancy --Check Covid/Flu/RSV (2) Abnormal chest x-ray: Code(s): R93.89 - Abnormal findings on diagnostic imaging of other specified body structures Status: Acute Assessment and Plan: RLL lung mass, s/p RT, possible pulmonary edema, possible post-obstructive pneumonia 12/07 switch to po furosemide 40 mg bid (home dose was 40 mg daily) (3) Dizziness: Code(s): R42 - Dizziness and giddiness Status: Acute Assessment and Plan: 12/07 Unable to complete orthostatic BP due to refusal to stand due to dizziness, but BP farheen from supine to sitting position 12/07 Dronabinol was begun since admission 11/2024 and commonly causes dizziness, so discontinued this, continue PT/OT and await placement in rehab (4) Right lower lobe lung mass: Code(s): R91.8 - Other nonspecific abnormal finding of lung field Status: Acute Assessment and Plan: Chest x-ray shows stable right lower lobe masses and interstitial opacities in the peripheral in lower right lung - recently treated for PNA, received IV doxycycline and Rocephin but not febrile - patient has know leukocytosis. patient meet criteria for SIRS/Sepsis --Oncology consulted, will follow up outpatient (5) Moderate malnutrition: Code(s): E44.0 - Moderate protein-calorie malnutrition Status: Acute Assessment and Plan: Suspect related to malignancy --Encouraged PO intake, continue Ensure, encouraged to have friends or family bring outside food (6) Acute kidney injury: Code(s): N17.9 - Acute kidney failure, unspecified Status: Acute Assessment and Plan: Resolved (7) Chronic obstructive pulmonary disease: Code(s): J44.9 - Chronic obstructive pulmonary disease, unspecified Status: Acute Assessment and Plan: No oxygen at home - continues to cough - continue with current treatment regimen. - oxygen per nasal canula to keep sats above 90% - was on CPAP with FiO2 50% overnight 12/04-12/05, 12/05 on 3 LPM by NC with sats in 90s -On 4L today (8) Hyperkalemia: Code(s): E87.5 - Hyperkalemia Status: Acute Assessment and Plan: Resolved (9) Hypertension: Code(s): I10 - Essential (primary) hypertension Status: Acute Assessment and Plan: BP controlled (10) Anxiety: Code(s): F41.9 - Anxiety disorder, unspecified Status: Acute Assessment and Plan: Continue medications (11) Depression: Code(s): F32.A - Depression, unspecified Status: Acute Assessment and Plan: Continue medications (12) Dyslipidemia: Code(s): E78.5 - Hyperlipidemia, unspecified Status: Acute Assessment and Plan: Continue medications (13) Protein calorie malnutrition: Code(s): E46 - Unspecified protein-calorie malnutrition Status: Acute Subjective Date/time seen: 12/10/24 08:07 Interval history: Stable with 3L O2. Completed levaquin today but WBC still trending up Repeating chest x-ray. May need a repeat CT. Checking a viral swab Considering biopsy but may decide not to treat if malignancy Review of Systems Review of Systems: 12 systems were reviewed and are negativ e except for as per HPI. All systems reviewed & are unremarkable except as noted in HPI and below Constitutional: Constitutional: Reports as per HPI and Reports no additional constitutional complaints Exam Narrative: HEENT: PERRL, sclerae nonicteric, pharyngeal mucosa pink and intact NECK: No JVD, adenopathy, or thyromegaly CHEST: Coarse breath sounds with expiratory rhonchi, normal effort HEART: NL S1/S2, regular, no murmur ABDOMEN: BS+, soft, nontender, no mass, no bruits EXTREMITIES: No cyanosis, edema, or clubbing NEUROLOGIC: CN intact and symmetric to inspection, [id number] intact bilaterally MUSCULOSKELETAL: Tone and strength symmetric PSYCH: Alert. Oriented to person, place, and time Objective Data Vital Signs Vital Signs: Vital Signs - 24 hr 12/09/24 08:28 12/09/24 08:40 12/09/24 14:00 Temperature Pulse Rate 90 86 Respiratory Rate 20 20 Blood Pressure Pulse Oximetry 95 Oxygen Delivery Nasal Cannula Oxygen Flow Rate 3 Fraction of Inspired Oxygen 12/09/24 14:04 12/09/24 20:06 12/09/24 20:11 Temperature Pulse Rate 90 96 96 Respiratory Rate 20 20 Blood Pressure Pulse Oximetry 96 94 Oxygen Delivery Nasal Cannula Nasal Cannula Oxygen Flow Rate 4 4 Fraction of Inspired Oxygen 36 12/09/24 20:20 12/09/24 20:30 12/09/24 20:33 Temperature 97.8 F Pulse Rate 98 98 Respiratory Rate 20 20 Blood Pressure 158/76 H Pulse Oximetry 93 93 Oxygen Delivery Nasal Cannula Oxygen Flow Rate 5 Fraction of Inspired Oxygen 12/10/24 05:00 12/10/24 07:53 12/10/24 07:53 Temperature 97.4 F L Pulse Rate 83 88 Respiratory Rate 20 20 Blood Pressure 173/61 H Pulse Oximetry 97 93 Oxygen Delivery Nasal Cannula Oxygen Flow Rate 3 Fraction of Inspired Oxygen 12/10/24 08:03 Temperature Pulse Rate 89 Respiratory Rate 20 Blood Pressure Pulse Oximetry Oxygen Delivery Oxygen Flow Rate Fraction of Inspired Oxygen Intake/Output Intake/Output: Intake & Output 12/07/24 12/08/24 12/09/24 12/10/24 23:59 23:59 23:59 23:59 Intake Total 920 360 440 100 Output Total 300 700 250 Balance 920 60 -260 -150 Meds/Results Medications: Active Medications Generic Name Dose Route Start Last Admin Trade Name Freq PRN Reason Stop Dose Admin Acetaminophen 650 mg 12/01/24 22:27 12/09/24 20:34 Acetaminophen 325 Mg Tablet PO 650 mg Q6H PRN Administration Mild Pain (1-3) or Fever Acetylcysteine 200 mg 12/07/24 08:00 12/10/24 07:52 Acetylcysteine 20% Inhal Soln 800 Mg/4 Ml Vial INHALATION 200 mg Q6HRT LUCY Administration Albuterol 2.5 mg 12/02/24 08:00 12/10/24 07:52 Albuterol Sulfate Neb 2.5 Mg/3 Ml Inh INHALATION 2.5 mg Q6HRT LUCY Administration Atorvastatin Calcium 40 mg 12/02/24 09:00 12/09/24 08:43 Atorvastatin 40 Mg Tablet PO 40 mg DAILY LUCY Administration Clopidogrel Bisulfate 75 mg 12/02/24 09:00 12/09/24 08:42 Clopidogrel Bisulfate 75 Mg Tablet PO 75 mg DAILY LUCY Administration Enoxaparin Sodium 30 mg 12/09/24 09:00 12/09/24 08:43 Enoxaparin 30 Mg/0.3 Ml Syringe SUB-Q 30 mg DAILY LUCY Administration Escitalopram Oxalate 10 mg 12/02/24 21:00 12/09/24 20:34 Escitalopram Oxalate 10 Mg Tablet PO 10 mg HS LUCY Administration Fluticasone/Umeclidinium/Vilanterol 1 puff 12/02/24 08:00 12/10/24 08:00 Fluticasone/Umeclidin/Vilanter 100-62.5-25 Mcg Ellipta INHALATION 1 puff DAILYRT LUCY Administration Furosemide 40 mg 12/07/24 17:00 12/09/24 17:23 Furosemide 40 Mg Tablet PO 40 mg BID LUCY Administration Guaifenesin 600 mg 12/02/24 05:00 12/03/24 09:17 Guaifenesin 12 Hr 600 Mg Tabcr PO 600 mg Q12H PRN Administration congestion Guaifenesin 1,200 mg 12/08/24 21:00 12/09/24 20:33 Guaifenesin 12 Hr 600 Mg Tabcr PO 1,200 mg Q12HR LUCY Administration Levofloxacin 500 mg 12/06/24 09:00 12/09/24 08:42 Levofloxacin 500 Mg Tablet PO 12/10/24 11:00 500 mg DAILY LUCY Administration Melatonin 5 mg 12/02/24 21:00 12/09/24 20:33 Melatonin 5 Mg Tablet PO 5 mg QHS LUCY Administration Metoclopramide HCl 5 mg 12/08/24 11:30 12/10/24 05:36 Metoclopramide Hcl 5 Mg Tablet PO 5 mg TIDAC LUCY Administration Ondansetron HCl 4 mg 12/02/24 13:30 12/07/24 17:12 Ondansetron Hcl Odt 4 Mg Tablet PO 4 mg Q6H PRN Administration nausea and vomiting Pantoprazole Sodium 20 mg 12/02/24 05:00 12/07/24 12:22 Pantoprazole Sod Sesquihydrate 20 Mg Tab PO 20 mg QAM PRN Administration Indigestion Radiology Results: ITS Impressions Head CT 12/01/24 20:44 IMPRESSION: No acute intracranial process. Chest X-Ray 12/04/24 06:48 Impression: Worsening alveolar and interstitial pulmonary edema pattern. Correlate clinically for pneumonia. Underlying COPD or other chronic interstitial disease. Minimal left pleural effusion. Quality VTE Prophylaxis VTE prophylaxis: mechanical ordered Hospitalist MIPS Advance Care Plan I have confirmed that the patient's Advanced Care Plan is present, code status is documented, or surrogate decision maker is listed in patient medical record.: Yes Medication Reconciliation I have utilized all available resources to obtain, update and review the sander ents current medications (includes all prescriptions, OTC, herbals, cannabis, and nutritional supplements).: Yes
[2024-12-10] MEDS: guaiFENesin 12 HR 600 MG TABCR 1200 MG PO ×2 (09:19→20:15)
[2024-12-10] MEDS: FUROSEMIDE 40 MG TABLET PO ×2 (09:20→17:12)
[2024-12-10] MEDS: CLOPIDOGREL BISULFATE 75 MG TABLET PO (09:20)
[2024-12-10] MEDS: ATORVASTATIN 40 MG TABLET PO (09:20)
[2024-12-10] MEDS: ENOXAPARIN 30 MG/0.3 ML SYRINGE SUB-Q (09:20)
[2024-12-10 09:30] LABS: Hematocrit 38.4 % (37.0-47.0); Hemoglobin 12.0 g/dL (12.0-15.0); Immature Granulocyte Percent A 1.0 % (0-0.5); Lymphocytes Absolute Auto 1.21 K/mm3 (0.9-3.2); Mean Corpuscular HGB Conc 31.3 g/dl (32-36); Mean Corpuscular Hemoglobin 29.9 pg (26-34); Mean Corpuscular Volume 95.8 fl (80-100); Nucleated Red Blood Cells Absolute Auto 0.000 K/mm3 (0.0-0.012); Nucleated Red Blood Cells Perc 0.0 % (0.0-0.2); Platelet Count Result 238 k/mm3 (150-375); Red Blood Count 4.01 M/mm3 (4.2-5.4); White Blood Count 17.7 K/mm3 (4.5-10.0)
[2024-12-10 09:55] LABS: Alanine Aminotransferase 23 U/L (6-35); Albumin Level 3.5 g/dL (3.5-5.1); Alkaline Phosphatase 92 U/L (38-126); Anion Gap 12 mmol/L (4-12); Aspartate Amino Transferase 34 U/L (14-36); Bilirubin,Total 0.6 mg/dL (0.2-1.3); Blood Urea Nitrogen 37 mg/dL (7-17); Calcium 8.8 mg/dL (8.4-10.2); Carbon Dioxide 23 mmol/L (22-30); Chloride 103 mmol/L (98-107); Estimated CRCL calculation 23 ml/min; Estimated Glomerular Filt Rate 37; Glucose 119 mg/dL (65-110); Magnesium 2.2 mg/dL (1.6-2.3); Potassium 4.1 mmol/L (3.4-5.0); Sodium 138 mmol/L (137-145); Total Protein 6.9 g/dL (6.3-8.2)
[2024-12-10 10:06] LABS: CRP 13.2 mg/dL (<1.0)
[2024-12-10 16:50] LABS: Iron 43 ug/dL (37-170)
[2024-12-10 17:06] LABS: Percent Iron Saturation 25 % (20-50)
[2024-12-10 17:26] LABS: Ferritin 405.00 ng/mL (11.1-264)
[2024-12-10 19:13] LABS: Influenza A QL RT-PCR Negative (Negative); Influenza B QL RT-PCR Negative (Negative); RSV RNA, RT-PCR Negative (Negative); SARS-CoV-2 RNA PCR Negative (Negative)
[2024-12-10] MEDS: ACETAMINOPHEN 325 MG TABLET 650 MG PO (20:14)
[2024-12-10] MEDS: PANTOPRAZOLE SOD SESQUIHYDRATE 20 MG TAB PO (20:15)
[2024-12-10] MEDS: ESCITALOPRAM OXALATE 10 MG TABLET PO (20:15)
[2024-12-10] MEDS: MELATONIN 5 MG TABLET PO (20:15)
[2024-12-10] MEDS: ONDANSETRON HCL ODT 4 MG TABLET PO (20:15)
--- NOTE | 2024-12-10 23:44 | PCRCNOTE ---
Addendum entered by Florencio Chapman, DIE CAST TECHNICIAN 12/11/24 19:33: 12/11/24 0505 - Patient was agreeable to an attempt at collecting a sputum sample; 3% Sodium Chloride used to promote mobilization of secretions; sputum induction stopped at 0515 due to nausea; x2 oral meds found on her chest, RN informed. Original Note: Patient has refused all Respiratory treatments and therapies this pm, wanting sleep. She did, however, allow an Oxygen check. COPD, continuing on nasal cannula 3 L/min. Noted some apparent nausea, with her holding the vomit bag close, some retching but stating that she is ok.
[2024-12-11] VITALS (11 sets, daily range): BP systolic 98–127; BP diastolic 56–65; PULSE 63–106; RESP 14–20; TEMP 36.1–36.5; O2SAT 90–99
[2024-12-11] MEDS: METOCLOPRAMIDE HCL 5 MG TABLET PO ×2 (05:37→12:04)
[2024-12-11 05:58] LABS: Hematocrit 40.6 % (37.0-47.0); Hemoglobin 12.4 g/dL (12.0-15.0); Immature Granulocyte Percent A 1.0 % (0-0.5); Lymphocytes Absolute Auto 1.61 K/mm3 (0.9-3.2); Mean Corpuscular HGB Conc 30.5 g/dl (32-36); Mean Corpuscular Hemoglobin 29.8 pg (26-34); Mean Corpuscular Volume 97.6 fl (80-100); Nucleated Red Blood Cells Absolute Auto 0.000 K/mm3 (0.0-0.012); Nucleated Red Blood Cells Perc 0.0 % (0.0-0.2); Platelet Count Result 253 k/mm3 (150-375); Red Blood Count 4.16 M/mm3 (4.2-5.4); White Blood Count 17.9 K/mm3 (4.5-10.0)
[2024-12-11 07:15] LABS: Anion Gap 12 mmol/L (4-12); Blood Urea Nitrogen 43 mg/dL (7-17); Calcium 9.0 mg/dL (8.4-10.2); Carbon Dioxide 23 mmol/L (22-30); Chloride 103 mmol/L (98-107); Estimated CRCL calculation 21 ml/min; Estimated Glomerular Filt Rate 33; Glucose 109 mg/dL (65-110); Potassium 3.9 mmol/L (3.4-5.0); Sodium 138 mmol/L (137-145)
[2024-12-11] MEDS: guaiFENesin 12 HR 600 MG TABCR 1200 MG PO ×2 (08:26→20:50)
[2024-12-11] MEDS: ACETAMINOPHEN 325 MG TABLET 650 MG PO (08:26)
[2024-12-11] MEDS: FUROSEMIDE 40 MG TABLET PO (08:27)
[2024-12-11] MEDS: ATORVASTATIN 40 MG TABLET PO (08:27)
[2024-12-11] MEDS: CLOPIDOGREL BISULFATE 75 MG TABLET PO (08:27)
[2024-12-11] MEDS: ENOXAPARIN 30 MG/0.3 ML SYRINGE SUB-Q (08:40)
[2024-12-11] MEDS: ONDANSETRON HCL ODT 4 MG TABLET PO (08:42)
[2024-12-11] MEDS: ACETYLCYSTEINE 20% INHAL SOLN 800 MG/4 ML VIAL 200 MG INHALATION ×3 (08:50→20:07)
[2024-12-11] MEDS: ALBUTEROL SULFATE NEB 2.5 MG/3 ML INH INHALATION ×3 (08:50→20:07)
[2024-12-11] MEDS: FLUTICASONE/UMECLIDIN/VILANTER 100-62.5-25 MCG ELLIPTA 1 PUFF INHALATION (08:51)
--- NOTE | 2024-12-11 09:20 | PM.IMPN ---
Progress Note: A&P Assessment and Plan (1) Acute respiratory failure: Code(s): J96.00 - Acute respiratory failure, unspecified whether with hypoxia or hypercapnia Status: Acute Assessment and Plan: 12/05 Seems to be responding to IV furosemide due to possible volume overload with diastolic dysfunction (EF 60-65%) Continue diuresis, monitor labs. Azithromycin + Ceftriaxone started 12/04, switched to PO Augmentin 12/06 As procalcitonin was 0.5 12/02, 12/06 switch to PO amoxiclav for possible recurrent post-obstructive pneumonia 12/07 Continue oxygen 3<4L LPM by NC and wean as tolerated --Sputum culture --Chest Xray nonspecific --WBC trending up to 17 on levaquin, completed and continues to uptrend. May be reactive to malignancy --Covid/Flu/RSV --CT chest/abd/pelvis (2) Abnormal chest x-ray: Code(s): R93.89 - Abnormal findings on diagnostic imaging of other specified body structures Status: Acute Assessment and Plan: RLL lung mass, s/p RT, possible pulmonary edema, possible post-obstructive pneumonia 12/07 switch to po furosemide 40 mg bid (home dose was 40 mg daily) (3) Dizziness: Code(s): R42 - Dizziness and giddiness Status: Acute Assessment and Plan: 12/07 Unable to complete orthostatic BP due to refusal to stand due to dizziness, but BP farheen from supine to sitting position 12/07 Dronabinol was begun since admission 11/2024 and commonly causes dizziness, so discontinued this, continue PT/OT and await placement in rehab (4) Right lower lobe lung mass: Code(s): R91.8 - Other nonspecific abnormal finding of lung field Status: Acute Assessment and Plan: Chest x-ray shows stable right lower lobe masses and interstitial opacities in the peripheral in lower right lung - recently treated for PNA, received IV doxycycline and Rocephin but not febrile - patient has know leukocytosis. patient meet criteria for SIRS/Sepsis --Oncology consulted, will follow up outpatient (5) Moderate malnutrition: Code(s): E44.0 - Moderate protein-calorie malnutrition Status: Acute Assessment and Plan: Suspect related to malignancy --Encouraged PO intake, continue Ensure, encouraged to have friends or family bring outside food (6) Acute kidney injury: Code(s): N17.9 - Acute kidney failure, unspecified Status: Acute Assessment and Plan: Creatinine uptrending s/p 250ml yesterday. 500ml today urine studies pending, UA no evidence of infection (7) Chronic obstructive pulmonary disease: Code(s): J44.9 - Chronic obstructive pulmonary disease, unspecified Status: Acute Assessment and Plan: No oxygen at home - continues to cough - continue with current treatment regimen. - oxygen per nasal canula to keep sats above 90% - was on CPAP with FiO2 50% overnight 12/04-12/05, 12/[address] with sats in 90s -On 4L today (8) Hyperkalemia: Code(s): E87.5 - Hyperkalemia Status: Acute Assessment and Plan: Resolved (9) Hypertension: Code(s): I10 - Essential (primary) hypertension Status: Acute Assessment and Plan: BP controlled (10) Anxiety: Code(s): F41.9 - Anxiety disorder, unspecified Status: Acute Assessment and Plan: Continue medications (11) Depression: Code(s): F32.A - Depression, unspecified Status: Acute Assessment and Plan: Continue medications (12) Dyslipidemia: Code(s): E78.5 - Hyperlipidemia, unspecified Status: Acute Assessment and Plan: Continue medications (13) Protein calorie malnutrition: Code(s): E46 - Unspecified protein-calorie malnutrition Status: Acute (14) Elevated WBC count: Code(s): D72.829 - Elevated white blood cell count, unspecified Status: Acute Assessment and Plan: WBC trending up. Still on 3L. No dysuria --CT CAP today --UA pending Time Spent With Patient Time: 59 minutes Subjective Date/time seen: 12/11/24 09:20 Interval history: White count trending up, checking CT CAP [place], holding diuretics, give 500ml today. Not eating or drinking much Nonproductive cough, up from 3L<4L. Check CT CAP today Creatinine trending up, UA, Urine Na, Creatinine in process, check urine culture Considering outpatient biopsy but may decide not to treat if malignancy. Can follow up with Dr. Palomo if she decides to treat it Review of Systems Review of Systems: 12 systems were reviewed and are negative except for as per HPI. All systems reviewed & are unremarkable except as noted in HPI and below Constitutional: Constitutional: Reports as per HPI and Reports no additional constitutional complaints Exam Narrative: HEENT: PERRL, sclerae nonicteric, pharyngeal mucosa pink and intact NECK: No JVD, adenopathy, or thyromegaly CHEST: Coarse breath sounds with expiratory rhonchi, normal effort, decreased right lobes HEART: NL S1/S2, regular, no murmur ABDOMEN: BS+, soft, nontender, no mass, no bruits EXTREMITIES: No cyanosis, edema, or clubbing NEUROLOGIC: CN intact and symmetric to inspection, [id number] intact bilaterally MUSCULOSKELETAL: Tone and strength symmetric PSYCH: Alert. Oriented to person, place, and time Objective Data Vital Signs Vital Signs: Vital Signs - 24 hr 12/10/24 13:47 12/10/24 13:58 12/10/24 13:59 Temperature 96.5 F L Pulse Rate 92 98 92 Respiratory Rate 20 18 20 Blood Pressure 112/64 Pulse Oximetry 96 Oxygen Delivery Oxygen Flow Rate 12/10/24 20:00 12/10/24 21:47 12/10/24 23:41 Temperature 97 F L Pulse Rate 100 87 Respiratory Rate 16 20 Blood Pressure 119/61 Pulse Oximetry 93 93 92 Oxygen Delivery Nasal Cannula Nasal Cannula Oxygen Flow Rate 3 3 12/11/24 06:00 12/11/24 08:51 12/11/24 08:56 Temperature 97.7 F Pulse Rate 102 H 106 H Respiratory Rate 20 16 Blood Pressure 127/65 Pulse Oximetry 99 90 Oxygen Delivery Nasal Cannula Oxygen Flow Rate 3 12/11/24 08:59 Temperature Pulse Rate 100 Respiratory Rate 16 Blood Pressure Pulse Oximetry Oxygen Delivery Oxygen Flow Rate Intake/Output Intake/Output: Intake & Output 12/08/24 12/09/24 12/10/24 12/11/24 23:59 23:59 23:59 23:59 Intake Total 360 440 660 Output Total 300 700 900 300 Balance 60 -260 -240 -300 Meds/Results Medications: Active Medications Generic Name Dose Route Start Last Admin Trade Name Freq PRN Reason Stop Dose Admin Acetaminophen 650 mg 12/01/24 22:27 12/11/24 08:26 Acetaminophen 325 Mg Tablet PO 650 mg Q6H PRN Administration Mild Pain (1-3) or Fever Acetylcysteine 200 mg 12/07/24 08:00 12/11/24 08:50 Acetylcysteine 20% Inhal Soln 800 Mg/4 Ml Vial INHALATION 200 mg Q6HRT LUCY Administration Albuterol 2.5 mg 12/02/24 08:00 12/11/24 08:50 Albuterol Sulfate Neb 2.5 Mg/3 Ml Inh INHALATION 2.5 mg Q6HRT LUCY Administration Atorvastatin Calcium 40 mg 12/02/24 09:00 12/11/24 08:27 Atorvastatin 40 Mg Tablet PO 40 mg DAILY LUCY Administration Clopidogrel Bisulfate 75 mg 12/02/24 09:00 12/11/24 08:27 Clopidogrel Bisulfate 75 Mg Tablet PO 75 mg DAILY LUCY Administration Enoxaparin Sodium 30 mg 12/09/24 09:00 12/11/24 08:40 Enoxaparin 30 Mg/0.3 Ml Syringe SUB-Q 30 mg DAILY LUCY Administration Escitalopram Oxalate 10 mg 12/02/24 21:00 12/10/24 20:15 Escitalopram Oxalate 10 Mg Tablet PO 10 mg HS LUCY Administration Fluticasone/Umeclidinium/Vilanterol 1 puff 12/02/24 08:00 12/11/24 08:51 Fluticasone/Umeclidin/Vilanter 100-62.5-25 Mcg Ellipta INHALATION 1 puff DAILYRT LUCY Administration Furosemide 40 mg 12/07/24 17:00 12/11/24 08:27 Furosemide 40 Mg Tablet PO 40 mg BID LUCY Administration Guaifenesin 600 mg 12/02/24 05:00 12/03/24 09:17 Guaifenesin 12 Hr 600 Mg Tabcr PO 600 mg Q12H PRN Administration congestion Guaifenesin 1,200 mg 12/08/24 21:00 12/11/24 08:26 Guaifenesin 12 Hr 600 Mg Tabcr PO 1,200 mg Q12HR LUCY Administration Melatonin 5 mg 12/02/24 21:00 12/10/24 20:15 Melatonin 5 Mg Tablet PO 5 mg QHS LUCY Administration Metoclopramide HCl 5 mg 12/08/24 11:30 12/11/24 05:37 Metoclopramide Hcl 5 Mg Tablet PO 5 mg TIDAC LUCY Administration Ondansetron HCl 4 mg 12/02/24 13:30 12/11/24 08:42 Ondansetron Hcl Odt 4 Mg Tablet PO 4 mg Q6H PRN Administration nausea and vomiting Pantoprazole Sodium 20 mg 12/02/24 05:00 12/10/24 20:15 Pantoprazole Sod Sesquihydrate 20 Mg Tab PO 20 mg QAM PRN Administration Indigestion Sodium Chloride 6 ml 12/11/24 05:00 12/11/24 08:50 Sodium Chlor 3% 15 Ml Neb (Respiratory Therapy) INHALATION 12/13/24 05:01 Not Given DAILY@0500 PENDING SALE TO [facility] Radiology Results: ITS Impressions Head CT 12/01/24 20:44 IMPRESSION: No acute intracranial process. Chest X-Ray 12/10/24 18:49 IMPRESSION: Chronic interstitial lung disease with improved left-sided pleural effusion, as detailed above. Labs Labs: Laboratory Results - last 24 hr 12/10/24 12/10/24 12/10/24 09:19 09:20 18:18 WBC 17.7 H RBC 4.01 L Hgb 12.0 Hct 38.4 MCV 95.8 MCH 29.9 MCHC 31.3 L RDW 15.6 H Plt Count 238 MPV 9.6 Immature Gran % (Auto) 1.0 H Neut % (Auto) 84.2 H Lymph % (Auto) 6.8 L [place] % (Auto) 6.9 Eos % (Auto) 0.8 Baso % (Auto) 0.3 Lymph # (Auto) 1.21 [place] # (Auto) 1.2 H Eos # (Auto) 0.2 Baso # (Auto) 0.1 Abs Immat Gran (auto) 0.17 H Absolute Neuts (auto) 14.9 H Absolute Nucleated RBC 0.000 Nucleated RBC % 0.0 ESR 77 H Sodium 138 Potassium 4.1 Chloride 103 Carbon Dioxide 23 Anion Gap 12 BUN 37 H D Creatinine 1.40 H Estim Creat Clear Calc 23 Estimated GFR 37 L Glucose 119 H Calcium 8.8 Phosphorus 2.9 Cancelled Magnesium 2.2 Cancelled Iron 43 TIBC 173 L % Saturation 25 Ferritin 405.00 H Total Bilirubin 0.6 AST 34 ALT 23 Alkaline Phosphatase 92 C-Reactive Protein 13.2 H Total Protein 6.9 Albumin 3.5 Influenza A (RT-PCR) Negative Influenza B (RT-PCR) Negative RSV (RT-PCR) Negative SARS-CoV-2 RNA (RT-PCR) Negative 12/11/24 05:36 WBC 17.9 H RBC 4.16 L Hgb 12.4 Hct 40.6 MCV 97.6 MCH 29.8 MCHC 30.5 L RDW 15.8 H Plt Count 253 MPV 9.6 Immature Gran % (Auto) 1.0 H Neut % (Auto) 81.1 H Lymph % (Auto) 9.0 L [place] % (Auto) 7.7 Eos % (Auto) 0.8 Baso % (Auto) 0.4 Lymph # (Auto) 1.61 [place] # (Auto) 1.4 H Eos # (Auto) 0.1 Baso # (Auto) 0.1 Abs Immat Gran (auto) 0.17 H Absolute Neuts (auto) 14.5 H Absolute Nucleated RBC 0.000 Nucleated RBC % 0.0 ESR Sodium 138 Potassium 3.9 Chloride 103 Carbon Dioxide 23 Anion Gap 12 BUN 43 H Creatinine 1.54 H Estim Creat Clear Calc 21 Estimated GFR 33 L Glucose 109 Calcium 9.0 Phosphorus Magnesium Iron TIBC % Saturation Ferritin Total Bilirubin AST ALT Alkaline Phosphatase C-Reactive Protein Total Protein Albumin Influenza A (RT-PCR) Influenza B (RT-PCR) RSV (RT-PCR) SARS-CoV-2 RNA (RT-PCR) Quality VTE Prophylaxis VTE prophylaxis: mechanical ordered Hospitalist MIPS Advance Care Plan I have confirmed that the patient's Advanced Care Plan is present, code status is documented, or surrogate decision maker is listed in patient medical record.: Yes Medication Reconciliation I have utilized all available resources to obtain, update and review the patients current medications (includes all prescriptions, OTC, herbals, cannabis, and nutritional supplements).: Yes
[2024-12-11] MEDS: SODIUM CHLORIDE 0.9% IV 250 ML 100 ML IV CONT (09:55)
[2024-12-11] MEDS: ONDANSETRON HCL ODT 4 MG TABLET 8 MG PO (18:09)
[2024-12-11] MEDS: droNABinol (*CRX) 2.5 MG CAPSULE PO (18:09)
[2024-12-11] MEDS: ESCITALOPRAM OXALATE 10 MG TABLET PO (20:50)
[2024-12-11] MEDS: MELATONIN 5 MG TABLET PO (20:50)
--- NOTE | 2024-12-11 22:13 | PC.NURSE ---
UA to be obtained. Noted no urinary output since 5am 12/11. Pt states she has peed today and does not currently have to pee and is able to tell when she has to. Bladder scan performed. Greatest amount 175ml. Pt instructed to call with urination so we are able to obtain urine specimen. Purewick in place.
[2024-12-12] VITALS (12 sets, daily range): BP systolic 101–142; BP diastolic 45–56; PULSE 66–104; RESP 16–18; TEMP 36.1–36.6; O2SAT 94–100
[2024-12-12] MEDS: SODIUM CHLOR 3% 15 ML NEB (RESPIRATORY THERAPY) 6 ML INHALATION (05:29)
[2024-12-12 06:13] LABS: Hematocrit 39.3 % (37.0-47.0); Hemoglobin 11.7 g/dL (12.0-15.0); Immature Granulocyte Percent A 0.9 % (0-0.5); Lymphocytes Absolute Auto 1.38 K/mm3 (0.9-3.2); Mean Corpuscular HGB Conc 29.8 g/dl (32-36); Mean Corpuscular Hemoglobin 29.8 pg (26-34); Mean Corpuscular Volume 100.0 fl (80-100); Nucleated Red Blood Cells Absolute Auto 0.060 K/mm3 (0.0-0.012); Nucleated Red Blood Cells Perc 0.3 % (0.0-0.2); Platelet Count Result 236 k/mm3 (150-375); Red Blood Count 3.93 M/mm3 (4.2-5.4); White Blood Count 18.3 K/mm3 (4.5-10.0)
[2024-12-12 06:51] LABS: Anion Gap 13 mmol/L (4-12); Blood Urea Nitrogen 50 mg/dL (7-17); Calcium 8.8 mg/dL (8.4-10.2); Carbon Dioxide 21 mmol/L (22-30); Chloride 106 mmol/L (98-107); Estimated CRCL calculation 19 ml/min; Estimated Glomerular Filt Rate 29; Glucose 112 mg/dL (65-110); Potassium 3.7 mmol/L (3.4-5.0); Sodium 140 mmol/L (137-145)
[2024-12-12] MEDS: ALBUTEROL SULFATE NEB 2.5 MG/3 ML INH INHALATION ×3 (08:13→20:54)
[2024-12-12] MEDS: FLUTICASONE/UMECLIDIN/VILANTER 100-62.5-25 MCG ELLIPTA 1 PUFF INHALATION (08:14)
[2024-12-12] MEDS: ACETYLCYSTEINE 20% INHAL SOLN 800 MG/4 ML VIAL 200 MG INHALATION ×3 (08:14→20:54)
[2024-12-12] MEDS: ATORVASTATIN 40 MG TABLET PO (08:28)
[2024-12-12] MEDS: droNABinol (*CRX) 2.5 MG CAPSULE PO ×2 (08:28→17:25)
[2024-12-12] MEDS: PANTOPRAZOLE SOD SESQUIHYDRATE 20 MG TAB PO (08:28)
[2024-12-12] MEDS: CLOPIDOGREL BISULFATE 75 MG TABLET PO (08:28)
[2024-12-12] MEDS: guaiFENesin 12 HR 600 MG TABCR 1200 MG PO ×2 (08:28→20:36)
[2024-12-12] MEDS: ENOXAPARIN 30 MG/0.3 ML SYRINGE SUB-Q (08:35)
[2024-12-12 08:45] LABS: Add Urine Microscopic? NO; Appearance Urine Clear (Clear); Glucose Urine UA Negative (Negative); Leukocyte Esterase Ur Negative LEU/UL (Negative); Nitrate Urine Negative (Negative); Specific Grav Ur 1.020 (1.001-1.035)
[2024-12-12] MEDS: SODIUM CHLORIDE 0.9% IV 500 ML 100 ML IV CONT (17:25)
[2024-12-12] MEDS: ONDANSETRON HCL ODT 4 MG TABLET 8 MG PO (17:25)
[2024-12-12] MEDS: ESCITALOPRAM OXALATE 10 MG TABLET PO (20:36)
[2024-12-12] MEDS: MELATONIN 5 MG TABLET PO (20:37)
[2024-12-12] MEDS: CLINDAMYCIN 600 MG/D5W 50 ML 600 MG/50 ML PIGGYBACK 100 MG IVPB (23:31)
[2024-12-13] VITALS (22 sets, daily range): BP systolic 134–149; BP diastolic 49–74; PULSE 80–107; RESP 16–24; TEMP 36.5–36.7; O2SAT 82–99
[2024-12-13] MEDS: ALBUTEROL SULFATE NEB 2.5 MG/3 ML INH INHALATION ×4 (02:03→20:23)
--- NOTE | 2024-12-13 04:49 | PCRCNOTE ---
pt refused use of NIV and requested for it to be removed from the room; RT informed the pt that it has to remain in the room until the order is cancelled
[2024-12-13] MEDS: SODIUM CHLOR 3% 15 ML NEB (RESPIRATORY THERAPY) 6 ML INHALATION (05:35)
[2024-12-13] MEDS: ONDANSETRON HCL ODT 4 MG TABLET 8 MG PO ×2 (06:24→18:26)
--- NOTE | 2024-12-13 06:25 | PCRCNOTE ---
pt was unable to submit a sputum sample
[2024-12-13 06:40] LABS: Hematocrit 38.3 % (37.0-47.0); Hemoglobin 11.6 g/dL (12.0-15.0); Immature Granulocyte Percent A 0.8 % (0-0.5); Lymphocytes Absolute Auto 1.26 K/mm3 (0.9-3.2); Mean Corpuscular HGB Conc 30.3 g/dl (32-36); Mean Corpuscular Hemoglobin 29.6 pg (26-34); Mean Corpuscular Volume 97.7 fl (80-100); Nucleated Red Blood Cells Absolute Auto 0.000 K/mm3 (0.0-0.012); Nucleated Red Blood Cells Perc 0.0 % (0.0-0.2); Platelet Count Result 230 k/mm3 (150-375); Red Blood Count 3.92 M/mm3 (4.2-5.4); White Blood Count 19.2 K/mm3 (4.5-10.0)
[2024-12-13 06:52] LABS: Anion Gap 14 mmol/L (4-12); Blood Urea Nitrogen 52 mg/dL (7-17); Calcium 8.6 mg/dL (8.4-10.2); Carbon Dioxide 19 mmol/L (22-30); Chloride 110 mmol/L (98-107); Estimated CRCL calculation 21 ml/min; Estimated Glomerular Filt Rate 33; Glucose 96 mg/dL (65-110); Potassium 3.3 mmol/L (3.4-5.0); Sodium 143 mmol/L (137-145)
[2024-12-13] MEDS: CLINDAMYCIN 600 MG/D5W 50 ML 600 MG/50 ML PIGGYBACK 100 MG IVPB (07:41)
[2024-12-13] MEDS: CLOPIDOGREL BISULFATE 75 MG TABLET PO (08:06)
[2024-12-13] MEDS: droNABinol (*CRX) 2.5 MG CAPSULE PO ×2 (08:06→17:10)
[2024-12-13] MEDS: guaiFENesin 12 HR 600 MG TABCR 1200 MG PO ×2 (08:06→21:13)
[2024-12-13] MEDS: ENOXAPARIN 30 MG/0.3 ML SYRINGE SUB-Q (08:06)
[2024-12-13] MEDS: ATORVASTATIN 40 MG TABLET PO (08:06)
[2024-12-13] MEDS: ACETYLCYSTEINE 20% INHAL SOLN 800 MG/4 ML VIAL 200 MG INHALATION ×3 (08:28→20:24)
[2024-12-13] MEDS: FLUTICASONE/UMECLIDIN/VILANTER 100-62.5-25 MCG ELLIPTA 1 PUFF INHALATION (08:28)
[2024-12-13] MEDS: BENZOCAINE/MENTHOL (*BKC) 18 EA LOZENGE 1 LOZENGE PO (12:16)
--- NOTE | 2024-12-13 12:51 | P.PNIM_ITS ---
Progress Note: A&P Assessment and Plan (1) Hospital-acquired pneumonia: Code(s): J18.9 - Pneumonia, unspecified organism; Y95 - Nosocomial condition Status: Acute Assessment and Plan: CT concerning for pneumonia with increased oxygen requirements No LE edema or leg pain, no chest pain --Started clindamycin last night, change to meropenem today --CBC, CRP, ESR in AM (2) Acute respiratory failure: Code(s): J96.00 - Acute respiratory failure, unspecified whether with hypoxia or hypercapnia Status: Acute Assessment and Plan: 12/05 Seems to be responding to IV furosemide due to possible volume overload with diastolic dysfunction (EF 60-65%) Continue diuresis, monitor labs. Azithromycin + Ceftriaxone started 12/04, switched to PO Augmentin 12/06 As procalcitonin was 0.5 12/02, 12/06 switch to PO amoxiclav for possible recurrent post-obstructive pneumonia 12/04-12/13 WBC trending up on levaquin, completed and continues to uptrend. May be reactive to malignancy vs new infection No oxygen at baseline prior to admission. Covid/Flu/RSV negative 12/12 12/11 Chest Xray Chronic interstitial lung disease with improved left-sided pleural effusion, as detailed above. 12/12 CT chest/abd/pelvis CHEST: 1. Hypodensity seen in the right lower lobe unchanged from previous examination which is most likely a mass. Pneumonia cannot be excluded. Another smaller density is seen just above the mentioned previously mass which also may be a mass or focal pneumonia. Follow-up to resolution and further evaluation advised. 2. Thickening of the septa in the right upper and lower lobe which may indicate pneumonitis versus edema. Follow-up advised. 3. Right hilar and mediastinal lymphadenopathy. 4. Underlying severe emphysematous changes. 5. Trace of pericardial effusion ABDOMEN/PELVIS: 1. No evidence of appendicitis, diverticulitis or intestinal obstruction. 2. Slightly dilated left renal pelvis with thickening of the wall which may indicate ascending pyelonephritis. Clinical correlation advised. 3. Severe atherosclerotic changes with slight aneurysmal dilatation seen in the distal aorta measuring 2.8 cm. PLAN --Increasing oxygen requirements 3<4<5L LPM by NC. Wean as tolerated --Sputum culture if able to obtain, cough has remained nonproductive or clear --Antibiotics for pneumonia, discussed with Dr. Bañuelos --Patient refused vest treatments (3) Abnormal chest x-ray: Code(s): R93.89 - Abnormal findings on diagnostic imaging of other specified body structures Status: Acute Assessment and Plan: RLL lung mass, s/p RT, possible pulmonary edema, possible post-obstructive pneumonia 12/07 switch to po furosemide 40 mg bid (home dose was 40 mg daily), furosemide on hold for CARINA (4) Dizziness: Code(s): R42 - Dizziness and giddiness Status: Acute Assessment and Plan: 12/07 Unable to complete orthostatic BP due to refusal to stand due to dizziness, but BP farheen from supine to sitting position 12/07 Dronabinol was begun since admission 11/2024 and commonly causes dizziness, so discontinued this. Reported frequent nausea so restarted and no change to nausea -- continue PT/OT --Stop dronabinol --Schedule metoclopramide TID before meals, continue zofran prn (5) Right lower lobe lung mass: Code(s): R91.8 - Other nonspecific abnormal finding of lung field Status: Acute Assessment and Plan: Chest x-ray shows stable right lower lobe masses and interstitial opacities in the peripheral in lower right lung - recently treated for PNA, received IV doxycycline and Rocephin but not febrile - patient has know leukocytosis. patient meet criteria for SIRS/Sepsis --Oncology consulted, will follow up outpatient Considering outpatient biopsy but may decide not to treat if malignancy. Can follow up with Dr. Palomo if she decides to treat it. (6) Moderate malnutrition: Code(s): E44.0 - Moderate protein-calorie malnutrition Status: Acute Assessment and Plan: Suspect related to malignancy --Encouraged PO intake, continue Ensure, encouraged to have friends or family bring outside food (7) Acute kidney injury: Code(s): N17.9 - Acute kidney failure, unspecified Status: Acute Assessment and Plan: Creatinine uptrending s/p 250ml yesterday. 500ml today 12/12 urine studies pending, UA no evidence of infection --Concern for acute pyelonephritis on CT but no dysuria and UA was negative. Sent Urine Culture, follow results (8) Chronic obstructive pulmonary disease: Code(s): J44.9 - Chronic obstructive pulmonary disease, unspecified Status: Acute Assessment and Plan: No oxygen at home, increasing O2 requirements - continues to cough - continue with current treatment regimen. - oxygen per nasal canula to keep sats above 90% - CPAP hs -Treatment of respiratory failure as noted (9) Hyperkalemia: Code(s): E87.5 - Hyperkalemia Status: Acute Assessment and Plan: Potassium 3.3 give 20meq (10) Hypertension: Code(s): I10 - Essential (primary) hypertension Status: Acute Assessment and Plan: BP controlled (11) Anxiety: Code(s): F41.9 - Anxiety disorder, unspecified Status: Acute Assessment and Plan: Continue medications (12) Depression: Code(s): F32.A - Depression, unspecified Status: Acute Assessment and Plan: Continue medications (13) Dyslipidemia: Code(s): E78.5 - Hyperlipidemia, unspecified Status: Acute Assessment and Plan: Continue medications (14) Protein calorie malnutrition: Code(s): E46 - Unspecified protein-calorie malnutrition Status: Acute (15) Elevated WBC count: Code(s): D72.829 - Elevated white blood cell count, unspecified Status: Acute Assessment and Plan: WBC trending up. Still on 3L. No dysuria --CT CAP 12/12 possible pneumonia or acute pyelonephritis --UA negative. Urine culture pending, added with findings of acute pyelonephritis despite negative UA Time Spent With Patient Time: 58 minutes Subjective Date/time seen: 12/13/24 12:51 Interval history: White count trending up, has a sore throat with white/yellow plaques. Clotrimazole lozenges & chloreseptic spray Nauseated all day, zofran isn't helping much. Start reglan. Consider zyprexa at bedtime CARINA, holding diuretics, give 500ml today. Not eating or drinking much Nonproductive cough, up from 3L<4L<99% on 5L [place] to 82-87 reported this morning. Wean O2 if possible. Check CT CAP concerning for pneumonitis vs pneumonia. Also possibly ascending pyelonephritis but no dysuria Meropenem--talk to pharmacy with penicillin allergy and is safe to give Discussed with pulmonary, Dr. Bañuelos on the phone. Checking MRSA, strep Review of Systems Review of Systems: 12 systems were reviewed and are negativ e except for as per HPI. All systems reviewed & are unremarkable except as noted in HPI and below Constitutional: Constitutional: Reports as per HPI and Reports no additional constitutional complaints Exam Narrative: HEENT: PERRL, sclerae nonicteric, pharyngeal mucosa white plaques to tongue and roof of mouth NECK: No JVD, adenopathy, or thyromegaly CHEST: Coarse breath sounds with expiratory rhonchi, normal effort, decreased right lobes HEART: NL S1/S2, regular, no murmur ABDOMEN: BS+, soft, nontender, no mass, no bruits EXTREMITIES: No cyanosis, edema, or clubbing NEUROLOGIC: CN intact and symmetric to inspection, [id number] intact bilaterally MUSCULOSKELETAL: Tone and strength symmetric PSYCH: Alert. Oriented to person, place, and time Objective Data Vital Signs Vital Signs: Vital Signs - 24 hr 12/12/24 14:15 12/12/24 14:40 12/12/24 14:56 Temperature 97.0 F L Pulse Rate 99 104 H 104 H Respiratory Rate 18 18 18 Blood Pressure 142/55 H Pulse Oximetry 100 Oxygen Delivery Oxygen Flow Rate 12/12/24 20:00 12/12/24 20:55 12/12/24 20:56 Temperature Pulse Rate 66 Respiratory Rate 18 Blood Pressure 129/48 L Pulse Oximetry 95 Oxygen Delivery Nasal Cannula Oxygen Flow Rate 3 12/12/24 21:07 12/12/24 21:10 12/13/24 02:06 Temperature 97.2 F L Pulse Rate 85 70 86 Respiratory Rate 16 18 16 Blood Pressure 131/45 L Pulse Oximetry 100 Oxygen Delivery Oxygen Flow Rate 12/13/24 02:14 12/13/24 04:45 12/13/24 05:35 Temperature Pulse Rate 87 84 Respiratory Rate 16 16 Blood Pressure Pulse Oximetry 94 Oxygen Delivery Nasal Cannula Oxygen Flow Rate 5 12/13/24 05:45 12/13/24 06:00 12/13/24 07:54 Temperature 97.7 F Pulse Rate 89 83 Respiratory Rate 16 18 Blood Pressure 143/49 H Pulse Oximetry 95 91 Oxygen Delivery Nasal Cannula Oxygen Flow Rate 5 12/13/24 08:31 12/13/24 08:31 12/13/24 08:45 Temperature Pulse Rate 84 80 Respiratory Rate 20 20 Blood Pressure Pulse Oximetry 99 Oxygen Delivery Nasal Cannula Oxygen Flow Rate 5 Intake/Output Intake/Output: Intake & Output 12/10/24 12/11/24 12/12/24 07/12/25 23:59 23:59 23:59 23:59 Intake Total 660 240 270 970 Output Total 900 300 100 200 Balance -240 -60 170 770 Meds/Results Medications: Active Medications Generic Name Dose Route Start Last Admin Trade Name Freq PRN Reason Stop Dose Admin Acetaminophen 650 mg 12/01/24 22:27 12/11/24 08:26 Acetaminophen 325 Mg Tablet PO 650 mg Q6H PRN Administration Mild Pain (1-3) or Fever Acetylcysteine 200 mg 12/07/24 08:00 12/13/24 08:28 Acetylcysteine 20% Inhal Soln 800 Mg/4 Ml Vial INHALATION 200 mg Q6HRT LUCY Administration Albuterol 2.5 mg 12/02/24 08:00 12/13/24 08:28 Albuterol Sulfate Neb 2.5 Mg/3 Ml Inh INHALATION 2.5 mg Q6HRT LUCY Administration Atorvastatin Calcium 40 mg 12/02/24 09:00 12/13/24 08:06 Atorvastatin 40 Mg Tablet PO 40 mg DAILY LUCY Administration Benzocaine 1 lozenge 12/13/24 11:47 12/13/24 12:16 Benzocaine/Menthol (*Bkc) 18 Ea Lozenge PO 1 lozenge PRN PRN Administration Sore Throat Clopidogrel Bisulfate 75 mg 12/02/24 09:00 12/13/24 08:06 Clopidogrel Bisulfate 75 Mg Tablet PO 75 mg DAILY LUCY Administration Clotrimazole 10 mg 12/13/24 15:00 Clotrimazole 10 Mg Troc PO 5 TIMES DAILY [facility] Dronabinol 2.5 mg 12/11/24 17:00 12/13/24 08:06 Dronabinol (*Crx) 2.5 Mg Capsule PO 2.5 mg BID LUCY Administration Enoxaparin Sodium 30 mg 12/09/24 09:00 12/13/24 08:06 Enoxaparin 30 Mg/0.3 Ml Syringe SUB-Q 30 mg DAILY LUCY Administration Escitalopram Oxalate 10 mg 12/02/24 21:00 12/12/24 20:36 Escitalopram Oxalate 10 Mg Tablet PO 10 mg HS LUCY Administration Fluticasone/Umeclidinium/Vilanterol 1 puff 12/02/24 08:00 12/13/24 08:28 Fluticasone/Umeclidin/Vilanter 100-62.5-25 Mcg Ellipta INHALATION 1 puff DAILYRT LUCY Administration Furosemide 40 mg 12/07/24 17:00 12/11/24 08:27 Furosemide 40 Mg Tablet PO 40 mg BID LUCY Administration Guaifenesin 600 mg 12/02/24 05:00 12/03/24 09:17 Guaifenesin 12 Hr 600 Mg Tabcr PO 600 mg Q12H PRN Administration congestion Guaifenesin 1,200 mg 12/08/24 21:00 12/13/24 08:06 Guaifenesin 12 Hr 600 Mg Tabcr PO 1,200 mg Q12HR LUCY Administration Melatonin 5 mg 12/02/24 21:00 12/12/24 20:37 Melatonin 5 Mg Tablet PO 5 mg QHS LUCY Administration Ondansetron HCl 4 mg 12/02/24 13:30 12/11/24 08:42 Ondansetron Hcl Odt 4 Mg Tablet PO 4 mg Q6H PRN Administration nausea and vomiting Ondansetron HCl 8 mg 12/11/24 19:00 12/13/24 06:24 Ondansetron Hcl Odt 4 Mg Tablet PO 8 mg Q12H LUCY Administration Pantoprazole Sodium 20 mg 12/02/24 05:00 12/12/24 08:28 Pantoprazole Sod Sesquihydrate 20 Mg Tab PO 20 mg QAM PRN Administration Indigestion Radiology Results: ITS Impressions Head CT 12/01/24 20:44 IMPRESSION: No acute intracranial process. Chest X-Ray 12/10/24 18:49 IMPRESSION: Chronic interstitial lung disease with improved left-sided pleural effusion, as detailed above. Chest/Abdomen/Pelvis CT 12/12/24 15:41 IMPRESSION: CHEST: 1. Hypodensity seen in the right lower lobe unchanged from previous examination which is most likely a mass. Pneumonia cannot be excluded. Another smaller density is seen just above the mentioned previously mass which also may be a mass or focal pneumonia. Follow-up to resolution and further evaluation advised. 2. Thickening of the septa in the right upper and lower lobe which may indicate pneumonitis versus edema. Follow-up advised. 3. Right hilar and mediastinal lymphadenopathy. 4. Underlying severe emphysematous changes. 5. Trace of pericardial effusion ABDOMEN/PELVIS: 1. No evidence of appendicitis, diverticulitis or intestinal obstruction. 2. Slightly dilated left renal pelvis with thickening of the wall which may indicate ascending pyelonephritis. Clinical correlation advised. 3. Severe atherosclerotic changes with slight aneurysmal dilatation seen in the distal aorta measuring 2.8 cm. Labs Labs: Laboratory Results - last 24 hr 12/13/24 06:14 WBC 19.2 H RBC 3.92 L Hgb 11.6 L Hct 38.3 MCV 97.7 MCH 29.6 MCHC 30.3 L RDW 15.9 H Plt Count 230 MPV 9.8 Immature Gran % (Auto) 0.8 H Neut % (Auto) 85.1 H Lymph % (Auto) 6.6 L Coal % (Auto) 6.5 Eos % (Auto) 0.7 Baso % (Auto) 0.3 Lymph # (Auto) 1.26 Coal # (Auto) 1.2 H Eos # (Auto) 0.1 Baso # (Auto) 0.1 Abs Immat Gran (auto) 0.16 H Absolute Neuts (auto) 16.3 H Absolute Nucleated RBC 0.000 Nucleated RBC % 0.0 Sodium 143 Potassium 3.3 L Chloride 110 H Carbon Dioxide 19 L Anion Gap 14 H BUN 52 H Creatinine 1.53 H Estim Creat Clear Calc 21 Estimated GFR 33 L Glucose 96 Calcium 8.6 Quality VTE Prophylaxis VTE prophylaxis: mechanical ordered Hospitalist [facility] Advance Care Plan I have confirmed that the patient's Advanced Care Plan is present, code status is documented, or surrogate decision maker is listed in patient medical record.: Yes Medication Reconciliation I have utilized all available resources to obtain, update and review the patients current medications (includes all prescriptions, OTC, herbals, cannabis, and nutritional supplements).: Yes
[2024-12-13] MEDS: CLOTRIMAZOLE 10 MG TROC PO ×3 (14:14→21:14)
[2024-12-13 14:34] LABS: Strep Group A RT-PCR NOT DETECTED (Negative)
[2024-12-13 15:22] LABS: MRSA (PCR) NOT DETECTED (NOT DETECTE)
[2024-12-13] MEDS: MEROPENEM 1 GM in SODIUM CHLORIDE 0.9% IV 100 ML 200 ML IVPB (17:09)
[2024-12-13] MEDS: POTASSIUM CHLORIDE 20 MEQ ER TABLET PO (17:10)
[2024-12-13] MEDS: METOCLOPRAMIDE HCL INJ 10 MG/2 ML VIAL 5 MG IV PUSH (17:16)
[2024-12-13] MEDS: MELATONIN 5 MG TABLET PO (21:13)
[2024-12-13] MEDS: ESCITALOPRAM OXALATE 10 MG TABLET PO (21:13)
[2024-12-14] VITALS (10 sets, daily range): BP systolic 125–152; BP diastolic 43–49; PULSE 52–96; RESP 16–22; TEMP 36.3–36.8; O2SAT 89–99
--- NOTE | 2024-12-14 03:00 | PCRCNOTE ---
Pt declined 0200 treatment
[2024-12-14] MEDS: MEROPENEM 1 GM in SODIUM CHLORIDE 0.9% IV 100 ML 200 ML IVPB ×2 (03:49→16:53)
[2024-12-14] MEDS: METOCLOPRAMIDE HCL INJ 10 MG/2 ML VIAL 5 MG IV PUSH (05:35)
[2024-12-14] MEDS: ONDANSETRON HCL ODT 4 MG TABLET 8 MG PO ×2 (06:25→17:58)
[2024-12-14 06:32] LABS: Hematocrit 36.9 % (37.0-47.0); Hemoglobin 11.5 g/dL (12.0-15.0); Immature Granulocyte Percent A 1.6 % (0-0.5); Lymphocytes Absolute Auto 1.21 K/mm3 (0.9-3.2); Mean Corpuscular HGB Conc 31.2 g/dl (32-36); Mean Corpuscular Hemoglobin 30.1 pg (26-34); Mean Corpuscular Volume 96.6 fl (80-100); Nucleated Red Blood Cells Absolute Auto 0.000 K/mm3 (0.0-0.012); Nucleated Red Blood Cells Perc 0.0 % (0.0-0.2); Platelet Count Result 200 k/mm3 (150-375); Red Blood Count 3.82 M/mm3 (4.2-5.4); White Blood Count 19.4 K/mm3 (4.5-10.0)
[2024-12-14 06:56] LABS: Alanine Aminotransferase 15 U/L (6-35); Albumin Level 3.2 g/dL (3.5-5.1); Alkaline Phosphatase 105 U/L (38-126); Anion Gap 11 mmol/L (4-12); Aspartate Amino Transferase 40 U/L (14-36); Bilirubin,Total 0.5 mg/dL (0.2-1.3); Blood Urea Nitrogen 45 mg/dL (7-17); Calcium 8.7 mg/dL (8.4-10.2); Carbon Dioxide 23 mmol/L (22-30); Chloride 112 mmol/L (98-107); Estimated CRCL calculation 24 ml/min; Estimated Glomerular Filt Rate 40; Glucose 98 mg/dL (65-110); Potassium 3.2 mmol/L (3.4-5.0); Sodium 146 mmol/L (137-145); Total Protein 6.5 g/dL (6.3-8.2)
[2024-12-14 07:08] LABS: CRP 14.6 mg/dL (<1.0)
[2024-12-14] MEDS: ENOXAPARIN 30 MG/0.3 ML SYRINGE SUB-Q (08:14)
[2024-12-14] MEDS: ATORVASTATIN 40 MG TABLET PO (08:15)
[2024-12-14] MEDS: droNABinol (*CRX) 2.5 MG CAPSULE PO (08:15)
[2024-12-14] MEDS: CLOPIDOGREL BISULFATE 75 MG TABLET PO (08:15)
[2024-12-14] MEDS: guaiFENesin 12 HR 600 MG TABCR 1200 MG PO ×2 (08:15→20:12)
[2024-12-14] MEDS: CLOTRIMAZOLE 10 MG TROC PO ×4 (08:15→20:12)
--- NOTE | 2024-12-14 09:13 | P.PNIM_ITS ---
Progress Note: A&P Assessment and Plan (1) Acute respiratory failure: Code(s): J96.00 - Acute respiratory failure, unspecified whether with hypoxia or hypercapnia Status: Acute Assessment and Plan: 12/05 Seems to be responding to IV furosemide due to possible volume overload with diastolic dysfunction (EF 60-65%) Continue diuresis, monitor labs. Azithromycin + Ceftriaxone started 12/04, switched to PO Augmentin 12/06 As procalcitonin was 0.5 12/02, 12/06 switch to PO amoxiclav for possible recurrent post-obstructive pneumonia 12/04-12/13 WBC trending up on levaquin, completed and continues to uptrend. May be reactive to malignancy vs new infection No oxygen at baseline prior to admission. Covid/Flu/RSV negative 12/12 D-dimer <0.27 and on Lovenox for DVT prophylaxis Troponin elevated to 0.071 but likely demand, trending 12/11 Chest Xray Chronic interstitial lung disease with improved left-sided pleural effusion, as detailed above. 12/12 CT chest/abd/pelvis CHEST: 1. Hypodensity seen in the right lower lobe unchanged from previous examination which is most likely a mass. Pneumonia cannot be excluded. Another smaller density is seen just above the mentioned previously mass which also may be a mass or focal pneumonia. Follow-up to resolution and further evaluation advised. 2. Thickening of the septa in the right upper and lower lobe which may indicate pneumonitis versus edema. Follow-up advised. 3. Right hilar and mediastinal lymphadenopathy. 4. Underlying severe emphysematous changes. 5. Trace of pericardial effusion ABDOMEN/PELVIS: 1. No evidence of appendicitis, diverticulitis or intestinal obstruction. 2. Slightly dilated left renal pelvis with thickening of the wall which may indicate ascending pyelonephritis. Clinical correlation advised. 3. Severe atherosclerotic changes with slight aneurysmal dilatation seen in the distal aorta measuring 2.8 cm. PLAN --Increasing oxygen requirements 3<4<5L LPM by NC. Wean as tolerated --Sputum culture if able to obtain, cough has remained nonproductive or clear --Antibiotics for pneumonia, discussed with Dr. Bañuelos --Patient does not wish to continue vest treatments due to nausea (2) Elevated WBC count: Code(s): D72.829 - Elevated white blood cell count, unspecified Status: Acute Assessment and Plan: WBC still 19, up to 5L. No dysuria --CT CAP 12/12 possible pneumonia or acute pyelonephritis --UA negative. Urine culture pending 12/12, added with findings of acute pyelonephritis despite negative UA. Also asymptomatic (3) Hospital-acquired pneumonia: Code(s): J18.9 - Pneumonia, unspecified organism; Y95 - Nosocomial condition Status: Acute Assessment and Plan: CT concerning for pneumonia with increased oxygen requirements No LE edema or leg pain, no chest pain --Started clindamycin 12/12, changed to meropenem today 12/13 since O2 requirements increased --Follow CBC, CRP, ESR. Procalcitonin normal --MRSA swab-- not detected (4) Nausea & vomiting: Code(s): R11.2 - Nausea with vomiting, unspecified Status: Acute Assessment and Plan: QTc now prolonged, 510. Minimal improvement with multiple medications: dronabinol, metoclopramide, zofran --Treating constipation as noted --Tigan 200mg IM q6 prn --Ativan 0.5mg q6 prn x3 days for nausea/vomiting --Recheck EKG in am and consider additional antiemetics --could try zyprexa if QTc normalizes --Lipase was slightly elevated but only having intermittent mild abdominal pain and pancreas normal on CT CAP 12/12 so overall low suspicion for acute pancreatitis (5) Elevated troponin: Code(s): R79.89 - Other specified abnormal findings of blood chemistry Status: Acute Assessment and Plan: Troponin elevated, likely type II demand in the setting of pneumonia/lung mass. Troponin 0.071 No chest pain. D-dimer is negative --Recheck troponin --EKG NSR but artifact, repeat EKG AM 12/15 --Last Echo 11/15/24, LVEF 60-65%, no WMA's. Consider repeat Echo if troponin uptrending or unable to wean O2 (6) Constipation: Code(s): K59.00 - Constipation, unspecified Status: Acute Assessment and Plan: Last BM charted 12/11 --Schedule miralax TID, senna BID --Bisacodyl suppository and enema hs since having nausea --Follow results (7) Dizziness: Code(s): R42 - Dizziness and giddiness Status: Acute Assessment and Plan: 12/07 Unable to complete orthostatic BP due to refusal to stand due to dizziness, but BP farheen from supine to sitting position 12/07 Dronabinol was begun since admission 11/2024 and commonly causes dizziness, so discontinued this. Reported frequent nausea so restarted and no change to nausea -- continue PT/OT (8) Right lower lobe lung mass: Code(s): R91.8 - Other nonspecific abnormal finding of lung field Status: Acute Assessment and Plan: Chest x-ray shows stable right lower lobe masses and interstitial opacities in the peripheral in lower right lung - recently treated for PNA, received IV doxycycline and Rocephin but not febrile - patient has know leukocytosis. patient meet criteria for SIRS/Sepsis --Oncology consulted, will follow up outpatient Considering outpatient biopsy but may decide not to treat if malignancy. Can follow up with Dr. Palomo if she decides to treat it. (9) Moderate malnutrition: Code(s): E44.0 - Moderate protein-calorie malnutrition Status: Acute Assessment and Plan: Suspect related to malignancy --Encouraged PO intake, continue Ensure, encouraged to have friends or family bring outside food (10) Acute kidney injury: Code(s): N17.9 - Acute kidney failure, unspecified Status: Acute Assessment and Plan: IMPROVING creatinine peaked at 1.73, now down trending, 1.31. Has received fluids since drinking minimally 12/12 urine studies pending, UA no evidence of infection --Concern for acute pyelonephritis on CT but no dysuria and UA was negative. Sent Urine Culture, follow results (11) Chronic obstructive pulmonary disease: Code(s): J44.9 - Chronic obstructive pulmonary disease, unspecified Status: Acute Assessment and Plan: No oxygen at home, increasing O2 requirements - continues to cough - continue with current treatment regimen. - oxygen per nasal canula to keep sats above 90% - CPAP hs -Treatment of respiratory failure as noted (12) Hyperkalemia: Code(s): E87.5 - Hyperkalemia Status: Acute Assessment and Plan: Replacing as needed 12/12 3.7 12/13 3.3 20meq 12/14 3.2 40meq --Follow BMP, mag, phos (13) Hypertension: Code(s): I10 - Essential (primary) hypertension Status: Acute Assessment and Plan: BP controlled (14) Anxiety: Code(s): F41.9 - Anxiety disorder, unspecified Status: Acute Assessment and Plan: Continue medications (15) Depression: Code(s): F32.A - Depression, unspecified Status: Acute Assessment and Plan: Continue medications (16) Dyslipidemia: Code(s): E78.5 - Hyperlipidemia, unspecified Status: Acute Assessment and Plan: Continue medications (17) Protein calorie malnutrition: Code(s): E46 - Unspecified protein-calorie malnutrition Status: Acute Assessment and Plan: Eating minimally 2/2 nausea Time Spent With Patient Time: 64 minutes Subjective Date/time seen: 12/14/24 15:35 Interval history: White count still 19.4 No chest or abdominal pain and not distended. No pain to legs or swelling to legs. D-dimer was <0.27. Troponin is elevated this afternoon to 0.071. BNP elevated, 3630 Nausea not improving. Zofran, reglan, and droperidone not helping. Stopping droperidone and metoclopramide and starting tigan and ativan prn for n ausea given prolonged QT hasn't had a BM since 12/11. Increasing bowel regimen, constipation on CT. Lipase slightly elevated. Having mild abdominal pain intermittently but normal pancreas on recent CT Urine culture pending--NGTD Nonproductive cough, still on 5L, trying to wean Sent blood cultures, procalcitonin was normal Review of Systems Review of Systems: 12 systems were reviewed and are negativ e except for as per HPI. All systems reviewed & are unremarkable except as noted in HPI and below Constitutional: Constitutional: Reports as per HPI and Reports no additional constitutional complaints Exam Narrative: HEENT: PERRL, sclerae nonicteric, pharyngeal mucosa white plaques to tongue and roof of mouth NECK: No JVD, adenopathy, or thyromegaly CHEST: Decreased, especially the right, normal effort, crackles in the bases HEART: NL S1/S2, regular, no murmur ABDOMEN: BS+, soft, nontender, no mass, no bruits EXTREMITIES: No cyanosis, edema, or clubbing NEUROLOGIC: CN intact and symmetric to inspection, [id number] intact bilaterally MUSCULOSKELETAL: Tone and strength symmetric PSYCH: Alert. Oriented to person, place, and time Objective Data Vital Signs Vital Signs: Vital Signs - 24 hr 12/13/24 09:55 12/13/24 09:57 12/13/24 10:00 Temperature Pulse Rate Respiratory Rate Blood Pressure Pulse Oximetry 82 L 87 L 90 Oxygen Delivery Nasal Cannula Nasal Cannula Nasal Cannula Oxygen Flow Rate 3 4 5 12/13/24 13:09 12/13/24 13:19 12/13/24 14:00 Temperature 97.9 F Pulse Rate 84 83 100 Respiratory Rate 18 18 24 H Blood Pressure 142/74 H Pulse Oximetry 93 Oxygen Delivery Oxygen Flow Rate 12/13/24 15:00 12/13/24 20:00 12/13/24 20:00 Temperature Pulse Rate 107 H Respiratory Rate Blood Pressure 134/60 149/50 H Pulse Oximetry 91 95 Oxygen Delivery Nasal Cannula Oxygen Flow Rate 5 12/13/24 20:25 12/13/24 20:27 12/13/24 20:45 Temperature Pulse Rate 84 89 Respiratory Rate 18 18 Blood Pressure Pulse Oximetry 93 Oxygen Delivery Nasal Cannula Oxygen Flow Rate 5 12/13/24 21:43 12/14/24 05:54 Temperature 98.0 F 97.5 F L Pulse Rate 82 80 Respiratory Rate 16 16 Blood Pressure 140/49 L 152/43 H Pulse Oximetry 97 98 Oxygen Delivery Oxygen Flow Rate Intake/Output Intake/Output: Intake & Output 12/11/24 12/12/24 12/13/24 12/14/24 23:59 23:59 23:59 23:59 Intake Total 299 241 9808 50 Output Total 300 100 400 150 Balance -60 170 910 -100 Meds/Results Medications: Active Medications Generic Name Dose Route Start Last Admin Trade Name Jenny PRN Reason Stop Dose Admin Acetaminophen 650 mg 12/01/24 22:27 12/11/24 08:26 Acetaminophen 325 Mg Tablet PO 650 mg Q6H PRN Administration Mild Pain (1-3) or Fever Acetylcysteine 200 mg 12/07/24 08:00 12/14/24 03:01 Acetylcysteine 20% Inhal Soln 800 Mg/4 Ml Vial INHALATION Not Given Q6HRT LUCY Albuterol 2.5 mg 12/02/24 08:00 12/14/24 03:02 Albuterol Sulfate Neb 2.5 Mg/3 Ml Inh INHALATION Not Given Q6HRT [facility] Atorvastatin Calcium 40 mg 12/02/24 09:00 12/14/24 08:15 Atorvastatin 40 Mg Tablet PO 40 mg DAILY LUCY Administration Benzocaine 1 lozenge 12/13/24 11:47 12/13/24 12:16 Benzocaine/Menthol (*Bkc) 18 Ea Lozenge PO 1 lozenge PRN PRN Administration Sore Throat Clopidogrel Bisulfate 75 mg 12/02/24 09:00 12/14/24 08:15 Clopidogrel Bisulfate 75 Mg Tablet PO 75 mg DAILY LUCY Administration Clotrimazole 10 mg 12/13/24 15:00 12/14/24 08:15 Clotrimazole 10 Mg Troc PO 10 mg 5 TIMES DAILY LUCY Administration Diphenhydramine HCl 25 mg 12/13/24 15:36 Diphenhydramine Hcl Inj 50 Mg/Ml Vial IV PUSH Q12H PRN Itching Dronabinol 2.5 mg 12/11/24 17:00 12/14/24 08:15 Dronabinol (*Crx) 2.5 Mg Capsule PO 2.5 mg BID LUCY Administration Enoxaparin Sodium 30 mg 12/09/24 09:00 12/14/24 08:14 Enoxaparin 30 Mg/0.3 Ml Syringe SUB-Q 30 mg DAILY LUCY Administration Escitalopram Oxalate 10 mg 12/02/24 21:00 12/13/24 21:13 Escitalopram Oxalate 10 Mg Tablet PO 10 mg HS LUCY Administration Fluticasone/Umeclidinium/Vilanterol 1 puff 12/02/24 08:00 12/13/24 08:28 Fluticasone/Umeclidin/Vilanter 100-62.5-25 Mcg Ellipta INHALATION 1 puff DAILYRT LUCY Administration Furosemide 40 mg 12/07/24 17:00 12/11/24 08:27 Furosemide 40 Mg Tablet PO 40 mg BID LUCY Administration Guaifenesin 600 mg 12/02/24 05:00 12/03/24 09:17 Guaifenesin 12 Hr 600 Mg Tabcr PO 600 mg Q12H PRN Administration congestion Guaifenesin 1,200 mg 12/08/24 21:00 12/14/24 08:15 Guaifenesin 12 Hr 600 Mg Tabcr PO 1,200 mg Q12HR LUCY Administration Meropenem 1 gm/ Sodium 100 mls @ 200 mls/hr 12/13/24 16:00 12/14/24 03:49 Chloride IVPB 200 mls/hr Q12H LUCY Administration Melatonin 5 mg 12/02/24 21:00 12/13/24 21:13 Melatonin 5 Mg Tablet PO 5 mg QHS LUCY Administration Metoclopramide HCl 5 mg 12/13/24 16:30 12/14/24 05:35 Metoclopramide Hcl Inj 10 Mg/2 Ml Vial IV PUSH 5 mg TIDAC LUCY Administration Ondansetron HCl 4 mg 12/02/24 13:30 12/11/24 08:42 Ondansetron Hcl Odt 4 Mg Tablet PO 4 mg Q6H PRN Administration nausea and vomiting Ondansetron HCl 8 mg 12/11/24 19:00 12/14/24 06:25 Ondansetron Hcl Odt 4 Mg Tablet PO 8 mg Q12H LUCY Administration Pantoprazole Sodium 20 mg 12/02/24 05:00 12/12/24 08:28 Pantoprazole Sod Sesquihydrate 20 Mg Tab PO 20 mg QAM PRN Administration Indigestion Radiology Results: ITS Impressions Head CT 12/01/24 20:44 IMPRESSION: No acute intracranial process. Chest X-Ray 12/10/24 18:49 IMPRESSION: Chronic interstitial lung disease with improved left-sided pleural effusion, as detailed above. Chest/Abdomen/Pelvis CT 12/12/24 15:41 IMPRESSION: CHEST: 1. Hypodensity seen in the right lower lobe unchanged from previous examination which is most likely a mass. Pneumonia cannot be excluded. Another smaller density is seen just above the mentioned previously mass which also may be a mass or focal pneumonia. Follow-up to resolution and further evaluation advised. 2. Thickening of the septa in the right upper and lower lobe which may indicate pneumonitis versus edema. Follow-up advised. 3. Right hilar and mediastinal lymphadenopathy. 4. Underlying severe emphysematous changes. 5. Trace of pericardial effusion ABDOMEN/PELVIS: 1. No evidence of appendicitis, diverticulitis or intestinal obstruction. 2. Slightly dilated left renal pelvis with thickening of the wall which may indicate ascending pyelonephritis. Clinical correlation advised. 3. Severe atherosclerotic changes with slight aneurysmal dilatation seen in the distal aorta measuring 2.8 cm. Labs Labs: Laboratory Results - last 24 hr 12/13/24 12/14/24 13:57 06:16 WBC 19.4 H RBC 3.82 L Hgb 11.5 L Hct 36.9 L MCV 96.6 MCH 30.1 MCHC 31.2 L RDW 16.0 H Plt Count 200 MPV 9.8 Immature Gran % (Auto) 1.6 H Neut % (Auto) 83.3 H Lymph % (Auto) 6.3 L Towner % (Auto) 7.8 Eos % (Auto) 0.8 Baso % (Auto) 0.2 Lymph # (Auto) 1.21 Towner # (Auto) 1.5 H Eos # (Auto) 0.2 Baso # (Auto) 0.0 Abs Immat Gran (auto) 0.31 H Absolute Neuts (auto) 16.1 H Absolute Nucleated RBC 0.000 Nucleated RBC % 0.0 Sodium 146 H Potassium 3.2 L Chloride 112 H Carbon Dioxide 23 Anion Gap 11 BUN 45 H Creatinine 1.31 H Estim Creat Clear Calc 24 Estimated GFR 40 L Glucose 98 Calcium 8.7 Total Bilirubin 0.5 Direct Bilirubin 0.0 AST 40 H ALT 15 Alkaline Phosphatase 105 C-Reactive Protein 14.6 H Total Protein 6.5 Albumin 3.2 L Nasal MRSA (PCR) Not detected Group A Strep (PCR) Not detected Quality VTE Prophylaxis VTE prophylaxis: mechanical ordered and pharmacologic ordered Hospitalist MIPS Advance Care Plan I have confirmed that the patient's Advanced Care Plan is present, code status is documented, or surrogate decision maker is listed in patient medical record.: Yes Medication Reconciliation I have utilized all available resources to obtain, update and review the patients current medications (includes all prescriptions, OTC, herbals, cannabis, and nutritional supplements).: Yes
[2024-12-14] MEDS: ALBUTEROL SULFATE NEB 2.5 MG/3 ML INH INHALATION ×3 (09:28→21:01)
[2024-12-14] MEDS: ACETYLCYSTEINE 20% INHAL SOLN 800 MG/4 ML VIAL 200 MG INHALATION ×3 (09:28→21:01)
[2024-12-14] MEDS: FLUTICASONE/UMECLIDIN/VILANTER 100-62.5-25 MCG ELLIPTA 1 PUFF INHALATION (09:29)
[2024-12-14 09:54] LABS: Lipase 339 U/L (23-300)
[2024-12-14 10:10] LABS: Procalcitonin 0.1 ng/mL
[2024-12-14 15:22] LABS: NT Pro B Type Natriuretic Pept 3630 pg/mL (19.9-100); Troponin I 0.071 ng/mL (0.000-0.034)
--- NOTE | 2024-12-14 15:24 | ECG_ITS ---
Test Date: 2024-12-14 15:44:15 Measurements Intervals [place] Rate: 98 P: 76 [place]: 127 QRS: 42 QRSD: 104 T: 98 QT: 399 QTc: 510 Interpretive Statements SINUS RHYTHM ST DEVIATION AND MARKED T-WAVE ABNORMALITY, CONSIDER LATERAL ISCHEMIA [-0.5+ mV T-WAVE IN I/aVL/V5/V6] Compared to ECG 12/04/2024 18:37:08 T-wave abnormality now present Possible ischemia now present ST (T wave) deviation no longer present Electronically Signed On 12-15-2024 15:51:20 CDT by Valdo Jarvis M.D.
--- NOTE | 2024-12-14 16:47 | PCOTNOTE ---
Attempted to see pt for OT treatment this afternoon. Pt is currently visiting with family while supine in bed. Pt declined to participate in therapy session despite education stating increase fatigue as reason for refusal. Will continue per poc duration/frequency.
[2024-12-14] MEDS: SENNOSIDES 8.6 MG TABLET PO (16:54)
[2024-12-14] MEDS: ESCITALOPRAM OXALATE 10 MG TABLET PO (20:12)
[2024-12-14] MEDS: MELATONIN 5 MG TABLET PO (20:12)
[2024-12-14] MEDS: POTASSIUM CHLORIDE INJ 40 MEQ in SODIUM CHLORIDE 0.9% IV 500 ML 130 MEQ IVPB (20:12)
[2024-12-15] VITALS (15 sets, daily range): BP systolic 94–137; BP diastolic 47–67; PULSE 64–133; RESP 16–29; TEMP 36.1–36.6; O2SAT 82–96
[2024-12-15] MEDS: ALBUTEROL SULFATE NEB 2.5 MG/3 ML INH INHALATION ×2 (01:29→08:11)
[2024-12-15] MEDS: ACETYLCYSTEINE 20% INHAL SOLN 800 MG/4 ML VIAL 200 MG INHALATION ×2 (01:29→08:11)
--- NOTE | 2024-12-15 08:00 | ECG_ITS ---
Test Date: 2024-12-15 08:01:49 Measurements Intervals [place] Rate: 90 P: 74 [place]: 124 QRS: 57 QRSD: 101 T: 74 QT: 424 QTc: 521 Interpretive Statements SINUS RHYTHM LEFT VENTRICULAR HYPERTROPHY AND ST-T CHANGE [VOLTAGE CRITERIA PLUS ST/T ABNORMALITY] ABNORMAL ECG Compared to ECG 12/14/2024 15:44:15 NO SIGNIFICANT CHANGE Electronically Signed On 12-16-2024 09:50:31 CDT by Yevgeniy Hathaway M.D.
[2024-12-15 08:05] LABS: Hematocrit 38.7 % (37.0-47.0); Hemoglobin 11.5 g/dL (12.0-15.0); Immature Granulocyte Percent A 1.5 % (0-0.5); Lymphocytes Absolute Auto 1.32 K/mm3 (0.9-3.2); Mean Corpuscular HGB Conc 29.7 g/dl (32-36); Mean Corpuscular Hemoglobin 29.6 pg (26-34); Mean Corpuscular Volume 99.7 fl (80-100); Nucleated Red Blood Cells Absolute Auto 0.000 K/mm3 (0.0-0.012); Nucleated Red Blood Cells Perc 0.0 % (0.0-0.2); Platelet Count Result 207 k/mm3 (150-375); Red Blood Count 3.88 M/mm3 (4.2-5.4); White Blood Count 19.3 K/mm3 (4.5-10.0)
[2024-12-15] MEDS: FLUTICASONE/UMECLIDIN/VILANTER 100-62.5-25 MCG ELLIPTA 1 PUFF INHALATION (08:11)
[2024-12-15 08:18] LABS: Anion Gap 10 mmol/L (4-12); Blood Urea Nitrogen 39 mg/dL (7-17); Calcium 8.9 mg/dL (8.4-10.2); Carbon Dioxide 21 mmol/L (22-30); Chloride 119 mmol/L (98-107); Estimated CRCL calculation 25 ml/min; Estimated Glomerular Filt Rate 42; Glucose 100 mg/dL (65-110); Lipase 171 U/L (23-300); Magnesium 2.9 mg/dL (1.6-2.3); Potassium 4.2 mmol/L (3.4-5.0); Sodium 150 mmol/L (137-145)
[2024-12-15 08:32] LABS: NT Pro B Type Natriuretic Pept 2970 pg/mL (19.9-100); Troponin I 0.063 ng/mL (0.000-0.034)
[2024-12-15 08:36] LABS: Procalcitonin 0.1 ng/mL
[2024-12-15 08:49] LABS: Schistocytes None Seen
--- NOTE | 2024-12-15 09:24 | P.PNPL_ITS ---
Progress Note: A&P Assessment and Plan (1) Postobstructive pneumonia: Code(s): J18.9 - Pneumonia, unspecified organism Status: Acute Assessment and Plan: 12/04/24: She has persistent post obstructive pneumonia with 2 masses in the R lung, one in the superior segment of the RLL and another in the base of the RLL abutting the chest wall. These appear to be growing. Her last chest CT was 11/13/2024. This mass has increased since Feb 2024, now is 4.1 x 2.9 cm, and she is having progressive symptoms. She is on broad spectrum antibiotics, needs to have a biopsy of the RLL mass to confirm as her biopsy in 2022 had only scant cells. plan: I will ask RT to provide a Cornet valve, a PEP valve to help clear her secretions. She has a productive cough with copious clear secretions and difficulty expectorating these. She says that she had a Cornet valve when she was in rehab but somehow this was lost. I will also request vibratory vest to help clear her secretions and Mucomyst t.i.d. for pulmonary hygiene. She likely has an enlarging right lower lobe mass with persistent postobstructive pneumonia. She asked if she has pneumonia, and I told her that yes, I think she does, but not the usual pneumonia that we think of when we talk about pneumonia. She has enlarging right lower lobe mass which is over 4 cm and she has a PET scan from prior July which shows increasing mediastinal lymphadenopathy. She is on oxygen at rest and therefore is not a candidate for a CT-guided biopsy of her mass here. Our pulmonary department does not have endobronchial ultrasound. EBUS could be used to biopsy her mediastinal LAD. Two admissions ago, she did not want to be transferred. She may change her mind since she has been in the hosital or rehab since November 11. Oxygen as required to maintain sat 90-94%. Continue Trelegy 100 as her controller baseline therapy, and p.r.n. albuterol nebulized. Continue antibiotics, ok for Rocephin IV and oral azithromycin. All micro studies were negative last admission. I will check a CRP. 12/08/24: patient remains very weak, she has been in bed, when I asked her to set up she barely moves her arms to try to hold on to the rales and cannot pull herself up. Overall she feels tired but status that her breathing is normal. She has minimal phlegm which is normal for her and no hemoptysis. Currently she is on 3 L nasal cannula saturations 94%. She is afebrile. White blood cell count 16.3, creatinine 1.34. Plan: Patient continues to improve and is at her baseline. patient has received antibiotics since 12/01/2024. Continue Levaquin 500 q.day, today is day 8 of 10 of antibiotics. 12/09/24: Patient states that at rest her breathing is normal. She produces phlegm 2 to 3 times a day with no hemoptysis. She is too weak to get out of bed. She cannot expectorate her phlegm. When I enter the room she is on 4 L nasal cannula saturations 98%. I placed her on 3 L and her saturations were 92%. Patient had an overnight oximetry on 4 L with recording duration of 8 hours and 30 minutes. Average saturation 91%. Low saturation 83%. Time with saturation less than or equal to 88% was 84 minutes. Oxygen desaturation index 1.7. Her weight today is 47.2. Pulmonary signed off the case, finished 10 days Levaquin on 12/10/2024. 12/15/2024: Re-consulted for continued leukocytosis and worsening oxygen requirements from 3 L to [address] scan chest abdomen and pelvis on 12/12/2024 with worsening right lower lobe lung mass compared to 11/13/2024 from 40.9 x 29.32 49.9 x 28 mm. Worsening adjacent superior right lower lobe lung mass from 1.4 cm to 1.7 cm. no pleural effusions, surrounding mass infiltrate unchanged, no new consolidations. Patient started on clindamycin on 12/13 and changed to meropenem on 12/13. Currently the patient denies fever, chills, rigors. She says she has had no change in her breathing over the last 2-3 days, no change in her cough, less phlegm production and no hemoptysis. When I entered the room she was on 4 L nasal cannula saturations 93%. I decreased her to 3 L nasal cannula her saturations were 89% and I placed her back on 4 L. She is afebrile. White blood cell count 19.3, creatinine 1.24, lipase is decreased from 339 yesterday to 171 today. Procalcitonin remains unchanged at 0.1 today and yesterday. Patient complains of fatigue, constipation, nausea any time she eats or drinks. Her debility has worsened and she can barely roll over in bed now. When I asked her to cough she could barely clear her throat. Plan: Patient with no clinical symptoms of pneumonia. She denies fever, chills, rigors, worsening cough, worsening shortness of breath, change in her phlegm production. Her oxygen requirements have increased from 3 L previously to currently [address] scan shows worsening right lower lobe lung masses compared to 11/13/2024 with adjacent infiltrates. She has completed 10 days of Levaquin and is currently on day 3 of meropenem. procalcitonin remains low at 0.12 days in a row. I am not convinced patient has a bacterial pneumonia resulting in her leukocytosis. Agree with exploring other etiologies for her leukocytosis include lung cance (she declines biopsy today), constipation, urinary tract infection, doubt pancreatitis. Strep throat swab negative. Blood cultures negative. I will order lower extremity Dopplers to exclude DVT. Of note, patient had a leukocytosis her last admission from 11/13-11/21 ranging from 9.6 to 16.1. she had a leukocytosis at rehab ranging from 13.2 to 16.3. For now continue with meropenem day 3. Patient states she is making no phlegm and will discontinue Mucomyst and albuterol nebs. Will continue guaifenesin 1200 p.o. b.i.d. and trelegy 100 q day. Goal saturation 90-94%. Will wean as tolerated. Discussed with Hina Ling, will follow with you. (2) Malignant neoplasm of lower lobe, right bronchus or lung: Code(s): C34.31 - Malignant neoplasm of lower lobe, right bronchus or lung Status: Acute Assessment and Plan: She had a CT guided biopsy of the mass in the RLL mass in 07/21/2022, scant atypical cells recovered, morphologically compatible with carcinoma but is also morphologically compatible with reactive tissue. Completed SBRT 10/09/2022. CT scan 10/20/2024 showed a 2.1 cm right lower lobe nodule consolidation possibility of neoplasm, now 4.1 x 2.9 cm. Admission before last, this area was considered for a repeat CT-guided biopsy of the mass however as she is on supplemental O2, this excludes her from having a CT guided biopsy here. She is at high risk for complications, and 10 years ago, she reports having a collapsed lung. She has persistent post obstructive pneumonia with 2 masses in the R lung, one in the superior segment of the RLL and another in the base of the RLL abutting the chest wall. These appear to be growing. Her last chest CT was 11/13/2024. This mass has increased since Feb 2024, now is 4.1 x 2.9 cm, and she is having progressive symptoms. 12/08/24: The patient tells me her oncologist wanted her to recover and be discharged from rehab and see him as an outpatient prior to any additional workup. Currently the patient is debilitated on 3 L nasal cannula oxygen and will not be able to have a CT-guided biopsy at [facility] because she is on oxygen. Plan: Discussed with hospitalist. Hospitalist will reach out to Oncology to determine if there is a need for inpatient transfer to a facility that can do a CT-guided biopsy on a patient with oxygen or if a bronchoscopy with EBUS should be performed to assess her mass and right hilar and mediastinal lymphadenopathy. 12/09/24: patient to follow-up with Oncology regarding plan for enlarging right lower lobe mass. Oncology consult: Last seen in the office in October of 2024 with worsening right lower lobe consolidation. Biopsy recommended but patient does not want to have biopsy done at would not like any treatment for cancer. She is also not ready for hospice and comfort care. Patient would like to go home and then will con tact us with her decision regarding biopsy versus hospice comfort care. 12/15/24: patient declines biopsy at this time. (3) Chronic obstructive pulmonary disease: Code(s): J44.9 - Chronic obstructive pulmonary disease, unspecified Status: Acute Assessment and Plan: Regarding her COPD, 118 hundred eighteen pack year tobacco use currently smoking 2 packs per day. She was diagnosed approximately 10 years ago. alpha 1 anti trypsin genotype CS with nnormal level of 187 on 11/15/2024. She does not remember having PFTs. I have no PFTs. For CT in our system from 06/11/[address] scan from 11/13/2024 demonstrates severe panlobular emphysema all lung hall. Patient tells me 10 years ago she had a collapsed lung requiring a chest tube and hospitalization and recovered. One year ago she could walk 2 blocks. Three months ago which is the last time she felt normal she could walk 1 block and was limited by leg pain. Patient had a fall and was admitted to [facility] approximately 6 months ago and at that time she was prescribed oxygen. The oxygen was delivered to her house but she did not know how to use it and returned it. At home she measures her pulse oximetry sitting on room air and this ranges from 81 to 91%. 11/13/2024: ABG on 2 L 7./70. started on trelegy 200 a few weeks ago and says that this does help her. 11/19/2024: Overnight oximetry on 3 L: Recording duration 7 hours and 46 minutes. Average saturation 90%. Low saturation 74%. Time with saturation less than or equal to 88% was on 144 minutes, oxygen desaturation index 1.3. 12/08/24: currently no evidence of COPD exacerbation. Plan: Continued trelegy 100. continue albuterol nebulizer q.6 hours, Mucomyst nebulizer q 6 hour, Cornet flutter valve to aid in expectoration. I will add guaifenesin 1200 mg p.o. b.i.d. If she remains in the hospital tonight, I will perform overnight oximetry tonight on 4 L. goal saturation 90-94% during the day. 12/09/24: Patient continues to have difficulty expectorating. Patient had an overnight oximetry on 4 L with recording duration of 8 hours and 30 minutes. Average saturation 91%. Low saturation 83%. Time with saturation less than or equal to 88% was 84 minutes. Oxygen desaturation index 1.7. Plan: Continued trelegy 100. Continue guafenisin 1200 BID, albuterol nebulizer q.6 hours, Mucomyst nebulizer q 6 hour, Cornet flutter valve to aid in expectoration. Patient will need at least 5 L nasal cannula at night and this will be monitor at her SNF facility. 12/15/24: She denies fever, chills, rigors, worsening cough, worsening shortness of breath, change in her phlegm production. Her oxygen requirements have increased from 3 L previously to currently 4 L. No wheezing on exam. Plan: Patient states she is making no phlegm and will discontinue Mucomyst and albuterol nebs. Will continue guaifenesin 1200 p.o. b.i.d. and trelegy 100 q day. Patient remains severely debilitated, she can not roll over by herself in bed. When I asked her to cough she can only clear her throat. Given her debility, COPD, lung cancer, malnutrition patient is at high risk for further respiratory decompensation. Subjective Date/time seen: 12/15/24 09:24 Interval history: 12/05/24 at 12:35 p.m. Room 202 bed 1. NEW: Dawn Bocanegra is a 73-year-old woman with chronic respiratory failure on oxygen, COPD, tobacco abuse with smoking up until her November 11 admission, lung cancer in the RLL s/p SBRT completed 10/09/22. Her recent admission was from home, November 11- for postobstructive pneumonia in the right lower lobe. She has panlobular emphysema with 118 pack year history of tobacco abuse. She went to rehab from November 21 through , was readmitted to the hospital side without going home, had weakness, coughing, clear sputum, and an increase in her O2 need. She is wearing O2 now, but tells me that it is new. It is not new, she has been prescribed O2 for a while. This is the start of her history from 11/13/2024 with a new pulmonary consult for lung biopsy, Dr Bañuelos. . 73-year-old with a history of hypertension, hyperlipidemia, GERD, Subclavian artery stenosis status post stent, renal artery stenosis, Peripheral artery disease status post right carotid endarterectomy 1995, left carotid endarterectomy .COPD, radiographic lung cancer status post XRT. Regarding her COPD she was diagnosed approximately 10 years ago. She does not remember having PFTs. patient tells me 10 years ago she had a collapsed lung requiring a chest tube and hospitalization and recovered.One year ago she could walk 2 blocks. Three months ago which is the last time she felt normal she could walk 1 block and was limited by leg pain. Patient had a fall and was admitted to [facility] approximately 6 months ago and at that time she was prescribed oxygen. The oxygen was delivered to her house but she did not know how to use it and returned it. At home she measures her pulse oximetry sitting on room air and this ranges from 81 to 90 1%. Patient smoked tobacco from age 14 to current at 2 packs per day for 118 pack years, patient was exposed to secondhand smoke from both of her parents. 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 Patient is followed by Oncology, Dr. Palomo, last note I have is from . Patient had a CT-guided biopsy of a right lung mass on 07/21/2022 with scant atypical cells. In the comment it says morphologically compatible with carcinoma but is also morphologically compatible with reactive tissue. Completed SBRT 10/09/2022. CT scan 10/20/2024 showed a 2.1 cm right lower lobe nodule consolidation possibility of neoplasm. The mass has increased in size from the previous CT when it was 1.[address]-guided biopsy of the mass ordered and based on the pathology we will decide about PET scan. 11/05/2024: PCP office visit note for 1 week of cough and congestion. Room air saturations were listed as 75%. She had rhonchi and wheezes and was prescribed a Z-Gray and steroids. Patient took these medicines but felt no improvement. 11/12/2024: Patient presented to the hospital for outpatient CT-guided lung biopsy with low saturations and was sent to the emergency room. She had a white count of 13.4, creatinine 0.85, BNP 1720 and required 2 L nasal cannula for saturation 93%. Patient left AMA. 11/13/2024: Patient returned to the emergency room with worsening shortness of breath, cough and congestion. Room air saturations were 81%. She had rales and rhonchi. White blood cell count 14.5, eosinophils 0.7%. Creatinine 0.89. CRP 15.1. COVID, influenza and RSV RT PCR assay negative. MRSA nasal swab negative. ABG on 2 L 7.46/34/70. Patient was initiated on azithromycin, meropenem and vancomycin. This was changed to vancomycin, cefepime, Flagyl and doxycycline when she was admitted to the floor. 11/13/2024: Patient tells me she feels the same as she did yesterday. She has shortness of breath at rest and with activity and has not been out of bed. She had previously been on 3 L nasal cannula but the nurse told me her saturations went to 77% about 3 minutes before I entered. She was placed on 5 L and her saturations were 91%. She complains of being tired, no chest pain no hemoptysis. she says the phlegm is increased over the last 3 months and sometimes he gets stuck in her throat. 12/01/24: White blood cell count was elevated 16.3, has been decreasing since admission. Arterial blood gas December 04 showed a pH of 7.18 he had, pCO2 49.9 PO2 51.6 bicarbonate 18.3 saturation 77.4%. This was on 15 L non-rebreather mask. She was placed on BiPAP 17/01 with oxygen 50% with normalization of the gas, pH 7.46 pCO2 33.2, PO2 0 8, HC03 23.2 saturation 98.2%. She admitted 12/01 with weakness, was on 2 L/min. CXR 12/04 shows worsening interstitial infiltrates on CXR and O2 need has increased. She has been treated with IV Rocephin and oral azithromycin. Last admission, she was negative in influenza A/B, RSV and SARS-CoV-2, mycoplasma titers were normal, urine antigen for strep pneumonia Legionella were negative. MRSA nasal swab was negative. Extended respiratory pathogen panel was negative. She was loaded up on antibiotics, azithromycin, meropenem and vancomycin, changed to cefepime, Flagyl and doxycycline when she was admitted to the floor. Dr. Bañuelos saw her on November 14 post obstructive pneumonia, COPD, see note below. She was prescribed O2 prior to the last admission, she told the [employer] fabiola that she did not want it, and this was returned to the [employer]. She worsening respiratory status, was readmitted to the hospital on 12/01/2024. She says she has a cough with clear sputum production. She is on IV Rocephin and oral azithromycin, Trelegy 100 puff a day and p.r.n. albuterol 2.5 mg nebulized bronchodilator q.6 hours. PMH: hypertension, hyperlipidemia, GERD, subclavian artery stenosis status post stent, renal artery stenosis, peripheral artery disease status post right carotid endarterectomy 1995, left carotid endarterectomy, COPD, radiographic lung cancer status post XRT. Dr. Palomo treats her for lung cancer, completed SBRT 10/09/2022. She had a PET/CT scan 07/10/2024 showing Airspace opacities with increased activity in the lower lobes, right worse than left, consistent with radiation pneumonitis; Severe emphysema. Increased activity in normal-sized and borderline-enlarged right hilar and mediastinal lymph nodes, which may be reactive or metastatic disease. 12/08/24: patient remains very weak, she has been in bed, when I asked her to set up she barely moves her arms to try to hold on to the rales and cannot pull herself up. Overall she feels tired but status that her breathing is normal. She has minimal phlegm which is normal for her and no hemoptysis. Currently she is on 3 L nasal cannula saturations 94%. She is afebrile. White blood cell count 16.3, creatinine 1.34. 12/09/24: Patient states that at rest her breathing is normal. She produces phlegm 2 to 3 times a day with no hemoptysis. She is too weak to get out of bed. She cannot expectorate her phlegm. When I enter the room she is on 4 L nasal cannula saturations 98%. I placed her on 3 L and her saturations were 92%. Patient had an overnight oximetry on 4 L with recording duration of 8 hours and 30 minutes. Average saturation 91%. Low saturation 83%. Time with saturation less than or equal to 88% was 84 minutes. Oxygen desaturation index 1.7. Her weight today is 47.2. Pulmonary signed off the case, to finish Levaquin on 12/10/2024. Oncology call consult and last seen in the office in October of 2024 with worsening right lower lobe consolidation. Biopsy recommended but patient does not want to have biopsy done at would not like any treatment for cancer. She is also not ready for hospice and comfort care. Patient would like to go home and then will contact us with her decision regarding biopsy versus hospice comfort care. 12/15/2024: Re-consulted for continued leukocytosis and worsening oxygen r equirements from 3 L to [address] scan chest abdomen and pelvis on 12/12/2024 with worsening right lower lobe lung mass compared to 11/13/2024 from 40.9 x 29.32 49.9 x 28 mm. Worsening adjacent superior right lower lobe lung mass from 1.4 cm to 1.7 cm. no pleural effusions, surrounding mass infiltrate unchanged, no new consolidations. Patient started on clindamycin on 12/13 and changed to meropenem on 12/13. Currently the patient denies fever, chills, rigors. She says she has had no change in her breathing over the last 2-3 days, no change in her cough, less phlegm production and no hemoptysis. When I entered the room she was on 4 L nasal cannula saturations 93%. I decreased her to 3 L nasal cannula her saturations were 89% and I placed her back on 4 L. She is afebrile. White blood cell count 19.3, creatinine 1.24, lipase is decreased from 339 yesterday to 171 today. Procalcitonin remains unchanged at 0.1 today and yesterday. Patient complains of fatigue, constipation, nausea any time she eats or drinks. Her debility has worsened and she can barely roll over in bed now. When I asked her to cough she could barely clear her throat. DATA: CT chest abdomen pelvis wo con Ordering provider: Kamilla Finney APRN History: . Unexplained leukocytosis, >O2 requirement, N/V . Comparison: November 13, 2024 Technique: CT chest without IV contrast. CT abdomen and pelvis without oral and IV contrast. The dose-length product was 352.57 mGy-cm. FINDINGS: The study is limited due to lack of IV contrast. CHEST: --VISUALIZED THORACIC INLET: Normal as visualized. --MEDIASTINUM: Aorta/coronary arteries: Moderate atheromatous disease. Heart/other: The heart is not enlarged. Trace of pericardial effusion is noted anteriorly. Lymph nodes: Right paratracheal lymph nodes seen measuring 2.2 and 1.8 cm. Right hilar lymphadenopathy is seen. Calcified subcarinal lymph nodes are seen. Precarinal lymph node is seen measuring 1.2 cm. Prevascular lymph nodes are seen with the largest measures 1.1 cm. --LUNGS: Soft tissue density is seen in the right lower lobe which is suggestive of a mass versus pneumonia. Follow-up and further evaluation advised. . Soft tissue density is seen in the right lower lobe just above the previous soft tissue density which may be a mass or focal pneumonia. No pneumothorax. Thickening of the septa is seen in the right upper and lower lobe which may indicate pneumonitis or edema. Extensive underlying emphysematous changes are noted. --MUSCULOSKELETAL: Soft tissues: The superficial soft tissues are normal. Bones: Age appropriate degenerative changes of the spine. ABDOMEN/PELVIS: --MUSCULOSKELETAL: Bones: Age appropriate degenerative changes of the spine. Superficial soft tissues: The superficial soft tissues are normal. --UPPER ABDOMINAL ORGANS: Liver: Normal. Gallbladder: Status post cholecystectomy. Spleen: Normal. Stomach/duodenum: Normal. Pancreas: Normal. Adrenals: Normal. Kidneys: Normal. Calcifications seen in the right and left kidney areas are most likely vascular. Minimal fullness of the left renal pelvis is seen. Thickening of the wall of the left renal pelvis is seen which may indicate ascending pyelonephritis. Clinical correlation advised. --PELVIC ORGANS: The bladder is normal. No bladder stones. --BOWEL AND MESENTERY: Colon: No evidence of diverticulitis. Fecal material is loaded in the colon. Appendix is not demonstrated.. Small Bowel: Normal. No obstruction. Peritoneum/mesentery: No free air or free fluid. No mesenteric lymphadenopathy. --RETROPERITONEUM: Severe atheromatous disease of the abdominal aorta. Slight aneurysmal dilatation of the distal aorta is seen measuring 2.8 cm. Stent graft is seen in the left renal artery. Stents are seen in the iliac arteries. No retroperitoneal lymphadenopathy. IMPRESSION: CHEST: 1. Hypodensity seen in the right lower lobe unchanged from previous examination which is most likely a mass. Pneumonia cannot be excluded. Another smaller density is seen just above the mentioned previously mass which also may be a mass or focal pneumonia. Follow-up to resolution and further evaluation advised. 2. Thickening of the septa in the right upper and lower lobe which may indicate pneumonitis versus edema. Follow-up advised. 3. Right hilar and mediastinal lymphadenopathy. 4. Underlying severe emphysematous changes. 5. Trace of pericardial effusion ABDOMEN/PELVIS: 1. No evidence of appendicitis, diverticulitis or intestinal obstruction. 2. Slightly dilated left renal pelvis with thickening of the wall which may indicate ascending pyelonephritis. Clinical correlation advised. 3. Severe atherosclerotic changes with slight aneurysmal dilatation seen in the distal aorta measuring 2.8 cm. * 12/04/2024; CXR Comparison: 12/01/2024 Clinical History: Hypoxia Findings: There is worsening hazy and interstitial pulmonary disease bilaterally, compatible worsening pulmonary edema. Probable underlying COPD or other chronic interstitial disease. Possible minimal left pleural effusion. Cardiomediastinal silhouette is stable. Bones and soft tissues are unremarkable. Impression: Worsening alveolar and interstitial pulmonary edema pattern. Correlate clinically for pneumonia. Underlying COPD or other chronic interstitial disease. Minimal left pleural effusion. 11/13/2024: CTA chest PE protocol History: 73 years Female with . shortness of breath . Comparison: October 20, 2024 Findings: PULMONARY ARTERIES: No pulmonary embolus. VISUALIZED THORACIC INLET: Normal. MEDIASTINUM: Aorta/coronary arteries: Mild atheromatous disease. Heart/other: The heart is not enlarged. Lymph nodes: Prevascular lymphadenopathy is seen with the largest measures 1.6 cm. Bilateral hilar lymphadenopathy more in the right side. Subcarinal calcified lymph notes. Calcified lymph node in the left hilum. LUNGS: Emphysematous changes of the lungs. A mass is seen in the right lower lobe measuring 4.1 x 2.9 cm. Further evaluation advised. Smaller nodule is seen medially in the right lower lobe measuring 1.4 cm. Minimal interstitial opacification is seen in the right middle lobe and right upper lobe. Interstitial opacification also seen around the mass in the right lower lobe. Minimal interstitial opacification the left lung base. Right pleural effusion. No pulmonary nodules . No pneumothorax. VISUALIZED UPPER ABDOMEN: Proximal abdominal aorta measures 3 cm. Stent is seen in the left renal artery. Status post cholecystectomy. Slightly prominent pancreatic duct. Prominent CBD measuring 1.1 cm.. Otherwise, the visualized upper abdomen is normal. MUSCULOSKELETAL: Soft tissues: The superficial soft tissues are normal. Bones: Age appropriate degenerative changes of the spine. Increased kyphosis. Osteopenia of the bones. IMPRESSION: 1. No pulmonary embolism. 2. Mass measuring 4.1 x 2.9 cm in the right lower lobe. Further evaluation advised. Smaller nodule is seen adjacent to this mass in the right lower lobe area. 3. interstitial and alveolar opacification in the right middle , lower and upper lobes and left lower lobe suggestive of pneumonitis. 4. Extensive emphysematous changes seen bilaterally. 5. Right hilar and mediastinal lymphadenopathy. 6. The proximal abdominal aorta measures 3 cm. 07/10/2024: EXAMINATION: PET skull to mid thigh DATE: 07/10/2024 12:18 INDICATION: Malignant neoplasm of lung. TECHNIQUE: Blood glucose level was 93 mg/dL. 10.966 mCi of 18-fluorodeoxyglucose (18-FDG) was administered i.v. Low dose computed tomography (CT) images were acquired from the base of the brain to the proximal thighs for attenuation correction and anatomic localization. Automated exposure control was employed. Dose-length product (DLP) was 805 mGy-cm. Positron emission tomography (PET) images were acquired in the same distribution. COMPARISON: PET/CT 06/01/2022, chest CT 06/18/2024, 05/07/23 FINDINGS: Head/neck: There are likely changes of ocular lens replacement surgeries. There are scattered areas of low attenuation in the cerebral white matter, likely chronic small vessel ischemic disease. 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 There are no pathologically enlarged lymph nodes. Chest: There is a stent in proximal left subclavian artery. There is severe emphysema. A calcified left lung nodule and calcified left hilar and mediastinal lymph nodes are consistent with old granulomatous disease. There are airspace opacities in the lower lobes, right worse than left, with increased activity. There is increased activity in normal-sized and borderline-enlarged right hilar and mediastinal lymph nodes. No pleural effusion. The heart size is normal. There are coronary artery calcifications. No pericardial effusion. Abdomen/pelvis/proximal thighs: The liver is normal. There are changes of cholecystectomy. Calcifications in the spleen are consistent with old granulomatous disease. The pancreas, adrenal glands, and kidneys are normal. There are stents in the left bilateral common iliac arteries and left external iliac artery. There are no dilated loops of bowel. 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 There is a stent in left renal artery. There are no pathologically enlarged lymph nodes. There is no free intraperitoneal fluid. There is no osseous malignancy. There is subcutaneous old fat necrosis in right buttock. IMPRESSION: 1. Airspace opacities with increased activity in the lower lobes, right worse than left, consistent with radiation pneumonitis. 2. Severe emphysema. 3. Increased activity in normal-sized and borderline-enlarged right hilar and mediastinal lymph nodes, which may be reactive or metastatic disease. 06/18/2024: EXAMINATION: CT diagnostic chest w con INDICATION: C34.31 - Malignant neoplasm of lower lobe, right bronchus... COMPARISON: 02/22/2024 and 09/11/2022 FINDINGS: Severe emphysema with biapical pleural-parenchymal scarring. Calcified nodule at the left apex along with calcified left hilar and mediastinal lymph nodes consistent with old granulomatous disease. There is septal line thickening bilaterally basilar lower lobes, right middle lobe and lingula. Interval increase in size of a high attenuation potentially enhancing 1.7 x 1.4 cm spiculated nodule in the superior segment of the right lower lobe which measured approximately 1.2 x 1.1 cm on 12/13/2023. No significant interval change in a more caudal and lower density peripheral bandlike region of consolidation extending approximately 6 cm medial laterally measuring up to 1.5 cm in thickness likely related to changes of chronic radiation pneumonitis. No pleural effusion. Heart size is normal. Atherosclerotic coronary artery calcific location. No pericardial effusion. Thoracic aorta is normal in caliber with no dissection. There is stenting at the origin of the left subclavian artery. No significant change since 09/11/2022 in mild right hilar lymphadenopathy which favors reactive or metastatic lymph nodes. No other pathologically enlarged thoracic lymphadenopathy. A few calcified splenic granulomata. Mild to moderate thoracic spondylosis with bridging osteophytes at multiple levels consistent with diffuse idiopathic skeletal hyperostosis (DISH). IMPRESSION: 1. Enlargement of a now 1.7 x 1.4 cm higher attenuation, likely enhancing spicul ated nodule in the superior segment of the right lower lobe suspicious for progression of primary lung cancer. 2. No interval change in a more caudal peripheral band of consolidation in the right lower lobe likely related to chronic radiation fibrosis for reported prior treatment of an earlier mildly FDG avid nodule at this location suspicious for lung cancer. 3. Severe emphysema. 4. Mild right hilar lymphadenopathy unchanged since 09/11/2022 which in the absence of interval treatment would favor reactive over metastatic lymphadenopathy. 11/08/2023: Echo Summary 1. Left ventricular chamber dimension is normal. 2. Left ventricular systolic function is normal, estimated at 65-70%. 3. The left ventricular diastolic function is grade I diastolic dysfunction. 4. Global longitudinal strain is abnormal at -15 %. 5. Right ventricular systolic function is normal. 6. Left atrial chamber dimension is mildly enlarged. 7. There is mild tricuspid valve regurgitation. 8. There is mild pulmonic regurgitation. Left Ventricle Left ventricular chamber dimension is normal. Left ventricular systolic function is normal, estimated at 65-70%. There is no increased left ventricular wall thickness. The left ventricular diastolic function is grade I diastolic dysfunction. Global longitudinal strain is abnormal at -15 %. Right Ventricle Right ventricular chamber dimension is normal. Right ventricular systolic function is normal. Left Atria Left atrial chamber dimension is mildly enlarged. Right Atria Right atrial chamber dimension is normal. Atrial Septum Intact interatrial septum visualized by color flow imaging. Review of Systems Review of Systems: All systems reviewed & are unremarkable except as noted in HPI and below Constitutional: Constitutional: Reports no additional constitutional complaints Eyes: Eyes: Reports no additional eye complaints ENT: Reports system reviewed and no additional complaints, except as docum ented Cardiovascular: Cardiovascular: Reports no additional cardiovascular complaints Respiratory: Respiratory: Reports no additional respiratory complaints Gastrointestinal: Gastrointestinal: Reports no additional gastrointestinal complaints Musculoskeletal: Musculoskeletal: Reports no additional musculoskeletal complaints Neurologic: Reports system reviewed and no additional complaints, except as documented Psychiatric: Psychiatric: Reports no additional psychiatric complaints Endocrine: Endocrine: Reports no additional endocrine complaints Hematologic/Lymphatic: Hematologic/Lymphatic: Reports no additional hematologic/lymphatic complaints Allergic/Immunologic: Allergic/Immunologic: Reports no additional allergic/immunologic complaints Exam Const: General: cooperative and comfortable Orientation/consciousness: oriented to person, oriented to place and oriented to time Other: Debilitated HENMT: Head: normal to inspection Ears: hearing grossly normal bilaterally Eyes: General: appearance normal, both eyes and all related structures Neck: Neck: normal visual inspection Chest: Chest palpation & inspection: normal inspection of the chest Resp: Effort & Inspection: normal respiratory effort and able to speak in complete sentences Auscultation: no crackles, no rales, no rhonchi, no wheezes and diminished lung sounds Other: Decreased breath sounds. No wheezes. Cardio: Jugular venous distension: no JVD GI: Inspection: normal to inspection Skin: General skin exam: normal color Neuro: General: oriented to person, oriented to place and oriented to time Extrem: General: normal to inspection Psych: Appearance: grossly normal Objective Data Vital Signs Vital Signs: Vital Signs - 24 hr 12/14/24 09:29 12/14/24 09:32 12/14/24 14:00 Temperature 36.3 C L Pulse Rate 89 89 96 Respiratory Rate 16 16 22 H Blood Pressure 137/49 L Pulse Oximetry 89 L 97 Oxygen Delivery Nasal Cannula Oxygen Flow Rate 5 Fraction of Inspired Oxygen 12/14/24 14:58 12/14/24 20:00 12/14/24 20:00 Temperature Pulse Rate 52 L Respiratory Rate 16 Blood Pressure 125/49 L Pulse Oximetry 94 Oxygen Delivery Nasal Cannula Oxygen Flow Rate 5 Fraction of Inspired Oxygen 12/14/24 21:02 12/14/24 21:05 12/14/24 22:00 Temperature 36.8 C Pulse Rate 84 84 90 Respiratory Rate 20 20 16 Blood Pressure 127/49 L Pulse Oximetry 99 92 Oxygen Delivery Room Air Oxygen Flow Rate Fraction of Inspired Oxygen 36 12/15/24 01:29 12/15/24 01:39 12/15/24 06:00 Temperature 36.4 C Pulse Rate 84 90 91 Respiratory Rate 20 20 18 Blood Pressure 103/52 L Pulse Oximetry 93 Oxygen Delivery Oxygen Flow Rate Fraction of Inspired Oxygen 12/15/24 08:12 12/15/24 08:12 12/15/24 08:20 Temperature Pulse Rate 80 85 Respiratory Rate 18 18 Blood Pressure Pulse Oximetry 94 Oxygen Delivery Nasal Cannula Oxygen Flow Rate 5 Fraction of Inspired Oxygen Intake/Output Intake/Output: Intake & Output 12/12/24 12/13/24 12/14/24 12/15/24 23:59 23:59 23:59 23:59 Intake Total 270 1310 250 Output Total 100 400 300 50 Balance 170 910 -50 -50 Meds/Results Medications: Active Medications Generic Name Dose Route Start Last Admin Trade Name Freq PRN Reason Stop Dose Admin Acetaminophen 650 mg 12/01/24 22:27 12/11/24 08:26 Acetaminophen 325 Mg Tablet PO 650 mg Q6H PRN Administration Mild Pain (1-3) or Fever Acetylcysteine 200 mg 12/07/24 08:00 12/15/24 08:11 Acetylcysteine 20% Inhal Soln 800 Mg/4 Ml Vial INHALATION 200 mg Q6HRT LUCY Administration Albuterol 2.5 mg 12/02/24 08:00 12/15/24 08:11 Albuterol Sulfate Neb 2.5 Mg/3 Ml Inh INHALATION 2.5 mg Q6HRT LUCY Administration Atorvastatin Calcium 40 mg 12/02/24 09:00 12/14/24 08:15 Atorvastatin 40 Mg Tablet PO 40 mg DAILY LUCY Administration Benzocaine 1 lozenge 12/13/24 11:47 12/13/24 12:16 Benzocaine/Menthol (*Bkc) 18 Ea Lozenge PO 1 lozenge PRN PRN Administration Sore Throat Bisacodyl 10 mg 12/15/24 16:00 Bisacodyl 10 Mg Suppository RECTAL DAILY [facility] Clopidogrel Bisulfate 75 mg 12/02/24 09:00 12/14/24 08:15 Clopidogrel Bisulfate 75 Mg Tablet PO 75 mg DAILY LUCY Administration Clotrimazole 10 mg 12/13/24 15:00 12/14/24 20:12 Clotrimazole 10 Mg Troc PO 10 mg 5 TIMES DAILY LUCY Administration Diphenhydramine HCl 25 mg 12/13/24 15:36 Diphenhydramine Hcl Inj 50 Mg/Ml Vial IV PUSH Q12H PRN Itching Enoxaparin Sodium 30 mg 12/09/24 09:00 12/14/24 08:14 Enoxaparin 30 Mg/0.3 Ml Syringe SUB-Q 30 mg DAILY LUCY Administration Escitalopram Oxalate 10 mg 12/02/24 21:00 12/14/24 20:12 Escitalopram Oxalate 10 Mg Tablet PO 10 mg HS LUCY Administration Fluticasone/Umeclidinium/Vilanterol 1 puff 12/02/24 08:00 12/15/24 08:11 Fluticasone/Umeclidin/Vilanter 100-62.5-25 Mcg Ellipta INHALATION 1 puff DAILYRT LUCY Administration Furosemide 40 mg 12/07/24 17:00 12/11/24 08:27 Furosemide 40 Mg Tablet PO 40 mg BID LUCY Administration Guaifenesin 1,200 mg 12/08/24 21:00 12/14/24 20:12 Guaifenesin 12 Hr 600 Mg Tabcr PO 1,200 mg Q12HR LUCY Administration Meropenem 1 gm/ Sodium 100 mls @ 200 mls/hr 12/15/24 10:00 Chloride IVPB Q12H LUCY Lorazepam 0.5 mg 12/14/24 19:26 Lorazepam Inj (*Crx) 2 Mg/Ml Vial IV PUSH 12/17/24 19:25 Q6H PRN nausea and vomting, 2nd line Melatonin 5 mg 12/02/24 21:00 12/14/24 20:12 Melatonin 5 Mg Tablet PO 5 mg QHS LUCY Administration Pantoprazole Sodium 20 mg 12/02/24 05:00 12/12/24 08:28 Pantoprazole Sod Sesquihydrate 20 Mg Tab PO 20 mg QAM PRN Administration Indigestion Polyethylene Glycol 17 gm 12/14/24 13:00 12/14/24 16:54 Polyethylene Glycol 3350 17 Gm Powd.Pack PO 17 gm TID LUCY Administration Senna 8.6 mg 12/14/24 17:00 12/14/24 16:54 Sennosides 8.6 Mg Tablet PO 8.6 mg BID LUCY Administration Trimethobenzamide HCl 200 mg 12/14/24 19:23 Trimethobenzamide Hcl 200 Mg/2 Ml Vial IM Q6H PRN Nausea And Vomiting Radiology Results: ITS Impressions Head CT 12/01/24 20:44 IMPRESSION: No acute intracranial process. Chest X-Ray 12/10/24 18:49 IMPRESSION: Chronic interstitial lung disease with improved left-sided pleural effusion, as detailed above. Chest/Abdomen/Pelvis CT 12/12/24 15:41 IMPRESSION: CHEST: 1. Hypodensity seen in the right lower lobe unchanged from previous examination which is most likely a mass. Pneumonia cannot be excluded. Another smaller density is seen just above the mentioned previously mass which also may be a mass or focal pneumonia. Follow-up to resolution and further evaluation advised. 2. Thickening of the septa in the right upper and lower lobe which may indicate pneumonitis versus edema. Follow-up advised. 3. Right hilar and mediastinal lymphadenopathy. 4. Underlying severe emphysematous changes. 5. Trace of pericardial effusion ABDOMEN/PELVIS: 1. No evidence of appendicitis, diverticulitis or intestinal obstruction. 2. Slightly dilated left renal pelvis with thickening of the wall which may indicate ascending pyelonephritis. Clinical correlation advised. 3. Severe atherosclerotic changes with slight aneurysmal dilatation seen in the distal aorta measuring 2.8 cm. Labs Labs: Laboratory Results - last 24 hr 12/14/24 12/14/24 12/15/24 06:15 14:49 07:19 WBC 19.3 H RBC 3.88 L Hgb 11.5 L Hct 38.7 MCV 99.7 MCH 29.6 MCHC 29.7 L RDW 16.6 H Plt Count 207 MPV 10.0 Immature Gran % (Auto) 1.5 H Neut % (Auto) 82.5 H Lymph % (Auto) 6.9 L Shelby % (Auto) 8.2 Eos % (Auto) 0.5 Baso % (Auto) 0.4 Lymph # (Auto) 1.32 [place] # (Auto) 1.6 H Eos # (Auto) 0.1 Baso # (Auto) 0.1 Abs Immat Gran (auto) 0.29 H Absolute Neuts (auto) 15.9 H Absolute Nucleated RBC 0.000 Band Neutrophils % Not Reportable Nucleated RBC % 0.0 Platelet Estimate Adequate Schistocytes None seen D-Dimer < 0.27 Sodium 150 H Potassium 4.2 Chloride 119 H Carbon Dioxide 21 L Anion Gap 10 BUN 39 H Creatinine 1.24 H Estim Creat Clear Calc 25 Estimated GFR 42 L Glucose 100 Calcium 8.9 Phosphorus 2.5 Magnesium 2.9 H Troponin I 0.071 H* 0.063 H* NT-Pro-B Natriuret Pep 3630 H 2970 H Lipase 339 H 171 Procalcitonin 0.1 0.1
[2024-12-15] MEDS: CLOPIDOGREL BISULFATE 75 MG TABLET PO (09:29)
[2024-12-15] MEDS: ATORVASTATIN 40 MG TABLET PO (09:29)
[2024-12-15] MEDS: ENOXAPARIN 30 MG/0.3 ML SYRINGE SUB-Q (09:30)
[2024-12-15] MEDS: SENNOSIDES 8.6 MG TABLET PO ×2 (09:30→16:41)
[2024-12-15] MEDS: MEROPENEM 1 GM in SODIUM CHLORIDE 0.9% IV 100 ML 200 ML IVPB ×2 (09:38→22:28)
[2024-12-15] MEDS: CLOTRIMAZOLE 10 MG TROC PO (12:33)
--- NOTE | 2024-12-15 14:13 | P.PNIM_ITS ---
Progress Note: A&P Assessment and Plan (1) Acute respiratory failure: Code(s): J96.00 - Acute respiratory failure, unspecified whether with hypoxia or hypercapnia Status: Acute Assessment and Plan: -12/05 Seems to be responding to IV furosemide due to possible volume overload with diastolic dysfunction (EF 60-65%) -Continue diuresis, monitor labs. Azithromycin + Ceftriaxone started 12/04, switched to PO Augmentin 12/06 -As procalcitonin was 0.5 12/02, 12/06 switch to PO amoxiclav for possible recurrent post-obstructive pneumonia -12/04-12/13 WBC trending up on levaquin, completed and continues to uptrend. May be reactive to malignancy vs new infection -No oxygen at baseline prior to admission. -12/13 pulmonology reconsulted and recommended starting meropenem. Discussed with Dr. Bañuelos and he is wanting to do Meropenem for 5 days, although he is not convinced this is post obstructive pneumonia. Covid/Flu/RSV negative 12/12 D-dimer <0.27 and on Lovenox for DVT prophylaxis Troponin elevated to 0.071 --> 0.063 likely demand 12/11 Chest Xray Chronic interstitial lung disease with improved left-sided pleural effusion, as detailed above. 12/12 CT chest/abd/pelvis CHEST: 1. Hypodensity seen in the right lower lobe unchanged from previous examination which is most likely a mass. Pneumonia cannot be excluded. Another smaller density is seen just above the mentioned previously mass which also may be a mass or focal pneumonia. Follow-up to resolution and further evaluation advised. 2. Thickening of the septa in the right upper and lower lobe which may indicate pneumonitis versus edema. Follow-up advised. 3. Right hilar and mediastinal lymphadenopathy. 4. Underlying severe emphysematous changes. 5. Trace of pericardial effusion ABDOMEN/PELVIS: 1. No evidence of appendicitis, diverticulitis or intestinal obstruction. 2. Slightly dilated left renal pelvis with thickening of the wall which may indicate ascending pyelonephritis. Clinical correlation advised. 3. Severe atherosclerotic changes with slight aneurysmal dilatation seen in the distal aorta measuring 2.8 cm. PLAN --Increasing oxygen requirements 3<4<5L LPM by NC. Wean as tolerated --Sputum culture if able to obtain, cough has remained nonproductive or clear --Antibiotics for pneumonia, discussed with Dr. Bañuelos --Patient does not wish to continue vest treatments due to nausea (2) Elevated WBC count: Code(s): D72.829 - Elevated white blood cell count, unspecified Status: Acute Assessment and Plan: WBC still 19 -CT CAP 12/12 possible pneumonia or acute pyelonephritis -Urine culture pending 12/15; pt asymptomatic -BC pending -Strep swab neg -Nasal MRSA not detected (3) Hospital-acquired pneumonia: Code(s): J18.9 - Pneumonia, unspecified organism; Y95 - Nosocomial condition Status: Acute Assessment and Plan: CT concerning for pneumonia with increased oxygen requirements No LE edema or leg pain, no chest pain --Started clindamycin 12/12, changed to meropenem 12/13 since O2 requirements increased --Follow CBC, CRP, ESR. Procalcitonin normal --MRSA swab-- not detected --pulmonology consulted (4) Nausea & vomiting: Code(s): R11.2 - Nausea with vomiting, unspecified Status: Acute Assessment and Plan: QTc now prolonged, 510. Minimal improvement with multiple medications: dronabino l, metoclopramide, zofran --Treating constipation as noted; enema given today 12/15 --Tigan 200mg IM q6 prn --Ativan 0.5mg q6 prn x3 days for nausea/vomiting --Recheck EKG in am and consider additional antiemetics --could try zyprexa if QTc normalizes --Lipase was slightly elevated but only having intermittent mild abdominal pain and pancreas normal on CT CAP 12/12 so overall low suspicion for acute pancreatitis (5) Elevated troponin: Code(s): R79.89 - Other specified abnormal findings of blood chemistry Status: Acute Assessment and Plan: Troponin elevated, likely type II demand in the setting of pneumonia/lung mass. --Troponin 0.071--> 0.063 No chest pain. D-dimer is negative --EKG NSR but artifact, repeat EKG AM 12/15 --Last Echo 11/15/24, LVEF 60-65%, no WMA's. (6) Constipation: Code(s): K59.00 - Constipation, unspecified Status: Acute Assessment and Plan: Last BM charted 12/11 --Schedule miralax TID, senna BID --Bisacodyl suppository and enema hs since having nausea (7) Dizziness: Code(s): R42 - Dizziness and giddiness Status: Acute Assessment and Plan: 12/07 Unable to complete orthostatic BP due to refusal to stand due to dizziness, but BP farheen from supine to sitting position 12/07 Dronabinol was begun since admission 11/2024 and commonly causes dizziness, so discontinued this. Reported frequent nausea so restarted and no change to nausea -- continue PT/OT (8) Right lower lobe lung mass: Code(s): R91.8 - Other nonspecific abnormal finding of lung field Status: Acute Assessment and Plan: Chest x-ray shows stable right lower lobe masses and interstitial opacities in the peripheral in lower right lung - recently treated for PNA and continue to be treated for it. - patient has know leukocytosis. - patient meet criteria for SIRS/Sepsis - Oncology consulted, will follow up outpatient Considering outpatient biopsy but may decide not to treat if malignancy. Can follow up with Dr. Palomo if she decides to treat it. (9) Moderate malnutrition: Code(s): E44.0 - Moderate protein-calorie malnutrition Status: Acute Assessment and Plan: Suspect related to malignancy --Encouraged PO intake, continue Ensure, encouraged to have friends or family bring outside food (10) Acute kidney injury: Code(s): N17.9 - Acute kidney failure, unspecified Status: Acute Assessment and Plan: IMPROVING creatinine peaked at 1.73, now down trending, 1.31. Has received fluids since drinking minimally 12/12 urine studies pending, UA no evidence of infection --Concern for acute pyelonephritis on CT but no dysuria and UA was negative. Sent Urine Culture, follow results (11) Chronic obstructive pulmonary disease: Code(s): J44.9 - Chronic obstructive pulmonary disease, unspecified Status: Acute Assessment and Plan: No oxygen at home, increasing O2 requirements - continues to cough - continue with current treatment regimen. - oxygen per nasal canula to keep sats above 90% - CPAP hs -Treatment of respiratory failure as noted (12) Hyperkalemia: Code(s): E87.5 - Hyperkalemia Status: Acute Assessment and Plan: Replacing as needed 12/12 3.7 12/13 3.3 20meq 12/14 3.2 40meq --Follow BMP, mag, phos (13) Hypertension: Code(s): I10 - Essential (primary) hypertension Status: Acute Assessment and Plan: BP controlled (14) Protein calorie malnutrition: Code(s): E46 - Unspecified protein-calorie malnutrition Status: Acute Assessment and Plan: Eating minimally 2/2 nausea Subjective Date/time seen: 12/15/24 14:13 Interval history: Patient continued to have nausea. She is receiving enema today. Hopefully with having bowel movements she will start to feel better. Discussed with pulmonology on her condition. It is suspected that her leukocytosis is likely from the malignancy rather than from infection but will continue treating with antibiotics for least 5 days. Patient is refusing to do therapy and is having difficulty even moving about the bed. Encouraged the nurses to get patient up to chair today. Poor outlook if patient does not participate in therapy. Exam Narrative: GENERAL: Comfortable, no acute distress, cachectic HENMT: moist mucous membranes EYES: EOM intact b/l RESPIRATORY: Advantageous breath sounds, distant, scattered wheezing CARDIO: Regular rate and rhythm GI: soft, nontender, bowel sounds present NEURO: PROM intact, answers questions appropriately Objective Data Vital Signs Vital Signs: Vital Signs - 24 hr 12/14/24 14:58 12/14/24 20:00 12/14/24 20:00 Temperature Pulse Rate 52 L Respiratory Rate 16 Blood Pressure 125/49 L Pulse Oximetry 94 Oxygen Delivery Nasal Cannula Oxygen Flow Rate 5 Fraction of Inspired Oxygen 12/14/24 21:02 12/14/24 21:05 12/14/24 22:00 Temperature 98.2 F Pulse Rate 84 84 90 Respiratory Rate 20 20 16 Blood Pressure 127/49 L Pulse Oximetry 99 92 Oxygen Delivery Room Air Oxygen Flow Rate Fraction of Inspired Oxygen 36 12/15/24 01:29 12/15/24 01:39 12/15/24 06:00 Temperature 97.6 F Pulse Rate 84 90 91 Respiratory Rate 20 20 18 Blood Pressure 103/52 L Pulse Oximetry 93 Oxygen Delivery Oxygen Flow Rate Fraction of Inspired Oxygen 12/15/24 08:12 12/15/24 08:12 12/15/24 08:20 Temperature Pulse Rate 80 85 Respiratory Rate 18 18 Blood Pressure Pulse Oximetry 94 Oxygen Delivery Nasal Cannula Oxygen Flow Rate 5 Fraction of Inspired Oxygen Intake/Output Intake/Output: Intake & Output 12/12/24 12/13/24 12/14/24 12/15/24 23:59 23:59 23:59 23:59 Intake Total 270 1310 250 Output Total 100 400 300 50 Balance 170 910 -50 -50 Meds/Results Medications: Active Medications Generic Name Dose Route Start Last Admin Trade Name Freq PRN Reason Stop Dose Admin Acetaminophen 650 mg 12/01/24 22:27 12/11/24 08:26 Acetaminophen 325 Mg Tablet PO 650 mg Q6H PRN Administration Mild Pain (1-3) or Fever Atorvastatin Calcium 40 mg 12/02/24 09:00 12/15/24 09:29 Atorvastatin 40 Mg Tablet PO 40 mg DAILY LUCY Administration Benzocaine 1 lozenge 12/13/24 11:47 12/13/24 12:16 Benzocaine/Menthol (*Bkc) 18 Ea Lozenge PO 1 lozenge PRN PRN Administration Sore Throat Bisacodyl 10 mg 12/15/24 16:00 Bisacodyl 10 Mg Suppository RECTAL DAILY [facility] Clopidogrel Bisulfate 75 mg 12/02/24 09:00 12/15/24 09:29 Clopidogrel Bisulfate 75 Mg Tablet PO 75 mg DAILY LUCY Administration Clotrimazole 10 mg 12/13/24 15:00 12/15/24 12:33 Clotrimazole 10 Mg Troc PO 10 mg 5 TIMES DAILY LUCY Administration Diphenhydramine HCl 25 mg 12/13/24 15:36 Diphenhydramine Hcl Inj 50 Mg/Ml Vial IV PUSH Q12H PRN Itching Enoxaparin Sodium 30 mg 12/09/24 09:00 12/15/24 09:30 Enoxaparin 30 Mg/0.3 Ml Syringe SUB-Q 30 mg DAILY LUCY Administration Escitalopram Oxalate 10 mg 12/02/24 21:00 12/14/24 20:12 Escitalopram Oxalate 10 Mg Tablet PO 10 mg HS LUCY Administration Fluticasone/Umeclidinium/Vilanterol 1 puff 12/02/24 08:00 12/15/24 08:11 Fluticasone/Umeclidin/Vilanter 100-62.5-25 Mcg Ellipta INHALATION 1 puff DAILYRT LUCY Administration Furosemide 40 mg 12/07/24 17:00 12/11/24 08:27 Furosemide 40 Mg Tablet PO 40 mg BID LUCY Administration Guaifenesin 1,200 mg 12/08/24 21:00 12/15/24 12:32 Guaifenesin 12 Hr 600 Mg Tabcr PO Not Given Q12HR LUCY Meropenem 1 gm/ Sodium 100 mls @ 200 mls/hr 12/15/24 10:00 12/15/24 09:38 Chloride IVPB 200 mls/hr Q12H LUCY Administration Lorazepam 0.5 mg 12/14/24 19:26 Lorazepam Inj (*Crx) 2 Mg/Ml Vial IV PUSH 12/17/24 19:25 Q6H PRN nausea and vomting, 2nd line Melatonin 5 mg 12/02/24 21:00 12/14/24 20:12 Melatonin 5 Mg Tablet PO 5 mg QHS LUCY Administration Pantoprazole Sodium 20 mg 12/02/24 05:00 12/12/24 08:28 Pantoprazole Sod Sesquihydrate 20 Mg Tab PO 20 mg QAM PRN Administration Indigestion Polyethylene Glycol 17 gm 12/14/24 13:00 12/15/24 12:33 Polyethylene Glycol 3350 17 Gm Powd.Pack PO Not Given TID LUCY Senna 8.6 mg 12/14/24 17:00 12/15/24 09:30 Sennosides 8.6 Mg Tablet PO 8.6 mg BID LUCY Administration Trimethobenzamide HCl 200 mg 12/14/24 19:23 Trimethobenzamide Hcl 200 Mg/2 Ml Vial IM Q6H PRN Nausea And Vomiting Radiology Results: ITS Impressions Head CT 12/01/24 20:44 IMPRESSION: No acute intracranial process. Chest X-Ray 12/10/24 18:49 IMPRESSION: Chronic interstitial lung disease with improved left-sided pleural effusion, as detailed above. Chest/Abdomen/Pelvis CT 12/12/24 15:41 IMPRESSION: CHEST: 1. Hypodensity seen in the right lower lobe unchanged from previous examination which is most likely a mass. Pneumonia cannot be excluded. Another smaller densi ty is seen just above the mentioned previously mass which also may be a mass or focal pneumonia. Follow-up to resolution and further evaluation advised. 2. Thickening of the septa in the right upper and lower lobe which may indicate pneumonitis versus edema. Follow-up advised. 3. Right hilar and mediastinal lymphadenopathy. 4. Underlying severe emphysematous changes. 5. Trace of pericardial effusion ABDOMEN/PELVIS: 1. No evidence of appendicitis, diverticulitis or intestinal obstruction. 2. Slightly dilated left renal pelvis with thickening of the wall which may indicate ascending pyelonephritis. Clinical correlation advised. 3. Severe atherosclerotic changes with slight aneurysmal dilatation seen in the distal aorta measuring 2.8 cm. Labs Labs: Laboratory Results - last 24 hr 12/14/24 12/15/24 14:49 07:19 WBC 19.3 H RBC 3.88 L Hgb 11.5 L Hct 38.7 MCV 99.7 MCH 29.6 MCHC 29.7 L RDW 16.6 H Plt Count 207 MPV 10.0 Immature Gran % (Auto) 1.5 H Neut % (Auto) 82.5 H Lymph % (Auto) 6.[address] % (Auto) 8.2 Eos % (Auto) 0.5 Baso % (Auto) 0.4 Lymph # (Auto) 1.32 [facility] # (Auto) 1.6 H Eos # (Auto) 0.1 Baso # (Auto) 0.1 Abs Immat Gran (auto) 0.29 H Absolute Neuts (auto) 15.9 H Absolute Nucleated RBC 0.000 Band Neutrophils % Not Reportable Nucleated RBC % 0.0 Platelet Estimate Adequate Schistocytes None seen D-Dimer < 0.27 Sodium 150 H Potassium 4.2 Chloride 119 H Carbon Dioxide 21 L Anion Gap 10 BUN 39 H Creatinine 1.24 H Estim Creat Clear Calc 25 Estimated GFR 42 L Glucose 100 Calcium 8.9 Phosphorus 2.5 Magnesium 2.9 H Troponin I 0.071 H* 0.063 H* NT-Pro-B Natriuret Pep 3630 H 2970 H Lipase 171 Procalcitonin 0.1
--- NOTE | 2024-12-15 15:06 | PCOTNOTE ---
Patient is out of the room at this time. Patient is down having testing performed
--- NOTE | 2024-12-15 15:52 | PCPTNOTE ---
The patient treatment was not able to be completed this afternoon due to patient out of room for testing.. Will plan to continue treatment per plan of care.
[2024-12-15] MEDS: BISACODYL 10 MG SUPPOSITORY RECTAL (16:41)
--- NOTE | 2024-12-15 19:29 | ECG_ITS ---
Test Date: 2024-12-15 19:38:11 Measurements Intervals Arma Rate: 136 P: 73 MD: 108 QRS: 38 QRSD: 94 T: 103 QT: 338 QTc: 510 Interpretive Statements BASELINE ARTIFACTS/POOR QUALITY ECG SINUS TACHYCARDIA WITH PVCS LEFT VENTRICULAR HYPERTROPHY WITH SECONDARY REPOLARIZATION ABNORMALITY ABNORMAL ECG Compared to ECG 12/15/2024 08:01:49 HEART RATE IS INCREASED, PVCS NOTED AND SIGNIFICANT BASELINE ARTIFACT MAKING FOR A POOR QUALITY ECG Electronically Signed On 12-16-2024 10:07:44 CDT by Yevgeniy Hathaway M.D.
--- NOTE | 2024-12-15 19:32 | PM.CCN ---
Critical Care Event Note Summary Code activated: No Narrative: Rapid Response called at 7:29 pm, arrived at the bedside at 7:31. Patient significantly tachycardiac in the 200s, VTach on telemetry. Synchronized cardioversion done at 120 joules. Repeat [address] in the 130s. Patient is DNI, now electing to be Full Code. Prior to rapid, called due to worsening breathing and adventitious lung sounds. ABG and CXR ordered. Per bedside RN, the patient has been refusing BiPAP for the last few nights. CXR showed right lung opacities may represent asymmetric edema or infection, overlying chronic severe emphysema.. Will give 1 mg of Bumex IV. Patient to be placed back on BiPAP. Difficulty obtaining accurate O2 sat due to cold extremities. Sat currently reading in the low 80s on 7L NC. Awaiting ABG. Post-BiPAP, sat now reading in the upper 80s, tolerating well. Will transfer patient to IMU for closer monitoring. Coarse lung sounds on exam. Patient somnolent. Reassessment shows improvement in somnolence. Lung sounds remain coarse. Patient is not tolerating BiPAP well reporting anxiety. Anxiolytic ordered x1. This case had a high probability of a clinically significant, sudden, or life threatening deterioration of this patient's condition which required my full and direct attention, intervention and personal management. Critical care time: 30 - 74 mins
[2024-12-15] MEDS: BUMETANIDE INJ 1 MG/4 ML VIAL IV PUSH (19:40)
[2024-12-15] MEDS: ESCITALOPRAM OXALATE 10 MG TABLET PO (20:54)
[2024-12-15] MEDS: LORazepam (*CRX) 1 MG TABLET PO (20:54)
[2024-12-15 21:21] LABS: Alveolar/Arterial O2 Gradient 254.7 mmHg; Fractional Inspired Oxygen 50 %; HCO3 ABG 17.9 mEq/l (22.0-26.0); Oxygen Content ABG 16.6 %vol (16.0-22.0); Oxygen Saturation ABG 93.4 % (95.0-100.0); PCO2 ABG 30.8 mmHg (35.0-45.0); PO2 ABG 67.2 mmHg (80.0-100.0); PO2 FiO2 Ratio Arterial Blood 1.34 %
[2024-12-15 21:28] LABS: Site Drawn RIGHT BRACHIAL
--- NOTE | 2024-12-15 21:32 | PCRCNOTE ---
Addendum entered by Florencio Chapman, APRIL 12/16/24 06:30: ABG from 2029 noted below was attempted unsuccessfully, then attempted again with doppler obtained from ICU, again unsuccessfully; 2nd RT (previously successful) called to assist; ABG obtained Addendum entered by Florencio Chapman, APRIL 12/16/24 00:36: 2320 - Patient transported to IMU 204, on NRB set to 6 L/min and placed back on BiPAP via V60 with settings S/T-18 * 16/8 * 50% Original Note: Stat ABG ordered; arrived to patient room; stat EKG ordered for irregular heart rhythm and minimal responsiveness; Rapid Response called; upon arrival with EKG machine telemetry showed Vtach with rate of 220, pulses not palpable, shock delivered; patient placed on BiPAP via V60 with settings RR-18, IPAP- 16, EPAP- 8, FiO2- 50%; EKG completed; attempted to obtain ABG- unsuccessful; 2nd ABG timed for 2029 difficult but successful; patient is agitated after 5-10 minutes of BiPAP, trying to remove the mask repeatedly
[2024-12-16] VITALS (18 sets, daily range): BP systolic 108–131; BP diastolic 38–66; PULSE 104–118; RESP 14–27; TEMP 36.4–36.9; O2SAT 91–100
--- NOTE | 2024-12-16 | ECHO_ITS ---
Patient Info Name: Dawn Bocanegra Age: 74 years : 1950 Gender: Female Ht: 65 in Wt: 99 lbs BSA: 1.42 m2 HR: 108 bpm BP: 115 / 66 mmHg Technical Quality: Fair Exam Date: 12/16/2024 3:06 PM Patient Status: I Admit Date: 12/02/2024 Exam Type: CA echo doppler color flow Complete two-dimensional, color flow and Doppler transthoracic echocardiogram is performed. Staff Referring Physician: Edgar Cam Arabic Teacher: Brina Hurtado Attending Provider: Xiomara Chang Summary 1. Complete two-dimensional, color flow and Doppler transthoracic echocardiogram is performed. 2. Left ventricular chamber dimension is normal. 3. Left ventricular systolic function is normal, estimated at 60-65. 4. The left ventricular diastolic function is abnormal. 5. E/e' 21 is elevated. 6. There is mild aortic valve sclerosis. 7. The mitral valve has a moderately calcified annulus. 8. There is trace tricuspid valve regurgitation. 9. No pulmonary hypertension, estimated pulmonary arterial systolic pressure is 18 mmHg. Left Ventricle E/e' 21 is elevated. Left ventricular chamber dimension is normal. Left ventricular systolic function is normal, estimated at 60-65. The left ventricular diastolic function is abnormal. Right Ventricle Right ventricular chamber dimension is normal. Right ventricular systolic function is normal. Left Atria Left atrial chamber dimension is normal. Right Atria Right atrial chamber dimension is normal. Aortic Valve The aortic valve is trileaflet. There is mild aortic valve sclerosis. There is no aortic valve stenosis. There is no aortic valve regurgitation. Pulmonic Valve There is no pulmonic regurgitation. Mitral Valve The mitral valve has a moderately calcified annulus. There is no mitral valve stenosis. There is no mitral valve regurgitation. Tricuspid Valve There is trace tricuspid valve regurgitation. No pulmonary hypertension, estimated pulmonary arterial systolic pressure is 18 mmHg. Pericardium/Pleural There is no pericardial effusion. Inferior Vena Cava Normal inferior vena cava with >50% collapse upon inspiration consistent with normal right atrial pressure, 5 mmHg. Aorta The aortic root size at the sinus of Valsalva is normal. Left Ventricular Outflow Tract Name Value Normal LVOT 2D LVOT Diameter 2.0 cm LVOT Doppler LVOT Peak Velocity 146 cm/s LVOT Peak Gradient 9 mmHg LVOT Mean Gradient 3 mmHg LVOT VTI 15 cm LVOT VTI/AV VTI Ratio 0.6 LVOT Stroke Volume 45 ml LVOT CO 4.7 l/min LVOT CI 3.3 l/min/m2 Pulmonic Valve Name Value Normal RVOT Doppler RVOT Peak Velocity 104 cm/s RVOT Peak Gradient 4 mmHg PV Doppler PV Peak Velocity 149 cm/s PV Peak Gradient 9 mmHg Mitral Valve Name Value Normal MV Diastolic Function MV E Peak Velocity 101 cm/s MV A Peak Velocity 0 cm/s MV E/A 1,028.8 MV Decel Time (PW) 49 ms MV Annular TDI MV E/e' (Septal) 18.7 MV E/e' (Lateral) 26.5 MV E/e' (Average) 22.6 Tricuspid Valve Name Value Normal TV Regurgitation Doppler TR Peak Velocity 178 cm/s TR Peak Gradient 13 mmHg Estimated PAP/RSVP RA Pressure 5 mmHg <=5 PA Systolic Pressure 18 mmHg <36 RV Systolic Pressure 18 mmHg <36 TV Annular TDI TV Lateral Sandy s' Velocity 5.3 cm/s >=9.5 Aortic Valve Name Value Normal AV Doppler AV Peak Velocity 205 cm/s AV Peak Gradient 17 mmHg AV Mean Gradient 8 mmHg AV VTI 24 cm AV Area (Cont Eq VTI) 1.9 cm2 >=3.0 AV Area (Cont Eq Pete) 2.1 cm2 AV DI (Pete) 0.71 AV Regurgitation 2D LVOT Area 3.0 cm2 Ventricles Name Value Normal LV Dimensions 2D/MM IVS Diastolic Thickness (2D) 0.9 cm 0.6-1.0 LVID Diastole (2D) 3.3 cm 3.8-5.2 LVIW Diastolic Thickness (2D) 0.9 cm 0.6-0.9 LVID Systole (2D) 2.3 cm 2.2-3.5 LVOT Diameter 2.0 cm LV Mass (2D Cubed) 79.56 g 67.00-162.00 LV Mass Index (2D Cubed) 56 g/m2 43-95 Relative Wall Thickness (2D) 0.53 <=0.42 LV Fractional Shortening/Ejection Fraction 2D/MM LV Fractional Shortening (2D) 30 % 27-45 LV EF (2D Teichholz) 58 % Atria Name Value Normal RA Dimensions RA Area (4C) 10.8 cm2 <=18.0 Report Signatures
[2024-12-16 04:14] LABS: Hematocrit 41.0 % (37.0-47.0); Hemoglobin 12.3 g/dL (12.0-15.0); Immature Granulocyte Percent A 4.6 % (0-0.5); Lymphocytes Absolute Auto 1.30 K/mm3 (0.9-3.2); Mean Corpuscular HGB Conc 30.0 g/dl (32-36); Mean Corpuscular Hemoglobin 29.9 pg (26-34); Mean Corpuscular Volume 99.8 fl (80-100); Nucleated Red Blood Cells Absolute Auto 0.040 K/mm3 (0.0-0.012); Nucleated Red Blood Cells Perc 0.2 % (0.0-0.2); Platelet Count Result 246 k/mm3 (150-375); Red Blood Count 4.11 M/mm3 (4.2-5.4); White Blood Count 24.8 K/mm3 (4.5-10.0)
[2024-12-16 04:38] LABS: Anion Gap 15 mmol/L (4-12); Blood Urea Nitrogen 51 mg/dL (7-17); Calcium 9.4 mg/dL (8.4-10.2); Carbon Dioxide 19 mmol/L (22-30); Chloride 121 mmol/L (98-107); Estimated CRCL calculation 15 ml/min; Estimated Glomerular Filt Rate 23; Glucose 130 mg/dL (65-110); Magnesium 3.2 mg/dL (1.6-2.3); Potassium 4.3 mmol/L (3.4-5.0); Sodium 155 mmol/L (137-145)
--- NOTE | 2024-12-16 08:00 | PCRCNOTE ---
Patient unable to take DPI.
--- NOTE | 2024-12-16 09:34 | PM.PNPUL ---
Progress Note: A&P Assessment and Plan (1) Postobstructive pneumonia: Code(s): J18.9 - Pneumonia, unspecified organism Status: Acute Assessment and Plan: 12/04/24: She has persistent post obstructive pneumonia with 2 masses in the R lung, one in the superior segment of the RLL and another in the base of the RLL abutting the chest wall. These appear to be growing. Her last chest CT was 11/13/2024. This mass has increased since Feb 2024, now is 4.1 x 2.9 cm, and she is having progressive symptoms. She is on broad spectrum antibiotics, needs to have a biopsy of the RLL mass to confirm as her biopsy in 2022 had only scant cells. plan: I will ask RT to provide a Cornet valve, a PEP valve to help clear her secretions. She has a productive cough with copious clear secretions and difficulty expectorating these. She says that she had a Cornet valve when she was in rehab but somehow this was lost. I will also request vibratory vest to help clear her secretions and Mucomyst t.i.d. for pulmonary hygiene. She likely has an enlarging right lower lobe mass with persistent postobstructive pneumonia. She asked if she has pneumonia, and I told her that yes, I think she does, but not the usual pneumonia that we think of when we talk about pneumonia. She has enlarging right lower lobe mass which is over 4 cm and she has a PET scan from prior July which shows increasing mediastinal lymphadenopathy. She is on oxygen at rest and therefore is not a candidate for a CT-guided biopsy of her mass here. Our pulmonary department does not have endobronchial ultrasound. EBUS could be used to biopsy her mediastinal LAD. Two admissions ago, she did not want to be transferred. She may change her mind since she has been in the hosital or rehab since November 11. Oxygen as required to maintain sat 90-94%. Continue Trelegy 100 as her controller baseline therapy, and p.r.n. albuterol nebulized. Continue antibiotics, ok for Rocephin IV and oral azithromycin. All micro studies were negative last admission. I will check a CRP. 12/08/24: patient remains very weak, she has been in bed, when I asked her to set up she barely moves her arms to try to hold on to the rales and cannot pull herself up. Overall she feels tired but status that her breathing is normal. She has minimal phlegm which is normal for her and no hemoptysis. Currently she is on 3 L nasal cannula saturations 94%. She is afebrile. White blood cell count 16.3, creatinine 1.34. Plan: Patient continues to improve and is at her baseline. patient has received antibiotics since 12/01/2024. Continue Levaquin 500 q.day, today is day 8 of 10 of antibiotics. 12/09/24: Patient states that at rest her breathing is normal. She produces phlegm 2 to 3 times a day with no hemoptysis. She is too weak to get out of bed. She cannot expectorate her phlegm. When I enter the room she is on 4 L nasal cannula saturations 98%. I placed her on 3 L and her saturations were 92%. Patient had an overnight oximetry on 4 L with recording duration of 8 hours and 30 minutes. Average saturation 91%. Low saturation 83%. Time with saturation less than or equal to 88% was 84 minutes. Oxygen desaturation index 1.7. Her weight today is 47.2. Pulmonary signed off the case, finished 10 days Levaquin on 12/10/2024. 12/15/2024: Re-consulted for continued leukocytosis and worsening oxygen requirements from 3 L to [address] scan chest abdomen and pelvis on 12/12/2024 with worsening right lower lobe lung mass compared to 11/13/2024 from 40.9 x 29.32 49.9 x 28 mm. Worsening adjacent superior right lower lobe lung mass from 1.4 cm to 1.7 cm. no pleural effusions, surrounding mass infiltrate unchanged, no new consolidations. Patient started on clindamycin on 12/13 and changed to meropenem on 12/13. Currently the patient denies fever, chills, rigors. She says she has had no change in her breathing over the last 2-3 days, no change in her cough, less phlegm production and no hemoptysis. When I entered the room she was on 4 L nasal cannula saturations 93%. I decreased her to 3 L nasal cannula her saturations were 89% and I placed her back on 4 L. She is afebrile. White blood cell count 19.3, creatinine 1.24, lipase is decreased from 339 yesterday to 171 today. Procalcitonin remains unchanged at 0.1 today and yesterday. Patient complains of fatigue, constipation, nausea any time she eats or drinks. Her debility has worsened and she can barely roll over in bed now. When I asked her to cough she could barely clear her throat. Plan: Patient with no clinical symptoms of pneumonia. She denies fever, chills, rigors, worsening cough, worsening shortness of breath, change in her phlegm production. Her oxygen requirements have increased from 3 L previously to currently [address] scan shows worsening right lower lobe lung masses compared to 11/13/2024 with adjacent infiltrates. She has completed 10 days of Levaquin and is currently on day 3 of meropenem. procalcitonin remains low at 0.12 days in a row. I am not convinced patient has a bacterial pneumonia resulting in her leukocytosis. Agree with exploring other etiologies for her leukocytosis include lung cance (she declines biopsy today), constipation, urinary tract infection, doubt pancreatitis. MRSA swab negative 12/04/2024. MRSA swab negative 12/13/2024. Strep throat swab negative. Blood cultures negative. I will order lower extremity Dopplers to exclude DVT. Of note, patient had a leukocytosis her last admission from 11/13-11/21 ranging from 9.6 to 16.1. she had a leukocytosis at rehab ranging from 13.2 to 16.3. For now continue with meropenem day 3. Patient states she is making no phlegm and will discontinue Mucomyst and albuterol nebs. Will continue guaifenesin 1200 p.o. b.i.d. and trelegy 100 q day. Goal saturation 90-94%. Will wean as tolerated. 12/16/2024: Patient currently is on BiPAP rate of 18 breathing 27, pressures 16/8 with tidal volume 870 and FiO2 50% with saturations 96% and says this is uncomfortable. She does open her eyes to command, shows 2 fingers on the right, raises left hand but does not show 2 fingers and wiggles toes bilaterally. She has cyanosis. she is afebrile. White blood cell count 24.8, creatinine 2.09. Output yesterday listed as 100 mL. I placed her on noninvasive ventilation with the AVAPS mode and adjusted the settings to comfort resulting in a rate of 14, tidal volume 500, inspiratory time 1.0, rise of 3 and 50% with saturations 94%. Plan: Patient deteriorated post her V-tach episode last night, now with acute renal failure and respiratory distress requiring noninvasive ventilation. Chest x-ray without any new focal infiltrates or effusions since 12/10/2024. continue meropenem, day 4. Discussed with hospitalist will reach out to family to discuss level of care and code status. Discussed with Dr. Cam, will follow with you. (2) Malignant neoplasm of lower lobe, right bronchus or lung: Code(s): C34.31 - Malignant neoplasm of lower lobe, right bronchus or lung Status: Acute Assessment and Plan: She had a CT guided biopsy of the mass in the RLL mass in 07/21/2022, scant atypical cells recovered, morphologically compatible with carcinoma but is also morphologically compatible with reactive tissue. Completed SBRT 10/09/2022. CT scan 10/20/2024 showed a 2.1 cm right lower lobe nodule consolidation possibility of neoplasm, now 4.1 x 2.9 cm. Admission before last, this area was considered for a repeat CT-guided biopsy of the mass however as she is on supplemental O2, this excludes her from having a CT guided biopsy here. She is at high risk for complications, and 10 years ago, she reports having a collapsed lung. She has persistent post obstructive pneumonia with 2 masses in the R lung, one in the superior segment of the RLL and another in the base of the RLL abutting the chest wall. These appear to be growing. Her last chest CT was 11/13/2024. This mass has increased since Feb 2024, now is 4.1 x 2.9 cm, and she is having progressive symptoms. 11/14/2024: Plan: Bronchoscopic biopsy at [facility] is not a consideration given the very low yield of the procedure. If tissue diagnosis is needed per oncology the patient will need to be referred to a higher level of care facility for CT-guided biopsy or consultation with interventional steward/stewardess third class for possible bronchoscopy with EBUS sampling of the hilar lymph nodes. I discussed this with the patient and currently the patient is refusing referral to a [facility]. 12/08/24: The patient tells me her oncologist wanted her to recover and be discharged from rehab and see him as an outpatient prior to any additional workup. Currently the patient is debilitated on 3 L nasal cannula oxygen and will not be able to have a CT-guided biopsy at [facility] because she is on oxygen. Plan: Discussed with hospitalist. Hospitalist will reach out to Oncology to determine if there is a need for inpatient transfer to a facility that can do a CT-guided biopsy on a patient with oxygen or if a bronchoscopy with EBUS should be performed to assess her mass and right hilar and mediastinal lymphadenopathy. 12/09/24: patient to follow-up with Oncology regarding plan for enlarging right lower lobe mass. Oncology consult: Last seen in the office in October of 2024 with worsening right lower lobe consolidation. Biopsy recommended but patient does not want to have biopsy done at would not like any treatment for cancer. She is also not ready for hospice and comfort care. Patient would like to go home and then will contact us with her decision regarding biopsy versus hospice comfort care. 12/15/24: patient declines biopsy at this time. 12/16/24: Need to have discussions with family regarding overall level of care in a patient who has declined biopsies back on 11/14/2024 for enlarging mass in the right lower lobe. in my opinion patient and family should at a minimum gather information about hospice care and palliative care. (3) Chronic obstructive pulmonary disease: Code(s): J44.9 - Chronic obstructive pulmonary disease, unspecified Status: Acute Assessment and Plan: Regarding her COPD, 118 hundred eighteen pack year tobacco use currently smoking 2 packs per day. She was diagnosed approximately 10 years ago. alpha 1 anti trypsin genotype CS with nnormal level of 187 on 11/15/2024. She does not remember having PFTs. I have no PFTs. For CT in our system from 06/11/[address] scan from 11/13/2024 demonstrates severe panlobular emphysema all lung hall. Patient tells me 10 years ago she had a collapsed lung requiring a chest tube and hospitalization and recovered. One year ago she could walk 2 blocks. Three months ago which is the last time she felt normal she could walk 1 block and was limited by leg pain. Patient had a fall and was admitted to [facility] approximately 6 months ago and at that time she was prescribed oxygen. The oxygen was delivered to her house but she did not know how to use it and returned it. At home she measures her pulse oximetry sitting on room air and this ranges from 81 to 91%. 11/13/2024: ABG on 2 L 7.70. started on trelegy 200 a few weeks ago and says that this does help her. 11/19/2024: Overnight oximetry on 3 L: Recording duration 7 hours and 46 minutes. Average saturation 90%. Low saturation 74%. Time with saturation less than or equal to 88% was on 144 minutes, oxygen desaturation index 1.3. 12/08/24: currently no evidence of COPD exacerbation. Plan: Continued trelegy 100. continue albuterol nebulizer q.6 hours, Mucomyst nebulizer q 6 hour, Cornet flutter valve to aid in expectoration. I will add guaifenesin 1200 mg p.o. b.i.d. If she remains in the hospital tonight, I will perform overnight oximetry tonight on 4 L. goal saturation 90-94% during the day. 12/09/24: Patient continues to have difficulty expectorating. Patient had an overnight oximetry on 4 L with recording duration of 8 hours and 30 minutes. Average saturation 91%. Low saturation 83%. Time with saturation less than or equal to 88% was 84 minutes. Oxygen desaturation index 1.7. Plan: Continued trelegy 100. Continue guafenisin 1200 BID, albuterol nebulizer q.6 hours, Mucomyst nebulizer q 6 hour, Cornet flutter valve to aid in expectoration. Patient will need at least 5 L nasal cannula at night and this will be monitor at her SNF facility. 12/15/24: She denies fever, chills, rigors, worsening cough, worsening shortness of breath, change in her phlegm production. Her oxygen requirements have increased from 3 L previously to currently 4 L. No wheezing on exam. Plan: Patient states she is making no phlegm and will discontinue Mucomyst and albuterol nebs. Will continue guaifenesin 1200 p.o. b.i.d. and trelegy 100 q day. Patient remains severely debilitated, she can not roll over by herself in bed. When I asked her to cough she can only clear her throat. Given her debility, COPD, lung cancer, malnutrition patient is at high risk for further respiratory decompensation. 19:29: Rapid response called and patient had V-tach rate of 200 status post cardioversion followed by respiratory distress. Chest x-ray with diffuse interstitial alveolar infiltrates on the right with minimal change since 12/10/2024. Patient treated with Bumex, BiPAP and required Ativan for anxiety on the BiPAP. ABG on BiPAP rate of 18 pressure 16/8 in 50% was 7.38/31/67. 12/16/24: I placed her on noninvasive ventilation with the AVAPS mode and adjusted the settings to comfort resulting in a rate of 14, tidal volume 500, inspiratory time 1.0, rise of 3 and 50% with saturations 94%. Plan: Will continue noninvasive ventilation with the AVAPS mode p.r.n.. Overall prognosis is poor. (4) Right leg DVT: Code(s): I82.401 - Acute embolism and thrombosis of unspecified deep veins of right lower extremity Status: Acute Assessment and Plan: 12/15/24: Lower extremity Dopplers demonstrate DVT in the distal right femoral vein. 12/16/24: Patient with right DVT. Patient may or may not have a PE. Her creatinine is 2.09 and therefore unable to perform CT angiogram of the chest. Plan: Patient shows 2 fingers with the right but not with the left hand. She received Ativan and remains minimally responsive. Patient requires anticoagulation but need to exclude contraindications to anticoagulation such as intracerebral event and with her V-tach episode need to exclude cancer invasion of the pericardium and or pericardial effusion prior to Lovenox. Subjective Date/time seen: 12/16/24 09:34 Interval history: 12/05/24 at 12:35 p.m. Room 202 bed 1. NEW: Dawn Bocanegra is a 73-year-old woman with chronic respiratory failure on oxygen, COPD, tobacco abuse with smoking up until her November 11 admission, lung cancer in the RLL s/p SBRT completed 10/09/22. Her recent admission was from home, November 11- for postobstructive pneumonia in the right lower lobe. She has panlobular emphysema with 118 pack year history of tobacco abuse. She went to rehab from November 21 through , was readmitted to the hospital side without going home, had weakness, coughing, clear sputum, and an increase in her O2 need. She is wearing O2 now, but tells me that it is new. It is not new, she has been prescribed O2 for a while. This is the start of her history from 11/13/2024 with a new pulmonary consult for lung biopsy, Dr Bañuelos. . 73-year-old with a history of hypertension, hyperlipidemia, GERD, Subclavian artery stenosis status post stent, renal artery stenosis, Peripheral artery disease status post right carotid endarterectomy 1995, left carotid endarterectomy .COPD, radiographic lung cancer status post XRT. Regarding her COPD she was diagnosed approximately 10 years ago. She does not remember having PFTs. patient tells me 10 years ago she had a collapsed lung requiring a chest tube and hospitalization and recovered.One year ago she could walk 2 blocks. Three months ago which is the last time she felt normal she could walk 1 block and was limited by leg pain. Patient had a fall and was admitted to [facility] approximately 6 months ago and at that time she was prescribed oxygen. The oxygen was delivered to her house but she did not know how to use it and returned it. At home she measures her pulse oximetry sitting on room air and this ranges from 81 to 90 1%. Patient smoked tobacco from age 14 to current at 2 packs per day for 118 pack years, patient was exposed to secondhand smoke from both of her parents. 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 Patient is followed by Oncology, Dr. Palomo, last note I have is from 10/24/2024. Patient had a CT-guided biopsy of a right lung mass on 07/21/2022 with scant atypical cells. In the comment it says morphologically compatible with carcinoma but is also morphologically compatible with reactive tissue. Completed SBRT 10/09/2022. CT scan 10/20/2024 showed a 2.1 cm right lower lobe nodule consolidation possibility of neoplasm. The mass has increased in size from the previous CT when it was 1.[address]-guided biopsy of the mass ordered and based on the pathology we will decide about PET scan. 11/05/2024: PCP office visit note for 1 week of cough and congestion. Room air saturations were listed as 75%. She had rhonchi and wheezes and was prescribed a Z-Gray and steroids. Patient took these medicines but felt no improvement. 11/12/2024: Patient presented to the hospital for outpatient CT-guided lung biopsy with low saturations and was sent to the emergency room. She had a white count of 13.4, creatinine 0.85, BNP 1720 and required 2 L nasal cannula for saturation 93%. Patient left AMA. 11/13/2024: Patient returned to the emergency room with worsening shortness of breath, cough and congestion. Room air saturations were 81%. She had rales and rhonchi. White blood cell count 14.5, eosinophils 0.7%. Creatinine 0.89. CRP 15.1. COVID, influenza and RSV RT PCR assay negative. MRSA nasal swab negative. ABG on 2 L 7.. Patient was initiated on azithromycin, meropenem and vancomycin. This was changed to vancomycin, cefepime, Flagyl and doxycycline when she was admitted to the floor. 11/13/2024: Patient tells me she feels the same as she did yesterday. She has shortness of breath at rest and with activity and has not been out of bed. She had previously been on 3 L nasal cannula but the nurse told me her saturations went to 77% about 3 minutes before I entered. She was placed on 5 L and her saturations were 91%. She complains of being tired, no chest pain no hemoptysis. she says the phlegm is increased over the last 3 months and sometimes he gets stuck in her throat. 12/01/24: White blood cell count was elevated 16.3, has been decreasing since admission. Arterial blood gas December 04 showed a pH of 7.18 he had, pCO2 49.9 PO2 51.6 bicarbonate 18.3 saturation 77.4%. This was on 15 L non-rebreather mask. She was placed on BiPAP 17/01 with oxygen 50% with normalization of the gas, pH 7.46 pCO2 33.2, PO2 0 8, HC03 23.2 saturation 98.2%. She admitted 12/01 with weakness, was on 2 L/min. CXR 12/04 shows worsening interstitial infiltrates on CXR and O2 need has increased. She has been treated with IV Rocephin and oral azithromycin. Last admission, she was negative in influenza A/B, RSV and SARS-CoV-2, mycoplasma titers were normal, urine antigen for strep pneumonia Legionella were negative. MRSA nasal swab was negative. Extended respiratory pathogen panel was negative. She was loaded up on antibiotics, azithromycin, meropenem and vancomycin, changed to cefepime, Flagyl and doxycycline when she was admitted to the floor. Dr. Bañuelos saw her on November 14 post obstructive pneumonia, COPD, see note below. She was prescribed O2 prior to the last admission, she told the [facility] that she did not want it, and this was returned to the [facility]. She worsening respiratory status, was readmitted to the hospital on 12/01/2024. She says she has a cough with clear sputum production. She is on IV Rocephin and oral azithromycin, Trelegy 100 puff a day and p.r.n. albuterol 2.5 mg nebulized bronchodilator q.6 hours. PMH: hypertension, hyperlipidemia, GERD, subclavian artery stenosis status post stent, renal artery stenosis, peripheral artery disease status post right carotid endarterectomy 1995, left carotid endarterectomy, COPD, radiographic lung cancer status post XRT. Dr. Palomo treats her for lung cancer, completed SBRT 10/09/2022. She had a PET/CT scan 07/10/2024 showing Airspace opacities with increased activity in the lower lobes, right worse than left, consistent with radiation pneumonitis; Severe emphysema. Increased activity in normal-sized and borderline-enlarged right hilar and mediastinal lymph nodes, which may be reactive or metastatic disease. 12/08/24: patient remains very weak, she has been in bed, when I asked her to set up she barely moves her arms to try to hold on to the rales and cannot pull herself up. Overall she feels tired but status that her breathing is normal. She has minimal phlegm which is normal for her and no hemoptysis. Currently she is on 3 L nasal cannula saturations 94%. She is afebrile. White blood cell count 16.3, creatinine 1.34. 12/09/24: Patient states that at rest her breathing is normal. She produces phlegm 2 to 3 times a day with no hemoptysis. She is too weak to get out of bed. She cannot expectorate her phlegm. When I enter the room she is on 4 L nasal cannula saturations 98%. I placed her on 3 L and her saturations were 92%. Patient had an overnight oximetry on 4 L with recording duration of 8 hours and 30 minutes. Average saturation 91%. Low saturation 83%. Time with saturation less than or equal to 88% was 84 minutes. Oxygen desaturation index 1.7. Her weight today is 47.2. Pulmonary signed off the case, to finish Levaquin on 12/10/2024. Oncology call consult and last seen in the office in October of 2024 with worsening right lower lobe consolidation. Biopsy recommended but patient does not want to have biopsy done at would not like any treatment for cancer. She is also not ready for hospice and comfort care. Patient would like to go home and then will contact us with her decision regarding biopsy versus hospice comfort care. 12/15/2024: Re-consulted for continued leukocytosis and worsening oxygen requirements from 3 L to [address] scan chest abdomen and pelvis on 12/12/2024 with worsening right lower lobe lung mass compared to 11/13/2024 from 40.9 x 29.32 49.9 x 28 mm. Worsening adjacent superior right lower lobe lung mass from 1.4 cm to 1.7 cm. no pleural effusions, surrounding mass infiltrate unchanged, no new consolidations. Patient started on clindamycin on 12/13 and changed to meropenem on 12/13. Currently the patient denies fever, chills, rigors. She says she has had no change in her breathing over the last 2-3 days, no change in her cough, less phlegm production and no hemoptysis. When I entered the room she was on 4 L nasal cannula saturations 93%. I decreased her to 3 L nasal cannula her saturations were 89% and I placed her back on 4 L. She is afebrile. White blood cell count 19.3, creatinine 1.24, lipase is decreased from 339 yesterday to 171 today. Procalcitonin remains unchanged at 0.1 today and yesterday. Patient complains of fatigue, constipation, nausea any time she eats or drinks. Her debility has worsened and she can barely roll over in bed now. When I asked her to cough she could barely clear her throat. Lower extremity Dopplers demonstrate DVT in the distal right femoral vein. 19:29: Rapid response called and patient had V-tach rate of 200 status post cardioversion followed by respiratory distress. Chest x-ray with diffuse interstitial alveolar infiltrates on the right with minimal change since 12/10/2024. Patient treated with Bumex, BiPAP and required Ativan for anxiety on the BiPAP. ABG on BiPAP rate of 18 pressure 16/8 in 50% was 738/31/67. 12/16/2024: Patient currently is on BiPAP rate of 18 breathing 27, pressures 16/8 with tidal volume 870 and FiO2 50% with saturations 96% and says this is uncomfortable. She does open her eyes to command, shows 2 fingers on the right, raises left hand but does not show 2 fingers and wiggles toes bilaterally. She has cyanosis. she is afebrile. White blood cell count 24.8, creatinine 2.09. Output yesterday listed as 100 mL. I placed her on noninvasive ventilation with the AVAPS mode and adjusted the settings to comfort resulting in a rate of 14, tidal volume 500, inspiratory time 1.0, rise of 3 and 50% with saturations 94%. DATA: 12/15/24: EXAMINATION: US venous doppler [facility] DATE: 12/15/2024 16:18 INDICATION: edema . TECHNIQUE: Grayscale images without and with compression and Doppler images of the bilateral lower extremity veins were obtained. COMPARISON: 04/07/2004 FINDINGS: Thrombus in the distal right superficial femoral vein. The right common femoral vein, profunda (deep) femoral vein, popliteal vein, peroneal vein, posterior tibial veins, gastrocnemius vein, and greater saphenous vein are patent. The left common femoral vein, profunda (deep) femoral vein, femoral vein, popliteal vein, peroneal vein, posterior tibial veins, gastrocnemius vein, and greater saphenous vein are patent. IMPRESSION: Thrombus in the distal right superficial femoral vein. Otherwise patent lower pulmonary veins. 12/12/24: CT chest abdomen pelvis wo con Ordering provider: Kamilla Finney APRN History: . Unexplained leukocytosis, >O2 requirement, N/V . Comparison: November 13, 2024 Technique: CT chest without IV contrast. CT abdomen and pelvis without oral and IV contrast. The dose-length product was 352.57 mGy-cm. FINDINGS: The study is limited due to lack of IV contrast. CHEST: --VISUALIZED THORACIC INLET: Normal as visualized. --MEDIASTINUM: Aorta/coronary arteries: Moderate atheromatous disease. Heart/other: The heart is not enlarged. Trace of pericardial effusion is noted anteriorly. Lymph nodes: Right paratracheal lymph nodes seen measuring 2.2 and 1.8 cm. Right hilar lymphadenopathy is seen. Calcified subcarinal lymph nodes are seen. Precarinal lymph node is seen measuring 1.2 cm. Prevascular lymph nodes are seen with the largest measures 1.1 cm. --LUNGS: Soft tissue density is seen in the right lower lobe which is suggestive of a mass versus pneumonia. Follow-up and further evaluation advised. . Soft tissue density is seen in the right lower lobe just above the previous soft tissue density which may be a mass or focal pneumonia. No pneumothorax. Thickening of the septa is seen in the right upper and lower lobe which may indicate pneumonitis or edema. Extensive underlying emphysematous changes are noted. --MUSCULOSKELETAL: Soft tissues: The superficial soft tissues are normal. Bones: Age appropriate degenerative changes of the spine. ABDOMEN/PELVIS: --MUSCULOSKELETAL: Bones: Age appropriate degenerative changes of the spine. Superficial soft tissues: The superficial soft tissues are normal. --UPPER ABDOMINAL ORGANS: Liver: Normal. Gallbladder: Status post cholecystectomy. Spleen: Normal. Stomach/duodenum: Normal. Pancreas: Normal. Adrenals: Normal. Kidneys: Normal. Calcifications seen in the right and left kidney areas are most likely vascular. Minimal fullness of the left renal pelvis is seen. Thickening of the wall of the left renal pelvis is seen which may indicate ascending pyelonephritis. Clinical correlation advised. --PELVIC ORGANS: The bladder is normal. No bladder stones. --BOWEL AND MESENTERY: Colon: No evidence of diverticulitis. Fecal material is loaded in the colon. Appendix is not demonstrated.. Small Bowel: Normal. No obstruction. Peritoneum/mesentery: No free air or free fluid. No mesenteric lymphadenopathy. --RETROPERITONEUM: Severe atheromatous disease of the abdominal aorta. Slight aneurysmal dilatation of the distal aorta is seen measuring 2.8 cm. Stent graft is seen in the left renal artery. Stents are seen in the iliac arteries. No retroperitoneal lymphadenopathy. IMPRESSION: CHEST: 1. Hypodensity seen in the right lower lobe unchanged from previous examination which is most likely a mass. Pneumonia cannot be excluded. Another smaller density is seen just above the mentioned previously mass which also may be a mass or focal pneumonia. Follow-up to resolution and further evaluation advised. 2. Thickening of the septa in the right upper and lower lobe which may indicate pneumonitis versus edema. Follow-up advised. 3. Right hilar and mediastinal lymphadenopathy. 4. Underlying severe emphysematous changes. 5. Trace of pericardial effusion ABDOMEN/PELVIS: 1. No evidence of appendicitis, diverticulitis or intestinal obstruction. 2. Slightly dilated left renal pelvis with thickening of the wall which may indicate ascending pyelonephritis. Clinical correlation advised. 3. Severe atherosclerotic changes with slight aneurysmal dilatation seen in the distal aorta measuring 2.8 cm. * 12/04/2024; CXR Comparison: 12/01/2024 Clinical History: Hypoxia Findings: There is worsening hazy and interstitial pulmonary disease bilaterally, compatible worsening pulmonary edema. Probable underlying COPD or other chronic interstitial disease. Possible minimal left pleural effusion. Cardiomediastinal silhouette is stable. Bones and soft tissues are unremarkable. Impression: Worsening alveolar and interstitial pulmonary edema pattern. Correlate clinically for pneumonia. Underlying COPD or other chronic interstitial disease. Minimal left pleural effusion. 11/13/2024: CTA chest PE protocol History: 73 years Female with . shortness of breath . Comparison: October 20, 2024 Findings: PULMONARY ARTERIES: No pulmonary embolus. VISUALIZED THORACIC INLET: Normal. MEDIASTINUM: Aorta/coronary arteries: Mild atheromatous disease. Heart/other: The heart is not enlarged. Lymph nodes: Prevascular lymphadenopathy is seen with the largest measures 1.6 cm. Bilateral hilar lymphadenopathy more in the right side. Subcarinal calcified lymph notes. Calcified lymph node in the left hilum. LUNGS: Emphysematous changes of the lungs. A mass is seen in the right lower lobe measuring 4.1 x 2.9 cm. Further evaluation advised. Smaller nodule is seen medially in the right lower lobe measuring 1.4 cm. Minimal interstitial opacification is seen in the right middle lobe and right upper lobe. Interstitial opacification also seen around the mass in the right lower lobe. Minimal interstitial opacification the left lung base. Right pleural effusion. No pulmonary nodules . No pneumothorax. VISUALIZED UPPER ABDOMEN: Proximal abdominal aorta measures 3 cm. Stent is seen in the left renal artery. Status post cholecystectomy. Slightly prominent pancreatic duct. Prominent CBD measuring 1.1 cm.. Otherwise, the visualized upper abdomen is normal. MUSCULOSKELETAL: Soft tissues: The superficial soft tissues are normal. Bones: Age appropriate degenerative changes of the spine. Increased kyphosis. Osteopenia of the bones. IMPRESSION: 1. No pulmonary embolism. 2. Mass measuring 4.1 x 2.9 cm in the right lower lobe. Further evaluation advised. Smaller nodule is seen adjacent to this mass in the right lower lobe area. 3. interstitial and alveolar opacification in the right middle , lower and upper lobes and left lower lobe suggestive of pneumonitis. 4. Extensive emphysematous changes seen bilaterally. 5. Right hilar and mediastinal lymphadenopathy. 6. The proximal abdominal aorta measures 3 cm. 07/10/2024: EXAMINATION: PET skull to mid thigh DATE: 07/10/2024 12:18 INDICATION: Malignant neoplasm of lung. TECHNIQUE: Blood glucose level was 93 mg/dL. 10.966 mCi of 18-fluorodeoxyglucose (18-FDG) was administered i.v. Low dose computed tomography (CT) images were acquired from the base of the brain to the proximal thighs for attenuation correction and anatomic localization. Automated exposure control was employed. Dose-length product (DLP) was 805 mGy-cm. Positron emission tomography (PET) images were acquired in the same distribution. COMPARISON: PET/CT 06/01/2022, chest CT 06/18/2024, 05/07/23 FINDINGS: Head/neck: There are likely changes of ocular lens replacement surgeries. There are scattered areas of low attenuation in the cerebral white matter, likely chronic small vessel ischemic disease. 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 There are no pathologically enlarged lymph nodes. Chest: There is a stent in proximal left subclavian artery. There is severe emphysema. A calcified left lung nodule and calcified left hilar and mediastinal lymph nodes are consistent with old granulomatous disease. There are airspace opacities in the lower lobes, right worse than left, with increased activity. There is increased activity in normal-sized and borderline-enlarged right hilar and mediastinal lymph nodes. No pleural effusion. The heart size is normal. There are coronary artery calcifications. No pericardial effusion. Abdomen/pelvis/proximal thighs: The liver is normal. There are changes of cholecystectomy. Calcifications in the spleen are consistent with old granulomatous disease. The pancreas, adrenal glands, and kidneys are normal. There are stents in the left bilateral common iliac arteries and left external iliac artery. There are no dilated loops of bowel. 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 There is a stent in left renal artery. There are no pathologically enlarged lymph nodes. There is no free intraperitoneal fluid. There is no osseous malignancy. There is subcutaneous old fat necrosis in right buttock. IMPRESSION: 1. Airspace opacities with increased activity in the lower lobes, right worse than left, consistent with radiation pneumonitis. 2. Severe emphysema. 3. Increased activity in normal-sized and borderline-enlarged right hilar and mediastinal lymph nodes, which may be reactive or metastatic disease. 06/18/2024: EXAMINATION: CT diagnostic chest w con INDICATION: C34.31 - Malignant neoplasm of lower lobe, right bronchus... COMPARISON: 02/22/2024 and 09/11/2022 FINDINGS: Severe emphysema with biapical pleural-parenchymal scarring. Calcified nodule at the left apex along with calcified left hilar and mediastinal lymph nodes consistent with old granulomatous disease. There is septal line thickening bilaterally basilar lower lobes, right middle lobe and lingula. Interval increase in size of a high attenuation potentially enhancing 1.7 x 1.4 cm spiculated nodule in the superior segment of the right lower lobe which measured approximately 1.2 x 1.1 cm on 12/13/2023. No significant interval change in a more caudal and lower density peripheral bandlike region of consolidation extending approximately 6 cm medial laterally measuring up to 1.5 cm in thickness likely related to changes of chronic radiation pneumonitis. No pleural effusion. Heart size is normal. Atherosclerotic coronary artery calcific location. No pericardial effusion. Thoracic aorta is normal in caliber with no dissection. There is stenting at the origin of the left subclavian artery. No significant change since 09/11/2022 in mild right hilar lymphadenopathy which favors reactive or metastatic lymph nodes. No other pathologically enlarged thoracic lymphadenopathy. A few calcified splenic granulomata. Mild to moderate thoracic spondylosis with bridging osteophytes at multiple levels consistent with diffuse idiopathic skeletal hyperostosis (DISH). IMPRESSION: 1. Enlargement of a now 1.7 x 1.4 cm higher attenuation, likely enhancing spiculated nodule in the superior segment of the right lower lobe suspicious for progression of primary lung cancer. 2. No interval change in a more caudal peripheral band of consolidation in the right lower lobe likely related to chronic radiation fibrosis for reported prior treatment of an earlier mildly FDG avid nodule at this location suspicious for lung cancer. 3. Severe emphysema. 4. Mild right hilar lymphadenopathy unchanged since 09/11/2022 which in the absence of interval treatment would favor reactive over metastatic lymphadenopathy. 11/08/2023: Echo Summary 1. Left ventricular chamber dimension is normal. 2. Left ventricular systolic function is normal, estimated at 65-70%. 3. The left ventricular diastolic function is grade I diastolic dysfunction. 4. Global longitudinal strain is abnormal at -15 %. 5. Right ventricular systolic function is normal. 6. Left atrial chamber dimension is mildly enlarged. 7. There is mild tricuspid valve regurgitation. 8. There is mild pulmonic regurgitation. Left Ventricle Left ventricular chamber dimension is normal. Left ventricular systolic function is normal, estimated at 65-70%. There is no increased left ventricular wall thickness. The left ventricular diastolic function is grade I diastolic dysfunction. Global longitudinal strain is abnormal at -15 %. Right Ventricle Right ventricular chamber dimension is normal. Right ventricular systolic function is normal. Left Atria Left atrial chamber dimension is mildly enlarged. Right Atria Right atrial chamber dimension is normal. Atrial Septum Intact interatrial septum visualized by color flow imaging. Review of Systems Review of Systems: All systems reviewed & are unremarkable except as noted in HPI and below Constitutional: Constitutional: Reports no additional constitutional complaints Eyes: Eyes: Reports no additional eye complaints ENT: Reports system reviewed and no additional complaints, except as documented Cardiovascular: Cardiovascular: Reports no additional cardiovascular complaints Respiratory: Respiratory: Reports no additional respiratory complaints Gastrointestinal: Gastrointestinal: Reports no additional gastrointestinal complaints Musculoskeletal: Musculoskeletal: Reports no additional musculoskeletal complaints Neurologic: Reports system reviewed and no additional complaints, except as documented Psychiatric: Psychiatric: Reports no additional psychiatric complaints Endocrine: Endocrine: Reports no additional endocrine complaints Hematologic/Lymphatic: Hematologic/Lymphatic: Reports no additional hematologic/lymphatic complaints Allergic/Immunologic: Allergic/Immunologic: Reports no additional allergic/immunologic complaints Exam Const: General: cooperative and comfortable Orientation/consciousness: oriented to person, oriented to place and oriented to time Other: Debilitated HENMT: Head: normal to inspection Ears: hearing grossly normal bilaterally Eyes: General: appearance normal, both eyes and all related structures Neck: Neck: normal visual inspection Chest: Chest palpation & inspection: normal inspection of the chest Resp: Effort & Inspection: normal respiratory effort and able to speak in complete sentences Auscultation: no crackles, no rales, no rhonchi, no wheezes and diminished lung sounds Other: Decreased breath sounds. No wheezes. Cardio: Jugular venous distension: no JVD GI: Inspection: normal to inspection Skin: General skin exam: normal color Neuro: General: oriented to person, oriented to place and oriented to time Extrem: General: normal to inspection Psych: Appearance: grossly normal Objective Data Vital Signs Vital Signs: Vital Signs - 24 hr 12/15/24 14:00 12/15/24 14:00 12/15/24 14:10 Temperature 36.4 C 36.4 C Pulse Rate 111 H 111 H 110 H Respiratory Rate 16 16 18 Blood Pressure 137/60 137/60 130/58 L Pulse Oximetry 91 91 90 Oxygen Delivery Oxygen Flow Rate Fraction of Inspired Oxygen 12/15/24 19:28 12/15/24 19:45 12/15/24 19:48 Temperature 36.6 C Pulse Rate 133 H 64 Respiratory Rate 25 H 29 H 22 H Blood Pressure 120/67 94/54 L Pulse Oximetry 88 L 82 L Oxygen Delivery Nasal Cannula BiPAP Oxygen Flow Rate 7 Fraction of Inspired Oxygen 12/15/24 20:00 12/15/24 23:25 12/15/24 23:30 Temperature 36.1 C L Pulse Rate 110 H Respiratory Rate 29 H Blood Pressure 98/47 L Pulse Oximetry 95 96 Oxygen Delivery BiPAP Non-Rebreather Mask Oxygen Flow Rate 6 Fraction of Inspired Oxygen 12/15/24 23:45 12/15/24 23:49 12/16/24 00:13 Temperature Pulse Rate 123 H 114 H Respiratory Rate 29 H Blood Pressure Pulse Oximetry 95 93 Oxygen Delivery BiPAP BiPAP Oxygen Flow Rate Fraction of Inspired Oxygen 50 12/16/24 01:55 12/16/24 03:43 12/16/24 03:50 Temperature Pulse Rate 110 H Respiratory Rate Blood Pressure Pulse Oximetry 91 92 Oxygen Delivery BiPAP Nasal Cannula Oxygen Flow Rate 6 Fraction of Inspired Oxygen 50 12/16/24 04:00 12/16/24 04:00 12/16/24 05:00 Temperature Pulse Rate 107 H Respiratory Rate Blood Pressure Pulse Oximetry 92 93 Oxygen Delivery Nasal Cannula High Flow Nasal Cannula Oxygen Flow Rate 5 10 Fraction of Inspired Oxygen 12/16/24 05:15 12/16/24 05:55 12/16/24 07:58 Temperature 36.9 C Pulse Rate 108 H 109 H 111 H Respiratory Rate 22 H 27 H Blood Pressure 131/62 Pulse Oximetry 91 93 Oxygen Delivery BiPAP Oxygen Flow Rate Fraction of Inspired Oxygen 12/16/24 08:07 Temperature 36.4 C Pulse Rate 111 H Respiratory Rate 27 H Blood Pressure 108/38 L Pulse Oximetry 95 Oxygen Delivery Oxygen Flow Rate Fraction of Inspired Oxygen Intake/Output Intake/Output: Intake & Output 12/13/24 12/14/24 12/15/24 12/16/24 23:59 23:59 23:59 23:59 Intake Total 1310 250 300 Output Total 400 300 100 Balance 910 -50 200 Meds/Results Medications: Active Medications Generic Name Dose Route Start Last Admin Trade Name Freq PRN Reason Stop Dose Admin Acetaminophen 650 mg 12/01/24 22:27 12/11/24 08:26 Acetaminophen 325 Mg Tablet PO 650 mg Q6H PRN Administration Mild Pain (1-3) or Fever Atorvastatin Calcium 40 mg 12/02/24 09:00 12/15/24 09:29 Atorvastatin 40 Mg Tablet PO 40 mg DAILY LUCY Administration Benzocaine 1 lozenge 12/13/24 11:47 12/13/24 12:16 Benzocaine/Menthol (*Bkc) 18 Ea Lozenge PO 1 lozenge PRN PRN Administration Sore Throat Bisacodyl 10 mg 12/15/24 16:00 12/16/24 07:50 Bisacodyl 10 Mg Suppository RECTAL Not Given DAILY LUCY Clopidogrel Bisulfate 75 mg 12/02/24 09:00 12/15/24 09:29 Clopidogrel Bisulfate 75 Mg Tablet PO 75 mg DAILY LUCY Administration Clotrimazole 10 mg 12/13/24 15:00 12/15/24 20:54 Clotrimazole 10 Mg Troc PO Not Given 5 TIMES DAILY [facility] Diphenhydramine HCl 25 mg 12/13/24 15:36 Diphenhydramine Hcl Inj 50 Mg/Ml Vial IV PUSH Q12H PRN Itching Enoxaparin Sodium 30 mg 12/09/24 09:00 12/15/24 09:30 Enoxaparin 30 Mg/0.3 Ml Syringe SUB-Q 30 mg DAILY LUCY Administration Escitalopram Oxalate 10 mg 12/02/24 21:00 12/15/24 20:54 Escitalopram Oxalate 10 Mg Tablet PO 10 mg HS [facility] Administration Fluticasone/Umeclidinium/Vilanterol 1 puff 12/02/24 08:00 12/16/24 07:57 Fluticasone/Umeclidin/Vilanter 100-62.5-25 Mcg Ellipta INHALATION Not Given DAILYRT [facility] Furosemide 40 mg 12/07/24 17:00 12/11/24 08:27 Furosemide 40 Mg Tablet PO 40 mg BID LUCY Administration Guaifenesin 1,200 mg 12/08/24 21:00 12/15/24 20:54 Guaifenesin 12 Hr 600 Mg Tabcr PO Not Given Q12HR [facility] Meropenem 1 gm/ Sodium 100 mls @ 200 mls/hr 12/15/24 10:00 12/15/24 22:58 Chloride IVPB Infused Q12H LUCY Infusion Lorazepam 0.5 mg 12/14/24 19:26 Lorazepam Inj (*Crx) 2 Mg/Ml Vial IV PUSH 12/17/24 19:25 Q6H PRN nausea and vomting, 2nd line Melatonin 5 mg 12/02/24 21:00 12/15/24 20:55 Melatonin 5 Mg Tablet PO Not Given QHS [facility] Pantoprazole Sodium 20 mg 12/02/24 05:00 12/12/24 08:28 Pantoprazole Sod Sesquihydrate 20 Mg Tab PO 20 mg QAM PRN Administration Indigestion Polyethylene Glycol 17 gm 12/14/24 13:00 12/16/24 07:50 Polyethylene Glycol 3350 17 Gm Powd.Pack PO Not Given TID LUCY Senna 8.6 mg 12/14/24 17:00 12/16/24 07:50 Sennosides 8.6 Mg Tablet PO Not Given BID LUCY Trimethobenzamide HCl 200 mg 12/14/24 19:23 Trimethobenzamide Hcl 200 Mg/2 Ml Vial IM Q6H PRN Nausea And Vomiting Radiology Results: ITS Impressions Head CT 12/01/24 20:44 IMPRESSION: No acute intracranial process. Chest/Abdomen/Pelvis CT 12/12/24 15:41 IMPRESSION: CHEST: 1. Hypodensity seen in the right lower lobe unchanged from previous examination which is most likely a mass. Pneumonia cannot be excluded. Another smaller density is seen just above the mentioned previously mass which also may be a mass or focal pneumonia. Follow-up to resolution and further evaluation advised. 2. Thickening of the septa in the right upper and lower lobe which may indicate pneumonitis versus edema. Follow-up advised. 3. Right hilar and mediastinal lymphadenopathy. 4. Underlying severe emphysematous changes. 5. Trace of pericardial effusion ABDOMEN/PELVIS: 1. No evidence of appendicitis, diverticulitis or intestinal obstruction. 2. Slightly dilated left renal pelvis with thickening of the wall which may indicate ascending pyelonephritis. Clinical correlation advised. 3. Severe atherosclerotic changes with slight aneurysmal dilatation seen in the distal aorta measuring 2.8 cm. Venous Doppler Study 12/15/24 16:26 IMPRESSION: Thrombus in the distal right superficial femoral vein. Otherwise patent lower pulmonary veins. Chest X-Ray 12/15/24 19:27 IMPRESSION: Right lung opacities may represent asymmetric edema or infection, overlying chronic severe emphysema. Labs Labs: Laboratory Results - last 24 hr 12/15/24 12/15/24 12/15/24 19:28 19:52 20:42 WBC RBC Hgb Hct MCV MCH MCHC RDW Plt Count MPV Immature Gran % (Auto) Neut % (Auto) Lymph % (Auto) Brule % (Auto) Eos % (Auto) Baso % (Auto) Lymph # (Auto) Brule # (Auto) Eos # (Auto) Baso # (Auto) Abs Immat Gran (auto) Absolute Neuts (auto) Absolute Nucleated RBC Nucleated RBC % Puncture Site Cancelled Right brachial ABG pH Cancelled 7.381 ABG pCO2 Cancelled 30.8 L ABG pO2 Cancelled 67.2 L ABG PO2/FiO2 Ratio Cancelled 1.34 ABG HCO3 Cancelled 17.9 L ABG O2 Saturation Cancelled 93.4 L ABG O2 Content Cancelled 16.6 ABG Base Excess Cancelled -6.1 A-a Gradient Cancelled 254.7 Oxyhemoglobin Cancelled 90.8 Total Hemoglobin Cancelled 13.0 O2 Delivery Device Cancelled Bipap O2 Liters/Min Cancelled Not Reportable FiO2 Cancelled 50 Expiratory Pressure 8 Inspiratory Pressure 16 Sodium Potassium Chloride Carbon Dioxide Anion Gap BUN Creatinine Estim Creat Clear Calc Estimated GFR Glucose POC Capillary Glucose 115 H Calcium Magnesium 12/16/24 03:56 WBC 24.8 H RBC 4.11 L Hgb 12.3 Hct 41.0 MCV 99.8 MCH 29.9 MCHC 30.0 L RDW 16.7 H Plt Count 246 MPV 10.3 Immature Gran % (Auto) 4.6 H Neut % (Auto) 82.5 H Lymph % (Auto) 5.2 L Brule % (Auto) 7.7 Eos % (Auto) 0.0 Baso % (Auto) 0.0 L Lymph # (Auto) 1.30 Brule # (Auto) 1.9 H Eos # (Auto) 0.0 Baso # (Auto) 0.0 Abs Immat Gran (auto) 1.13 H Absolute Neuts (auto) 20.4 H Absolute Nucleated RBC 0.040 H Nucleated RBC % 0.2 Puncture Site ABG pH ABG pCO2 ABG pO2 ABG PO2/FiO2 Ratio ABG HCO3 ABG O2 Saturation ABG O2 Content ABG Base Excess A-a Gradient Oxyhemoglobin Total Hemoglobin O2 Delivery Device O2 Liters/Min FiO2 Expiratory Pressure Inspiratory Pressure Sodium 155 H Potassium 4.3 Chloride 121 H Carbon Dioxide 19 L Anion Gap 15 H BUN 51 H D Creatinine 2.09 H Estim Creat Clear Calc 15 Estimated GFR 23 L Glucose 130 H POC Capillary Glucose Calcium 9.4 Magnesium 3.2 H
[2024-12-16 09:37] LABS: NT Pro B Type Natriuretic Pept 10900 pg/mL (19.9-100)
--- NOTE | 2024-12-16 09:40 | PCRCNOTE ---
Patient transported to CT on 10L HFNC. Nurse stated that Dr. Bañuelos said it was okay to take patient on HFNC if she's alert.
[2024-12-16] MEDS: DEXTROSE 5% 1,000 ML 1,000 ML 75 ML IV CONT (09:58)
[2024-12-16] MEDS: MEROPENEM 1 GM in SODIUM CHLORIDE 0.9% IV 100 ML 200 ML IVPB (09:59)
--- NOTE | 2024-12-16 10:02 | PCNFU ---
Nutrition Follow-Up Complete: Moderate protein calorie malnutrition related to reduced appetite and intake as evidenced by pt report of poor po intake greater than 1 month, a significant weight loss of -5% x 1 month PO intake greater than 50% of meals and supplement - Goal is not being met, pt is NPO for Bipap Goal: Pt current nutrition is Heart healthy diet on hold. NPO for Bipap. Nutrition recommendation: Continue diet when pt is medically able Last recorded weight is 45 kg. Bowel Motility: +2 BM 12/16 Labs Reviewed: Na 155, BUN 51, Cre 2.09, Glu 130, Mag 3.2 Meds Noted: Lasix, reglan, lovenox Skin: No pressure injuries Additional Notes: Not able to eat because of Bipap. Appetite was poor. Pt was getting nutritional ice cream BID. Continue to follow for plan of care Monitor intake, wt, labs. Follow up in 3 days
[2024-12-16] MEDS: ATORVASTATIN 40 MG TABLET PO (10:06)
--- NOTE | 2024-12-16 10:45 | PM.CNNEP ---
Assessment and Plan Assessment and plan (1) Acute kidney injury: Code(s): N17.9 - Acute kidney failure, unspecified Status: Acute Plan The patient has suffered another acute insult to her kidneys that appears to have worsened the last 24 hours. As mentioned previously, she had acute kidney injury on admission to the hospital 2 weeks ago which of Ensure resolved but then has been slowly deteriorating once again in the last several days. I suspect her overall renal decline is related to her acute and chronic medical issues, particularly with her recent decline in the last 24 hours in association with her V-tach episode requiring cardioversion and more aggressive therapy to improve her respiratory status given its decline as well. Under normal circumstances, I would proceed with further testing including urine electrolytes, renal ultrasound, and further imaging but as already mentioned, I am unclear if this will change her long-term prognosis. Furthermore, it would seem that blood nursing staff as well as physicians have a or a been involved in her care I reached out to family to discuss goals of therapy and level of care given her ongoing decline despite aggressive medical therapy that has been instituted for last 2 weeks. I discussed the case with Dr. Sharona cartagena the and he will let me know on what the family decides that of course will determine what other testing I may do depending on their response. I will continue to follow the patient with you while he remains hospitalized and make further recommendations as deemed necessary. Thank you for allowing me to participate in the care of this patient. History of Present Illness Reason for Consult Consult date: 12/16/24 Reason for consult: acute renal failure and hypernatremia Chief Complaint Chief complaint: CARINA, Pneumonia, Hyperkalemia History of Present Illness Narrative: All of the information that I have obtained is from review of the electronic medical record as well as discussion with the physician/nurses involved in the patient's care as the patient is unable to give me any meaningful history as she is currently on BiPAP therapy. The patient is a 73-year-old female with extensive past medical history as noted below who presented to the emergency department via EMS from [facility] for evaluation of weakness. The patinet was recently admitted to [facility] several weeks ago with hypoxia and presumed postobstructive pneumonia related to a right lower lobe lung mass. She was transferred to [facility] upon discharge. She has been participating in rehab and doing well however her blood pressures have been soft at times and her lisinopril was decreased. On the day of admission, a rapid response was called due to weakness noted on her left side. She also had a cough which is chronic for her. No reported vertigo, syncope, near syncope, visual changes, facial droop, dysphagia, dysarthria, paresthesias, and change in weakness from baseline. No nausea, vomiting, diarrhea, or dysuria mentioned. Due to her change in clinical status, she was sent to the ER for further assessment. In the ED: Vital signs on arrival include temperature 97.3?, blood pressure 101/49, pulse 56, respiratory rate 14, SpO2 98% on 2 L nasal cannula. Labs were significant for WBC count of 16.3, sodium 135, potassium 5.5, BUN 36, creatinine 1.58, lactic acid 1.7. Trace ketones noted in the urine. She tested negative for influenza, RSV, and COVID. Chest x-ray showed stable right lower lobe masses and interstitial opacities in the peripheral and lower right lung. Brain CT was negative for acute findings but did note stable, chronic encephalomalacia in the right hemisphere and old lacunar focal lacunar infarct in the right basal ganglia. She was given a nebulizer treatment, 1 L normal saline, methylprednisolone, ceftriaxone, and doxycycline and she is being admitted in setting with acute kidney injury and hyperkalemia. Since her admission almost 2 weeks ago, patient's overall clinical status was initially improving but then clinically deteriorated in the last 24 hours. She apparently had an episode of V-tach that required cardioversion and since that time, her respiratory status has declined even further. As noted above, she initially had acute kidney injury/acute renal failure that resolved but now is slowly deteriorated and has worsened the last 24 hours as well. Renal consultation was requested due to her acute kidney injury/acute renal failure. As mentioned, her renal function did eventually normalize but then over the last several days her renal function has been slowly deteriorating and acutely worsened in the last 24 hours in conjunction with her V-tach episode, cardioversion, and further decline in respiratory status with the patient currently being BiPAP dependent. From review her records, it would seem that her overall clinical condition has been declining since her admission to the hospital and has not really significantly improved over the past 2 weeks. From my discussion with the nursing staff as well as the attending physician, the patient's family is being called to discuss level of care and goals of therapy given her significant deterioration in the last 24 hours. Currently, at the time my evaluation, she is on BiPAP therapy and somnolent and unable to communicate with me very effectively. Review of Systems Review of Systems: As per HPI. [facility] Past Medical History Medical History (Updated 12/16/24 @ 19:46 by Winnie Dorsey DO) Mediastinal lymphadenopathy Nonobstructive atherosclerosis of coronary artery Cerebrovascular accident Tobacco abuse Carotid artery disease Peripheral vascular disease Chronic obstructive pulmonary disease Transient ischemic attack Gastroesophageal reflux disease Hypertension Osteoporosis History of radiation therapy right lower lobe 2022 Malignant neoplasm of lower lobe, right bronchus or lung Depression Dyslipidemia Anxiety Surgical History Surgical History (Updated 12/01/24 @ 20:24 by Jacqui Shen PA-C) History of bilateral carotid endarterectomy Status post angioplasty with stent iliac, subclavian, renal arteries History of cholecystectomy History of total hysterectomy with bilateral salpingo-oophorectomy (BSO) Family History Family History Sibling Cancer of kidney Sibling Hypertension Father Hypertension Social History Social History Social History: Surrogate medical decision maker: Yaakov Bocanegra, son. Code status: Full code. Smoking packs per day: 2 Smoking cigarettes per day: 40.0 Years smoked: 40 Smoking pack-years: 80.00 Smoking status: Never smoker Tobacco type: cigarettes Second hand tobacco smoke exposure: No Additional smoking assessment comments: weaning off cigarettes Alcohol intake: never Drinks per week: 5 Substance use: never Substance use type: does not use Do You Feel Safe in your Home?: Yes Lack of Transportation: No Lack of Food: Never True Current Housing: I Have Housing Concerned About Future Housing: No Difficulty Paying Gas/Electric Bills: No Difficulty Paying for Meds: No Currently Unemployed: No Education: High School Diploma/GED Difficulty w/ Childcare or Family Care: No Living arrangements: alone Occupation/Education: retired Spiritual care concerns: No Meds Home Medications and Allergies Home Medications ?Medication ?Instructions ?Recorded ?Confirmed ?Type melatonin 5 mg capsule 5 mg PO QHS 08/29/22 12/17/24 History atorvastatin 40 mg tablet 40 mg PO DAILY 90 days #90 tabs 08/13/24 12/17/24 Rx clopidogrel 75 mg tablet (Plavix) 75 mg PO DAILY #90 tabs 08/13/24 12/17/24 Rx lisinopril 40 mg tablet 40 mg PO QAM 90 days #90 tabs 08/13/24 12/17/24 Rx escitalopram oxalate 10 mg tablet 10 mg PO HS #90 tabs 09/29/24 12/17/24 Rx pantoprazole 20 mg tablet,delayed 20 mg PO QAM PRN Indigestion #90 09/29/24 12/17/24 Rx release tabs carvedilol 12.5 mg tablet (Coreg) 12.5 mg PO Q12HR #60 tabs 11/21/24 12/17/24 Rx fluticasone fur. 100 mcg-umeclid 1 inh inhalation DAILY #60 ea 11/21/24 12/17/24 Rx 62.5 mcg-vilant 25 mcg inhalat.powder (Trelegy Ellipta) furosemide 40 mg tablet 40 mg PO QAM #14 tabs 11/21/24 12/17/24 Rx guaifenesin 600 mg tablet, 600 mg PO Q12H PRN congestion 11/21/24 12/17/24 History extended release 12 hr acetaminophen 500 mg capsule 500 mg PO Q4H PRN pain 12/02/24 12/17/24 History albuterol sulfate 1.25 mg/3 mL 2.5 mg inhalation Q6H 12/02/24 12/17/24 History solution for nebulization dronabinol 2.5 mg capsule 2.5 mg PO BID 12/02/24 12/17/24 History enoxaparin 40 mg/0.4 mL 40 mg subcut DAILY 12/02/24 12/17/24 History subcutaneous syringe ondansetron HCl 4 mg tablet 4 mg PO Q6H PRN nausea and vomiting 12/02/24 12/17/24 History potassium chloride 20 mEq 20 meq PO DAILY 12/02/24 12/17/24 History tablet,extended release(part/cryst) (Klor-Con M) Allergies Allergy/AdvReac Type Severity Reaction Status Date / Time Penicillins Allergy Severe BREATHING Verified 12/04/24 14:03 DIFFICULTY, SWELLING Vital Signs Vital Signs Temp Pulse Resp BP Pulse Ox O2 Del Method O2 Flow Rate 12/16/24 10:00 107 H 12/16/24 09:27 108 H 27 H 96 BiPAP 12/16/24 08:07 97.6 F 111 H 27 H 108/38 L 95 12/16/24 08:00 107 H 12/16/24 07:58 111 H 27 H 93 BiPAP 12/16/24 05:55 109 H 12/16/24 05:15 98.5 F 108 H 22 H 131/62 91 12/16/24 05:00 93 High Flow Nasal Cannula 10 12/16/24 04:00 107 H 12/16/24 04:00 92 Nasal Cannula 5 12/16/24 03:50 92 Nasal Cannula 6 12/16/24 03:43 91 BiPAP 12/16/24 01:55 110 H 12/16/24 00:13 114 H 12/15/24 23:49 93 BiPAP 12/15/24 23:45 123 H 29 H 95 BiPAP 12/15/24 23:30 97.0 F L 110 H 29 H 98/47 L 96 12/15/24 23:25 95 Non-Rebreather Mask 6 12/15/24 20:00 BiPAP 12/15/24 19:48 97.8 F 64 22 H 94/54 L 82 L 12/15/24 19:45 29 H BiPAP 12/15/24 19:28 133 H 25 H 120/67 88 L Nasal Cannula 7 12/15/24 14:10 110 H 18 130/58 L 90 12/15/24 14:00 97.6 F 111 H 16 137/60 91 12/15/24 14:00 97.6 F 111 H 16 137/60 91 Exam Narrative: GENERAL APPEARANCE: elderly and frail appearing female; lethargic and on BiPAP HEENT: normocephalic, atraumatic, normal conjunctiva and sclera, nares patient NECK: no lymphadenopathy, thyromegaly, or JVD MOUTH: normal lips, teeth, and gums CARDIOVASCULAR: tachycardic, normal S1 and S2, no rub RESPIRATORY: coarse and decreased/diminished breath sounds ABDOMEN: soft, nontender, nondistended, positive bowel sounds present EXTREMITIES: no evidence of cyanosis, clubbing, or edema NEUROLOGICAL: unable to assess - lethargic Results Lab Results 12/16/24 03:56 12/16/24 03:56 Lab results: Most recent lab results ABG pH 7.381 (7.350-7.450) 12/15/24 20:42 ABG pCO2 30.8 mmHg (35.0-45.0) L 12/15/24 20:42 ABG pO2 67.2 mmHg (80.0-100.0) L 12/15/24 20:42 ABG HCO3 17.9 mEq/l (22.0-26.0) L 12/15/24 20:42 ABG O2 Saturation 93.4 % (95.0-100.0) L 12/15/24 20:42 Calcium 9.4 mg/dL (8.4-10.2) 12/16/24 03:56 Phosphorus 2.5 mg/dL (2.5-4.5) 12/15/24 07:19 Magnesium 3.2 mg/dL (1.6-2.3) H 12/16/24 03:56 Urine Creatinine 114.8 mg/dL 12/12/24 06:20
--- NOTE | 2024-12-16 11:03 | P.CONCA_ITS ---
Assessment and Plan Assessment and plan (1) PVT (paroxysmal ventricular tachycardia): Code(s): I47.20 - Ventricular tachycardia, unspecified Status: Acute Assessment and Plan: Recheck echo as her NTproBNP is high now. Would benefit from beta dalila as she was on Carvedilol at home. Start Metoprolol Tartate 25 mg PO BID if able to take PO, otherwise 2.5 mg IV every 6 hours. Her regular life enrichment specialist is with [facility]. (2) HTN (hypertension): Qualifiers: Hypertension type: primary hypertension Qualified Code(s): I10 - Essential (primary) hypertension Code(s): I10 - Essential (primary) hypertension Status: Acute Assessment and Plan: Stable. (3) Dyslipidemia: Code(s): E78.5 - Hyperlipidemia, unspecified Status: Acute Assessment and Plan: On Atorvastatin. (4) PAD (peripheral artery disease): Code(s): I73.9 - Peripheral vascular disease, unspecified Status: Acute Assessment and Plan: Stable. (5) Right leg DVT: Code(s): I82.401 - Acute embolism and thrombosis of unspecified deep veins of right lower extremity Status: Acute Assessment and Plan: On Lovenox. (6) Pneumonia: Qualifiers: Laterality: right Lung location: lower lobe of lung Pneumonia type: d ue to unspecified organism Qualified Code(s): J18.9 - Pneumonia, unspecified organism Code(s): J18.9 - Pneumonia, unspecified organism Status: Acute Assessment and Plan: On antibiotics. (7) Acute kidney injury: Code(s): N17.9 - Acute kidney failure, unspecified Status: Acute Assessment and Plan: Nephrology consulted. She has hypernatremia. History of Present Illness History of Present Illness Consult date/time: 12/16/24 11:03 Reason For Visit: CARINA, Pneumonia, Hyperkalemia Narrative: 74 yr old woman presents to hospital with weakness. She has a history of PAD with stents in abdominal aorta to femoral arteries, bilateral CEA, hypertension, dyslipidemia, diastolic dysfunction, COPD, right lobe mass, right leg DVT. Her regular life enrichment specialist is with [facility]. Reason for consult is she had VT last evening necessitating synchronized cardioversion. She is unable to provide me with information as she appears lethargic. Eyes open but non-verbal. All information obtained from chart. She is being treated for pneumonia. She has hypernatremia and Acute renal failure. She is currently in sinus tachycardia. Review of rhythm strip appears it was either SVT with aberrancy or VT last evening. Review of Systems 2 Review of Systems: ROS unobtainable: Yes unobtainable due to medical condition [facility] Past Medical History Medical History (Updated 12/16/24 @ 11:09 by Sj Vang, ) Mediastinal lymphadenopathy Nonobstructive atherosclerosis of coronary artery Cerebrovascular accident Tobacco abuse Carotid artery disease Peripheral vascular disease Chronic obstructive pulmonary disease Transient ischemic attack Gastroesophageal reflux disease Hypertension Osteoporosis History of radiation therapy right lower lobe 2022 Malignant neoplasm of lower lobe, right bronchus or lung Depression Dyslipidemia Anxiety Surgical History Surgical History (Updated 12/01/24 @ 20:24 by Jacqui Shen PA-C) History of bilateral carotid endarterectomy Status post angioplasty with stent iliac, subclavian, renal arteries History of cholecystectomy History of total hysterectomy with bilateral salpingo-oophorectomy (BSO) Family History Family History Sibling Cancer of kidney Sibling Hypertension Father Hypertension Social History Social History Social History: Surrogate medical decision maker: Yaakov Bocanegra, izzy. Code status: Full code. Smoking packs per day: 2 Smoking cigarettes per day: 40.0 Years smoked: 40 Smoking pack-years: 80.00 Smoking status: Never smoker Tobacco type: cigarettes Second hand tobacco smoke exposure: No Additional smoking assessment comments: weaning off cigarettes Alcohol intake: never Drinks per week: 5 Substance use: never Substance use type: does not use Do You Feel Safe in your Home?: Yes Lack of Transportation: No Lack of Food: Never True Current Housing: I Have Housing Concerned About Future Housing: No Difficulty Paying Gas/Electric Bills: No Difficulty Paying for Meds: No Currently Unemployed: No Education: High School Diploma/GED Difficulty w/ Childcare or Family Care: No Living arrangements: alone Occupation/Education: retired Spiritual care concerns: No Meds Home Medications and Allergies Home Medications ?Medication ?Instructions ?Recorded ?Confirmed ?Type melatonin 5 mg capsule 5 mg PO QHS 08/29/22 12/02/24 History atorvastatin 40 mg tablet 40 mg PO DAILY 90 days #90 tabs 08/13/24 12/02/24 Rx clopidogrel 75 mg tablet (Plavix) 75 mg PO DAILY #90 tabs 08/13/24 12/02/24 Rx lisinopril 40 mg tablet 40 mg PO QAM 90 days #90 tabs 08/13/24 12/02/24 Rx escitalopram oxalate 10 mg tablet 10 mg PO HS #90 tabs 09/29/24 12/02/24 Rx pantoprazole 20 mg tablet,delayed 20 mg PO QAM PRN Indigestion #90 09/29/24 12/02/24 Rx release tabs carvedilol 12.5 mg tablet (Coreg) 12.5 mg PO Q12HR #60 tabs 11/21/24 12/02/24 Rx fluticasone fur. 100 mcg-umeclid 1 inh inhalation DAILY #60 ea 11/21/24 12/02/24 Rx 62.5 mcg-vilant 25 mcg inhalat.powder (Trelegy Ellipta) furosemide 40 mg tablet 40 mg PO QAM #14 tabs 11/21/24 12/02/24 Rx guaifenesin 600 mg tablet, 600 mg PO Q12H PRN congestion 11/21/24 12/02/24 History extended release 12 hr acetaminophen 500 mg capsule 500 mg PO Q4H PRN pain 12/02/24 12/02/24 History albuterol sulfate 1.25 mg/3 mL 2.5 mg inhalation Q6H 12/02/24 12/02/24 History solution for nebulization dronabinol 2.5 mg capsule 2.5 mg PO BID 12/02/24 12/02/24 History enoxaparin 40 mg/0.4 mL 40 mg subcut DAILY 12/02/24 12/02/24 History subcutaneous syringe ondansetron HCl 4 mg tablet 4 mg PO Q6H PRN nausea and vomiting 12/02/24 12/02/24 History potassium chloride 20 mEq 20 meq PO DAILY 12/02/24 12/02/24 History tablet,extended release(part/cryst) (Klor-Con M) Allergies Allergy/AdvReac Type Severity Reaction Status Date / Time Penicillins Allergy Severe BREATHING Verified 12/04/24 14:03 DIFFICULTY, SWELLING Vital Signs Vital Signs - 24 hr 12/15/24 14:00 12/15/24 14:00 12/15/24 14:10 Temperature 97.6 F 97.6 F Pulse Rate 111 H 111 H 110 H Respiratory Rate 16 16 18 Blood Pressure 137/60 137/60 130/58 L Pulse Oximetry 91 91 90 Oxygen Delivery Oxygen Flow Rate Fraction of Inspired Oxygen 12/15/24 19:28 12/15/24 19:45 12/15/24 19:48 Temperature 97.8 F Pulse Rate 133 H 64 Respiratory Rate 25 H 29 H 22 H Blood Pressure 120/67 94/54 L Pulse Oximetry 88 L 82 L Oxygen Delivery Nasal Cannula BiPAP Oxygen Flow Rate 7 Fraction of Inspired Oxygen 12/15/24 20:00 12/15/24 23:25 12/15/24 23:30 Temperature 97.0 F L Pulse Rate 110 H Respiratory Rate 29 H Blood Pressure 98/47 L Pulse Oximetry 95 96 Oxygen Delivery BiPAP Non-Rebreather Mask Oxygen Flow Rate 6 Fraction of Inspired Oxygen 12/15/24 23:45 12/15/24 23:49 12/16/24 00:13 Temperature Pulse Rate 123 H 114 H Respiratory Rate 29 H Blood Pressure Pulse Oximetry 95 93 Oxygen Delivery BiPAP BiPAP Oxygen Flow Rate Fraction of Inspired Oxygen 50 12/16/24 01:55 12/16/24 03:43 12/16/24 03:50 Temperature Pulse Rate 110 H Respiratory Rate Blood Pressure Pulse Oximetry 91 92 Oxygen Delivery BiPAP Nasal Cannula Oxygen Flow Rate 6 Fraction of Inspired Oxygen 50 12/16/24 04:00 12/16/24 04:00 12/16/24 05:00 Temperature Pulse Rate 107 H Respiratory Rate Blood Pressure Pulse Oximetry 92 93 Oxygen Delivery Nasal Cannula High Flow Nasal Cannula Oxygen Flow Rate 5 10 Fraction of Inspired Oxygen 12/16/24 05:15 12/16/24 05:55 12/16/24 07:58 Temperature 98.5 F Pulse Rate 108 H 109 H 111 H Respiratory Rate 22 H 27 H Blood Pressure 131/62 Pulse Oximetry 91 93 Oxygen Delivery BiPAP Oxygen Flow Rate Fraction of Inspired Oxygen 12/16/24 08:07 12/16/24 09:27 Temperature 97.6 F Pulse Rate 111 H 108 H Respiratory Rate 27 H 27 H Blood Pressure 108/38 L Pulse Oximetry 95 96 Oxygen Delivery BiPAP Oxygen Flow Rate Fraction of Inspired Oxygen Exam 2 Const: General: lethargic Resp: Auscultation: wheezes and diminished lung sounds Cardio: Rate: tachycardic Rhythm: regular rhythm Heart sounds: no murmurs GI: GI Palp: No abdominal tenderness and Yes Soft to palpation Extrem: Right lower extremity: no edema Left lower extremity: no edema Results Labs and Meds 12/16/24 03:56 12/16/24 03:56 Lab results: CBC 12/16/24 Range/Units 03:56 WBC 24.8 H (4.5-10.0) K/mm3 RBC 4.11 L (4.2-5.4) M/mm3 Hgb 12.3 (12.0-15.0) g/dL Hct 41.0 (37.0-47.0) % Plt Count 246 (150-375) k/mm3 Lymph # (Auto) 1.30 (0.9-3.2) K/mm3 [place] # (Auto) 1.9 H (0.1-0.6) K/mm3 Eos # (Auto) 0.0 (0-0.3) K/mm3 Baso # (Auto) 0.0 (0.0-0.1) K/mm3 Comprehensive Metabolic Panel 12/16/24 Range/Units 03:56 Sodium 155 H (137-145) mmol/L Potassium 4.3 (3.4-5.0) mmol/L Chloride 121 H (98-107) mmol/L Carbon Dioxide 19 L (22-30) mmol/L BUN 51 H D (7-17) mg/dL Creatinine 2.09 H (0.7-1.0) mg/dL Glucose 130 H (65-110) mg/dL Calcium 9.4 (8.4-10.2) mg/dL Intake and Output 12/15/24 12/16/24 12/16/24 23:59 07:59 15:59 Intake Total 200 Output Total 50 Balance 150 Intake: IV 100 Meropenem 1 gm In Sodium 100 Chloride 0.9% IV 100 ml @ 200 mls/hr IVPB Q12H [facility] Rx#: [id number] Oral 100 Output: Catheter Urine 50 External/Condom 50 Other: Number of Bowel Movements Today 1 3 Patient Weight 12/16/24 23:59 Weight 45 kg
[2024-12-16] MEDS: ENOXAPARIN 60 MG/0.6 ML SYRINGE 45 MG SUB-Q (12:03)
--- NOTE | 2024-12-16 12:34 | PCOTNOTE ---
Per RN, Patient had a rapid response last night on med/surg. was transferred down to IMU. Patient is not ready for therapy services at this time. Patient is very lethargic, on a BIPAPP.
--- NOTE | 2024-12-16 14:57 | P.PNIM_ITS ---
Progress Note: A&P Assessment and Plan (1) Acute respiratory failure: Code(s): J96.00 - Acute respiratory failure, unspecified whether with hypoxia or hypercapnia Status: Acute Assessment and Plan: -12/05 Seems to be responding to IV furosemide due to possible volume overload with diastolic dysfunction (EF 60-65%) -Continue diuresis, monitor labs. Azithromycin + Ceftriaxone started 12/04, switched to PO Augmentin 12/06 -As procalcitonin was 0.5 12/02, 12/06 switch to PO amoxiclav for possible recurrent post-obstructive pneumonia -12/04-12/13 WBC trending up on levaquin, completed and continues to uptrend. May be reactive to malignancy vs new infection -No oxygen at baseline prior to admission. -12/13 pulmonology reconsulted and recommended starting meropenem. Discussed with Dr. Bañuelos and he is wanting to do Meropenem for 5 days, although he is not convinced this is post obstructive pneumonia. Covid/Flu/RSV negative 12/12 D-dimer <0.27 and on Lovenox for DVT prophylaxis Troponin elevated to 0.071 --> 0.063 likely demand 12/11 Chest Xray Chronic interstitial lung disease with improved left-sided pleural effusion, as detailed above. 12/12 CT chest/abd/pelvis CHEST: 1. Hypodensity seen in the right lower lobe unchanged from previous examination which is most likely a mass. Pneumonia cannot be excluded. Another smaller density is seen just above the mentioned previously mass which also may be a mass or focal pneumonia. Follow-up to resolution and further evaluation advised. 2. Thickening of the septa in the right upper and lower lobe which may indicate pneumonitis versus edema. Follow-up advised. 3. Right hilar and mediastinal lymphadenopathy. 4. Underlying severe emphysematous changes. 5. Trace of pericardial effusion ABDOMEN/PELVIS: 1. No evidence of appendicitis, diverticulitis or intestinal obstruction. 2. Slightly dilated left renal pelvis with thickening of the wall which may indicate ascending pyelonephritis. Clinical correlation advised. 3. Severe atherosclerotic changes with slight aneurysmal dilatation seen in the distal aorta measuring 2.8 cm. PLAN --Increasing oxygen requirements 3<4<5L LPM by NC. Wean as tolerated --Sputum culture if able to obtain, cough has remained nonproductive or clear --Antibiotics for pneumonia, discussed with Dr. Bañuelos --Patient does not wish to continue vest treatments due to nausea 12/16/2024: Worsening respiratory status. Now requiring BiPAP treatment. Chest x-ray reviewed. Discussed with Pulmonary. On treatment for pneumonia with meropenem which will be continued. Worsening leukocytosis. Discussed with family. Patient went into paroxysm of ventricular tachycardia that required cardioversion 12/15/2024. Cardiology consulted. Add on beta-dalila. CT head for somnolence negative for any intracranial bleed. For right leg DVT will give therapeutic dose of Lovenox. Hypernatremia worsening started on D5 water. CARINA worsening with creatinine up to 2. Diuresis on hold currently. Overall poor prognosis with declining respiratory status along with paroxysmal ventricular tachycardia. Discussed with the son and decision was made to transition to [facility] based care/hospice. Comfort care will be initiated. Will also consult hospice (2) Elevated WBC count: Code(s): D72.829 - Elevated white blood cell count, unspecified Status: Acute Assessment and Plan: WBC still 19 -CT CAP 12/12 possible pneumonia or acute pyelonephritis -Urine culture pending 12/15; pt asymptomatic -BC pending -Strep swab neg -Nasal MRSA not detected 12/16/2024: Worsening respiratory status. Now requiring BiPAP treatment. Chest x-ray reviewed. Discussed with Pulmonary. On treatment for pneumonia with meropenem which will be continued. Worsening leukocytosis. Discussed with family. Patient went into paroxysm of ventricular tachycardia that required cardioversion 12/15/2024. Cardiology consulted. Add on beta-dalila. CT head for somnolence negative for any intracranial bleed. For right leg DVT will give therapeutic dose of Lovenox. Hypernatremia worsening started on D5 water. CARINA worsening with creatinine up to 2. Diuresis on hold currently. Overall poor prognosis with declining respiratory status along with paroxysmal ventricular tachycardia. Discussed with the son and decision was made to transition to comfort based care/hospice. Comfort care will be initiated. Will also consult hospice (3) Hospital-acquired pneumonia: Code(s): J18.9 - Pneumonia, unspecified organism; Y95 - Nosocomial condition Status: Acute Assessment and Plan: CT concerning for pneumonia with increased oxygen requirements No LE edema or leg pain, no chest pain --Started clindamycin 12/12, changed to meropenem 12/13 since O2 requirements increased --Follow CBC, CRP, ESR. Procalcitonin normal --MRSA swab-- not detected --pulmonology consulted 12/16/2024: Worsening respiratory status. Now requiring BiPAP treatment. Chest x-ray reviewed. Discussed with Pulmonary. On treatment for pneumonia with meropenem which will be continued. Worsening leukocytosis. Discussed with family. Patient went into paroxysm of ventricular tachycardia that required cardioversion 12/15/2024. Cardiology consulted. Add on beta-dalila. CT head for somnolence negative for any intracranial bleed. For right leg DVT will give therapeutic dose of Lovenox. Hypernatremia worsening started on D5 water. CARINA worsening with creatinine up to 2. Diuresis on hold currently. Overall poor prognosis with declining respiratory status along with paroxysmal ventricular tachycardia. Discussed with the son and decision was made to transition to comfort based care/hospice. Comfort care will be initiated. Will also consult hospice (4) Nausea & vomiting: Code(s): R11.2 - Nausea with vomiting, unspecified Status: Acute Assessment and Plan: QTc now prolonged, 510. Minimal improvement with multiple medications: dronabinol, metoclopramide, zofran --Treating constipation as noted; enema given today 12/15 --Tigan 200mg IM q6 prn --Ativan 0.5mg q6 prn x3 days for nausea/vomiting --Recheck EKG in am and consider additional antiemetics --could try zyprexa if QTc normalizes --Lipase was slightly elevated but only having intermittent mild abdominal pain and pancreas normal on CT CAP 12/12 so overall low suspicion for acute pancreatitis 12/16/2024: Worsening respiratory status. Now requiring BiPAP treatment. Chest x-ray reviewed. Discussed with Pulmonary. On treatment for pneumonia with meropenem which will be continued. Worsening leukocytosis. Discussed with family. Patient went into paroxysm of ventricular tachycardia that required cardioversion 12/15/2024. Cardiology consulted. Add on beta-dalila. CT head for somnolence negative for any intracranial bleed. For right leg DVT will give therapeutic dose of Lovenox. Hypernatremia worsening started on D5 water. CARINA worsening with creatinine up to 2. Diuresis on hold currently. Overall poor prognosis with declining respiratory status along with paroxysmal ventricular tachycardia. Discussed with the son and decision was made to transition to comfort based care/hospice. Comfort care will be initiated. Will also consult hospice (5) Elevated troponin: Code(s): R79.89 - Other specified abnormal findings of blood chemistry Status: Acute Assessment and Plan: Troponin elevated, likely type II demand in the setting of pneumonia/lung mass. --Troponin 0.071--> 0.063 No chest pain. D-dimer is negative --EKG NSR but artifact, repeat EKG AM 12/15 --Last Echo 11/15/24, LVEF 60-65%, no WMA's. 12/16/2024: Worsening respiratory status. Now requiring BiPAP treatment. Ches t x-ray reviewed. Discussed with Pulmonary. On treatment for pneumonia with meropenem which will be continued. Worsening leukocytosis. Discussed with family. Patient went into paroxysm of ventricular tachycardia that required cardioversion 12/15/2024. Cardiology consulted. Add on beta-dalila. CT head for somnolence negative for any intracranial bleed. For right leg DVT will give therapeutic dose of Lovenox. Hypernatremia worsening started on D5 water. CARINA worsening with creatinine up to 2. Diuresis on hold currently. Overall poor prognosis with declining respiratory status along with paroxysmal ventricular tachycardia. Discussed with the son and decision was made to transition to comfort based care/hospice. Comfort care will be initiated. Will also consult hospice (6) Constipation: Code(s): K59.00 - Constipation, unspecified Status: Acute Assessment and Plan: Last BM charted 12/11 --Schedule miralax TID, senna BID --Bisacodyl suppository and enema hs since having nausea 12/16/2024: Worsening respiratory status. Now requiring BiPAP treatment. Chest x-ray reviewed. Discussed with Pulmonary. On treatment for pneumonia with meropenem which will be continued. Worsening leukocytosis. Discussed with family. Patient went into paroxysm of ventricular tachycardia that required cardioversion 12/15/2024. Cardiology consulted. Add on beta-dalila. CT head for somnolence negative for any intracranial bleed. For right leg DVT will give therapeutic dose of Lovenox. Hypernatremia worsening started on D5 water. CARINA worsening with creatinine up to 2. Diuresis on hold currently. Overall poor prognosis with declining respiratory status along with paroxysmal ventricular tachycardia. Discussed with the son and decision was made to transition to comfort based care/hospice. Comfort care will be initiated. Will also consult hospice (7) Dizziness: Code(s): R42 - Dizziness and giddiness Status: Acute Assessment and Plan: 12/07 Unable to complete orthostatic BP due to refusal to stand due to dizziness, but BP farheen from supine to sitting position 12/07 Dronabinol was begun since admission 11/2024 and commonly causes dizziness, so discontinued this. Reported frequent nausea so restarted and no change to nausea -- continue PT/OT 12/16/2024: Worsening respiratory status. Now requiring BiPAP treatment. Chest x-ray reviewed. Discussed with Pulmonary. On treatment for pneumonia with meropenem which will be continued. Worsening leukocytosis. Discussed with family. Patient went into paroxysm of ventricular tachycardia that required cardioversion 12/15/2024. Cardiology consulted. Add on beta-dalila. CT head for somnolence negative for any intracranial bleed. For right leg DVT will give therapeutic dose of Lovenox. Hypernatremia worsening started on D5 water. CARINA worsening with creatinine up to 2. Diuresis on hold currently. Overall poor prognosis with declining respiratory status along with paroxysmal ventricular tachycardia. Discussed with the son and decision was made to transition to co mfort based care/hospice. Comfort care will be initiated. Will also consult hospice (8) Right lower lobe lung mass: Code(s): R91.8 - Other nonspecific abnormal finding of lung field Status: Acute Assessment and Plan: Chest x-ray shows stable right lower lobe masses and interstitial opacities in the peripheral in lower right lung - recently treated for PNA and continue to be treated for it. - patient has know leukocytosis. - patient meet criteria for SIRS/Sepsis - Oncology consulted, will follow up outpatient Considering outpatient biopsy but may decide not to treat if malignancy. Can follow up with Dr. Palomo if she decides to treat it. 12/16/2024: Worsening respiratory status. Now requiring BiPAP treatment. Chest x-ray reviewed. Discussed with Pulmonary. On treatment for pneumonia with meropenem which will be continued. Worsening leukocytosis. Discussed with family. Patient went into paroxysm of ventricular tachycardia that required cardioversion 12/15/2024. Cardiology consulted. Add on beta-dalila. CT head for somnolence negative for any intracranial bleed. For right leg DVT will give therapeutic dose of Lovenox. Hypernatremia worsening started on D5 water. CARINA worsening with creatinine up to 2. Diuresis on hold currently. Overall poor prognosis with declining respiratory status along with paroxysmal ventricular tachycardia. Discussed with the son and decision was made to transition to comfort based care/hospice. Comfort care will be initiated. Will also consult hospice (9) Moderate malnutrition: Code(s): E44.0 - Moderate protein-calorie malnutrition Status: Acute Assessment and Plan: Suspect related to malignancy --Encouraged PO intake, continue Ensure, encouraged to have friends or family bring outside food 12/16/2024: Worsening respiratory status. Now requiring BiPAP treatment. Chest x-ray reviewed. Discussed with Pulmonary. On treatment for pneumonia with meropenem which will be continued. Worsening leukocytosis. Discussed with family. Patient went into paroxysm of ventricular tachycardia that required cardioversion 12/15/2024. Cardiology consulted. Add on beta-dalila. CT head for somnolence negative for any intracranial bleed. For right leg DVT will give therapeutic dose of Lovenox. Hypernatremia worsening started on D5 water. CARINA worsening with creatinine up to 2. Diuresis on hold currently. Overall poor prognosis with declining respiratory status along with paroxysmal ventricular tachycardia. Discussed with the son and decision was made to transition to comfort based care/hospice. Comfort care will be initiated. Will also consult hospice (10) Acute kidney injury: Code(s): N17.9 - Acute kidney failure, unspecified Status: Acute Assessment and Plan: IMPROVING creatinine peaked at 1.73, now down trending, 1.31. Has received fluids since drinking minimally 12/12 urine studies pending, UA no evidence of infection --Concern for acute pyelonephritis on CT but no dysuria and UA was negative. Sent Urine Culture, follow results 12/16/2024: Worsening respiratory status. Now requiring BiPAP treatment. Chest x-ray reviewed. Discussed with Pulmonary. On treatment for pneumonia with meropenem which will be continued. Worsening leukocytosis. Discussed with family. Patient went into paroxysm of ventricular tachycardia that required cardioversion 12/15/2024. Cardiology consulted. Add on beta-dalila. CT head for somnolence negative for any intracranial bleed. For right leg DVT will give therapeutic dose of Lovenox. Hypernatremia worsening started on D5 water. CARINA worsening with creatinine up to 2. Diuresis on hold currently. Overall poor prognosis with declining respiratory status along with paroxysmal ventricular tachycardia. Discussed with the son and decision was made to transition to comfort based care/hospice. Comfort care will be initiated. Will also consult hospice (11) Chronic obstructive pulmonary disease: Code(s): J44.9 - Chronic obstructive pulmonary disease, unspecified Status: Acute Assessment and Plan: No oxygen at home, increasing O2 requirements - continues to cough - continue with current treatment regimen. - oxygen per nasal canula to keep sats above 90% - CPAP hs -Treatment of respiratory failure as noted 12/16/2024: Worsening respiratory status. Now requiring BiPAP treatment. Chest x-ray reviewed. Discussed with Pulmonary. On treatment for pneumonia with meropenem which will be continued. Worsening leukocytosis. Discussed with family. Patient went into paroxysm of ventricular tachycardia that required cardioversion 12/15/2024. Cardiology consulted. Add on beta-dalila. CT head for somnolence negative for any intracranial bleed. For right leg DVT will give therapeutic dose of Lovenox. Hypernatremia worsening started on D5 water. CARINA worsening with creatinine up to 2. Diuresis on hold currently. Overall poor prognosis with declining respiratory status along with paroxysmal ventricular tachycardia. Discussed with the son and decision was made to transition to comfort based care/hospice. Comfort care will be initiated. Will also consult hospice (12) Hyperkalemia: Code(s): E87.5 - Hyperkalemia Status: Acute Assessment and Plan: Replacing as needed 12/12 3.7 12/13 3.3 20meq 12/14 3.2 40meq --Follow BMP, mag, phos 12/16/2024: Worsening respiratory status. Now requiring BiPAP treatment. Chest x-ray reviewed. Discussed with Pulmonary. On treatment for pneumonia with meropenem which will be continued. Worsening leukocytosis. Discussed with family. Patient went into paroxysm of ventricular tachycardia that required cardioversion 12/15/2024. Cardiology consulted. Add on beta-dalila. CT head for somnolence negative for any intracranial bleed. For right leg DVT will give therapeutic dose of Lovenox. Hypernatremia worsening started on D5 water. CARINA worsening with creatinine up to 2. Diuresis on hold currently. Overall poor prognosis with declining respiratory status along with paroxysmal ventricular tachycardia. Discussed with the son and decision was made to transition to comfort based care/hospice. Comfort care will be initiated. Will also consult hospice (13) Hypertension: Code(s): I10 - Essential (primary) hypertension Status: Acute Assessment and Plan: BP controlled (14) Protein calorie malnutrition: Code(s): E46 - Unspecified protein-calorie malnutrition Status: Acute Assessment and Plan: NPO Subjective Date/time seen: 12/16/24 14:57 Interval history: Overnight events noted. Patient more lethargic. Does answer some questions this a.m.. Hypoxic on BiPAP. Discussed with family. Discussed with Pulmonary and Nephrology Review of Systems Review of Systems: ROS unobtainable: Yes unobtainable due to mental status Exam 2 Narrative: GENERAL: Cachectic mildly tachypneic a bit somnolent HENMT: moist mucous membranes EYES: EOM intact b/l RESPIRATORY: Coarse breath sounds bilaterally mildly tachypneic CARDIO: Tachycardic sinus rhythm on telemetry GI: soft, nontender, bowel sounds present NEURO: Somnolent generalized weakness follow some commands Objective Data Vital Signs Vital Signs: Vital Signs - 24 hr 12/15/24 19:28 12/15/24 19:45 12/15/24 19:48 Temperature 97.8 F Pulse Rate 133 H 64 Respiratory Rate 25 H 29 H 22 H Blood Pressure 120/67 94/54 L Pulse Oximetry 88 L 82 L Oxygen Delivery Nasal Cannula BiPAP Oxygen Flow Rate 7 Fraction of Inspired Oxygen 12/15/24 20:00 12/15/24 23:25 12/15/24 23:30 Temperature 97.0 F L Pulse Rate 110 H Respiratory Rate 29 H Blood Pressure 98/47 L Pulse Oximetry 95 96 Oxygen Delivery BiPAP Non-Rebreather Mask Oxygen Flow Rate 6 Fraction of Inspired Oxygen 12/15/24 23:45 12/15/24 23:49 12/16/24 00:13 Temperature Pulse Rate 123 H 114 H Respiratory Rate 29 H Blood Pressure Pulse Oximetry 95 93 Oxygen Delivery BiPAP BiPAP Oxygen Flow Rate Fraction of Inspired Oxygen 50 12/16/24 01:55 12/16/24 03:43 12/16/24 03:50 Temperature Pulse Rate 110 H Respiratory Rate Blood Pressure Pulse Oximetry 91 92 Oxygen Delivery BiPAP Nasal Cannula Oxygen Flow Rate 6 Fraction of Inspired Oxygen 50 12/16/24 04:00 12/16/24 04:00 12/16/24 05:00 Temperature Pulse Rate 107 H Respiratory Rate Blood Pressure Pulse Oximetry 92 93 Oxygen Delivery Nasal Cannula High Flow Nasal Cannula Oxygen Flow Rate 5 10 Fraction of Inspired Oxygen 12/16/24 05:15 12/16/24 05:55 12/16/24 07:58 Temperature 98.5 F Pulse Rate 108 H 109 H 111 H Respiratory Rate 22 H 27 H Blood Pressure 131/62 Pulse Oximetry 91 93 Oxygen Delivery BiPAP Oxygen Flow Rate Fraction of Inspired Oxygen 12/16/24 08:00 12/16/24 08:07 12/16/24 09:27 Temperature 97.6 F Pulse Rate 107 H 111 H 108 H Respiratory Rate 27 H 27 H Blood Pressure 108/38 L Pulse Oximetry 95 96 Oxygen Delivery BiPAP Oxygen Flow Rate Fraction of Inspired Oxygen 12/16/24 10:00 12/16/24 11:22 12/16/24 12:00 Temperature 97.6 F Pulse Rate 107 H 108 H 110 H Respiratory Rate 14 Blood Pressure 115/66 Pulse Oximetry 94 Oxygen Delivery Oxygen Flow Rate Fraction of Inspired Oxygen 12/16/24 12:25 12/16/24 14:00 Temperature Pulse Rate 118 H 105 H Respiratory Rate 24 H Blood Pressure Pulse Oximetry 93 Oxygen Delivery BiPAP Oxygen Flow Rate Fraction of Inspired Oxygen Intake/Output Intake/Output: Intake & Output 12/13/24 12/14/24 12/15/24 12/16/24 23:59 23:59 23:59 23:59 Intake Total 1310 250 300 Output Total 400 300 100 Balance 910 -50 200 Meds/Results Medications: Active Medications Generic Name Dose Route Start Last Admin Trade Name Freq PRN Reason Stop Dose Admin Acetaminophen 650 mg 12/01/24 22:27 12/11/24 08:26 Acetaminophen 325 Mg Tablet PO 650 mg Q6H PRN Administration Mild Pain (1-3) or Fever Atorvastatin Calcium 40 mg 12/02/24 09:00 12/16/24 10:06 Atorvastatin 40 Mg Tablet PO 40 mg DAILY LUCY Administration Benzocaine 1 lozenge 12/13/24 11:47 12/13/24 12:16 Benzocaine/Menthol (*Bkc) 18 Ea Lozenge PO 1 lozenge PRN PRN Administration Sore Throat Bisacodyl 10 mg 12/15/24 16:00 12/16/24 07:50 Bisacodyl 10 Mg Suppository RECTAL Not Given DAILY LUCY Clopidogrel Bisulfate 75 mg 12/02/24 09:00 12/16/24 10:08 Clopidogrel Bisulfate 75 Mg Tablet PO Not Given DAILY LUCY Clotrimazole 10 mg 12/13/24 15:00 12/16/24 12:02 Clotrimazole 10 Mg Troc PO Not Given 5 TIMES DAILY LUCY Diphenhydramine HCl 25 mg 12/13/24 15:36 Diphenhydramine Hcl Inj 50 Mg/Ml Vial IV PUSH Q12H PRN Itching Enoxaparin Sodium 45 mg 12/16/24 12:00 12/16/24 12:03 Enoxaparin 60 Mg/0.6 Ml Syringe SUB-Q 45 mg Q24H LUCY Administration Escitalopram Oxalate 10 mg 12/02/24 21:00 12/15/24 20:54 Escitalopram Oxalate 10 Mg Tablet PO 10 mg HS LUCY Administration Fluticasone/Umeclidinium/Vilanterol 1 puff 12/02/24 08:00 12/16/24 07:57 Fluticasone/Umeclidin/Vilanter 100-62.5-25 Mcg Ellipta INHALATION Not Given DAILYRT LUCY Furosemide 40 mg 12/07/24 17:00 12/11/24 08:27 Furosemide 40 Mg Tablet PO 40 mg BID LUCY Administration Guaifenesin 1,200 mg 12/08/24 21:00 12/16/24 10:07 Guaifenesin 12 Hr 600 Mg Tabcr PO Not Given Q12HR LUCY Meropenem 1 gm/ Sodium 100 mls @ 200 mls/hr 12/15/24 10:00 12/16/24 09:59 Chloride IVPB 200 mls/hr Q12H LUCY Administration Dextrose 1,000 mls @ 75 mls/hr 12/16/24 09:35 12/16/24 09:58 Dextrose 5% 1,000 Ml IV CONT 75 mls/hr .[id number] LUCY Administration Lorazepam 0.5 mg 12/14/24 19:26 Lorazepam Inj (*Crx) 2 Mg/Ml Vial IV PUSH 12/17/24 19:25 Q6H PRN nausea and vomting, 2nd line Melatonin 5 mg 12/02/24 21:00 12/15/24 20:55 Melatonin 5 Mg Tablet PO Not Given QHS [facility] Metoprolol Tartrate 25 mg 12/16/24 21:00 Metoprolol Tartrate 25 Mg Tablet PO Q12HR [facility] Pantoprazole Sodium 20 mg 12/02/24 05:00 12/12/24 08:28 Pantoprazole Sod Sesquihydrate 20 Mg Tab PO 20 mg QAM PRN Administration Indigestion Perflutren Lipid Microsphere 0 ml 12/16/24 10:21 Perflutren Lipid Microspheres 1.5 Ml Vial Diluted To 10 Ml Total Volume IV PUSH 12/19/24 10:21 ONCE PRN adequate visualization Protocol Polyethylene Glycol 17 gm 12/14/24 13:00 12/16/24 13:01 Polyethylene Glycol 3350 17 Gm Powd.Pack PO Not Given TID LUCY Senna 8.6 mg 12/14/24 17:00 12/16/24 12:03 Sennosides 8.6 Mg Tablet PO Not Given BID [facility] Trimethobenzamide HCl 200 mg 12/14/24 19:23 Trimethobenzamide Hcl 200 Mg/2 Ml Vial IM Q6H PRN Nausea And Vomiting Radiology Results: ITS Impressions Chest/Abdomen/Pelvis CT 12/12/24 15:41 IMPRESSION: CHEST: 1. Hypodensity seen in the right lower lobe unchanged from previous examination which is most likely a mass. Pneumonia cannot be excluded. Another smaller density is seen just above the mentioned previously mass which also may be a mass or focal pneumonia. Follow-up to resolution and further evaluation advised. 2. Thickening of the septa in the right upper and lower lobe which may indicate pneumonitis versus edema. Follow-up advised. 3. Right hilar and mediastinal lymphadenopathy. 4. Underlying severe emphysematous changes. 5. Trace of pericardial effusion ABDOMEN/PELVIS: 1. No evidence of appendicitis, diverticulitis or intestinal obstruction. 2. Slightly dilated left renal pelvis with thickening of the wall which may indicate ascending pyelonephritis. Clinical correlation advised. 3. Severe atherosclerotic changes with slight aneurysmal dilatation seen in the distal aorta measuring 2.8 cm. Venous Doppler Study 12/15/24 16:26 IMPRESSION: Thrombus in the distal right superficial femoral vein. Otherwise patent lower pulmonary veins. Chest X-Ray 12/15/24 19:27 IMPRESSION: Right lung opacities may represent asymmetric edema or infection, overlying chronic severe emphysema. Head CT 12/16/24 10:01 IMPRESSION: No acute intracranial findings. Old infarct in the right frontal parietal and occipital areas with encephalomalacia. Labs Labs: Laboratory Results - last 24 hr 12/15/24 12/15/24 12/15/24 19:28 19:52 20:42 WBC RBC Hgb Hct MCV MCH MCHC RDW Plt Count MPV Immature Gran % (Auto) Neut % (Auto) Lymph % (Auto) Kane % (Auto) Eos % (Auto) Baso % (Auto) Lymph # (Auto) Kane # (Auto) Eos # (Auto) Baso # (Auto) Abs Immat Gran (auto) Absolute Neuts (auto) Absolute Nucleated RBC Nucleated RBC % Puncture Site Cancelled Right brachial ABG pH Cancelled 7.381 ABG pCO2 Cancelled 30.8 L ABG pO2 Cancelled 67.2 L ABG PO2/FiO2 Ratio Cancelled 1.34 ABG HCO3 Cancelled 17.9 L ABG O2 Saturation Cancelled 93.4 L ABG O2 Content Cancelled 16.6 ABG Base Excess Cancelled -6.1 A-a Gradient Cancelled 254.7 Oxyhemoglobin Cancelled 90.8 Total Hemoglobin Cancelled 13.0 O2 Delivery Device Cancelled Bipap O2 Liters/Min Cancelled Not Reportable FiO2 Cancelled 50 Expiratory Pressure 8 Inspiratory Pressure 16 Sodium Potassium Chloride Carbon Dioxide Anion Gap BUN Creatinine Estim Creat Clear Calc Estimated GFR Glucose POC Capillary Glucose 115 H Calcium Magnesium NT-Pro-B Natriuret Pep 12/16/24 03:56 WBC 24.8 H RBC 4.11 L Hgb 12.3 Hct 41.0 MCV 99.8 MCH 29.9 MCHC 30.0 L RDW 16.7 H Plt Count 246 MPV 10.3 Immature Gran % (Auto) 4.6 H Neut % (Auto) 82.5 H Lymph % (Auto) 5.2 L Kane % (Auto) 7.7 Eos % (Auto) 0.0 Baso % (Auto) 0.0 L Lymph # (Auto) 1.30 Kane # (Auto) 1.9 H Eos # (Auto) 0.0 Baso # (Auto) 0.0 Abs Immat Gran (auto) 1.13 H Absolute Neuts (auto) 20.4 H Absolute Nucleated RBC 0.040 H Nucleated RBC % 0.2 Puncture Site ABG pH ABG pCO2 ABG pO2 ABG PO2/FiO2 Ratio ABG HCO3 ABG O2 Saturation ABG O2 Content ABG Base Excess A-a Gradient Oxyhemoglobin Total Hemoglobin O2 Delivery Device O2 Liters/Min FiO2 Expiratory Pressure Inspiratory Pressure Sodium 155 H Potassium 4.3 Chloride 121 H Carbon Dioxide 19 L Anion Gap 15 H BUN 51 H D Creatinine 2.09 H Estim Creat Clear Calc 15 Estimated GFR 23 L Glucose 130 H POC Capillary Glucose Calcium 9.4 Magnesium 3.2 H NT-Pro-B Natriuret Pep 25176 H
--- NOTE | 2024-12-16 15:26 | PCPTNOTE ---
PT held today per nursing due to patient having a rapid response called last night and trasnferred to IMU. Patient on continuous BIPAP at this time. PT will continue to follow.
--- NOTE | 2024-12-16 17:47 | PC.NURSE ---
This patient, Dawn Bocanegra, was transferred to [[facility] ] on 12/16/24 at 1748. Personal belongings sent with patient. Report given to [ Audrey]. Appropriate documentation sent with patient.
--- NOTE | 2024-12-16 18:17 | PC.NURSE ---
This patient, Dawn Bocanegra, was received from IMU on 12/16/24 at 1817. Patient/family oriented to unit policies and routines
--- NOTE | 2024-12-16 19:30 | P.HP_ITS ---
H&P: HPI History of Present Illness Date/Time: 12/16/24 19:30 Chief Complaint: Acute respiratory failure Narrative: Per previous notes: Dawn Bocanegra is a 73-year-old woman with chronic respiratory failure on oxygen, COPD, tobacco abuse with smoking up until her November 11 admission, lung cancer in the RLL s/p SBRT completed 10/09/22. Her recent admission was from home, November 11- for postobstructive pneumonia in the right lower lobe. She has panlobular emphysema with 118 pack year history of tobacco abuse. She went to rehab from November 21 through , was readmitted to the hospital side without going home, had weakness, coughing, clear sputum, and an increase in her O2 need. She admitted 12/01 with weakness, was on 2 L/min. CXR 12/04 shows worsening interstitial infiltrates on CXR and O2 need has increased. She has been treated with IV Rocephin and oral azithromycin. Last admission, she was negative in influenza A/B, RSV and SARS-CoV-2, mycoplasma titers were normal, urine antigen for strep pneumonia Legionella were negative. MRSA nasal swab was negative. Extended respiratory pathogen panel was negative. She was loaded up on antibiotics, azithromycin, meropenem and vancomycin, changed to cefepime, Flagyl and doxycycline when she was admitted to the floor. 12/16/2024: Worsening respiratory status. Now requiring BiPAP treatment. Chest x-ray reviewed. Discussed with Pulmonary. On treatment for pneumonia with meropenem which will be continued. Worsening leukocytosis. Discussed with family. Patient went into paroxysm of ventricular tachycardia that required cardioversion 12/15/2024. Cardiology consulted. Add on beta-dalila. CT head for somnolence negative for any intracranial bleed. For right leg DVT will give therapeutic dose of Lovenox. Hypernatremia worsening started on D5 water. CARINA worsening with creatinine up to 2. Diuresis on hold currently. Overall poor prognosis with declining respiratory status along with paroxysmal ventricular tachycardia. Discussed with the son and decision was made to transition to comfort based care/hospice. 12/17/2023 I saw her via telehealth with the assistance of Amol Headley RN. She was on bipap for some time today but is now on 5L by [place]. She is lethargic but did answer no when asked if she is in pain. We are unable to get a pulse ox reading or a BP. Resp rate is 22 and shallow. Her son/POA just wants her comfortable, wants DNR. Review of Systems Review of Systems: ROS unobtainable: Yes unobtainable due to mental status FOR[facility], [facility] Past Medical History Medical History (Updated 12/16/24 @ 19:46 by Winnie Dorsey, ) Mediastinal lymphadenopathy Nonobstructive atherosclerosis of coronary artery Cerebrovascular accident Tobacco abuse Carotid artery disease Peripheral vascular disease Chronic obstructive pulmonary disease Transient ischemic attack Gastroesophageal reflux disease Hypertension Osteoporosis History of radiation therapy right lower lobe 2022 Malignant neoplasm of lower lobe, right bronchus or lung Depression Dyslipidemia Anxiety Surgical History Surgical History (Updated 12/01/24 @ 20:24 by Jacqui Shen PA-C) History of bilateral carotid endarterectomy Status post angioplasty with stent iliac, subclavian, renal arteries History of cholecystectomy History of total hysterectomy with bilateral salpingo-oophorectomy (BSO) Family History Family History Sibling Cancer of kidney Sibling Hypertension Father Hypertension Social History Social History Social History: Surrogate medical decision maker: Yaakov Bocanegra, son. Code status: Full code. Smoking packs per day: 2 Smoking cigarettes per day: 40.0 Years smoked: 40 Smoking pack-years: 80.00 Smoking status: Never smoker Tobacco type: cigarettes Second hand tobacco smoke exposure: No Additional smoking assessment comments: weaning off cigarettes Alcohol intake: never Drinks per week: 5 Substance use: never Substance use type: does not use Do You Feel Safe in your Home?: Yes Lack of Transportation: No Lack of Food: Never True Current Housing: I Have Housing Concerned About Future Housing: No Difficulty Paying Gas/Electric Bills: No Difficulty Paying for Meds: No Currently Unemployed: No Education: High School Diploma/GED Difficulty w/ Childcare or Family Care: No Living arrangements: alone Occupation/Education: retired Spiritual care concerns: No Meds Home Medications and Allergies Home Medications ?Medication ?Instructions ?Recorded ?Confirmed ?Type melatonin 5 mg capsule 5 mg PO QHS 08/29/22 12/02/24 History atorvastatin 40 mg tablet 40 mg PO DAILY 90 days #90 tabs 08/13/24 12/02/24 Rx clopidogrel 75 mg tablet (Plavix) 75 mg PO DAILY #90 tabs 08/13/24 12/02/24 Rx lisinopril 40 mg tablet 40 mg PO QAM 90 days #90 tabs 08/13/24 12/02/24 Rx escitalopram oxalate 10 mg tablet 10 mg PO HS #90 tabs 09/29/24 12/02/24 Rx pantoprazole 20 mg tablet,delayed 20 mg PO QAM PRN Indigestion #90 09/29/24 12/02/24 Rx release tabs carvedilol 12.5 mg tablet (Coreg) 12.5 mg PO Q12HR #60 tabs 11/21/24 12/02/24 Rx fluticasone fur. 100 mcg-umeclid 1 inh inhalation DAILY #60 ea 11/21/24 12/02/24 Rx 62.5 mcg-vilant 25 mcg inhalat.powder (Trelegy Ellipta) furosemide 40 mg tablet 40 mg PO QAM #14 tabs 11/21/24 12/02/24 Rx guaifenesin 600 mg tablet, 600 mg PO Q12H PRN congestion 11/21/24 12/02/24 History extended release 12 hr acetaminophen 500 mg capsule 500 mg PO Q4H PRN pain 12/02/24 12/02/24 History albuterol sulfate 1.25 mg/3 mL 2.5 mg inhalation Q6H 12/02/24 12/02/24 History solution for nebulization dronabinol 2.5 mg capsule 2.5 mg PO BID 12/02/24 12/02/24 History enoxaparin 40 mg/0.4 mL 40 mg subcut DAILY 12/02/24 12/02/24 History subcutaneous syringe ondansetron HCl 4 mg tablet 4 mg PO Q6H PRN nausea and vomiting 12/02/24 12/02/24 History potassium chloride 20 mEq 20 meq PO DAILY 12/02/24 12/02/24 History tablet,extended release(part/cryst) (Klor-Con M) Allergies Allergy/AdvReac Type Severity Reaction Status Date / Time Penicillins Allergy Severe BREATHING Verified 12/04/24 14:03 DIFFICULTY, SWELLING Vital Signs Vital Signs - 24 hr 12/15/24 19:45 12/15/24 19:48 12/15/24 20:00 Temperature 36.6 C Pulse Rate 64 Respiratory Rate 29 H 22 H Blood Pressure 94/54 L Pulse Oximetry 82 L Oxygen Delivery BiPAP BiPAP Oxygen Flow Rate Fraction of Inspired Oxygen 12/15/24 23:25 12/15/24 23:30 12/15/24 23:45 Temperature 36.1 C L Pulse Rate 110 H 123 H Respiratory Rate 29 H 29 H Blood Pressure 98/47 L Pulse Oximetry 95 96 95 Oxygen Delivery Non-Rebreather Mask BiPAP Oxygen Flow Rate 6 Fraction of Inspired Oxygen 12/15/24 23:49 12/16/24 00:13 12/16/24 01:55 Temperature Pulse Rate 114 H 110 H Respiratory Rate Blood Pressure Pulse Oximetry 93 Oxygen Delivery BiPAP Oxygen Flow Rate Fraction of Inspired Oxygen 50 12/16/24 03:43 12/16/24 03:50 12/16/24 04:00 Temperature Pulse Rate Respiratory Rate Blood Pressure Pulse Oximetry 91 92 92 Oxygen Delivery BiPAP Nasal Cannula Nasal Cannula Oxygen Flow Rate 6 5 Fraction of Inspired Oxygen 50 12/16/24 04:00 12/16/24 05:00 12/16/24 05:15 Temperature 36.9 C Pulse Rate 107 H 108 H Respiratory Rate 22 H Blood Pressure 131/62 Pulse Oximetry 93 91 Oxygen Delivery High Flow Nasal Cannula Oxygen Flow Rate 10 Fraction of Inspired Oxygen 12/16/24 05:55 12/16/24 07:58 12/16/24 08:00 Temperature Pulse Rate 109 H 111 H 107 H Respiratory Rate 27 H Blood Pressure Pulse Oximetry 93 Oxygen Delivery BiPAP Oxygen Flow Rate Fraction of Inspired Oxygen 12/16/24 08:07 12/16/24 09:27 12/16/24 10:00 Temperature 36.4 C Pulse Rate 111 H 108 H 107 H Respiratory Rate 27 H 27 H Blood Pressure 108/38 L Pulse Oximetry 95 96 Oxygen Delivery BiPAP Oxygen Flow Rate Fraction of Inspired Oxygen 12/16/24 11:22 12/16/24 12:00 12/16/24 12:25 Temperature 36.4 C Pulse Rate 108 H 110 H 118 H Respiratory Rate 14 24 H Blood Pressure 115/66 Pulse Oximetry 94 93 Oxygen Delivery BiPAP Oxygen Flow Rate Fraction of Inspired Oxygen 12/16/24 14:00 12/16/24 16:15 Temperature Pulse Rate 105 H 104 H Respiratory Rate 21 H Blood Pressure Pulse Oximetry 100 Oxygen Delivery BiPAP Oxygen Flow Rate Fraction of Inspired Oxygen Exam Const: General: lethargic Chest: Chest palpation & inspection: normal inspection of the chest Resp: Other: shallow respirations, mildly tachypneic. Cardio: Other: no peripheral edema Skin: Other: extensive bruising to arms and hands. H&P: Results Labs Labs: Short CBC 12/16/24 Range/Units 03:56 WBC 24.8 H (4.5-10.0) K/mm3 Hgb 12.3 (12.0-15.0) g/dL Hct 41.0 (37.0-47.0) % Plt Count 246 (150-375) k/mm3 BMP 12/16/24 03:56 Sodium 155 H Potassium 4.3 Chloride 121 H Carbon Dioxide 19 L BUN 51 H D Creatinine 2.09 H Glucose 130 H Calcium 9.4 Assessment and Plan Assessment and plan (1) Hospice care: Code(s): Z51.5 - Encounter for palliative care Status: Acute Assessment and Plan: She has acute respiratory failure secondary to her COPD, right lung cancer, post obstructive pneumonia. For control of her respiratory distress we will start a dilaudid drip and make ativan available prn. She qualifies for GIP because of her need for IV medications to control symptoms. (2) PVT (paroxysmal ventricular tachycardia): Code(s): I47.20 - Ventricular tachycardia, unspecified Status: Acute Assessment and Plan: Had to be cardioverted last night. Is now a DNR. (3) Acute kidney injury: Code(s): N17.9 - Acute kidney failure, unspecified Status: Acute (4) Malignant neoplasm of lower lobe, right bronchus or lung: Code(s): C34.31 - Malignant neoplasm of lower lobe, right bronchus or lung Status: Acute (5) Chronic obstructive pulmonary disease: Code(s): J44.9 - Chronic obstructive pulmonary disease, unspecified Status: Acute (6) Acute respiratory failure with hypoxia: Code(s): J96.01 - Acute respiratory failure with hypoxia Status: Acute
--- NOTE | 2024-12-16 20:16 | PM.DS ---
DS: Admitting Diagnosis Discharge Date 12/16/24 Admitting Diagnosis Shortness of breath DS: Discharge Diagnosis Discharge Diagnosis (1) Acute respiratory failure: Code(s): J96.00 - Acute respiratory failure, unspecified whether with hypoxia or hypercapnia Status: Acute (2) Elevated WBC count: Code(s): D72.829 - Elevated white blood cell count, unspecified Status: Acute (3) Hospital-acquired pneumonia: Code(s): J18.9 - Pneumonia, unspecified organism; Y95 - Nosocomial condition Status: Acute (4) Nausea & vomiting: Code(s): R11.2 - Nausea with vomiting, unspecified Status: Acute (5) Elevated troponin: Code(s): R79.89 - Other specified abnormal findings of blood chemistry Status: Acute (6) Constipation: Code(s): K59.00 - Constipation, unspecified Status: Acute (7) Dizziness: Code(s): R42 - Dizziness and giddiness Status: Acute (8) Right lower lobe lung mass: Code(s): R91.8 - Other nonspecific abnormal finding of lung field Status: Acute (9) Moderate malnutrition: Code(s): E44.0 - Moderate protein-calorie malnutrition Status: Acute (10) Acute kidney injury: Code(s): N17.9 - Acute kidney failure, unspecified Status: Acute (11) Chronic obstructive pulmonary disease: Code(s): J44.9 - Chronic obstructive pulmonary disease, unspecified Status: Acute (12) Hyperkalemia: Code(s): E87.5 - Hyperkalemia Status: Acute (13) Hypertension: Code(s): I10 - Essential (primary) hypertension Status: Acute (14) Protein calorie malnutrition: Code(s): E46 - Unspecified protein-calorie malnutrition Status: Acute DS: Summary Hospital Course Hospital Course: Patient presented with acute respiratory failure with hypoxia. See was Initially treated for volume overload with diastolic dysfunction with IV Lasix also for pneumonia with antibiotics it was suspected to have postobstructive pneumonia. See has right lower lobe mass suspicious for recurrence of lung cancer. She remain on broad-spectrum antibiotics for pneumonia. During the course of hospitalization her respiratory status worsened requiring BiPAP. Patient continued to decline through the hospitalization with occurrence of paroxysmal of ventricular tachycardia that required cardioversion on 12/15/2024. Cardiology was consulted. She also developed right leg DVT and worsening hypernatremia and acute kidney injury. With her overall decline goals of care discussion occurred and transition to hospice care was made. She will be transitioned to hospice. Time Spent with Patient Time attestation: Total time spent providing and/or coordinating discharge services: 30 minutes Exam Narrative: GENERAL: Cachectic mildly tachypneic a bit somnolent HENMT: moist mucous membranes EYES: EOM intact b/l RESPIRATORY: Coarse breath sounds bilaterally mildly tachypneic CARDIO: Tachycardic sinus rhythm on telemetry GI: soft, nontender, bowel sounds present NEURO: Somnolent generalized weakness follow some commands DS: Data Data Completed and Pending Labs on day of discharge: Labs from last 24 hours 12/16/24 12/15/24 03:56 19:52 Puncture Site Cancelled ABG pH Cancelled ABG pCO2 Cancelled ABG pO2 Cancelled ABG PO2/FiO2 Ratio Cancelled ABG HCO3 Cancelled ABG O2 Saturation Cancelled ABG O2 Content Cancelled ABG Base Excess Cancelled A-a Gradient Cancelled Oxyhemoglobin Cancelled Total Hemoglobin Cancelled O2 Delivery Device Cancelled O2 Liters/Min Cancelled FiO2 Cancelled NT-Pro-B Natriuret Pep 47316 H Preliminary micro results at discharge 12/12/24 23:09 Urine Culture - Preliminary Urine Clean Catch 12/14/24 10:41 Blood Culture - Preliminary Blood 12/14/24 10:41 Blood Culture - Preliminary Blood Discharge Plan Discharge Attending physician on discharge: Edgar Cam Consulting providers: Kamilla Finney; Radha Ogden; Quique Palomo; Sj Vang; Matilda Allred Discharging Clinician: Edgar Cam Anticipated Discharge Date/Time: 12/16/24 08:21 Patient Disposition: Hospice - Medical Facility Patient Language: Belarusian Stand Alone Forms: General Discharge Information Discharge Medications: No Action melatonin 5 mg capsule 5 mg PO QHS acetaminophen 500 mg capsule 500 mg PO Q4H PRN (Reason: pain) albuterol sulfate 1.25 mg/3 mL solution for nebulization 2.5 mg inhalation Q6H dronabinol 2.5 mg capsule 2.5 mg PO BID Rx Instructions: administer before lunch and evening meal/dinner enoxaparin 40 mg/0.4 mL syringe 40 mg subcut DAILY ondansetron HCl 4 mg tablet 4 mg PO Q6H PRN (Reason: nausea and vomiting) potassium chloride [Klor-Con M20] 20 mEq tablet,ER particles/crystals 20 meq PO DAILY furosemide 40 mg Tablet 40 mg PO QAM Qty: 14 0RF Patient Comments: x14 days carvedilol [Coreg] 12.5 mg Tablet 12.5 mg PO Q12HR Qty: 60 0RF Trelegy Ellipta 100-62.5-25 mcg blister with device 1 inh inhalation DAILY Qty: 60 0RF lisinopril 40 mg tablet 40 mg PO QAM 90 Days Qty: 90 1RF clopidogrel [Plavix] 75 mg tablet 75 mg PO DAILY Qty: 90 1RF atorvastatin 40 mg tablet 40 mg PO DAILY 90 Days Qty: 90 1RF pantoprazole 20 mg tablet,delayed release (DR/EC) 20 mg PO QAM PRN (Reason: Indigestion) Qty: 90 1RF escitalopram oxalate 10 mg tablet 10 mg PO HS Qty: 90 1RF guaifenesin 600 mg tablet extended release 12hr 600 mg PO Q12H PRN (Reason: congestion) Rx Instructions: x7 days Date of admission: 12/02/24 09:46 Primary Care Provider: Jana Aguiar Admitting Provider: Edgar Cam Attending physician on admission: Xiomara Chang Condition: Stable
== END 2024-12-16 22:05 | disposition hospice, inpatient (51) | DRG 682 ==
LOC: ANHED 20:04 → ANH3MEDSUR 21:10 → ANHIMU 12-04 06:23 → ANH3MEDSUR 12-06 11:49 → ANHIMU 12-15 23:35 → ANH3MED 12-16 18:04
PROVIDERS: Internal Medicine; Internal Medicine Pulmonary Disease; Nurse Practitioner Acute Care; Nurse Practitioner Adult Health; Nurse Practitioner Family; Nurse Practitioner Gerontology; Physician Assistant; Registered Nurse; Student in an Organized Health Care Education/Training Program; Admitting Provider Internal Medicine; Emergency Provider Physician Assistant; PCP Physician Assistant Medical; Visit Provider Internal Medicine
DX: N17.9 Acute kidney failure, unspecified (principal); J18.9 Pneumonia, unspecified organism; J96.21 Acute and chronic respiratory failure with hypoxia; I69.354 Hemiplegia and hemiparesis following cerebral infarction affecting left non-dominant side; J96.11 Chronic respiratory failure with hypoxia; E44.0 Moderate protein-calorie malnutrition; Z68.1 Body mass index [BMI] 19.9 or less, adult; C34.31 Malignant neoplasm of lower lobe, right bronchus or lung; I47.20 Ventricular tachycardia, unspecified; I82.411 Acute embolism and thrombosis of right femoral vein; E87.0 Hyperosmolality and hypernatremia; E78.5 Hyperlipidemia, unspecified; E87.5 Hyperkalemia; F17.210 Nicotine dependence, cigarettes, uncomplicated; F32.A Depression, unspecified; F41.9 Anxiety disorder, unspecified; I95.9 Hypotension, unspecified; J43.1 Panlobular emphysema; I10 Essential (primary) hypertension; I25.10 Atherosclerotic heart disease of native coronary artery without angina pectoris; I73.9 Peripheral vascular disease, unspecified; K21.9 Gastro-esophageal reflux disease without esophagitis; M81.0 Age-related osteoporosis without current pathological fracture; R59.0 Localized enlarged lymph nodes; R05.3 Chronic cough; Z99.81 Dependence on supplemental oxygen; Z91.199 Patient's noncompliance with other medical treatment and regimen due to unspecified reason; Z92.3 Personal history of irradiation; Z95.5 Presence of coronary angioplasty implant and graft; Z20.822 Contact with and (suspected) exposure to COVID-19; Z90.49 Acquired absence of other specified parts of digestive tract; Z79.02 Long term (current) use of antithrombotics/antiplatelets; Z88.0 Allergy status to penicillin; Z66 Do not resuscitate
CPT/HCPCS: 36415; 36600; 70450; 71045; 71046; 71250; 74176; 80048; 80053; 80076; 81003; 82550; 82570; 82728; 82805; 82948; 83540; 83550; 83605; 83690; 83735; 83880; 84100; 84132; 84145; 84300; 84484; 85018; 85025; 85027; 85380; 85610; 85652; 85730; 86140; 87040; 87086; 87637; 87641; 87651; 93005; 93306; 93970; 94002; 94003; 94640; 94667; 94668; 94669; 94762; 96365; 96372; 96375; 97110; 97162; 97165; 97530; 99285; A9270; G0378; J0456; J0696; J1650; J1938; J1939; J2185; J2765; J2919; J3373; J3480; J7030; J7040; J7050; J7070; P9045

== ENCOUNTER 2024-12-16 19:15 | HOS | payer OTHER, MEDICARE, SELFPAY ==
--- NOTE | 2024-12-16 19:31 | HP_ITS ---
This report was moved to the correct visit on 12/19/2024. The original report was signed by Winnie Dorsey DO on 12/16/24 1950. H&P: HPI History of Present Illness Date/Time: 12/16/24 19:30 Chief Complaint: Acute respiratory failure Narrative: Per previous notes: Dawn Bocanegra is a 73-year-old woman with chronic respiratory failure on oxygen, COPD, tobacco abuse with smoking up until her November 11 admission, lung cancer in the RLL s/p SBRT completed 10/09/22. Her recent admission was from home, November 11- for postobstructive pneumonia in the right lower lobe. She has panlobular emphysema with 118 pack year history of tobacco abuse. She went to rehab from November 21 through , was readmitted to the hospital side without going home, had weakness, coughing, clear sputum, and an increase in her O2 need. She admitted 12/01 with weakness, was on 2 L/min. CXR 12/04 shows worsening interstitial infiltrates on CXR and O2 need has increased. She has been treated with IV Rocephin and oral azithromycin. Last admission, she was negative in influenza A/B, RSV and SARS-CoV-2, mycoplasma titers were normal, urine antigen for strep pneumonia Legionella were negative. MRSA nasal swab was negative. Extended respiratory pathogen panel was negative. She was loaded up on antibiotics, azithromycin, meropenem and vancomycin, changed to cefepime, Flagyl and doxycycline when she was admitted to the floor. 12/16/2024: Worsening respiratory status. Now requiring BiPAP treatment. Chest x-ray reviewed. Discussed with Pulmonary. On treatment for pneumonia with meropenem which will be continued. Worsening leukocytosis. Discussed with family. Patient went into paroxysm of ventricular tachycardia that required cardioversion 12/15/2024. Cardiology consulted. Add on beta-dalila. CT head for somnolence negative for any intracranial bleed. For right leg DVT will give therapeutic dose of Lovenox. Hypernatremia worsening started on D5 water. CARINA worsening with creatinine up to 2. Diuresis on hold currently. Overall poor prognosis with declining respiratory status along with paroxysmal ventricular tachycardia. Discussed with the son and decision was made to transition to comfort based care/hospice. 12/17/2023 I saw her via telehealth with the assistance of Amol Headley RN. She was on bipap for some time today but is now on 5L by [place]. She is lethargic but did answer no when asked if she is in pain. We are unable to get a pulse ox reading or a BP. Resp rate is 22 and shallow. Her son/POA just wants her comfortable, wants DNR. Review of Systems Review of Systems: ROS unobtainable: Yes unobtainable due to mental status PMFSH Past Medical History Medical History (Updated 12/16/24 @ 19:46 by Winnie Dorsey, ) Mediastinal lymphadenopathy Nonobstructive atherosclerosis of coronary artery Cerebrovascular accident Tobacco abuse Carotid artery disease Peripheral vascular disease Chronic obstructive pulmonary disease Transient ischemic attack Gastroesophageal reflux disease Hypertension Osteoporosis History of radiation therapy right lower lobe 2022 Malignant neoplasm of lower lobe, right bronchus or lung Depression Dyslipidemia Anxiety Surgical History Surgical History (Updated 12/01/24 @ 20:24 by Jacqui Shen PA-C) History of bilateral carotid endarterectomy Status post angioplasty with stent iliac, subclavian, renal arteriesHistory of cholecystectomy History of total hysterectomy with bilateral salpingo-oophorectomy (BSO) Family History Family History Sibling Cancer of kidneySibling HypertensionFather Hypertension Social History Social History Social History: Surrogate medical decision maker: Yaakov Bocanegra, son. Code status: Full code. Smoking packs per day: 2 Smoking cigarettes per day: 40.0 Years smoked: 40 Smoking pack-years: 80.00 Smoking status: Never smoker Tobacco type: cigarettes Second hand tobacco smoke exposure: No Additional smoking assessment comments: weaning off cigarettes Alcohol intake: never Drinks per week: 5 Substance use: never Substance use type: does not use Do You Feel Safe in your Home?: Yes Lack of Transportation: No Lack of Food: Never True Current Housing: I Have Housing Concerned About Future Housing: No Difficulty Paying Gas/Electric Bills: No Difficulty Paying for Meds: No Currently Unemployed: No Education: High School Diploma/GED Difficulty w/ Childcare or Family Care: No Living arrangements: alone Occupation/Education: retired Spiritual care concerns: No Meds Home Medications and Allergies Home Medications ?Medication ?Instructions ?Recorded ?Confirmed ?Type melatonin 5 mg capsule 5 mg PO QHS 08/29/22 12/02/24 History atorvastatin 40 mg tablet 40 mg PO DAILY 90 days #90 tabs 08/13/24 12/02/24 Rx clopidogrel 75 mg tablet (Plavix) 75 mg PO DAILY #90 tabs 08/13/24 12/02/24 Rx lisinopril 40 mg tablet 40 mg PO QAM 90 days #90 tabs 08/13/24 12/02/24 Rx escitalopram oxalate 10 mg tablet 10 mg PO HS #90 tabs 09/29/24 12/02/24 Rx pantoprazole 20 mg tablet,delayed 20 mg PO QAM PRN Indigestion #90 09/29/24 12/02/24 Rx release tabs carvedilol 12.5 mg tablet (Coreg) 12.5 mg PO Q12HR #60 tabs 11/21/24 12/02/24 Rx fluticasone fur. 100 mcg-umeclid 1 inh inhalation DAILY #60 ea 11/21/24 12/02/24 Rx 62.5 mcg-vilant 25 mcg inhalat.powder (Trelegy Ellipta) furosemide 40 mg tablet 40 mg PO QAM #14 tabs 11/21/24 12/02/24 Rx guaifenesin 600 mg tablet, 600 mg PO Q12H PRN congestion 11/21/24 12/02/24 History extended release 12 hr acetaminophen 500 mg capsule 500 mg PO Q4H PRN pain 12/02/24 12/02/24 History albuterol sulfate 1.25 mg/3 mL 2.5 mg inhalation Q6H 12/02/24 12/02/24 History solution for nebulization dronabinol 2.5 mg capsule 2.5 mg PO BID 12/02/24 12/02/24 History enoxaparin 40 mg/0.4 mL 40 mg subcut DAILY 12/02/24 12/02/24 History subcutaneous syringe ondansetron HCl 4 mg tablet 4 mg PO Q6H PRN nausea and vomiting 12/02/24 12/02/24 History potassium chloride 20 mEq 20 meq PO DAILY 12/02/24 12/02/24 History tablet,extended release(part/cryst) (Klor-Con M) Allergies Allergy/AdvReac Type Severity Reaction Status Date / Time Penicillins Allergy Severe BREATHING Verified 12/04/24 14:03 DIFFICULTY, SWELLING Vital Signs Vital Signs - 24 hr 12/15/2518:45 12/15/2518:48 12/16/2519:00 Temperature 36.6 C Pulse Rate 64 Respiratory Rate 29 H 22 H Blood Pressure 94/54 L Pulse Oximetry 82 L Oxygen Delivery BiPAP BiPAP Oxygen Flow Rate Fraction of Inspired Oxygen 12/15/2522:25 12/15/2522:30 12/15/2522:45 Temperature 36.1 C L Pulse Rate 110 H 123 H Respiratory Rate 29 H 29 H Blood Pressure 98/47 L Pulse Oximetry 95 96 95 Oxygen Delivery Non-Rebreather Mask BiPAP Oxygen Flow Rate 6 Fraction of Inspired Oxygen 12/15/2522:49 12/16/2499:13 12/16/2500:55 Temperature Pulse Rate 114 H 110 H Respiratory Rate Blood Pressure Pulse Oximetry 93 Oxygen Delivery BiPAP Oxygen Flow Rate Fraction of Inspired Oxygen 50 12/16/2502:43 12/16/2502:50 12/17/2503:00 Temperature Pulse Rate Respiratory Rate Blood Pressure Pulse Oximetry 91 92 92 Oxygen Delivery BiPAP Nasal Cannula Nasal Cannula Oxygen Flow Rate 6 5 Fraction of Inspired Oxygen 50 12/17/2503:00 12/16/2504:00 12/16/2504:15 Temperature 36.9 C Pulse Rate 107 H 108 H Respiratory Rate 22 H Blood Pressure 131/62 Pulse Oximetry 93 91 Oxygen Delivery High Flow Nasal Cannula Oxygen Flow Rate 10 Fraction of Inspired Oxygen 12/16/2504:55 12/16/2506:58 12/17/2507:00 Temperature Pulse Rate 109 H 111 H 107 H Respiratory Rate 27 H Blood Pressure Pulse Oximetry 93 Oxygen Delivery BiPAP Oxygen Flow Rate Fraction of Inspired Oxygen 12/17/2507:07 12/16/2508:27 12/16/2509:00 Temperature 36.4 C Pulse Rate 111 H 108 H 107 H Respiratory Rate 27 H 27 H Blood Pressure 108/38 L Pulse Oximetry 95 96 Oxygen Delivery BiPAP Oxygen Flow Rate Fraction of Inspired Oxygen 12/16/2510:22 12/17/2511:00 12/17/2511:25 Temperature 36.4 C Pulse Rate 108 H 110 H 118 H Respiratory Rate 14 24 H Blood Pressure 115/66 Pulse Oximetry 94 93 Oxygen Delivery BiPAP Oxygen Flow Rate Fraction of Inspired Oxygen 12/16/2513:00 12/17/2515:15 Temperature Pulse Rate 105 H 104 H Respiratory Rate 21 H Blood Pressure Pulse Oximetry 100 Oxygen Delivery BiPAP Oxygen Flow Rate Fraction of Inspired Oxygen Exam Const: General: lethargic Chest: Chest palpation & inspection: normal inspection of the chest Resp: Other: shallow respirations, mildly tachypneic. Cardio: Other: no peripheral edema Skin: Other: extensive bruising to arms and hands. H&P: Results Labs Labs: Short CBC 12/16/24 Range/Units 03:56 WBC 24.8 H (4.5-10.0) K/mm3 Hgb 12.3 (12.0-15.0) g/dL Hct 41.0 (37.0-47.0) % Plt Count 246 (150-375) k/mm3 BMP 12/16/24 03:56 Sodium 155 H Potassium 4.3 Chloride 121 H Carbon Dioxide 19 L BUN 51 H D Creatinine 2.09 H Glucose 130 H Calcium 9.4 Assessment and Plan Assessment and plan (1) Hospice care: Code(s): Z51.5 - Encounter for palliative care Status: Acute Assessment and Plan: She has acute respiratory failure secondary to her COPD, right lung cancer, post obstructive pneumonia. For control of her respiratory distress we will start a dilaudid drip and make ativan available prn. She qualifies for GIP because of her need for IV medications to control symptoms. (2) PVT (paroxysmal ventricular tachycardia): Code(s): I47.20 - Ventricular tachycardia, unspecified Status: Acute Assessment and Plan: Had to be cardioverted last night. Is now a DNR. (3) Acute kidney injury: Code(s): N17.9 - Acute kidney failure, unspecified Status: Acute (4) Malignant neoplasm of lower lobe, right bronchus or lung: Code(s): C34.31 - Malignant neoplasm of lower lobe, right bronchus or lung Status: Acute (5) Chronic obstructive pulmonary disease: Code(s): J44.9 - Chronic obstructive pulmonary disease, unspecified Status: Acute (6) Acute respiratory failure with hypoxia: Code(s): J96.01 - Acute respiratory failure with hypoxia Status: Acute Please be advised this is a medical document. It is intended for [id number] communication. It is written in medical language and may contain unfamiliar abbreviations or verbiage. Medical documents are intended to carry relevant information, facts as evident, and the clinical opinion of the practitioner at the time of the encounter. This report may have been done utilizing a voice recognition system. Attempts have been made to correct errors. However, there may be uncorrected grammatical, spelling, and recognition errors present. The file time of this note does not necessarily represent the time the patient was seen. Report Initialized date/time: Winnie Dorsey DO 12/16/241930 Electronically signed by: Winnie Dorsey DO 12/16/24 1950
--- OUTSIDE RECORDS SUMMARY | 2024-12-16 22:51 | XMS_ITS | Clinical Summary ---
Author Organization [facility] Address [address] [place] [address] Care Team Providers Care Veterinarian Epidemiologist Name Role Phone Babita Reyes PA-C Primary Care Provider [phone] Allergies Active Allergy Reactions Criticality Noted Date [...] Date COPD exacerbation ([facility]) 09/09/2024 Shock ([facility]) 09/09/2024 Hypertensive emergency 09/04/2024 Status post biopsy of skin 01/03/2019 Acute CVA (cerebrovascular accident) ([facility]) 12/31/2018 Skin lesion 11/13/2018 Anxiety 12/17/2014 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/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 GERD (gastroesophageal reflux disease) 5 Nicotine dependence 08/06/2014 Peripheral vascular disease 10/21/2012 Hypercholesterolemia 05/15/2012 Resolved Problems Problem Noted Date Diagnosed Date Resolved Date Encounter for preventive health examination 12/07/2011 02/13/2020 Encounters Date Type Department Care Team Description 11/20/2024 Telephone [facility] Management [address] [place] [address] Yina Bhatia, pole peeling machine operator (Swing bed referral to [facility] from Josh ) 09/25/2024 12:21 PM CDT - 09/25/2024 11:59 PM CDT Hospital Encounter [facility] [address] [place] [address] Babita Reyes PA-C Discharge Disposition: Home or Self Care (Routine Discharge) 09/25/2024 10:30 AM CDT Home Care Visit [facility] Care [address] [place], [place] [id number] Roxy Ndiaye, PT PT OASIS DISCHARGE 09/25/2024 Travel 09/22/2024 12:00 PM CDT Home Care Visit [facility] Care [address] [address] Shreya Lerma, HEAT TREATER HEAD HEAT TREATER HEAD HOME VISIT 09/22/2024 11:00 AM CDT Home Care Visit [facility] Care [address] [address] Olga Mcgee RN SN DISCIPLINE DISCHARGE 09/22/2024 Home Care Visit [facility] Care [address] [address] Olga Mcgee RN [facility] 09/18/2024 1:15 PM CDT Home Care Visit [facility] Care [address] [address] Shreya Lerma, HEAT TREATER HEAD HEAT TREATER HEAD HOME VISIT from Last 3 Months Immunizations Immunization Administration Dates Next Due Fluad influenza vaccine, Stephen drivalent (aIIV4), Inactivated, adjuvanted, preservative free, 0.5 mL,IM use 03/16/2018 Fluzone High Dose - >Age 65 (Prefilled Syringe) 03/24/2019,02/17/2017 Influenza (Generic) 04/06/2014,03/19/2012 Influenza Adult (Generic) 03/23/2015,01/31/2013 Pneumococcal (Pneumovax 23) 02/17/2017 Pneumococcal (Prevnar 13) 05/23/2015 Zoster (Zostavax) 55893 Unt/0.65Ml 01/31/2013 Family History Medical History Relation [...] from your doctor or pharmacy? Sometimes 09/09/2024 [facility] Utilities Answer Date Recorded In the past 12 months has [employer], gas, oil, or water [employer] threatened to shut off services in your [...] often do you attend chur ch or presybeterian services? Never 09/09/2024 Do you belong to any clubs o r organizations such as restorationist groups, unions, fraternal or athletic groups, or [...] Recorded Patient Health Questionnaire-2 Score 0 12/15/2022 [facility] Answer Date [...] any time in the past 12 m [facility], were you homeless or living in a senior living (including now)? No 09/09/2024 Comments No Sex [...] C 12/12/1967 DTaP, Tdap and Td Vaccines ( 1 - Tdap) 1968 Lung Cancer Screening 12/12/1999 Zoster Vaccines (2 of 3) 03/28/2013 01/31/2013 Annual Medicare Wellness Visit 2014 ASCVD LDL 01/02/2020 01/01/2019, 12/18/2014, 08/19/2013 COVID-19 Vaccine ( - 2023-2 5 season) 2024 RSV Immunization or 60+ Years (1 - 1-dose 75+ series) 2024 Pneumococcal Vaccine: 50+ Years Completed 02/17/2017, 05/23/2015 Dexa Scan (General) Completed 09/06/2021, 09/06/2021 Meningococcal B Vaccine Aged Out No l onger eligible based on patient's age to complete this topic Meningococcal Vaccine Aged Out No pricilla narda eligible based on patient's age to complete this topic RSV Immunizations Under 20 Months Aged Out No longer eligible b ased on patient's age to complete this topic Goals Goal Patient Goal Type Associated Problems Recent Progress Patient-Stated? 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 Procedure Name Priority Date/Time Associated Diagnosis Comments MG SCREENING W DESTINEY MARLENE DIGI Routine 09/25/2024 2:05 PM CDT Visit for screening mammogram BONE DENSITY/DEXA Routine [...] 3:42 PM Narrative 09/25/2024 3:51 PM CDT [facility] [address] [place] [address] EXAMINATION: Digital bilateral screening mammogram with 3-D [...] Interpreted By: Dennis Ortiz, 09/06/2021 10:15 AM Nilda ANN DEXA Final Result * LIPID PANEL (01/01/2019 6:15 AM CDT) [facility] Signature CHOLESTEROL 166 <200 MG/DL 01/01/2019 7:42 AM CDT [facility] TRIGLYCERIDES 129 <150 MG/DL 01/01/2019 7:42 AM CDT [facility] HDL 44 >40.0 MG/DL 01/01/2019 7:42 AM CDT [facility] LDL (CALCULATED) 96 <100 MG/DL 01/02/20 19 7:42 AM CDT [facility] NON HDL CHOLESTEROL 122 <130 MG/DL 01/01 7:42 AM CDT [facility] CHOL/HDL RATIO 3.8 0.0 - 4.5 01/01/2019 7:42 AM CDT [facility] VLDL CALCULATION 26 5 - 55 MG/DL 01/01/2019 7:42 AM CDT [facility] LIPID INTERPRETATION 01/01/2019 7:42 AM CDT [facility] Comment: NIH CONCENSUS REPORT RECOMMENDATIONS: ADULT CHILD LOW RISK: CHOLESTEROL <200 <170 TRIGLYCERIDE <150 --- HDL >=60 --- LDL <100 <110 BORDERLINE: CHOLESTEROL 200-239 170-199 TRIGLYCERIDE 150-199 --- HDL 40-59 --- LDL 100-159 110-129 HIGH RISK: CHOLESTEROL >=240 >=200 TRIGLYCERIDE >=200 --- HDL <40 --- LDL >=160 >=130 01/01/2019 6:15 AM CDT Dayna Gold MD LABORATORY Final Result Performing Organization Address City/State/[facility] Co de Phone Number [facility] [address] [phone], from Last 3 Months or Most Recently Relevant to Health Maintenance Insurance MEDICARE [facility] Advance Directives * Full Code (Latest Code [...] 11:22 PM 01/01/2019 8:48 PM Care Teams Veterinarian Epidemiologist Relationship Specialty Start Date End Date Babita Reyes PA-C [address] [place], [place] [address] [place] [address] PCP - General PHYSICIAN MANAGER VAN 08/26/22
--- OUTSIDE RECORDS SUMMARY | 2024-12-16 22:51 | XMS_ITS | Clinical Summary ---
Author Organization [facility] Address [address] [place] [address] Phone Care Team Providers Care Director International Name Role Phone Unavailable Primary Care Provider [...] 50 mg Oral tabletIndications:C oronary atherosclerosis of [place] coronary artery,Hyperlipidem ia,Hypertension Take 1 Tab by [...] migh t be different from the original. Envelope Folding Machine Operator - Dr Christian Ascencio Problem Noted Date Diagnosed Date Coronary atherosclerosis of [place] coronary martin ry 11/25/2010 Overview (08/16/2012): 1989 [...] LDL 140 triglyceride 121, normal AST/ALT 07/13 [id number] HDL 43 LDL 100 triglyceride 115, normal [...] Hematology - Josh [address] [place] [address] Guided Biopsy (Spoke with patient to provide CT guided biopsy info) 10/28/2024 Orders Only [facility] Oncology and Hematology - Josh [address] [place] [address] Quique Palomo MD 10/24/2024 12:00 PM CDT Office Visit [facility] Oncology and Hematology - Josh [address] [place] [address] Quique Palomo MD Mass of right lung (Primary Dx); Chronic obstructive pulmonary disease, unspecified COPD type (CMS/HCC) 10/22/2024 External Device Data STL ABSTRACTION Provider, Abstract 10/22/2024 Orders Only [facility] Oncology and Hematology - Josh [address] [place] [address] Quique Palomo MD 10/21/2024 External Device Data STL ABSTRACTION Provider, Abstract 10/14/2024 Orders Only [facility] Oncology and Hematology - Josh [address] [place] [address] Quique Palomo MD from Last 3 Months Family History Relation Name Status Comments Father Alive MS at age 45 Sister Alive MS at age 39 Social History Tobacco Use [...] on file Legal 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
--- OUTSIDE RECORDS SUMMARY | 2024-12-16 22:51 | XMS_ITS | Continuity of Care Document ---
Author Organization [facility] Address [address] [place] [address] [address] [place] [address] Phone Care Team Providers Care Liquor Blender Name Role Phone Michelle Ojeda Unavailable Unavailable Advance Directives Directive Yes / No Effective Date File Name No Information Encounters Encounter Description Practice Location Reason(s) For Visit Diagnoses Date Provider Providers Copied on Encounter [facility], [address], [place], [place], [id number], [place] tel:[phone] [facility] No Information [address]. [address] , [address], [place], [address], [place]. tel:[phone] Family History Family Member Type Diagnosis Age At Onset No Information Payers Payer name Insurance type Covered libertarian ID Authoriza tion(s) [employer] SOI CI [id number] Social History Type Description Quantity Date Captured [...]
--- OUTSIDE RECORDS SUMMARY | 2024-12-16 22:51 | XMS_ITS | Encounter Summary ---
Author Organization [facility] Address [address] [place] [address] Care Team Providers Care Aerial Photograph Interpreter Name Role Phone Rosales Wolfe MD Primary Care Provider [phone] Jana Aguiar PA-C Primary Care Provider [phone] Encounter Details Date Type Department Care Team (Late st Contact Info) Description 01/02/2019 Hospital Follow-up Call [facility] Telemetry Unit B [address] [facility] [place] [address] Mally De La Torre Social History Tobacco [...] documented as of this encounter Care Teams Aerial Photograph Interpreter Relationship Specialty Start Date End Date Rosales Wolfe MD [address] [place] [address] PCP - General INTERNAL MEDICINE 11/12/18 08/25/22 Jana Aguiar PA-C [address] [place] [address] PCP - General PHYSICIAN PROVIDER RELATIONS REPRESENTATIVE 08/26/22 documented as of this encounter
[2024-12-17 00:06] VITALS: O2SAT 92
[2024-12-17] MEDS: HYDROmorphone HCL/PF (*CRX) 50 MG in SODIUM CHLORIDE 0.9% IV 95 ML IV CONT (03:24)
[2024-12-17] MEDS: HYDROmorphone HCL INJ (*CRX) 2 MG/ML VIAL 0.5 MG IV PUSH (07:04)
[2024-12-17 14:00] VITALS: BP 92/47; PULSE 63; RESP 14; TEMP 35.7; O2SAT 90
[2024-12-17 20:00] VITALS: O2SAT 92
--- OUTSIDE RECORDS SUMMARY | 2024-12-19 10:59 | XMS_ITS | Encounter Summary ---
Author Organization [facility] Address [address] [place] [address] Care Team Providers Care Yeast Distiller Name Role Phone Rosales Wolfe MD Primary Care Provider [phone] Jana Aguiar PA-C Primary Care Provider [phone] Encounter Details Date Type Department Care Team (Late st Contact Info) Description 01/02/2019 Hospital Follow-up Call [facility] Telemetry Unit [address] [facility] [address] [address] Mally De La Torre Social History Tobacco [...] documented as of this encounter Care Teams Yeast Distiller Relationship Specialty Start Date End Date Rosales Wolfe MD [address] [place] [address] PCP - General INTERNAL MEDICINE 11/12/18 08/25/22 Jana Aguiar PA-C [address] [place] [address] PCP - General PHYSICIAN TICKET MAKER 08/26/22 documented as of this encounter
--- OUTSIDE RECORDS SUMMARY | 2024-12-19 10:59 | XMS_ITS | Continuity of Care Document ---
Author Organization [facility] Address [address] [place] [address] [address] [place] [address] Phone Care Team Providers Care Security Door Installer Name Role Phone Michelle Ojeda Unavailable Unavailable Advance Directives Directive Yes / No Effective Date File Name No Information Encounters Encounter Description Practice Location Reason(s) For Visit Diagnoses Date Provider Providers Copied on Encounter [facility], [address], [place], [place], [id number], [place] tel:[phone] [facility] No Information [address]. [address] , [address], [place], [address], [place]. tel:[phone] Family History Family Member Type Diagnosis Age At Onset No Information Payers Payer name Insurance type Covered libertarian ID Authoriza tion(s) [employer] SOI CI [id number] Social History Type Description Quantity Date Captured [...]
--- OUTSIDE RECORDS SUMMARY | 2024-12-19 10:59 | XMS_ITS | Clinical Summary ---
Author Organization [facility] Address [address] [place] [address] Phone Care Team Providers Care Skilled Helper Name Role Phone Unavailable Primary Care Provider [...] 50 mg Oral tabletIndications:C oronary atherosclerosis of [place] coronary artery,Hyperlipidem ia,Hypertension Take 1 Tab by [...] migh t be different from the original. Appointment Specialist - Dr Christian Ascencio Problem Noted Date Diagnosed Date Coronary atherosclerosis of [place] coronary martin ry 11/25/2010 Overview (08/16/2012): 1989 [...] LDL 140 triglyceride 121, normal AST/ALT 07/13 [id number] HDL 43 LDL 100 triglyceride 115, normal AST/ALT 04/05 cholesterol 213 HDL 38 LDL 150 triglyceride 125 COPD (chronic obstructive pulmonary disease) Overview (04/05/2011): 03/[address]: severe rosa emphysema, RLL honeycombing, celiac/SMA /renal artery atherosclerosis, no PE/aortic disease, left hydronephrosis,... Encounters Date Type Department Care Team Description 12/16/2024 External Device Data STL ABSTRACTION Provider, Abstract 11/04/2024 Telephone [facility] Oncology and Hematology - Josh [address] [place] [address] Guided Biopsy (Spoke with patient to provide CT guided biopsy info) 10/28/2024 Orders Only [facility] Oncology and Hematology [address] [place] [address] Quique Palomo MD 10/24/2024 12:00 PM CDT Office Visit [facility] Oncology and Hematology - [address] [place] [address] Quique Palomo MD Mass of right lung (Primary Dx); Chronic obstructive pulmonary disease, unspecified COPD type (CMS/HCC) 10/22/2024 External Device Data STL ABSTRACTION Provider, Abstract 10/22/2024 Orders Only [facility] Oncology and Hematology - Josh [address] [place] [address] Quique Palomo MD 10/21/2024 External Device Data STL ABSTRACTION Provider, Abstract 10/14/2024 Orders Only [facility] Oncology and Hematology - Josh [address] [place] [address] Quique Palomo MD from Last 3 Months Family History Relation Name Status Comments Father Alive PA at age 45 Sister Alive PA at age 39 Social History Tobacco Use [...] on file 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
--- OUTSIDE RECORDS SUMMARY | 2024-12-19 10:59 | XMS_ITS | Clinical Summary ---
Author Organization [facility] Address [address] [place] [address] Care Team Providers Care Application Lead Name Role Phone Babita Reyes PA-C Primary Care Provider [phone] Allergies Active Allergy Reactions Criticality Noted Date [...] Problem Noted Date Diagnosed Date COPD exacerbation ([facility]) 09/09/2024 Shock ([facility]) 09/09/2024 Hypertensive emergency 09/04/2024 Status post biopsy of skin 01/03/2019 Acute CVA (cerebrovascular accident) ([facility]) 12/31/2018 Skin lesion 11/13/2018 Anxiety 12/17/2014 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 (12/31/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 GERD (gastroesophageal reflux disease) 5 Nicotine dependence 08/06/2014 Peripheral vascular disease 10/21/2012 Hypercholesterolemia 05/15/2012 Resolved Problems Problem Noted Date Diagnosed Date Resolved Date Encounter for preventive health examination 12/07/2011 02/13/2020 Encounters Date Type Department Care Team Description 11/20/2024 Telephone [facility] Care Management [address] [place] [address] Yina Bhatia, salon coordinator (Swing bed referral to [facility] from Josh ) 09/25/2024 12:21 PM CDT - 09/25/2024 11:59 PM CDT Hospital Encounter [facility] [address] [place] [address] Babita Reyes PA-C Discharge Disposition: Home or Self Care (Routine Discharge) 09/25/2024 10:30 AM CDT Home Care Visit [facility] Home Care [address] [place] [address] Roxy Ndiaye, PT PT OASIS DISCHARGE 09/25/2024 Travel 09/22/2024 12:00 PM CDT Home Care Visit [facility] Home Care [address] [id number] Shreya Lerma, SHOVEL HANDLE ASSEMBLER SHOVEL HANDLE ASSEMBLER HOME VISIT 09/22/2024 11:00 AM CDT Home Care Visit [facility] Care [address] [place] [address] Olga Mcgee, LOBITO SN DISCIPLINE DISCHARGE 09/22/2024 Home Care Visit [facility] Care [address] [place] [address] Olga Mcgee RN [facility] INTER[facility]LIN[facility] from Last 3 Months Immunizations Immunization Administration Dates Next Due Fluad influenza vaccine, Stephen drivalent (aIIV4), Inactivated, adjuvanted, preservative free, 0.5 mL,IM use 03/16/2018 Fluzone High Dose - >Age 65 (Prefilled Syringe) 03/24/2019,02/17/2017 Influenza (Generic) 04/06/2014,03/19/2012 Influenza Adult (Generic) 03/23/2015,01/31/2013 Pneumococcal (Pneumovax 23) 02/17/2017 Pneumococcal (Prevnar 13) 05/23/2015 Zoster (Zostavax) 61114 Unt/0.65Ml 01/31/2013 Family History Medical History Relation [...] from your doctor or pharmacy? Sometimes 09/09/2024 [employer] Answer Date Recorded In the past 12 months has [facility] [employer], gas, oil, or water [employer] threatened to shut off services in your [...] often do you attend chur ch or roman catholic services? Never 09/09/2024 Do you belong to any clubs o r organizations such as gnosticism groups, unions, fraternal or athletic groups, or [...] Recorded Patient Health Questionnaire-2 Score 0 12/15/2022 [facility] - Occupational [...] any time in the past 12 m [facility], were you homeless or living in a [facility] (including now)? 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 positioner Procedure Name Priority Date/Time Associated Diagnosis Comments [...] 3:42 PM Narrative 09/25/2024 3:51 PM CDT [facility] [address] [place] [address] EXAMINATION: Digital bilateral screening mammogram with 3-D [...] 166 <200 MG/DL 01/01/2019 7:42 AM CDT [facility] TRIGLYCERIDES 129 <150 MG/DL 01/01/2019 7:42 AM T [facility] HDL 44 >40.0 MG/DL 01/01/2019 7:42 AM T [facility] LDL (CALCULATED) 96 <100 MG/DL 01/02/20 19 7:42 AM T [facility] NON HDL CHOLESTEROL 122 <130 MG/DL 01/01 7:42 AM CDT [facility] CHOL/HDL RATIO 3.8 0.0 - 4.5 01/01/2019 7:42 AM T [facility] VLDL CALCULATION 26 5 - 55 MG/DL 01/01/2019 7:42 AM T [facility] LIPID INTERPRETATION 01/01/2019 7:42 AM T [facility] Comment: [facility] CONCENSUS REPORT RECOMMENDATIONS: ADULT CHILD LOW RISK: CHOLESTEROL <200 <170 TRIGLYCERIDE <150 --- HDL >=60 --- LDL <100 <110 BORDERLINE: CHOLESTEROL 200-239 170-199 TRIGLYCERIDE 150-199 --- HDL 40-59 --- LDL 100-159 110-129 HIGH RISK: CHOLESTEROL >=240 >=200 TRIGLYCERIDE >=200 --- HDL <40 --- LDL >=160 >=130 01/01/2019 6:15 AM CDT Dayna Gold MD LABORATORY Final Result [facility] [address] [id number], from Last 3 Months or Most Recently Relevant to Health Maintenance Insurance MEDICARE MEDICARE [facility] BLUE [facility] Advance Directives * Full Code (Latest [...] 11:22 PM 01/01/2019 8:48 PM Care Teams Application Lead Relationship Specialty Start Date End Date Babita Reyes PA-C [address] [place], [place] [address] [place] [address] PCP - General PHYSICIAN JAVASCRIPT PROGRAMMER 08/26/22
--- NOTE | 2025-02-04 13:10 | P.DN_ITS ---
Discharge Summary Date and Time Date of : 12/17/24 Time of : 22:35 Provider Pronounced By: 2 RNs Name of First RN That Pronounced: Micki Headley RN Name of Second RN That Pronounced: Mackenzie Pandey RN Probable Cause of Probable Cause of : Acute respiratory failure secondary to Pneumonia, CHF, lung mass Summary Hospital Course: Dawn Bocanegra is a 73-year-old woman with chronic respiratory failure on oxygen, COPD, tobacco abuse with smoking up until her November 11 admission, lung cancer in the RLL s/p SBRT completed 10/09/22. Her recent admission was from home, November 11- for postobstructive pneumonia in the right lower lobe. She has panlobular emphysema with 118 pack year history of tobacco abuse. She went to rehab from November 21 through , was readmitted to the hospital side without going home, had weakness, coughing, clear sputum, and an increase in her O2 need. She admitted 12/01 with weakness, was on 2 L/min. CXR 12/04 shows worsening interstitial infiltrates on CXR and O2 need has increased. She has been treated with IV Rocephin and oral azithromycin. Last admission, she was negative in influenza A/B, RSV and SARS-CoV-2, mycoplasma titers were normal, urine antigen for strep pneumonia Legionella were negative. MRSA nasal swab was negative. Extended respiratory pathogen panel was negative. She was loaded up on antibiotics, azithromycin, meropenem and vancomycin, changed to cefepime, Flagyl and doxycycline when she was admitted to the floor. 12/16/2024: Worsening respiratory status. Now requiring BiPAP treatment. Chest x-ray reviewed. Discussed with Pulmonary. On treatment for pneumonia with meropenem which will be continued. Worsening leukocytosis. Discussed with family. Patient went into paroxysm of ventricular tachycardia that required cardioversion 12/15/2024. Cardiology consulted. Add on beta-dalila. CT head for somnolence negative for any intracranial bleed. For right leg DVT will give therapeutic dose of Lovenox. Hypernatremia worsening started on D5 water. CARINA worsening with creatinine up to 2. Diuresis on hold currently. Overall poor prognosis with declining respiratory status along with paroxysmal ventricular tachycardia. Discussed with the son and decision was made to transition to comfort based care/hospice. Dawn Bocanegra is a 73-year-old woman with chronic respiratory failure on oxygen, COPD, tobacco abuse with smoking up until her November 11 admission, lung cancer in the RLL s/p SBRT completed 10/09/22. Her recent admission was from home, November 11- for postobstructive pneumonia in the right lower lobe. She has panlobular emphysema with 118 pack year history of tobacco abuse. She went to rehab from November 21 through , was readmitted to the hospital side without going home, had weakness, coughing, clear sputum, and an increase in her O2 need. She admitted 12/01 with weakness, was on 2 L/min. CXR 12/04 shows worsening interstitial infiltrates on CXR and O2 need has increased. She has been treated with IV Rocephin and oral azithromycin. Last admission, she was negative in influenza A/B, RSV and SARS-CoV-2, mycoplasma titers were normal, urine antigen for strep pneumonia Legionella were negative. MRSA nasal swab was negative. Extended respiratory pathogen panel was negative. She was loaded up on antibiotics, azithromycin, meropenem and vancomycin, changed to cefepime, Flagyl and doxycycline when she was admitted to the floor. 12/17/2023 I saw her via telehealth with the assistance of Amol Headley RN. She was on bipap for some time today but is now on 5L by va. She is lethargic but did answer no when asked if she is in pain. We are unable to get a pulse ox reading or a BP. Resp rate is 22 and shallow. Her son/POA just wants her comfortable, wants DNR. Additional Data Confirmation of as documented by pronouncing clinician: Pupillary Reflex, Palpable Pulses, Response to Stimuli, Heart Tones and Breath Sounds Name of Provider Notified: Winnie Dorsey Time Provider Notified: 23:00 Family Requests Autopsy: No Substance Abuse Counselor Notified: Yes Date [facility] Notified of : 12/17/24 Time [facility] Notified of : 23:15
== END 2024-12-18 04:36 | disposition expired | DRG 951 ==
LOC: ANH3MED 12-19 10:57
PROVIDERS: Admitting Provider Internal Medicine Adolescent Medicine; PCP Physician Assistant Medical; Visit Provider Internal Medicine Adolescent Medicine
DX: Z51.5 Encounter for palliative care (principal); J18.9 Pneumonia, unspecified organism; J96.21 Acute and chronic respiratory failure with hypoxia; C34.31 Malignant neoplasm of lower lobe, right bronchus or lung; I47.20 Ventricular tachycardia, unspecified; I82.401 Acute embolism and thrombosis of unspecified deep veins of right lower extremity; E87.0 Hyperosmolality and hypernatremia; N17.9 Acute kidney failure, unspecified; J43.1 Panlobular emphysema; Z99.81 Dependence on supplemental oxygen; Z87.891 Personal history of nicotine dependence; Z86.73 Personal history of transient ischemic attack (TIA), and cerebral infarction without residual deficits; I10 Essential (primary) hypertension; Z95.5 Presence of coronary angioplasty implant and graft
CPT/HCPCS: A9270; J1171